=== PATIENT | female | born 1965 | race Caucasian/White ===

== ENCOUNTER 2019-01-30 05:41 | Outpatient (CLI) | payer BC ==
[~2019-01-30] VITALS: Ht 160 cm; Wt 78.5 kg
[2019-01-30] MEDS ORDERED: LEVO5TAB12 PO (10:21)
[2019-01-30] MEDS ORDERED: CYCL10TA9 PO (10:21)
[2019-01-30] MEDS ORDERED: PANT40TA3 PO (10:21)
[2019-01-30] MEDS ORDERED: CITA40TA11 PO (10:21)
[2019-01-30] MEDS ORDERED: DUPI300S SQ (10:21)
[2019-01-30] MEDS ORDERED: MAGN400T39 PO (10:21)
[2019-01-30] MEDS ORDERED: CELE-63 PO (10:21)
[2019-01-30] MEDS ORDERED: MIRT30TA6 PO (10:21)
[2019-01-30] MEDS ORDERED: METO-387 PO (10:21)
== END 2019-01-30 10:22 | disposition home or self-care (01) ==
LOC: PREOP 05:41
PROVIDERS: ATTEND Specialist
DX: Z01.818 Encounter for other preprocedural examination (principal)

== ENCOUNTER 2019-02-01 07:32 | Day surgery (SDC) | payer BC ==
[~2019-02-01] VITALS: Ht 160 cm; Wt 78.5 kg
[~2019-02-01 07:32] MED LIST: CELE-63 PO; CITA40TA11 PO; CYCL10TA9 PO; DUPI300S SQ; LEVO5TAB12 PO; MAGN400T39 PO; METO-387 PO; MIRT30TA6 PO; PANT40TA3 PO
[2019-02-01 07:45] VITALS: BP 122/90
[2019-02-01] MEDS ORDERED: MOXIFLOXACIN OPHTH SOLN 5 MG/ML 0.3 ML SYRINGE OP ONE (07:45)
[2019-02-01] MEDS ORDERED: LIDOCAINE PF 1% 2 ML AMP IR PRN (07:45)
[2019-02-01] MEDS ORDERED: MIDAZOLAM 2 MG/2 ML (VERSED) VIAL ONE (07:45)
[2019-02-01] MEDS ORDERED: TIMOLOL MALEATE 0.5% 5 ML (TIMOPTIC) BTL OU PRN (07:45)
[2019-02-01] MEDS ORDERED: POVIDONE (BETADINE) OPHTH SOLN 5% 30 ML OP ONE (07:45)
[2019-02-01] MEDS: TETRACAINE 0.5% OPHTH SOLN 4 ML BTL (SINGLE DOSE ONLY) OU PRN ×3 (07:46→08:03)
[2019-02-01] MEDS: PHENYLEPHRINE 10% OPHTH (NEO-SYN) 5 ML BTL OU SCH ×3 (07:53→08:03)
[2019-02-01] MEDS: CYCLOPENTOLATE 1% (CYCLOGYL) 2 ML DROPS OP SCH ×3 (07:53→08:03)
--- NOTE | 2019-02-01 07:58 | Ophthalmologist Pre-Op Note ---
Pre-Operative Progress Note H&P Reviewed The H&P was reviewed, patient examined and no changes noted. Date H&P Reviewed: Feb 01, 2019 Time H&P Reviewed: 07:58 Pre-Op Dx Cataract, Right Eye JAKE PAYTON MD Feb 01, 2019 07:58
[2019-02-01] MEDS ORDERED: acetaZOLAMIDE ER 500 MG CAP (DIAMOX SEQUELS) PO ONE (08:30)
--- NOTE | 2019-02-01 08:30 | Ophthalmology Operative Report ---
Cataract removal/placement IOL PREOPERATIVE DIAGNOSIS: Cataract Right Eye POSTOPERATIVE DIAGNOSIS: Cataract Right Eye PROCEDURE: Cataract removal and placement of posterior chamber implant, right eye SURGEON: Geoff Payton ANESTHESIA: Topical with sedation COMPLICATIONS: None ESTIMATED BLOOD LOSS: Minimal DESCRIPTION OF PROCEDURE: After proper informed consent was obtained, the patient, a 53 female, was taken to the Operating Room and the right eye was anesthetized with tetracaine. The right eye was then prepped and draped in the usual manner. A wire lid speculum was placed. A paracentesis was made at the left hand position. Preservative free lidocaine was injected into the anterior chamber followed by viscoelastic. A clear corneal incision was made in the temporal position. A capsulorrhexis was preformed and the central nuclear and cortical material were removed. The posterior capsule was polished and Oskar AU00T0 21.5 IOL was placed into the capsular bag. The residual viscoelastic was aspirated and balanced saline solution was injected into the anterior chamber. Moxifloxacin was injected into the anterior chamber. The wound was checked and found to be water tight. The patient tolerated the procedure well without complications. GEOFF PAYTON MD Feb 01, 2019 08:30
[2019-02-01 08:38] VITALS: BP 108/79
--- NOTE | 2019-02-01 10:26 | Anesthesia-General Post-Op ---
MAC Patient Condition Mental Status/LOC: Same as Preop Cardiovascular: Satisfactory Nausea/Vomiting: Absent Respiratory: Satisfactory Pain: Controlled Complications: Absent Post Op Complications Complications None Follow Up Care/Instructions Patient Instructions None needed. Anesthesiology Discharge Order Discharge Order Patient is doing well, no complaints, stable vital signs, no apparent adverse anesthesia problems. No complications reported per nursing. SHREYAS SELF CRNA Feb 01, 2019 10:26
== END 2019-02-01 08:38 | disposition home or self-care (01) ==
LOC: SDC 07:32
PROVIDERS: ATTEND Specialist
DX: H25.11 Age-related nuclear cataract, right eye (principal); I10 Essential (primary) hypertension; F32.9 Major depressive disorder, single episode, unspecified; F17.200 Nicotine dependence, unspecified, uncomplicated; Z88.5 Allergy status to narcotic agent; Z79.1 Long term (current) use of non-steroidal anti-inflammatories (NSAID); Z79.899 Other long term (current) drug therapy; Z80.8 Family history of malignant neoplasm of other organs or systems

== ENCOUNTER 2019-02-06 09:57 | Outpatient (CLI) | payer BC | END 2019-02-06 10:08 | disposition home or self-care (01) | LOC: PREOP 09:57 | PROVIDERS: ATTEND Specialist | DX: Z01.818 Encounter for other preprocedural examination (principal) ==

== ENCOUNTER 2019-02-08 08:20 | Day surgery (SDC) | payer BC ==
[~2019-02-08] VITALS: Ht 160 cm; Wt 78.5 kg
[2019-02-08] MEDS ORDERED: PHENYLEPHRINE 10% OPHTH (NEO-SYN) 5 ML BTL ONE (08:26)
[2019-02-08 08:28] VITALS: BP 126/61
[2019-02-08] MEDS ORDERED: MOXIFLOXACIN OPHTH SOLN 5 MG/ML 0.3 ML SYRINGE OP ONE (08:30)
[2019-02-08] MEDS ORDERED: POVIDONE (BETADINE) OPHTH SOLN 5% 30 ML OP ONE (08:30)
[2019-02-08] MEDS ORDERED: TIMOLOL MALEATE 0.5% 5 ML (TIMOPTIC) BTL OU PRN (08:30)
[2019-02-08] MEDS ORDERED: LIDOCAINE PF 1% 2 ML AMP IR PRN (08:30)
[2019-02-08] MEDS: TETRACAINE 0.5% OPHTH SOLN 4 ML BTL (SINGLE DOSE ONLY) OU PRN ×4 (08:34→08:53)
[2019-02-08] MEDS: PHENYLEPHRINE 10% OPHTH (NEO-SYN) 5 ML BTL OU SCH ×2 (08:41→08:53)
[2019-02-08] MEDS: CYCLOPENTOLATE 1% (CYCLOGYL) 2 ML DROPS OP SCH ×3 (08:41→08:53)
--- NOTE | 2019-02-08 08:53 | Ophthalmologist Pre-Op Note ---
Pre-Operative Progress Note H&P Reviewed The H&P was reviewed, patient examined and no changes noted. Date H&P Reviewed: Feb 08, 2019 Time H&P Reviewed: 08:53 Pre-Op Dx Cataract, Left Eye JAKE PAYTON MD Feb 08, 2019 08:53
[2019-02-08] MEDS ORDERED: MIDAZOLAM 2 MG/2 ML (VERSED) VIAL ONE (08:56)
--- NOTE | 2019-02-08 09:38 | Ophthalmology Operative Report ---
Cataract removal/placement IOL PREOPERATIVE DIAGNOSIS: Cataract Left Eye POSTOPERATIVE DIAGNOSIS: Cataract Left Eye PROCEDURE: Cataract removal and placement of posterior chamber implant, left eye SURGEON: Geoff Payton ANESTHESIA: Topical with sedation COMPLICATIONS: None ESTIMATED BLOOD LOSS: Minimal DESCRIPTION OF PROCEDURE: After proper informed consent was obtained, the patient, a 53 female, was taken to the Operating Room and the left eye was anesthetized with tetracaine. The left eye was then prepped and draped in the usual manner. A wire lid speculum was placed. A paracentesis was made at the left hand position. Preservative free lidocaine was injected into the anterior chamber followed by viscoelastic. A clear corneal incision was made in the temporal position. A capsulorrhexis was preformed and the central nuclear and cortical material were removed. The posterior capsule was polished and an Oskar 21.5 AU00T0 was placed into the capsular bag. The residual viscoelastic was aspirated and balanced saline solution was injected into the anterior chamber. Moxifloxacin was injected into the anterior chamber. The wound was checked and found to be water tight. The patient tolerated the procedure well without complications. GEOFF PAYTON MD Feb 08, 2019 09:38
[2019-02-08 09:45] VITALS: BP 125/80
[2019-02-08] MEDS ORDERED: acetaZOLAMIDE ER 500 MG CAP (DIAMOX SEQUELS) PO ONE (10:00)
--- OUTSIDE RECORDS SUMMARY | 2019-02-08 10:26 | XMS REPORT ---
Author Author WILDA PATEL [facility] Address [address] [place] [address] Care Team Providers Care Claims Supervisor Name Role Phone WILDA PATEL Unavailable PROBLEMS Type Condition ICD9-CM Code AFR89-FQ Code Onset Dates Condition Status SNOMED Code Problem Fatty liver disease, nonalcoholic K76.0 Active 534178354 Problem Psoriasis L40.9 Active 3428029 Problem Hyperlipidemia E78.5 Active 19269793 Problem Metabolic syndrome X E88.81 Active 597840586 Problem Psoriasis vulgaris L40.0 Active 657042051 Problem Elevated serum GGT level R74.8 Active 693729433 Problem Dysthymia F34.1 Active 49975975 Problem Urinary frequency R35.0 Active 659224575 Problem Heartburn R12 Active 48659920 Problem Substance abuse F19.10 Active 78862683 Problem Emotional lability R45.86 Active 62953450 Problem Essential hypertension with goal blood pressure less than 130\/80 I10 Active 27221837 Problem Pulmonary emphysema, unspecified emphysema type J43.9 Active 01771220 Problem Breast cancer screening Z12.39 Active 236508478 Problem Weight loss R63.4 Active 025965382 Problem Colonoscopy refused Z53.20 Active 052672422 Problem Mixed hyperlipidemia E78.2 Active 462280850 Problem Lumbago with sciatica, right side M54.41 Active 991435855750930 Problem Lumbago with sciatica, left side M54.42 Active 919609610 Problem Dental caries K02.9 Active 77206213 Problem High risk medication use Z79.899 Active 482928450 Problem Other chronic pain G89.29 Active 29325094 Problem Hematuria, unspecified type R31.9 Active 44335838 Problem Serum calcium elevated E83.52 Active 81946440 Problem Vitamin D deficiency E55.9 Active 60360947 Problem Epigastric abdominal pain R10.13 Active 50819426 Problem Gynecologic exam normal Z01.419 Active 585470453 Problem Flexural atopic dermatitis L20.89 Active 577639618 Problem 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 Active 238999747 Problem Colon cancer screening Z12.11 Active 048505058 Problem Hypomagnesemia E83.42 Active 658739885 Problem Atopic dermatitis L20.9 Active 22915563 Problem Hypertension I10 Active 24887504 Problem Hypoglycemia E16.2 Active 728606859 ALLERGIES No Information ENCOUNTERS Encounter Location Date Diagnosis [facility] [address] [facility] [id number] [address] November, [facility] [address] [id number] [place] [address] November, Lumbago M54.5 [facility] [address] [id number] [place] [address] November, Leg pain, bilateral M79.604 [facility] [address] [id number] [place] [address]205[address] November, Lumbago M54.5 ; Vision disturbance H53.9 and Hyperlipidemia E78.5 [facility] [address] [id number] [place] [address] November, Elevated AFP R77.2 [facility] [address] [id number] [place] [address] Oct, Flexural atopic dermatitis L20.89 [facility] [address] [id number] [place] [address] Oct, High risk medication use Z79.899 [facility] [address] [id number] [place] [address] Aug, [facility] [address] [id number] [place] [address] Jul, [facility] [address] [id number] [place] [address] Jul, Serum calcium elevated E83.52 and Vitamin D deficiency E55.9 [facility] [address] [id number] [place] [address] Jul, [facility] [address] [id number] [place] [address] Jul, Hypertension I10 ; Hypoglycemia E16.2 ; Colon cancer screening Z12.11 and Left upper quadrant pain R10.12 [facility] [address] [id number] [place] [address] Jul, Atopic dermatitis L20.9 [facility] [address] [id number] [place] [address] May, Serum calcium elevated E83.52 ; Fatty liver disease, nonalcoholic K76.0 ; Hypomagnesemia E83.42 ; Vitamin D deficiency E55.9 and Elevated liver enzymes R74.8 [facility] [address] AVSent[facility] [id number] [place] [address] Apr, High risk medication use Z79.899 ; Dysthymia F34.1 ; Fatty liver disease, nonalcoholic K76.0 ; Serum calcium elevated E83.52 and Viral gastroenteritis A08.4 [facility]ITALCapture Educational Consult[address] ServicesADAM[address] [id number] [place] [address] Feb, [facility] [address] [id number] [place] [address] November, Serum calcium elevated E83.52 and Elevated serum GGT level R74.[address] [id number] [place] [address] November, Fatty liver disease, nonalcoholic K76.0 [facility] [address] [id number] [place] [address] November, High risk medication use Z79.899 ; Hematuria, unspecified type R31.9 ; Dental caries K02.9 ; Urinary frequency R35.0 and Substance abuse F19.10 [facility] [place] [address] AVE [id number] [place] [id number] Sep, [facility] Consult[address]ADAM[address] [id number] [place] [address] Aug, [facility] [address] [id number] [place] 287[address] Aug, [facility] [address] [id number] [place] [address] Jul, [facility] [address] [id number] [place] 66[address] Jun, [facility] [address] [id number] [place] [address]5928[address] Jun, Hematuria, unspecified type R31.[address] [facility] [address] [id number] [place] [address] May, Lumbago with sciatica, left side M54.42 and Hematuria, unspecified type R31.[address] [facility] [address] [id number] [place] [address] May, Hematuria, unspecified type R31.[address] [facility] [address] [id number] [place] [address] Apr, High risk medication use Z79.899 ; Lumbago with sciatica, left side M54.42 ; Lumbago with sciatica, right side M54.41 ; Other chronic pain G89.29 ; Emotional lability R45.86 and Colonoscopy refused Z53.[address] [facility] [address] [id number] [place] [address] Feb, [facility] [address] [id number] [place] [address] Feb, [facility] [address] [facility] [id number] [place] [address] Jan, [facility] [address] [id number] [place] [address] Jan, Psoriasis vulgaris L40.[address] [facility] [address] [id number] [place] [address] Jan, High risk medication use Z79.[address] [facility] [address] [id number] [place] [address] Dec, Psoriasis vulgaris L40.[address] [facility] [address] [id number] [place] [id number] Oct, Mixed hyperlipidemia E78.2 and High risk medication use Z79.[address] [facility] [address] [id number] [place] [address] Oct, [facility] [address] [id number] [place] [address] Oct, [facility] [address] [id number] [place] [address] Oct, Hyperlipidemia E78.5 and Weight loss R63.[address] [facility] [address] [id number] [place] 16[address] Oct, Gynecologic exam normal Z01.419 ; Breast cancer screening Z12.39 ; Weight loss R63.4 and Colon cancer screening Z12.[address] [facility] [address] [id number] [place] [address] Jul, [facility] [address] [id number] [place] 35538[address] Jul, High risk medication use Z79.[address] [facility] [address] [id number] [place] 458[address]190 Jul, Metabolic syndrome X E88.81 ; Elevated serum GGT level R74.8 ; Dysthymia F34.1 and 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 [facility] [address] [id number] [place] [address] Jun, [facility] [address] [id number] [place] 605[address]87[address] May, [facility] [address] [id number] [place] [address] May, [facility] [address] [id number] [place] [address] May, High risk medication use Z79.[address] [facility] [address] [id number] [place] [address] May, [facility] [address] [id number] [place] [address] May, Psoriasis vulgaris L40.0 and 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.[address] [facility] [address] [id number] [place] [address] Mar, Hyperlipidemia E78.[address] [facility] [address] [id number] [place] [address]49[address] Mar, [facility] [address] [id number] [place] 8558[address] Mar, [facility] [address] [id number] [place] 151986013 Mar, Fatty liver disease, nonalcoholic K76.0 and Hyperlipidemia E78.[address] [facility] [address] [id number] [place] [address] Mar, [facility] [address] [id number] [place] 8479[address] Mar, Fatty liver disease, nonalcoholic K76.0 ; Psoriasis L40.9 and Hyperlipidemia E78.[address] [facility] [address] [id number] [place] [address] Mar, [facility] [address] [facility] [id number] [place] [address] Feb, [facility] [address] [id number] [place] 18[address]806[address] Feb, [facility] [address] [id number] [place] 85[address] Jan, [facility] [address] [id number] [place] 47[address] Dec, [facility] [address] [id number] [place] 1775[address]487 Dec, [facility] [address] [facility] [id number] [address] November, [facility] [address] [id number] [place] [address]6835[address] November, [facility] [address] [address] [id number] [place] 386505881 Oct, [facility] [address] [id number] [place] 445204703 Oct, Fatty liver disease, nonalcoholic K76.0 and Encounter for immunization Z23 [facility] [address] [id number] [address] Oct, [facility] [address] [id number] [place] 6[address]63[address] Sep, Fatty liver disease, nonalcoholic K76.0 [facility] [address] [id number] [place] 72461970[address] Sep, Fatty liver disease, nonalcoholic K76.0 ; High risk medication use Z79.899 ; Emotional lability R45.86 ; Hyperlipidemia E78.5 and Essential hypertension with goal blood pressure less than 130\/80 I10 [facility] [address] [facility] [id number] [place] [address] Sep, [facility] [address] [id number] [place] 025877419 Aug, Mixed hyperlipidemia E78.2 and Heartburn R12 [facility] [address] [id number] [place] 872389765 Aug, High risk medication use Z79.899 ; Emotional lability R45.86 ; Pulmonary emphysema, unspecified emphysema type J43.9 and Heartburn R12 [facility] [address] [id number] [place] 626742510 Jul, [facility] [address] [id number] [place] 732845580 Jul, [facility] [address] [id number] [place] 7941318[address] Jun, [facility] JAIR [address] [place] [address] AVE [id number] [place] 517733896 May, Right upper quadrant abdominal pain R10.11 and Fatty liver K76.0 [facility] [address] [place] [address] AVE [id number] [place] 214424650 Apr, Elevated AFP R77.2 ; Fatty liver K76.0 ; Unspecified cirrhosis of liver K74.60 ; High risk medication use Z79.899 ; Anhedonia R45.84 and Psoriasis L40.9 [facility] S[address]iento[address] [place] [address] AVE [id number] [place] 834131242 Apr, [facility] [address] [place] [address] AVSent[facility] Medical [id number] [place] 597787256 Apr, Elevated liver enzymes R74.8 [facility] [address] [place] [address] AVE [id number] [place] 113741342 Apr, Abdominal pain, left lower quadrant R10.32 ; Mixed hyperlipidemia E78.2 and Hyperlipidemia 272.4 [facility] [address] [id number] [place] 088[address]130 09 Apr, 2015 Encounter for routine gynecological examination Z01.419 and Breast cancer screening Z12.39 [facility] S[address]iento[address] [place] [address] AVE [id number] [place] 782292331 Apr, Abdominal pain, left lower quadrant R10.32 ; Mixed hyperlipidemia E78.2 and Lumbago M54.5 [facility] [address] [place] [address] AVE [id number] [place] 420143034 17 Mar, 2015 Psoriasis 696.1 ; Hyperlipidemia 272.4 and Chronic pain 338.29 [facility] [address] [id number] [place] 182494547 Mar, [facility] Sarmiento[address] [place] [address] A[address] [id number] [place] 595935984 Mar, [facility] [address] [id number] [place] 911110341 Mar, Rash and nonspecific skin eruption 782.[address] [facility] [address] [id number] [place] 653323906 Feb, Dermatitis 692.9 and Thoracic or lumbosacral neuritis or radiculitis, unspecified 724.4 [facility] [address] [id number] [place] 029176142 Feb, Dermatitis 692.9 and Follow-up examination V67.9 [facility] [address] [id number] [place] 8501535[address] Jan, [facility] [address] [id number] [place] 930464700 Jan, Allergic dermatitis 692.9 [facility] [address] [id number] [place] 589365687 Jan, Rash and nonspecific skin eruption 782.1 [facility] [address] [id number] [place] 720063584 Jan, [facility] [address] [id number] [place] 796930871 Jan, Dermatitis 692.9 and Environmental allergies V15.09 [facility] [address] [id number] [place] 044650527 Dec, [facility] [address] [id number] [place], [place] 193850431 Dec, [facility] [address] [id number] [place] 738281391 Dec, [facility] [address] [id number] [place] 283097315 November, [facility] [address] [id number] [place], [place] 393420779 November, Muscle spasm 728.85 [facility] [address] [facility] [id number] [place] [address] 14 Oct, 2014 [facility] [address] [id number] [place] [address] 13 Oct, 2014 [facility] [place] [facility] [address] [id number] [place] [address] 23 Sep, 2014 [facility] [address] [id number] [place] [address] 23 Sep, 2014 [facility] [place] [facility] [address] [id number] [place] [address] 20 Sep, 2014 [facility] [address] [id number] [place] [address] 20 Sep, 2014 [facility] [place] [facility] [address] [id number] [place] [address] 19 Sep, 2014 [facility] [place] [facility] [address] [id number] [place] [address] 19 Sep, 2014 [facility] [address] [id number] [place] [address] 16 Sep, 2014 [facility] [place] [facility] [address] [id number] [place] [address] 16 Sep, 2014 [facility] [address] [id number] [place] [address] Aug, [facility] [place] [facility] [address] [id number] [place] [address] Aug, [facility] [place] [facility] [address] [id number] [place] [address] 15 Jul, 2014 [facility] [place] [facility] [address] [id number] [place] [address] Jul, [facility] [place] [facility] [address] [id number] [place] [address] Jul, [facility] [place] [facility] [address] [id number] [place] [address] Jul, [facility] [place] [facility] [address] [id number] [place] [address] Jul, [facility] [place] [facility] [address] [id number] [place] [address] Jul, [facility] [place] [facility] [address] [id number] [place] [address] Jun, [facility] [place] [facility] [address] [id number] [place] [address] Jun, [facility] [place] [facility] [address] [id number] [place] [address] Jun, [facility] [place] [facility] [address] [id number] [place] [address] Jun, [facility] [place] [facility] [address] [id number] [place] [address] Jun, [facility] [place] [facility] [address] [id number] [place] [address] Jun, [facility] [place] [facility] [address] [id number] [place] [address] Jun, [facility] [place] [facility] [address] [id number] [place] [address] Jun, [facility] [place] [facility] [address] [id number] [place] [address] May, [facility] [place] [facility] [address] [id number] [place] [address] May, [facility] [place] [facility] [address] [id number] [place] [address] May, [facility] [place] [facility] [address] [id number] [place] [address] May, [facility] [place] [facility] [address] [id number] [place] [address] May, [facility] [place] [facility] [address] [id number] [place] [address] Apr, [facility] [place] [facility] [address] [id number] [place] [address] Apr, [facility] [place] [facility] [address] [id number] [place] [address] Apr, [facility] [place] [facility] [address] [id number] [place] [address] 24 Apr, 2014 [facility] [place] [facility] [address] [id number] [place] [address] Apr, [facility] [place] [facility] [address] [id number] [place] [address] Apr, [facility] [place] [facility] [address] [id number] [place] [address] Apr, [facility] [place] [facility] [address] [id number] [place] [address] Apr, [facility] [place] [facility] [address] [id number] [place] [address] Apr, [facility] [place] [facility] [address] [id number] [place] [address] 20 Apr, 2014 [facility] [place] [facility] [address] [id number] [place] [address] 17 Apr, 2014 [facility] [place] [facility] [address] [id number] [place] [address] 17 Apr, 2014 [facility] [place] [facility] [address] [id number] [place] [address] 16 Apr, 2014 [facility] [place] [facility] [address] [id number] [place] [address] 16 Apr, 2014 [facility] [place] [facility] [address] [id number] [place] [address] 15 Apr, 2014 [facility] [place] [facility] [address] [id number] [place] [address] 15 Apr, 2014 [facility] [place] [facility] [address] [id number] [place] [address] Apr, [facility] [place] [facility] [address] [id number] [place] [address] Apr, [facility] [place] [facility] [address] [id number] [place] [address] Apr, [facility] [place] [facility] [address] [id number] [place] [address] Apr, [facility] [place] [facility] [address] [id number] [place] [address] Apr, [facility] [place] [facility] [address] [id number] [place] [address] Apr, [facility] [place] [facility] [address] [id number] [place] [address] Apr, [facility] [place] [facility] [address] [id number] [place] [address] Apr, [facility] [place] [facility] [address] [id number] [place] [address] Apr, [facility] [place] [facility] [address] [id number] [place] [address] Apr, [facility] [place] [facility] [address] [id number] [place] [address] Mar, [facility] [place] [facility] [address] [id number] [place] [address] Mar, [facility] [place] [facility] [address] [id number] [place] [address] Feb, [facility] [place] [facility] [address] [id number] [place] [address] Feb, [facility] [place] [facility] [address] [id number] [place] [address] Feb, [facility] [place] [facility] [address] [id number] [place] [address] Feb, [facility] [place] [facility] [address] [id number] [place] [address] Jan, [facility] [place] [facility] [address] [id number] [place] [address] Jan, [facility] [place] [facility] [address] [id number] [place] [address] Jan, [facility] [place] [facility] [address] [id number] [place] [address] Jan, [facility] [place] [facility] [address] [id number] [place] [address] Jan, [facility] [place] [facility] [address] [id number] [place] [address] Jan, [facility] [place] [facility] [address] [id number] [place] [address] Jan, [facility] [place] [facility] [address] [id number] [place] [address] Jan, [facility] [place] [facility] [address] [id number] [place] [address] Jan, [facility] [place] [facility] [address] [id number] [place] [address] Jan, [facility] [place] [facility] [address] [id number] [place] [address] Jan, [facility] [place] [facility] [address] [id number] [place] [address] Dec, [facility] [place] [facility] [address] [id number] [place] [address] Dec, [facility] [place] [facility] [address] [id number] [place] [address] Dec, [facility] [place] [facility] [address] [id number] [place] [address] Dec, [facility] [place] [facility] [address] [id number] [place] [address] November, [facility] [address] [id number] [place] [address] November, [facility] [address] [id number] [place] [address] November, [facility] [address] [id number] [place] [address] November, [facility] [address] [id number] [place] [address] November, [facility] [address] [id number] [place] [address] November, [facility] [address] [id number] [place] [address] November, [facility] [address] [id number] [place] [address] November, [facility] [address] [id number] [place] [address] November, [facility] [address] [id number] [place] [address] November, [facility] [address] [id number] [place] [address] November, [facility] [address] [id number] [place] [address] Oct, [facility] [address] [id number] [place] [address] Oct, [facility] [place] [facility] [address] [id number] [place] [address] Oct, [facility] [place] [facility] [address] [id number] [place] [address] Oct, [facility] [address] [id number] [place] [address] Oct, [facility] [place] [facility] [address] [id number] [place] [address] 15 Oct, 2013 [facility] [place] [facility] [address] [id number] [place] [address] 28 Sep, 2013 [facility] [place] [facility] [address] [id number] [place] [address] Sep, [facility] [place] [facility] [address] [id number] [place] [address] Sep, [facility] [place] [facility] [address] [id number] [place] [address] Sep, [facility] [place] [facility] [address] [id number] [place] [address] Sep, [facility] [place] [facility] [address] [id number] [place] [address] Sep, [facility] [place] [facility] [address] [id number] [place] [address] Sep, [facility] [place] [facility] [address] [id number] [place] [address] Sep, [facility] [place] [facility] [address] [id number] [place] [address] Sep, [facility] [place] [facility] [address] [id number] [place] [address] Sep, [facility] [place] [facility] [address] [id number] [place] [address] Sep, [facility] [place] [facility] [address] [id number] [place] [address] Aug, [facility] [place] [facility] [address] [id number] [place] [address] Aug, [facility] [place] [facility] [address] [id number] [place] [address] Aug, [facility] [place] [facility] [address] [id number] [place] [address] Aug, [facility] [address] [id number] [place] [address] Jul, [facility] [place] [facility] [address] [id number] [place] [address] Jul, [facility] [place] [facility] [address] [id number] [place] [address] Jul, [facility] [place] [facility] [address] [id number] [place] [address] Jul, [facility] [place] [facility] [address] [id number] [place] [address] Jul, [facility] [place] [facility] [address] [id number] [place] [address] Jul, [facility] [place] [facility] [address] [id number] [place] [address] Jul, [facility] [place] [facility] [address] [id number] [place] [address] Jul, [facility] [place] [facility] [address] [id number] [place] [address] Jul, [facility] [place] [facility] [address] [id number] [place] [address] Jul, [facility] [place] [facility] [address] [id number] [place] [address] Jul, [facility] [place] [facility] [address] [id number] [address] Jul, [facility] [place] [facility] [address] [id number] [place] [address] Jul, [facility] [place] [facility] [address] [id number] [place] [address] Jun, [facility] [place] [facility] [address] [id number] [place] [address] Jun, [facility] [place] [facility] [address] [id number] [place] [address] Jun, [facility] [address] [id number] [place] [address] Jun, [facility] [place] [facility] [address] [id number] [place] [address] Jun, [facility] [place] [facility] [address] [id number] [place] [address] Jun, [facility] [address] [id number] [place] [address] Jun, [facility] [place] [facility] [address] [id number] [place] [address] Jun, [facility] [address] [id number] [place] [address] Jun, [facility] [address] [id number] [place] [address] Jun, [facility] [address] [id number] [place] [address] Jun, [facility] [place] [facility] [address] [id number] [place] [address] Jun, [facility] [place] [facility] [address] [id number] [place] [address] Jun, [facility] [place] [facility] [address] [id number] [place] [address] Jun, [facility] [place] [facility] [address] [id number] [place] [address] Jun, [facility] [place] [facility] [address] [id number] [place] [address] Jun, [facility] [place] [facility] [address] [id number] [place] [address] Jun, [facility] [place] [facility] [address] [id number] [place] [address] Jun, [facility] [place] [facility] [address] [id number] [place] [address] Jun, [facility] [place] [facility] [address] [id number] [place] [address] Jun, [facility] [place] [facility] [address] [id number] [place] [address] Jun, [facility] [place] [facility] [address] [id number] [place] [address] Jun, [facility] [place] [facility] [address] [id number] [place] [address] Jun, [facility] [place] [facility] [address] [id number] [place] [address] May, [facility] [place] [facility] [address] [id number] [place] [address] May, [facility] [place] [facility] [address] [id number] [place] [address] Apr, [facility] [address] [id number] [id number] Mar, [facility] [address] [facility] [id number] [place] [address] Feb, [facility] [place] [facility] [address] [id number] [place] [address] Feb, [facility] [place] [facility] [address] [id number] [place] [address] Jan, [facility] [place] [facility] [address] [id number] [place] [address] Jan, [facility] [place] [facility] [address] [id number] [place] [address] November, [facility] [place] [facility] [address] [id number] [place] [address] November, [facility] [place] [facility] [address] [id number] [place] [address] Oct, [facility] [address] [facility] [id number] [place] [address] Oct, [facility] [address] [facility] [id number] [place] [id number] November, [facility] [address] [facility] [id number] [place] [address] May, [facility] [address] [facility] [id number] [place] [address] Feb, IMMUNIZATIONS No Known Immunizations SOCIAL HISTORY Never Assessed REASON FOR VISIT PLAN OF CARE VITAL SIGNS MEDICATIONS Unknown Medications RESULTS No Results PROCEDURES No Known procedures INSTRUCTIONS MEDICATIONS ADMINISTERED No Known Medications MEDICAL (GENERAL) HISTORY Type Description Date Medical History hypertension Medical History gastroesophageal reflux disease (GERD) Medical History hyperlipidemia Medical History obesity Medical History chronic pain Medical History psoriasis Medical History abnormal liver enzymes, fatty liver disease Medical History abdominal tumor Medical History anxiety, depression Medical History [facility] abdomen at [facility] 09-14-16 shows a ventral hernia and fatty liver disease Medical History Pt no-showed colonoscopy Medical History no showed mammogram Medical History large hiatal hernia and normal liver per CT Medical History US shows right kidney-column of Bertine and fatty liver Medical History 12-13-18 normal joanne's Medical History 12-12-18 cataract, eye exam Surgical History tonsillectomy Surgical History appendectomy 03/2011 Surgical History hysterectomy, total with bilateral salpingo-oophorectomy (BSO) 03/2011 Surgical History large abdominal tumor/uterus removed 2010 Hospitalization History past surgeries Hospitalization History [facility] back pain /Hernia 10/2018
--- OUTSIDE RECORDS SUMMARY | 2019-02-08 10:27 | XMS REPORT ---
Author Author ANTON REESE Organization [facility] Address [address] [place] [address] Care Team Providers Care Medical Detailist Name Role Phone ANTON REESE Unavailable PROBLEMS Type Condition ICD9-CM Code BLP77-LN Code Onset Dates Condition Status SNOMED Code Problem Fatty liver disease, nonalcoholic K76.0 Active 298197426 Problem Psoriasis L40.9 Active 1169161 Problem Hyperlipidemia E78.5 Active 27939973 Problem Metabolic syndrome X E88.81 Active 760027470 Problem Psoriasis vulgaris L40.0 Active 560416915 Problem Elevated serum GGT level R74.8 Active 365084932 Problem Dysthymia F34.1 Active 40768745 Problem Urinary frequency R35.0 Active 682694837 Problem Heartburn R12 Active 07986856 Problem Substance abuse F19.10 Active 02942494 Problem Emotional lability R45.86 Active 05503054 Problem Essential hypertension with goal blood pressure less than 130\/80 I10 Active 52277450 Problem Pulmonary emphysema, unspecified emphysema type J43.9 Active 02110431 Problem Breast cancer screening Z12.39 Active 670639868 Problem Weight loss R63.4 Active 397720918 Problem Colonoscopy refused Z53.20 Active 776524267 Problem Mixed hyperlipidemia E78.2 Active 009726986 Problem Lumbago with sciatica, right side M54.41 Active 810064989018418 Problem Lumbago with sciatica, left side M54.42 Active 358583182 Problem Dental caries K02.9 Active 47820894 Problem High risk medication use Z79.899 Active 069831428 Problem Other chronic pain G89.29 Active 59563825 Problem Hematuria, unspecified type R31.9 Active 68040972 Problem Serum calcium elevated E83.52 Active 11470101 Problem Vitamin D deficiency E55.9 Active 41236370 Problem Epigastric abdominal pain R10.13 Active 48245970 Problem Gynecologic exam normal Z01.419 Active 306057552 Problem Flexural atopic dermatitis L20.89 Active 690934549 Problem 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 Active 806382783 Problem Colon cancer screening Z12.11 Active 878416486 Problem Hypomagnesemia E83.42 Active 845629331 Problem Atopic dermatitis L20.9 Active 67655055 Problem Hypertension I10 Active 80061877 Problem Hypoglycemia E16.2 Active 402675752 ALLERGIES No Information ENCOUNTERS Encounter Location Date Diagnosis [facility] [address] [id number] [address] November, [facility] [address] [id number][place] [id number] November, Lumbago M54.5 [facility] [address] [id number], [place] [address] November, Leg pain, bilateral M79.604 [facility] [address] [id number], [place] [address] November, Lumbago M54.5 ; Vision disturbance H53.9 and Hyperlipidemia E78.5 [facility] [address] [facility] [address] [id number] [id number] November, Elevated AFP R77.2 [facility] [address] [id number][place] [address] Oct, Flexural atopic dermatitis L20.89 [facility] [address] [id number], [place] [address] Oct, High risk medication use Z79.899 [facility] [address] [id number], [place] [address] Aug, [facility] [address] [id number], [place] [address] Jul, [facility] [address] [id number], [place] [address] Jul, Serum calcium elevated E83.52 and Vitamin D deficiency E55.[address] [facility] [address] [id number], [place] [address] Jul, [facility] [address] [id number], [place] [id number] Jul, Hypertension I10 ; Hypoglycemia E16.2 ; Colon cancer screening Z12.11 and Left upper quadrant pain R10.[address] [facility] [address] [id number], [place] [address] Jul, Atopic dermatitis L20.9 [facility] [id number][place] [address] May, Serum calcium elevated E83.52 ; Fatty liver disease, nonalcoholic K76.0 ; Hypomagnesemia E83.42 ; Vitamin D deficiency E55.9 and Elevated liver enzymes R74.8 [facility] [address] [place] [id number] [address] Apr, High risk medication use Z79.899 ; Dysthymia F34.1 ; Fatty liver disease, nonalcoholic K76.0 ; Serum calcium elevated E83.52 and Viral gastroenteritis A08.4 [facility] [id number], [place] [address] Feb, [facility] [id number], [place] [address] November, Serum calcium elevated E83.52 and Elevated serum GGT level R74.[address] [facility] [address] [id number], [place] [address] November, Fatty liver disease, nonalcoholic K76.[address] [facility] [address] [id number], [place] [address] November, High risk medication use Z79.899 ; Hematuria, unspecified type R31.9 ; Dental caries K02.9 ; Urinary frequency R35.0 [address]19.10 [facility] [id number], [place] [id number] Sep, [facility] [address] [id number] [place] [address] Aug, [facility] [address] [id number] [place] [address] Aug, [facility] [address] [id number], [place] [address] Jul, [facility] [address] [id number], [place] [address] Jun, [facility] [address] [id number], [place] [address] Jun, Hematuria, unspecified type R31.[address] [facility] [address] [id number], [place] [address] May, Lumbago with sciatica, left side M54.42 and Hematuria, unspecified type R31.[address] [facility] [address] [id number], [place] [address] May, Hematuria, unspecified type R31.[address] [facility] [address] [id number], [place] [address] Apr, High risk medication use Z79.899 ; Lumbago with sciatica, left side M54.42 ; Lumbago with sciatica, right side M54.41 ; Other chronic pain G89.29 ; Emotional lability R45.86 and Colonoscopy refused Z53.[address] [facility] [address] [id number], [place] [address] Feb, [facility] [address] [id number], [place] [address] Feb, [facility] [address] [id number], [place] [address] Jan, [facility] [address] [id number], [place] [address] Jan, Psoriasis vulgaris L40.[address] [facility] [address] [id number], [place] 288[address] Jan, High risk medication use Z79.[address] [facility] [address] [id number] [place] [address] Dec, Psoriasis vulgaris L40.[address] [facility] [address] [id number] [place] [address] Oct, Mixed hyperlipidemia E78.2 and High risk medication use Z79.[address] [facility] [address] [id number], [place] 555480277 Oct, [facility] [address] [id number], [place] [address] Oct, [facility] [address] [id number], [place] [address] Oct, Hyperlipidemia E78.5 and Weight loss R63.[address] [facility] [address] [id number], [place] [address] Oct, Gynecologic exam normal Z01.419 ; Breast cancer screening Z12.39 ; Weight loss R63.4 and Colon cancer screening Z12.[address] [facility] [address] [id number], [place] [address] Jul, [facility] [address] [id number], [place] [address] Jul, High risk medication use Z79.[address] [facility] [address] [id number], [place] 85[address] Jul, Metabolic syndrome X E88.81 ; Elevated serum GGT level R74.8 ; Dysthymia F34.1 and 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 [facility] [address] [id number], [place] 48[address]1642 Jun, [facility] [address] [id number], [place] [address]84[address] May, [facility] [address] [id number], [place] [address]10[address]134 May, [facility] [address] [id number] [place] [address] May, High risk medication use Z79.[address] [facility] [address] [id number] [place] [address] May, [facility] [address] [id number] [place] [address] May, Psoriasis vulgaris L40.0 and 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.[address] [facility] [address] [id number] [place] 267[address]87[address] Mar, Hyperlipidemia E78.[address] [facility] [address] [id number] [place] [address] Mar, [facility] [address] [id number] [place] 460368193 Mar, [facility] [address] [id number] [place] 406[address] Mar, Fatty liver disease, nonalcoholic K76.0 and Hyperlipidemia E78.[address] [facility] [address] [id number] [place] 59606[address] Mar, [facility] [address] [id number], [place] 435483820 Mar, Fatty liver disease, nonalcoholic K76.0 ; Psoriasis L40.9 and Hyperlipidemia E78.[address] [facility] [address] [id number] [place] 15[address] Mar, [facility] [address] [id number] [place] [address] Feb, [facility] [address] [id number] [place] 290087[address] Feb, [facility] [address] [id number] [place] 744990138 Jan, [facility] [address] [id number] [place] [address]36106[address] Dec, [facility] [address] [id number] [place] 765274851 Dec, [facility] [address] [id number], [place] [address] November, [facility] [address] [id number] [place] [id number] November, [facility] [address] [id number], [place] 2228[address]666 Oct, [facility] [address] [id number], [place] 267898955 Oct, Fatty liver disease, nonalcoholic K76.0 and Encounter for immunization Z23 [facility] [address] [id number], [place] [address] Oct, [facility] [address] [id number], [place] 415692190 Sep, Fatty liver disease, nonalcoholic K76.0 [facility] [address] [id number], [place] 283599641 Sep, Fatty liver disease, nonalcoholic K76.0 ; High risk medication use Z79.899 ; Emotional lability R45.86 ; Hyperlipidemia E78.5 and Essential hypertension with goal blood pressure less than 130\/80 I10 [facility] [address] [id number], [place] [address] Sep, [facility] [address] [id number], [place] 436162615 Aug, Mixed hyperlipidemia E78.2 and Heartburn R12 [facility] [address] [id number], [place] [address]2767[address] Aug, High risk medication use Z79.899 ; Emotional lability R45.86 ; Pulmonary emphysema, unspecified emphysema type J43.9 and Heartburn R12 [facility] [address] [id number], [place] [address] Jul, [facility] [address] [id number], [place] [id number] Jul, [facility] [address] [id number], [place] 355[address]62[address] Jun, [facility] Beckwith [facility] [address] [id number], [place] [address]38228911 May, Right upper quadrant abdominal pain R10.11 and Fatty liver K76.0 [facility] JAIR [address] [place] [address] AVE [id number], [place] 208057492 Apr, Elevated AFP R77.2 ; Fatty liver K76.0 ; Unspecified cirrhosis of liver K74.60 ; High risk medication use Z79.899 ; Anhedonia R45.84 and Psoriasis L40.9 [facility] [address] [address] [place] [address] AVE [id number], [place] [id number] Apr, [facility] Sarmiento[address] [place] [address] AVE [id number], [place] 774870464 Apr, Elevated liver enzymes R74.8 [facility] [address] [place] [address] AVE [id number], [place] 153888040 Apr, Abdominal pain, left lower quadrant R10.32 ; Mixed hyperlipidemia E78.[address] [facility] [address] [place] [address] AVE [id number], [place] 483204698 Apr, Encounter for routine gynecological examination Z01.419 and Breast cancer screening Z12.39 [facility] Sarmiento[address] [place] [address] AVE [id number], [place] 449522357 Apr, Abdominal pain, left lower quadrant R10.32 ; Mixed hyperlipidemia E78.[address] [address] [place] [address] AVE [id number], [place] [id number] Mar, Psoriasis 696.1 ; Hyperlipidemia 272.4 and Chronic pain 338.29 [facility] [address] [id number], [place] 718955945 Mar, [facility] JAIR S[address] [place] [address] AVE [id number], [place] 123110658 Mar, [facility] [address] [id number] [place] 149567052 Mar, Rash and nonspecific skin eruption 782.1 [facility] [address] [id number] [place] 650582082 Feb, Dermatitis 692.9 and Thoracic or lumbosacral neuritis or radiculitis, unspecified 724.4 [facility] [address] [id number], [place] 000432402 Feb, Dermatitis 692.9 and Follow-up examination V67.[address] [facility] [address] [id number], [place] 155562699 Jan, [facility] [address] [id number], [place] 622298295 Jan, Allergic dermatitis 692.9 [facility] [address] [id number], [place] [id number] Jan, Rash and nonspecific skin eruption 782.1 [facility] [address] [id number], [place] 045388336 Jan, [facility] [address] [id number], [place] 759309815 Jan, Dermatitis 692.9 and Environmental allergies V15.09 [facility] [address] [id number], [place] 928474298 Dec, [facility] [address] [id number] [place] 148768324 Dec, [facility] [address] [id number], [place] 737576877 Dec, [facility] [address] [id number], [place] 1165756[address] November, [facility] [address] [id number], [place] 957357242 November, Muscle spasm 728.85 [facility] [place] [facility] [address] [id number] [place] [address] 14 Oct, 2014 [facility] [place] [facility] [address] [id number] [place] [address] 13 Oct, 2014 [facility] [place] [facility] [address] [id number] [place] [address] 23 Sep, 2014 [facility] [place] [facility] [address] [id number] [place] [address] 23 Sep, 2014 [facility] [place] [facility] [address] [id number] [place] [address] 20 Sep, 2014 [facility] [place] [facility] [address] [id number] [place] [address] 20 Sep, 2014 [facility] [place] [facility] [address] [id number] [place] [address] Sep, [facility] [place] [facility] [address] [id number] [place] [address] 19 Sep, 2014 [facility] [place] [facility] [address] [id number] [place] [address] 16 Sep, 2014 [facility] [place] [facility] [address] [id number] [place] [address] 16 Sep, 2014 [facility] [place] [facility] [address] [id number] [place] [address] Aug, [facility] [place] [facility] [address] [id number], [place] [address] Aug, [facility] [place] [facility] [address] [id number] [place] [address] Jul, [facility] [place] [facility] [address] [id number] [place] [address] 15 Jul, 2014 [facility] [place] [facility] [address] [id number] [place] [address] Jul, [facility] [place] [facility] [address] [id number], [place] [address] Jul, [facility] [place] [facility] [address] [id number] [place] [address] Jul, [facility] [place] [facility] [address] [id number] [place] [address] Jul, [facility] [place] [facility] [address] [id number] [place] [address] Jun, [facility] [place] [facility] [address] [id number] [place] [address] Jun, [facility] [place] [facility] [address] [id number] [place] [address] Jun, [facility] [place] [facility] [address] [id number] [place] [address] Jun, [facility] [place] [facility] [address] [id number] [place] [address] Jun, [facility] [place] [facility] [address] [id number] [place] [address] Jun, [facility] [place] [facility] [address] [id number] [place] [address] Jun, [facility] [place] [facility] [address] [id number] [place] [address] Jun, [facility] [place] [facility] [address] [id number] [place] [address] May, [facility] [place] [facility] [address] [id number] [place] [address] May, [facility] [place] [facility] [address] [id number] [place] [address] May, [facility] [place] [facility] [address] [id number] [place] [address] May, [facility] [place] [facility] [address] [id number] [place] [address] May, [facility] [place] [facility] [address] [id number] [place] [address] Apr, [facility] [place] [facility] [address] [id number] [place] [address] Apr, [facility] [place] [facility] [address] [id number] [place] [address] Apr, [facility] [place] [facility] [address] [id number] [place] [address] Apr, [facility] [place] [facility] [address] [id number] [place] [address] Apr, [facility] [place] [facility] [address] [id number] [place] [address] Apr, [facility] [place] [facility] [address] [id number] [place] [address] Apr, [facility] [place] [facility] [address] [id number] [place] [address] Apr, [facility] [place] [facility] [address] [id number] [place] [address] Apr, [facility] [place] [facility] [address] [id number] [place] [address] 20 Apr, 2014 [facility] [place] [facility] [address] [id number] [place] [address] Apr, [facility] [place] [facility] [address] [id number] [place] [address] 17 Apr, 2014 [facility] [place] [facility] [address] [id number] [place] [address] 16 Apr, 2014 [facility] [place] [facility] [address] [id number] [place] [address] 16 Apr, 2014 [facility] [place] [facility] [address] [id number] [place] [address] 15 Apr, 2014 [facility] [place] [facility] [address] [id number] [place] [address] 15 Apr, 2014 [facility] [place] [facility] [address] [id number] [place] [address] Apr, [facility] [place] [facility] [address] [id number] [place] [address] Apr, [facility] [place] [facility] [address] [id number] [place] [address] Apr, [facility] [place] [facility] [address] [id number] [place] [address] Apr, [facility] [place] [facility] [address] [id number] [place] [address] Apr, [facility] [place] [facility] [address] [id number] [place] [address] Apr, [facility] [place] [facility] [address] [id number] [place] [address] Apr, [facility] [place] [facility] [address] [id number] [place] [address] Apr, [facility] [place] [facility] [address] [id number] [place] [address] Apr, [facility] [place] [facility] [address] [id number] [place] [address] Apr, [facility] [place] [facility] [address] [id number], [place] [address] Mar, [facility] [place] [facility] [address] [id number], [place] [address] Mar, [facility] [place] [facility] [address] [id number] [place] [address] Feb, [facility] [place] [facility] [address] [id number] [place] [address] Feb, [facility] [place] [facility] [address] [id number] [place] [address] Feb, [facility] [place] [facility] [address] [id number] [place] [address] Feb, [facility] [place] [facility] [address] [id number] [place] [address] Jan, [facility] [place] [facility] [address] [id number] [place] [address] Jan, [facility] [place] [facility] [address] [id number] [place] [address] Jan, [facility] [place] [facility] [address] [id number] [place] [address] Jan, [facility] [place] [facility] [address] [id number] [place] [address] Jan, [facility] [place] [facility] [address] [id number] [place] [address] Jan, [facility] [place] [facility] [address] [id number] [place] [address] Jan, [facility] [place] [facility] [address] [id number] [place] [address] Jan, [facility] [place] [facility] [address] [id number] [place] [address] Jan, [facility] [place] [facility] [address] [id number] [place] [address] Jan, [facility] [place] [facility] [address] [id number] [place] [address] Jan, [facility] [place] [facility] [address] [id number] [place] [address] Dec, [facility] [place] [facility] [address] [id number] [place] [address] Dec, [facility] [place] [facility] [address] [id number] [place] [address] Dec, [facility] [place] [facility] [address] [id number] [place] [address] Dec, [facility] [place] [facility] [address] [id number] [place] [address] November, [facility] [place] [facility] [address] [id number] [place] [address] November, [facility] [place] [facility] [address] [id number] [place] [address] November, [facility] [place] [facility] [address] [id number] [place] [address] November, [facility] [place] [facility] [address] [id number] [place] [address] November, [facility] [place] [facility] [address] [id number] [place] [address] November, [facility] [place] [facility] [address] [id number] [place] [address] November, [facility] [place] [facility] [address] [id number] [place] [address] November, [facility] [place] [facility] [address] [id number] [place] [address] November, [facility] [place] [facility] [address] [id number] [place] [address] November, [facility] [place] [facility] [address] [id number] [place] [address] November, [facility] [place] [facility] [address] [id number] [place] [address] Oct, [facility] [place] [facility] [address] [id number] [place] [address] Oct, [facility] [place] [facility] [address] [id number] [place] [address] Oct, [facility] [place] [facility] [address] [id number] [place] [address] Oct, [facility] [place] [facility] [address] [id number] [place] [address] 15 Oct, 2013 [facility] [place] [facility] [address] [address] [id number] [place] [address] 15 Oct, 2013 [facility] [place] [facility] [address] [id number] [place] [address] 28 Sep, 2013 [facility] [place] [facility] [address] [id number] [place] [address] Sep, [facility] [place] [facility] [address] [id number] [place] [address] Sep, [facility] [place] [facility] [address] [id number] [place] [address] Sep, [facility] [place] [facility] [address] [id number] [place] [address] Sep, [facility] [place] [facility] [address] [id number] [place] [address] Sep, [facility] [place] [facility] [address] [id number] [place] [address] Sep, [facility] [place] [facility] [address] [id number] [place] [address] Sep, [facility] [place] [facility] [address] [id number] [place] [address] Sep, [facility] [place] [facility] [address] [id number] [place] [address] Sep, [facility] [place] [facility] [address] [id number] [place] [address] Sep, [facility] [place] [facility] [address] [id number] [place] [address] Aug, [facility] [place] [facility] [address] [id number] [place] [address] Aug, [facility] [place] [facility] [address] [id number] [place] [address] Aug, [facility] [place] [facility] [address] [id number] [place] [address] Aug, [facility] [address] [id number] [place] [address] Jul, [facility] [place] [facility] [address] [id number] [place] [address] Jul, [facility] [address] [id number] [place] [address] Jul, [facility] [place] [facility] [address] [id number] [place] [address] Jul, [facility] [address] [id number] [place] [address] Jul, [facility] [place] [facility] [address] [id number] [place] [address] Jul, [facility] [place] [facility] [address] [id number] [place] [address] Jul, [facility] [address] [id number] [place] [address] Jul, [facility] [place] [facility] [address] [id number] [place] [address] Jul, [facility] [place] [facility] [address] [id number] [place] [address] Jul, [facility] [place] [facility] [address] [id number] [place] [address] Jul, [facility] [place] [facility] [address] [id number] [place] [address] Jul, [facility] [place] [facility] [address] [id number] [place] [address] Jul, [facility] [place] [facility] [address] [id number] [place] [address] Jun, [facility] [place] [facility] [address] [id number] [place] [address] Jun, [facility] [address] [id number] [place] [address] Jun, [facility] [place] [facility] [address] [id number] [place] [address] Jun, [facility] [address] [id number] [place] [address] Jun, [facility] [place] [facility] [address] [id number] [place] [address] Jun, [facility] [address] [id number] [place] [address] Jun, [facility] [address] [id number] [place] [address] Jun, [facility] [address] [id number] [place] [address] Jun, [facility] [address] [id number] [place] [address] Jun, [facility] [place] [facility] [address] [id number] [place] [address] Jun, [facility] [place] [facility] [address] [id number] [place] [address] Jun, [facility] [place] [facility] [address] [id number] [place] [address] Jun, [facility] [place] [facility] [address] [id number], [place] [address] Jun, [facility] [place] [facility] [address] [id number] [place] [address] Jun, [facility] [place] [facility] [address] [id number] [place] [address] Jun, [facility] [place] [facility] [address] [id number] [place] [address] Jun, [facility] [place] [facility] [address] [id number] [place] [address] 05 Jun, 2013 [facility] [address] [id number] [place] [address] Jun, [facility] [place] [facility] [address] [id number] [place] [address] Jun, [facility] [place] [facility] [address] [id number] [place] [address] Jun, [facility] [place] [facility] [address] [id number] [place] [address] Jun, [facility] [place] [facility] [address] [id number] [place] [address] Jun, [facility] [place] [facility] [address] [id number] [place] [address] May, [facility] [address] [id number] [place] [address] May, [facility] [address] [id number] [place] [address] Apr, [facility] [address] [facility] [id number] [id number] Mar, [facility] [address] [id number] [place] [address] Feb, [facility] [place] [facility] [address] [id number], [place] [address] Feb, [facility] [place] [facility] [address] [id number], [place] [address] Jan, [facility] [place] [facility] [address] [id number] [place] [address] Jan, [facility] [place] [facility] [address] [id number] [place] [address] November, [facility] [place] [facility] [address] [id number] [place] [address] November, [facility] [place] [facility] [address] [facility] [address] [id number] [place] [address] Oct, [facility] [address] [facility] [address] [id number] [place] [address] Oct, [facility] [address] [facility] [id number] [place] [id number] November, [facility] [address] [facility] [address] [id number] [place] [address] May, [facility] [address] [facility] [address] [id number] [place] [address] Feb, IMMUNIZATIONS No Known Immunizations SOCIAL HISTORY Never Assessed REASON FOR VISIT PLAN OF CARE VITAL SIGNS Height 63 in 2014-09-29 Weight 190 lbs 2014-09-29 Temperature 98.6 degrees Fahrenheit 2014-09-29 Heart Rate 84 bpm 2014-09-29 Respiratory Rate 16 2014-09-29 Blood pressure systolic 130 mmHg 2014-09-29 Blood pressure diastolic 70 mmHg 2014-09-29 MEDICATIONS Unknown Medications RESULTS No Results PROCEDURES [...] anxiety, depression Medical History CT abdomen at [facility] 09-14-16 shows a ventral hernia and fatty [...] 2010 Hospitalization History past surgeries Hospitalization History [facility] back pain /Hernia 10/2018
--- OUTSIDE RECORDS SUMMARY | 2019-02-08 10:27 | XMS REPORT ---
Author Author WILDA PATEL [facility] Address [address] [place] [address] Care Team Providers Care Core Worker Name Role Phone WILDA PATEL Unavailable PROBLEMS Type Condition ICD9-CM Code TMD68-HH Code Onset Dates Condition Status SNOMED Code Problem Fatty liver disease, nonalcoholic K76.0 Active 778241930 Problem Psoriasis L40.9 Active 2180397 Problem Hyperlipidemia E78.5 Active 35684188 Problem Metabolic syndrome X E88.81 Active 350395769 Problem Psoriasis vulgaris L40.0 Active 436277013 Problem Elevated serum GGT level R74.8 Active 310444047 Problem Dysthymia F34.1 Active 65880176 Problem Urinary frequency R35.0 Active 964258465 Problem Heartburn R12 Active 38353399 Problem Substance abuse F19.10 Active 43473366 Problem Emotional lability R45.86 Active 84285877 Problem Essential hypertension with goal blood pressure less than 130\/80 I10 Active 98887628 Problem Pulmonary emphysema, unspecified emphysema type J43.9 Active 33203268 Problem Breast cancer screening Z12.39 Active 347732449 Problem Weight loss R63.4 Active 259661160 Problem Colonoscopy refused Z53.20 Active 321057306 Problem Mixed hyperlipidemia E78.2 Active 114564361 Problem Lumbago with sciatica, right side M54.41 Active 157032833176437 Problem Lumbago with sciatica, left side M54.42 Active 336019748 Problem Dental caries K02.9 Active 01885824 Problem High risk medication use Z79.899 Active 128342896 Problem Other chronic pain G89.29 Active 75331096 Problem Hematuria, unspecified type R31.9 Active 00796593 Problem Serum calcium elevated E83.52 Active 77879213 Problem Vitamin D deficiency E55.9 Active 25073586 Problem Epigastric abdominal pain R10.13 Active 93313500 Problem Gynecologic exam normal Z01.419 Active 801808807 Problem Flexural atopic dermatitis L20.89 Active 192952359 Problem 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 Active 163875296 Problem Colon cancer screening Z12.11 Active 035698399 Problem Hypomagnesemia E83.42 Active 475654219 Problem Atopic dermatitis L20.9 Active 37261217 Problem Hypertension I10 Active 76377350 Problem Hypoglycemia E16.2 Active 122099121 ALLERGIES No Information ENCOUNTERS Encounter Location Date Diagnosis [facility] [address] [facility] [place] [facility] [id number] [address] November, [facility] [address] [id number], [place] [id number] November, Lumbago M54.5 [facility] [address] [id number], [place] 895188013 November, Leg pain, bilateral M79.604 [facility] [address] [id number], [place] 479157071 November, Lumbago M54.5 ; Vision disturbance H53.9 and Hyperlipidemia E78.5 [facility] [address] [facility] [address] [id number] [place] [id number] November, Elevated AFP R77.2 [facility] [address] [id number], [place] 545000904 Oct, Flexural atopic dermatitis L20.89 [facility] [address] [id number], [place] 217156742 Oct, High risk medication use Z79.899 [facility] [address] [id number] [place] [address] Aug, [facility] [address] [id number], [place] 1585[address] Jul, [facility] [address] [id number] [place] [id number] Jul, Serum calcium elevated E83.52 and Vitamin D deficiency E55.9 [facility] [address] [id number][place] [address] Jul, [facility] [address] [id number], [place] [address]32[address] Jul, Hypertension I10 ; Hypoglycemia E16.2 ; Colon cancer screening Z12.11 and Left upper quadrant pain R10.12 [facility] [address] [id number][place] [id number] Jul, Atopic dermatitis L20.9 [facility] [address] [id number], [place] [address]98[address] May, Serum calcium elevated E83.52 ; Fatty liver disease, nonalcoholic K76.0 ; Hypomagnesemia E83.42 ; Vitamin D deficiency E55.9 and Elevated liver enzymes R74.8 [facility] [address] [id number][place] [address]80 Apr, High risk medication use Z79.899 ; Dysthymia F34.1 ; Fatty liver disease, nonalcoholic K76.0 ; Serum calcium elevated E83.52 and Viral gastroenteritis A08.4 [facility] [address]ADAM[address] [id number], [place] [id number] Feb, [facility] [address] [id number], [place] [id number] November, Serum calcium elevated E83.52 and Elevated serum GGT level R74.[address] [id number], [place] 240867347 November, Fatty liver disease, nonalcoholic K76.0 [facility] [address] [id number], [place] 172278275 November, High risk medication use Z79.899 ; Hematuria, unspecified type R31.9 ; Dental caries K02.9 ; Urinary frequency R35.0 and Substance abuse F19.10 [facility] [address] [place] [address] AVE [id number], [place] [id number] Sep, [facility] [address]ADAM[address] [id number], [place] 8098865[address] Aug, [facility] [address] [id number], [place] 985[address]00[address] Aug, [facility] [address] [id number], [place] 666937336 Jul, [facility] [address] [id number], [place] [address]74[address] Jun, [facility] [address] [id number], [place] 483810467 Jun, Hematuria, unspecified type R31.[address] [facility] [address] [id number], [place] 186277257 May, Lumbago with sciatica, left side M54.42 and Hematuria, unspecified type R31.[address] [facility] [address] [id number], [place] 571745439 May, Hematuria, unspecified type R31.[address] [facility] [address] [id number], [place] 578044999 Apr, High risk medication use Z79.899 ; Lumbago with sciatica, left side M54.42 ; Lumbago with sciatica, right side M54.41 ; Other chronic pain G89.29 ; Emotional lability R45.86 and Colonoscopy refused Z53.[address] [facility] [address] [id number], [place] [id number] Feb, [facility] [address] [id number], [place] 75[address] Feb, [facility] [address] [facility] [place] [facility] [place] [id number], [place] [address] Jan, [facility] [address] [id number], [place] 48[address]55 Jan, Psoriasis vulgaris L40.[address] [facility] [address] [id number], [place] 478007543 Jan, High risk medication use Z79.[address] [facility] [address] [id number] [place] 8929[address]258 Dec, Psoriasis vulgaris L40.[address] [facility] [address] [id number] [place] 094563783 Oct, Mixed hyperlipidemia E78.2 and High risk medication use Z79.[address] [facility] [address] [id number] [place] [address]226[address] Oct, [facility] [address] [id number] [place] 6273[address] Oct, [facility] [address] [id number], [place] [address]65526924 Oct, Hyperlipidemia E78.5 and Weight loss R63.[address] [facility] [address] [id number], [place] 573975310 Oct, Gynecologic exam normal Z01.419 ; Breast cancer screening Z12.39 ; Weight loss R63.4 and Colon cancer screening Z12.[address] [facility] [address] [id number], [place] [address]32109721 Jul, [facility] [address] [id number], [place] 379618948 Jul, High risk medication use Z79.[address] [facility] [address] [id number], [place] 910793274 Jul, Metabolic syndrome X E88.81 ; Elevated serum GGT level R74.8 ; Dysthymia F34.1 and 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 [facility] [address] [id number] [place] 187304537 Jun, [facility] [address] [id number], [place] 649140012 May, [facility] [address] [id number], [place] [address]75[address]242 May, [facility] [address] [id number] [place] 4837[address]408 May, High risk medication use Z79.[address] [facility] [address] [id number] [place] [id number] May, [facility] [address] [id number] [place] 3988[address]102 May, Psoriasis vulgaris L40.0 and Other medical terminologist (current) drug therapy Z79.[address] [facility] [address] [id number] [place] 677236974 Mar, Hyperlipidemia E78.[address] [facility] [address] [id number] [place] 490149245 Mar, [facility] [address] [id number] [place] 443929192 Mar, [facility] [address] [id number] [place] 203849894 Mar, Fatty liver disease, nonalcoholic K76.0 and Hyperlipidemia E78.[address] [facility] [address] [id number] [place] 564145793 Mar, [facility] [address] [id number] [place] 660381456 Mar, Fatty liver disease, nonalcoholic K76.0 ; Psoriasis L40.9 and Hyperlipidemia E78.[address] [facility] [address] [id number] [place] [id number] Mar, [facility] [address] [facility] [id number] [place] [id number] Feb, [facility] [address] [id number] [place] 219868194 Feb, [facility] [address] [id number] [place] 590142995 Jan, [facility] [address] [id number] [place] 896199175 Dec, [facility] [address] [id number] [place] 814862564 Dec, [facility] [address] [facility] [place] [facility] [place] [id number], [place] [address] November, [facility] [address] [id number] [place] 514492757 November, [facility] [address] [id number], [place] 891935697 Oct, [facility] [address] [id number], [place] 117691535 Oct, Fatty liver disease, nonalcoholic K76.0 and Encounter for immunization Z23 [facility] [address] [id number], [place] [address] Oct, [facility] [address] [id number], [place] 475865186 Sep, Fatty liver disease, nonalcoholic K76.0 [facility] [address] [id number], [place] 016638417 Sep, Fatty liver disease, nonalcoholic K76.0 ; High risk medication use Z79.899 ; Emotional lability R45.86 ; Hyperlipidemia E78.5 and Essential hypertension with goal blood pressure less than 130\/80 I10 [facility] [address] [facility] [place] [place] [id number], [place] [address] Sep, [facility] [address] [id number], [place] [id number] Aug, Mixed hyperlipidemia E78.2 and Heartburn R12 [facility] [address] [id number], [place] 677866011 Aug, High risk medication use Z79.899 ; Emotional lability R45.86 ; Pulmonary emphysema, unspecified emphysema type J43.9 and Heartburn R12 [facility] [address] [id number], [place] [id number] Jul, [facility] [address] [id number], [place] 453188518 Jul, [facility] JAIR Beckwith [facility] [address] [id number], [place] [id number] Jun, [facility] JAIR Sarmiento[address] [place] [address] AVE [id number], [place] 141794092 May, Right upper quadrant abdominal pain R10.11 and Fatty liver K76.0 [facility] [address] [place] [address] AVE [id number], [place] 015211950 Apr, Elevated AFP R77.2 ; Fatty liver K76.0 ; Unspecified cirrhosis of liver K74.60 ; High risk medication use Z79.899 ; Anhedonia R45.84 and Psoriasis L40.9 [facility] Sarmiento[address] [place] [address] AVE [id number], [place] 866216379 Apr, [facility] [address] [place] [address] [id number], [place] [id number] Apr, Elevated liver enzymes R74.8 [facility] [address] [place] [address] AVE [id number], [place] [id number] Apr, Abdominal pain, left lower quadrant R10.32 ; Mixed hyperlipidemia E78.2 and Hyperlipidemia 272.4 [facility] [address] [id number], [place] 524055113 09 Apr, 2015 Encounter for routine gynecological examination Z01.419 and Breast cancer screening Z12.39 [facility] Sarmiento[address] [place] [address] AVE [id number], [place] 506141139 Apr, Abdominal pain, left lower quadrant R10.32 ; Mixed hyperlipidemia E78.2 and Lumbago M54.5 [facility] [address] [place] [address] AVE [id number], [place] [id number] 17 Mar, 2015 Psoriasis 696.1 ; Hyperlipidemia 272.4 and Chronic pain 338.29 [facility] [address] [id number], [place] 585948809 Mar, [facility] Sarmiento[address] [place] [address] AVE [id number], [place] 714192549 Mar, [facility] [address] [id number] [place] 607304643 Mar, Rash and nonspecific skin eruption 782.[address] [facility] [address] [id number] [place], [place] 268798732 Feb, Dermatitis 692.9 and Thoracic or lumbosacral neuritis or radiculitis, unspecified 724.4 [facility] [address] [id number] [place] 248444515 Feb, Dermatitis 692.9 and Follow-up examination V67.9 [facility] [address] [id number], [place] 719536014 Jan, [facility] [address] [id number], [place] 126140576 Jan, Allergic dermatitis 692.9 [facility] [address] [id number], [place] 087919899 Jan, Rash and nonspecific skin eruption 782.1 [facility] [address] [id number], [place] [id number] Jan, [facility] [address] [id number], [place] 756033030 Jan, Dermatitis 692.9 and Environmental allergies V15.09 [facility] [address] [id number], [place] 145442867 Dec, [facility] [address] [id number], [place] 765232664 Dec, [facility] [address] [id number] [place], [place] 256697520 Dec, [facility] [address] [id number], [place] 512900805 November, [facility] [address] [id number], [place] 471447607 November, Muscle spasm 728.85 [facility] [address] [facility] [place] [facility] [place] [id number] [place] [address] 14 Oct, 2014 [facility] [address] [id number] [place] [address] 13 Oct, 2014 [facility] [place] [facility] [address] [id number] [place] [address] 23 Sep, 2014 [facility] [address] [id number] [place] [address] 23 Sep, 2014 [facility] [place] [facility] [address] [id number] [place] [address] 20 Sep, 2014 [facility] [address] [id number] [place] [address] 20 Sep, 2014 [facility] [place] [facility] [address] [id number] [place] [address] 19 Sep, 2014 [facility] [place] [facility] [address] [id number] [place] [address] 19 Sep, 2014 [facility] [address] [id number] [place] [address] 16 Sep, 2014 [facility] [place] [facility] [address] [id number] [place] [address] 16 Sep, 2014 [facility] [address] [id number] [place] [address] Aug, [facility] [place] [facility] [address] [id number] [place] [address] Aug, [facility] [place] [facility] [address] [id number] [place] [address] 15 Jul, 2014 [facility] [place] [facility] [address] [id number] [place] [address] Jul, [facility] [place] [facility] [address] [id number] [place] [address] Jul, [facility] [place] [facility] [address] [id number] [place] [address] Jul, [facility] [place] [facility] [address] [id number] [place] [address] Jul, [facility] [place] [facility] [address] [id number] [place] [address] Jul, [facility] [place] [facility] [address] [id number] [place] [address] Jun, [facility] [place] [facility] [address] [id number] [place] [address] Jun, [facility] [place] [facility] [address] [id number] [place] [address] Jun, [facility] [place] [facility] [address] [id number] [place] [address] Jun, [facility] [place] [facility] [address] [id number] [place] [address] Jun, [facility] [place] [facility] [address] [id number] [place] [address] Jun, [facility] [place] [facility] [address] [id number] [place] [address] Jun, [facility] [place] [facility] [address] [id number] [place] [address] Jun, [facility] [place] [facility] [address] [id number] [place] [address] May, [facility] [place] [facility] [address] [id number], [place] [address] May, [facility] [place] [facility] [address] [id number] [place] [address] May, [facility] [place] [facility] [address] [id number] [place] [address] May, [facility] [place] [facility] [address] [id number] [place] [address] May, [facility] [place] [facility] [address] [id number] [place] [address] Apr, [facility] [place] [facility] [address] [id number] [place] [address] Apr, [facility] [place] [facility] [address] [id number] [place] [address] Apr, [facility] [place] [facility] [address] [id number] [place] [address] 24 Apr, 2014 [facility] [place] [facility] [address] [id number] [place] [address] Apr, [facility] [place] [facility] [address] [id number] [place] [address] Apr, [facility] [place] [facility] [address] [id number] [place] [address] Apr, [facility] [place] [facility] [address] [id number] [place] [address] Apr, [facility] [place] [facility] [address] [id number] [place] [address] Apr, [facility] [place] [facility] [address] [id number] [place] [address] 20 Apr, 2014 [facility] [place] [facility] [address] [id number] [place] [address] 17 Apr, 2014 [facility] [place] [facility] [address] [id number] [place] [address] 17 Apr, 2014 [facility] [place] [facility] [address] [id number], [place] [address] 16 Apr, 2014 [facility] [place] [facility] [address] [id number] [place] [address] 16 Apr, 2014 [facility] [place] [facility] [address] [id number] [place] [address] 15 Apr, 2014 [facility] [place] [facility] [address] [id number] [place] [address] 15 Apr, 2014 [facility] [place] [facility] [address] [id number] [place] [address] Apr, [facility] [place] [facility] [address] [id number] [place] [address] Apr, [facility] [place] [facility] [address] [id number] [place] [address] Apr, [facility] [place] [facility] [address] [id number] [place] [address] Apr, [facility] [place] [facility] [address] [id number] [place] [address] Apr, [facility] [place] [facility] [address] [id number] [place] [address] Apr, [facility] [place] [facility] [address] [id number] [place] [address] Apr, [facility] [place] [facility] [address] [id number] [place] [address] Apr, [facility] [place] [facility] [address] [id number] [place] [address] Apr, [facility] [place] [facility] [address] [id number] [place] [address] Apr, [facility] [place] [facility] [address] [id number] [place] [address] Mar, [facility] [place] [facility] [address] [id number] [place] [address] Mar, [facility] [place] [facility] [address] [id number] [place] [address] Feb, [facility] [place] [facility] [address] [id number] [place] [address] Feb, [facility] [place] [facility] [address] [id number] [place] [address] Feb, [facility] [place] [facility] [address] [id number] [place] [address] Feb, [facility] [place] [facility] [address] [id number] [place] [address] Jan, [facility] [place] [facility] [address] [id number] [place] [address] Jan, [facility] [place] [facility] [address] [id number] [place] [address] Jan, [facility] [place] [facility] [address] [id number] [place] [address] Jan, [facility] [place] [facility] [address] [id number] [place] [address] Jan, [facility] [place] [facility] [address] [id number] [place] [address] Jan, [facility] [place] [facility] [address] [id number] [place] [address] Jan, [facility] [place] [facility] [address] [id number] [place] [address] Jan, [facility] [place] [facility] [address] [id number] [place] [address] Jan, [facility] [place] [facility] [address] [id number] [place] [address] Jan, [facility] [place] [facility] [address] [id number] [place] [address] Jan, [facility] [place] [facility] [address] [id number] [place] [address] Dec, [facility] [place] [facility] [address] [id number] [place] [address] Dec, [facility] [place] [facility] [address] [id number] [place] [address] Dec, [facility] [place] [facility] [address] [id number] [place] [address] Dec, [facility] [place] [facility] [address] [id number] [place] [address] November, [facility] [address] [id number] [place] [address] November, [facility] [address] [id number] [place] [address] November, [facility] [address] [id number] [place] [address] November, [facility] [address] [id number] [place] [address] November, [facility] [address] [id number] [place] [address] November, [facility] [address] [id number] [place] [address] November, [facility] [address] [id number] [place] [address] November, [facility] [address] [id number] [place] [address] November, [facility] [address] [id number] [place] [address] November, [facility] [address] [id number] [place] [address] November, [facility] [address] [id number] [place] [address] Oct, [facility] [address] [id number] [place] [address] Oct, [facility] [place] [facility] [address] [id number] [place] [address] Oct, [facility] [place] [facility] [address] [id number] [place] [address] Oct, [facility] [address] [id number] [place] [address] Oct, [facility] [place] [facility] [address] [id number] [place] [address] 15 Oct, 2013 [facility] [place] [facility] [address] [id number] [place] [address] 28 Sep, 2013 [facility] [place] [facility] [address] [id number] [place] [address] Sep, [facility] [place] [facility] [address] [id number] [place] [address] Sep, [facility] [place] [facility] [address] [id number] [place] [address] Sep, [facility] [place] [facility] [address] [id number] [place] [address] Sep, [facility] [place] [facility] [address] [id number] [place] [address] Sep, [facility] [place] [facility] [address] [id number] [place] [address] Sep, [facility] [place] [facility] [address] [id number] [place] [address] Sep, [facility] [place] [facility] [address] [id number] [place] [address] Sep, [facility] [place] [facility] [address] [id number] [place] [address] Sep, [facility] [place] [facility] [address] [id number] [place] [address] Sep, [facility] [place] [facility] [address] [id number] [place] [address] Aug, [facility] [place] [facility] [address] [id number] [place] [address] Aug, [facility] [place] [facility] [address] [id number] [place] [address] Aug, [facility] [place] [facility] [address] [id number] [place] [address] Aug, [facility] [address] [id number] [place] [address] Jul, [facility] [place] [facility] [address] [id number] [place] [id number] Jul, [facility] [place] [facility] [address] [id number] [place] [address] Jul, [facility] [place] [facility] [address] [id number] [place] [address] Jul, [facility] [place] [facility] [address] [id number] [place] [address] Jul, [facility] [place] [facility] [address] [id number] [place] [address] Jul, [facility] [place] [facility] [address] [id number] [place] [address] Jul, [facility] [place] [facility] [address] [id number] [place] [address] Jul, [facility] [place] [facility] [address] [id number] [place] [address] Jul, [facility] [place] [facility] [address] [id number] [place] [address] Jul, [facility] [place] [facility] [address] [id number] [place] [address] Jul, [facility] [place] [facility] [address] [id number], [place] [address] Jul, [facility] [place] [facility] [address] [id number] [place] [address] Jul, [facility] [place] [facility] [address] [id number] [place] [address] Jun, [facility] [place] [facility] [address] [id number] [place] [address] Jun, [facility] [place] [facility] [address] [id number] [place] [address] Jun, [facility] [address] [id number] [place] [address] Jun, [facility] [place] [facility] [address] [id number] [place] [address] Jun, [facility] [place] [facility] [address] [id number] [place] [address] Jun, [facility] [address] [id number] [place] [address] Jun, [facility] [place] [facility] [address] [id number] [place] [address] Jun, [facility] [address] [id number] [place] [address] Jun, [facility] [address] [id number] [place] [address] Jun, [facility] [address] [id number] [place] [address] Jun, [facility] [place] [facility] [address] [id number] [place] [address] Jun, [facility] [place] [facility] [address] [id number] [place] [address] Jun, [facility] [place] [facility] [address] [id number] [place] [address] Jun, [facility] [place] [facility] [address] [id number] [place] [address] Jun, [facility] [place] [facility] [address] [id number] [place] [address] Jun, [facility] [place] [facility] [address] [id number] [place] [address] Jun, [facility] [place] [facility] [address] [id number] [place] [address] Jun, [facility] [place] [facility] [address] [id number] [place] [address] Jun, [facility] [place] [facility] [address] [id number] [place] [address] Jun, [facility] [place] [facility] [address] [id number] [place] [address] Jun, [facility] [place] [facility] [address] [id number] [place] [address] Jun, [facility] [place] [facility] [address] [id number] [place] [address] Jun, [facility] [place] [facility] [address] [id number], [place] [address] May, [facility] [place] [facility] [address] [id number], [place] [address] May, [facility] [place] [facility] [address] [id number], [place] [address] Apr, [facility] [address] [id number] [place] [id number] Mar, [facility] [address] [facility] [place] [id number], [place] [address] Feb, [facility] [place] [facility] [address] [id number], [place] [address] Feb, [facility] [place] [facility] [address] [id number], [place] [address] Jan, [facility] [place] [facility] [address] [id number] [place] [address] Jan, [facility] [place] [facility] [address] [id number], [place] [address] November, [facility] [place] [facility] [address] [id number], [place] [address] November, [facility] [place] [facility] [address] [id number] [place] [address] Oct, [facility] [address] [facility] [place] [id number] [place] [address] Oct, [facility] [address] [facility] [id number] [place] [id number] November, [facility] [address] [facility] [place] [id number] [place] [address] May, [facility] [address] [facility] [place] [id number], [place] [address] Feb, IMMUNIZATIONS No Known Immunizations SOCIAL HISTORY [...] anxiety, depression Medical History CT abdomen at [facility] 09-14-16 shows a ventral hernia and [...] 2010 Hospitalization History past surgeries [place] [facility] [place]
--- OUTSIDE RECORDS SUMMARY | 2019-02-08 10:28 | XMS REPORT ---
Author Author WILDA PATEL [facility] Address [address] [place] [address] Care Team Providers Care Fertilizer Supervisor Name Role Phone WILDA PATEL Unavailable PROBLEMS Type Condition ICD9-CM Code CZI60-VN Code Onset Dates Condition Status SNOMED Code Problem Fatty liver disease, nonalcoholic K76.0 Active 213924139 Problem Psoriasis L40.9 Active 9901631 Problem Hyperlipidemia E78.5 Active 96046807 Problem Metabolic syndrome X E88.81 Active 816701080 Problem Psoriasis vulgaris L40.0 Active 556523118 Problem Elevated serum GGT level R74.8 Active 716735206 Problem Dysthymia F34.1 Active 82516216 Problem Urinary frequency R35.0 Active 170467891 Problem Heartburn R12 Active 12384085 Problem Substance abuse F19.10 Active 75771577 Problem Emotional lability R45.86 Active 50909297 Problem Essential hypertension with goal blood pressure less than 130\/80 I10 Active 78651605 Problem Pulmonary emphysema, unspecified emphysema type J43.9 Active 64086849 Problem Breast cancer screening Z12.39 Active 728320975 Problem Weight loss R63.4 Active 589606936 Problem Colonoscopy refused Z53.20 Active 926696793 Problem Mixed hyperlipidemia E78.2 Active 890044377 Problem Lumbago with sciatica, right side M54.41 Active 869927261406180 Problem Lumbago with sciatica, left side M54.42 Active 326024524 Problem Dental caries K02.9 Active 16908147 Problem High risk medication use Z79.899 Active 569990934 Problem Other chronic pain G89.29 Active 88868737 Problem Hematuria, unspecified type R31.9 Active 53418110 Problem Serum calcium elevated E83.52 Active 01285193 Problem Vitamin D deficiency E55.9 Active 16396592 Problem Epigastric abdominal pain R10.13 Active 27015422 Problem Gynecologic exam normal Z01.419 Active 855395834 Problem Flexural atopic dermatitis L20.89 Active 930976050 Problem 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 Active 919103000 Problem Colon cancer screening Z12.11 Active 011077604 Problem Hypomagnesemia E83.42 Active 070736403 Problem Atopic dermatitis L20.9 Active 86547000 Problem Hypertension I10 Active 74602839 Problem Hypoglycemia E16.2 Active 897491376 ALLERGIES No Information ENCOUNTERS Encounter Location Date Diagnosis [facility] [place] [address] [facility] [id number], [place] [address] November, [facility] [address] [id number][place] [address] November, Lumbago M54.5 [facility] [address] [id number][place] [id number] November, Leg pain, bilateral M79.604 [facility] [address] [id number][place] [address]69[address] November, Lumbago M54.5 ; Vision disturbance H53.9 and Hyperlipidemia E78.5 [facility] [address] [id number] [place] [address] November, Elevated AFP R77.2 [facility] [address] [id number][place] [id number] Oct, Flexural atopic dermatitis L20.89 [facility] [address] [id number][place] [address] Oct, High risk medication use Z79.899 [facility] [address] [id number] [place] [address] Aug, [facility] [address] [id number][place] [address] Jul, [facility] [address] [id number] [place] [address] Jul, Serum calcium elevated E83.52 and Vitamin D deficiency E55.9 [facility] [address] [id number], [place] [address]26[address] Jul, [facility] [address] [id number][place] [address] Jul, Hypertension I10 ; Hypoglycemia E16.2 ; Colon cancer screening Z12.11 and Left upper quadrant pain R10.12 [facility] [address] [id number], [place] [id number] Jul, Atopic dermatitis L20.9 [facility] [address] [id number], [place] [address]46[address] May, Serum calcium elevated E83.52 ; Fatty liver disease, nonalcoholic K76.0 ; Hypomagnesemia E83.42 ; Vitamin D deficiency E55.9 and Elevated liver enzymes R74.8 [facility] [address] [facility]VCritical [facility] [id number][place] [id number] Apr, High risk medication use Z79.899 ; Dysthymia F34.1 ; Fatty liver disease, nonalcoholic K76.0 ; Serum calcium elevated E83.52 and Viral gastroenteritis A08.4 [facility] [id number][place] [id number] Feb, [facility] [address] [id number][place] [address] November, Serum calcium elevated E83.52 and Elevated serum GGT level R74.[address] [id number], [place] [address] November, Fatty liver disease, nonalcoholic K76.0 [facility] [address] [id number], [place] [address] November, High risk medication use Z79.899 ; Hematuria, unspecified type R31.9 ; Dental caries K02.9 ; Urinary frequency R35.0 and Substance abuse F19.10 [facility] [address] [place] [address] AVE [id number], [place] [address] Sep, [facility] [id number], [place] [id number] Aug, [facility] [address] [id number], [place] [id number] Aug, [facility] [address] [id number], [place] [address]85129[address] Jul, [facility] [address] [id number], [place] [address] Jun, [facility] [address] [id number], [place] 111625199 Jun, Hematuria, unspecified type R31.[address] [facility] [address] [id number], [place] 277338082 May, Lumbago with sciatica, left side M54.42 and Hematuria, unspecified type R31.[address] [facility] [address] [id number], [place] [id number] May, Hematuria, unspecified type R31.[address] [facility] [address] [id number], [place] [address]22843194 Apr, High risk medication use Z79.899 ; Lumbago with sciatica, left side M54.42 ; Lumbago with sciatica, right side M54.41 ; Other chronic pain G89.29 ; Emotional lability R45.86 and Colonoscopy refused Z53.[address] [facility] [address] [id number], [place] [id number] Feb, [facility] [address] [id number], [place] [id number] Feb, [facility] [place] [address] [facility] [id number], [place] [address] Jan, [facility] [address] [id number], [place] 199315264 Jan, Psoriasis vulgaris L40.[address] [facility] [address] [id number], [place] 599[address] Jan, High risk medication use Z79.[address] [facility] [address] [id number] [place] [address]59[address] Dec, Psoriasis vulgaris L40.[address] [facility] [address] [id number] [place] [address]45[address]82 Oct, Mixed hyperlipidemia E78.2 and High risk medication use Z79.[address] [facility] [address] [id number] [place] [id number] Oct, [facility] [address] [id number] [place] [address] Oct, [facility] [address] [id number], [place] [id number] Oct, Hyperlipidemia E78.5 and Weight loss R63.[address] [facility] [address] [id number], [place] [address]65769133 Oct, Gynecologic exam normal Z01.419 ; Breast cancer screening Z12.39 ; Weight loss R63.4 and Colon cancer screening Z12.[address] [facility] [address] [id number], [place] 15412[address]79 Jul, [facility] [address] [id number], [place] 887305505 Jul, High risk medication use Z79.[address] [facility] [address] [id number], [place] 916880844 Jul, Metabolic syndrome X E88.81 ; Elevated serum GGT level R74.8 ; Dysthymia F34.1 and 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 [facility] [address] [id number] [place] 718[address] Jun, [facility] [address] [id number], [place] [id number] May, [facility] [address] [id number], [place] [address]408964[address] May, [facility] [address] [id number] [place] [address] May, High risk medication use Z79.[address] [facility] [address] [id number] [place] [address] May, [facility] [address] [id number] [place] [id number] May, Psoriasis vulgaris L40.0 and Other director long term care (current) drug therapy Z79.[address] [facility] [address] [id number] [place] [id number] Mar, Hyperlipidemia E78.[address] [facility] [address] [id number] [place] 2126[address] Mar, [facility] [address] [id number] [place] 337[address]8546 Mar, [facility] [address] [id number] [place] [id number] Mar, Fatty liver disease, nonalcoholic K76.0 and Hyperlipidemia E78.[address] [facility] [address] [id number] [place] 958184476 Mar, [facility] [address] [id number] [place] 512913227 Mar, Fatty liver disease, nonalcoholic K76.0 ; Psoriasis L40.9 and Hyperlipidemia E78.[address] [facility] [address] [id number] [place] [id number] Mar, [facility] [address] [facility] [id number] [place] [id number] Feb, [facility] [address] [id number] [place] [id number] Feb, [facility] [address] [id number] [place] 205744248 Jan, [facility] [address] [id number] [place] [id number] Dec, [facility] [address] [id number] [place] 969174932 Dec, [facility] [address] [facility] [id number], [place] [address] November, [facility] [address] [id number] [place] [id number] November, [facility] [address] [id number], [place] 040275880 Oct, [facility] [address] [id number], [place] [id number] Oct, Fatty liver disease, nonalcoholic K76.0 and Encounter for immunization Z23 [facility] [address] [id number], [place] [address] Oct, [facility] [address] [id number], [place] 300023916 Sep, Fatty liver disease, nonalcoholic K76.0 [facility] [address] [id number], [place] 752494164 Sep, Fatty liver disease, nonalcoholic K76.0 ; High risk medication use Z79.899 ; Emotional lability R45.86 ; Hyperlipidemia E78.5 and Essential hypertension with goal blood pressure less than 130\/80 I10 [facility] [address] [facility] [id number], [place] [address] Sep, [facility] [address] [id number], [place] [id number] Aug, Mixed hyperlipidemia E78.2 and Heartburn R12 [facility] [address] [id number], [place] 905236578 Aug, High risk medication use Z79.899 ; Emotional lability R45.86 ; Pulmonary emphysema, unspecified emphysema type J43.9 and Heartburn R12 [facility] [address] [id number], [place] [id number] Jul, [facility] [address] [id number], [place] 669579005 Jul, [facility] JAIR Beckwith [facility] [address] [id number], [place] [id number] Jun, [facility] JAIR [address]arm[address] [place] [address] AVE [id number], [place] [id number] May, Right upper quadrant abdominal pain R10.11 and Fatty liver K76.0 [facility] [address] [address] [place] [address] AVE [id number], [place] [id number] Apr, Elevated AFP R77.2 ; Fatty liver K76.0 ; Unspecified cirrhosis of liver K74.60 ; High risk medication use Z79.899 ; Anhedonia R45.84 and Psoriasis L40.9 [facility] Sarmiento[address] [place] [address] AVE [id number], [place] [id number] Apr, [facility] [address] [place] [address] AVCritical Access [id number], [place] 833617395 Apr, Elevated liver enzymes R74.8 [facility] [address] [place] [address] AVE [id number], [place] [id number] Apr, Abdominal pain, left lower quadrant R10.32 ; Mixed hyperlipidemia E78.2 and Hyperlipidemia 272.4 [facility] [address] [id number], [place] [id number] 09 Apr, 2015 Encounter for routine gynecological examination Z01.419 and Breast cancer screening Z12.39 [facility] Sarmiento[address] [place] [address] AVE [id number], [place] [id number] Apr, Abdominal pain, left lower quadrant R10.32 ; Mixed hyperlipidemia E78.2 and Lumbago M54.5 [facility] [address] [place] [address] AVE [id number], [place] [id number] 17 Mar, 2015 Psoriasis 696.1 ; Hyperlipidemia 272.4 and Chronic pain 338.29 [facility] [address] [id number], [place] 351015600 Mar, [facility] Sarmiento[address] [place] [address] AVE [id number], [place] [id number] Mar, [facility] [address] [id number] [place] 099866509 Mar, Rash and nonspecific skin eruption 782.[address] [facility] [address] [id number] [place] [id number] Feb, Dermatitis 692.9 and Thoracic or lumbosacral neuritis or radiculitis, unspecified 724.4 [facility] [address] [id number] [place] 532984825 Feb, Dermatitis 692.9 and Follow-up examination V67.9 [facility] [address] [id number], [place] [id number] Jan, [facility] [address] [id number], [place] 889826010 Jan, Allergic dermatitis 692.9 [facility] [address] [id number], [place] 579212784 Jan, Rash and nonspecific skin eruption 782.1 [facility] [address] [id number], [place] [id number] Jan, [facility] [address] [id number], [place] 380885819 Jan, Dermatitis 692.9 and Environmental allergies V15.09 [facility] [address] [id number], [place] [id number] Dec, [facility] [address] [id number], [place] 632352453 Dec, [facility] [address] [id number] [place] 517346640 Dec, [facility] [address] [id number], [place] 838555625 November, [facility] [address] [id number], [place] [id number] November, Muscle spasm 728.85 [facility] [address] [facility] [id number] [place] [address] 14 Oct, 2014 [facility] [address] [id number] [place] [address] 13 Oct, 2014 [facility] [place] [facility] [address] [id number] [place] [address] 23 Sep, 2014 [facility] [address] [id number] [place] [address] 23 Sep, 2014 [facility] [place] [facility] [address] [id number] [place] [address] 20 Sep, 2014 [facility] [address] [id number] [place] [address] 20 Sep, 2014 [facility] [place] [facility] [address] [id number] [place] [address] 19 Sep, 2014 [facility] [place] [facility] [address] [id number] [place] [address] 19 Sep, 2014 [facility] [address] [id number] [place] [address] 16 Sep, 2014 [facility] [place] [facility] [address] [id number] [place] [address] 16 Sep, 2014 [facility] [address] [id number] [place] [address] Aug, [facility] [place] [facility] [address] [id number] [place] [address] Aug, [facility] [place] [facility] [address] [id number] [place] [address] 15 Jul, 2014 [facility] [place] [facility] [address] [id number] [place] [address] Jul, [facility] [place] [facility] [address] [id number] [place] [address] Jul, [facility] [place] [facility] [address] [id number] [place] [address] Jul, [facility] [place] [facility] [address] [id number] [place] [address] Jul, [facility] [place] [facility] [address] [id number] [place] [address] Jul, [facility] [place] [facility] [address] [id number] [place] [address] Jun, [facility] [place] [facility] [address] [id number] [place] [address] Jun, [facility] [place] [facility] [address] [id number] [place] [address] Jun, [facility] [place] [facility] [address] [id number] [place] [address] Jun, [facility] [place] [facility] [address] [id number] [place] [address] Jun, [facility] [place] [facility] [address] [id number] [place] [address] Jun, [facility] [place] [facility] [address] [id number] [place] [address] Jun, [facility] [place] [facility] [address] [id number] [place] [address] Jun, [facility] [place] [facility] [address] [id number] [place] [address] May, [facility] [place] [facility] [address] [id number], [place] [address] May, [facility] [place] [facility] [address] [id number] [place] [address] May, [facility] [place] [facility] [address] [id number] [place] [address] May, [facility] [place] [facility] [address] [id number] [place] [address] May, [facility] [place] [facility] [address] [id number] [place] [address] Apr, [facility] [place] [facility] [address] [id number] [place] [address] Apr, [facility] [place] [facility] [address] [id number] [place] [address] Apr, [facility] [place] [facility] [address] [id number] [place] [address] 24 Apr, 2014 [facility] [place] [facility] [address] [id number] [place] [address] Apr, [facility] [place] [facility] [address] [id number] [place] [address] Apr, [facility] [place] [facility] [address] [id number] [place] [address] Apr, [facility] [place] [facility] [address] [id number] [place] [address] Apr, [facility] [place] [facility] [address] [id number] [place] [address] Apr, [facility] [place] [facility] [address] [id number] [place] [address] 20 Apr, 2014 [facility] [place] [facility] [address] [id number] [place] [address] 17 Apr, 2014 [facility] [place] [facility] [address] [id number] [place] [address] 17 Apr, 2014 [facility] [place] [facility] [address] [id number], [place] [address] 16 Apr, 2014 [facility] [place] [facility] [address] [id number] [place] [address] 16 Apr, 2014 [facility] [place] [facility] [address] [id number] [place] [address] 15 Apr, 2014 [facility] [place] [facility] [address] [id number] [place] [address] 15 Apr, 2014 [facility] [place] [facility] [address] [id number] [place] [address] Apr, [facility] [place] [facility] [address] [id number] [place] [address] Apr, [facility] [place] [facility] [address] [id number] [place] [address] Apr, [facility] [place] [facility] [address] [id number] [place] [address] Apr, [facility] [place] [facility] [address] [id number] [place] [address] Apr, [facility] [place] [facility] [address] [id number] [place] [address] Apr, [facility] [place] [facility] [address] [id number] [place] [address] Apr, [facility] [place] [facility] [address] [id number] [place] [address] Apr, [facility] [place] [facility] [address] [id number] [place] [address] Apr, [facility] [place] [facility] [address] [id number] [place] [address] Apr, [facility] [place] [facility] [address] [id number] [place] [address] Mar, [facility] [place] [facility] [address] [id number] [place] [address] Mar, [facility] [place] [facility] [address] [id number] [place] [address] Feb, [facility] [place] [facility] [address] [id number] [place] [address] Feb, [facility] [place] [facility] [address] [id number] [place] [address] Feb, [facility] [place] [facility] [address] [id number] [place] [address] Feb, [facility] [place] [facility] [address] [id number] [place] [address] Jan, [facility] [place] [facility] [address] [id number] [place] [address] Jan, [facility] [place] [facility] [address] [id number] [place] [address] Jan, [facility] [place] [facility] [address] [id number] [place] [address] Jan, [facility] [place] [facility] [address] [id number] [place] [address] Jan, [facility] [place] [facility] [address] [id number] [place] [address] Jan, [facility] [place] [facility] [address] [id number] [place] [address] Jan, [facility] [place] [facility] [address] [id number] [place] [address] Jan, [facility] [place] [facility] [address] [id number] [place] [address] Jan, [facility] [place] [facility] [address] [id number] [place] [address] Jan, [facility] [place] [facility] [address] [id number] [place] [address] Jan, [facility] [place] [facility] [address] [id number] [place] [address] Dec, [facility] [place] [facility] [address] [id number] [place] [address] Dec, [facility] [place] [facility] [address] [id number] [place] [address] Dec, [facility] [place] [facility] [address] [id number] [place] [address] Dec, [facility] [place] [facility] [address] [id number] [place] [address] November, [facility] [address] [id number] [place] [address] November, [facility] [address] [id number] [place] [address] November, [facility] [address] [id number] [place] [address] November, [facility] [address] [id number] [place] [address] November, [facility] [address] [id number] [place] [address] November, [facility] [address] [id number] [place] [address] November, [facility] [address] [id number] [place] [address] November, [facility] [address] [id number] [place] [address] November, [facility] [address] [id number] [place] [address] November, [facility] [address] [id number] [place] [address] November, [facility] [address] [id number] [place] [address] Oct, [facility] [address] [id number] [place] [address] Oct, [facility] [place] [facility] [address] [id number] [place] [address] Oct, [facility] [place] [facility] [address] [id number] [place] [address] Oct, [facility] [address] [id number] [place] [address] Oct, [facility] [place] [facility] [address] [id number] [place] [address] 15 Oct, 2013 [facility] [place] [facility] [address] [id number] [place] [address] 28 Sep, 2013 [facility] [place] [facility] [address] [id number] [place] [address] Sep, [facility] [place] [facility] [address] [id number] [place] [address] Sep, [facility] [place] [facility] [address] [id number] [place] [address] Sep, [facility] [place] [facility] [address] [id number] [place] [address] Sep, [facility] [place] [facility] [address] [id number] [place] [address] Sep, [facility] [place] [facility] [address] [id number] [place] [address] Sep, [facility] [place] [facility] [address] [id number] [place] [address] Sep, [facility] [place] [facility] [address] [id number] [place] [address] Sep, [facility] [place] [facility] [address] [id number] [place] [address] Sep, [facility] [place] [facility] [address] [id number] [place] [address] Sep, [facility] [place] [facility] [address] [id number] [place] [address] Aug, [facility] [place] [facility] [address] [id number] [place] [address] Aug, [facility] [place] [facility] [address] [id number] [place] [address] Aug, [facility] [place] [facility] [address] [id number] [place] [address] Aug, [facility] [address] [id number] [place] [address] Jul, [facility] [place] [facility] [address] [id number] [place] [address] Jul, [facility] [place] [facility] [address] [id number] [place] [address] Jul, [facility] [place] [facility] [address] [id number] [place] [address] Jul, [facility] [place] [facility] [address] [id number] [place] [address] Jul, [facility] [place] [facility] [address] [id number] [place] [address] Jul, [facility] [place] [facility] [address] [id number] [place] [address] Jul, [facility] [place] [facility] [address] [id number] [place] [address] Jul, [facility] [place] [facility] [address] [id number] [place] [address] Jul, [facility] [place] [facility] [address] [id number] [place] [address] Jul, [facility] [place] [facility] [address] [id number] [place] [address] Jul, [facility] [place] [facility] [address] [id number], [place] [address] Jul, [facility] [place] [facility] [address] [id number] [place] [address] Jul, [facility] [place] [facility] [address] [id number] [place] [address] Jun, [facility] [place] [facility] [address] [id number] [place] [address] Jun, [facility] [place] [facility] [address] [id number] [place] [address] Jun, [facility] [address] [id number] [place] [address] Jun, [facility] [place] [facility] [address] [id number] [place] [address] Jun, [facility] [place] [facility] [address] [id number] [place] [address] Jun, [facility] [address] [id number] [place] [address] Jun, [facility] [place] [facility] [address] [id number] [place] [address] Jun, [facility] [address] [id number] [place] [address] Jun, [facility] [address] [id number] [place] [address] Jun, [facility] [address] [id number] [place] [address] Jun, [facility] [place] [facility] [address] [id number] [place] [address] Jun, [facility] [place] [facility] [address] [id number] [place] [address] Jun, [facility] [place] [facility] [address] [id number] [place] [address] Jun, [facility] [place] [facility] [address] [id number] [place] [address] Jun, [facility] [place] [facility] [address] [id number] [place] [address] Jun, [facility] [place] [facility] [address] [id number] [place] [address] Jun, [facility] [place] [facility] [address] [id number] [place] [address] Jun, [facility] [place] [facility] [address] [id number] [place] [address] Jun, [facility] [place] [facility] [address] [id number] [place] [address] Jun, [facility] [place] [facility] [address] [id number] [place] [address] Jun, [facility] [place] [facility] [address] [id number] [place] [address] Jun, [facility] [place] [facility] [address] [id number] [place] [address] Jun, [facility] [place] [facility] [address] [id number], [place] [address] May, [facility] [place] [facility] [address] [id number], [place] [address] May, [facility] [place] [facility] [address] [id number], [place] [address] Apr, [facility] [address] [id number][place] [id number] Mar, [facility] [address] [facility] [id number], [place] [address] Feb, [facility] [place] [facility] [address] [id number], [place] [address] Feb, [facility] [place] [facility] [address] [id number], [place] [address] Jan, [facility] [place] [facility] [address] [id number] [place] [address] Jan, [facility] [place] [facility] [address] [id number], [place] [address] November, [facility] [place] [facility] [address] [id number], [place] [address] November, [facility] [place] [facility] [address] [id number] [place] [address] Oct, [facility] [address] [facility] [id number] [place] [address] Oct, [facility] [address] [facility] [id number] [place] [id number] November, [facility] [address] [facility] [id number] [place] [address] May, [facility] [address] [facility] [id number], [place] [address] Feb, IMMUNIZATIONS No Known Immunizations SOCIAL HISTORY [...] anxiety, depression Medical History CT abdomen at [facility] 09-14-16 shows a ventral hernia and fatty [...] 2010 Hospitalization History past surgeries Hospitalization History [facility] [place] back pain /Hernia 10/2018
--- OUTSIDE RECORDS SUMMARY | 2019-02-08 10:28 | XMS REPORT ---
Author Author SHA RÍOS [facility] Address [address] [place] [address] Care Team Providers Care Kitman Name Role Phone SHA RÍOS Unavailable PROBLEMS Type Condition ICD9-CM Code ELY31-IF Code Onset Dates Condition Status SNOMED Code Problem Fatty liver disease, nonalcoholic K76.0 Active 876726001 Problem Psoriasis L40.9 Active 8601784 Problem Hyperlipidemia E78.5 Active 84112814 Problem Metabolic syndrome X E88.81 Active 539414789 Problem Psoriasis vulgaris L40.0 Active 289047387 Problem Elevated serum GGT level R74.8 Active 613280505 Problem Dysthymia F34.1 Active 00124166 Problem Urinary frequency R35.0 Active 013119410 Problem Heartburn R12 Active 06206195 Problem Substance abuse F19.10 Active 43782251 Problem Emotional lability R45.86 Active 25556973 Problem Essential hypertension with goal blood pressure less than 130\/80 I10 Active 73214386 Problem Pulmonary emphysema, unspecified emphysema type J43.9 Active 29840868 Problem Breast cancer screening Z12.39 Active 449698498 Problem Weight loss R63.4 Active 413015245 Problem Colonoscopy refused Z53.20 Active 229690851 Problem Mixed hyperlipidemia E78.2 Active 718710262 Problem Lumbago with sciatica, right side M54.41 Active 993221989383295 Problem Lumbago with sciatica, left side M54.42 Active 085419384 Problem Dental caries K02.9 Active 10947691 Problem High risk medication use Z79.899 Active 018082512 Problem Other chronic pain G89.29 Active 70305246 Problem Hematuria, unspecified type R31.9 Active 56213979 Problem Serum calcium elevated E83.52 Active 37456851 Problem Vitamin D deficiency E55.9 Active 44699578 Problem Epigastric abdominal pain R10.13 Active 73433074 Problem Gynecologic exam normal Z01.419 Active 269639390 Problem Flexural atopic dermatitis L20.89 Active 622531761 Problem 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 Active 854798391 Problem Colon cancer screening Z12.11 Active 898974757 Problem Hypomagnesemia E83.42 Active 488222007 Problem Atopic dermatitis L20.9 Active 14483194 Problem Hypertension I10 Active 72627583 Problem Hypoglycemia E16.2 Active 208517496 ALLERGIES No Information ENCOUNTERS Encounter Location Date Diagnosis [facility] [address] [facility] [id number] [place] [address] November, [facility] [address] [id number][place] [address] November, Lumbago M54.5 [facility] [address] [id number], [place] [address]88898679 November, Leg pain, bilateral M79.604 [facility] [address] [id number], [place] 474149742 November, Lumbago M54.5 ; Vision disturbance H53.9 and Hyperlipidemia E78.5 [facility] [address] [address] [id number] [place] [id number] November, Elevated AFP R77.2 [facility] [address] [id number], [place] [address]164[address] Oct, Flexural atopic dermatitis L20.89 [facility] [address] [id number], [place] 998187266 Oct, High risk medication use Z79.899 [facility] [address] [id number] [place] [id number] Aug, [facility] [address] [id number], [place] [address] Jul, [facility] [address] [id number], [place] 442029[address] Jul, Serum calcium elevated E83.52 and Vitamin D deficiency E55.9 [facility] [address] [id number], [place] [address] Jul, [facility] [address] [id number], [place] [address] Jul, Hypertension I10 ; Hypoglycemia E16.2 ; Colon cancer screening Z12.11 and Left upper quadrant pain R10.12 [facility] [address] [id number], [place] [address]89[address] Jul, Atopic dermatitis L20.9 [facility] [address] [id number], [place] [address]54[address] May, Serum calcium elevated E83.52 ; Fatty liver disease, nonalcoholic K76.0 ; Hypomagnesemia E83.42 ; Vitamin D deficiency E55.9 and Elevated liver enzymes R74.8 [facility] [id number], [place] [address] Apr, High risk medication use Z79.899 ; Dysthymia F34.1 ; Fatty liver disease, nonalcoholic K76.0 ; Serum calcium elevated E83.52 and Viral gastroenteritis A08.4 [facility] [id number], [place] [address]706 Feb, [facility] [address] [id number], [place] 1984[address] November, Serum calcium elevated E83.52 and Elevated serum GGT level R74.8 [facility] [id number], [place] [address] November, Fatty liver disease, nonalcoholic K76.0 [facility] [address] [id number], [place] [address] November, High risk medication use Z79.899 ; Hematuria, unspecified type R31.9 ; Dental caries K02.9 ; Urinary frequency R35.0 and Substance abuse F19.10 [facility] [address] [place] [address] AVE [id number], [place] [id number] Sep, [facility] [id number], [place] [address]86[address] Aug, [facility] [address] [id number] [place] [address] Aug, [facility] [address] [id number], [place] 930142712 Jul, [facility] [address] [id number], [place] 666239159 Jun, [facility] [address] [id number], [place] 14[address]37[address] Jun, Hematuria, unspecified type R31.[address] [facility] [address] [id number], [place] 833985199 May, Lumbago with sciatica, left side M54.42 and Hematuria, unspecified type R31.[address] [facility] [address] [id number], [place] 631526596 May, Hematuria, unspecified type R31.[address] [facility] [address] [id number], [place] 418423178 Apr, High risk medication use Z79.899 ; Lumbago with sciatica, left side M54.42 ; Lumbago with sciatica, right side M54.41 ; Other chronic pain G89.29 ; Emotional lability R45.86 and Colonoscopy refused Z53.[address] [facility] [address] [id number], [place] [address] Feb, [facility] [address] [id number], [place] 177599855 Feb, [facility] [address] [facility] [id number] [place] [address] Jan, [facility] [address] [id number], [place] 087027057 Jan, Psoriasis vulgaris L40.[address] [facility] [address] [id number], [place] 883985[address] Jan, High risk medication use Z79.[address] [facility] [address] [id number] [place] [address] Dec, Psoriasis vulgaris L40.[address] [facility] [address] [id number] [place] [address] Oct, Mixed hyperlipidemia E78.2 and High risk medication use Z79.[address] [facility] [address] [id number] [place] [address] Oct, [facility] [address] [id number] [place] [address] Oct, [facility] [address] [id number] [place] [address] Oct, Hyperlipidemia E78.5 and Weight loss R63.[address] [facility] [address] [id number], [place] 281872885 Oct, Gynecologic exam normal Z01.419 ; Breast cancer screening Z12.39 ; Weight loss R63.4 and Colon cancer screening Z12.[address] [facility] [address] [id number] [place] [address] Jul, [facility] [address] [id number], [place] 175014015 Jul, High risk medication use Z79.[address] [facility] [address] [id number], [place] 047615726 Jul, Metabolic syndrome X E88.81 ; Elevated serum GGT level R74.8 ; Dysthymia F34.1 and 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 [facility] [address] [id number] [place] 934682369 Jun, [facility] [address] [id number] [place] [address] May, [facility] [address] [id number] [place] [address] May, [facility] [address] [id number] [place] 6597[address] May, High risk medication use Z79.[address] [facility] [address] [id number] [place] [address] May, [facility] [address] [id number] [place] [address]90745 May, Psoriasis vulgaris L40.0 and Other answering service agent (current) drug therapy Z79.[address] [facility] [address] [id number] [place] [address] Mar, Hyperlipidemia E78.[address] [facility] [address] [id number] [place] 59[address] Mar, [facility] [address] [id number] [place] 94[address] Mar, [facility] [address] [id number] [place] 226345349 Mar, Fatty liver disease, nonalcoholic K76.0 and Hyperlipidemia E78.[address] [facility] [address] [id number] [place] [address] Mar, [facility] [address] [id number], [place] 554889795 Mar, Fatty liver disease, nonalcoholic K76.0 ; Psoriasis L40.9 and Hyperlipidemia E78.[address] [facility] [address] [id number] [place] 4[address] Mar, [facility] [address] [facility] [id number], [place] [address]852384 Feb, [facility] [address] [id number] [place] 16332[address]11 Feb, [facility] [address] [id number] [place] 536521688 Jan, [facility] [address] [id number] [place] [address] Dec, [facility] [address] [id number] [place] 768[address] Dec, [facility] [address] [id number] [address] November, [facility] [address] [id number] [place] [address] November, [facility] [address] [id number], [place] 825964274 Oct, [facility] [address] [id number], [place] 849833354 Oct, Fatty liver disease, nonalcoholic K76.0 and Encounter for immunization Z23 [facility] [address]00565100[place] [address] Oct, [facility] [address] [address] [id number], [place] 255365012 Sep, Fatty liver disease, nonalcoholic K76.0 [facility] [address] [id number], [place] 474396503 Sep, Fatty liver disease, nonalcoholic K76.0 ; High risk medication use Z79.899 ; Emotional lability R45.86 ; Hyperlipidemia E78.5 and Essential hypertension with goal blood pressure less than 130\/80 I10 [facility] [address] [facility] [id number] [place] [address] Sep, [facility] [address] [id number], [place] 063787911 Aug, Mixed hyperlipidemia E78.2 and Heartburn R12 [facility] [address] [address] [id number], [place] 375158238 Aug, High risk medication use Z79.899 ; Emotional lability R45.86 ; Pulmonary emphysema, unspecified emphysema type J43.9 and Heartburn R12 [facility] [address] [id number], [place] 156215522 Jul, [facility] [address] [id number], [place] 840062803 Jul, [facility] [address] [facility] [address] [id number], [place] 560100944 Jun, [facility] [address] [address] [place] [address] AVE [id number], [place] 394166123 May, Right upper quadrant abdominal pain R10.11 and Fatty liver K76.0 [facility] [address] [place] [address] [id number] [place] [address] [id number] Apr, Elevated AFP R77.2 ; Fatty liver K76.0 ; Unspecified cirrhosis of liver K74.60 ; High risk medication use Z79.899 ; Anhedonia R45.84 and Psoriasis L40.9 [facility] [address] [place] [address] AVE [id number], [place] 057857265 Apr, [facility] [address] [place] [address] AVE [id number], [place] [id number] Apr, Elevated liver enzymes R74.8 [facility] [address] [place] [address] AVE [id number], [place] 626233004 Apr, Abdominal pain, left lower quadrant R10.32 ; Mixed hyperlipidemia E78.2 and Hyperlipidemia 272.4 [facility] [address] [id number], [place] 105890194 09 Apr, 2015 Encounter for routine gynecological examination Z01.419 and Breast cancer screening Z12.39 [facility] [address] [place] [address] AVE [id number], [place] 955374858 Apr, Abdominal pain, left lower quadrant R10.32 ; Mixed hyperlipidemia E78.2 and Lumbago M54.5 [facility] [address] [place] [address] AVE [id number], [place] [id number] 17 Mar, 2015 Psoriasis 696.1 ; Hyperlipidemia 272.4 and Chronic pain 338.29 [facility] [address] [place] [address] AVE [id number], [place] [id number] 15 Mar, 2015 [facility] [address] [place] [address] AVE [id number], [place] 435772613 Mar, [facility] [address] [id number] [place] [id number] Mar, Rash and nonspecific skin eruption 782.[address] [facility] [address] [id number] [place] 846611905 Feb, Dermatitis 692.9 and Thoracic or lumbosacral neuritis or radiculitis, unspecified 724.[address] [facility] [address] [id number] [place] 500720134 Feb, Dermatitis 692.9 and Follow-up examination V67.[address] [facility] [address] [id number] [place] [id number] Jan, [facility] [address] [id number], [place] 101665415 Jan, Allergic dermatitis 692.[address] [facility] [address] [id number], [place] [id number] Jan, Rash and nonspecific skin eruption 782.1 [facility] [address] [id number] [place] 888026426 Jan, [facility] [address] [id number], [place] 456329110 Jan, Dermatitis 692.9 and Environmental allergies V15.09 [facility] [address] [id number] [place] [id number] Dec, [facility] [address] [id number] [place] 148159589 Dec, [facility] [address] [id number] [place] [id number] Dec, [facility] [address] [id number], [place] 658241480 November, [facility] [address] [id number], [place] 618672842 November, Muscle spasm 728.85 [facility] [address] [facility] [id number] [place] [address] 14 Oct, 2014 [facility] [place] [facility] [address] [id number] [place] [address] 13 Oct, 2014 [facility] [place] [facility] [address] [id number] [place] [address] 23 Sep, 2014 [facility] [place] [facility] [address] [id number] [place] [address] 23 Sep, 2014 [facility] [place] [facility] [address] [id number] [place] [address] 20 Sep, 2014 [facility] [place] [facility] [address] [id number] [place] [address] 20 Sep, 2014 [facility] [place] [facility] [address] [id number] [place] [address] 19 Sep, 2014 [facility] [place] [facility] [address] [id number] [place] [address] 19 Sep, 2014 [facility] [place] [facility] [address] [id number] [place] [address] 16 Sep, 2014 [facility] [place] [facility] [address] [id number] [place] [address] 16 Sep, 2014 [facility] [place] [facility] [address] [id number] [place] [address] 12 Aug, 2014 [facility] [place] [facility] [address] [id number] [place] [address] 12 Aug, 2014 [facility] [place] [facility] [address] [id number] [place] [address] 15 Jul, 2014 [facility] [place] [facility] [address] [id number] [place] [address] 15 Jul, 2014 [facility] [place] [facility] [address] [id number] [place] [address] 13 Jul, 2014 [facility] [place] [facility] [address] [id number] [place] [address] Jul, [facility] [place] [facility] [address] [id number] [place] [address] Jul, [facility] [place] [facility] [address] [id number] [place] [address] Jul, [facility] [place] [facility] [address] [id number] [place] [address] Jun, [facility] [place] [facility] [address] [id number] [place] [address] Jun, [facility] [place] [facility] [address] [id number] [place] [address] Jun, [facility] [place] [facility] [address] [id number] [place] [address] Jun, [facility] [place] [facility] [address] [id number] [place] [address] Jun, [facility] [place] [facility] [address] [id number] [place] [address] Jun, [facility] [place] [facility] [address] [id number] [place] [address] Jun, [facility] [place] [facility] [address] [id number] [place] [address] Jun, [facility] [place] [facility] [address] [id number] [address] May, [facility] [place] [facility] [address] [id number] [place] [address] May, [facility] [place] [facility] [address] [id number] [place] [address] May, [facility] [place] [facility] [address] [id number] [place] [address] May, [facility] [place] [facility] [address] [id number] [place] [address] May, [facility] [place] [facility] [address] [id number] [place] [address] Apr, [facility] [place] [facility] [address] [id number] [place] [address] Apr, [facility] [place] [facility] [address] [id number] [place] [address] Apr, [facility] [place] [facility] [address] [id number] [place] [address] Apr, [facility] [place] [facility] [address] [id number] [place] [address] Apr, [facility] [place] [facility] [address] [id number] [place] [address] Apr, [facility] [place] [facility] [address] [id number] [place] [address] Apr, [facility] [place] [facility] [address] [id number] [place] [address] Apr, [facility] [place] [facility] [address] [id number] [place] [address] Apr, [facility] [place] [facility] [address] [id number] [place] [address] 20 Apr, 2014 [facility] [place] [facility] [address] [id number] [place] [address] Apr, [facility] [place] [facility] [address] [id number] [place] [address] 17 Apr, 2014 [facility] [place] [facility] [address] [id number] [place] [address] 16 Apr, 2014 [facility] [place] [facility] [address] [id number] [place] [address] 16 Apr, 2014 [facility] [place] [facility] [address] [id number] [place] [address] 15 Apr, 2014 [facility] [place] [facility] [address] [id number] [place] [address] 15 Apr, 2014 [facility] [place] [facility] [address] [id number] [place] [address] Apr, [facility] [place] [facility] [address] [id number] [place] [address] Apr, [facility] [place] [facility] [address] [id number] [place] [address] Apr, [facility] [place] [facility] [address] [id number] [place] [address] Apr, [facility] [place] [facility] [address] [id number] [place] [address] Apr, [facility] [place] [facility] [address] [id number] [place] [address] Apr, [facility] [place] [facility] [address] [id number] [place] [address] Apr, [facility] [place] [facility] [address] [id number] [place] [address] Apr, [facility] [place] [facility] [address] [id number] [place] [address] Apr, [facility] [place] [facility] [address] [id number] [place] [address] Apr, [facility] [place] [facility] [address] [id number] [place] [address] Mar, [facility] [place] [facility] [address] [id number] [place] [address] Mar, [facility] [place] [facility] [address] [id number] [place] [address] Feb, [facility] [place] [facility] [address] [id number] [place] [address] Feb, [facility] [place] [facility] [address] [id number] [place] [address] Feb, [facility] [place] [facility] [address] [id number] [place] [address] Feb, [facility] [place] [facility] [address] [id number] [place] [address] Jan, [facility] [place] [facility] [address] [id number] [place] [address] Jan, [facility] [place] [facility] [address] [id number] [place] [address] Jan, [facility] [place] [facility] [address] [id number] [place] [address] Jan, [facility] [place] [facility] [address] [id number] [place] [address] Jan, [facility] [place] [facility] [address] [id number] [place] [address] Jan, [facility] [place] [facility] [address] [id number] [place] [address] Jan, [facility] [place] [facility] [address] [id number] [place] [address] Jan, [facility] [place] [facility] [address] [id number] [place] [address] Jan, [facility] [place] [facility] [address] [id number] [place] [address] Jan, [facility] [place] [facility] [address] [id number] [place] [address] Jan, [facility] [place] [facility] [address] [id number] [place] [address] Dec, [facility] [place] [facility] [address] [id number] [place] [address] Dec, [facility] [place] [facility] [address] [id number] [place] [address] Dec, [facility] [place] [facility] [address] [id number] [place] [address] Dec, [facility] [place] [facility] [address] [id number] [place] [address] November, [facility] [address] [id number] [place] [address] November, [facility] [address] [id number] [place] [address] November, [facility] [address] [id number] [place] [address] November, [facility] [address] [id number] [place] [address] November, [facility] [address] [id number] [place] [address] November, [facility] [address] [id number] [place] [address] November, [facility] [address] [id number] [place] [address] November, [facility] [address] [id number] [place] [address] November, [facility] [address] [id number] [place] [address] November, [facility] [address] [id number] [place] [address] November, [facility] [address] [id number] [place] [address] Oct, [facility] [address] [id number] [place] [address] Oct, [facility] [place] [facility] [address] [id number] [place] [address] Oct, [facility] [place] [facility] [address] [id number] [place] [address] Oct, [facility] [address] [id number] [place] [address] Oct, [facility] [place] [facility] [address] [id number] [place] [address] 15 Oct, 2013 [facility] [place] [facility] [address] [id number] [place] [address] Sep, [facility] [place] [facility] [address] [id number] [place] [address] Sep, [facility] [place] [facility] [address] [id number] [place] [address] Sep, [facility] [place] [facility] [address] [id number] [place] [address] Sep, [facility] [place] [facility] [address] [id number] [place] [address] Sep, [facility] [place] [facility] [address] [id number] [place] [address] Sep, [facility] [place] [facility] [address] [id number] [place] [address] Sep, [facility] [place] [facility] [address] [id number] [place] [address] Sep, [facility] [place] [facility] [address] [id number] [place] [id number] Sep, [facility] [place] [facility] [address] [id number] [place] [address] Sep, [facility] [place] [facility] [address] [id number] [place] [address] Sep, [facility] [place] [facility] [address] [id number] [place] [address] Aug, [facility] [place] [facility] [address] [id number] [place] [address] Aug, [facility] [place] [facility] [address] [id number] [place] [address] Aug, [facility] [place] [facility] [address] [id number] [place] [address] Aug, [facility] [place] [facility] [address] [id number] [place] [address] Jul, [facility] [place] [facility] [address] [id number] [place] [address] Jul, [facility] [place] [facility] [address] [id number] [place] [address] Jul, [facility] [place] [facility] [address] [id number] [place] [address] Jul, [facility] [place] [facility] [address] [id number] [place] [address] Jul, [facility] [place] [facility] [address] [id number] [place] [address] Jul, [facility] [place] [facility] [address] [id number] [place] [address] Jul, [facility] [place] [facility] [address] [id number] [place] [address] Jul, [facility] [place] [facility] [address] [id number] [place] [address] Jul, [facility] [place] [facility] [address] [id number] [place] [address] Jul, [facility] [place] [facility] [address] [id number] [place] [address] Jul, [facility] [place] [facility] [address] [id number] [place] [address] Jul, [facility] [place] [facility] [address] [id number] [place] [address] Jul, [facility] [place] [facility] [address] [id number] [place] [address] Jun, [facility] [place] [facility] [address] [id number] [place] [address] Jun, [facility] [place] [facility] [address] [id number] [place] [address] Jun, [facility] [address] [id number] [place] [address] Jun, [facility] [address] [id number] [place] [address] Jun, [facility] [address] [id number] [place] [address] Jun, [facility] [address] [id number] [place] [address] Jun, [facility] [address] [id number] [place] [address] Jun, [facility] [address] [id number] [place] [address] Jun, [facility] [address] [id number] [place] [address] Jun, [facility] [address] [id number] [place] [address] Jun, [facility] [address] [id number] [place] [address] Jun, [facility] [address] [id number] [place] [address] Jun, [facility] [address] [id number] [place] [address] Jun, [facility] [address] [id number] [place] [address] Jun, [facility] [place] [facility] [address] [id number] [place] [address] Jun, [facility] [address] [id number] [place] [address] Jun, [facility] [place] [facility] [address] [id number] [place] [address] Jun, [facility] [address] [id number] [place] [address] Jun, [facility] [address] [id number] [place] [address] Jun, [facility] [place] [facility] [address] [id number] [place] [address] Jun, [facility] [place] [facility] [address] [id number] [place] [address] Jun, [facility] [place] [facility] [address] [id number] [place] [address] Jun, [facility] [place] [facility] [address] [id number] [place] [address] May, [facility] [address] [id number] [place] [address] May, [facility] [place] [facility] [address] [id number] [place] [address] Apr, [facility] [address] [id number] [id number] Mar, [facility] [address] [facility] [id number] [place] [address] Feb, [facility] [place] [facility] [address] [id number] [place] [address] Feb, [facility] [place] [facility] [address] [id number] [place] [address] Jan, [facility] [place] [facility] [address] [id number] [place] [address] Jan, [facility] [place] [facility] [address] [id number] [place] [address] November, [facility] [place] [facility] [address] [id number] [place] [address] November, [facility] [place] [facility] [address] [facility] [id number] [place] [address] Oct, [facility] [address] [facility] [id number] [place] [address] Oct, [facility] [address] [facility] [id number] [place] [id number] November, [facility] [address] [facility] [id number] [place] [address] May, [facility] [address] [facility] [id number] [place] [address] Feb, IMMUNIZATIONS No Known Immunizations SOCIAL HISTORY [...] anxiety, depression Medical History CT abdomen at [facility] 09-14-16 shows a ventral hernia [...] 2010 Hospitalization History past surgeries Hospitalization History [facility] [place]Hernia 10/2018
--- OUTSIDE RECORDS SUMMARY | 2019-02-08 10:29 | XMS REPORT ---
Author Author Migration, Doctor Organization [facility] Address Unknown Phone Unavailable Care Team Providers Care Lighting Director Name Role Phone Migration, Doctor Unavailable Unavailable PROBLEMS Type Condition ICD9-CM Code RAB84-KM Code Onset Dates Condition Status SNOMED Code Problem Fatty liver disease, nonalcoholic K76.0 Active 254050722 Problem Psoriasis L40.9 Active 1945427 Problem Hyperlipidemia E78.5 Active 33675576 Problem Metabolic syndrome X E88.81 Active 837023916 Problem Psoriasis vulgaris L40.0 Active 737014327 Problem Elevated serum GGT level R74.8 Active 501687218 Problem Dysthymia F34.1 Active 97357124 Problem Urinary frequency R35.0 Active 766439269 Problem Heartburn R12 Active 25084342 Problem Substance abuse F19.10 Active 89258755 Problem Emotional lability R45.86 Active 41706980 Problem Essential hypertension with goal blood pressure less than 130\/80 I10 Active 78380675 Problem Pulmonary emphysema, unspecified emphysema type J43.9 Active 82257419 Problem Breast cancer screening Z12.39 Active 164918514 Problem Weight loss R63.4 Active 700897619 Problem Colonoscopy refused Z53.20 Active 962224592 Problem Mixed hyperlipidemia E78.2 Active 620394065 Problem Lumbago with sciatica, right side M54.41 Active 129104468004266 Problem Lumbago with sciatica, left side M54.42 Active 538470466 Problem Dental caries K02.9 Active 45034027 Problem High risk medication use Z79.899 Active 431122309 Problem Other chronic pain G89.29 Active 24607787 Problem Hematuria, unspecified type R31.9 Active 96819468 Problem Serum calcium elevated E83.52 Active 97398884 Problem Vitamin D deficiency E55.9 Active 24742738 Problem Epigastric abdominal pain R10.13 Active 26877149 Problem Gynecologic exam normal Z01.419 Active 162149152 Problem Flexural atopic dermatitis L20.89 Active 454252297 Problem 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 Active 265021155 Problem Colon cancer screening Z12.11 Active 963913074 Problem Hypomagnesemia E83.42 Active 243781104 Problem Atopic dermatitis L20.9 Active 55568848 Problem Hypertension I10 Active 41686463 Problem Hypoglycemia E16.2 Active 644548974 ALLERGIES Substance Reaction Event Type Date Status Codeine Unknown Drug Allergy Oct, Active ENCOUNTERS Encounter Location Date Diagnosis [facility] [address] [facility] [id number] [place] [address] November, [facility] [address] [id number] [place] [address] November, Lumbago M54.5 [facility] [address] [address] [id number], [place] 849949471 November, Leg pain, bilateral M79.[address] [facility] [address] [id number], [place] 739265277 November, Lumbago M54.5 ; Vision disturbance H53.9 and Hyperlipidemia E78.5 [facility] [address] [id number][place] [id number] November, Elevated AFP R77.2 [facility] [address] [address] [id number], [place] 679150027 Oct, Flexural atopic dermatitis L20.89 [facility] [address] [id number], [place] 419368534 Oct, High risk medication use Z79.899 [facility] [address] [id number], [place] [address]36839[address] Aug, [facility] [address] [id number], [place] 833023[address] Jul, [facility] [address] [id number], [place] 024349973 Jul, Serum calcium elevated E83.52 and Vitamin D deficiency E55.9 [facility] [address] [address] [id number], [place] 467005006 Jul, [facility] [address] [place] [address] AVE [id number], [place] 175103022 Jul, Hypertension I10 ; Hypoglycemia E16.2 ; Colon cancer screening Z12.11 and Left upper quadrant pain R10.12 [facility] [employer] [place] [address] AVE [id number], [place] 968304601 Jul, Atopic dermatitis L20.9 [facility] [id number], [place] [address]187737[address] May, Serum calcium elevated E83.52 ; Fatty liver disease, nonalcoholic K76.0 ; Hypomagnesemia E83.42 ; Vitamin D deficiency E55.9 and Elevated liver enzymes R74.8 [facility] [id number], [place] 477667[address] Apr, High risk medication use Z79.899 ; Dysthymia F34.1 ; Fatty liver disease, nonalcoholic K76.0 ; Serum calcium elevated E83.52 and Viral gastroenteritis A08.4 [facility] [id number], [place] 160452738 Feb, [facility] [address] [place] [address] AVE [id number], [place] 045873256 November, Serum calcium elevated E83.52 and Elevated serum GGT level R74.8 [facility] [employer] [place] [address] AV [id number], [place] 964302003 November, Fatty liver disease, nonalcoholic K76.0 [facility] [id number], [place] 742222661 November, High risk medication use Z79.899 ; Hematuria, unspecified type R31.9 ; Dental caries K02.9 ; Urinary frequency R35.0 and Substance abuse F19.10 [facility] [employer] [place] [address] AVE [id number], [place] 144317771 Sep, [facility] [employer] [place] [address] AV [id number], [place] 322959872 Aug, [facility] [address] [id number], [place] 871873128 Aug, [facility] [address] [id number], [place] 161401181 Jul, [facility] [address] [id number], [place] 716143111 Jun, [facility] [address] [id number], [place] 311529109 Jun, Hematuria, unspecified type R31.[address] [facility] [address] [id number], [place] 807708750 May, Lumbago with sciatica, left side M54.42 and Hematuria, unspecified type R31.[address] [facility] [address] [id number], [place] 566943929 May, Hematuria, unspecified type R31.[address] [facility] [address] [id number], [place] 585638314 Apr, High risk medication use Z79.899 ; Lumbago with sciatica, left side M54.42 ; Lumbago with sciatica, right side M54.41 ; Other chronic pain G89.29 ; Emotional lability R45.86 and Colonoscopy refused Z53.[address] [facility] [address] [id number], [place] 625048724 Feb, [facility] [address] [id number], [place] 998194762 Feb, [facility] [place] [address] [facility] [id number], [place] [address] Jan, [facility] [address] [id number], [place] 987264385 Jan, Psoriasis vulgaris L40.[address] [facility] [address] [id number], [place] 432110822 Jan, High risk medication use Z79.[address] [facility] [address] [id number] [place] [address] Dec, Psoriasis vulgaris L40.[address] [facility] [address] [id number] [place] [address] Oct, Mixed hyperlipidemia E78.2 and High risk medication use Z79.[address] [facility] [address] [id number] [place] 616[address]58 Oct, [facility] [address] [id number] [place] 800048675 Oct, [facility] [address] [id number] [place] 795932903 Oct, Hyperlipidemia E78.5 and Weight loss R63.[address] [facility] [address] [id number], [place] 514060831 Oct, Gynecologic exam normal Z01.419 ; Breast cancer screening Z12.39 ; Weight loss R63.4 and Colon cancer screening Z12.[address] [facility] [address] [id number], [place] 545157291 Jul, [facility] [address] [id number], [place] 951582260 Jul, High risk medication use Z79.[address] [facility] [address] [id number], [place] 422117855 Jul, Metabolic syndrome X E88.81 ; Elevated serum GGT level R74.8 ; Dysthymia F34.1 and 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 [facility] [address] [id number], [place] 757841396 Jun, [facility] [address] [id number] [place] 349484943 May, [facility] [address] [id number] [place] 312717838 May, [facility] [address] [address] [id number], [place] 494630119 May, High risk medication use Z79.[address] [facility] [address] [id number] [place] [address] May, [facility] [address] [address] [id number] [place] 354449074 May, Psoriasis vulgaris L40.0 and Other assisted (current) drug therapy Z79.[address] [facility] [address] [id number] [place] 523750[address] Mar, Hyperlipidemia E78.[address] [facility] [address] [id number] [place] 238211911 Mar, [facility] [address] [id number] [place] 801857652 Mar, [facility] [address] [address] [id number], [place] 456175015 Mar, Fatty liver disease, nonalcoholic K76.0 and Hyperlipidemia E78.[address] [facility] [address] [id number] [place] 295533840 Mar, [facility] [address] [id number], [place] 607030012 Mar, Fatty liver disease, nonalcoholic K76.0 ; Psoriasis L40.9 and Hyperlipidemia E78.[address] [facility] [address] [id number], [place] 013386155 Mar, [facility] [address] [id number] [place] 77[address]180[address] Feb, [facility] [address] [id number] [place] 361864850 Feb, [facility] [address] [id number] [place] 482608693 Jan, [facility] [address] [address] [id number] [place] 995952237 Dec, [facility] [address] [address] [id number] [place] 700635732 Dec, [facility] [address] [facility] [id number], [place] [address] November, [facility] [address] [address] [id number], [place] [id number] November, [facility] [address] [id number], [place] 791180549 Oct, [facility] [address] [id number], [place] 774819205 Oct, Fatty liver disease, nonalcoholic K76.0 and Encounter for immunization Z23 [facility] [address] [facility] [id number], [place] [address] Oct, [facility] [address] [id number], [place] 562519626 Sep, Fatty liver disease, nonalcoholic K76.0 [facility] [address] [address] [id number], [place] 075073128 Sep, Fatty liver disease, nonalcoholic K76.0 ; High risk medication use Z79.899 ; Emotional lability R45.86 ; Hyperlipidemia E78.5 and Essential hypertension with goal blood pressure less than 130\/80 I10 [facility] [address] [facility] [id number][place] [address] Sep, [facility] [address] [id number], [place] 765322227 Aug, Mixed hyperlipidemia E78.2 and Heartburn R12 [facility] [address] [id number], [place] 532228972 Aug, High risk medication use Z79.899 ; Emotional lability R45.86 ; Pulmonary emphysema, unspecified emphysema type J43.9 and Heartburn R12 [facility] [address] [id number], [place] 834053977 Jul, [facility] [address] [id number], [place] 831292234 Jul, [facility] [address] [id number], [place] [id number] Jun, [facility] [address] [address] [id number], [place] 832625379 May, Right upper quadrant abdominal pain R10.11 and Fatty liver K76.0 [facility] [address] [id number], [place] 141025419 Apr, Elevated AFP R77.2 ; Fatty liver K76.0 ; Unspecified cirrhosis of liver K74.60 ; High risk medication use Z79.899 ; Anhedonia R45.84 and Psoriasis L40.9 [facility] [address] [place] [address] AVE [id number], [place] [id number] Apr, [facility] [employer] [place] [address] AVE [id number], [place] 531860352 Apr, Elevated liver enzymes R74.8 [facility] [address] [place] [address] AVE [id number], [place] 577659560 Apr, Abdominal pain, left lower quadrant R10.32 ; Mixed hyperlipidemia E78.2 and Hyperlipidemia 272.4 [facility] [address] [place] [address] AVE [id number], [place] 659412458 Apr, Encounter for routine gynecological examination Z01.419 and Breast cancer screening Z12.39 [facility] [address] [place] [address] AVE [id number], [place] 812292421 Apr, Abdominal pain, left lower quadrant R10.32 ; Mixed hyperlipidemia E78.2 and Lumbago M54.5 [facility] [address] [place] [address] AVE [id number], [place] 962411513 Mar, Psoriasis 696.1 ; Hyperlipidemia 272.4 and Chronic pain 338.29 [facility] [address] [address] [id number], [place] [id number] Mar, [facility] [address] [place] [address] AVE [id number], [place] 849791684 Mar, [facility] [address] [id number] [place] 435456910 Mar, Rash and nonspecific skin eruption 782.[address] [facility] [address] [id number], [place] 109542128 Feb, Dermatitis 692.9 and Thoracic or lumbosacral neuritis or radiculitis, unspecified 724.[address] [facility] [address] [id number], [place] 381274396 Feb, Dermatitis 692.9 and Follow-up examination V67.[address] [facility] [address] [id number], [place] [id number] Jan, [facility] [address] [id number], [place] 406697449 Jan, Allergic dermatitis 692.[address] [facility] [address] [id number], [place] 361765275 Jan, Rash and nonspecific skin eruption 782.[address] [facility] [address] [id number], [place] 590546744 Jan, [facility] [address] [id number], [place] 787381446 Jan, Dermatitis 692.9 and Environmental allergies V15.[address] [facility] [address] [id number], [place] 357806391 Dec, [facility] [address] [id number], [place] 482208547 Dec, [facility] [address] [id number], [place] 348521362 Dec, [facility] [address] [id number], [place] 633373836 November, [facility] [address] [id number], [place] 581241701 November, Muscle spasm 728.85 [facility] [place] [address] [facility] [id number], [place] [address] 14 Oct, 2014 [facility] [place] [facility] [address] [id number] [place] [address] 13 Oct, 2014 [facility] [place] [facility] [address] [id number] [place] [address] 23 Sep, 2014 [facility] [place] [facility] [address] [id number] [place] [address] 23 Sep, 2014 [facility] [place] [facility] [address] [id number] [place] [address] 20 Sep, 2014 [facility] [place] [facility] [address] [id number] [place] [address] 20 Sep, 2014 [facility] [place] [facility] [address] [id number] [place] [address] 19 Sep, 2014 [facility] [place] [facility] [address] [id number] [place] [address] 19 Sep, 2014 [facility] [place] [facility] [address] [id number] [place] [address] 16 Sep, 2014 [facility] [place] [facility] [address] [id number] [place] [address] 16 Sep, 2014 [facility] [place] [facility] [address] [id number] [place] [address] Aug, [facility] [place] [facility] [address] [id number] [place] [address] Aug, [facility] [place] [facility] [address] [id number] [place] [address] 15 Jul, 2014 [facility] [place] [facility] [address] [id number] [place] [address] 15 Jul, 2014 [facility] [place] [facility] [address] [id number] [place] [address] Jul, [facility] [place] [facility] [address] [id number] [place] [address] Jul, [facility] [place] [facility] [address] [id number] [place] [address] Jul, [facility] [address] [id number] [place] [address] Jul, [facility] [place] [facility] [address] [id number] [place] [address] Jun, [facility] [address] [id number] [place] [address] Jun, [facility] [place] [facility] [address] [id number] [place] [address] Jun, [facility] [place] [facility] [address] [id number] [place] [address] Jun, [facility] [place] [facility] [address] [id number] [place] [address] Jun, [facility] [place] [facility] [address] [id number] [place] [address] Jun, [facility] [address] [id number] [place] [address] Jun, [facility] [place] [facility] [address] [id number] [place] [address] Jun, [facility] [address] [id number] [place] [address] May, [facility] [place] [facility] [address] [id number] [place] [address] May, [facility] [place] [facility] [address] [id number] [place] [address] May, [facility] [place] [facility] [address] [id number] [place] [address] May, [facility] [place] [facility] [address] [id number] [place] [address] May, [facility] [place] [facility] [address] [id number] [place] [address] Apr, [facility] [place] [facility] [address] [id number] [place] [address] Apr, [facility] [place] [facility] [address] [id number] [place] [address] Apr, [facility] [place] [facility] [address] [id number] [place] [address] Apr, [facility] [place] [facility] [address] [id number] [place] [address] Apr, [facility] [place] [facility] [address] [id number] [place] [address] Apr, [facility] [place] [facility] [address] [id number] [place] [address] Apr, [facility] [place] [facility] [address] [id number] [place] [address] Apr, [facility] [place] [facility] [address] [id number] [place] [address] Apr, [facility] [place] [facility] [address] [id number] [place] [address] Apr, [facility] [place] [facility] [address] [id number], [place] [address] Apr, [facility] [place] [facility] [address] [id number], [place] [address] 17 Apr, 2014 [facility] [place] [facility] [address] [id number], [place] [address] 16 Apr, 2014 [facility] [place] [facility] [address] [id number], [place] [address] 16 Apr, 2014 [facility] [place] [facility] [address] [id number], [place] [address] 15 Apr, 2014 [facility] [place] [facility] [address] [id number], [place] [address] 15 Apr, 2014 [facility] [place] [facility] [address] [id number], [place] [address] 14 Apr, 2014 [facility] [place] [facility] [address] [id number] [place] [address] 14 Apr, 2014 [facility] [place] [facility] [address] [id number] [place] [address] Apr, [facility] [place] [facility] [address] [id number] [place] [address] Apr, [facility] [place] [facility] [address] [id number] [place] [address] Apr, [facility] [place] [facility] [address] [id number] [place] [address] Apr, [facility] [place] [facility] [address] [id number] [place] [address] Apr, [facility] [place] [facility] [address] [id number] [place] [address] Apr, [facility] [place] [facility] [address] [id number] [place] [address] Apr, [facility] [place] [facility] [address] [id number] [place] [address] Apr, [facility] [place] [facility] [address] [facility] [id number] [place] [address] Mar, [facility] [place] [facility] [address] [id number] [place] [address] Mar, [facility] [place] [facility] [address] [id number], [place] [address] Feb, [facility] [place] [facility] [address] [id number] [place] [address] Feb, [facility] [place] [facility] [address] [facility] [id number] [place] [address] Feb, [facility] [place] [facility] [address] [facility] [id number] [place] [address] Feb, [facility] [place] [facility] [address] [id number] [place] [address] Jan, [facility] [place] [facility] [address] [id number] [place] [address] Jan, [facility] [place] [facility] [address] [id number] [place] [address] Jan, [facility] [place] [facility] [address] [id number] [place] [address] Jan, [facility] [place] [facility] [address] [id number] [place] [address] Jan, [facility] [place] [facility] [address] [id number] [place] [address] Jan, [facility] [place] [facility] [address] [id number] [place] [address] Jan, [facility] [place] [facility] [address] [id number] [place] [address] Jan, [facility] [place] [facility] [address] [id number] [place] [address] Jan, [facility] [place] [facility] [address] [id number] [place] [address] Jan, [facility] [place] [facility] [address] [id number] [place] [address] Jan, [facility] [place] [facility] [address] [id number] [place] [address] Dec, [facility] [place] [facility] [address] [id number] [place] [address] Dec, [facility] [place] [facility] [address] [id number] [place] [address] Dec, [facility] [place] [facility] [address] [id number] [place] [address] Dec, [facility] [place] [facility] [address] [id number] [place] [address] November, [facility] [place] [facility] [address] [id number] [place] [address] November, [facility] [place] [facility] [address] [id number] [place] [address] November, [facility] [place] [facility] [address] [id number] [place] [address] November, [facility] [place] [facility] [address] [id number] [place] [address] November, [facility] [place] [facility] [address] [id number] [place] [address] November, [facility] [place] [facility] [address] [id number] [place] [address] November, [facility] [place] [facility] [address] [id number] [place] [address] November, [facility] [place] [facility] [address] [id number] [place] [address] November, [facility] [place] [facility] [address] [id number] [place] [address] November, [facility] [place] [facility] [address] [id number] [place] [address] November, [facility] [place] [facility] [address] [id number] [place] [address] Oct, [facility] [place] [facility] [address] [id number] [place] [address] Oct, [facility] [place] [facility] [address] [id number] [place] [address] Oct, [facility] [place] [facility] [address] [id number] [place] [address] Oct, [facility] [place] [facility] [address] [id number] [place] [address] Oct, [facility] [place] [facility] [address] [id number] [place] [address] 15 Oct, 2013 [facility] [place] [facility] [address] [id number] [place] [address] Sep, [facility] [place] [facility] [address] [id number] [place] [address] Sep, [facility] [place] [facility] [address] [id number] [place] [address] Sep, [facility] [place] [facility] [address] [id number] [place] [address] Sep, [facility] [place] [facility] [address] [id number] [place] [address] Sep, [facility] [place] [facility] [address] [id number] [place] [address] Sep, [facility] [place] [facility] [address] [id number] [place] [address] Sep, [facility] [place] [facility] [address] [id number] [place] [address] Sep, [facility] [place] [facility] [address] [id number] [place] [address] Sep, [facility] [place] [facility] [address] [facility] [id number] [place] [address] Sep, [facility] [place] [facility] [address] [id number] [place] [id number] Sep, [facility] [place] [facility] [address] [id number] [place] [address] Aug, [facility] [place] [facility] [address] [id number] [place] [address] Aug, [facility] [place] [facility] [address] [id number] [place] [address] Aug, [facility] [place] [facility] [address] [id number] [place] [address] Aug, [facility] [place] [facility] [address] [id number] [place] [address] Jul, [facility] [place] [facility] [address] [id number] [place] [address] Jul, [facility] [place] [facility] [address] [id number] [place] [address] Jul, [facility] [place] [facility] [address] [id number] [place] [address] Jul, [facility] [place] [facility] [address] [id number] [place] [address] Jul, [facility] [place] [facility] [address] [id number] [place] [address] Jul, [facility] [place] [facility] [address] [id number] [place] [address] Jul, [facility] [place] [facility] [address] [id number] [place] [address] Jul, [facility] [place] [facility] [address] [id number] [place] [address] Jul, [facility] [place] [facility] [address] [id number] [place] [address] Jul, [facility] [place] [facility] [address] [id number] [place] [address] Jul, [facility] [place] [facility] [address] [id number] [address] Jul, [facility] [place] [facility] [address] [id number] [place] [address] Jul, [facility] [place] [facility] [address] [id number] [place] [address] Jun, [facility] [place] [facility] [address] [id number] [place] [address] Jun, [facility] [place] [facility] [address] [id number] [address] Jun, [facility] [address] [id number] [place] [address] 30 Jun, 2013 [facility] [address] [id number] [place] [address] Jun, [facility] [address] [id number] [place] [address] Jun, [facility] [address] [id number] [place] [address] Jun, [facility] [address] [id number] [place] [address] Jun, [facility] [address] [id number] [place] [address] Jun, [facility] [address] [facility] [id number] [place] [address] Jun, [facility] [address] [id number] [place] [address] Jun, [facility] [address] [id number] [place] [address] Jun, [facility] [address] [facility] [id number] [place] [address] Jun, [facility] [address] [id number] [place] [address] Jun, [facility] [place] [facility] [address] [id number], [place] [address] Jun, [facility] [address] [id number] [place] [address] Jun, [facility] [address] [facility] [id number] [place] [address] Jun, [facility] [address] [facility] [id number] [place] [address] Jun, [facility] [address] [id number] [place] [address] Jun, [facility] [address] [id number] [place] [address] Jun, [facility] [address] [id number] [place] [address] Jun, [facility] [address] [id number] [place] [address] Jun, [facility] [place] [facility] [address] [id number] [place] [address] Jun, [facility] [place] [facility] [address] [id number] [place] [address] May, [facility] [address] [id number] [place] [address] May, [facility] [address] [id number] [place] [address] Apr, [facility] [address] [id number] [id number] Mar, [facility] [address] [id number] [place] [address] Feb, [facility] [address] [id number] [place] [address] Feb, [facility] [place] [facility] [address] [id number] [place] [address] Jan, [facility] [place] [facility] [address] [id number] [place] [address] Jan, [facility] [place] [facility] [address] [id number] [place] [address] November, [facility] [place] [facility] [address] [id number] [place] [address] November, [facility] [place] [facility] [address] [id number] [place] [address] Oct, [facility] [address] [facility] [id number] [place] [address] Oct, [facility] [address] [facility] [id number] [place] [id number] November, [facility] [address] [facility] [id number] [place] [address] May, [facility] [address] [facility] [id number] [address] Feb, IMMUNIZATIONS No Known Immunizations SOCIAL HISTORY Never Assessed REASON FOR VISIT [employer] [facility] [place] VITAL SIGNS MEDICATIONS Medication Instructions Dosage Frequency Start Date End Date Duration Status Pepcid 20 mg 1 tablet by Oral route 2 times per day Aug, Active Prilosec 20 mg take 2 capsule by Oral route before a meal 1 time per day Sep, Active Loratadine 10 mg take 1 tablet (10 mg) by oral route once daily take at hs Mar, Active metformin 500 mg take 1 tablet by Oral route 2 times per day with morning and evening meals Jun, Active Bactrim DS 800-160 mg 1 tablet by Oral route 2 times per day for 10 day(s) Jun, Active Zocor 40 mg 1 tablet by Oral route 1 time per day Apr, Active Azithromycin 250 mg 2 Tablet by Oral route on day 1 then take 1 daily for 4 days Aug, Active PredniSONE 10 mg 1 Tablet by Oral route 1 time per day for 10 days with food Jun, Active Celexa 40 mg 1 tablet by Oral route 1 time per day Jun, Active Albuterol Sulfate 90 mcg/actuation 2 puffs by Inhalation route every 6 hours as needed PRN cough or wheezing Apr, Active Remeron 30 mg take 1 tablet by Oral route before bedtime 1 time per day Jun, Active Amoxicillin 500 mg 2 capsule by Oral route 2 times per day for 10 day(s) Apr, Active PredniSONE 20 mg 3 tablet by Oral route 1 time per day for 12 day(s) 60mg x 3 d, 40mg x 3 d, 20mg x 3 d, 10 mg x 3 d then stop Oct, Active Amoxicillin 875 mg 1 tablet by Oral route 2 times per day for 14 day(s) Aug, Active Ibuprofen 800 mg take 1 tablet by Oral route 3 times per day with food PRN pain, with food Oct, Active MethylPREDNISolone 4 mg by Oral route every day for 6 days as directed per dose pack Jul, Active Tricor 145 mg 1 tablet by Oral route 1 time per day Apr, Active cyclobenzaprine 10 mg 1 Tablet by Oral route 2 times per day PRN muscle ache, 60 pills must last 2 months Jun, Active Triamcinolone Acetonide 0.1 % apply a thin layer to the affected area(s) by Topical route 3 times per day for 14 days dispense 120 gram tube Jun, Active Lisinopril 10 mg 1 tablet by Oral route 1 time per day Jul, Active Triamcinolone Acetonide 0.5 % apply 1 Cream a thin layer to the affected area(s) by Topical route 2 times per day for 14 days dispense 60 gram tube November, Active Ultram 50 mg take 1 tablet by Oral route every 12 hours as needed PRN pain, 60 pills must last 30 days Jul, Active Clotrimazole-Betamethasone 1-0.05 % apply 1 Cream to the affected and surrounding areas of skin by Topical route in the morning and evening 2 times per day 14 days on and 14 days off Apr, Active Metoprolol Tartrate 50 mg take 1 tablet (50 mg) by oral route 2 times per day with meals Sep, Active RESULTS No Results PROCEDURES No Known procedures INSTRUCTIONS MEDICATIONS ADMINISTERED No Known Medications MEDICAL (GENERAL) HISTORY Type Description Date Medical History hypertension Medical History gastroesophageal reflux disease (GERD) Medical History hyperlipidemia Medical History obesity Medical History chronic pain Medical History psoriasis Medical History abnormal liver enzymes, fatty liver disease Medical History abdominal tumor Medical History anxiety, depression Medical History [facility] abdomen at [facility] 09-14-16 shows a ventral hernia [...] 2010 Hospitalization History past surgeries Hospitalization History Alex Schwabmi back pain /Hernia 10/2018
--- OUTSIDE RECORDS SUMMARY | 2019-02-08 10:30 | XMS REPORT ---
Author Author Migration, Doctor Organization [facility] Address Unknown Phone Unavailable Care Team Providers Care Cardiology Coordinator Name Role Phone Migration, Doctor Unavailable Unavailable PROBLEMS Type Condition ICD9-CM Code GPT44-LH Code Onset Dates Condition Status SNOMED Code Problem Fatty liver disease, nonalcoholic K76.0 Active 810423195 Problem Psoriasis L40.9 Active 7930509 Problem Hyperlipidemia E78.5 Active 36054372 Problem Metabolic syndrome X E88.81 Active 479432950 Problem Psoriasis vulgaris L40.0 Active 265972710 Problem Elevated serum GGT level R74.8 Active 270280701 Problem Dysthymia F34.1 Active 15164567 Problem Urinary frequency R35.0 Active 316546038 Problem Heartburn R12 Active 08829195 Problem Substance abuse F19.10 Active 84535663 Problem Emotional lability R45.86 Active 43509248 Problem Essential hypertension with goal blood pressure less than 130\/80 I10 Active 92785939 Problem Pulmonary emphysema, unspecified emphysema type J43.9 Active 17243940 Problem Breast cancer screening Z12.39 Active 470621986 Problem Weight loss R63.4 Active 209917137 Problem Colonoscopy refused Z53.20 Active 914904171 Problem Mixed hyperlipidemia E78.2 Active 246042982 Problem Lumbago with sciatica, right side M54.41 Active 022379429691199 Problem Lumbago with sciatica, left side M54.42 Active 790371837 Problem Dental caries K02.9 Active 08587703 Problem High risk medication use Z79.899 Active 155515312 Problem Other chronic pain G89.29 Active 10757744 Problem Hematuria, unspecified type R31.9 Active 43046710 Problem Serum calcium elevated E83.52 Active 23839964 Problem Vitamin D deficiency E55.9 Active 48868768 Problem Epigastric abdominal pain R10.13 Active 19178951 Problem Gynecologic exam normal Z01.419 Active 532635014 Problem Flexural atopic dermatitis L20.89 Active 142810200 Problem 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 Active 780613883 Problem Colon cancer screening Z12.11 Active 375343105 Problem Hypomagnesemia E83.42 Active 301232776 Problem Atopic dermatitis L20.9 Active 25462009 Problem Hypertension I10 Active 18973383 Problem Hypoglycemia E16.2 Active 104372336 ALLERGIES No Information ENCOUNTERS Encounter Location Date Diagnosis [facility] [address] [facility] [id number] [place] [address] November, [facility] [address] [id number] [place] [address] November, [facility] [address] [id number][place] 2364609[place] November, [facility] [address] [id number], [place] 735146163 November, Lumbago M54.5 ; Vision disturbance H53.9 and Hyperlipidemia E78.5 [facility] [address] [facility] [address] [id number] [place] [address] November, Elevated AFP R77.2 [facility] [address] [id number], [place] [address]84155865 Oct, Flexural atopic dermatitis L20.89 [facility] [address] [id number], [place] 219085645 Oct, High risk medication use Z79.899 [facility] [address] [id number], [place] 643367235 Aug, [facility] [address] [id number], [place] [address]37[address] Jul, [facility] [address] [id number], [place] 514050664 Jul, Serum calcium elevated E83.52 and Vitamin D deficiency E55.[address] [facility] [address] [id number], [place] 0954038[place] Jul, [facility] [address] [id number], [place] 821326[address] Jul, Hypertension I10 ; Hypoglycemia E16.2 ; Colon cancer screening Z12.11 and Left upper quadrant pain R10.12 [facility] [address] [address] [place] [address] AVE [id number], [place] 886063212 Jul, Atopic dermatitis L20.9 [facility] [address] [place] [address] AVE [id number], [place] 350081172 May, Serum calcium elevated E83.52 ; Fatty liver disease, nonalcoholic K76.0 ; Hypomagnesemia E83.42 ; Vitamin D deficiency E55.9 and Elevated liver enzymes R74.8 [facility] [address] [place] [address] AVE [id number], [place] 879083054 Apr, High risk medication use Z79.899 ; Dysthymia F34.1 ; Fatty liver disease, nonalcoholic K76.0 ; Serum calcium elevated E83.52 and Viral gastroenteritis A08.4 [facility] [address] [id number], [place] [address] Feb, [facility] [address] [id number], [place] 716604524 November, Serum calcium elevated E83.52 and Elevated serum GGT level R74.8 [facility] [address] [place] [address] AVE [id number], [place] 659333014 November, Fatty liver disease, nonalcoholic K76.0 [facility] [place] [address] AVE [id number], [place] 270930996 November, High risk medication use Z79.899 ; Hematuria, unspecified type R31.9 ; Dental caries K02.9 ; Urinary frequency R35.0 and Substance abuse F19.10 [facility] [address] [id number], [place] 811407123 Sep, [facility] [address] [address] [id number], [place] 113594490 Aug, [facility] A[facility] [id number], [place] [address] Aug, [facility] [address] [id number], [place] 974251534 Jul, [facility] [address] [id number], [place] [address]431301[address] Jun, [facility] [address] [id number], [place] 323803159 Jun, Hematuria, unspecified type R31.[address] [facility] [address] [id number], [place] 769784184 May, Lumbago with sciatica, left side M54.42 and Hematuria, unspecified type R31.[address] [facility] [address] [id number], [place] 721929545 May, Hematuria, unspecified type R31.9 [facility] [address] [place] [address] AVE [id number], [place] 208828626 Apr, High risk medication use Z79.899 ; Lumbago with sciatica, left side M54.42 ; Lumbago with sciatica, right side M54.41 ; Other chronic pain G89.29 ; Emotional lability R45.86 and Colonoscopy refused Z53.[address] [facility] [address] [id number], [place] 637216258 Feb, [facility] [address] [id number], [place] 9944076[address] Feb, [facility] [address] [facility] [id number], [place] [address] Jan, [facility] [address] [id number], [place] 942624713 Jan, Psoriasis vulgaris L40.[address] [facility] [address] [id number], [place] 318327939 Jan, High risk medication use Z79.[address] [facility] [address] [id number], [place] 549828746 Dec, Psoriasis vulgaris L40.[address] [facility] [address] [id number], [place] 918181279 Oct, Mixed hyperlipidemia E78.2 and High risk medication use Z79.[address] [facility] [address] [id number], [place] 130550378 Oct, [facility] [address] [id number], [place] 107155010 Oct, [facility] [address] [id number], [place] 305495492 Oct, Hyperlipidemia E78.5 and Weight loss R63.[address] [facility] [address] [id number], [place] 719480435 Oct, Gynecologic exam normal Z01.419 ; Breast cancer screening Z12.39 ; Weight loss R63.4 and Colon cancer screening Z12.[address] [facility] [address] [id number], [place] 638089290 Jul, [facility] [address] [id number], [place] 605678033 Jul, High risk medication use Z79.[address] [facility] [address] [id number], [place] 281346566 Jul, Metabolic syndrome X E88.81 ; Elevated serum GGT level R74.8 ; Dysthymia F34.1 and 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 [facility] [address] [id number], [place] 664199181 Jun, [facility] [address] [id number], [place] 268768050 May, [facility] [address] [id number], [place] 087520649 May, [facility] [address] [id number], [place] 143436255 May, High risk medication use Z79.[address] [facility] [address] [id number], [place] 285993989 May, [facility] [address] [id number] [place] 56[address] May, Psoriasis vulgaris L40.0 and Other intermediate teacher (current) drug therapy Z79.[address] [facility] [address] [id number] [place] 904966130 Mar, Hyperlipidemia E78.[address] [facility] [address] [id number] [place] 4494[address] Mar, [facility] [address] [id number] [place] [address] Mar, [facility] [address] [id number], [place] 685404248 Mar, Fatty liver disease, nonalcoholic K76.0 and Hyperlipidemia E78.[address] [facility] [address] [id number], [place] 547711223 Mar, [facility] [address] [id number], [place] 291137392 Mar, Fatty liver disease, nonalcoholic K76.0 ; Psoriasis L40.9 and Hyperlipidemia E78.[address] [facility] [address] [id number], [place] 262653943 Mar, [facility] [address] [facility] [id number], [place] 961995997 Feb, [facility] [address] [id number], [place] 596324983 Feb, [facility] [address] [id number], [place] 133730237 Jan, [facility] [address] [id number], [place] 228046419 Dec, [facility] [address] [id number], [place] 247341263 Dec, [facility] [address] [facility] [id number], [place] [address] November, [facility] [address] [id number], [place] 632686502 November, [facility] [address] [id number], [place] 266806599 Oct, [facility] [address] [id number], [place] 301550107 Oct, Fatty liver disease, nonalcoholic K76.0 and Encounter for immunization Z23 [facility] [place] [address] [id number], [place] [address] Oct, [facility] [address] [id number], [place] 412093107 Sep, Fatty liver disease, nonalcoholic K76.0 [facility] [address] [id number], [place] 419517153 Sep, Fatty liver disease, nonalcoholic K76.0 ; High risk medication use Z79.899 ; Emotional lability R45.86 ; Hyperlipidemia E78.5 and Essential hypertension with goal blood pressure less than 130\/80 I10 [facility] [place] [address] [id number], [place] [address] Sep, [facility] [address] [id number], [place] 787318523 Aug, Mixed hyperlipidemia E78.2 and Heartburn R12 [facility] [address] [id number], [place] 869660678 Aug, High risk medication use Z79.899 ; Emotional lability R45.86 ; Pulmonary emphysema, unspecified emphysema type J43.9 and Heartburn R12 [facility] [address] [id number], [place] 405672444 Jul, [facility] [address] [id number], [place] 473428606 Jul, [facility] [address] [id number], [place] 7775315[address] Jun, [facility] [address] [id number], [place] 315757231 May, Right upper quadrant abdominal pain R10.11 and Fatty liver K76.0 [facility] [address] [place] [address] AVE [id number], [place] 489130329 Apr, Elevated AFP R77.2 ; Fatty liver K76.0 ; Unspecified cirrhosis of liver K74.60 ; High risk medication use Z79.899 ; Anhedonia R45.84 and Psoriasis L40.9 [facility] [address] [place] [address] AVE [id number], [place] 330171255 Apr, [facility] [address]arm[address] [place] [address] AVE [id number], [place] 213470683 Apr, Elevated liver enzymes R74.8 [facility] [address] [place] [address] AV [id number], [place] [id number] Apr, Abdominal pain, left lower quadrant R10.32 ; Mixed hyperlipidemia E78.2 and Hyperlipidemia 272.4 [facility] [address] [id number], [place] 477334834 09 Apr, 2015 Encounter for routine gynecological examination Z01.419 and Breast cancer screening Z12.39 [facility] Sarmiento[address] [place] [address] AVE [id number], [place] 739658997 Apr, Abdominal pain, left lower quadrant R10.32 ; Mixed hyperlipidemia E78.2 and Lumbago M54.5 [facility] [address] [place] [address] AVE [id number], [place] 631648496 Mar, Psoriasis 696.1 ; Hyperlipidemia 272.4 and Chronic pain 338.29 [facility] [address] [place] [address] AVE [id number], [place] 613357600 Mar, [facility] [address] [place] [address] AVE [id number], [place] 561034446 Mar, [facility] [address] [place] [address] AVE [id number], [place] 744332031 Mar, Rash and nonspecific skin eruption 782.[address] [facility] [address] [id number], [place] 427891389 Feb, Dermatitis 692.9 and Thoracic or lumbosacral neuritis or radiculitis, unspecified 724.[address] [facility] [address] [id number], [place] 249942107 Feb, Dermatitis 692.9 and Follow-up examination V67.[address] [facility] [address] [id number], [place] 836728495 Jan, [facility] [address] [id number], [place] 142503154 Jan, Allergic dermatitis 692.[address] [facility] [address] [id number], [place] 922997802 Jan, Rash and nonspecific skin eruption 782.[address] [facility] [address] [id number], [place] 016160591 Jan, [facility] [address] [id number], [place] 751748068 Jan, Dermatitis 692.9 and Environmental allergies V15.[address] [facility] [address] [id number], [place] 437997474 Dec, [facility] [address] [id number], [place] 208779584 Dec, [facility] [address] [id number], [place] 755069641 Dec, [facility] [address] [id number], [place] 504526224 November, [facility] [address] [id number], [place] 759001628 November, Muscle spasm 728.85 [facility] [place] [address] [id number], [place] [address] Oct, [facility] [place] [address]00565100[place], [place] [address] Oct, [facility] [place] [facility] [address] [id number] [place] [address] Sep, [facility] [place] [facility] [address] [id number] [place] [address] 23 Sep, 2014 [facility] [place] [facility] [address] [id number] [place] [address] 20 Sep, 2014 [facility] [place] [facility] [address] [id number] [place] [address] 20 Sep, 2014 [facility] [place] [facility] [address] [id number] [place] [address] Sep, [facility] [place] [facility] [address] [id number] [place] [address] 19 Sep, 2014 [facility] [place] [facility] [address] [id number] [place] [address] 16 Sep, 2014 [facility] [place] [facility] [address] [id number] [place] [address] 16 Sep, 2014 [facility] [place] [facility] [address] [id number] [place] [address] Aug, [facility] [place] [facility] [address] [id number] [place] [address] Aug, [facility] [place] [facility] [address] [id number] [place] [address] Jul, [facility] [place] [facility] [address] [id number] [place] [address] Jul, [facility] [place] [facility] [address] [id number] [place] [address] Jul, [facility] [place] [facility] [address] [id number] [place] [address] Jul, [facility] [place] [facility] [address] [id number] [place] [address] Jul, [facility] [place] [facility] [address] [id number] [place] [address] Jul, [facility] [place] [facility] [address] [id number] [place] [address] Jun, [facility] [place] [facility] [address] [id number] [place] [address] Jun, [facility] [place] [facility] [address] [id number] [place] [address] Jun, [facility] [place] [facility] [address] [id number] [place] [address] Jun, [facility] [place] [facility] [address] [id number] [place] [address] Jun, [facility] [place] [facility] [address] [id number] [place] [address] Jun, [facility] [place] [facility] [address] [id number] [place] [address] Jun, [facility] [place] [facility] [address] [id number] [place] [address] Jun, [facility] [place] [facility] [address] [id number] [place] [address] May, [facility] [place] [facility] [address] [id number] [place] [address] May, [facility] [place] [facility] [address] [id number] [place] [address] May, [facility] [place] [facility] [address] [id number] [place] [address] May, [facility] [place] [facility] [address] [id number] [place] [address] May, [facility] [place] [facility] [address] [id number] [place] [address] Apr, [facility] [place] [facility] [address] [id number] [place] [address] Apr, [facility] [place] [facility] [address] [id number] [place] [address] Apr, [facility] [place] [facility] [address] [id number] [place] [address] Apr, [facility] [place] [facility] [address] [id number] [place] [address] Apr, [facility] [place] [facility] [address] [id number] [place] [address] Apr, [facility] [place] [facility] [address] [id number] [place] [address] Apr, [facility] [place] [facility] [address] [id number] [place] [address] Apr, [facility] [place] [facility] [address] [id number] [place] [address] Apr, [facility] [place] [facility] [address] [id number] [place] [address] Apr, [facility] [place] [facility] [address] [id number] [place] [address] 17 Apr, 2014 [facility] [place] [facility] [address] [id number], [place] [address] 17 Apr, 2014 [facility] [place] [facility] [address] [id number], [place] [address] 16 Apr, 2014 [facility] [place] [facility] [address] [id number], [place] [address] 16 Apr, 2014 [facility] [place] [facility] [address] [id number] [place] [address] 15 Apr, 2014 [facility] [place] [facility] [address] [id number], [place] [address] 15 Apr, 2014 [facility] [place] [facility] [address] [id number] [place] [address] 14 Apr, 2014 [facility] [place] [facility] [address] [id number] [place] [address] 14 Apr, 2014 [facility] [place] [facility] [address] [id number] [place] [address] Apr, [facility] [place] [facility] [address] [id number] [place] [address] Apr, [facility] [place] [facility] [address] [id number] [place] [address] Apr, [facility] [place] [facility] [address] [id number] [place] [address] Apr, [facility] [place] [facility] [address] [id number] [place] [address] Apr, [facility] [place] [facility] [address] [id number] [place] [address] Apr, [facility] [place] [facility] [address] [id number] [place] [address] Apr, [facility] [place] [facility] [address] [id number] [place] [address] Apr, [facility] [place] [facility] [address] [id number] [place] [address] Mar, [facility] [place] [facility] [address] [id number] [place] [address] Mar, [facility] [place] [facility] [address] [id number] [place] [address] Feb, [facility] [place] [facility] [address] [id number] [place] [address] Feb, [facility] [place] [facility] [address] [id number] [place] [address] Feb, [facility] [place] [facility] [address] [id number] [place] [address] Feb, [facility] [place] [facility] [address] [id number] [place] [address] Jan, [facility] [place] [facility] [address] [id number] [place] [address] Jan, [facility] [place] [facility] [address] [id number] [place] [address] Jan, [facility] [place] [facility] [address] [id number] [place] [address] Jan, [facility] [place] [facility] [address] [id number] [place] [address] Jan, [facility] [place] [facility] [address] [id number] [place] [address] Jan, [facility] [place] [facility] [address] [id number] [place] [address] Jan, [facility] [place] [facility] [address] [id number] [place] [address] Jan, [facility] [place] [facility] [address] [id number] [place] [address] Jan, [facility] [place] [facility] [address] [id number] [place] [address] Jan, [facility] [place] [facility] [address] [id number] [place] [address] Jan, [facility] [place] [facility] [address] [id number] [place] [address] Dec, [facility] [place] [facility] [address] [id number] [place] [address] Dec, [facility] [place] [facility] [address] [id number] [place] [address] Dec, [facility] [place] [facility] [address] [id number] [place] [address] Dec, [facility] [place] [facility] [address] [id number] [place] [address] November, [facility] [place] [facility] [address] [id number] [place] [address] November, [facility] [place] [facility] [address] [id number] [place] [address] November, [facility] [place] [facility] [address] [id number] [place] [address] November, [facility] [place] [facility] [address] [id number] [place] [address] November, [facility] [place] [facility] [address] [id number] [place] [address] November, [facility] [place] [facility] [address] [id number] [place] [address] November, [facility] [place] [facility] [address] [id number] [place] [address] November, [facility] [place] [facility] [address] [id number] [place] [address] November, [facility] [place] [facility] [address] [id number] [place] [address] November, [facility] [place] [facility] [address] [id number] [place] [address] November, [facility] [place] [facility] [address] [id number] [place] [address] Oct, [facility] [place] [facility] [address] [id number] [place] [address] 29 Oct, 2013 [facility] [place] [facility] [address] [id number] [place] [address] Oct, [facility] [place] [facility] [address] [id number] [place] [address] Oct, [facility] [place] [facility] [address] [id number] [place] [address] Oct, [facility] [place] [facility] [address] [id number] [place] [address] Oct, [facility] [place] [facility] [address] [id number] [place] [address] Sep, [facility] [place] [facility] [address] [id number] [place] [address] Sep, [facility] [place] [facility] [address] [id number] [place] [address] Sep, [facility] [place] [facility] [address] [id number] [place] [address] Sep, [facility] [place] [facility] [address] [id number] [place] [address] Sep, [facility] [place] [facility] [address] [id number] [place] [address] Sep, [facility] [place] [facility] [address] [id number] [place] [address] Sep, [facility] [place] [facility] [address] [id number] [place] [address] Sep, [facility] [place] [facility] [address] [id number] [place] [address] Sep, [facility] [place] [facility] [address] [id number] [place] [address] Sep, [facility] [place] [facility] [address] [id number] [place] [address] Sep, [facility] [place] [facility] [address] [id number] [place] [address] Aug, [facility] [place] [facility] [address] [id number] [place] [address] Aug, [facility] [place] [facility] [address] [id number] [place] [address] Aug, [facility] [place] [facility] [address] [id number] [place] [address] Aug, [facility] [place] [facility] [address] [id number] [place] [address] Jul, [facility] [place] [facility] [address] [id number] [place] [address] Jul, [facility] [place] [facility] [address] [id number] [place] [address] Jul, [facility] [place] [facility] [address] [id number] [place] [address] Jul, [facility] [place] [facility] [address] [id number] [place] [address] Jul, [facility] [place] [facility] [address] [id number] [place] [address] Jul, [facility] [place] [facility] [address] [id number] [place] [address] Jul, [facility] [facility] [address] [id number] [place] [address] Jul, [facility] [place] [facility] [address] [id number] [place] [address] Jul, [facility] [place] [facility] [address] [id number] [place] [address] Jul, [facility] [place] [facility] [address] [id number] [place] [address] Jul, [facility] [place] [facility] [address] [id number] [place] [address] Jul, [facility] [place] [facility] [address] [id number] [place] [address] Jul, [facility] [place] [facility] [address] [id number] [place] [address] Jun, [facility] [place] [facility] [address] [id number] [place] [address] Jun, [facility] [place] [facility] [address] [id number] [place] [address] Jun, [facility] [place] [facility] [address] [id number] [place] [address] 30 Jun, 2012 [facility] [address] [id number] [place] [address] Jun, 2012 [facility] [address] [id number] [place] [address] Jun, [facility] [address] [id number] [place] [address] Jun, [facility] [place] [facility] [address] [id number] [place] [address] Jun, [facility] [address] [id number] [place] [address] Jun, [facility] [address] [id number] [place] [address] Jun, [facility] [address] [id number] [place] [address] Jun, [facility] [address] [id number] [place] [address] Jun, [facility] [address] [id number] [place] [address] Jun, [facility] [address] [facility] [id number] [place] [address] Jun, [facility] [place] [facility] [address] [id number] [place] [address] Jun, [facility] [place] [facility] [address] [id number] [place] [address] Jun, [facility] [place] [facility] [address] [id number] [place] [address] Jun, [facility] [place] [facility] [address] [id number] [place] [address] Jun, [facility] [place] [facility] [address] [facility] [id number] [place] [address] 05 Jun, 2013 [facility] [place] [facility] [address] [id number] [place] [address] Jun, [facility] [place] [facility] [address] [id number] [place] [address] Jun, [facility] [place] [facility] [address] [id number] [place] [address] Jun, [facility] [place] [facility] [address] [id number] [place] [address] Jun, [facility] [place] [facility] [address] [id number] [place] [address] May, [facility] [place] [facility] [address] [id number] [place] [address] May, [facility] [address] [id number] [place] [place] [address] Apr, [facility] [address] [id number] [id number] Mar, [facility] [address] [id number] [place] [address] Feb, [facility] [place] [facility] [address] [id number] [place] [address] Feb, [facility] [address] [id number] [place] [place] [address] Jan, [facility] [place] [facility] [address] [id number] [place] [address] Jan, [facility] [place] [facility] [address] [id number] [place] [address] November, [facility] [place] [facility] [address] [id number] [place] [address] November, [facility] [place] [facility] [address] [id number] [place] [address] Oct, [facility] [place] [facility] [address] [id number] [place] [address] Oct, [facility] [address] [id number] [place] [id number] November, [facility] [place] [address] [facility] [id number] [place] [address] May, [facility] [place] [address] [facility] [id number] [place] [address] Feb, IMMUNIZATIONS No Known Immunizations SOCIAL HISTORY Never Assessed REASON FOR [place]IT [place] [place] VITAL SIGNS MEDICATIONS Unknown Medications RESULTS No Results PROCEDURES Procedure Date Ordered Result Body Site MAMMOGRAM, SCREENING February 05, 2014 INSTRUCTIONS MEDICATIONS ADMINISTERED No Known Medications MEDICAL (GENERAL) HISTORY Type Description Date Medical History hypertension Medical History gastroesophageal reflux disease (GERD) Medical History hyperlipidemia Medical History obesity Medical History chronic pain Medical History psoriasis Medical History abnormal liver enzymes, fatty liver disease Medical History abdominal tumor Medical History anxiety, depression Medical History [facility] abdomen at [facility] 09-14-16 shows a ventral hernia and fatty liver disease Medical History Pt no-showed colonoscopy Medical History no showed mammogram Medical History large hiatal hernia and normal liver per CT Medical History US shows right kidney-column of Bertine and fatty liver Surgical History tonsillectomy Surgical History appendectomy 03/2011 Surgical History hysterectomy, total with bilateral salpingo-oophorectomy (BSO) 03/2011 Surgical History large abdominal tumor/uterus removed 2010 Hospitalization History past surgeries Hospitalization History [facility] back pain /Hernia 10/2018
--- OUTSIDE RECORDS SUMMARY | 2019-02-08 10:30 | XMS REPORT ---
Author Author Migration, Doctor Organization [facility] Address Unknown Phone Unavailable Care Team Providers Care Political Theory Professor Name Role Phone Migration, Doctor Unavailable Unavailable PROBLEMS Type Condition ICD9-CM Code LZK86-SO Code Onset Dates Condition Status SNOMED Code Problem Fatty liver disease, nonalcoholic K76.0 Active 634017817 Problem Psoriasis L40.9 Active 6864850 Problem Hyperlipidemia E78.5 Active 61287179 Problem Metabolic syndrome X E88.81 Active 584584978 Problem Psoriasis vulgaris L40.0 Active 438534267 Problem Elevated serum GGT level R74.8 Active 838291851 Problem Dysthymia F34.1 Active 91861194 Problem Urinary frequency R35.0 Active 758866185 Problem Heartburn R12 Active 21158104 Problem Substance abuse F19.10 Active 36872615 Problem Emotional lability R45.86 Active 35116409 Problem Essential hypertension with goal blood pressure less than 130\/80 I10 Active 84263339 Problem Pulmonary emphysema, unspecified emphysema type J43.9 Active 13824979 Problem Breast cancer screening Z12.39 Active 718183144 Problem Weight loss R63.4 Active 867954849 Problem Colonoscopy refused Z53.20 Active 770416236 Problem Mixed hyperlipidemia E78.2 Active 696565930 Problem Lumbago with sciatica, right side M54.41 Active 128396098444830 Problem Lumbago with sciatica, left side M54.42 Active 867142671 Problem Dental caries K02.9 Active 13878624 Problem High risk medication use Z79.899 Active 090700295 Problem Other chronic pain G89.29 Active 43717556 Problem Hematuria, unspecified type R31.9 Active 51620171 Problem Serum calcium elevated E83.52 Active 31222527 Problem Vitamin D deficiency E55.9 Active 98769300 Problem Epigastric abdominal pain R10.13 Active 42314930 Problem Gynecologic exam normal Z01.419 Active 653780192 Problem Flexural atopic dermatitis L20.89 Active 141801836 Problem 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 Active 898538287 Problem Colon cancer screening Z12.11 Active 153463547 Problem Hypomagnesemia E83.42 Active 072930321 Problem Atopic dermatitis L20.9 Active 47951334 Problem Hypertension I10 Active 58322889 Problem Hypoglycemia E16.2 Active 397093133 ALLERGIES No Information ENCOUNTERS Encounter Location Date Diagnosis [facility] [address] [facility] [id number] [place] [address] November, [facility] [address] [id number][place] [id number] November, Lumbago M54.5 and Vision disturbance H53.9 [facility] [address] [id number] [id number] November, Elevated AFP R77.2 [facility] [address] [id number], [place] [id number] Oct, Flexural atopic dermatitis L20.89 [facility] [address] [id number], [place] 073406332 Oct, High risk medication use Z79.899 [facility] [address] [id number], [place] [id number] Aug, [facility] [address] [id number], [place] 745739946 Jul, [facility] [address] [id number], [place] 292158644 Jul, Serum calcium elevated E83.52 and Vitamin D deficiency E55.9 [facility] [address] [id number][place] [address]792049[address] Jul, [facility] [address] [id number], [place] 281270008 Jul, Hypertension I10 ; Hypoglycemia E16.2 ; Colon cancer screening Z12.11 and Left upper quadrant pain R10.12 [facility] [address] [id number], [place] 937037142 Jul, Atopic dermatitis L20.[address] [facility] [address] [id number], [place] [id number] May, Serum calcium elevated E83.52 ; Fatty liver disease, nonalcoholic K76.0 ; Hypomagnesemia E83.42 ; Vitamin D deficiency E55.9 and Elevated liver enzymes R74.[address] [facility] [address] [id number], [place] 238966117 Apr, High risk medication use Z79.899 ; Dysthymia F34.1 ; Fatty liver disease, nonalcoholic K76.0 ; Serum calcium elevated E83.52 and Viral gastroenteritis A08.[address] [facility] [address] [id number], [place] [id number] Feb, [facility] [address] [id number], [place] [id number] November, Serum calcium elevated E83.52 and Elevated serum GGT level R74.8 [facility] [address] [id number], [place] [id number] November, Fatty liver disease, nonalcoholic K76.0 [facility] [address] [id number], [place] 310504162 November, High risk medication use Z79.899 ; Hematuria, unspecified type R31.9 ; Dental caries K02.9 ; Urinary frequency R35.0 and Substance abuse F19.[address] [facility] [address] [id number], [place] 408347147 Sep, [facility] [address] [id number], [place] 100302674 Aug, [facility] [address] [id number], [place] [id number] Aug, [facility] [address] [id number], [place] 758325057 Jul, [facility] [address] [id number], [place] 211017090 Jun, [facility] [address] [id number] [place] 628925751 Jun, Hematuria, unspecified type R31.[address] [facility] [address] [id number], [place] 785807099 May, Lumbago with sciatica, left side M54.42 and Hematuria, unspecified type R31.[address] [facility] [address] [id number], [place] 484349722 May, Hematuria, unspecified type R31.[address] [facility] [address] [id number], [place] 822515063 Apr, High risk medication use Z79.899 ; Lumbago with sciatica, left side M54.42 ; Lumbago with sciatica, right side M54.41 ; Other chronic pain G89.29 ; Emotional lability R45.86 and Colonoscopy refused Z53.[address] [facility] [address] [id number], [place] 304852662 Feb, [facility] [address] [id number], [place] [id number] Feb, [facility] [address] [facility] [id number] [address] Jan, [facility] [address] [id number], [place] 230454913 Jan, Psoriasis vulgaris L40.[address] [facility] [address] [id number], [place] 889201649 Jan, High risk medication use Z79.[address] [facility] [address] [id number], [place] [id number] Dec, Psoriasis vulgaris L40.[address] [facility] [address] [id number], [place] 307254050 Oct, Mixed hyperlipidemia E78.2 and High risk medication use Z79.[address] [facility] [address] [id number], [place] 326904126 Oct, [facility] [address] [id number], [place] 189100276 Oct, [facility] [address] [id number], [place] 756235480 Oct, Hyperlipidemia E78.5 and Weight loss R63.[address] [facility] [address] [id number], [place] 408267067 Oct, Gynecologic exam normal Z01.419 ; Breast cancer screening Z12.39 ; Weight loss R63.4 and Colon cancer screening Z12.[address] [facility] [address] [id number], [place] 964704501 Jul, [facility] [address] [id number], [place] 168727291 Jul, High risk medication use Z79.[address] [facility] [address] [id number], [place] 625411610 Jul, Metabolic syndrome X E88.81 ; Elevated serum GGT level R74.8 ; Dysthymia F34.1 and 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 [facility] [address] [id number], [place] 905377411 Jun, [facility] [address] [id number], [place] 909194193 May, [facility] [address] [id number], [place] 589665332 May, [facility] [address] [id number], [place] 275076514 May, High risk medication use Z79.[address] [facility] [address] [id number], [place] 657988498 May, [facility] [address] [id number], [place] 518579070 May, Psoriasis vulgaris L40.0 and Other fpc (current) drug therapy Z79.[address] [facility] [address] [id number] [place] [address]38[address]85 Mar, Hyperlipidemia E78.[address] [facility] [address] [id number] [place] [id number] Mar, [facility] [address] [id number] [place] 959849962 Mar, [facility] [address] [id number] [place] 959760806 Mar, Fatty liver disease, nonalcoholic K76.0 and Hyperlipidemia E78.[address] [facility] [address] [id number] [place] [id number] Mar, [facility] [address] [id number] [place] [id number] Mar, Fatty liver disease, nonalcoholic K76.0 ; Psoriasis L40.9 and Hyperlipidemia E78.[address] [facility] [address] [id number] [facility] 826291132 Mar, [facility] [address] [facility] [id number] 519697394 Feb, [facility] [address] [id number] [place] [id number] Feb, [facility] [address] [id number], [place] 070283073 Jan, [facility] [address] [id number] [place] [id number] Dec, [facility] [address] [id number] [place] [id number] Dec, [facility] [place] [facility] [address] [facility] [id number] [address] November, [facility] [address] [id number] [place] [id number] November, [facility] [address] [id number] [place] [id number] Oct, [facility] [address] [id number], [place] [id number] Oct, Fatty liver disease, nonalcoholic K76.0 and Encounter for immunization Z23 [facility] [address] [id number] [address] Oct, [facility] [address] [id number], [place] 758855377 Sep, Fatty liver disease, nonalcoholic K76.0 [facility] [address] [id number], [place] 534362555 Sep, Fatty liver disease, nonalcoholic K76.0 ; High risk medication use Z79.899 ; Emotional lability R45.86 ; Hyperlipidemia E78.5 and Essential hypertension with goal blood pressure less than 130\/80 I10 [facility] [address] [id number] [address] Sep, [facility] [address] [id number], [place] 379319107 Aug, Mixed hyperlipidemia E78.2 and Heartburn R12 [facility] [address] [id number], [place] [id number] Aug, High risk medication use Z79.899 ; Emotional lability R45.86 ; Pulmonary emphysema, unspecified emphysema type J43.9 and Heartburn R12 [facility] [address] [id number], [place] 494952538 Jul, [facility] [address] [id number], [place] [id number] Jul, [facility] [address] [id number], [place] 511141016 Jun, [facility] [address] [id number], [place] 322981219 May, Right upper quadrant abdominal pain R10.11 and Fatty liver K76.0 [facility] [address] [id number], [place] 552650662 Apr, Elevated AFP R77.2 ; Fatty liver K76.0 ; Unspecified cirrhosis of liver K74.60 ; High risk medication use Z79.899 ; Anhedonia R45.84 and Psoriasis L40.9 [facility] [address] [place] [address] AVE [id number], [place] [id number] Apr, [facility] [address] [id number], [place] [id number] Apr, Elevated liver enzymes R74.8 [facility] [address] [id number], [place] [id number] Apr, Abdominal pain, left lower quadrant R10.32 ; Mixed hyperlipidemia E78.2 and Hyperlipidemia 272.4 [facility] [address] [id number], [place] 006328076 Apr, Encounter for routine gynecological examination Z01.419 and Breast cancer screening Z12.39 [facility] [address] [id number], [place] [id number] Apr, Abdominal pain, left lower quadrant R10.32 ; Mixed hyperlipidemia E78.2 and Lumbago M54.5 [facility] [address] [id number], [place] 984687830 Mar, Psoriasis 696.1 ; Hyperlipidemia 272.4 and Chronic pain 338.29 [facility] [address] [id number], [place] [id number] Mar, [facility] [address] [id number], [place] [id number] Mar, [facility] [address] [id number], [place] [id number] Mar, Rash and nonspecific skin eruption 782.1 [facility] [address] [id number], [place] 604046084 Feb, Dermatitis 692.9 and Thoracic or lumbosacral neuritis or radiculitis, unspecified 724.[address] [id number], [place] 348492921 Feb, Dermatitis 692.9 and Follow-up examination V67.[address] [facility] [address] [id number] [place] [id number] Jan, [facility] [address] [id number], [place] 854494749 Jan, Allergic dermatitis 692.[address] [facility] [address] [id number], [place] 777977407 Jan, Rash and nonspecific skin eruption 782.[address] [facility] [address] [id number], [place] [id number] Jan, [facility] [address] [id number], [place] [id number] Jan, Dermatitis 692.9 and Environmental allergies V15.[address] [facility] [address] [id number], [place] 592247498 Dec, [facility] [address] [id number], [place] 422667588 Dec, [facility] [address] [id number], [place] 501128400 Dec, [facility] [address] [id number], [place] 160457782 November, [facility] [address] [id number], [place] 737772694 November, Muscle spasm 728.85 [facility] [address] [facility] [id number] [address] Oct, [facility] [address] [id number] [address] Oct, [facility] [address] [facility] [id number] [place] [address] Sep, [facility] [address] [facility] [id number] [place] [address] Sep, [facility] [place] [facility] [address] [id number] [place] [address] Sep, [facility] [place] [facility] [address] [id number] [place] [address] 20 Sep, 2014 [facility] [place] [facility] [address] [id number] [place] [address] 19 Sep, 2014 [facility] [place] [facility] [address] [id number] [place] [address] 19 Sep, 2014 [facility] [place] [facility] [address] [id number] [place] [address] 16 Sep, 2014 [facility] [place] [facility] [address] [id number] [place] [address] 16 Sep, 2014 [facility] [place] [facility] [address] [id number] [place] [address] Aug, [facility] [place] [facility] [address] [id number] [place] [address] Aug, [facility] [place] [facility] [address] [id number] [place] [address] Jul, [facility] [place] [facility] [address] [id number] [place] [address] Jul, [facility] [place] [facility] [address] [id number] [place] [address] Jul, [facility] [place] [facility] [address] [id number] [place] [address] Jul, [facility] [place] [facility] [address] [id number] [place] [address] Jul, [facility] [place] [facility] [address] [id number] [place] [address] Jul, [facility] [place] [facility] [address] [id number] [place] [address] Jun, [facility] [place] [facility] [address] [id number] [place] [address] 18 Jun, 2014 [facility] [place] [facility] [address] [id number] [place] [address] Jun, [facility] [place] [facility] [address] [id number] [place] [address] Jun, [facility] [place] [facility] [address] [id number] [place] [address] Jun, [facility] [place] [facility] [address] [id number] [place] [address] Jun, [facility] [place] [facility] [address] [id number] [place] [address] Jun, [facility] [place] [facility] [address] [id number] [place] [address] Jun, [facility] [place] [facility] [address] [id number] [place] [address] May, [facility] [place] [facility] [address] [id number] [place] [address] May, [facility] [place] [facility] [address] [id number] [place] [address] May, [facility] [place] [facility] [address] [facility] [id number] [place] [address] May, [facility] [place] [facility] [address] [id number] [place] [address] May, [facility] [place] [facility] [address] [id number] [place] [address] Apr, [facility] [place] [facility] [address] [id number] [place] [address] Apr, [facility] [place] [facility] [address] [id number] [place] [address] Apr, [facility] [place] [facility] [address] [id number] [place] [address] Apr, [facility] [place] [facility] [address] [id number] [place] [address] 23 Apr, 2014 [facility] [place] [facility] [address] [id number] [place] [address] 23 Apr, 2014 [facility] [place] [facility] [address] [id number] [place] [address] 21 Apr, 2014 [facility] [place] [facility] [address] [id number] [place] [address] 21 Apr, 2014 [facility] [place] [facility] [address] [id number] [place] [address] 20 Apr, 2014 [facility] [place] [facility] [address] [id number] [place] [address] 20 Apr, 2014 [facility] [place] [facility] [address] [id number] [place] [address] 17 Apr, 2014 [facility] [place] [facility] [address] [id number] [place] [address] 17 Apr, 2014 [facility] [place] [facility] [address] [id number] [place] [address] 16 Apr, 2014 [facility] [place] [facility] [address] [id number] [place] [address] 16 Apr, 2014 [facility] [place] [facility] [address] [id number] [place] [address] 15 Apr, 2014 [facility] [place] [facility] [address] [id number] [place] [address] 15 Apr, 2014 [facility] [place] [facility] [address] [id number] [place] [address] 14 Apr, 2014 [facility] [place] [facility] [address] [id number] [place] [address] 14 Apr, 2014 [facility] [place] [facility] [address] [id number] [place] [address] 13 Apr, 2014 [facility] [place] [facility] [address] [id number] [place] [address] Apr, [facility] [place] [facility] [address] [id number] [place] [address] Apr, [facility] [place] [facility] [address] [id number] [place] [address] Apr, [facility] [place] [facility] [address] [id number] [place] [address] Apr, [facility] [place] [facility] [address] [id number] [place] [address] Apr, [facility] [place] [facility] [address] [id number] [place] [address] Apr, [facility] [place] [facility] [address] [id number] [place] [address] Apr, [facility] [place] [facility] [address] [id number] [place] [address] Mar, [facility] [place] [facility] [address] [id number] [place] [address] Mar, [facility] [place] [facility] [address] [id number] [place] [address] Feb, [facility] [place] [facility] [address] [id number] [place] [address] Feb, [facility] [place] [facility] [address] [id number] [place] [address] Feb, [facility] [place] [facility] [address] [id number] [place] [address] Feb, [facility] [place] [facility] [address] [id number] [place] [address] Jan, [facility] [place] [facility] [address] [id number] [place] [address] Jan, [facility] [place] [facility] [address] [id number] [place] [address] Jan, [facility] [place] [facility] [address] [id number] [place] [address] Jan, [facility] [place] [facility] [address] [id number] [place] [address] Jan, [facility] [place] [facility] [address] [id number] [place] [address] Jan, [facility] [place] [facility] [address] [id number] [place] [address] Jan, [facility] [place] [facility] [address] [id number] [place] [address] Jan, [facility] [place] [facility] [address] [id number] [place] [address] Jan, [facility] [place] [facility] [address] [id number] [place] [address] Jan, [facility] [place] [facility] [address] [id number] [place] [address] Jan, [facility] [place] [facility] [address] [id number] [place] [address] Dec, [facility] [place] [facility] [address] [id number] [place] [address] Dec, [facility] [place] [facility] [address] [id number] [place] [address] Dec, [facility] [place] [facility] [address] [id number] [place] [address] Dec, [facility] [place] [facility] [address] [id number] [place] [address] November, [facility] [place] [facility] [address] [id number] [place] [address] November, [facility] [place] [facility] [address] [id number] [place] [address] November, [facility] [place] [facility] [address] [id number] [place] [address] November, [facility] [address] [id number] [place] [address] November, [facility] [place] [facility] [address] [id number] [place] [address] November, [facility] [place] [facility] [address] [id number] [place] [address] November, [facility] [place] [facility] [address] [id number] [place] [address] November, [facility] [place] [facility] [address] [id number] [place] [address] November, [facility] [place] [facility] [address] [id number] [place] [address] November, [facility] [place] [facility] [address] [id number] [place] [address] November, [facility] [place] [facility] [address] [id number] [place] [address] Oct, [facility] [place] [facility] [address] [id number] [place] [address] Oct, [facility] [place] [facility] [address] [id number] [place] [address] Oct, [facility] [place] [facility] [address] [id number] [place] [address] Oct, [facility] [place] [facility] [address] [id number] [place] [address] Oct, [facility] [place] [facility] [address] [id number] [place] [address] Oct, [facility] [place] [facility] [address] [id number] [place] [address] Sep, [facility] [place] [facility] [address] [id number] [place] [address] Sep, [facility] [place] [facility] [address] [id number] [place] [address] Sep, [facility] [place] [facility] [address] [id number] [place] [address] Sep, [facility] [place] [facility] [address] [id number] [place] [address] Sep, [facility] [place] [facility] [address] [id number] [place] [address] Sep, [facility] [place] [facility] [address] [id number] [place] [address] Sep, [facility] [place] [facility] [address] [id number] [place] [address] Sep, [facility] [place] [facility] [address] [id number] [place] [address] Sep, [facility] [place] [facility] [address] [id number] [place] [address] Sep, [facility] [place] [facility] [address] [id number] [place] [address] Sep, [facility] [place] [facility] [address] [id number] [place] [address] Aug, [facility] [place] [facility] [address] [facility] [id number] [place] [address] Aug, [facility] [place] [facility] [address] [id number] [place] [address] Aug, [facility] [place] [facility] [address] [facility] [id number] [place] [address] Aug, [facility] [place] [facility] [address] [id number] [place] [address] Jul, [facility] [place] [facility] [address] [id number] [place] [address] Jul, [facility] [place] [facility] [address] [id number] [place] [address] Jul, [facility] [place] [facility] [address] [id number] [place] [address] Jul, [facility] [place] [facility] [address] [id number] [place] [address] Jul, [facility] [place] [facility] [address] [id number] [place] [address] Jul, [facility] [place] [facility] [address] [id number] [place] [address] Jul, [facility] [place] [facility] [address] [id number] [place] [address] Jul, [facility] [place] [facility] [address] [id number] [place] [address] Jul, [facility] [place] [facility] [address] [id number] [place] [address] Jul, [facility] [place] [facility] [address] [id number] [place] [address] Jul, [facility] [place] [facility] [address] [id number] [place] [address] Jul, [facility] [place] [facility] [address] [id number] [place] [address] Jul, [facility] [place] [facility] [address] [id number] [place] [address] Jun, [facility] [place] [facility] [address] [id number] [place] [address] Jun, [facility] [place] [facility] [address] [id number] [place] [address] Jun, [facility] [place] [facility] [address] [id number] [place] [address] Jun, [facility] [place] [facility] [address] [id number] [place] [address] Jun, [facility] [place] [facility] [address] [id number] [place] [address] Jun, [facility] [address] [id number] [place] [address] Jun, [facility] [address] [id number] [place] [address] Jun, [facility] [address] [id number] [place] [address] Jun, [facility] [address] [id number] [place] [address] Jun, [facility] [address] [id number] [place] [address] Jun, [facility] [address] [id number] [place] [address] Jun, [facility] [address] [id number] [place] [address] Jun, [facility] [place] [facility] [address] [id number] [place] [address] Jun, [facility] [address] [id number] [place] [address] Jun, [facility] [place] [facility] [address] [id number] [place] [address] Jun, [facility] [address] [id number] [place] [address] Jun, [facility] [place] [facility] [address] [id number] [place] [address] Jun, [facility] [place] [facility] [address] [id number] [place] [address] Jun, [facility] [place] [facility] [address] [id number] [place] [address] Jun, [facility] [place] [facility] [address] [id number] [place] [address] Jun, [facility] [place] [facility] [address] [id number] [place] [address] Jun, [facility] [address] [id number] [place] [address] Jun, [facility] [place] [facility] [address] [id number] [place] [address] May, [facility] [address] [id number] [place] [address] May, [facility] [place] [facility] [address] [id number] [place] [address] Apr, [facility] [address] [facility] [id number] [id number] Mar, [facility] [place] [facility] [address] [id number] [place] [address] Feb, [facility] [place] [facility] [address] [id number] [place] [address] Feb, [facility] [place] [facility] [address] [id number] [place] [address] Jan, [facility] [place] [facility] [address] [id number] [place] [address] Jan, [facility] [address] [facility] [id number] [place] [address] November, [facility] [place] [facility] [address] [id number] [place] [address] November, [facility] [place] [facility] [address] [id number] [place] [address] Oct, [facility] [place] [facility] [address] [id number] [place] [address] Oct, [facility] [address] [facility] [id number] [id number] November, [facility] [place] [facility] [address] [id number] [place] [address] May, [facility] [place] [facility] [address] [facility] [id number] [place] [address] Feb, IMMUNIZATIONS No Known Immunizations SOCIAL HISTORY Never Assessed REASON FOR VISIT [place] [place] C[place] VITAL SIGNS MEDICATIONS Unknown [...] anxiety, depression Medical History CT abdomen at [facility] 09-14-16 shows a ventral hernia [...] 2010 Hospitalization History past surgeries [place] [facility] [place]
--- OUTSIDE RECORDS SUMMARY | 2019-02-08 10:31 | XMS REPORT ---
Author Author Migration, Doctor Organization [facility] Address Unknown Phone Unavailable Care Team Providers Care Yarn Mercerizer Operator Name Role Phone Migration, Doctor Unavailable Unavailable PROBLEMS Type Condition ICD9-CM Code NOT31-KE Code Onset Dates Condition Status SNOMED Code Problem Essential hypertension with goal blood pressure less than 130\/80 I10 Active 15675398 Problem Hyperlipidemia E78.5 Active 34603941 Problem Fatty liver disease, nonalcoholic K76.0 Active 551336040 Problem Psoriasis vulgaris L40.0 Active 430214535 Problem Psoriasis L40.9 Active 1278867 Problem Dysthymia F34.1 Active 25681295 Problem Metabolic syndrome X E88.81 Active 806121540 Problem Substance abuse F19.10 Active 42129904 Problem Emotional lability R45.86 Active 16539180 Problem Dental caries K02.9 Active 60178133 Problem High risk medication use Z79.899 Active 109704283 Problem Pulmonary emphysema, unspecified emphysema type J43.9 Active 68510819 Problem Heartburn R12 Active 70368441 Problem Weight loss R63.4 Active 058068551 Problem Colon cancer screening Z12.11 Active 848751537 Problem Mixed hyperlipidemia E78.2 Active 244439975 Problem Breast cancer screening Z12.39 Active 927274911 Problem Lumbago with sciatica, left side M54.42 Active 426691554 Problem Colonoscopy refused Z53.20 Active 644769457 Problem Other chronic pain G89.29 Active 66703105 Problem Lumbago with sciatica, right side M54.41 Active 035735813031707 Problem Urinary frequency R35.0 Active 026503576 Problem Hematuria, unspecified type R31.9 Active 52693328 Problem Serum calcium elevated E83.52 Active 30898688 Problem Epigastric abdominal pain R10.13 Active 72130947 Problem 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 Active 997522171 Problem Hypertension I10 Active 81457081 Problem Elevated serum GGT level R74.8 Active 366998001 Problem Gynecologic exam normal Z01.419 Active 498569367 Problem Vitamin D deficiency E55.9 Active 36894609 Problem Hypomagnesemia E83.42 Active 100882280 Problem Atopic dermatitis L20.9 Active 16251596 Problem Hypoglycemia E16.2 Active 352231118 ALLERGIES No Information ENCOUNTERS Encounter Location Date Diagnosis [facility] [address] [id number], [place] [id number] November, [facility] [address] [id number], [place] [id number] Oct, High risk medication use Z79.899 [facility] [address] [id number][place] [id number] Aug, [facility] [address] [id number], [place] [address] Jul, [facility] [address] [id number], [place] [address] Jul, Serum calcium elevated E83.52 and Vitamin D deficiency E55.9 [email or web address] [address] [id number], [place] [id number] Jul, [facility] [place] [address] AVE [id number], [place] [id number] Jul, Hypertension I10 ; Hypoglycemia E16.2 ; Colon cancer screening Z12.11 and Left upper quadrant pain R10.12 [email or web address] [address] [id number], [place] [address] Jul, Atopic dermatitis L20.9 [email or web address] [address] [id number], [place] 412308348 May, Serum calcium elevated E83.52 ; Fatty liver disease, nonalcoholic K76.0 ; Hypomagnesemia E83.42 ; Vitamin D deficiency E55.9 and Elevated liver enzymes R74.8 [email or web address] [id number], [place] [address] Apr, High risk medication use Z79.899 ; Dysthymia F34.1 ; Fatty liver disease, nonalcoholic K76.0 ; Serum calcium elevated E83.52 and Viral gastroenteritis A08.[address] [facility] [address] [id number] [place] [address] Feb, [facility] [address] [id number], [place] [address]8733[address] November, Serum calcium elevated E83.52 and Elevated serum GGT level R74.[address] [facility] [address] [id number], [place] [address] November, Fatty liver disease, nonalcoholic K76.[address] [facility] [address] [id number], [place] 66[address]240[address] November, High risk medication use Z79.899 ; Hematuria, unspecified type R31.9 ; Dental caries K02.9 ; Urinary frequency R35.0 and Substance abuse F19.[address] [facility] [address] [id number], [place] [address] Sep, [facility] [address] [id number], [place] 368[address] Aug, [facility] [address] [id number], [place] 70[address] Aug, [facility] [address] [id number], [place] [address]295[address] Jul, [facility] [address] [id number], [place] 120233980 Jun, [facility] [address] [id number], [place] 720336154 Jun, Hematuria, unspecified type R31.9 [facility] [address] [id number], [place] [address] May, Lumbago with sciatica, left side M54.42 and Hematuria, unspecified type R31.[address] [facility] [address] [id number], [place] 7539385[address] May, Hematuria, unspecified type R31.[address] [facility] [address] [id number], [place] 799806129 Apr, High risk medication use Z79.899 ; Lumbago with sciatica, left side M54.42 ; Lumbago with sciatica, right side M54.41 ; Other chronic pain G89.29 ; Emotional lability R45.86 and Colonoscopy refused Z53.[address] [facility] [address] [id number], [place] 23369[address]84 Feb, [facility] [address] [id number], [place] 248302356 Feb, [facility] [address] [facility] [id number], [place] [address] Jan, [facility] [address] [id number], [place] 72040[address]62 Jan, Psoriasis vulgaris L40.0 [facility] [address] [id number], [place] 312557086 Jan, High risk medication use Z79.899 [facility] [address] [id number], [place] 309775181 Dec, Psoriasis vulgaris L40.0 [facility] [address] [id number], [place] 216944168 Oct, Mixed hyperlipidemia E78.2 and High risk medication use Z79.899 [facility] [address] [id number], [place] 0412[address] Oct, [facility] [address] [id number], [place] 119523644 Oct, [facility] [address] [id number], [place] 167438472 Oct, Hyperlipidemia E78.5 and Weight loss R63.[address] [facility] [address] [id number], [place] 347327165 Oct, Gynecologic exam normal Z01.419 ; Breast cancer screening Z12.39 ; Weight loss R63.4 and Colon cancer screening Z12.[address] [facility] [address] [id number] [place] [address] Jul, [facility] [address] [id number], [place] 334855515 Jul, High risk medication use Z79.[address] [facility] [address] [id number], [place] 672264182 Jul, Metabolic syndrome X E88.81 ; Elevated serum GGT level R74.8 ; Dysthymia F34.1 and 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 [facility] [address] [id number], [place] [address]677[address] Jun, [facility] [address] [id number], [place] 8034566[address] May, [facility] [address] [id number], [place] 7633196[address] May, [facility] [address] [id number], [place] 137110052 May, High risk medication use Z79.[address] [facility] [address] [id number], [place] 303747305 May, [facility] [address] [id number], [place] 402365059 May, Psoriasis vulgaris L40.0 and Other intermediate (current) drug therapy Z79.[address] [facility] [address] [id number], [place] [id number] Mar, Hyperlipidemia E78.[address] [facility] [address] [id number], [place] 180264742 Mar, [facility] [address] [id number], [place] 827259485 Mar, [facility] [address] [id number], [place] 518182457 Mar, Fatty liver disease, nonalcoholic K76.0 and Hyperlipidemia E78.[address] [facility] [address] [id number] [place] [address] Mar, [facility] [address] [id number] [place] 7264[address] Mar, Fatty liver disease, nonalcoholic K76.0 ; Psoriasis L40.9 and Hyperlipidemia E78.[address] [facility] [address] [id number] [place] 339220067 Mar, [facility] [address] [id number] [place] [address] Feb, [facility] [address] [id number], [place] 841073034 Feb, [facility] [address] [id number], [place] 697359365 Jan, [facility] [address] [id number], [place] 554907556 Dec, [facility] [address] [id number], [place] 376258691 Dec, [facility] [address] [facility] [id number], [place] [address] November, [facility] [address] [id number], [place] 760673119 November, [facility] [address] [id number], [place] 761889099 Oct, [facility] [address] [id number], [place] 061802806 Oct, Fatty liver disease, nonalcoholic K76.0 and Encounter for immunization Z23 [facility] [facility] [address] [facility] [id number], [place] [address] Oct, [facility] [address] [id number], [place] 944523011 Sep, Fatty liver disease, nonalcoholic K76.[address] [facility] [address] [id number], [place] 748449942 Sep, Fatty liver disease, nonalcoholic K76.0 ; High risk medication use Z79.899 ; Emotional lability R45.86 ; Hyperlipidemia E78.5 and Essential hypertension with goal blood pressure less than 130\/80 I10 [facility] [place] [address] [facility] [id number] [place] [address] Sep, [facility] [address] [address] [id number], [place] 235039076 Aug, Mixed hyperlipidemia E78.2 and Heartburn R12 [facility] [address] [id number], [place] 847673835 Aug, High risk medication use Z79.899 ; Emotional lability R45.86 ; Pulmonary emphysema, unspecified emphysema type J43.9 and Heartburn R12 [facility] [address] [id number], [place] 371398578 Jul, [facility] [address] [id number], [place] 549479414 Jul, [facility] [address] [address] [id number], [place] 208636886 Jun, [facility] [address] [id number], [place] 498391364 May, Right upper quadrant abdominal pain R10.11 and Fatty liver K76.0 [facility] [address] [id number], [place] 506430111 Apr, Elevated AFP R77.2 ; Fatty liver K76.0 ; Unspecified cirrhosis of liver K74.60 ; High risk medication use Z79.899 ; Anhedonia R45.84 and Psoriasis L40.9 [facility] [address] [id number], [place] 754158536 Apr, [facility] [address] [id number], [place] 965961165 Apr, Elevated liver enzymes R74.[address] [facility] [address] [id number], [place] 864481229 Apr, Abdominal pain, left lower quadrant R10.32 ; Mixed hyperlipidemia E78.2 and Hyperlipidemia 272.4 [facility] [address] [id number], [place] [id number] 09 Apr, 2015 Encounter for routine gynecological examination Z01.419 and Breast cancer screening Z12.39 [facility] [address] [id number], [place] 530624270 Apr, Abdominal pain, left lower quadrant R10.32 ; Mixed hyperlipidemia E78.2 and Lumbago M54.5 [facility] [address] [id number], [place] 619790553 Mar, Psoriasis 696.1 ; Hyperlipidemia 272.4 and Chronic pain 338.29 [facility] Sarmiento[address] [place] [address] AVE [id number], [place] 803031492 Mar, [facility] [address] [id number], [place] 191144685 Mar, [facility] [address] [place] [address] AVE [id number], [place] 318522228 Mar, Rash and nonspecific skin eruption 782.1 [facility] [address] [id number], [place] 688827900 Feb, Dermatitis 692.9 and Thoracic or lumbosacral neuritis or radiculitis, unspecified 724.4 [facility] [address] [id number], [place] 539341265 Feb, Dermatitis 692.9 and Follow-up examination V67.9 [facility] [address] [id number], [place] 317383562 Jan, [facility] [address] [id number], [place] 220677577 Jan, Allergic dermatitis 692.9 [facility] [address] [id number], [place] 596782693 Jan, Rash and nonspecific skin eruption 782.[address] [facility] [address] [id number], [place] 487572988 Jan, [facility] [address] [id number], [place] 852850573 Jan, Dermatitis 692.9 and Environmental allergies V15.[address] [facility] [address] [id number], [place] 770473360 Dec, [facility] [address] [id number], [place] 055496002 Dec, [facility] [address] [id number], [place] 033707795 Dec, [facility] [address] [id number], [place] [id number] November, [facility] [address] [id number], [place] 699875885 November, Muscle spasm 728.85 [facility] [address]00565100[place] [address] Oct, [facility] [id number] [place] [address] Oct, [facility] [address]00565100[place], [place] [address] Sep, [facility] [address] [id number], [place] [address] Sep, [facility] [address]00565100[place], [place] [address] Sep, [facility] [id number] [place] [address] Sep, [facility] [address] [id number], [place] [address] Sep, [facility] [id number] [place] [address] Sep, [facility] [place] [facility] [address] [id number] [place] [address] 16 Sep, 2014 [facility] [place] [facility] [address] [id number] [place] [address] 16 Sep, 2014 [facility] [place] [facility] [address] [id number] [place] [address] Aug, [facility] [place] [facility] [address] [id number] [place] [address] Aug, [facility] [place] [facility] [address] [id number] [place] [address] Jul, [facility] [place] [facility] [address] [id number] [place] [address] Jul, [facility] [place] [facility] [address] [id number] [place] [address] Jul, [facility] [place] [facility] [address] [id number] [place] [address] Jul, [facility] [place] [facility] [address] [id number] [place] [address] Jul, [facility] [place] [facility] [address] [id number] [place] [address] Jul, [facility] [place] [facility] [address] [id number] [place] [address] 18 Jun, 2014 [facility] [place] [facility] [address] [id number] [place] [address] Jun, [facility] [place] [facility] [address] [id number] [place] [address] Jun, [facility] [place] [facility] [address] [id number] [place] [address] Jun, [facility] [place] [facility] [address] [id number] [place] [address] 09 Jun, 2014 [facility] [place] [facility] [address] [id number], [place] [address] Jun, [facility] [place] [facility] [address] [id number] [place] [address] Jun, [facility] [place] [facility] [address] [id number] [place] [address] Jun, [facility] [place] [facility] [address] [id number] [place] [address] May, [facility] [place] [facility] [address] [id number] [place] [address] May, [facility] [place] [facility] [address] [id number] [place] [address] May, [facility] [place] [facility] [address] [id number] [place] [address] May, [facility] [place] [facility] [address] [id number] [place] [address] May, [facility] [place] [facility] [address] [id number] [place] [address] Apr, [facility] [place] [facility] [address] [id number] [place] [address] Apr, [facility] [place] [facility] [address] [id number] [place] [address] Apr, [facility] [place] [facility] [address] [id number], [place] [address] Apr, [facility] [place] [facility] [address] [id number], [place] [address] Apr, [facility] [place] [facility] [address] [id number] [place] [address] Apr, [facility] [place] [facility] [address] [id number] [place] [address] Apr, [facility] [place] [facility] [address] [id number] [place] [address] Apr, [facility] [place] [facility] [address] [id number] [place] [address] 20 Apr, 2013 [facility] [place] [facility] [address] [id number] [place] [address] 20 Apr, 2013 [facility] [place] [facility] [address] [id number] [place] [address] 17 Apr, 2013 [facility] [place] [facility] [address] [id number] [place] [address] 17 Apr, 2013 [facility] [place] [facility] [address] [id number] [place] [address] 16 Apr, 2013 [facility] [place] [facility] [address] [id number] [place] [address] 16 Apr, 2013 [facility] [place] [facility] [address] [id number] [place] [address] 15 Apr, 2013 [facility] [place] [facility] [address] [id number] [place] [address] 15 Apr, 2013 [facility] [place] [facility] [address] [id number] [place] [address] 14 Apr, 2014 [facility] [place] [facility] [address] [id number] [place] [address] 14 Apr, 2014 [facility] [place] [facility] [address] [id number] [place] [address] 13 Apr, 2014 [facility] [place] [facility] [address] [id number] [place] [address] 13 Apr, 2013 [facility] [place] [facility] [address] [id number] [place] [address] 06 Apr, 2013 [facility] [place] [facility] [address] [id number] [place] [address] 06 Apr, 2013 [facility] [place] [facility] [address] [id number] [place] [address] 05 Apr, 2013 [facility] [place] [facility] [address] [id number] [place] [address] Apr, [facility] [place] [facility] [address] [id number] [place] [address] Apr, [facility] [place] [facility] [address] [id number] [place] [address] Apr, [facility] [place] [facility] [address] [id number] [place] [address] Mar, [facility] [place] [facility] [address] [id number] [place] [address] Mar, [facility] [place] [facility] [address] [id number] [place] [address] Feb, [facility] [place] [facility] [address] [id number] [place] [address] Feb, [facility] [place] [facility] [address] [id number] [place] [address] Feb, [facility] [place] [facility] [address] [id number] [place] [address] Feb, [facility] [place] [facility] [address] [id number] [place] [address] Jan, [facility] [place] [facility] [address] [id number] [place] [address] Jan, [facility] [place] [facility] [address] [id number] [place] [address] Jan, [facility] [place] [facility] [address] [id number] [place] [address] Jan, [facility] [place] [facility] [address] [id number] [place] [address] Jan, [facility] [place] [facility] [address] [id number] [place] [address] Jan, [facility] [place] [facility] [address] [id number] [place] [address] Jan, [facility] [place] [facility] [address] [id number] [place] [address] Jan, [facility] [place] [facility] [address] [id number] [place] [address] Jan, [facility] [place] [facility] [address] [id number] [place] [address] Jan, [facility] [place] [facility] [address] [id number] [place] [address] Jan, [facility] [place] [facility] [address] [id number] [place] [address] Dec, [facility] [place] [facility] [address] [id number] [place] [address] Dec, [facility] [place] [facility] [address] [id number] [place] [address] Dec, [facility] [place] [facility] [address] [id number] [place] [address] Dec, [facility] [place] [facility] [address] [id number] [place] [address] November, [facility] [place] [facility] [address] [id number] [place] [address] November, [facility] [place] [facility] [address] [id number] [place] [address] November, [facility] [place] [facility] [address] [id number] [place] [address] November, [facility] [place] [facility] [address] [id number] [place] [address] November, [facility] [place] [facility] [address] [id number] [place] [address] November, [facility] [place] [facility] [address] [id number] [place] [address] November, [facility] [place] [facility] [address] [id number] [place] [address] November, [facility] [place] [facility] [address] [id number] [place] [address] November, [facility] [place] [facility] [address] [id number] [place] [address] November, [facility] [place] [facility] [address] [id number] [place] [address] November, [facility] [place] [facility] [address] [id number] [place] [address] Oct, [facility] [place] [facility] [address] [id number] [place] [address] Oct, [facility] [place] [facility] [address] [id number] [place] [address] Oct, [facility] [place] [facility] [address] [id number] [place] [address] Oct, [facility] [place] [facility] [address] [id number] [place] [address] Oct, [facility] [place] [facility] [address] [id number] [place] [address] Oct, [facility] [place] [facility] [address] [id number] [place] [address] 28 Sep, 2013 [facility] [place] [facility] [address] [id number] [place] [address] Sep, [facility] [place] [facility] [address] [id number] [place] [address] Sep, [facility] [place] [facility] [address] [id number] [place] [address] Sep, [facility] [place] [facility] [address] [id number] [place] [address] Sep, [facility] [place] [facility] [address] [id number] [place] [address] 18 Sep, 2013 [facility] [place] [facility] [address] [id number] [place] [address] Sep, [facility] [place] [facility] [address] [id number] [place] [address] Sep, [facility] [place] [facility] [address] [id number] [place] [address] Sep, [facility] [place] [facility] [address] [id number] [place] [address] Sep, [facility] [place] [facility] [address] [id number] [place] [address] Sep, [facility] [place] [facility] [address] [id number] [place] [address] Aug, [facility] [place] [facility] [address] [id number] [place] [address] Aug, [facility] [place] [facility] [address] [id number] [place] [address] Aug, [facility] [place] [facility] [address] [id number] [place] [address] Aug, [facility] [place] [facility] [address] [id number] [place] [address] Jul, [facility] [place] [facility] [address] [id number] [place] [address] Jul, [facility] [place] [facility] [address] [id number] [place] [address] Jul, [facility] [place] [facility] [address] [id number] [place] [address] Jul, [facility] [place] [facility] [address] [id number] [place] [address] Jul, [facility] [place] [facility] [address] [id number] [place] [address] Jul, [facility] [place] [facility] [address] [id number] [place] [address] Jul, [facility] [place] [facility] [address] [id number] [place] [address] Jul, [facility] [address] [id number] [place] [address] Jul, [facility] [address] [id number] [place] [address] Jul, [facility] [address] [id number] [place] [address] Jul, [facility] [address] [id number] [place] [address] Jul, [facility] [address] [id number] [place] [address] Jul, [facility] [address] [id number] [place] [address] Jun, [facility] [address] [id number] [place] [address] Jun, [facility] [address] [id number] [place] [address] Jun, [facility] [address] [id number] [place] [address] Jun, [facility] [address] [id number] [place] [address] Jun, [facility] [address] [id number] [place] [address] Jun, [facility] [address] [id number] [place] [address] Jun, [facility] [place] [facility] [address] [id number] [place] [address] Jun, [facility] [address] [id number] [place] [address] Jun, [facility] [address] [id number] [place] [address] Jun, [facility] [address] [id number] [place] [address] Jun, [facility] [place] [facility] [address] [id number] [place] [address] Jun, [facility] [place] [facility] [address] [id number] [place] [address] Jun, [facility] [place] [facility] [address] [id number] [place] [address] Jun, [facility] [place] [facility] [address] [id number] [place] [address] Jun, [facility] [place] [facility] [address] [id number] [place] [address] Jun, [facility] [place] [facility] [address] [id number] [place] [address] Jun, [facility] [place] [facility] [address] [id number] [place] [address] Jun, [facility] [place] [facility] [address] [id number] [place] [address] Jun, [facility] [place] [facility] [address] [id number] [place] [address] Jun, [facility] [place] [facility] [address] [id number] [place] [address] Jun, [facility] [place] [facility] [address] [id number] [address] Jun, [facility] [place] [facility] [address] [id number] [place] [address] Jun, [facility] [place] [facility] [address] [id number] [place] [address] May, [facility] [place] [facility] [address] [id number], [place] [address] May, [facility] [place] [facility] [address] [id number], [place] [address] Apr, [facility] [address] [facility] [id number] [place] [id number] Mar, [facility] [place] [address] [id number] [address] Feb, [facility] [place] [address] [id number], [place] [address] Feb, [facility] [place] [id number], [place] [address] Jan, [facility] [place] [id number], [place] [address] Jan, [facility] [place] [id number], [place] [address] November, [facility] [place] [id number], [place] [address] November, [facility] [place] [id number], [place] [address] Oct, [facility] [place] [address] [id number], [place] [address] Oct, [facility] [address] [facility] [id number] [place] [id number] November, [facility] [place] [address] [id number], [place] [address] May, [facility] [place] [address] [id number], [place] [address] Feb, IMMUNIZATIONS No Known Immunizations SOCIAL HISTORY Never Assessed REASON FOR VISIT EMR-[facility] [place], [place] PLAN OF CARE VITAL SIGNS MEDICATIONS Unknown [...] anxiety, depression Medical History CT abdomen at [facility] 09-14-16 shows a ventral hernia and fatty [...]
--- OUTSIDE RECORDS SUMMARY | 2019-02-08 10:31 | XMS REPORT ---
Author Author Migration, Doctor Organization [facility] Address Unknown Phone Unavailable Care Team Providers Care Materials Handling Coordinator Name Role Phone Migration, Doctor Unavailable Unavailable PROBLEMS Type Condition ICD9-CM Code MNV03-UV Code Onset Dates Condition Status SNOMED Code Problem Essential hypertension with goal blood pressure less than 130\/80 I10 Active 40013359 Problem Hyperlipidemia E78.5 Active 76331982 Problem Fatty liver disease, nonalcoholic K76.0 Active 304890158 Problem Psoriasis vulgaris L40.0 Active 283365239 Problem Psoriasis L40.9 Active 0294818 Problem Dysthymia F34.1 Active 74476680 Problem Metabolic syndrome X E88.81 Active 716001299 Problem Substance abuse F19.10 Active 83876001 Problem Emotional lability R45.86 Active 60398863 Problem Dental caries K02.9 Active 81285357 Problem High risk medication use Z79.899 Active 583519115 Problem Pulmonary emphysema, unspecified emphysema type J43.9 Active 67593412 Problem Heartburn R12 Active 06691488 Problem Weight loss R63.4 Active 741705181 Problem Colon cancer screening Z12.11 Active 737890801 Problem Mixed hyperlipidemia E78.2 Active 522663129 Problem Breast cancer screening Z12.39 Active 183191569 Problem Lumbago with sciatica, left side M54.42 Active 444559744 Problem Colonoscopy refused Z53.20 Active 823623993 Problem Other chronic pain G89.29 Active 30357145 Problem Lumbago with sciatica, right side M54.41 Active 602207998991319 Problem Urinary frequency R35.0 Active 417571521 Problem Hematuria, unspecified type R31.9 Active 86855469 Problem Serum calcium elevated E83.52 Active 24459014 Problem Epigastric abdominal pain R10.13 Active 97764527 Problem 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 Active 494928797 Problem Hypertension I10 Active 32729159 Problem Elevated serum GGT level R74.8 Active 796974344 Problem Gynecologic exam normal Z01.419 Active 525399464 Problem Vitamin D deficiency E55.9 Active 57167972 Problem Hypomagnesemia E83.42 Active 317214564 Problem Atopic dermatitis L20.9 Active 84964498 Problem Hypoglycemia E16.2 Active 138918597 ALLERGIES No Information ENCOUNTERS Encounter Location Date Diagnosis [address] [id number], [place] [id number] November, [facility] [address] [id number], [place] [address] Oct, High risk medication use Z79.899 [facility] [address] [id number], [place] [id number] Aug, [facility] [address] [id number], [place] [id number] Jul, [facility] [address] [address] [id number], [place] [address]703[address] Jul, Serum calcium elevated E83.52 and Vitamin D deficiency E55.9 [facility] [address] [id number], [place] [address]621600[address] Jul, [facility] [address] [place] [address] AVE [id number], [place] [id number] Jul, Hypertension I10 ; Hypoglycemia E16.2 ; Colon cancer screening Z12.11 and Left upper quadrant pain R10.12 [facility] [address] [id number], [place] 121618263 Jul, Atopic dermatitis L20.9 [facility] [address] [id number], [place] [address]26710385 May, Serum calcium elevated E83.52 ; Fatty liver disease, nonalcoholic K76.0 ; Hypomagnesemia E83.42 ; Vitamin D deficiency E55.9 and Elevated liver enzymes R74.8 [facility] [address] [id number], [place] 956764125 Apr, High risk medication use Z79.899 ; Dysthymia F34.1 ; Fatty liver disease, nonalcoholic K76.0 ; Serum calcium elevated E83.52 and Viral gastroenteritis A08.[address] [facility] [address] [id number] [place] [address] Feb, [facility] [address] [id number], [place] 8638494[address] November, Serum calcium elevated E83.52 and Elevated serum GGT level R74.[address] [id number], [place] [address]770556 November, Fatty liver disease, nonalcoholic K76.[address] [facility] [address] [id number], [place] 938562012 November, High risk medication use Z79.899 ; Hematuria, unspecified type R31.9 ; Dental caries K02.9 ; Urinary frequency R35.0 and Substance abuse F19.[address] [facility] [address] [id number], [place] [address]209[address] Sep, [facility] [address] [id number], [place] 333499164 Aug, [facility] [address] [id number], [place] [id number] Aug, [facility] [address] [id number], [place] 756864424 Jul, [facility] [address] [id number], [place] [address] Jun, [facility] [address] [id number], [place] 353485080 Jun, Hematuria, unspecified type R31.9 [facility] [address] [id number], [place] [address]7970 May, Lumbago with sciatica, left side M54.42 and Hematuria, unspecified type R31.[address] [facility] [address] [id number], [place] 638567756 May, Hematuria, unspecified type R31.[address] [facility] [address] [id number], [place] 861835089 Apr, High risk medication use Z79.899 ; Lumbago with sciatica, left side M54.42 ; Lumbago with sciatica, right side M54.41 ; Other chronic pain G89.29 ; Emotional lability R45.86 and Colonoscopy refused Z53.[address] [facility] [address] [id number], [place] 116395080 Feb, [facility] [address] [id number], [place] 224616350 Feb, [facility] [address] [facility] [id number] [place] [address] Jan, [facility] [address] [id number], [place] 427660277 Jan, Psoriasis vulgaris L40.0 [facility] [address] [id number], [place] 792835289 Jan, High risk medication use Z79.899 [facility] [address] [id number], [place] 547474350 Dec, Psoriasis vulgaris L40.0 [facility] [address] [id number], [place] 852295727 Oct, Mixed hyperlipidemia E78.2 and High risk medication use Z79.899 [facility] [address] [id number], [place] 526116696 Oct, [facility] [address] [id number], [place] 148970513 Oct, [facility] [address] [id number], [place] 007324678 Oct, Hyperlipidemia E78.5 and Weight loss R63.[address] [id number], [place] 636455929 Oct, Gynecologic exam normal Z01.419 ; Breast cancer screening Z12.39 ; Weight loss R63.4 and Colon cancer screening Z12.[address] [facility] [address] [id number] [place] [address]4985[address] Jul, [facility] [address] [id number], [place] 340194875 Jul, High risk medication use Z79.[address] [id number], [place] 560408241 Jul, Metabolic syndrome X E88.81 ; Elevated serum GGT level R74.8 ; Dysthymia F34.1 and 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 [facility] [address] [id number], [place] 379911285 Jun, [facility] [address] [id number], [place] 790454[address] May, [facility] [address] [id number], [place] 729558359 May, [facility] [address] [id number], [place] 397602796 May, High risk medication use Z79.[address] [id number], [place] 462131277 May, [facility] [address] [id number], [place] 856200801 May, Psoriasis vulgaris L40.0 and Other chcf (current) drug therapy Z79.[address] [id number], [place] 208478110 Mar, Hyperlipidemia E78.[address] [facility] [id number], [place] 146731490 Mar, [facility] [address] [id number], [place] 4450347[address] Mar, [facility] [address] [id number], [place] 307499099 Mar, Fatty liver disease, nonalcoholic K76.0 and Hyperlipidemia E78.[address] [facility] [id number] [place] [address] Mar, [facility] [address] [id number] [place] 6855[address]884 Mar, Fatty liver disease, nonalcoholic K76.0 ; Psoriasis L40.9 and Hyperlipidemia E78.[address] [facility] [address] [id number] [place] [address]307[address] Mar, [facility] [address] [id number][place] 558090111 Feb, [facility] [address] [id number], [place] 840382795 Feb, [facility] [address] [id number], [place] 078763306 Jan, [facility] [address] [id number], [place] 339545460 Dec, [facility] [address] [id number], [place] 191162717 Dec, [facility] [address] [facility] [id number] [place] [address] November, [facility] [address] [id number], [place] 616851629 November, [facility] [address] [id number], [place] 545049696 Oct, [facility] [address] [id number], [place] 492125708 Oct, Fatty liver disease, nonalcoholic K76.0 and Encounter for immunization Z23 [facility] [place] [facility] [address] [facility] [id number] [place] [address] Oct, [facility] [address] [id number], [place] 857904976 Sep, Fatty liver disease, nonalcoholic K76.[address] [id number], [place] 433443282 Sep, Fatty liver disease, nonalcoholic K76.0 ; High risk medication use Z79.899 ; Emotional lability R45.86 ; Hyperlipidemia E78.5 and Essential hypertension with goal blood pressure less than 130\/80 I10 [facility] [place] [address] [facility] [id number] [place] [address] Sep, [facility] [address] [id number], [place] 674725400 Aug, Mixed hyperlipidemia E78.2 and Heartburn R12 [facility] [address] [id number], [place] 546324455 Aug, High risk medication use Z79.899 ; Emotional lability R45.86 ; Pulmonary emphysema, unspecified emphysema type J43.[address] [facility] [address] [id number], [place] 412749580 Jul, [facility] [address] [id number], [place] 124795[address] Jul, [facility] [address] [id number], [place] 638403037 Jun, [facility] [address] [id number], [place] 420436982 May, Right upper quadrant abdominal pain R10.11 and Fatty liver K76.0 [facility] [address] [id number], [place] 698791736 Apr, Elevated AFP R77.2 ; Fatty liver K76.0 ; Unspecified cirrhosis of liver K74.60 ; High risk medication use Z79.899 ; Anhedonia R45.84 and Psoriasis L40.9 [facility] [address] [id number], [place] 226580618 Apr, [facility] [address] [id number], [place] 297849562 Apr, Elevated liver enzymes R74.8 [facility] [address] [id number], [place] 034550117 Apr, Abdominal pain, left lower quadrant R10.32 ; Mixed hyperlipidemia E78.2 and Hyperlipidemia 272.4 [facility] [address] [id number], [place] 168859435 09 Apr, 2015 Encounter for routine gynecological examination Z01.419 and Breast cancer screening Z12.39 [facility] [address] [id number], [place] 071831176 Apr, Abdominal pain, left lower quadrant R10.32 ; Mixed hyperlipidemia E78.2 and Lumbago M54.5 [facility] [address] [id number], [place] 071385108 Mar, Psoriasis 696.1 ; Hyperlipidemia 272.4 and Chronic pain 338.29 [facility] [address] [place] [address] AVE [id number], [place] 719701044 Mar, [facility] [address] [address] [id number], [place] 649828929 Mar, [facility] [address] [place] [address] AVE [id number], [place] 893859598 Mar, Rash and nonspecific skin eruption 782.1 [facility] [address] [id number], [place] 513732419 Feb, Dermatitis 692.9 and Thoracic or lumbosacral neuritis or radiculitis, unspecified 724.4 [facility] [address] [address] [id number], [place] 744426718 Feb, Dermatitis 692.9 and Follow-up examination V67.9 [facility] [address] [id number], [place] 889252776 Jan, [facility] [address] [id number], [place] 302295066 Jan, Allergic dermatitis 692.9 [facility] [address] [id number], [place] 280640120 Jan, Rash and nonspecific skin eruption 782.[address] [facility] [address] [id number], [place] 278302651 Jan, [facility] [address] [id number], [place] 550016077 Jan, Dermatitis 692.9 and Environmental allergies V15.[address] [facility] [address] [id number], [place] 294120800 Dec, [facility] [address] [id number], [place] 328643241 Dec, [facility] [address] [id number], [place] 048961010 Dec, [facility] [address] [id number], [place] 941679907 November, [facility] [address] [id number], [place] 651561485 November, Muscle spasm 728.85 [facility] [address]00565100[place] [address] Oct, [facility] [address] [place] [id number] [place] [address] Oct, [facility] [address]00565100[place] [address] Sep, [facility] [address] [id number] [place] [address] Sep, [facility] [address]00565100[address] [place] [address] Sep, [facility] [id number] [place] [address] Sep, [facility] [address] [id number] [place] [address] Sep, [facility] [id number] [place] [address] Sep, [facility] [place] [facility] [address] [id number] [place] [address] 16 Sep, 2014 [facility] [place] [facility] [address] [id number] [place] [address] 16 Sep, 2014 [facility] [place] [facility] [address] [id number] [place] [address] Aug, [facility] [place] [facility] [address] [id number] [place] [address] Aug, [facility] [place] [facility] [address] [id number] [place] [address] Jul, [facility] [place] [facility] [address] [id number] [place] [address] Jul, [facility] [place] [facility] [address] [id number] [place] [address] Jul, [facility] [place] [facility] [address] [id number] [place] [address] Jul, [facility] [place] [facility] [address] [id number] [place] [address] Jul, [facility] [place] [facility] [address] [id number] [place] [address] Jul, [facility] [place] [facility] [address] [id number] [place] [address] 18 Jun, 2014 [facility] [place] [facility] [address] [id number] [place] [address] Jun, [facility] [place] [facility] [address] [id number] [place] [address] Jun, [facility] [place] [facility] [address] [id number] [place] [address] Jun, [facility] [place] [facility] [address] [id number] [place] [address] 09 Jun, 2014 [facility] [place] [facility] [address] [id number] [place] [address] Jun, [facility] [place] [facility] [address] [id number] [place] [address] Jun, [facility] [place] [facility] [address] [id number] [place] [address] Jun, [facility] [place] [facility] [address] [id number] [place] [address] May, [facility] [place] [facility] [address] [id number] [place] [address] May, [facility] [place] [facility] [address] [id number] [place] [address] May, [facility] [place] [facility] [address] [id number] [place] [address] May, [facility] [place] [facility] [address] [id number] [place] [address] May, [facility] [place] [facility] [address] [id number] [place] [address] Apr, [facility] [place] [facility] [address] [id number] [place] [address] Apr, [facility] [place] [facility] [address] [id number] [place] [address] Apr, [facility] [place] [facility] [address] [id number] [place] [address] Apr, [facility] [place] [facility] [address] [id number] [place] [address] Apr, [facility] [place] [facility] [address] [id number] [place] [address] Apr, [facility] [place] [facility] [address] [id number] [place] [address] Apr, [facility] [place] [facility] [address] [id number] [place] [address] Apr, [facility] [place] [facility] [address] [id number] [place] [address] 20 Apr, 2013 [facility] [place] [facility] [address] [id number] [place] [address] 20 Apr, 2013 [facility] [place] [facility] [address] [id number] [place] [address] 17 Apr, 2013 [facility] [place] [facility] [address] [id number] [place] [address] 17 Apr, 2013 [facility] [place] [facility] [address] [id number] [place] [address] 16 Apr, 2013 [facility] [place] [facility] [address] [id number] [place] [address] 16 Apr, 2013 [facility] [place] [facility] [address] [id number] [place] [address] 15 Apr, 2013 [facility] [place] [facility] [address] [id number] [place] [address] 15 Apr, 2013 [facility] [place] [facility] [address] [id number] [place] [address] 14 Apr, 2014 [facility] [place] [facility] [address] [id number] [place] [address] 14 Apr, 2014 [facility] [place] [facility] [address] [id number] [place] [address] 13 Apr, 2014 [facility] [place] [facility] [address] [id number] [place] [address] 13 Apr, 2013 [facility] [place] [facility] [address] [id number] [place] [address] 06 Apr, 2013 [facility] [place] [facility] [address] [id number] [place] [address] 06 Apr, 2013 [facility] [place] [facility] [address] [id number] [place] [address] 05 Apr, 2013 [facility] [place] [facility] [address] [id number] [place] [address] Apr, [facility] [place] [facility] [address] [id number] [place] [address] Apr, [facility] [place] [facility] [address] [id number] [place] [address] Apr, [facility] [place] [facility] [address] [id number] [place] [address] Mar, [facility] [place] [facility] [address] [id number] [place] [address] Mar, [facility] [place] [facility] [address] [id number] [place] [address] Feb, [facility] [place] [facility] [address] [id number] [place] [address] Feb, [facility] [place] [facility] [address] [id number] [place] [address] Feb, [facility] [place] [facility] [address] [id number] [place] [address] Feb, [facility] [place] [facility] [address] [id number] [place] [address] Jan, [facility] [place] [facility] [address] [id number] [place] [address] Jan, [facility] [place] [facility] [address] [id number] [place] [address] Jan, [facility] [place] [facility] [address] [id number] [place] [address] Jan, [facility] [place] [facility] [address] [id number] [place] [address] Jan, [facility] [place] [facility] [address] [id number] [place] [address] Jan, [facility] [place] [facility] [address] [id number] [place] [address] Jan, [facility] [place] [facility] [address] [id number] [place] [address] Jan, [facility] [place] [facility] [address] [id number] [place] [address] Jan, [facility] [place] [facility] [address] [id number] [place] [address] Jan, [facility] [place] [facility] [address] [id number] [place] [address] Jan, [facility] [place] [facility] [address] [id number] [place] [address] Dec, [facility] [place] [facility] [address] [id number] [place] [address] Dec, [facility] [place] [facility] [address] [id number] [place] [address] Dec, [facility] [place] [facility] [address] [id number] [place] [address] Dec, [facility] [place] [facility] [address] [id number] [place] [address] November, [facility] [place] [facility] [address] [id number] [place] [address] November, [facility] [place] [facility] [address] [id number] [place] [address] November, [facility] [place] [facility] [address] [id number] [place] [address] November, [facility] [place] [facility] [address] [id number] [place] [address] November, [facility] [place] [facility] [address] [id number] [place] [address] November, [facility] [place] [facility] [address] [id number] [place] [address] November, [facility] [place] [facility] [address] [id number] [place] [address] November, [facility] [place] [facility] [address] [id number] [place] [address] November, [facility] [place] [facility] [address] [id number] [place] [address] November, [facility] [place] [facility] [address] [id number] [place] [address] November, [facility] [place] [facility] [address] [id number] [place] [address] Oct, [facility] [place] [facility] [address] [id number] [place] [address] Oct, [facility] [place] [facility] [address] [id number] [place] [address] Oct, [facility] [place] [facility] [address] [id number] [place] [address] Oct, [facility] [place] [facility] [address] [id number] [place] [address] Oct, [facility] [place] [facility] [address] [id number] [place] [address] Oct, [facility] [place] [facility] [address] [id number] [place] [address] 28 Sep, 2013 [facility] [place] [facility] [address] [id number] [place] [address] Sep, [facility] [place] [facility] [address] [id number] [place] [address] Sep, [facility] [place] [facility] [address] [id number] [place] [address] Sep, [facility] [place] [facility] [address] [id number] [place] [address] Sep, [facility] [place] [facility] [address] [id number] [place] [address] 18 Sep, 2013 [facility] [place] [facility] [address] [id number] [place] [address] Sep, [facility] [place] [facility] [address] [id number] [place] [address] Sep, [facility] [place] [facility] [address] [id number] [place] [address] Sep, [facility] [place] [facility] [address] [id number] [place] [address] Sep, [facility] [place] [facility] [address] [id number] [place] [address] Sep, [facility] [place] [facility] [address] [id number] [place] [address] Aug, [facility] [place] [facility] [address] [id number] [place] [address] Aug, [facility] [place] [facility] [address] [id number] [place] [address] Aug, [facility] [place] [facility] [address] [id number] [place] [address] Aug, [facility] [place] [facility] [address] [id number] [place] [address] Jul, [facility] [place] [facility] [address] [id number] [place] [address] Jul, [facility] [place] [facility] [address] [id number] [place] [address] Jul, [facility] [place] [facility] [address] [id number] [place] [address] Jul, [facility] [place] [facility] [address] [id number] [place] [address] Jul, [facility] [place] [facility] [address] [id number] [place] [address] Jul, [facility] [place] [facility] [address] [id number] [place] [address] Jul, [facility] [place] [facility] [address] [id number] [place] [address] Jul, [facility] [address] [id number] [place] [address] Jul, [facility] [address] [id number] [place] [address] Jul, [facility] [address] [id number] [place] [address] Jul, [facility] [address] [id number] [place] [address] Jul, [facility] [address] [id number] [place] [address] Jul, [facility] [address] [id number] [place] [address] Jun, [facility] [address] [id number] [place] [address] Jun, [facility] [address] [id number] [place] [address] Jun, [facility] [address] [id number] [place] [address] Jun, [facility] [address] [id number] [place] [address] Jun, [facility] [address] [id number] [place] [address] Jun, [facility] [address] [id number] [place] [address] Jun, [facility] [place] [facility] [address] [id number] [place] [address] Jun, [facility] [address] [id number] [place] [address] Jun, [facility] [address] [id number] [place] [address] Jun, [facility] [address] [id number] [place] [address] Jun, [facility] [place] [facility] [address] [id number] [place] [address] Jun, [facility] [place] [facility] [address] [id number] [place] [address] Jun, [facility] [place] [facility] [address] [id number] [place] [address] Jun, [facility] [place] [facility] [address] [id number] [place] [address] Jun, [facility] [place] [facility] [address] [id number] [place] [address] Jun, [facility] [place] [facility] [address] [id number] [place] [address] Jun, [facility] [place] [facility] [address] [id number] [place] [address] Jun, [facility] [place] [facility] [address] [id number] [place] [address] Jun, [facility] [place] [facility] [address] [id number] [place] [address] Jun, [facility] [place] [facility] [address] [id number] [place] [address] Jun, [facility] [place] [facility] [address] [id number] [address] Jun, [facility] [place] [facility] [address] [id number] [place] [address] Jun, [facility] [place] [facility] [address] [id number] [place] [address] May, [facility] [place] [facility] [address] [id number] [place] [address] May, [facility] [place] [facility] [address] [id number] [place] [address] Apr, [facility] [address] [facility] [id number] [id number] Mar, [facility] [place] [address] [id number] [address] Feb, [facility] [place] [address] [id number] [address] Feb, [facility] [place] [id number] [address] Jan, [facility] [place] [id number] [address] Jan, [facility] [place] [id number] [address] November, [facility] [place] [id number] [address] November, [facility] [place] [id number] [address] Oct, [facility] [place] [address] [id number] [address] Oct, [facility] [address] [facility] [id number] [id number] November, [facility] [place] [address] [id number] [address] May, [facility] [place] [address] [id number] [address] Feb, IMMUNIZATIONS No Known Immunizations SOCIAL HISTORY Never Assessed REASON FOR VISIT EMR-[facility] PLAN OF CARE VITAL SIGNS MEDICATIONS Unknown [...] anxiety, depression Medical History CT abdomen at [facility] 09-14-16 shows a ventral hernia and [...]
--- OUTSIDE RECORDS SUMMARY | 2019-02-08 10:32 | XMS REPORT ---
Author Author Migration, Doctor Organization [facility] Address Unknown Phone Unavailable Care Team Providers Care Electronics Manufacturer Name Role Phone Migration, Doctor Unavailable Unavailable PROBLEMS Type Condition ICD9-CM Code GUC13-OJ Code Onset Dates Condition Status SNOMED Code Problem Essential hypertension with goal blood pressure less than 130\/80 I10 Active 18884304 Problem Hyperlipidemia E78.5 Active 39052532 Problem Fatty liver disease, nonalcoholic K76.0 Active 577412650 Problem Psoriasis vulgaris L40.0 Active 627275640 Problem Psoriasis L40.9 Active 7855282 Problem Dysthymia F34.1 Active 80150258 Problem Metabolic syndrome X E88.81 Active 339146954 Problem Substance abuse F19.10 Active 79022753 Problem Emotional lability R45.86 Active 38407222 Problem Dental caries K02.9 Active 32857787 Problem High risk medication use Z79.899 Active 361443395 Problem Pulmonary emphysema, unspecified emphysema type J43.9 Active 94786118 Problem Heartburn R12 Active 75113702 Problem Weight loss R63.4 Active 184566121 Problem Colon cancer screening Z12.11 Active 494223461 Problem Mixed hyperlipidemia E78.2 Active 455839708 Problem Breast cancer screening Z12.39 Active 920190825 Problem Lumbago with sciatica, left side M54.42 Active 190597325 Problem Colonoscopy refused Z53.20 Active 208692423 Problem Other chronic pain G89.29 Active 18978863 Problem Lumbago with sciatica, right side M54.41 Active [id number] Problem Urinary frequency R35.0 Active 386177073 Problem Hematuria, unspecified type R31.9 Active 06607046 Problem Serum calcium elevated E83.52 Active 89607958 Problem Epigastric abdominal pain R10.13 Active 32318564 Problem 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 Active 140813795 Problem Hypertension I10 Active 52046743 Problem Elevated serum GGT level R74.8 Active 830691220 Problem Gynecologic exam normal Z01.419 Active 089998562 Problem Vitamin D deficiency E55.9 Active 73851797 Problem Hypomagnesemia E83.42 Active 031269140 Problem Atopic dermatitis L20.9 Active 51114747 Problem Hypoglycemia E16.2 Active 462113805 ALLERGIES No Information ENCOUNTERS Encounter Location Date Diagnosis [address] [address] [id number] [id number] November, [facility] [address] [id number], [place] [address]205[address] Oct, High risk medication use Z79.899 [facility] [address] [address] [id number], [place] 485184811 Aug, [facility] [id number], [place] [address]77[address] Jul, [facility] [id number], [place] [address]258764 Jul, Serum calcium elevated E83.52 and Vitamin D deficiency E55.9 [facility] [id number], [place] [address]056[address] Jul, [facility] [place] [address] AVE [id number], [place] [address]684467[address] Jul, Hypertension I10 ; Hypoglycemia E16.2 ; Colon cancer screening Z12.11 and Left upper quadrant pain R10.12 [facility] [id number], [place] 654271804 Jul, Atopic dermatitis L20.9 [facility] [id number], [place] 348698[address] May, Serum calcium elevated E83.52 ; Fatty liver disease, nonalcoholic K76.0 ; Hypomagnesemia E83.42 ; Vitamin D deficiency E55.9 and Elevated liver enzymes R74.8 [facility] [id number], [place] [address] Apr, High risk medication use Z79.899 ; Dysthymia F34.1 ; Fatty liver disease, nonalcoholic K76.0 ; Serum calcium elevated E83.52 and Viral gastroenteritis A08.[address] [facility] [address] [id number] [place] [address] Feb, [facility] [address] [id number], [place] 714567101 November, Serum calcium elevated E83.52 and Elevated serum GGT level R74.[address] [facility] [address] [id number], [place] 9580311[address] November, Fatty liver disease, nonalcoholic K76.[address] [facility] [address] [id number], [place] 275498115 November, High risk medication use Z79.899 ; Hematuria, unspecified type R31.9 ; Dental caries K02.9 ; Urinary frequency R35.0 and Substance abuse F19.[address] [facility] [address] [id number], [place] [address]2670[address] Sep, [facility] [address] [id number], [place] [id number] Aug, [facility] [address] [id number], [place] 839197667 Aug, [facility] [address] [id number], [place] 346143718 Jul, [facility] [address] [id number], [place] [address]454228[address] Jun, [facility] [address] [id number], [place] 401340605 Jun, Hematuria, unspecified type R31.9 [facility] [address] [address] [id number], [place] 265708639 May, Lumbago with sciatica, left side M54.42 and Hematuria, unspecified type R31.[address] [facility] [address] [id number], [place] 421422182 May, Hematuria, unspecified type R31.[address] [facility] [address] [id number], [place] 672274989 Apr, High risk medication use Z79.899 ; Lumbago with sciatica, left side M54.42 ; Lumbago with sciatica, right side M54.41 ; Other chronic pain G89.29 ; Emotional lability R45.86 and Colonoscopy refused Z53.[address] [facility] [address] [id number], [place] 099232794 Feb, [facility] [address] [id number], [place] 084934294 Feb, [facility] [address] [facility] [place] [id number] [address] Jan, [facility] [address] [address] [id number], [place] 597259234 Jan, Psoriasis vulgaris L40.0 [facility] [address] [address] [id number], [place] 106619391 Jan, High risk medication use Z79.899 [facility] [address] [address] [id number], [place] 660590205 Dec, Psoriasis vulgaris L40.0 [facility] [address] [address] [id number], [place] 134138434 Oct, Mixed hyperlipidemia E78.2 and High risk medication use Z79.899 [facility] [address] [address] [id number], [place] 714391485 Oct, [facility] [address] [id number], [place] 2300729[address] Oct, [facility] [address] [address] [id number], [place] [address]8215101[address] Oct, Hyperlipidemia E78.5 and Weight loss R63.[address] [id number], [place] 479752736 Oct, Gynecologic exam normal Z01.419 ; Breast cancer screening Z12.39 ; Weight loss R63.4 and Colon cancer screening Z12.[address] [id number] [place] [address] Jul, [facility] [address] [id number], [place] 008129136 Jul, High risk medication use Z79.[address] [id number], [place] 046018617 Jul, Metabolic syndrome X E88.81 ; Elevated serum GGT level R74.8 ; Dysthymia F34.1 and 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 [id number], [place] 264927809 Jun, [facility] [address] [id number], [place] 109650936 May, [facility] [address] [id number], [place] 846088899 May, [facility] [address] [id number], [place] 9884105[address] May, High risk medication use Z79.[address] [id number], [place] 6199957[address] May, [facility] [address] [id number], [place] 900159292 May, Psoriasis vulgaris L40.0 and Other custodial (current) drug therapy Z79.[address] [id number], [place] 936712347 Mar, Hyperlipidemia E78.[address] [id number], [place] [address]368[address] Mar, [facility] [address] [id number], [place] 702387488 Mar, [facility] [address] [id number], [place] 969619456 Mar, Fatty liver disease, nonalcoholic K76.0 and Hyperlipidemia E78.[address] [id number] [place] [id number] Mar, [facility] [address] [id number] [place] [id number] Mar, Fatty liver disease, nonalcoholic K76.0 ; Psoriasis L40.9 and Hyperlipidemia E78.[address] [address] [id number] [place] [id number] Mar, [facility] [address] [id number], [place] 932537568 Feb, [facility] [address] [id number], [place] 962001233 Feb, [facility] [address] [id number], [place] 744758389 Jan, [facility] [address] [id number], [place] 080735279 Dec, [facility] [address] [id number], [place] 955856033 Dec, [facility] [address] [facility] [place] [id number] [place] [address] November, [facility] [address] [id number], [place] 852111540 November, [facility] [address] [id number], [place] 202568096 Oct, [facility] [address] [id number], [place] 369298724 Oct, Fatty liver disease, nonalcoholic K76.0 and Encounter for immunization Z23 [facility] [address] [facility] [place] [id number] [place] [address] Oct, [facility] [address] [id number], [place] 285461315 Sep, Fatty liver disease, nonalcoholic K76.[address] [id number], [place] 198477836 Sep, Fatty liver disease, nonalcoholic K76.0 ; High risk medication use Z79.899 ; Emotional lability R45.86 ; Hyperlipidemia E78.5 and Essential hypertension with goal blood pressure less than 130\/80 I10 [facility] [address] [facility] [place] [id number] [place] [address] Sep, [facility] [address] [address] [id number], [place] 005778941 Aug, Mixed hyperlipidemia E78.2 and Heartburn R12 [facility] [address] [id number], [place] 256046402 Aug, High risk medication use Z79.899 ; Emotional lability R45.86 ; Pulmonary emphysema, unspecified emphysema type J43.9 and Heartburn R12 [facility] [address] [id number], [place] 481923387 Jul, [facility] [address] [id number], [place] 883478852 Jul, [facility] [address] [address] [id number], [place] 919315390 Jun, [facility] [address] [id number], [place] 689216244 May, Right upper quadrant abdominal pain R10.11 and Fatty liver K76.0 [facility] [address] [id number], [place] 444889881 Apr, Elevated AFP R77.2 ; Fatty liver K76.0 ; Unspecified cirrhosis of liver K74.60 ; High risk medication use Z79.899 ; Anhedonia R45.84 and Psoriasis L40.9 [facility] [address] [id number], [place] 850192239 Apr, [facility] [address] [address] [id number], [place] 015190774 Apr, Elevated liver enzymes R74.8 [facility] [address] [address] [id number], [place] 435112363 Apr, Abdominal pain, left lower quadrant R10.32 ; Mixed hyperlipidemia E78.2 and Hyperlipidemia 272.4 [facility] [address] [id number], [place] 542621175 09 Apr, 2015 Encounter for routine gynecological examination Z01.419 and Breast cancer screening Z12.39 [facility] [address] [id number], [place] 579378594 Apr, Abdominal pain, left lower quadrant R10.32 ; Mixed hyperlipidemia E78.2 and Lumbago M54.5 [facility] [address] [id number], [place] 904927005 Mar, Psoriasis 696.1 ; Hyperlipidemia 272.4 and Chronic pain 338.29 [facility] Sarmiento[address] [place] [address] AVE [id number], [place] 221824623 Mar, [facility] [address] [address] [id number], [place] 739001600 Mar, [facility] [address] [place] [address] AVE [id number], [place] 672539927 Mar, Rash and nonspecific skin eruption 782.1 [facility] [address] [id number], [place] 388781048 Feb, Dermatitis 692.9 and Thoracic or lumbosacral neuritis or radiculitis, unspecified 724.4 [facility] [address] [address] [id number], [place] 928708010 Feb, Dermatitis 692.9 and Follow-up examination V67.9 [facility] [address] [id number], [place] 550486154 Jan, [facility] [address] [address] [id number], [place] 430954746 Jan, Allergic dermatitis 692.9 [facility] [address] [address] [id number], [place] 246766264 Jan, Rash and nonspecific skin eruption 782.[address] [facility] [address] [id number], [place] 056682229 Jan, [facility] [address] [id number], [place] 760163779 Jan, Dermatitis 692.9 and Environmental allergies V15.[address] [facility] [address] [id number], [place] 732694829 Dec, [facility] [address] [id number], [place] 136470303 Dec, [facility] [address] [id number], [place] 243463009 Dec, [facility] [address] [id number], [place] 519272151 November, [facility] [address] [id number], [place] 671034656 November, Muscle spasm 728.85 [facility] [address]00565100[place] [address] Oct, [facility] [address] [id number] [place] [address] Oct, [facility] [address]00565100[place] [address] Sep, [facility] [address] [id number] [address] Sep, [facility] [address]00565100[place] [address] Sep, [facility] [id number] [place] [address] Sep, [facility] [address] [id number] [address] Sep, [facility] [id number] [place] [address] Sep, [facility] [place] [facility] [address] [id number] [place] [address] 16 Sep, 2014 [facility] [place] [facility] [address] [id number] [place] [address] 16 Sep, 2014 [facility] [place] [facility] [address] [id number] [place] [address] Aug, [facility] [place] [facility] [address] [id number] [place] [address] Aug, [facility] [place] [facility] [address] [id number] [place] [address] Jul, [facility] [place] [facility] [address] [id number] [place] [address] Jul, [facility] [place] [facility] [address] [id number] [place] [address] Jul, [facility] [place] [facility] [address] [id number] [place] [address] Jul, [facility] [place] [facility] [address] [id number] [place] [address] Jul, [facility] [place] [facility] [address] [id number] [place] [address] Jul, [facility] [place] [facility] [address] [id number] [place] [address] 18 Jun, 2014 [facility] [place] [facility] [address] [id number] [place] [address] Jun, [facility] [place] [facility] [address] [id number] [place] [address] Jun, [facility] [place] [facility] [address] [id number] [place] [address] Jun, [facility] [place] [facility] [address] [id number] [place] [address] 09 Jun, 2014 [facility] [place] [facility] [address] [id number] [place] [address] Jun, [facility] [place] [facility] [address] [id number] [place] [address] Jun, [facility] [place] [facility] [address] [id number] [place] [address] Jun, [facility] [place] [facility] [address] [id number] [place] [address] May, [facility] [place] [facility] [address] [id number] [place] [address] May, [facility] [place] [facility] [address] [id number] [place] [address] May, [facility] [place] [facility] [address] [id number] [place] [address] May, [facility] [place] [facility] [address] [id number] [place] [address] May, [facility] [place] [facility] [address] [id number] [place] [address] Apr, [facility] [place] [facility] [address] [id number] [place] [address] Apr, [facility] [place] [facility] [address] [id number] [place] [address] Apr, [facility] [place] [facility] [address] [id number] [place] [address] Apr, [facility] [place] [facility] [address] [id number] [place] [address] Apr, [facility] [place] [facility] [address] [id number] [place] [address] Apr, [facility] [place] [facility] [address] [id number] [place] [address] Apr, [facility] [place] [facility] [address] [id number] [place] [address] Apr, [facility] [place] [facility] [address] [id number] [place] [address] 20 Apr, 2013 [facility] [place] [facility] [address] [id number] [place] [address] 20 Apr, 2013 [facility] [place] [facility] [address] [id number] [place] [address] 17 Apr, 2013 [facility] [place] [facility] [address] [id number] [place] [address] 17 Apr, 2013 [facility] [place] [facility] [address] [id number] [place] [address] 16 Apr, 2013 [facility] [place] [facility] [address] [id number] [place] [address] 16 Apr, 2013 [facility] [place] [facility] [address] [id number] [place] [address] 15 Apr, 2013 [facility] [place] [facility] [address] [id number] [place] [address] 15 Apr, 2013 [facility] [place] [facility] [address] [id number] [place] [address] 14 Apr, 2014 [facility] [place] [facility] [address] [id number] [place] [address] 14 Apr, 2014 [facility] [place] [facility] [address] [id number] [place] [address] 13 Apr, 2014 [facility] [place] [facility] [address] [id number] [place] [address] 13 Apr, 2013 [facility] [place] [facility] [address] [id number] [place] [address] 06 Apr, 2013 [facility] [place] [facility] [address] [id number] [place] [address] 06 Apr, 2013 [facility] [place] [facility] [address] [id number] [place] [address] 05 Apr, 2013 [facility] [place] [facility] [address] [id number] [place] [address] Apr, [facility] [place] [facility] [address] [id number] [place] [address] Apr, [facility] [place] [facility] [address] [id number] [place] [address] Apr, [facility] [place] [facility] [address] [id number] [place] [address] Mar, [facility] [place] [facility] [address] [id number] [place] [address] Mar, [facility] [place] [facility] [address] [id number] [place] [address] Feb, [facility] [place] [facility] [address] [id number] [place] [address] Feb, [facility] [place] [facility] [address] [id number] [place] [address] Feb, [facility] [place] [facility] [address] [id number] [place] [address] Feb, [facility] [place] [facility] [address] [id number] [place] [address] Jan, [facility] [place] [facility] [address] [id number] [place] [address] Jan, [facility] [place] [facility] [address] [id number] [place] [address] Jan, [facility] [place] [facility] [address] [id number] [place] [address] Jan, [facility] [place] [facility] [address] [id number] [place] [address] Jan, [facility] [place] [facility] [address] [id number] [place] [address] Jan, [facility] [place] [facility] [address] [id number] [place] [address] Jan, [facility] [place] [facility] [address] [id number] [place] [address] Jan, [facility] [place] [facility] [address] [id number] [place] [address] Jan, [facility] [place] [facility] [address] [id number] [place] [address] Jan, [facility] [place] [facility] [address] [id number] [place] [address] Jan, [facility] [place] [facility] [address] [id number] [place] [address] Dec, [facility] [place] [facility] [address] [id number] [place] [address] Dec, [facility] [place] [facility] [address] [id number] [place] [address] Dec, [facility] [place] [facility] [address] [id number] [place] [address] Dec, [facility] [place] [facility] [address] [id number] [place] [address] November, [facility] [place] [facility] [address] [id number] [place] [address] November, [facility] [place] [facility] [address] [id number] [place] [address] November, [facility] [place] [facility] [address] [id number] [place] [address] November, [facility] [place] [facility] [address] [id number] [place] [address] November, [facility] [place] [facility] [address] [id number] [place] [address] November, [facility] [place] [facility] [address] [id number] [place] [address] November, [facility] [place] [facility] [address] [id number] [place] [address] November, [facility] [place] [facility] [address] [id number] [place] [address] November, [facility] [place] [facility] [address] [id number] [place] [address] November, [facility] [place] [facility] [address] [id number] [place] [address] November, [facility] [place] [facility] [address] [id number] [place] [address] Oct, [facility] [place] [facility] [address] [id number] [place] [address] Oct, [facility] [place] [facility] [address] [id number] [place] [address] Oct, [facility] [place] [facility] [address] [id number] [place] [address] Oct, [facility] [place] [facility] [address] [id number] [place] [address] Oct, [facility] [place] [facility] [address] [id number] [place] [address] Oct, [facility] [place] [facility] [address] [id number] [place] [address] 28 Sep, 2013 [facility] [place] [facility] [address] [id number] [place] [address] Sep, [facility] [place] [facility] [address] [id number] [place] [address] Sep, [facility] [place] [facility] [address] [id number] [place] [address] Sep, [facility] [place] [facility] [address] [id number] [place] [address] Sep, [facility] [place] [facility] [address] [id number] [place] [address] 18 Sep, 2013 [facility] [place] [facility] [address] [id number] [place] [address] Sep, [facility] [place] [facility] [address] [id number] [place] [address] Sep, [facility] [place] [facility] [address] [id number] [place] [address] Sep, [facility] [place] [facility] [address] [id number] [place] [address] Sep, [facility] [place] [facility] [address] [id number] [place] [address] Sep, [facility] [place] [facility] [address] [id number] [place] [address] Aug, [facility] [place] [facility] [address] [id number] [place] [address] Aug, [facility] [place] [facility] [address] [id number] [place] [address] Aug, [facility] [place] [facility] [address] [id number] [place] [address] Aug, [facility] [place] [facility] [address] [id number] [place] [address] Jul, [facility] [place] [facility] [address] [id number] [place] [address] Jul, [facility] [place] [facility] [address] [id number] [place] [address] Jul, [facility] [place] [facility] [address] [id number] [place] [address] Jul, [facility] [place] [facility] [address] [id number] [place] [address] Jul, [facility] [place] [facility] [address] [id number] [place] [address] Jul, [facility] [place] [facility] [address] [id number] [place] [address] Jul, [facility] [place] [facility] [address] [id number] [place] [address] Jul, [facility] [address] [id number] [place] [address] Jul, [facility] [address] [id number] [place] [address] Jul, [facility] [address] [id number] [place] [address] Jul, [facility] [facility] [address] [id number] [place] [address] Jul, [facility] [address] [id number] [place] [address] Jul, [facility] [address] [id number] [place] [address] Jun, [facility] [address] [id number] [place] [address] Jun, [facility] [address] [id number] [place] [address] Jun, [facility] [address] [id number] [place] [address] Jun, [facility] [address] [id number] [place] [address] Jun, [facility] [address] [id number] [place] [address] Jun, [facility] [address] [id number] [place] [address] Jun, [facility] [place] [facility] [address] [id number] [place] [address] Jun, [facility] [address] [id number] [place] [address] Jun, [facility] [address] [id number] [place] [address] Jun, [facility] [address] [id number] [place] [address] Jun, [facility] [place] [facility] [address] [id number] [place] [address] Jun, [facility] [place] [facility] [address] [id number] [place] [address] Jun, [facility] [place] [facility] [address] [id number] [place] [address] Jun, [facility] [place] [facility] [address] [id number] [place] [address] Jun, [facility] [place] [facility] [address] [id number] [place] [address] Jun, [facility] [place] [facility] [address] [id number] [place] [address] Jun, [facility] [place] [facility] [address] [id number] [place] [address] Jun, [facility] [place] [facility] [address] [id number] [place] [address] Jun, [facility] [place] [facility] [address] [id number] [place] [address] Jun, [facility] [place] [facility] [address] [id number] [place] [address] Jun, [facility] [place] [facility] [address] [id number] [address] Jun, [facility] [place] [facility] [address] [id number] [place] [address] Jun, [facility] [place] [facility] [address] [id number] [place] [address] May, [facility] [place] [facility] [address] [id number] [address] May, [facility] [place] [facility] [address] [id number] [address] Apr, [facility] [address] [facility] [id number] [id number] Mar, [facility] [address] [id number] [address] Feb, [facility] [address] [id number] [address] Feb, [facility] [id number] [address] Jan, [facility] [id number] [address] Jan, [facility] [id number] [address] November, [facility] [id number] [address] November, [facility] [id number] [address] Oct, [facility] [address] [id number] [address] Oct, [facility] [address] [facility] [id number] [id number] November, [facility] [address] [id number] [address] May, [facility] [address] [id number] [address] Feb, IMMUNIZATIONS No Known Immunizations SOCIAL HISTORY Never Assessed REASON FOR VISIT [place] [place] VITAL SIGNS MEDICATIONS Unknown [...] anxiety, depression Medical History CT abdomen at [facility] 09-14-16 shows a ventral hernia and [...]
--- OUTSIDE RECORDS SUMMARY | 2019-02-08 10:33 | XMS REPORT ---
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 Name Role Phone Migration, Doctor Unavailable Unavailable PROBLEMS Type Condition ICD9-CM Code SWQ82-NP Code Onset Dates Condition Status SNOMED Code Problem Essential hypertension with goal blood pressure less than 130\/80 I10 Active 39673242 Problem Hyperlipidemia E78.5 Active 99426620 Problem Fatty liver disease, nonalcoholic K76.0 Active 239166858 Problem Psoriasis vulgaris L40.0 Active 671867192 Problem Psoriasis L40.9 Active 1247651 Problem Dysthymia F34.1 Active 18558440 Problem Metabolic syndrome X E88.81 Active 383754285 Problem Substance abuse F19.10 Active 09208912 Problem Emotional lability R45.86 Active 67088553 Problem Dental caries K02.9 Active 53055674 Problem High risk medication use Z79.899 Active 699456272 Problem Pulmonary emphysema, unspecified emphysema type J43.9 Active 01330389 Problem Heartburn R12 Active 64828013 Problem Weight loss R63.4 Active 891886867 Problem Colon cancer screening Z12.11 Active 814855565 Problem Mixed hyperlipidemia E78.2 Active 052225184 Problem Breast cancer screening Z12.39 Active 136074281 Problem Lumbago with sciatica, left side M54.42 Active 648833026 Problem Colonoscopy refused Z53.20 Active 996732062 Problem Other chronic pain G89.29 Active 98858430 Problem Lumbago with sciatica, right side M54.41 Active 878336692038571 Problem Urinary frequency R35.0 Active 962391650 Problem Hematuria, unspecified type R31.9 Active 16994186 Problem Serum calcium elevated E83.52 Active 47193190 Problem Epigastric abdominal pain R10.13 Active 88678420 Problem 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 Active 349522210 Problem Hypertension I10 Active 82694461 Problem Elevated serum GGT level R74.8 Active 849949394 Problem Gynecologic exam normal Z01.419 Active 747013291 Problem Vitamin D deficiency E55.9 Active 12713721 Problem Hypomagnesemia E83.42 Active 562567551 Problem Atopic dermatitis L20.9 Active 40667975 Problem Hypoglycemia E16.2 Active 479607747 ALLERGIES No Information ENCOUNTERS Encounter Location Date Diagnosis [employer] [id number], [place] [id number] November, [facility] [address] [id number], [place] [address]907277[address] Oct, High risk medication use Z79.899 [facility] [address] [id number], [place] [id number] Aug, [employer] [employer] [address] [employer] [id number], [place] [address] Jul, [facility] [address] [id number], [place] [address] Jul, Serum calcium elevated E83.52 and Vitamin D deficiency E55.9 [facility] [address] [id number], [place] [id number] Jul, [facility] [employer] [place] [address] AVE [id number], [place] [id number] Jul, Hypertension I10 ; Hypoglycemia E16.2 ; Colon cancer screening Z12.11 and Left upper quadrant pain R10.12 [facility] [address] [id number], [place] [address]86 Jul, Atopic dermatitis L20.9 [facility] [address] [id number], [place] 1643026[address] May, Serum calcium elevated E83.52 ; Fatty liver disease, nonalcoholic K76.0 ; Hypomagnesemia E83.42 ; Vitamin D deficiency E55.9 and Elevated liver enzymes R74.8 [facility] [address] [id number], [place] 390266165 Apr, High risk medication use Z79.899 ; Dysthymia F34.1 ; Fatty liver disease, nonalcoholic K76.0 ; Serum calcium elevated E83.52 and Viral gastroenteritis A08.[address] [facility] [address] [id number] [place] [address] Feb, [facility] [address] [id number], [place] 637914167 November, Serum calcium elevated E83.52 and Elevated serum GGT level R74.[address] [facility] [address] [id number], [place] [address]66 November, Fatty liver disease, nonalcoholic K76.[address] [facility] [address] [id number], [place] 386888696 November, High risk medication use Z79.899 ; Hematuria, unspecified type R31.9 ; Dental caries K02.9 ; Urinary frequency R35.0 and Substance abuse F19.[address] [facility] [address] [id number], [place] 25260[address] Sep, [facility] [address] [id number], [place] 337[address]36[address] Aug, [facility] [address] [id number], [place] 419383776 Aug, [facility] [address] [id number], [place] 166688750 Jul, [facility] [address] [id number], [place] [address]147530[place] Jun, [facility] [address] [id number], [place] 35[address]1843 Jun, Hematuria, unspecified type R31.9 [facility] [address] [id number], [place] 7161489[address] May, Lumbago with sciatica, left side M54.42 and Hematuria, unspecified type R31.[address] [facility] [address] [id number], [place] 941063254 May, Hematuria, unspecified type R31.[address] [address] [id number], [place] 836554073 Apr, High risk medication use Z79.899 ; Lumbago with sciatica, left side M54.42 ; Lumbago with sciatica, right side M54.41 ; Other chronic pain G89.29 ; Emotional lability R45.86 and Colonoscopy refused Z53.[address] [facility] [address] [id number], [place] 627131738 Feb, [facility] [address] [id number], [place] 247750296 Feb, [facility] [address] [facility] [id number], [place] [address] Jan, [facility] [address] [id number], [place] [address] Jan, Psoriasis vulgaris L40.0 [facility] [address] [id number], [place] 713315383 Jan, High risk medication use Z79.899 [facility] [address] [id number], [place] 285647646 Dec, Psoriasis vulgaris L40.0 [facility] [address] [id number], [place] 249372366 Oct, Mixed hyperlipidemia E78.2 and High risk medication use Z79.899 [facility] [address] [id number], [place] 999893046 Oct, [facility] [address] [id number], [place] 587105[address] Oct, [facility] [address] [id number], [place] 8479205[address] Oct, Hyperlipidemia E78.5 and Weight loss R63.[address] [id number], [place] 376727158 Oct, Gynecologic exam normal Z01.419 ; Breast cancer screening Z12.39 ; Weight loss R63.4 and Colon cancer screening Z12.[address] [id number] [place] [address] Jul, [facility] [address] [id number], [place] 997270698 Jul, High risk medication use Z79.[address] [id number], [place] 855498353 Jul, Metabolic syndrome X E88.81 ; Elevated serum GGT level R74.8 ; Dysthymia F34.1 and 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 [address] [id number], [place] [address]27037[address] Jun, [facility] [address] [id number], [place] 341848298 May, [facility] [address] [id number], [place] [address]697[address] May, [facility] [address] [id number], [place] 8292865[address] May, High risk medication use Z79.[address] [id number], [place] [address]75100[address] May, [facility] [address] [id number], [place] 946243236 May, Psoriasis vulgaris L40.0 and Other nursing home (current) drug therapy Z79.[address] [id number], [place] 371586145 Mar, Hyperlipidemia E78.[address] [address] [id number], [place] 68[address] Mar, [facility] [address] [id number], [place] 220612[address] Mar, [facility] [address] [id number], [place] 866879764 Mar, Fatty liver disease, nonalcoholic K76.0 and Hyperlipidemia E78.[address] [id number] [place] [address] Mar, [facility] [address] [id number] [place] [address] Mar, Fatty liver disease, nonalcoholic K76.0 ; Psoriasis L40.9 and Hyperlipidemia E78.[address] [id number] [place] [address] Mar, [facility] [address] [id number] [address] Feb, [facility] [address] [id number], [place] 730640311 Feb, [facility] [address] [id number], [place] 931485567 Jan, [facility] [address] [id number], [place] 097651503 Dec, [facility] [address] [id number], [place] 652060158 Dec, [facility] [address] [facility] [id number], [place] [address] November, [facility] [address] [id number], [place] 158780749 November, [facility] [address] [id number], [place] 911462048 Oct, [facility] [address] [id number], [place] 614734600 Oct, Fatty liver disease, nonalcoholic K76.0 and Encounter for immunization Z23 [facility] [address] [facility] [id number], [place] [address] Oct, [facility] [address] [id number], [place] 068137035 Sep, Fatty liver disease, nonalcoholic K76.[address] [id number], [place] 118129984 Sep, Fatty liver disease, nonalcoholic K76.0 ; High risk medication use Z79.899 ; Emotional lability R45.86 ; Hyperlipidemia E78.5 and Essential hypertension with goal blood pressure less than 130\/[address] [facility] [address] [facility] [id number] [place] [address] Sep, [facility] [address] [address] [id number], [place] 730761073 Aug, Mixed hyperlipidemia E78.2 and Heartburn R12 [facility] [address] [id number], [place] 626007111 Aug, High risk medication use Z79.899 ; Emotional lability R45.86 ; Pulmonary emphysema, unspecified emphysema type J43.9 and Heartburn R12 [facility] [address] [id number], [place] 089859209 Jul, [facility] [address] [id number], [place] 845690101 Jul, [facility] [address] [address] [id number], [place] 129734991 Jun, [facility] [address] [id number], [place] 099333539 May, Right upper quadrant abdominal pain R10.11 and Fatty liver K76.0 [facility] [address] [id number], [place] 762980552 Apr, Elevated AFP R77.2 ; Fatty liver K76.0 ; Unspecified cirrhosis of liver K74.60 ; High risk medication use Z79.899 ; Anhedonia R45.84 and Psoriasis L40.9 [facility] [address] [id number], [place] 434131331 Apr, [facility] [address] [address] [id number], [place] 246170798 Apr, Elevated liver enzymes R74.8 [facility] [address] [address] [id number], [place] 053811176 Apr, Abdominal pain, left lower quadrant R10.32 ; Mixed hyperlipidemia E78.2 and Hyperlipidemia 272.4 [facility] [address] [id number], [place] [id number] 09 Apr, 2015 Encounter for routine gynecological examination Z01.419 and Breast cancer screening Z12.39 [facility] [address] [id number], [place] 423228026 Apr, Abdominal pain, left lower quadrant R10.32 ; Mixed hyperlipidemia E78.2 and Lumbago M54.5 [facility] [address] [id number], [place] 994122854 Mar, Psoriasis 696.1 ; Hyperlipidemia 272.4 and Chronic pain 338.29 [facility] [address] [place] [address] AVE [id number], [place] 230087153 Mar, [facility] [address] [id number], [place] 266113193 Mar, [facility] [address] [place] [address] AVE [id number], [place] 670343282 Mar, Rash and nonspecific skin eruption 782.1 [facility] [address] [id number], [place] 821715478 Feb, Dermatitis 692.9 and Thoracic or lumbosacral neuritis or radiculitis, unspecified 724.4 [facility] [address] [address] [id number], [place] 753634552 Feb, Dermatitis 692.9 and Follow-up examination V67.9 [facility] [address] [id number], [place] 933011812 Jan, [facility] [address] [id number], [place] 768225826 Jan, Allergic dermatitis 692.9 [facility] [address] [id number], [place] 260279335 Jan, Rash and nonspecific skin eruption 782.[address] [facility] [address] [id number], [place] 170763637 Jan, [facility] [address] [id number], [place] 920504095 Jan, Dermatitis 692.9 and Environmental allergies V15.[address] [facility] [address] [id number], [place] 233984145 Dec, [facility] [address] [id number], [place] 162145531 Dec, [facility] [address] [id number], [place] 925081022 Dec, [facility] [address] [id number], [place] 200760699 November, [facility] [address] [id number], [place] 464111854 November, Muscle spasm 728.85 [facility] [address]00565100[place], [place] [address] Oct, [facility] [id number] [place] [address] Oct, [facility] [address]00565100[place], [place] [address] Sep, [facility] [address] [id number], [place] [address] Sep, [facility] [address]00565100[place], [place] [address] Sep, [facility] [id number] [place] [address] Sep, [facility] [address] [id number], [place] [address] Sep, [facility] [id number] [place] [address] Sep, [facility] [place] [facility] [address] [id number] [place] [address] 16 Sep, 2014 [facility] [place] [facility] [address] [id number] [place] [address] 16 Sep, 2014 [facility] [place] [facility] [address] [id number] [place] [address] Aug, [facility] [place] [facility] [address] [id number] [place] [address] Aug, [facility] [place] [facility] [address] [id number] [place] [address] Jul, [facility] [place] [facility] [address] [id number] [place] [address] Jul, [facility] [place] [facility] [address] [id number] [place] [address] Jul, [facility] [place] [facility] [address] [id number] [place] [address] Jul, [facility] [place] [facility] [address] [id number] [place] [address] Jul, [facility] [place] [facility] [address] [id number] [place] [address] Jul, [facility] [place] [facility] [address] [id number] [place] [address] 18 Jun, 2014 [facility] [place] [facility] [address] [id number] [place] [address] Jun, [facility] [place] [facility] [address] [id number] [place] [address] Jun, [facility] [place] [facility] [address] [id number] [place] [address] Jun, [facility] [place] [facility] [address] [id number] [place] [address] 09 Jun, 2014 [facility] [place] [facility] [address] [id number], [place] [address] Jun, [facility] [place] [facility] [address] [id number] [place] [address] Jun, [facility] [place] [facility] [address] [id number] [place] [address] Jun, [facility] [place] [facility] [address] [id number] [place] [address] May, [facility] [place] [facility] [address] [id number] [place] [address] May, [facility] [place] [facility] [address] [id number] [place] [address] May, [facility] [place] [facility] [address] [id number] [place] [address] May, [facility] [place] [facility] [address] [id number] [place] [address] May, [facility] [place] [facility] [address] [id number] [place] [address] Apr, [facility] [place] [facility] [address] [id number] [place] [address] Apr, [facility] [place] [facility] [address] [id number] [place] [address] Apr, [facility] [place] [facility] [address] [id number], [place] [address] Apr, [facility] [place] [facility] [address] [id number], [place] [address] Apr, [facility] [place] [facility] [address] [id number] [place] [address] Apr, [facility] [place] [facility] [address] [id number] [place] [address] Apr, [facility] [place] [facility] [address] [id number] [place] [address] Apr, [facility] [place] [facility] [address] [id number] [place] [address] 20 Apr, 2013 [facility] [place] [facility] [address] [id number] [place] [address] 20 Apr, 2013 [facility] [place] [facility] [address] [id number] [place] [address] 17 Apr, 2013 [facility] [place] [facility] [address] [id number] [place] [address] 17 Apr, 2013 [facility] [place] [facility] [address] [id number] [place] [address] 16 Apr, 2013 [facility] [place] [facility] [address] [id number] [place] [address] 16 Apr, 2013 [facility] [place] [facility] [address] [id number] [place] [address] 15 Apr, 2013 [facility] [place] [facility] [address] [id number] [place] [address] 15 Apr, 2013 [facility] [place] [facility] [address] [id number] [place] [address] 14 Apr, 2014 [facility] [place] [facility] [address] [id number] [place] [address] 14 Apr, 2014 [facility] [place] [facility] [address] [id number] [place] [address] 13 Apr, 2014 [facility] [place] [facility] [address] [id number] [place] [address] 13 Apr, 2013 [facility] [place] [facility] [address] [id number] [place] [address] 06 Apr, 2013 [facility] [place] [facility] [address] [id number] [place] [address] 06 Apr, 2013 [facility] [place] [facility] [address] [id number] [place] [address] 05 Apr, 2013 [facility] [place] [facility] [address] [id number] [place] [address] Apr, [facility] [place] [facility] [address] [id number] [place] [address] Apr, [facility] [place] [facility] [address] [id number] [place] [address] Apr, [facility] [place] [facility] [address] [id number] [place] [address] Mar, [facility] [place] [facility] [address] [id number] [place] [address] Mar, [facility] [place] [facility] [address] [id number] [place] [address] Feb, [facility] [place] [facility] [address] [id number] [place] [address] Feb, [facility] [place] [facility] [address] [id number] [place] [address] Feb, [facility] [place] [facility] [address] [id number] [place] [address] Feb, [facility] [place] [facility] [address] [id number] [place] [address] Jan, [facility] [place] [facility] [address] [id number] [place] [address] Jan, [facility] [place] [facility] [address] [id number] [place] [address] Jan, [facility] [place] [facility] [address] [id number] [place] [address] Jan, [facility] [place] [facility] [address] [id number] [place] [address] Jan, [facility] [place] [facility] [address] [id number] [place] [address] Jan, [facility] [place] [facility] [address] [id number] [place] [address] Jan, [facility] [place] [facility] [address] [id number] [place] [address] Jan, [facility] [place] [facility] [address] [id number] [place] [address] Jan, [facility] [place] [facility] [address] [id number] [place] [address] Jan, [facility] [place] [facility] [address] [id number] [place] [address] Jan, [facility] [place] [facility] [address] [id number] [place] [address] Dec, [facility] [place] [facility] [address] [id number] [place] [address] Dec, [facility] [place] [facility] [address] [id number] [place] [address] Dec, [facility] [place] [facility] [address] [id number] [place] [address] Dec, [facility] [place] [facility] [address] [id number] [place] [address] November, [facility] [place] [facility] [address] [id number] [place] [address] November, [facility] [place] [facility] [address] [id number] [place] [address] November, [facility] [place] [facility] [address] [id number] [place] [address] November, [facility] [place] [facility] [address] [id number] [place] [address] November, [facility] [place] [facility] [address] [id number] [place] [address] November, [facility] [place] [facility] [address] [id number] [place] [address] November, [facility] [place] [facility] [address] [id number] [place] [address] November, [facility] [place] [facility] [address] [id number] [place] [address] November, [facility] [place] [facility] [address] [id number] [place] [address] November, [facility] [place] [facility] [address] [id number] [place] [address] November, [facility] [place] [facility] [address] [id number] [place] [address] Oct, [facility] [place] [facility] [address] [id number] [place] [address] Oct, [facility] [place] [facility] [address] [id number] [place] [address] Oct, [facility] [place] [facility] [address] [id number] [place] [address] Oct, [facility] [place] [facility] [address] [id number] [place] [address] Oct, [facility] [place] [facility] [address] [id number] [place] [address] Oct, [facility] [place] [facility] [address] [id number] [place] [address] 28 Sep, 2013 [facility] [place] [facility] [address] [id number] [place] [address] Sep, [facility] [place] [facility] [address] [id number] [place] [address] Sep, [facility] [place] [facility] [address] [id number] [place] [address] Sep, [facility] [place] [facility] [address] [id number] [place] [address] Sep, [facility] [place] [facility] [address] [id number] [place] [address] 18 Sep, 2013 [facility] [place] [facility] [address] [id number] [place] [address] Sep, [facility] [place] [facility] [address] [id number] [place] [address] Sep, [facility] [place] [facility] [address] [id number] [place] [address] Sep, [facility] [place] [facility] [address] [id number] [place] [address] Sep, [facility] [place] [facility] [address] [id number] [place] [address] Sep, [facility] [place] [facility] [address] [id number] [place] [address] Aug, [facility] [place] [facility] [address] [id number] [place] [address] Aug, [facility] [place] [facility] [address] [id number] [place] [address] Aug, [facility] [place] [facility] [address] [id number] [place] [address] Aug, [facility] [place] [facility] [address] [id number] [place] [address] Jul, [facility] [place] [facility] [address] [id number] [place] [address] Jul, [facility] [place] [facility] [address] [id number] [place] [address] Jul, [facility] [place] [facility] [address] [id number] [place] [address] Jul, [facility] [place] [facility] [address] [id number] [place] [address] Jul, [facility] [place] [facility] [address] [id number] [place] [address] Jul, [facility] [place] [facility] [address] [id number] [place] [address] Jul, [facility] [place] [facility] [address] [id number] [place] [address] Jul, [facility] [address] [id number] [place] [address] Jul, [facility] [address] [id number] [place] [address] Jul, [facility] [facility] [address] [id number] [place] [address] Jul, [facility] [address] [id number] [place] [address] Jul, [facility] [address] [id number] [place] [address] Jul, [facility] [address] [id number] [place] [address] Jun, [facility] [address] [id number] [place] [address] Jun, [facility] [address] [id number] [place] [address] Jun, [facility] [address] [id number] [place] [address] Jun, [facility] [address] [id number] [place] [address] Jun, [facility] [address] [id number] [place] [address] Jun, [facility] [address] [id number] [place] [address] Jun, [facility] [place] [facility] [address] [id number] [place] [address] Jun, [facility] [address] [id number] [place] [address] Jun, [facility] [address] [id number] [place] [address] Jun, [facility] [address] [id number] [place] [address] Jun, [facility] [place] [facility] [address] [id number] [place] [address] Jun, [facility] [place] [facility] [address] [id number] [place] [address] Jun, [facility] [place] [facility] [address] [id number] [place] [address] Jun, [facility] [place] [facility] [address] [id number] [place] [address] Jun, [facility] [place] [facility] [address] [id number] [place] [address] Jun, [facility] [place] [facility] [address] [id number] [place] [address] Jun, [facility] [place] [facility] [address] [id number] [place] [address] Jun, [facility] [place] [facility] [address] [id number] [place] [address] Jun, [facility] [place] [facility] [address] [id number] [place] [address] Jun, [facility] [place] [facility] [address] [id number] [place] [address] Jun, [facility] [place] [facility] [address] [id number], [place] [address] Jun, [facility] [place] [facility] [address] [id number] [place] [address] Jun, [facility] [place] [facility] [address] [id number] [place] [address] May, [facility] [place] [facility] [address] [id number], [place] [address] May, [facility] [place] [facility] [address] [id number], [place] [address] Apr, [facility] [address] [facility] [id number] [id number] Mar, [facility] [address] [id number] [address] Feb, [facility] [address] [id number] [address] Feb, [facility] [id number] [address] Jan, [facility] [id number] [address] Jan, [facility] [id number] [address] November, [facility] [id number] [address] November, [facility] [id number], [place] [address] Oct, [facility] [address] [id number], [place] [address] Oct, [facility] [address] [facility] [id number] [id number] November, [facility] [address] [id number], [place] [address] May, [facility] [address] [id number], [place] [address] Feb, IMMUNIZATIONS No Known Immunizations SOCIAL HISTORY Never Assessed REASON FOR VISIT [place] [place] VITAL SIGNS MEDICATIONS Unknown [...] anxiety, depression Medical History CT abdomen at [facility] 09-14-16 shows a ventral hernia and fatty [...]
--- OUTSIDE RECORDS SUMMARY | 2019-02-08 10:33 | XMS REPORT ---
Author Author Migration, Doctor Organization [facility] Address Unknown Phone Unavailable Care Team Providers Care Noodle Maker Name Role Phone Migration, Doctor Unavailable Unavailable PROBLEMS Type Condition ICD9-CM Code XCL48-NF Code Onset Dates Condition Status SNOMED Code Problem Essential hypertension with goal blood pressure less than 130\/80 I10 Active 06585616 Problem Hyperlipidemia E78.5 Active 15833869 Problem Fatty liver disease, nonalcoholic K76.0 Active 376980216 Problem Psoriasis vulgaris L40.0 Active 176794640 Problem Psoriasis L40.9 Active 1146823 Problem Dysthymia F34.1 Active 48921449 Problem Metabolic syndrome X E88.81 Active 023361212 Problem Substance abuse F19.10 Active 68756270 Problem Emotional lability R45.86 Active 17661240 Problem Dental caries K02.9 Active 82042904 Problem High risk medication use Z79.899 Active 431965736 Problem Pulmonary emphysema, unspecified emphysema type J43.9 Active 82913014 Problem Heartburn R12 Active 07252650 Problem Weight loss R63.4 Active 787304139 Problem Colon cancer screening Z12.11 Active 030836234 Problem Mixed hyperlipidemia E78.2 Active 974252122 Problem Breast cancer screening Z12.39 Active 849585128 Problem Lumbago with sciatica, left side M54.42 Active 686334018 Problem Colonoscopy refused Z53.20 Active 736902019 Problem Other chronic pain G89.29 Active 58378697 Problem Lumbago with sciatica, right side M54.41 Active 166738078445049 Problem Urinary frequency R35.0 Active 378192443 Problem Hematuria, unspecified type R31.9 Active 86601750 Problem Serum calcium elevated E83.52 Active 52661623 Problem Epigastric abdominal pain R10.13 Active 09540127 Problem 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 Active 834463440 Problem Hypertension I10 Active 77134063 Problem Elevated serum GGT level R74.8 Active 227818036 Problem Gynecologic exam normal Z01.419 Active 139696689 Problem Vitamin D deficiency E55.9 Active 04701819 Problem Hypomagnesemia E83.42 Active 601875273 Problem Atopic dermatitis L20.9 Active 09812089 Problem Hypoglycemia E16.2 Active 509735309 ALLERGIES No Information ENCOUNTERS Encounter Location Date Diagnosis [facility] [employer] [address] [id number], [place] [id number] November, [facility] [address] [id number], [place] [address]87[address] Oct, High risk medication use Z79.899 [facility] [address] [id number], [place] [address]4399[address] Aug, [facility] [address] [id number], [place] [id number] Jul, [facility] [address] [address] [id number], [place] [address] Jul, Serum calcium elevated E83.52 and Vitamin D deficiency E55.9 [facility] [address] [id number], [place] [id number] Jul, [facility] [address] [place] [address] AVE [id number], [place] [id number] Jul, Hypertension I10 ; Hypoglycemia E16.2 ; Colon cancer screening Z12.11 and Left upper quadrant pain R10.12 [facility] [address] [id number], [place] [address]97[address] Jul, Atopic dermatitis L20.9 [facility] [address] [id number], [place] [address] May, Serum calcium elevated E83.52 ; Fatty liver disease, nonalcoholic K76.0 ; Hypomagnesemia E83.42 ; Vitamin D deficiency E55.9 and Elevated liver enzymes R74.8 [facility] [address] [id number], [place] [address] Apr, High risk medication use Z79.899 ; Dysthymia F34.1 ; Fatty liver disease, nonalcoholic K76.0 ; Serum calcium elevated E83.52 and Viral gastroenteritis A08.[address] [facility] [address] [id number] [place] [address] Feb, [facility] [address] [id number], [place] [address]304[address] November, Serum calcium elevated E83.52 and Elevated serum GGT level R74.[address] [facility] [address] [id number], [place] 645575708 November, Fatty liver disease, nonalcoholic K76.[address] [facility] [address] [id number], [place] [address]40647[address] November, High risk medication use Z79.899 ; Hematuria, unspecified type R31.9 ; Dental caries K02.9 ; Urinary frequency R35.0 and Substance abuse F19.[address] [facility] [address] [id number], [place] [address] Sep, [facility] [address] [id number], [place] 336644243 Aug, [facility] [address] [id number], [place] [address]092970[address] Aug, [facility] [address] [id number], [place] 27[address]16337 Jul, [facility] [address] [id number], [place] [address]407[address] Jun, [facility] [address] [id number], [place] [address]8665 Jun, Hematuria, unspecified type R31.9 [facility] [address] [id number], [place] [address] May, Lumbago with sciatica, left side M54.42 and Hematuria, unspecified type R31.[address] [facility] [address] [id number], [place] [address] May, Hematuria, unspecified type R31.[address] [facility] [address] [id number], [place] [address]47857086 Apr, High risk medication use Z79.899 ; Lumbago with sciatica, left side M54.42 ; Lumbago with sciatica, right side M54.41 ; Other chronic pain G89.29 ; Emotional lability R45.86 and Colonoscopy refused Z53.[address] [facility] [address] [id number], [place] [address]90849586 Feb, [facility] [address] [id number], [place] [address]34978 Feb, [facility] [address] [facility] [id number], [place] [address] Jan, [facility] [address] [id number], [place] [address]609[address] Jan, Psoriasis vulgaris L40.0 [facility] [address] [id number], [place] [address] Jan, High risk medication use Z79.899 [facility] [address] [id number], [place] 142278132 Dec, Psoriasis vulgaris L40.0 [facility] [address] [id number], [place] 439873754 Oct, Mixed hyperlipidemia E78.2 and High risk medication use Z79.899 [facility] [address] [id number], [place] 495207655 Oct, [facility] [address] [id number], [place] 852068[address] Oct, [facility] [address] [id number], [place] 953229504 Oct, Hyperlipidemia E78.5 and Weight loss R63.[address] [facility] [address] [id number], [place] 120026049 Oct, Gynecologic exam normal Z01.419 ; Breast cancer screening Z12.39 ; Weight loss R63.4 and Colon cancer screening Z12.[address] [facility] [address] [id number] [place] 159[address] Jul, [facility] [address] [id number], [place] 418222558 Jul, High risk medication use Z79.[address] [facility] [address] [id number], [place] 954785739 Jul, Metabolic syndrome X E88.81 ; Elevated serum GGT level R74.8 ; Dysthymia F34.1 and 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 [facility] [address] [id number], [place] 701[address] Jun, [facility] [address] [id number], [place] 104174826 May, [facility] [address] [id number], [place] 299649649 May, [facility] [address] [id number], [place] 321547900 May, High risk medication use Z79.[address] [facility] [address] [id number], [place] 134733039 May, [facility] [address] [id number], [place] 949630741 May, Psoriasis vulgaris L40.0 and Other half-way (current) drug therapy Z79.[address] [facility] [address] [id number], [place] 432291988 Mar, Hyperlipidemia E78.[address] [facility] [address] [id number], [place] 036892098 Mar, [facility] [address] [id number], [place] 959793462 Mar, [facility] [address] [id number], [place] 052086098 Mar, Fatty liver disease, nonalcoholic K76.0 and Hyperlipidemia E78.[address] [facility] [address] [id number] [place] [address] Mar, [facility] [address] [id number] [place] 47[address] Mar, Fatty liver disease, nonalcoholic K76.0 ; Psoriasis L40.9 and Hyperlipidemia E78.[address] [facility] [address] [id number] [place] 498[address] Mar, [facility] [address] [id number] [place] 84[place]123[address] Feb, [facility] [address] [id number], [place] 262165729 Feb, [facility] [address] [id number], [place] 824798668 Jan, [facility] [address] [id number], [place] 742094168 Dec, [facility] [address] [id number], [place] 587570523 Dec, [facility] [address] [facility] [id number], [place] [address] November, [facility] [address] [id number], [place] 984084779 November, [facility] [address] [id number], [place] 522102082 Oct, [facility] [address] [id number], [place] 060053208 Oct, Fatty liver disease, nonalcoholic K76.0 and Encounter for immunization Z23 [facility] [place] [facility] [address] [facility] [id number], [place] [address] Oct, [facility] [address] [id number], [place] 899394117 Sep, Fatty liver disease, nonalcoholic K76.[address] [facility] [address] [id number], [place] 629037176 Sep, Fatty liver disease, nonalcoholic K76.0 ; High risk medication use Z79.899 ; Emotional lability R45.86 ; Hyperlipidemia E78.5 and Essential hypertension with goal blood pressure less than 130\/80 I10 [facility] [address] [facility] [id number] [place] [address] Sep, [facility] [address] [id number], [place] 110286380 Aug, Mixed hyperlipidemia E78.2 and Heartburn R12 [facility] [address] [id number], [place] 070933554 Aug, High risk medication use Z79.899 ; Emotional lability R45.86 ; Pulmonary emphysema, unspecified emphysema type J43.9 and Heartburn R12 [facility] [address] [id number], [place] 798749677 Jul, [facility] [address] [id number], [place] 556049023 Jul, [facility] [address] [id number], [place] 169007648 Jun, [facility] [address] [id number], [place] 078741941 May, Right upper quadrant abdominal pain R10.11 and Fatty liver K76.0 [facility] [address] [id number], [place] 158465434 Apr, Elevated AFP R77.2 ; Fatty liver K76.0 ; Unspecified cirrhosis of liver K74.60 ; High risk medication use Z79.899 ; Anhedonia R45.84 and Psoriasis L40.9 [facility] [address] [id number], [place] 083664077 Apr, [facility] [address] [id number], [place] 042257857 Apr, Elevated liver enzymes R74.8 [facility] [address] [id number], [place] 671922620 Apr, Abdominal pain, left lower quadrant R10.32 ; Mixed hyperlipidemia E78.2 and Hyperlipidemia 272.4 [facility] [address] [id number], [place] 682149823 09 Apr, 2015 Encounter for routine gynecological examination Z01.419 and Breast cancer screening Z12.39 [facility] [address] [id number], [place] 131178099 Apr, Abdominal pain, left lower quadrant R10.32 ; Mixed hyperlipidemia E78.2 and Lumbago M54.5 [facility] [address] [id number], [place] 062412552 Mar, Psoriasis 696.1 ; Hyperlipidemia 272.4 and Chronic pain 338.29 [facility] [address] [place] [address] AVE [id number], [place] 142981681 Mar, [facility] [address] [id number], [place] 749339628 Mar, [facility] [address] [place] [address] AVE [id number], [place] 382921519 Mar, Rash and nonspecific skin eruption 782.1 [facility] [address] [id number], [place] 901444254 Feb, Dermatitis 692.9 and Thoracic or lumbosacral neuritis or radiculitis, unspecified 724.4 [facility] [address] [id number], [place] 942133189 Feb, Dermatitis 692.9 and Follow-up examination V67.9 [facility] [address] [id number], [place] 233931394 Jan, [facility] [address] [id number], [place] 878326815 Jan, Allergic dermatitis 692.9 [facility] [address] [id number], [place] 240067184 Jan, Rash and nonspecific skin eruption 782.[address] [facility] [address] [id number], [place] 442163790 Jan, [facility] [address] [id number], [place] 816131352 Jan, Dermatitis 692.9 and Environmental allergies V15.[address] [facility] [address] [id number], [place] 528025209 Dec, [facility] [address] [id number], [place] 733730173 Dec, [facility] [address] [id number], [place] 326163735 Dec, [facility] [address] [id number], [place] 076010906 November, [facility] [address] [id number], [place] 814637328 November, Muscle spasm 728.85 [facility] [address]00565100[place], [place] [address] Oct, [facility] [id number] [place] [address] Oct, [facility] [address]00565100[place], [place] [address] Sep, [facility] [address] [id number], [place] [address] Sep, [facility] [address]00565100[place], [place] [address] Sep, [facility] [id number] [place] [address] Sep, [facility] [address] [id number], [place] [address] Sep, [facility] [id number] [place] [address] Sep, [facility] [place] [facility] [address] [id number] [place] [address] 16 Sep, 2014 [facility] [place] [facility] [address] [id number] [place] [address] 16 Sep, 2014 [facility] [place] [facility] [address] [id number] [place] [address] Aug, [facility] [place] [facility] [address] [id number] [place] [address] Aug, [facility] [place] [facility] [address] [id number] [place] [address] Jul, [facility] [place] [facility] [address] [id number] [place] [address] Jul, [facility] [place] [facility] [address] [id number] [place] [address] Jul, [facility] [place] [facility] [address] [id number] [place] [address] Jul, [facility] [place] [facility] [address] [id number] [place] [address] Jul, [facility] [place] [facility] [address] [id number] [place] [address] Jul, [facility] [place] [facility] [address] [id number] [place] [address] 18 Jun, 2014 [facility] [place] [facility] [address] [id number] [place] [address] Jun, [facility] [place] [facility] [address] [id number] [place] [address] Jun, [facility] [place] [facility] [address] [id number] [place] [address] Jun, [facility] [place] [facility] [address] [id number] [place] [address] 09 Jun, 2014 [facility] [place] [facility] [address] [id number], [place] [address] Jun, [facility] [place] [facility] [address] [id number] [place] [address] Jun, [facility] [place] [facility] [address] [id number] [place] [address] Jun, [facility] [place] [facility] [address] [id number] [place] [address] May, [facility] [place] [facility] [address] [id number] [place] [address] May, [facility] [place] [facility] [address] [id number] [place] [address] May, [facility] [place] [facility] [address] [id number] [place] [address] May, [facility] [place] [facility] [address] [id number] [place] [address] May, [facility] [place] [facility] [address] [id number] [place] [address] Apr, [facility] [place] [facility] [address] [id number] [place] [address] Apr, [facility] [place] [facility] [address] [id number] [place] [address] Apr, [facility] [place] [facility] [address] [id number], [place] [address] Apr, [facility] [place] [facility] [address] [id number], [place] [address] Apr, [facility] [place] [facility] [address] [id number] [place] [address] Apr, [facility] [place] [facility] [address] [id number] [place] [address] Apr, [facility] [place] [facility] [address] [id number] [place] [address] Apr, [facility] [place] [facility] [address] [id number] [place] [address] 20 Apr, 2013 [facility] [place] [facility] [address] [id number] [place] [address] 20 Apr, 2013 [facility] [place] [facility] [address] [id number] [place] [address] 17 Apr, 2013 [facility] [place] [facility] [address] [id number] [place] [address] 17 Apr, 2013 [facility] [place] [facility] [address] [id number] [place] [address] 16 Apr, 2013 [facility] [place] [facility] [address] [id number] [place] [address] 16 Apr, 2013 [facility] [place] [facility] [address] [id number] [place] [address] 15 Apr, 2013 [facility] [place] [facility] [address] [id number] [place] [address] 15 Apr, 2013 [facility] [place] [facility] [address] [id number] [place] [address] 14 Apr, 2014 [facility] [place] [facility] [address] [id number] [place] [address] 14 Apr, 2014 [facility] [place] [facility] [address] [id number] [place] [address] 13 Apr, 2014 [facility] [place] [facility] [address] [id number] [place] [address] 13 Apr, 2013 [facility] [place] [facility] [address] [id number] [place] [address] 06 Apr, 2013 [facility] [place] [facility] [address] [id number] [place] [address] 06 Apr, 2013 [facility] [place] [facility] [address] [id number] [place] [address] 05 Apr, 2013 [facility] [place] [facility] [address] [id number] [place] [address] Apr, [facility] [place] [facility] [address] [id number] [place] [address] Apr, [facility] [place] [facility] [address] [id number] [place] [address] Apr, [facility] [place] [facility] [address] [id number] [place] [address] Mar, [facility] [place] [facility] [address] [id number] [place] [address] Mar, [facility] [place] [facility] [address] [id number] [place] [address] Feb, [facility] [place] [facility] [address] [id number] [place] [address] Feb, [facility] [place] [facility] [address] [id number] [place] [address] Feb, [facility] [place] [facility] [address] [id number] [place] [address] Feb, [facility] [place] [facility] [address] [id number] [place] [address] Jan, [facility] [place] [facility] [address] [id number] [place] [address] Jan, [facility] [place] [facility] [address] [id number] [place] [address] Jan, [facility] [place] [facility] [address] [id number] [place] [address] Jan, [facility] [place] [facility] [address] [id number] [place] [address] Jan, [facility] [place] [facility] [address] [id number] [place] [address] Jan, [facility] [place] [facility] [address] [id number] [place] [address] Jan, [facility] [place] [facility] [address] [id number] [place] [address] Jan, [facility] [place] [facility] [address] [id number] [place] [address] Jan, [facility] [place] [facility] [address] [id number] [place] [address] Jan, [facility] [place] [facility] [address] [id number] [place] [address] Jan, [facility] [place] [facility] [address] [id number] [place] [address] Dec, [facility] [place] [facility] [address] [id number] [place] [address] Dec, [facility] [place] [facility] [address] [id number] [place] [address] Dec, [facility] [place] [facility] [address] [id number] [place] [address] Dec, [facility] [place] [facility] [address] [id number] [place] [address] November, [facility] [place] [facility] [address] [id number] [place] [address] November, [facility] [place] [facility] [address] [id number] [place] [address] November, [facility] [place] [facility] [address] [id number] [place] [address] November, [facility] [place] [facility] [address] [id number] [place] [address] November, [facility] [place] [facility] [address] [id number] [place] [address] November, [facility] [place] [facility] [address] [id number] [place] [address] November, [facility] [place] [facility] [address] [id number] [place] [address] November, [facility] [place] [facility] [address] [id number] [place] [address] November, [facility] [place] [facility] [address] [id number] [place] [address] November, [facility] [place] [facility] [address] [id number] [place] [address] November, [facility] [place] [facility] [address] [id number] [place] [address] Oct, [facility] [place] [facility] [address] [id number] [place] [address] Oct, [facility] [place] [facility] [address] [id number] [place] [address] Oct, [facility] [place] [facility] [address] [id number] [place] [address] Oct, [facility] [place] [facility] [address] [id number] [place] [address] Oct, [facility] [place] [facility] [address] [id number] [place] [address] Oct, [facility] [place] [facility] [address] [id number] [place] [address] 28 Sep, 2013 [facility] [place] [facility] [address] [id number] [place] [address] Sep, [facility] [place] [facility] [address] [id number] [place] [address] Sep, [facility] [place] [facility] [address] [id number] [place] [address] Sep, [facility] [place] [facility] [address] [id number] [place] [address] Sep, [facility] [place] [facility] [address] [id number] [place] [address] 18 Sep, 2013 [facility] [place] [facility] [address] [id number] [place] [address] Sep, [facility] [place] [facility] [address] [id number] [place] [address] Sep, [facility] [place] [facility] [address] [id number] [place] [address] Sep, [facility] [place] [facility] [address] [id number] [place] [address] Sep, [facility] [place] [facility] [address] [id number] [place] [address] Sep, [facility] [place] [facility] [address] [id number] [place] [address] Aug, [facility] [place] [facility] [address] [id number] [place] [address] Aug, [facility] [place] [facility] [address] [id number] [place] [address] Aug, [facility] [place] [facility] [address] [id number] [place] [address] Aug, [facility] [place] [facility] [address] [id number] [place] [address] Jul, [facility] [place] [facility] [address] [id number] [place] [address] Jul, [facility] [place] [facility] [address] [id number] [place] [address] Jul, [facility] [place] [facility] [address] [id number] [place] [address] Jul, [facility] [place] [facility] [address] [id number] [place] [address] Jul, [facility] [place] [facility] [address] [id number] [place] [address] Jul, [facility] [place] [facility] [address] [id number] [place] [address] Jul, [facility] [place] [facility] [address] [id number] [place] [address] Jul, [facility] [address] [id number] [place] [address] Jul, [facility] [address] [id number] [place] [address] Jul, [facility] [address] [id number] [place] [address] Jul, [facility] [address] [id number] [place] [address] Jul, [facility] [address] [id number] [place] [address] Jul, [facility] [address] [id number] [place] [address] Jun, [facility] [address] [id number] [place] [address] Jun, [facility] [address] [id number] [place] [address] Jun, [facility] [address] [id number] [place] [address] Jun, [facility] [address] [id number] [place] [address] Jun, [facility] [address] [id number] [place] [address] Jun, [facility] [facility] [address] [id number] [place] [address] Jun, [facility] [place] [facility] [address] [id number] [place] [address] Jun, [facility] [address] [id number] [place] [address] Jun, [facility] [address] [id number] [place] [address] Jun, [facility] [address] [id number] [place] [address] Jun, [facility] [place] [facility] [address] [id number] [place] [address] Jun, [facility] [place] [facility] [address] [id number] [place] [address] Jun, [facility] [place] [facility] [address] [id number] [place] [address] Jun, [facility] [place] [facility] [address] [id number] [place] [address] Jun, [facility] [place] [facility] [address] [id number] [place] [address] Jun, [facility] [place] [facility] [address] [id number] [place] [address] Jun, [facility] [place] [facility] [address] [id number] [place] [address] Jun, [facility] [place] [facility] [address] [id number] [place] [address] Jun, [facility] [place] [facility] [address] [id number] [place] [address] Jun, [facility] [place] [facility] [address] [id number] [place] [address] Jun, [facility] [place] [facility] [address] [id number], [place] [address] Jun, [facility] [place] [facility] [address] [id number] [place] [address] Jun, [facility] [place] [facility] [address] [id number] [place] [address] May, [facility] [place] [facility] [address] [id number], [place] [address] May, [facility] [place] [facility] [address] [id number], [place] [address] Apr, [facility] [address] [facility] [id number] [id number] Mar, [facility] [address] [id number], [place] [address] Feb, [facility] [address] [id number], [place] [address] Feb, [facility] [id number], [place] [address] Jan, [facility] [id number], [place] [address] Jan, [facility] [id number], [place] [address] November, [facility] [id number], [place] [address] November, [facility] [id number], [place] [address] Oct, [facility] [address] [id number], [place] [address] Oct, [facility] [address] [facility] [id number] [id number] November, [facility] [address] [id number], [place] [address] May, [facility] [address] [id number], [place] [address] Feb, IMMUNIZATIONS No Known Immunizations SOCIAL HISTORY Never Assessed REASON FOR VISIT EMR-[facility] PLAN OF CARE VITAL SIGNS MEDICATIONS Unknown [...] anxiety, depression Medical History CT abdomen at [facility] 09-14-16 shows a ventral hernia and fatty [...]
--- OUTSIDE RECORDS SUMMARY | 2019-02-08 10:34 | XMS REPORT ---
Author Author Migration, Doctor Organization [facility] Address Unknown Phone Unavailable Care Team Providers Care Naval Designer Name Role Phone Migration, Doctor Unavailable Unavailable PROBLEMS Type Condition ICD9-CM Code QLS99-RG Code Onset Dates Condition Status SNOMED Code Problem Essential hypertension with goal blood pressure less than 130\/80 I10 Active 80393219 Problem Hyperlipidemia E78.5 Active 26595361 Problem Fatty liver disease, nonalcoholic K76.0 Active 175324290 Problem Psoriasis vulgaris L40.0 Active 871588292 Problem Psoriasis L40.9 Active 1158911 Problem Dysthymia F34.1 Active 41114932 Problem Metabolic syndrome X E88.81 Active 581546943 Problem Substance abuse F19.10 Active 07641224 Problem Emotional lability R45.86 Active 04346418 Problem Dental caries K02.9 Active 79314749 Problem High risk medication use Z79.899 Active 589033300 Problem Pulmonary emphysema, unspecified emphysema type J43.9 Active 01690979 Problem Heartburn R12 Active 49514642 Problem Weight loss R63.4 Active 295883406 Problem Colon cancer screening Z12.11 Active 696691474 Problem Mixed hyperlipidemia E78.2 Active 449219592 Problem Breast cancer screening Z12.39 Active 228803508 Problem Lumbago with sciatica, left side M54.42 Active 576678135 Problem Colonoscopy refused Z53.20 Active 029868561 Problem Other chronic pain G89.29 Active 68159439 Problem Lumbago with sciatica, right side M54.41 Active 309681829674906 Problem Urinary frequency R35.0 Active 542617083 Problem Hematuria, unspecified type R31.9 Active 57363269 Problem Serum calcium elevated E83.52 Active 68706406 Problem Epigastric abdominal pain R10.13 Active 72106823 Problem 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 Active 243902482 Problem Hypertension I10 Active 22795881 Problem Elevated serum GGT level R74.8 Active 223876366 Problem Gynecologic exam normal Z01.419 Active 521852117 Problem Vitamin D deficiency E55.9 Active 23631954 Problem Hypomagnesemia E83.42 Active 503345318 Problem Atopic dermatitis L20.9 Active 63780956 Problem Hypoglycemia E16.2 Active 980265363 ALLERGIES No Information ENCOUNTERS Encounter Location Date Diagnosis [facility] [address] [id number] [id number] November, [facility] [address] [id number], [place] [id number] Oct, High risk medication use Z79.899 [facility] [address] [id number], [place] [address]487298[address] Aug, [facility] [address] [employer] [id number], [place] 436235873 Jul, [facility] [employer] [id number], [place] [address] Jul, Serum calcium elevated E83.52 and Vitamin D deficiency E55.9 [facility] SystemsTER [employer] [address] [id number], [place] [address]78[address]18[address] Jul, [facility] [employer] [place] [address] AVE [id number], [place] [id number] Jul, Hypertension I10 ; Hypoglycemia E16.2 ; Colon cancer screening Z12.11 and Left upper quadrant pain R10.12 [facility] Systems[facility] [employer] [address] [id number], [place] [address]56[address] Jul, Atopic dermatitis L20.9 [facility] Systems[facility] [employer] [address] [id number], [place] [address]26515156 May, Serum calcium elevated E83.52 ; Fatty liver disease, nonalcoholic K76.0 ; Hypomagnesemia E83.42 ; Vitamin D deficiency E55.9 and Elevated liver enzymes R74.8 [facility] Systems[facility] [employer] [id number], [place] [address] Apr, High risk medication use Z79.899 ; Dysthymia F34.1 ; Fatty liver disease, nonalcoholic K76.0 ; Serum calcium elevated E83.52 and Viral gastroenteritis A08.[address] [facility] [address] [id number] [place] [id number] Feb, [facility] [address] [id number], [place] [address]78300[address] November, Serum calcium elevated E83.52 and Elevated serum GGT level R74.[address] [facility] [address] [id number], [place] 800821[address] November, Fatty liver disease, nonalcoholic K76.[address] [facility] [address] [id number], [place] 756585623 November, High risk medication use Z79.899 ; Hematuria, unspecified type R31.9 ; Dental caries K02.9 ; Urinary frequency R35.0 and Substance abuse F19.[address] [facility] [address] [id number], [place] 57[address]017[address] Sep, [facility] [address] [id number], [place] 066428892 Aug, [facility] [address] [id number], [place] 15[address] Aug, [facility] [address] [id number], [place] 483481791 Jul, [facility] [address] [id number], [place] [address]38900[address] Jun, [facility] [address] [id number], [place] 8549068[address] Jun, Hematuria, unspecified type R31.9 [facility] [address] [address] [id number], [place] [address]37437[address] May, Lumbago with sciatica, left side M54.42 and Hematuria, unspecified type R31.[address] [facility] [address] [id number], [place] [address]316[address] May, Hematuria, unspecified type R31.[address] [facility] [address] [id number], [place] 604704330 Apr, High risk medication use Z79.899 ; Lumbago with sciatica, left side M54.42 ; Lumbago with sciatica, right side M54.41 ; Other chronic pain G89.29 ; Emotional lability R45.86 and Colonoscopy refused Z53.[address] [facility] [address] [id number], [place] [address]89228[address] Feb, [facility] [address] [id number], [place] 16587[address] Feb, [facility] [address] [facility] [id number], [place] [address] Jan, [facility] [address] [id number], [place] 484590850 Jan, Psoriasis vulgaris L40.0 [facility] [address] [address] [id number], [place] 487538322 Jan, High risk medication use Z79.899 [facility] [address] [id number], [place] 711134931 Dec, Psoriasis vulgaris L40.0 [facility] [address] [id number], [place] 029186464 Oct, Mixed hyperlipidemia E78.2 and High risk medication use Z79.899 [facility] [address] [id number], [place] 703806786 Oct, [facility] [address] [id number], [place] 210268222 Oct, [facility] [address] [id number], [place] 622892610 Oct, Hyperlipidemia E78.5 and Weight loss R63.[address] [facility] [address] [id number], [place] 581294701 Oct, Gynecologic exam normal Z01.419 ; Breast cancer screening Z12.39 ; Weight loss R63.4 and Colon cancer screening Z12.[address] [facility] [address] [id number] [place] [address] Jul, [facility] [address] [id number], [place] 525483221 Jul, High risk medication use Z79.[address] [id number], [place] 247940285 Jul, Metabolic syndrome X E88.81 ; Elevated serum GGT level R74.8 ; Dysthymia F34.1 and 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 [facility] [address] [id number], [place] [address]790085[address] Jun, [facility] [address] [id number], [place] 850674715 May, [facility] [address] [id number], [place] 304342843 May, [facility] [address] [id number], [place] 703942559 May, High risk medication use Z79.[address] [id number], [place] 116547566 May, [facility] [address] [id number], [place] 034439759 May, Psoriasis vulgaris L40.0 and Other custodial (current) drug therapy Z79.[address] [id number], [place] 254624406 Mar, Hyperlipidemia E78.[address] [facility] [address] [id number], [place] 532035868 Mar, [facility] [address] [id number], [place] 079868837 Mar, [facility] [address] [id number], [place] 428355729 Mar, Fatty liver disease, nonalcoholic K76.0 and Hyperlipidemia E78.[address] [facility] [address] [id number] [place] [address] Mar, [facility] [address] [id number] [place] 1795[address] Mar, Fatty liver disease, nonalcoholic K76.0 ; Psoriasis L40.9 and Hyperlipidemia E78.[address] [facility] [address] [id number] [place] 4713[address]808 Mar, [facility] [address] [id number], [place] 358512237 Feb, [facility] [address] [id number], [place] 784608944 Feb, [facility] [address] [id number], [place] 030763863 Jan, [facility] [address] [id number], [place] 707653434 Dec, [facility] [address] [id number], [place] 286201243 Dec, [facility] [address] [facility] [id number], [place] [address] November, [facility] [address] [id number], [place] 706179775 November, [facility] [address] [id number], [place] 289606772 Oct, [facility] [address] [id number], [place] 521875727 Oct, Fatty liver disease, nonalcoholic K76.0 and Encounter for immunization Z23 [facility] [place] [facility] [address] [facility] [id number], [place] [address] Oct, [facility] [address] [id number], [place] 537054511 Sep, Fatty liver disease, nonalcoholic K76.[address] [facility] [address] [id number], [place] 188383483 Sep, Fatty liver disease, nonalcoholic K76.0 ; High risk medication use Z79.899 ; Emotional lability R45.86 ; Hyperlipidemia E78.5 and Essential hypertension with goal blood pressure less than 130\/[address] [facility] [address] [facility] [id number] [place] [address] Sep, [facility] [address] [address] [id number], [place] 276190315 Aug, Mixed hyperlipidemia E78.2 and Heartburn R12 [facility] [address] [id number], [place] 350168296 Aug, High risk medication use Z79.899 ; Emotional lability R45.86 ; Pulmonary emphysema, unspecified emphysema type J43.9 and Heartburn R12 [facility] [address] [id number], [place] [id number] Jul, [facility] [address] [id number], [place] 879207871 Jul, [facility] [address] [address] [id number], [place] 986128935 Jun, [facility] [address] [id number], [place] 495927439 May, Right upper quadrant abdominal pain R10.11 and Fatty liver K76.0 [facility] [address] [id number], [place] 476871395 Apr, Elevated AFP R77.2 ; Fatty liver K76.0 ; Unspecified cirrhosis of liver K74.60 ; High risk medication use Z79.899 ; Anhedonia R45.84 and Psoriasis L40.9 [facility] [address] [id number], [place] 985142974 Apr, [facility] [address] [address] [id number], [place] 133372576 Apr, Elevated liver enzymes R74.8 [facility] [address] [address] [id number], [place] 185586541 Apr, Abdominal pain, left lower quadrant R10.32 ; Mixed hyperlipidemia E78.2 and Hyperlipidemia 272.4 [facility] [address] [id number], [place] 120599453 09 Apr, 2015 Encounter for routine gynecological examination Z01.419 and Breast cancer screening Z12.39 [facility] [address] [id number], [place] 873959101 Apr, Abdominal pain, left lower quadrant R10.32 ; Mixed hyperlipidemia E78.2 and Lumbago M54.5 [facility] [address] [id number], [place] 305521381 Mar, Psoriasis 696.1 ; Hyperlipidemia 272.4 and Chronic pain 338.29 [facility] Sarmiento[address] [place] [address] AVE [id number], [place] 088664118 Mar, [facility] [address] [address] [id number], [place] 555970612 Mar, [facility] [address] [place] [address] AVE [id number], [place] 447230197 Mar, Rash and nonspecific skin eruption 782.1 [facility] [address] [id number], [place] 216516646 Feb, Dermatitis 692.9 and Thoracic or lumbosacral neuritis or radiculitis, unspecified 724.4 [facility] [address] [address] [id number], [place] 619597803 Feb, Dermatitis 692.9 and Follow-up examination V67.9 [facility] [address] [id number], [place] 335578753 Jan, [facility] [address] [id number], [place] 405308475 Jan, Allergic dermatitis 692.9 [facility] [address] [address] [id number], [place] 588819007 Jan, Rash and nonspecific skin eruption 782.[address] [facility] [address] [id number], [place] 514507888 Jan, [facility] [address] [id number], [place] 088981058 Jan, Dermatitis 692.9 and Environmental allergies V15.[address] [facility] [address] [id number], [place] 634727448 Dec, [facility] [address] [id number], [place] 983333260 Dec, [facility] [address] [id number], [place] 340052772 Dec, [facility] [address] [id number], [place] 396874869 November, [facility] [address] [id number], [place] 182907813 November, Muscle spasm 728.85 [facility] [id number], [place] [address] Oct, [facility] [address] [place] [id number] [place] [address] Oct, [facility] [address]00565100[place], [place] [address] Sep, [facility] [address] [id number], [place] [address] Sep, [facility] [address]00565100[place], [place] [address] Sep, [facility] [id number] [place] [address] Sep, [facility] [address] [id number], [place] [address] Sep, [facility] [id number] [place] [address] Sep, [facility] [place] [facility] [address] [id number] [place] [address] 16 Sep, 2014 [facility] [place] [facility] [address] [id number] [place] [address] 16 Sep, 2014 [facility] [place] [facility] [address] [id number] [place] [address] Aug, [facility] [place] [facility] [address] [id number] [place] [address] Aug, [facility] [place] [facility] [address] [id number] [place] [address] Jul, [facility] [place] [facility] [address] [id number] [place] [address] Jul, [facility] [place] [facility] [address] [id number] [place] [address] Jul, [facility] [place] [facility] [address] [id number] [place] [address] Jul, [facility] [place] [facility] [address] [id number] [place] [address] Jul, [facility] [place] [facility] [address] [id number] [place] [address] Jul, [facility] [place] [facility] [address] [id number] [place] [address] 18 Jun, 2014 [facility] [place] [facility] [address] [id number] [place] [address] Jun, [facility] [place] [facility] [address] [id number] [place] [address] Jun, [facility] [place] [facility] [address] [id number] [place] [address] Jun, [facility] [place] [facility] [address] [id number] [place] [address] 09 Jun, 2014 [facility] [place] [facility] [address] [id number], [place] [address] Jun, [facility] [place] [facility] [address] [id number] [place] [address] Jun, [facility] [place] [facility] [address] [id number] [place] [address] Jun, [facility] [place] [facility] [address] [id number] [place] [address] May, [facility] [place] [facility] [address] [id number] [place] [address] May, [facility] [place] [facility] [address] [id number] [place] [address] May, [facility] [place] [facility] [address] [id number] [place] [address] May, [facility] [place] [facility] [address] [id number] [place] [address] May, [facility] [place] [facility] [address] [id number] [place] [address] Apr, [facility] [place] [facility] [address] [id number] [place] [address] Apr, [facility] [place] [facility] [address] [id number] [place] [address] Apr, [facility] [place] [facility] [address] [id number], [place] [address] Apr, [facility] [place] [facility] [address] [id number], [place] [address] Apr, [facility] [place] [facility] [address] [id number] [place] [address] Apr, [facility] [place] [facility] [address] [id number] [place] [address] Apr, [facility] [place] [facility] [address] [id number] [place] [address] Apr, [facility] [place] [facility] [address] [id number] [place] [address] 20 Apr, 2013 [facility] [place] [facility] [address] [id number] [place] [address] 20 Apr, 2013 [facility] [place] [facility] [address] [id number] [place] [address] 17 Apr, 2013 [facility] [place] [facility] [address] [id number] [place] [address] 17 Apr, 2013 [facility] [place] [facility] [address] [id number] [place] [address] 16 Apr, 2013 [facility] [place] [facility] [address] [id number] [place] [address] 16 Apr, 2013 [facility] [place] [facility] [address] [id number] [place] [address] 15 Apr, 2013 [facility] [place] [facility] [address] [id number] [place] [address] 15 Apr, 2013 [facility] [place] [facility] [address] [id number] [place] [address] 14 Apr, 2014 [facility] [place] [facility] [address] [id number] [place] [address] 14 Apr, 2014 [facility] [place] [facility] [address] [id number] [place] [address] 13 Apr, 2014 [facility] [place] [facility] [address] [id number] [place] [address] 13 Apr, 2013 [facility] [place] [facility] [address] [id number] [place] [address] 06 Apr, 2013 [facility] [place] [facility] [address] [id number] [place] [address] 06 Apr, 2013 [facility] [place] [facility] [address] [id number] [place] [address] 05 Apr, 2013 [facility] [place] [facility] [address] [id number] [place] [address] Apr, [facility] [place] [facility] [address] [id number] [place] [address] Apr, [facility] [place] [facility] [address] [id number] [place] [address] Apr, [facility] [place] [facility] [address] [id number] [place] [address] Mar, [facility] [place] [facility] [address] [id number] [place] [address] Mar, [facility] [place] [facility] [address] [id number] [place] [address] Feb, [facility] [place] [facility] [address] [id number] [place] [address] Feb, [facility] [place] [facility] [address] [id number] [place] [address] Feb, [facility] [place] [facility] [address] [id number] [place] [address] Feb, [facility] [place] [facility] [address] [id number] [place] [address] Jan, [facility] [place] [facility] [address] [id number] [place] [address] Jan, [facility] [place] [facility] [address] [id number] [place] [address] Jan, [facility] [place] [facility] [address] [id number] [place] [address] Jan, [facility] [place] [facility] [address] [id number] [place] [address] Jan, [facility] [place] [facility] [address] [id number] [place] [address] Jan, [facility] [place] [facility] [address] [id number] [place] [address] Jan, [facility] [place] [facility] [address] [id number] [place] [address] Jan, [facility] [place] [facility] [address] [id number] [place] [address] Jan, [facility] [place] [facility] [address] [id number] [place] [address] Jan, [facility] [place] [facility] [address] [id number] [place] [address] Jan, [facility] [place] [facility] [address] [id number] [place] [address] Dec, [facility] [place] [facility] [address] [id number] [place] [address] Dec, [facility] [place] [facility] [address] [id number] [place] [address] Dec, [facility] [place] [facility] [address] [id number] [place] [address] Dec, [facility] [place] [facility] [address] [id number] [place] [address] November, [facility] [place] [facility] [address] [id number] [place] [address] November, [facility] [place] [facility] [address] [id number] [place] [address] November, [facility] [place] [facility] [address] [id number] [place] [address] November, [facility] [place] [facility] [address] [id number] [place] [address] November, [facility] [place] [facility] [address] [id number] [place] [address] November, [facility] [place] [facility] [address] [id number] [place] [address] November, [facility] [place] [facility] [address] [id number] [place] [address] November, [facility] [place] [facility] [address] [id number] [place] [address] November, [facility] [place] [facility] [address] [id number] [place] [address] November, [facility] [place] [facility] [address] [id number] [place] [address] November, [facility] [place] [facility] [address] [id number] [place] [address] Oct, [facility] [place] [facility] [address] [id number] [place] [address] Oct, [facility] [place] [facility] [address] [id number] [place] [address] Oct, [facility] [place] [facility] [address] [id number] [place] [address] Oct, [facility] [place] [facility] [address] [id number] [place] [address] Oct, [facility] [place] [facility] [address] [id number] [place] [address] Oct, [facility] [place] [facility] [address] [id number] [place] [address] 28 Sep, 2013 [facility] [place] [facility] [address] [id number] [place] [address] Sep, [facility] [place] [facility] [address] [id number] [place] [address] Sep, [facility] [place] [facility] [address] [id number] [place] [address] Sep, [facility] [place] [facility] [address] [id number] [place] [address] Sep, [facility] [place] [facility] [address] [id number] [place] [address] 18 Sep, 2013 [facility] [place] [facility] [address] [id number] [place] [address] Sep, [facility] [place] [facility] [address] [id number] [place] [address] Sep, [facility] [place] [facility] [address] [id number] [place] [address] Sep, [facility] [place] [facility] [address] [id number] [place] [address] Sep, [facility] [place] [facility] [address] [id number] [place] [address] Sep, [facility] [place] [facility] [address] [id number] [place] [address] Aug, [facility] [place] [facility] [address] [id number] [place] [address] Aug, [facility] [place] [facility] [address] [id number] [place] [address] Aug, [facility] [place] [facility] [address] [id number] [place] [address] Aug, [facility] [place] [facility] [address] [id number] [place] [address] Jul, [facility] [place] [facility] [address] [id number] [place] [address] Jul, [facility] [place] [facility] [address] [id number] [place] [address] Jul, [facility] [place] [facility] [address] [id number] [place] [address] Jul, [facility] [place] [facility] [address] [id number] [place] [address] Jul, [facility] [place] [facility] [address] [id number] [place] [address] Jul, [facility] [place] [facility] [address] [id number] [place] [address] Jul, [facility] [place] [facility] [address] [id number] [place] [address] Jul, [facility] [address] [id number] [place] [address] Jul, [facility] [address] [id number] [place] [address] Jul, [facility] [address] [id number] [place] [address] Jul, [facility] [address] [id number] [place] [address] Jul, [facility] [address] [id number] [place] [id number] Jul, [facility] [address] [id number] [place] [address] Jun, [facility] [address] [id number] [place] [address] Jun, [facility] [address] [id number] [place] [address] Jun, [facility] [address] [id number] [place] [address] Jun, [facility] [address] [id number] [place] [address] Jun, [facility] [address] [id number] [place] [address] Jun, [facility] [address] [id number] [place] [address] Jun, [facility] [place] [facility] [address] [id number] [place] [address] Jun, [facility] [address] [id number] [place] [address] Jun, [facility] [address] [id number] [place] [address] Jun, [facility] [address] [id number] [place] [address] Jun, [facility] [place] [facility] [address] [id number] [place] [address] Jun, [facility] [place] [facility] [address] [id number] [place] [address] Jun, [facility] [place] [facility] [address] [id number] [place] [address] Jun, [facility] [place] [facility] [address] [id number] [place] [address] Jun, [facility] [place] [facility] [address] [id number] [place] [address] Jun, [facility] [place] [facility] [address] [id number] [place] [address] Jun, [facility] [place] [facility] [address] [id number] [place] [address] Jun, [facility] [place] [facility] [address] [id number] [place] [address] Jun, [facility] [place] [facility] [address] [id number] [place] [address] Jun, [facility] [place] [facility] [address] [id number] [place] [address] Jun, [facility] [place] [facility] [address] [id number], [place] [address] Jun, [facility] [place] [facility] [address] [id number] [place] [address] Jun, [facility] [place] [facility] [address] [id number] [place] [address] May, [facility] [place] [facility] [address] [id number], [place] [address] May, [facility] [place] [facility] [address] [id number], [place] [address] Apr, [facility] [address] [facility] [id number] [id number] Mar, [facility] [address] [id number] [address] Feb, [facility] [address] [id number] [address] Feb, [facility] [id number] [address] Jan, [facility] [id number] [address] Jan, [facility] [id number] [address] November, [facility] [id number] [address] November, [facility] [id number], [place] [address] Oct, [facility] [address] [id number], [place] [address] Oct, [facility] [address] [facility] [id number] [id number] [place], [facility] [address] [id number], [place] [address] May, [facility] [address] [id number], [place] [address] Feb, IMMUNIZATIONS No Known Immunizations SOCIAL HISTORY Never Assessed REASON FOR VISIT EMR-[facility] [place] PLAN OF CARE VITAL SIGNS MEDICATIONS Unknown [...] anxiety, depression Medical History CT abdomen at [facility] 09-14-16 shows a ventral hernia [...]
--- OUTSIDE RECORDS SUMMARY | 2019-02-08 10:35 | XMS REPORT ---
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 Name Role Phone Migration, Doctor Unavailable Unavailable PROBLEMS Type Condition ICD9-CM Code NJR52-LQ Code Onset Dates Condition Status SNOMED Code Problem Essential hypertension with goal blood pressure less than 130\/80 I10 Active 33967309 Problem Hyperlipidemia E78.5 Active 44354738 Problem Fatty liver disease, nonalcoholic K76.0 Active 229135560 Problem Psoriasis vulgaris L40.0 Active 221998307 Problem Psoriasis L40.9 Active 1806199 Problem Dysthymia F34.1 Active 36891157 Problem Metabolic syndrome X E88.81 Active 238469322 Problem Substance abuse F19.10 Active 82316720 Problem Emotional lability R45.86 Active 08380486 Problem Dental caries K02.9 Active 86931734 Problem High risk medication use Z79.899 Active 984677848 Problem Pulmonary emphysema, unspecified emphysema type J43.9 Active 77158111 Problem Heartburn R12 Active 46338861 Problem Weight loss R63.4 Active 072893927 Problem Colon cancer screening Z12.11 Active 473371803 Problem Mixed hyperlipidemia E78.2 Active 139140530 Problem Breast cancer screening Z12.39 Active 829707338 Problem Lumbago with sciatica, left side M54.42 Active 343511878 Problem Colonoscopy refused Z53.20 Active 667502405 Problem Other chronic pain G89.29 Active 61298987 Problem Lumbago with sciatica, right side M54.41 Active 256683751125796 Problem Urinary frequency R35.0 Active 537192047 Problem Hematuria, unspecified type R31.9 Active 24687760 Problem Serum calcium elevated E83.52 Active 32430681 Problem Epigastric abdominal pain R10.13 Active 17728943 Problem 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 Active 181342764 Problem Hypertension I10 Active 98268438 Problem Elevated serum GGT level R74.8 Active 033433142 Problem Gynecologic exam normal Z01.419 Active 565473296 Problem Vitamin D deficiency E55.9 Active 41112648 Problem Hypomagnesemia E83.42 Active 104649173 Problem Atopic dermatitis L20.9 Active 35727639 Problem Hypoglycemia E16.2 Active 749740355 ALLERGIES No Information ENCOUNTERS Encounter Location Date Diagnosis [facility].[address] [address] [id number], [place] [id number] November, [facility] [address] [id number], [place] [address]55[address] Oct, High risk medication use Z79.899 [facility] [address] [id number][place] [address] Aug, [facility] [address] [id number], [place] 423908185 Jul, [facility] [address] [address] [id number], [place] [address] Jul, Serum calcium elevated E83.52 and Vitamin D deficiency E55.9 [facility] [address] [id number], [place] [address] Jul, [facility] [address] [place] [address] AVE [id number], [place] [address] Jul, Hypertension I10 ; Hypoglycemia E16.2 ; Colon cancer screening Z12.11 and Left upper quadrant pain R10.12 [facility] [address] [id number], [place] [address]90817333 Jul, Atopic dermatitis L20.9 [facility] [address] [id number], [place] [address] May, Serum calcium elevated E83.52 ; Fatty liver disease, nonalcoholic K76.0 ; Hypomagnesemia E83.42 ; Vitamin D deficiency E55.9 and Elevated liver enzymes R74.8 [facility] [address] [id number], [place] [address] Apr, High risk medication use Z79.899 ; Dysthymia F34.1 ; Fatty liver disease, nonalcoholic K76.0 ; Serum calcium elevated E83.52 and Viral gastroenteritis A08.[address] [address] [id number] [place] [id number] Feb, [facility] [address] [id number], [place] [address]47[address] November, Serum calcium elevated E83.52 and Elevated serum GGT level R74.[address] [id number], [place] [address] November, Fatty liver disease, nonalcoholic K76.[address] [address] [id number], [place] 629291740 November, High risk medication use Z79.899 ; Hematuria, unspecified type R31.9 ; Dental caries K02.9 ; Urinary frequency R35.0 and Substance abuse F19.[address] [address] [id number], [place] 352305[address] Sep, [facility] [address] [id number], [place] [address] Aug, [facility] [address] [id number], [place] [address] Aug, [facility] [address] [id number], [place] 365116180 Jul, [facility] [address] [id number], [place] [address]42[address] Jun, [facility] [address] [id number], [place] 295458355 Jun, Hematuria, unspecified type R31.9 [facility] [address] [id number], [place] [address] May, Lumbago with sciatica, left side M54.42 and Hematuria, unspecified type R31.[address] [facility] [address] [id number], [place] [address] May, Hematuria, unspecified type R31.[address] [facility] [address] [id number], [place] [address]14426[address] Apr, High risk medication use Z79.899 ; Lumbago with sciatica, left side M54.42 ; Lumbago with sciatica, right side M54.41 ; Other chronic pain G89.29 ; Emotional lability R45.86 and Colonoscopy refused Z53.[address] [facility] [address] [id number], [place] 745765316 Feb, [facility] [address] [id number], [place] 506386049 Feb, [facility] [address] [facility] [id number] [address] Jan, [facility] [address] [id number], [place] [address]35264 Jan, Psoriasis vulgaris L40.0 [facility] [address] [id number], [place] 535036179 Jan, High risk medication use Z79.899 [facility] [address] [id number], [place] 790963[address] Dec, Psoriasis vulgaris L40.0 [facility] [address] [id number], [place] 543877019 Oct, Mixed hyperlipidemia E78.2 and High risk medication use Z79.899 [facility] [address] [id number], [place] 557011790 Oct, [facility] [address] [id number], [place] 435236878 Oct, [facility] [address] [id number], [place] 95108[address] Oct, Hyperlipidemia E78.5 and Weight loss R63.[address] [id number], [place] 904435499 Oct, Gynecologic exam normal Z01.419 ; Breast cancer screening Z12.39 ; Weight loss R63.4 and Colon cancer screening Z12.[address] [id number] [place] [address] Jul, [facility] [address] [id number], [place] 429[address]235 Jul, High risk medication use Z79.[address] [id number], [place] 604094131 Jul, Metabolic syndrome X E88.81 ; Elevated serum GGT level R74.8 ; Dysthymia F34.1 and 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 [id number], [place] [address] Jun, [facility] [address] [id number], [place] 505156188 May, [facility] [address] [id number], [place] [address]88264[address] May, [facility] [address] [id number], [place] 690411355 May, High risk medication use Z79.[address] [id number], [place] 899463550 May, [facility] [address] [id number], [place] 050030623 May, Psoriasis vulgaris L40.0 and Other fdc (current) drug therapy Z79.[address] [id number], [place] 204359431 Mar, Hyperlipidemia E78.[address] [address] [id number], [place] 202021493 Mar, [facility] [address] [id number], [place] 499873619 Mar, [facility] [address] [id number], [place] 916380624 Mar, Fatty liver disease, nonalcoholic K76.0 and Hyperlipidemia E78.[address] [id number] [place] [id number] Mar, [facility] [address] [id number] [place] 1628[address] Mar, Fatty liver disease, nonalcoholic K76.0 ; Psoriasis L40.9 and Hyperlipidemia E78.[address] [address] [id number] [place] 940[address] Mar, [facility] [address] [id number], [place] [address]893[address] Feb, [facility] [address] [id number], [place] 496379920 Feb, [facility] [address] [id number], [place] 142606726 Jan, [facility] [address] [id number], [place] 985133736 Dec, [facility] [address] [id number], [place] 411807507 Dec, [facility] [address] [facility] [id number] [place] [address] November, [facility] [address] [id number], [place] 697274547 November, [facility] [address] [id number], [place] 748760833 Oct, [facility] [address] [id number], [place] 755797510 Oct, Fatty liver disease, nonalcoholic K76.0 and Encounter for immunization Z23 [facility] [place] [facility] [address] [facility] [id number] [place] [address] Oct, [facility] [address] [id number], [place] 808658184 Sep, Fatty liver disease, nonalcoholic K76.[address] [address] [id number], [place] 701920651 Sep, Fatty liver disease, nonalcoholic K76.0 ; High risk medication use Z79.899 ; Emotional lability R45.86 ; Hyperlipidemia E78.5 and Essential hypertension with goal blood pressure less than 130\/80 I10 [facility] [address] [facility] [id number] [place] [address] Sep, [facility] [address] [address] [id number], [place] 788280880 Aug, Mixed hyperlipidemia E78.2 and Heartburn R12 [facility] [address] [id number], [place] 762204709 Aug, High risk medication use Z79.899 ; Emotional lability R45.86 ; Pulmonary emphysema, unspecified emphysema type J43.9 and Heartburn R12 [facility] [address] [id number], [place] 727978407 Jul, [facility] [address] [id number], [place] 341484956 Jul, [facility] [address] [address] [id number], [place] 924382854 Jun, [facility] [address] [id number], [place] 648310381 May, Right upper quadrant abdominal pain R10.11 and Fatty liver K76.0 [facility] [address] [id number], [place] 401135621 Apr, Elevated AFP R77.2 ; Fatty liver K76.0 ; Unspecified cirrhosis of liver K74.60 ; High risk medication use Z79.899 ; Anhedonia R45.84 and Psoriasis L40.9 [facility] [address] [id number], [place] 066966586 Apr, [facility] [address] [id number], [place] 606628845 Apr, Elevated liver enzymes R74.8 [facility] [address] [address] [id number], [place] 870444811 Apr, Abdominal pain, left lower quadrant R10.32 ; Mixed hyperlipidemia E78.2 and Hyperlipidemia 272.4 [facility] [address] [id number], [place] [id number] 09 Apr, 2015 Encounter for routine gynecological examination Z01.419 and Breast cancer screening Z12.39 [facility] [address] [id number], [place] 489355260 Apr, Abdominal pain, left lower quadrant R10.32 ; Mixed hyperlipidemia E78.2 and Lumbago M54.5 [facility] [address] [id number], [place] 297880533 Mar, Psoriasis 696.1 ; Hyperlipidemia 272.4 and Chronic pain 338.29 [facility] [address]iento[address] [place] [address] AVE [id number], [place] [id number] Mar, [facility] [address] [id number], [place] 605331750 Mar, [facility] [address] [address] [place] [address] AVE [id number], [place] 874244476 Mar, Rash and nonspecific skin eruption 782.1 [facility] [address] [id number], [place] 696999528 Feb, Dermatitis 692.9 and Thoracic or lumbosacral neuritis or radiculitis, unspecified 724.4 [facility] [address] [id number], [place] 816040763 Feb, Dermatitis 692.9 and Follow-up examination V67.9 [facility] [address] [id number], [place] [id number] Jan, [facility] [address] [id number], [place] 456557196 Jan, Allergic dermatitis 692.9 [facility] [address] [id number], [place] 460700619 Jan, Rash and nonspecific skin eruption 782.[address] [facility] [address] [id number], [place] 708505685 Jan, [facility] [address] [id number], [place] 689761873 Jan, Dermatitis 692.9 and Environmental allergies V15.[address] [facility] [address] [id number], [place] 420470533 Dec, [facility] [address] [id number], [place] 144012069 Dec, [facility] [address] [id number], [place] 073312458 Dec, [facility] [address] [id number], [place] 898606237 November, [facility] [address] [id number], [place] 708433603 November, Muscle spasm 728.85 [facility] [address]00565100[place] [address] Oct, [facility] [id number] [place] [address] Oct, [facility] [address]00565100[place] [address] Sep, [facility] [address] [id number] [address] Sep, [facility] [address]00565100[place] [address] Sep, [facility] [id number] [place] [address] Sep, [facility] [address] [id number] [address] Sep, [facility] [id number] [place] [address] Sep, [facility] [place] [facility] [address] [id number] [place] [address] 16 Sep, 2014 [facility] [place] [facility] [address] [id number] [place] [address] 16 Sep, 2014 [facility] [place] [facility] [address] [id number] [place] [address] Aug, [facility] [place] [facility] [address] [id number] [place] [address] Aug, [facility] [place] [facility] [address] [id number] [place] [address] Jul, [facility] [place] [facility] [address] [id number] [place] [address] Jul, [facility] [place] [facility] [address] [id number] [place] [address] Jul, [facility] [place] [facility] [address] [id number] [place] [address] Jul, [facility] [place] [facility] [address] [id number] [place] [address] Jul, [facility] [place] [facility] [address] [id number] [place] [address] Jul, [facility] [place] [facility] [address] [id number] [place] [address] 18 Jun, 2014 [facility] [place] [facility] [address] [id number] [place] [address] Jun, [facility] [place] [facility] [address] [id number] [place] [address] Jun, [facility] [place] [facility] [address] [id number] [place] [address] Jun, [facility] [place] [facility] [address] [id number] [place] [address] 09 Jun, 2014 [facility] [place] [facility] [address] [id number] [place] [address] Jun, [facility] [place] [facility] [address] [id number] [place] [address] Jun, [facility] [place] [facility] [address] [id number] [place] [address] Jun, [facility] [place] [facility] [address] [id number] [place] [address] May, [facility] [place] [facility] [address] [id number] [place] [address] May, [facility] [place] [facility] [address] [id number] [place] [address] May, [facility] [place] [facility] [address] [id number] [place] [address] May, [facility] [place] [facility] [address] [id number] [place] [address] May, [facility] [place] [facility] [address] [id number] [place] [address] Apr, [facility] [place] [facility] [address] [id number] [place] [address] Apr, [facility] [place] [facility] [address] [id number] [place] [address] Apr, [facility] [place] [facility] [address] [id number] [place] [address] Apr, [facility] [place] [facility] [address] [id number] [place] [address] Apr, [facility] [place] [facility] [address] [id number] [place] [address] Apr, [facility] [place] [facility] [address] [id number] [place] [address] Apr, [facility] [place] [facility] [address] [id number] [place] [address] Apr, [facility] [place] [facility] [address] [id number] [place] [address] 20 Apr, 2013 [facility] [place] [facility] [address] [id number] [place] [address] 20 Apr, 2013 [facility] [place] [facility] [address] [id number] [place] [address] 17 Apr, 2013 [facility] [place] [facility] [address] [id number] [place] [address] 17 Apr, 2013 [facility] [place] [facility] [address] [id number] [place] [address] 16 Apr, 2013 [facility] [place] [facility] [address] [id number] [place] [address] 16 Apr, 2013 [facility] [place] [facility] [address] [id number] [place] [address] 15 Apr, 2013 [facility] [place] [facility] [address] [id number] [place] [address] 15 Apr, 2013 [facility] [place] [facility] [address] [id number] [place] [address] 14 Apr, 2014 [facility] [place] [facility] [address] [id number] [place] [address] 14 Apr, 2014 [facility] [place] [facility] [address] [id number] [place] [address] 13 Apr, 2014 [facility] [place] [facility] [address] [id number] [place] [address] 13 Apr, 2013 [facility] [place] [facility] [address] [id number] [place] [address] 06 Apr, 2013 [facility] [place] [facility] [address] [id number] [place] [address] 06 Apr, 2013 [facility] [place] [facility] [address] [id number] [place] [address] 05 Apr, 2013 [facility] [place] [facility] [address] [id number] [place] [address] Apr, [facility] [place] [facility] [address] [id number] [place] [address] Apr, [facility] [place] [facility] [address] [id number] [place] [address] Apr, [facility] [place] [facility] [address] [id number] [place] [address] Mar, [facility] [place] [facility] [address] [id number] [place] [address] Mar, [facility] [place] [facility] [address] [id number] [place] [address] Feb, [facility] [place] [facility] [address] [id number] [place] [address] Feb, [facility] [place] [facility] [address] [id number] [place] [address] Feb, [facility] [place] [facility] [address] [id number] [place] [address] Feb, [facility] [place] [facility] [address] [id number] [place] [address] Jan, [facility] [place] [facility] [address] [id number] [place] [address] Jan, [facility] [place] [facility] [address] [id number] [place] [address] Jan, [facility] [place] [facility] [address] [id number] [place] [address] Jan, [facility] [place] [facility] [address] [id number] [place] [address] Jan, [facility] [place] [facility] [address] [id number] [place] [address] Jan, [facility] [place] [facility] [address] [id number] [place] [address] Jan, [facility] [place] [facility] [address] [id number] [place] [address] Jan, [facility] [place] [facility] [address] [id number] [place] [address] Jan, [facility] [place] [facility] [address] [id number] [place] [address] Jan, [facility] [place] [facility] [address] [id number] [place] [address] Jan, [facility] [place] [facility] [address] [id number] [place] [address] Dec, [facility] [place] [facility] [address] [id number] [place] [address] Dec, [facility] [place] [facility] [address] [id number] [place] [address] Dec, [facility] [place] [facility] [address] [id number] [place] [address] Dec, [facility] [place] [facility] [address] [id number] [place] [address] November, [facility] [place] [facility] [address] [id number] [place] [address] November, [facility] [place] [facility] [address] [id number] [place] [address] November, [facility] [place] [facility] [address] [id number] [place] [address] November, [facility] [place] [facility] [address] [id number] [place] [address] November, [facility] [place] [facility] [address] [id number] [place] [address] November, [facility] [place] [facility] [address] [id number] [place] [address] November, [facility] [place] [facility] [address] [id number] [place] [address] November, [facility] [place] [facility] [address] [id number] [place] [address] November, [facility] [place] [facility] [address] [id number] [place] [address] November, [facility] [place] [facility] [address] [id number] [place] [address] November, [facility] [place] [facility] [address] [id number] [place] [address] Oct, [facility] [place] [facility] [address] [id number] [place] [address] Oct, [facility] [place] [facility] [address] [id number] [place] [address] Oct, [facility] [place] [facility] [address] [id number] [place] [address] Oct, [facility] [place] [facility] [address] [id number] [place] [address] Oct, [facility] [place] [facility] [address] [id number] [place] [address] Oct, [facility] [place] [facility] [address] [id number] [place] [address] 28 Sep, 2013 [facility] [place] [facility] [address] [id number] [place] [address] Sep, [facility] [place] [facility] [address] [id number] [place] [address] Sep, [facility] [place] [facility] [address] [id number] [place] [address] Sep, [facility] [place] [facility] [address] [id number] [place] [address] Sep, [facility] [place] [facility] [address] [id number] [place] [address] 18 Sep, 2013 [facility] [place] [facility] [address] [id number] [place] [address] Sep, [facility] [place] [facility] [address] [id number] [place] [address] Sep, [facility] [place] [facility] [address] [id number] [place] [address] Sep, [facility] [place] [facility] [address] [id number] [place] [address] Sep, [facility] [place] [facility] [address] [id number] [place] [address] Sep, [facility] [place] [facility] [address] [id number] [place] [address] Aug, [facility] [place] [facility] [address] [id number] [place] [address] Aug, [facility] [place] [facility] [address] [id number] [place] [address] Aug, [facility] [place] [facility] [address] [id number] [place] [address] Aug, [facility] [place] [facility] [address] [id number] [place] [address] Jul, [facility] [place] [facility] [address] [id number] [place] [address] Jul, [facility] [place] [facility] [address] [id number] [place] [address] Jul, [facility] [place] [facility] [address] [id number] [place] [address] Jul, [facility] [place] [facility] [address] [id number] [place] [address] Jul, [facility] [place] [facility] [address] [id number] [place] [address] Jul, [facility] [place] [facility] [address] [id number] [place] [address] Jul, [facility] [place] [facility] [address] [id number] [place] [address] Jul, [facility] [address] [id number] [place] [address] Jul, [facility] [address] [id number] [place] [address] Jul, [facility] [address] [id number] [place] [address] Jul, [facility] [address] [address] [id number] [place] [address] Jul, [facility] [address] [id number] [place] [address] Jul, [facility] [address] [id number] [place] [address] Jun, [facility] [address] [id number] [place] [address] Jun, [facility] [address] [id number] [place] [address] Jun, [facility] [address] [id number] [place] [address] Jun, [facility] [address] [id number] [place] [address] Jun, [facility] [address] [id number] [place] [address] Jun, [facility] [address] [id number] [place] [address] Jun, [facility] [place] [facility] [address] [id number] [place] [address] Jun, [facility] [address] [id number] [place] [address] Jun, [facility] [address] [id number] [place] [address] Jun, [facility] [address] [id number] [place] [address] Jun, [facility] [place] [facility] [address] [id number] [place] [address] Jun, [facility] [place] [facility] [address] [id number] [place] [address] Jun, [facility] [place] [facility] [address] [id number] [place] [address] Jun, [facility] [place] [facility] [address] [id number] [place] [address] Jun, [facility] [place] [facility] [address] [id number] [place] [address] Jun, [facility] [place] [facility] [address] [id number] [place] [address] Jun, [facility] [place] [facility] [address] [id number] [place] [address] Jun, [facility] [place] [facility] [address] [id number] [place] [address] Jun, [facility] [place] [facility] [address] [id number] [place] [address] Jun, [facility] [place] [facility] [address] [id number] [place] [address] Jun, [facility] [place] [facility] [address] [id number] [address] Jun, [facility] [place] [facility] [address] [id number] [place] [address] Jun, [facility] [place] [facility] [address] [id number] [place] [address] May, [facility] [place] [facility] [address] [id number] [address] May, [facility] [place] [facility] [address] [id number] [place] [address] Apr, [facility] [address] [facility] [id number] [id number] Mar[place] [facility] [address] [id number] [address] Feb, [facility] [address] [id number] [address] Feb, [facility] [id number] [address] Jan, [facility] [id number] [address] Jan, [facility] [id number] [address] November, [facility] [id number] [address] November, [facility] [id number] [address] Oct, [facility] [address] [id number] [address] Oct, [facility] [address] [facility] [id number] [id number] November, [facility] [address] [id number] [address] May, [facility] [address] [id number] [address] Feb, IMMUNIZATIONS No Known Immunizations SOCIAL HISTORY Never Assessed REASON FOR VISIT EMR-[facility] PLAN OF CARE VITAL SIGNS [...]
--- OUTSIDE RECORDS SUMMARY | 2019-02-08 10:35 | XMS REPORT ---
Author Author Migration, Doctor Organization [facility] Address Unknown Phone Unavailable Care Team Providers Care Vice President For Instruction Name Role Phone Migration, Doctor Unavailable Unavailable PROBLEMS Type Condition ICD9-CM Code UQN50-WQ Code Onset Dates Condition Status SNOMED Code Problem Essential hypertension with goal blood pressure less than 130\/80 I10 Active 93033098 Problem Hyperlipidemia E78.5 Active 55512539 Problem Fatty liver disease, nonalcoholic K76.0 Active 022268976 Problem Psoriasis vulgaris L40.0 Active 670800512 Problem Psoriasis L40.9 Active 5691704 Problem Dysthymia F34.1 Active 37608700 Problem Metabolic syndrome X E88.81 Active 788618595 Problem Substance abuse F19.10 Active 73584759 Problem Emotional lability R45.86 Active 98247415 Problem Dental caries K02.9 Active 07543079 Problem High risk medication use Z79.899 Active 146418040 Problem Pulmonary emphysema, unspecified emphysema type J43.9 Active 76716921 Problem Heartburn R12 Active 65886535 Problem Weight loss R63.4 Active 324095363 Problem Colon cancer screening Z12.11 Active 786953807 Problem Mixed hyperlipidemia E78.2 Active 240312299 Problem Breast cancer screening Z12.39 Active 595538331 Problem Lumbago with sciatica, left side M54.42 Active 796535400 Problem Colonoscopy refused Z53.20 Active 469311062 Problem Other chronic pain G89.29 Active 65646085 Problem Lumbago with sciatica, right side M54.41 Active 902464223971842 Problem Urinary frequency R35.0 Active 675610443 Problem Hematuria, unspecified type R31.9 Active 87202191 Problem Serum calcium elevated E83.52 Active 95939518 Problem Epigastric abdominal pain R10.13 Active 34960080 Problem 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 Active 235292375 Problem Hypertension I10 Active 22442055 Problem Elevated serum GGT level R74.8 Active 161646430 Problem Gynecologic exam normal Z01.419 Active 857663846 Problem Vitamin D deficiency E55.9 Active 69122253 Problem Hypomagnesemia E83.42 Active 204696748 Problem Atopic dermatitis L20.9 Active 68453375 Problem Hypoglycemia E16.2 Active 291122554 ALLERGIES No Information ENCOUNTERS Encounter Location Date Diagnosis [facility] [address] [id number] [place] [id number] November, [facility] [address] [id number] [place] [address] Oct, High risk medication use Z79.899 [facility] [address] [id number] [place] [id number] Aug, [facility] [address] [id number] [place] [address] Jul, [facility] [address] [address] [id number] [place] [id number] Jul, Serum calcium elevated E83.52 and Vitamin D deficiency E55.9 [facility] [address] [address] [id number] [place] [id number] Jul, [facility] [address] [place] [address] AVE [id number] [place] [id number] Jul, Hypertension I10 ; Hypoglycemia E16.2 ; Colon cancer screening Z12.11 and Left upper quadrant pain R10.12 [facility] [address] [address] [id number] [place] [address] Jul, Atopic dermatitis L20.9 [facility] [address] [address] [id number] [place] [address] May, Serum calcium elevated E83.52 ; Fatty liver disease, nonalcoholic K76.0 ; Hypomagnesemia E83.42 ; Vitamin D deficiency E55.9 and Elevated liver enzymes R74.8 [facility] [address] [id number] [place] [address] Apr, High risk medication use Z79.899 ; Dysthymia F34.1 ; Fatty liver disease, nonalcoholic K76.0 ; Serum calcium elevated E83.52 and Viral gastroenteritis A08.[address] [facility] [address] [id number] [place] [id number] Feb, [facility] [address] [id number] [place] [id number] November, Serum calcium elevated E83.52 and Elevated serum GGT level R74.[address] [address] [id number] [place] [address] November, Fatty liver disease, nonalcoholic K76.[address] [facility] [address] [id number] [place] [address] November, High risk medication use Z79.899 ; Hematuria, unspecified type R31.9 ; Dental caries K02.9 ; Urinary frequency R35.0 and Substance abuse F19.[address] [facility] [address] [id number] [place] [address] Sep, [facility] [address] [id number] [place] [address]87[address] Aug, [facility] [address] [id number] [place] 948[address] Aug, [facility] [address] [id number] [place] [address] Jul, [facility] [address] [id number] [place] [address] Jun, [facility] [address] [id number] [place] 508358[address] Jun, Hematuria, unspecified type R31.9 [facility] [address] [id number] [place] [id number] May, Lumbago with sciatica, left side M54.42 and Hematuria, unspecified type R31.[address] [facility] [address] [id number] [place] 88[address] May, Hematuria, unspecified type R31.[address] [facility] [address] [id number] [place] 0003[address] Apr, High risk medication use Z79.899 ; Lumbago with sciatica, left side M54.42 ; Lumbago with sciatica, right side M54.41 ; Other chronic pain G89.29 ; Emotional lability R45.86 and Colonoscopy refused Z53.[address] [id number] [place] [address] Feb, [facility] [address] [id number] [place] [address] Feb, [facility] [address] [facility] [id number] [place] [address] Jan, [facility] [address] [id number] [place] [address] Jan, Psoriasis vulgaris L40.0 [facility] [address] [id number] [place] 8[address] Jan, High risk medication use Z79.899 [facility] [address] [id number] [place] [address]37[address] Dec, Psoriasis vulgaris L40.0 [facility] [address] [id number] [place] [address] Oct, Mixed hyperlipidemia E78.2 and High risk medication use Z79.899 [facility] [address] [id number] [place] [id number] Oct, [facility] [address] [id number] [place] [id number] Oct, [facility] [address] [id number] [place] 69[address] Oct, Hyperlipidemia E78.5 and Weight loss R63.[address] [address] [id number] [place] [address] Oct, Gynecologic exam normal Z01.419 ; Breast cancer screening Z12.39 ; Weight loss R63.4 and Colon cancer screening Z12.[address] [id number] [place] [address] Jul, [facility] [address] [id number] [place] [address] Jul, High risk medication use Z79.[address] [id number] [place] [id number] Jul, Metabolic syndrome X E88.81 ; Elevated serum GGT level R74.8 ; Dysthymia F34.1 and 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 [id number] [place] [id number] Jun, [facility] [address] [id number] [place] 959915370 May, [facility] [address] [id number] [place] [address] May, [facility] [address] [id number] [place] 6743913[address] May, High risk medication use Z79.[address] [id number] [place] [address] May, [facility] [address] [id number] [place] 6745[address] May, Psoriasis vulgaris L40.0 and Other snf (current) drug therapy Z79.[address] [id number] [place] 498014717 Mar, Hyperlipidemia E78.[address] [id number] [place] 570420497 Mar, [facility] [address] [id number] [place] 687[address]61 Mar, [facility] [address] [id number] [place] 176414304 Mar, Fatty liver disease, nonalcoholic K76.0 and Hyperlipidemia E78.[address] [address] [id number] [place] [address] Mar, [facility] [address] [id number] [place] [address] Mar, Fatty liver disease, nonalcoholic K76.0 ; Psoriasis L40.9 and Hyperlipidemia E78.[address] [facility] [address] [id number] [place] [address] Mar, [facility] [place] [address] [id number] [place] 287[address] Feb, [facility] [address] [id number] [place] 885160728 Feb, [facility] [address] [id number] [place] 229786495 Jan, [facility] [address] [id number] [place] 125867678 Dec, [facility] [address] [id number] [place] 381388657 Dec, [facility] [address] [facility] [id number] [place] [address] November, [facility] [address] [id number] [place] 369353553 November, [facility] [address] [id number] [place] 745930754 Oct, [facility] [address] [id number] [place] 568184529 Oct, Fatty liver disease, nonalcoholic K76.0 and Encounter for immunization Z23 [facility] [address] [facility] [id number] [place] [address] Oct, [facility] [address] [id number] [place] 508146786 Sep, Fatty liver disease, nonalcoholic K76.[address] [id number] [place] 109128629 Sep, Fatty liver disease, nonalcoholic K76.0 ; High risk medication use Z79.899 ; Emotional lability R45.86 ; Hyperlipidemia E78.5 and Essential hypertension with goal blood pressure less than 130\/80 I10 [facility] [address] [facility] [id number] [place] [address] Sep, [facility] [address] [id number] [place] 477407527 Aug, Mixed hyperlipidemia E78.2 and Heartburn R12 [facility] [address] [id number] [place] 829817281 Aug, High risk medication use Z79.899 ; Emotional lability R45.86 ; Pulmonary emphysema, unspecified emphysema type J43.9 and Heartburn R12 [facility] [address] [id number] [place] 911264987 Jul, [facility] [address] [id number] [place] 675526987 Jul, [facility] [address] [id number] [place] 187040057 Jun, [facility] [address] [id number] [place] 917894312 May, Right upper quadrant abdominal pain R10.11 and Fatty liver K76.0 [facility] [address] [id number] [place] 574032534 Apr, Elevated AFP R77.2 ; Fatty liver K76.0 ; Unspecified cirrhosis of liver K74.60 ; High risk medication use Z79.899 ; Anhedonia R45.84 and Psoriasis L40.9 [facility] [address] [id number] [place] [id number] Apr, [facility] [address] [id number] [place] 839162719 Apr, Elevated liver enzymes R74.8 [facility] [address] [id number] [place] [id number] Apr, Abdominal pain, left lower quadrant R10.32 ; Mixed hyperlipidemia E78.2 and Hyperlipidemia 272.4 [facility] [address] [id number] [place] [id number] 09 Apr, 2015 Encounter for routine gynecological examination Z01.419 and Breast cancer screening Z12.39 [facility] [address] [id number] [place] [id number] Apr, Abdominal pain, left lower quadrant R10.32 ; Mixed hyperlipidemia E78.2 and Lumbago M54.5 [facility] [address] [id number] [place] 1410568[address] Mar, Psoriasis 696.1 ; Hyperlipidemia 272.4 and Chronic pain 338.29 [facility] [address] [place] [address] AVE [id number] [place] 039186546 Mar, [facility] [address] [id number] [place] 107620037 Mar, [facility] [address] [place] [address] AVE [id number] [place] 858756693 Mar, Rash and nonspecific skin eruption 782.1 [facility] [address] [id number] [place] [id number] Feb, Dermatitis 692.9 and Thoracic or lumbosacral neuritis or radiculitis, unspecified 724.4 [facility] [address] [id number] [place] 761701403 Feb, Dermatitis 692.9 and Follow-up examination V67.9 [facility] [address] [id number] [place] [id number] Jan, [facility] [address] [id number] [place] [id number] Jan, Allergic dermatitis 692.9 [facility] [address] [id number] [place] 604923408 Jan, Rash and nonspecific skin eruption 782.[address] [facility] [address] [id number] [place] [id number] Jan, [facility] [address] [id number] [place] 275792207 Jan, Dermatitis 692.9 and Environmental allergies V15.[address] [facility] [address] [id number] [place] 704263507 Dec, [facility] [address] [id number] [place] [id number] Dec, [facility] [address] [id number] [place] [id number] Dec, [facility] [address] [id number] [place] [id number] November, [facility] [address] [id number] [place] [id number] November, Muscle spasm 728.85 [facility] [address]00565100[place] [address] Oct, [facility] [address] [place] [id number] [place] [address] Oct, [facility] [id number] [address] Sep, [facility] [address] [place] [id number] [place] [address] Sep, [facility] [address]00565100[place] [address] Sep, [facility] [address] [place] [id number] [place] [address] Sep, [facility] [address] [id number] [place] [address] Sep, [facility] [id number] [place] [address] Sep, [facility] [place] [facility] [address] [id number] [place] [address] 16 Sep, 2014 [facility] [place] [facility] [address] [id number] [place] [address] 16 Sep, 2014 [facility] [place] [facility] [address] [id number] [place] [address] Aug, [facility] [place] [facility] [address] [id number] [place] [address] Aug, [facility] [place] [facility] [address] [id number] [place] [address] Jul, [facility] [place] [facility] [address] [id number] [place] [address] Jul, [facility] [place] [facility] [address] [id number] [place] [address] Jul, [facility] [place] [facility] [address] [id number] [place] [address] Jul, [facility] [place] [facility] [address] [id number] [place] [address] Jul, [facility] [place] [facility] [address] [id number] [place] [address] Jul, [facility] [place] [facility] [address] [id number] [place] [address] 18 Jun, 2014 [facility] [place] [facility] [address] [id number] [place] [address] Jun, [facility] [place] [facility] [address] [id number] [place] [address] Jun, [facility] [place] [facility] [address] [id number] [place] [address] Jun, [facility] [place] [facility] [address] [id number] [place] [address] 09 Jun, 2014 [facility] [place] [facility] [address] [id number] [place] [address] Jun, [facility] [place] [facility] [address] [id number] [place] [address] Jun, [facility] [place] [facility] [address] [id number] [place] [address] Jun, [facility] [place] [facility] [address] [id number] [place] [address] May, [facility] [place] [facility] [address] [id number] [place] [address] May, [facility] [place] [facility] [address] [id number] [place] [address] May, [facility] [place] [facility] [address] [id number] [place] [address] May, [facility] [place] [facility] [address] [id number] [place] [address] May, [facility] [place] [facility] [address] [id number] [place] [address] Apr, [facility] [place] [facility] [address] [id number] [place] [address] Apr, [facility] [place] [facility] [address] [id number] [place] [address] Apr, [facility] [place] [facility] [address] [id number] [place] [address] Apr, [facility] [place] [facility] [address] [id number] [place] [address] Apr, [facility] [place] [facility] [address] [id number] [place] [address] Apr, [facility] [place] [facility] [address] [id number] [place] [address] Apr, [facility] [place] [facility] [address] [id number] [place] [address] Apr, [facility] [place] [facility] [address] [id number] [place] [address] 20 Apr, 2013 [facility] [place] [facility] [address] [id number] [place] [address] 20 Apr, 2013 [facility] [place] [facility] [address] [id number] [place] [address] 17 Apr, 2013 [facility] [place] [facility] [address] [id number] [place] [address] 17 Apr, 2013 [facility] [place] [facility] [address] [id number] [place] [address] 16 Apr, 2013 [facility] [place] [facility] [address] [id number] [place] [address] 16 Apr, 2013 [facility] [place] [facility] [address] [id number] [place] [address] 15 Apr, 2013 [facility] [place] [facility] [address] [id number] [place] [address] 15 Apr, 2013 [facility] [place] [facility] [address] [id number] [place] [address] 14 Apr, 2014 [facility] [place] [facility] [address] [id number] [place] [address] 14 Apr, 2014 [facility] [place] [facility] [address] [id number] [place] [address] 13 Apr, 2014 [facility] [place] [facility] [address] [id number] [place] [address] 13 Apr, 2013 [facility] [place] [facility] [address] [id number] [place] [address] 06 Apr, 2013 [facility] [place] [facility] [address] [id number] [place] [address] 06 Apr, 2013 [facility] [place] [facility] [address] [id number] [place] [address] 05 Apr, 2013 [facility] [place] [facility] [address] [id number] [place] [address] Apr, [facility] [place] [facility] [address] [id number] [place] [address] Apr, [facility] [place] [facility] [address] [id number] [place] [address] Apr, [facility] [place] [facility] [address] [id number] [place] [address] Mar, [facility] [place] [facility] [address] [id number] [place] [address] Mar, [facility] [place] [facility] [address] [id number] [place] [address] Feb, [facility] [place] [facility] [address] [id number] [place] [address] Feb, [facility] [place] [facility] [address] [id number] [place] [address] Feb, [facility] [place] [facility] [address] [id number] [place] [address] Feb, [facility] [place] [facility] [address] [id number] [place] [address] Jan, [facility] [place] [facility] [address] [id number] [place] [address] Jan, [facility] [place] [facility] [address] [id number] [place] [address] Jan, [facility] [place] [facility] [address] [id number] [place] [address] Jan, [facility] [place] [facility] [address] [id number] [place] [address] Jan, [facility] [place] [facility] [address] [id number] [place] [address] Jan, [facility] [place] [facility] [address] [id number] [place] [address] Jan, [facility] [place] [facility] [address] [id number] [place] [address] Jan, [facility] [place] [facility] [address] [id number] [place] [address] Jan, [facility] [place] [facility] [address] [id number] [place] [address] Jan, [facility] [place] [facility] [address] [id number] [place] [address] Jan, [facility] [place] [facility] [address] [id number] [place] [address] Dec, [facility] [place] [facility] [address] [id number] [place] [address] Dec, [facility] [place] [facility] [address] [id number] [place] [address] Dec, [facility] [place] [facility] [address] [id number] [place] [address] Dec, [facility] [place] [facility] [address] [id number] [place] [address] November, [facility] [place] [facility] [address] [id number] [place] [address] November, [facility] [place] [facility] [address] [id number] [place] [address] November, [facility] [place] [facility] [address] [id number] [place] [address] November, [facility] [place] [facility] [address] [id number] [place] [address] November, [facility] [place] [facility] [address] [id number] [place] [address] November, [facility] [place] [facility] [address] [id number] [place] [address] November, [facility] [place] [facility] [address] [id number] [place] [address] November, [facility] [place] [facility] [address] [id number] [place] [address] November, [facility] [place] [facility] [address] [id number] [place] [address] November, [facility] [place] [facility] [address] [id number] [place] [address] November, [facility] [place] [facility] [address] [id number] [place] [address] Oct, [facility] [place] [facility] [address] [id number] [place] [address] Oct, [facility] [place] [facility] [address] [id number] [place] [address] Oct, [facility] [place] [facility] [address] [id number] [place] [address] Oct, [facility] [place] [facility] [address] [id number] [place] [address] Oct, [facility] [place] [facility] [address] [id number] [place] [address] Oct, [facility] [place] [facility] [address] [id number] [place] [address] 28 Sep, 2013 [facility] [place] [facility] [address] [id number] [place] [address] Sep, [facility] [place] [facility] [address] [id number] [place] [address] Sep, [facility] [place] [facility] [address] [id number] [place] [address] Sep, [facility] [place] [facility] [address] [id number] [place] [address] Sep, [facility] [place] [facility] [address] [id number] [place] [address] 18 Sep, 2013 [facility] [place] [facility] [address] [id number] [place] [address] Sep, [facility] [place] [facility] [address] [id number] [place] [address] Sep, [facility] [place] [facility] [address] [id number] [place] [address] Sep, [facility] [place] [facility] [address] [id number] [place] [address] Sep, [facility] [place] [facility] [address] [id number] [place] [address] Sep, [facility] [place] [facility] [address] [id number] [place] [address] Aug, [facility] [place] [facility] [address] [id number] [place] [address] Aug, [facility] [place] [facility] [address] [id number] [place] [address] Aug, [facility] [place] [facility] [address] [id number] [place] [address] Aug, [facility] [place] [facility] [address] [id number] [place] [address] Jul, [facility] [place] [facility] [address] [id number] [place] [address] Jul, [facility] [place] [facility] [address] [id number] [place] [address] Jul, [facility] [place] [facility] [address] [id number] [place] [address] Jul, [facility] [place] [facility] [address] [address] [id number] [place] [address] Jul, [facility] [place] [facility] [address] [id number] [place] [address] Jul, [facility] [place] [facility] [address] [id number] [place] [address] Jul, [facility] [place] [facility] [address] [id number] [place] [address] Jul, [facility] [address] [id number] [place] [address] Jul, [facility] [address] [id number] [place] [address] Jul, [facility] [address] [id number] [place] [address] Jul, [facility] [address] [id number] [place] [address] Jul, [facility] [address] [id number] [place] [address] Jul, [facility] [address] [id number] [place] [address] Jun, [facility] [address] [id number] [place] [address] Jun, [facility] [address] [id number] [place] [address] Jun, [facility] [address] [id number] [place] [address] Jun, [facility] [address] [id number] [place] [address] Jun, [facility] [address] [id number] [place] [address] Jun, [facility] [address] [id number] [place] [address] Jun, [facility] [place] [facility] [address] [id number] [place] [address] Jun, [facility] [address] [id number] [place] [address] Jun, [facility] [address] [id number] [place] [address] Jun, [facility] [address] [id number] [place] [address] Jun, [facility] [place] [facility] [address] [id number] [place] [address] Jun, [facility] [place] [facility] [address] [id number] [place] [address] Jun, [facility] [place] [facility] [address] [id number] [place] [address] Jun, [facility] [place] [facility] [address] [id number] [place] [address] Jun, [facility] [place] [facility] [address] [id number] [place] [address] Jun, [facility] [place] [facility] [address] [id number] [place] [address] Jun, [facility] [place] [facility] [address] [id number] [place] [address] Jun, [facility] [place] [facility] [address] [id number] [place] [address] Jun, [facility] [place] [facility] [address] [id number] [place] [address] Jun, [facility] [place] [facility] [address] [id number] [place] [address] Jun, [facility] [place] [facility] [address] [id number] [place] [address] Jun, [facility] [place] [facility] [address] [id number] [place] [address] Jun, [facility] [place] [facility] [address] [id number] [place] [address] May, [facility] [place] [facility] [address] [id number] [place] [address] May, [facility] [place] [facility] [address] [id number] [place] [address] Apr, [facility] [address] [facility] [id number] [id number] Mar, [facility] [address] [id number] [place] [address] Feb, [facility] [address] [id number] [place] [address] Feb, [facility] [id number] [address] Jan, [facility] [id number] [address] Jan, [facility] [id number] [place] [address] November, [facility] [id number] [address] November, [facility] [id number] [address] Oct, [facility] [address] [id number] [place] [address] Oct, [facility] [address] [facility] [id number] [id number] November, [facility] [address] [id number] [place] [address] May, [facility] [address] [id number] [place] [address] Feb, IMMUNIZATIONS No Known Immunizations SOCIAL HISTORY Never Assessed REASON FOR VISIT EMR-[facility] PLAN OF CARE VITAL SIGNS MEDICATIONS [...]
--- OUTSIDE RECORDS SUMMARY | 2019-02-08 10:36 | XMS REPORT ---
Author Author Migration, Doctor Organization [facility] Address Unknown Phone Unavailable Care Team Providers Care Employment And Claims Aide Name Role Phone Migration, Doctor Unavailable Unavailable PROBLEMS Type Condition ICD9-CM Code TAP79-IB Code Onset Dates Condition Status SNOMED Code Problem Essential hypertension with goal blood pressure less than 130\/80 I10 Active 73093151 Problem Hyperlipidemia E78.5 Active 27014419 Problem Fatty liver disease, nonalcoholic K76.0 Active 822167269 Problem Psoriasis vulgaris L40.0 Active 387935085 Problem Psoriasis L40.9 Active 0582428 Problem Dysthymia F34.1 Active 85974680 Problem Metabolic syndrome X E88.81 Active 603661964 Problem Substance abuse F19.10 Active 07400301 Problem Emotional lability R45.86 Active 93639325 Problem Dental caries K02.9 Active 74116089 Problem High risk medication use Z79.899 Active 845823019 Problem Pulmonary emphysema, unspecified emphysema type J43.9 Active 45347695 Problem Heartburn R12 Active 10395658 Problem Weight loss R63.4 Active 937478056 Problem Colon cancer screening Z12.11 Active 132759268 Problem Mixed hyperlipidemia E78.2 Active 521526512 Problem Breast cancer screening Z12.39 Active 954076132 Problem Lumbago with sciatica, left side M54.42 Active 783596518 Problem Colonoscopy refused Z53.20 Active 306617193 Problem Other chronic pain G89.29 Active 51779282 Problem Lumbago with sciatica, right side M54.41 Active [id number] Problem Urinary frequency R35.0 Active 620356664 Problem Hematuria, unspecified type R31.9 Active 52499802 Problem Serum calcium elevated E83.52 Active 36912408 Problem Epigastric abdominal pain R10.13 Active 07070691 Problem 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 Active 259317419 Problem Hypertension I10 Active 27282010 Problem Elevated serum GGT level R74.8 Active 078442152 Problem Gynecologic exam normal Z01.419 Active 649990209 Problem Vitamin D deficiency E55.9 Active 87147463 Problem Hypomagnesemia E83.42 Active 223885241 Problem Atopic dermatitis L20.9 Active 70847135 Problem Hypoglycemia E16.2 Active 903387580 ALLERGIES No Information ENCOUNTERS Encounter Location Date Diagnosis [facility] [address] [id number], [place] [id number] November, [facility] [address] [id number], [place] [id number] Oct, High risk medication use Z79.899 [facility] [address] [id number][place] [address]36[address] Aug, [facility] [address] [id number], [place] [address]46[address] Jul, [facility] [address] [address] [id number], [place] [address] Jul, Serum calcium elevated E83.52 and Vitamin D deficiency E55.9 [facility] [address] [id number], [place] [id number] Jul, [facility] [address] [place] [address] AVE [id number], [place] [id number] Jul, Hypertension I10 ; Hypoglycemia E16.2 ; Colon cancer screening Z12.11 and Left upper quadrant pain R10.12 [facility] [address] [id number], [place] [id number] Jul, Atopic dermatitis L20.9 [facility] [address] [id number], [place] [address] May, Serum calcium elevated E83.52 ; Fatty liver disease, nonalcoholic K76.0 ; Hypomagnesemia E83.42 ; Vitamin D deficiency E55.9 and Elevated liver enzymes R74.8 [facility] [address] [id number], [place] [address]649[address] Apr, High risk medication use Z79.899 ; Dysthymia F34.1 ; Fatty liver disease, nonalcoholic K76.0 ; Serum calcium elevated E83.52 and Viral gastroenteritis A08.[address] [facility] [address] [id number] [place] [id number] Feb, [facility] [address] [id number], [place] 9[address]3925[address] November, Serum calcium elevated E83.52 and Elevated serum GGT level R74.[address] [facility] [address] [id number], [place] 018[address]1957 November, Fatty liver disease, nonalcoholic K76.[address] [facility] [address] [id number], [place] 414[address]8858 November, High risk medication use Z79.899 ; Hematuria, unspecified type R31.9 ; Dental caries K02.9 ; Urinary frequency R35.0 and Substance abuse F19.[address] [facility] [address] [id number], [place] 135160962 Sep, [facility] [address] [id number], [place] [address] Aug, [facility] [address] [id number], [place] 463545569 Aug, [facility] [address] [id number], [place] 574275162 Jul, [facility] [address] [id number], [place] [id number] Jun, [facility] [address] [id number], [place] [address]25473[address] Jun, Hematuria, unspecified type R31.9 [facility] [address] [id number], [place] [address] May, Lumbago with sciatica, left side M54.42 and Hematuria, unspecified type R31.[address] [facility] [address] [id number], [place] 811179995 May, Hematuria, unspecified type R31.[address] [facility] [address] [id number], [place] 548519067 Apr, High risk medication use Z79.899 ; Lumbago with sciatica, left side M54.42 ; Lumbago with sciatica, right side M54.41 ; Other chronic pain G89.29 ; Emotional lability R45.86 and Colonoscopy refused Z53.[address] [facility] [address] [id number], [place] [address]10301286 Feb, [facility] [address] [id number], [place] 163305352 Feb, [facility] [address] [facility] [id number], [place] [address] Jan, [facility] [address] [id number], [place] [address]3703 Jan, Psoriasis vulgaris L40.0 [facility] [address] [id number], [place] 219529509 Jan, High risk medication use Z79.899 [facility] [address] [id number], [place] 379077130 Dec, Psoriasis vulgaris L40.0 [facility] [address] [id number], [place] 346230758 Oct, Mixed hyperlipidemia E78.2 and High risk medication use Z79.899 [facility] [address] [id number], [place] [address]10027243 Oct, [facility] [address] [id number], [place] 605767641 Oct, [facility] [address] [id number], [place] 638217493 Oct, Hyperlipidemia E78.5 and Weight loss R63.[address] [facility] [address] [id number], [place] 402208700 Oct, Gynecologic exam normal Z01.419 ; Breast cancer screening Z12.39 ; Weight loss R63.4 and Colon cancer screening Z12.[address] [facility] [address] [id number] [place] [address] Jul, [facility] [address] [id number], [place] [address]487[address] Jul, High risk medication use Z79.[address] [facility] [address] [id number], [place] 014804042 Jul, Metabolic syndrome X E88.81 ; Elevated serum GGT level R74.8 ; Dysthymia F34.1 and 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 [facility] [address] [id number], [place] 209051941 Jun, [facility] [address] [id number], [place] 519570243 May, [facility] [address] [id number], [place] 785922[address] May, [facility] [address] [id number], [place] 093917846 May, High risk medication use Z79.[address] [facility] [address] [id number], [place] 354790807 May, [facility] [address] [id number], [place] 5165725[address] May, Psoriasis vulgaris L40.0 and Other long-term (current) drug therapy Z79.[address] [facility] [address] [id number], [place] 194814341 Mar, Hyperlipidemia E78.[address] [facility] [address] [id number], [place] 620222164 Mar, [facility] [address] [id number], [place] 434865918 Mar, [facility] [address] [id number], [place] 313873151 Mar, Fatty liver disease, nonalcoholic K76.0 and Hyperlipidemia E78.[address] [facility] [address] [id number] [place] [address] Mar, [facility] [address] [id number] [place] 03[address] Mar, Fatty liver disease, nonalcoholic K76.0 ; Psoriasis L40.9 and Hyperlipidemia E78.[address] [facility] [address] [id number] [place] [address] Mar, [facility] [address] [id number] 9159924[address] Feb, [facility] [address] [id number], [place] 262895103 Feb, [facility] [address] [id number], [place] 323515339 Jan, [facility] [address] [id number], [place] 270781441 Dec, [facility] [address] [id number], [place] 595161629 Dec, [facility] [address] [facility] [id number], [place] [address] November, [facility] [address] [id number], [place] 884562409 November, [facility] [address] [id number], [place] 449105730 Oct, [facility] [address] [id number], [place] 668318512 Oct, Fatty liver disease, nonalcoholic K76.0 and Encounter for immunization Z23 [facility] [address] [id number], [place] [address] Oct, [facility] [address] [id number], [place] 042328894 Sep, Fatty liver disease, nonalcoholic K76.[address] [facility] [address] [id number], [place] 482173114 Sep, Fatty liver disease, nonalcoholic K76.0 ; High risk medication use Z79.899 ; Emotional lability R45.86 ; Hyperlipidemia E78.5 and Essential hypertension with goal blood pressure less than 130\/80 I10 [facility] [address] [id number] [place] [address] Sep, [facility] [address] [id number], [place] 703826523 Aug, Mixed hyperlipidemia E78.[address] [facility] [address] [id number], [place] 112209087 Aug, High risk medication use Z79.899 ; Emotional lability R45.86 ; Pulmonary emphysema, unspecified emphysema type J43.9 and Heartburn R12 [facility] [address] [id number], [place] [address]29[address] Jul, [facility] [address] [id number], [place] 753203538 Jul, [facility] [address] [id number], [place] [address]641812[address] Jun, [facility] [address] [id number], [place] 355610093 May, Right upper quadrant abdominal pain R10.[address] [facility] [address] [id number], [place] 478230551 Apr, Elevated AFP R77.2 ; Fatty liver K76.0 ; Unspecified cirrhosis of liver K74.60 ; High risk medication use Z79.899 ; Anhedonia R45.[address] [facility] [address] [id number], [place] 939322269 Apr, [facility] [address] [id number], [place] 667644127 Apr, Elevated liver enzymes R74.8 [facility] [address] [id number], [place] 825550966 Apr, Abdominal pain, left lower quadrant R10.32 ; Mixed hyperlipidemia E78.2 and Hyperlipidemia 272.4 [facility] [address] [id number], [place] 514967515 09 Apr, 2015 Encounter for routine gynecological examination Z01.419 and Breast cancer screening Z12.39 [facility] [address] [id number], [place] 421671695 Apr, Abdominal pain, left lower quadrant R10.32 ; Mixed hyperlipidemia E78.2 and Lumbago M54.5 [facility] [address] [id number], [place] 004674665 Mar, Psoriasis 696.1 ; Hyperlipidemia 272.4 and Chronic pain 338.29 [facility] [address] [place] [address] AVE [id number], [place] 840289860 Mar, [facility] [address] [id number], [place] 337903845 Mar, [facility] [address] [place] [address] AVE [id number], [place] [id number] Mar, Rash and nonspecific skin eruption 782.1 [facility] [address] [id number], [place] 194850109 Feb, Dermatitis 692.9 and Thoracic or lumbosacral neuritis or radiculitis, unspecified 724.4 [facility] [address] [id number], [place] 984713674 Feb, Dermatitis 692.9 and Follow-up examination V67.9 [facility] [address] [id number], [place] 744347453 Jan, [facility] [address] [id number], [place] 808652058 Jan, Allergic dermatitis 692.9 [facility] [address] [id number], [place] [id number] Jan, Rash and nonspecific skin eruption 782.[address] [facility] [address] [id number], [place] 659897079 Jan, [facility] [address] [id number], [place] 476992808 Jan, Dermatitis 692.9 and Environmental allergies V15.[address] [facility] [address] [id number], [place] 688733270 Dec, [facility] [address] [id number], [place] 454537129 Dec, [facility] [address] [id number], [place] 639668707 Dec, [facility] [address] [id number], [place] 026619419 November, [facility] [address] [id number], [place] 561154764 November, Muscle spasm 728.85 [facility] [address] [address] Oct, [facility] [id number] [place] [address] Oct, [facility] [address]00565100[place], [place] [address] Sep, [facility] [address] [id number], [place] [address] Sep, [facility] [address]00565100[place], [place] [address] Sep, [facility] [id number] [place] [address] Sep, [facility] [address] [id number], [place] [address] Sep, [facility] [id number] [place] [address] Sep, [facility] [place] [facility] [address] [id number] [place] [address] 16 Sep, 2014 [facility] [place] [facility] [address] [id number] [place] [address] 16 Sep, 2014 [facility] [place] [facility] [address] [id number] [place] [address] Aug, [facility] [place] [facility] [address] [id number] [place] [address] Aug, [facility] [place] [facility] [address] [id number] [place] [address] Jul, [facility] [place] [facility] [address] [id number] [place] [address] Jul, [facility] [place] [facility] [address] [id number] [place] [address] Jul, [facility] [place] [facility] [address] [id number] [place] [address] Jul, [facility] [place] [facility] [address] [id number] [place] [address] Jul, [facility] [place] [facility] [address] [id number] [place] [address] Jul, [facility] [place] [facility] [address] [id number] [place] [address] 18 Jun, 2014 [facility] [place] [facility] [address] [id number] [place] [address] Jun, [facility] [place] [facility] [address] [id number] [place] [address] Jun, [facility] [place] [facility] [address] [id number] [place] [address] Jun, [facility] [place] [facility] [address] [id number] [place] [address] 09 Jun, 2014 [facility] [place] [facility] [address] [id number], [place] [address] Jun, [facility] [place] [facility] [address] [id number] [place] [address] Jun, [facility] [place] [facility] [address] [id number] [place] [address] Jun, [facility] [place] [facility] [address] [id number] [place] [address] May, [facility] [place] [facility] [address] [id number] [place] [address] May, [facility] [place] [facility] [address] [id number] [place] [address] May, [facility] [place] [facility] [address] [id number] [place] [address] May, [facility] [place] [facility] [address] [id number] [place] [address] May, [facility] [place] [facility] [address] [id number] [place] [address] Apr, [facility] [place] [facility] [address] [id number] [place] [address] Apr, [facility] [place] [facility] [address] [id number] [place] [address] Apr, [facility] [place] [facility] [address] [id number], [place] [address] Apr, [facility] [place] [facility] [address] [id number], [place] [address] Apr, [facility] [place] [facility] [address] [id number] [place] [address] Apr, [facility] [place] [facility] [address] [id number] [place] [address] Apr, [facility] [place] [facility] [address] [id number] [place] [address] Apr, [facility] [place] [facility] [address] [id number] [place] [address] 20 Apr, 2013 [facility] [place] [facility] [address] [id number] [place] [address] 20 Apr, 2013 [facility] [place] [facility] [address] [id number] [place] [address] 17 Apr, 2013 [facility] [place] [facility] [address] [id number] [place] [address] 17 Apr, 2013 [facility] [place] [facility] [address] [id number] [place] [address] 16 Apr, 2013 [facility] [place] [facility] [address] [id number] [place] [address] 16 Apr, 2013 [facility] [place] [facility] [address] [id number] [place] [address] 15 Apr, 2013 [facility] [place] [facility] [address] [id number] [place] [address] 15 Apr, 2013 [facility] [place] [facility] [address] [id number] [place] [address] 14 Apr, 2014 [facility] [place] [facility] [address] [id number] [place] [address] 14 Apr, 2014 [facility] [place] [facility] [address] [id number] [place] [address] 13 Apr, 2014 [facility] [place] [facility] [address] [id number] [place] [address] 13 Apr, 2013 [facility] [place] [facility] [address] [id number] [place] [address] 06 Apr, 2013 [facility] [place] [facility] [address] [id number] [place] [address] 06 Apr, 2013 [facility] [place] [facility] [address] [id number] [place] [address] 05 Apr, 2013 [facility] [place] [facility] [address] [id number] [place] [address] Apr, [facility] [place] [facility] [address] [id number] [place] [address] Apr, [facility] [place] [facility] [address] [id number] [place] [address] Apr, [facility] [place] [facility] [address] [id number] [place] [address] Mar, [facility] [place] [facility] [address] [id number] [place] [address] Mar, [facility] [place] [facility] [address] [id number] [place] [address] Feb, [facility] [place] [facility] [address] [id number] [place] [address] Feb, [facility] [place] [facility] [address] [id number] [place] [address] Feb, [facility] [place] [facility] [address] [id number] [place] [address] Feb, [facility] [place] [facility] [address] [id number] [place] [address] Jan, [facility] [place] [facility] [address] [id number] [place] [address] Jan, [facility] [place] [facility] [address] [id number] [place] [address] Jan, [facility] [place] [facility] [address] [id number] [place] [address] Jan, [facility] [place] [facility] [address] [id number] [place] [address] Jan, [facility] [place] [facility] [address] [id number] [place] [address] Jan, [facility] [place] [facility] [address] [id number] [place] [address] Jan, [facility] [place] [facility] [address] [id number] [place] [address] Jan, [facility] [place] [facility] [address] [id number] [place] [address] Jan, [facility] [place] [facility] [address] [id number] [place] [address] Jan, [facility] [place] [facility] [address] [id number] [place] [address] Jan, [facility] [place] [facility] [address] [id number] [place] [address] Dec, [facility] [place] [facility] [address] [id number] [place] [address] Dec, [facility] [place] [facility] [address] [id number] [place] [address] Dec, [facility] [place] [facility] [address] [id number] [place] [address] Dec, [facility] [place] [facility] [address] [id number] [place] [address] November, [facility] [place] [facility] [address] [id number] [place] [address] November, [facility] [place] [facility] [address] [id number] [place] [address] November, [facility] [place] [facility] [address] [id number] [place] [address] November, [facility] [place] [facility] [address] [id number] [place] [address] November, [facility] [place] [facility] [address] [id number] [place] [address] November, [facility] [place] [facility] [address] [id number] [place] [address] November, [facility] [place] [facility] [address] [id number] [place] [address] November, [facility] [place] [facility] [address] [id number] [place] [address] November, [facility] [place] [facility] [address] [id number] [place] [address] November, [facility] [place] [facility] [address] [id number] [place] [address] November, [facility] [place] [facility] [address] [id number] [place] [address] Oct, [facility] [place] [facility] [address] [id number] [place] [address] Oct, [facility] [place] [facility] [address] [id number] [place] [address] Oct, [facility] [place] [facility] [address] [id number] [place] [address] Oct, [facility] [place] [facility] [address] [id number] [place] [address] Oct, [facility] [place] [facility] [address] [id number] [place] [address] Oct, [facility] [place] [facility] [address] [id number] [place] [address] 28 Sep, 2013 [facility] [place] [facility] [address] [id number] [place] [address] Sep, [facility] [place] [facility] [address] [id number] [place] [address] Sep, [facility] [place] [facility] [address] [id number] [place] [address] Sep, [facility] [place] [facility] [address] [id number] [place] [address] Sep, [facility] [place] [facility] [address] [id number] [place] [address] 18 Sep, 2013 [facility] [place] [facility] [address] [id number] [place] [address] Sep, [facility] [place] [facility] [address] [id number] [place] [address] Sep, [facility] [place] [facility] [address] [id number] [place] [address] Sep, [facility] [place] [facility] [address] [id number] [place] [address] Sep, [facility] [place] [facility] [address] [id number] [place] [address] Sep, [facility] [place] [facility] [address] [id number] [place] [address] Aug, [facility] [place] [facility] [address] [id number] [place] [address] Aug, [facility] [place] [facility] [address] [id number] [place] [address] Aug, [facility] [place] [facility] [address] [id number] [place] [address] Aug, [facility] [place] [facility] [address] [id number] [place] [address] Jul, [facility] [place] [facility] [address] [id number] [place] [address] Jul, [facility] [place] [facility] [address] [id number] [place] [address] Jul, [facility] [place] [facility] [address] [id number] [place] [address] Jul, [facility] [place] [facility] [address] [id number] [place] [address] Jul, [facility] [place] [facility] [address] [id number] [place] [address] Jul, [facility] [place] [facility] [address] [id number] [place] [address] Jul, [facility] [place] [facility] [address] [id number] [place] [address] Jul, [facility] [address] [id number] [place] [address] Jul, [facility] [address] [id number] [place] [address] Jul, [facility] [address] [id number] [place] [address] Jul, [facility] [address] [id number] [place] [address] Jul, [facility] [facility] [address] [id number] [place] [address] Jul, [facility] [address] [id number] [place] [address] Jun, [facility] [address] [id number] [place] [address] Jun, [facility] [address] [id number] [place] [address] Jun, [facility] [address] [id number] [place] [address] Jun, [facility] [address] [id number] [place] [address] Jun, [facility] [address] [id number] [place] [address] Jun, [facility] [address] [id number] [place] [address] Jun, [facility] [place] [facility] [address] [id number] [place] [address] Jun, [facility] [address] [id number] [place] [address] Jun, [facility] [address] [id number] [place] [address] Jun, [facility] [address] [id number] [place] [address] Jun, [facility] [place] [facility] [address] [id number] [place] [address] Jun, [facility] [place] [facility] [address] [id number] [place] [address] Jun, [facility] [place] [facility] [address] [id number] [place] [address] Jun, [facility] [place] [facility] [address] [id number] [place] [address] Jun, [facility] [place] [facility] [address] [id number] [place] [address] Jun, [facility] [place] [facility] [address] [id number] [place] [address] Jun, [facility] [place] [facility] [address] [id number] [place] [address] Jun, [facility] [place] [facility] [address] [id number] [place] [address] Jun, [facility] [place] [facility] [address] [id number] [place] [address] Jun, [facility] [place] [facility] [address] [id number] [place] [address] Jun, [facility] [place] [facility] [address] [id number], [place] [address] Jun, [facility] [place] [facility] [address] [id number] [place] [address] Jun, [facility] [place] [facility] [address] [id number] [place] [address] May, [facility] [place] [facility] [address] [id number], [place] [address] May, [facility] [place] [facility] [address] [id number], [place] [address] Apr, [facility] [address] [facility] [id number] [id number] Mar, [facility] [address] [id number] [address] Feb, [facility] [address] [id number] [address] Feb, [facility] [id number] [address] Jan, [facility] [id number] [address] Jan, [facility] [id number] [address] November, [facility] [id number] [address] November, [facility] [id number] [address] Oct, [facility] [address] [id number] [address] Oct, [facility] [address] [facility] [id number] [id number] November, [facility] [address] [id number] [address] May, [facility] [address] [id number] [address] Feb, IMMUNIZATIONS No Known Immunizations SOCIAL HISTORY [...] Medical History CT abdomen at [facility] 09-14-16 shows a ventral hernia and fatty [...]
--- OUTSIDE RECORDS SUMMARY | 2019-02-08 10:37 | XMS REPORT ---
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 Name Role Phone WILDA PATEL Unavailable PROBLEMS Type Condition ICD9-CM Code MGO43-RY Code Onset Dates Condition Status SNOMED Code Problem Emotional lability R45.86 Active 29163120 Problem Heartburn R12 Active 30359200 Problem High risk medication use Z79.899 Active 001074435 Problem Colon cancer screening Z12.11 Active 509213315 Problem Pulmonary emphysema, unspecified emphysema type J43.9 Active 62729083 Problem Mixed hyperlipidemia E78.2 Active 778499478 Problem Fatty liver disease, nonalcoholic K76.0 Active 553275465 Problem Colonoscopy refused Z53.20 Active 245457880 Problem Lumbago with sciatica, left side M54.42 Active 145951931 Problem Other chronic pain G89.29 Active 37610558 Problem Serum calcium elevated E83.52 Active 50574661 Problem Urinary frequency R35.0 Active 457089610 Problem Psoriasis L40.9 Active 7880071 Problem Hyperlipidemia E78.5 Active 16243725 Problem Essential hypertension with goal blood pressure less than 130\/80 I10 Active 13864092 Problem Dental caries K02.9 Active 08201810 Problem Lumbago with sciatica, right side M54.41 Active 215712024891994 Problem Substance abuse F19.10 Active 29629088 Problem Hematuria, unspecified type R31.9 Active 46448268 Problem Metabolic syndrome X E88.81 Active 191904818 Problem Elevated serum GGT level R74.8 Active 695889188 Problem Psoriasis vulgaris L40.0 Active 159870195 Problem Dysthymia F34.1 Active 72823503 Problem Breast cancer screening Z12.39 Active 374272367 Problem Weight loss R63.4 Active 580327448 Problem 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 Active 635688338 Problem Gynecologic exam normal Z01.419 Active 318439900 ALLERGIES Substance Reaction Event Type Date Status Codeine tachycardia Drug Allergy Apr, Active ENCOUNTERS En[facility] Date [facility] [address] [id number] [id number] Apr, High risk medication use Z79.899 ; Dysthymia F34.1 ; Fatty liver disease, nonalcoholic K76.0 ; Serum calcium elevated E83.52 and Viral gastroenteritis A08.4 [facility] [address] [id number][place] [address] Feb, [facility] [address] [id number][place] [address] November, Serum calcium elevated E83.52 and Elevated serum GGT level R74.8 [facility] [address] [id number][place] [address] November, Fatty liver disease, nonalcoholic K76.0 [facility] [address] [id number], [place] [address] November, High risk medication use Z79.899 ; Hematuria, unspecified type R31.9 ; Dental caries K02.9 ; Urinary frequency R35.0 and Substance abuse F19.10 [facility] [address] [id number], [place] [id number] Sep, [facility] [address] [id number][place] [id number] Aug, [facility] [address] [id number], [place] [address] Aug, [facility] [address] [id number], [place] 115476[address] Jul, [facility] [address] [id number], [place] [address]48[address] Jun, [facility] [address] [id number][place] [address] Jun, Hematuria, unspecified type R31.[address] [facility] [address] [id number], [place] [address] May, Lumbago with sciatica, left side M54.42 and Hematuria, unspecified type R31.[address] [facility] [address] [id number], [place] [id number] May, Hematuria, unspecified type R31.[address] [facility] [address] [id number], [place] [address] Apr, High risk medication use Z79.899 ; Lumbago with sciatica, left side M54.42 ; Lumbago with sciatica, right side M54.41 ; Other chronic pain G89.29 ; Emotional lability R45.86 and Colonoscopy refused Z53.[address] [facility] [address] [id number], [place] [address] Feb, [facility] [address] [id number], [place] [address] Feb, [facility] [address] [facility] [id number], [place] [address] Jan, [facility] [address] [id number], [place] [address] Jan, Psoriasis vulgaris L40.[address] [facility] [address] [id number], [place] 458[address]127 Jan, High risk medication use Z79.[address] [facility] [address] [id number], [place] [address] Dec, Psoriasis vulgaris L40.[address] [facility] [address] [id number], [place] [address] Oct, Mixed hyperlipidemia E78.2 and High risk medication use Z79.[address] [facility] [address] [id number], [place] [address] Oct, [facility] [address] [id number], [place] [address] Oct, [facility] [address] [id number] [place] [address] Oct, Hyperlipidemia E78.5 and Weight loss R63.[address] [facility] [address] [id number], [place] 871259[address] Oct, Gynecologic exam normal Z01.419 ; Breast cancer screening Z12.39 ; Weight loss R63.4 and Colon cancer screening Z12.[address] [facility] [address] [id number], [place] [address]40[address] Jul, [facility] [address] [id number], [place] [address] Jul, High risk medication use Z79.[address] [facility] [address] [id number], [place] [address]338[address] Jul, Metabolic syndrome X E88.81 ; Elevated serum GGT level R74.8 ; Dysthymia F34.1 and 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 [facility] [address] [id number], [place] [address] Jun, [facility] [address] [id number], [place] [address] May, [facility] [address] [id number], [place] [address] May, [facility] [address] [id number], [place] [address] May, High risk medication use Z79.[address] [facility] [address] [id number], [place] [address]842624[address] May, [facility] [address] [id number], [place] 906405790 08 May, 2016 Psoriasis vulgaris L40.0 and 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.[address] [facility] [address] [id number], [place] [address]1947[address] Mar, Hyperlipidemia E78.[address] [facility] [address] [id number] [place] [id number] Mar, [facility] [address] [id number] [place] [address] Mar, [facility] [address] [id number] [place] [address]47[address] Mar, Fatty liver disease, nonalcoholic K76.0 and Hyperlipidemia E78.[address] [facility] [address] [id number] [place] 574508[address] Mar, [facility] [address] [id number] [place] [address] Mar, Fatty liver disease, nonalcoholic K76.0 ; Psoriasis L40.9 and Hyperlipidemia E78.[address] [facility] [address] [id number] [id number] Mar, [facility] [address] [id number] [place] [address] Feb, [facility] [address] [id number], [place] [address]443729[address] Feb, [facility] [address] [id number], [place] 639308[address] Jan, [facility] [address] [id number], [place] [address]409[address] Dec, [facility] [address] [id number], [place] 37816[address]84 Dec, [facility] [address] [facility] [id number], [place] [address] November, [facility] [address] [id number], [place] 283779[address] November, [facility] [address] [id number], [place] 182767[address] Oct, [facility] [address] [id number], [place] 40065[address]80 Oct, Fatty liver disease, nonalcoholic K76.0 and Encounter for immunization Z23 [facility] [address] [facility] [id number], [place] [address] Oct, [facility] [address] [id number], [place] 583599394 Sep, Fatty liver disease, nonalcoholic K76.0 [facility] [address] [id number], [place] 395049932 Sep, Fatty liver disease, nonalcoholic K76.0 ; High risk medication use Z79.899 ; Emotional lability R45.86 ; Hyperlipidemia E78.5 and Essential hypertension with goal blood pressure less than 130\/80 I10 [facility] [address] [id number], [place] [address] Sep, [facility] [address] [id number], [place] 943470321 Aug, Mixed hyperlipidemia E78.2 and Heartburn R12 [facility] [address] [id number], [place] 177232017 Aug, High risk medication use Z79.899 ; Emotional lability R45.86 ; Pulmonary emphysema, unspecified emphysema type J43.9 and Heartburn R12 [facility] [address] [id number], [place] [id number] Jul, [facility] [address] [id number], [place] [id number] Jul, [facility] [address] [id number], [place] 722866630 Jun, [facility] [address] [id number], [place] [address]387[address] May, Right upper quadrant abdominal pain R10.11 and Fatty liver K76.0 [facility] [address] [id number], [place] 564458238 Apr, Elevated AFP R77.2 ; Fatty liver K76.0 ; Unspecified cirrhosis of liver K74.60 ; High risk medication use Z79.899 ; Anhedonia R45.84 and Psoriasis L40.9 [facility] Sarmiento[address] [place] [address] AV [id number], [place] [id number] Apr, [facility] [address] [place] [address] AVE [id number], [place] 880663160 Apr, Elevated liver enzymes R74.8 [facility] Sarmiento[address] [place] [address] AV [id number], [place] 329196147 Apr, Abdominal pain, left lower quadrant R10.32 ; Mixed hyperlipidemia E78.2 and Hyperlipidemia 272.4 [facility] [address] [place] [address] AV [id number], [place] [id number] 09 Apr, 2015 Encounter for routine gynecological examination Z01.419 and Breast cancer screening Z12.39 [facility] [address] [place] [address] AV [id number], [place] [id number] Apr, Abdominal pain, left lower quadrant R10.32 ; Mixed hyperlipidemia E78.2 and Lumbago M54.5 [facility] [address] [place] [address] AVE [id number], [place] [id number] 17 Mar, 2015 Psoriasis 696.1 ; Hyperlipidemia 272.4 and Chronic pain 338.29 [facility] Sarmiento[address] [place] [address] AVE [id number], [place] [id number] Mar, [facility] [address] AV [id number], [place] 179403255 Mar, [facility] [address] [place] [address] AVE [id number], [place] [id number] Mar, Rash and nonspecific skin eruption 782.1 [facility] JAIR Sarmiento[address] [place] [address] AVE [id number], [place] 777235871 Feb, Dermatitis 692.9 and Thoracic or lumbosacral neuritis or radiculitis, unspecified 724.4 [facility] JAIR S[address]iento[address] [place] [address] AVE [id number], [place] [id number] Feb, Dermatitis 692.9 and Follow-up examination V67.9 [facility] [address] [id number] [place] 84299[address]77 Jan, [facility] [address] [id number] [place] 4613[address]141 Jan, Allergic dermatitis 692.[address] [facility] [address] [id number], [place] 129348145 Jan, Rash and nonspecific skin eruption 782.[address] [facility] [address] [id number] [place] [id number] Jan, [facility] [address] [id number], [place] 485244762 Jan, Dermatitis 692.9 and Environmental allergies V15.[address] [facility] [address] [id number], [place] 859847559 Dec, [facility] [address] [id number], [place] 856880073 Dec, [facility] [address] [id number], [place] 527837345 Dec, [facility] [address] [id number], [place] 356351415 November, [facility] [address] [id number], [place] 923412560 November, Muscle spasm 728.85 [facility] [address] [id number], [place] [address] Oct, [facility] [address]00565100[place], [place] [address] Oct, [facility] [address]00565100[place], [place] [address] Sep, [facility] [address]00565100[place], [place] [address] Sep, [facility] [address]00565100[place], [place] [address] Sep, [facility] [place] [facility] [address] [id number] [place] [address] 20 Sep, 2014 [facility] [place] [facility] [address] [id number] [place] [address] Sep, [facility] [place] [facility] [address] [id number] [place] [address] 19 Sep, 2014 [facility] [place] [facility] [address] [id number] [place] [address] 16 Sep, 2014 [facility] [place] [facility] [address] [id number] [place] [address] 16 Sep, 2014 [facility] [place] [facility] [address] [id number] [place] [address] Aug, [facility] [place] [facility] [address] [id number] [place] [address] Aug, [facility] [place] [facility] [address] [id number] [place] [address] Jul, [facility] [place] [facility] [address] [id number] [place] [address] Jul, [facility] [place] [facility] [address] [id number] [place] [address] Jul, [facility] [place] [facility] [address] [id number] [place] [address] Jul, [facility] [place] [facility] [address] [id number] [place] [address] Jul, [facility] [place] [facility] [address] [id number] [place] [address] Jul, [facility] [place] [facility] [address] [id number] [place] [address] Jun, [facility] [place] [facility] [address] [id number] [place] [address] Jun, [facility] [place] [facility] [address] [id number] [place] [address] Jun, [facility] [place] [facility] [address] [id number] [place] [address] Jun, [facility] [place] [facility] [address] [id number] [place] [address] Jun, [facility] [place] [facility] [address] [id number] [place] [address] Jun, [facility] [place] [facility] [address] [id number] [place] [address] Jun, [facility] [place] [facility] [address] [id number] [place] [address] Jun, [facility] [place] [facility] [address] [id number] [place] [address] May, [facility] [place] [facility] [address] [id number] [place] [address] May, [facility] [place] [facility] [address] [id number] [place] [address] May, [facility] [place] [facility] [address] [id number] [place] [address] May, [facility] [place] [facility] [address] [id number] [place] [address] May, [facility] [place] [facility] [address] [id number], [place] [address] Apr, [facility] [place] [facility] [address] [id number], [place] [address] Apr, [facility] [place] [facility] [address] [id number] [place] [address] Apr, [facility] [place] [facility] [address] [id number] [place] [address] Apr, [facility] [place] [facility] [address] [id number] [place] [address] Apr, [facility] [place] [facility] [address] [id number] [place] [address] 23 Apr, 2013 [facility] [place] [facility] [address] [id number] [place] [address] 21 Apr, 2014 [facility] [place] [facility] [address] [id number] [place] [address] 21 Apr, 2014 [facility] [place] [facility] [address] [id number] [place] [address] 20 Apr, 2014 [facility] [place] [facility] [address] [id number] [place] [address] 20 Apr, 2014 [facility] [place] [facility] [address] [id number] [place] [address] 17 Apr, 2014 [facility] [place] [facility] [address] [id number] [place] [address] 17 Apr, 2013 [facility] [place] [facility] [address] [id number] [place] [address] 16 Apr, 2014 [facility] [place] [facility] [address] [id number] [place] [address] 16 Apr, 2014 [facility] [place] [facility] [address] [id number] [place] [address] 15 Apr, 2014 [facility] [place] [facility] [address] [id number] [place] [address] 15 Apr, 2014 [facility] [place] [facility] [address] [id number] [place] [address] 14 Apr, 2014 [facility] [place] [facility] [address] [id number] [place] [address] 14 Apr, 2014 [facility] [place] [facility] [address] [id number] [place] [address] 13 Apr, 2014 [facility] [place] [facility] [address] [id number] [place] [address] 13 Apr, 2014 [facility] [place] [facility] [address] [id number] [place] [address] Apr, [facility] [place] [facility] [address] [id number] [place] [address] Apr, [facility] [place] [facility] [address] [id number] [place] [address] Apr, [facility] [place] [facility] [address] [id number] [place] [address] Apr, [facility] [place] [facility] [address] [id number] [place] [address] Apr, [facility] [place] [facility] [address] [id number] [place] [address] Apr, [facility] [place] [facility] [address] [id number] [place] [address] Mar, [facility] [place] [facility] [address] [id number] [place] [address] Mar, [facility] [place] [facility] [address] [id number] [place] [address] Feb, [facility] [place] [facility] [address] [id number] [place] [address] Feb, [facility] [place] [facility] [address] [id number] [place] [address] Feb, [facility] [place] [facility] [address] [id number] [place] [address] Feb, [facility] [place] [facility] [address] [id number], [place] [address] Jan, [facility] [place] [facility] [address] [id number] [place] [address] Jan, [facility] [place] [facility] [address] [id number] [place] [address] Jan, [facility] [place] [facility] [address] [id number] [place] [address] Jan, [facility] [place] [facility] [address] [id number], [place] [address] Jan, [facility] [place] [facility] [address] [id number] [place] [address] Jan, [facility] [place] [facility] [address] [id number] [place] [address] Jan, [facility] [place] [facility] [address] [id number] [place] [address] Jan, [facility] [place] [facility] [address] [id number] [place] [address] Jan, [facility] [place] [facility] [address] [id number] [place] [address] Jan, [facility] [place] [facility] [address] [id number] [place] [address] Jan, [facility] [place] [facility] [address] [id number] [place] [address] Dec, [facility] [place] [facility] [address] [id number] [place] [address] Dec, [facility] [place] [facility] [address] [id number] [place] [address] Dec, [facility] [place] [facility] [address] [id number] [place] [address] Dec, [facility] [place] [facility] [address] [id number] [place] [address] November, [facility] [place] [facility] [address] [id number] [place] [address] November, [facility] [place] [facility] [address] [id number] [place] [address] November, [facility] [place] [facility] [address] [id number] [place] [address] November, [facility] [place] [facility] [address] [id number] [place] [address] November, [facility] [place] [facility] [address] [id number] [place] [address] November, [facility] [place] [facility] [address] [id number] [place] [address] November, [facility] [place] [facility] [address] [id number] [place] [address] November, [facility] [place] [facility] [address] [id number] [place] [address] November, [facility] [place] [facility] [address] [id number] [place] [address] November, [facility] [place] [facility] [address] [id number] [place] [address] November, [facility] [place] [facility] [address] [id number] [place] [address] Oct, [facility] [place] [facility] [address] [id number] [place] [address] Oct, [facility] [place] [facility] [address] [id number] [place] [address] Oct, [facility] [place] [facility] [address] [id number] [place] [address] Oct, [facility] [place] [facility] [address] [id number] [place] [address] Oct, [facility] [place] [facility] [address] [id number] [place] [address] Oct, [facility] [place] [facility] [address] [id number] [place] [address] Sep, [facility] [place] [facility] [address] [id number] [place] [address] Sep, [facility] [place] [facility] [address] [id number] [place] [address] Sep, [facility] [place] [facility] [address] [id number] [place] [address] Sep, [facility] [place] [facility] [address] [id number] [place] [address] Sep, [facility] [place] [facility] [address] [id number] [place] [address] Sep, [facility] [place] [facility] [address] [id number] [place] [address] Sep, [facility] [place] [facility] [address] [id number] [place] [address] Sep, [facility] [place] [facility] [address] [id number] [place] [address] Sep, [facility] [place] [facility] [address] [id number] [place] [address] Sep, [facility] [place] [facility] [address] [id number] [place] [address] Sep, [facility] [place] [facility] [address] [id number] [place] [address] Aug, [facility] [place] [facility] [address] [id number] [place] [address] Aug, [facility] [place] [facility] [address] [id number] [place] [address] Aug, [facility] [place] [facility] [address] [id number] [place] [address] Aug, [facility] [place] [facility] [address] [id number] [place] [address] Jul, [facility] [place] [facility] [address] [id number] [place] [address] Jul, [facility] [place] [facility] [address] [id number] [place] [address] Jul, [facility] [place] [facility] [address] [id number] [place] [address] Jul, [facility] [place] [facility] [address] [id number] [place] [address] Jul, [facility] [address] [id number] [place] [address] Jul, [facility] [address] [id number] [place] [address] Jul, [facility] [address] [id number] [place] [address] Jul, [facility] [address] [id number] [place] [address] Jul, [facility] [address] [id number] [place] [address] Jul, [facility] [address] [id number] [place] [address] Jul, [facility] [address] [id number] [place] [address] Jul, [facility] [address] [id number] [place] [address] Jul, [facility] [address] [id number] [place] [address] Jun, [facility] [address] [id number] [place] [address] Jun, [facility] [address] [id number] [place] [address] Jun, [facility] [address] [id number] [place] [address] Jun, [facility] [place] [facility] [address] [id number] [place] [address] Jun, [facility] [place] [facility] [address] [id number] [place] [address] Jun, [facility] [address] [id number] [place] [address] Jun, [facility] [address] [id number] [place] [address] Jun, 2012 [facility] [place] [facility] [address] [id number] [place] [address] Jun, [facility] [place] [facility] [address] [id number] [place] [address] Jun, [facility] [place] [facility] [address] [id number] [place] [address] Jun, [facility] [address] [id number] [place] [address] Jun, [facility] [place] [facility] [address] [id number] [place] [address] Jun, [facility] [place] [facility] [address] [id number] [place] [address] Jun, [facility] [place] [facility] [address] [id number] [place] [address] Jun, [facility] [place] [facility] [address] [id number] [place] [address] Jun, [facility] [place] [facility] [address] [id number], [place] [address] Jun, [facility] [place] [facility] [address] [id number], [place] [address] Jun, [facility] [place] [facility] [address] [id number], [place] [address] Jun, [facility] [place] [facility] [address] [id number], [place] [address] Jun, [facility] [place] [facility] [address] [id number], [place] [address] Jun, [facility] [place] [facility] [address] [facility] [id number], [place] [address] Jun, [facility] [place] [facility] [address] [id number], [place] [address] Jun, [facility] [address] [id number], [place] [address] May, [facility] [address] [id number], [place] [address] May, [facility] [address] [id number], [place] [address] Apr, [facility] [id number] [place] [id number] Mar, [facility] [id number], [place] [address] Feb, [facility] [id number], [place] [address] Feb, [facility] [id number], [place] [address] Jan, [facility] [id number], [place] [address] Jan, [facility] [id number], [place] [address] November, [facility] [id number], [place] [address] November, [facility] [address] [id number], [place] [address] Oct, [facility] [address] [id number], [place] [address] Oct, [facility] [address] [facility] [id number] [place] [id number] November, [facility] [id number], [place] [address] May, [facility] [address] [id number], [place] [address] Feb, IMMUNIZATIONS No Known Immunizations SOCIAL HISTORY Never Assessed REASON FOR VISIT anxiety bferrisma PLAN OF CARE Activity Details Follow Up 3 Months Reason:depression Pending Test TSH w/ FREE T4 Pending Test PTH (INTACT) Pending Test CMP Pending Test MAGNESIUM SERUM Pending Test PHOSPHORUS Pending Test GGT Pending Test CBC Pending Test CALCIUM, IONIZED Pending Test AFP TUMOR MARKER, SERUM Pending Test VITAMIN D, 25-H VITAL SIGNS Height 63 in 2018-05-15 Weight 163.2 lbs 2018-05-15 Temperature 99.3 degrees Fahrenheit 2018-05-15 Heart Rate 99 bpm 2018-05-15 Respiratory Rate 20 2018-05-15 Oximetry 97 % 2018-05-15 BMI 28.91 kg/m2 2018-05-15 Blood pressure systolic 126 mmHg 2018-05-15 Blood pressure diastolic 80 mmHg 2018-05-15 MEDICATIONS Medication Instructions Dosage Frequency Start Date End Date Duration Status Metformin HCl 500 MG TAKE 1 TABLET BY MOUTH TWICE DAILY WITH MORNING AND EVENING MEALS 30 Active Fenofibrate 145 MG TAKE 1 TABLET BY MOUTH ONCE DAILY 30 Active Promethazine HCl 12.5 MG Orally TID PRN 1 tablet as needed Apr, May, 05 days Active Dupilumab 300 MG/2ML 2 ml 30 day(s) Active HydrOXYzine HCl 25 MG Orally 1 time a day 1 tablet as needed Active Folic Acid 1 MG Orally Once a day 1 tablet 24h Jan, Active Atorvastatin Calcium 40 MG TAKE 1 TABLET BY MOUTH ONCE DAILY 30 Active Metoprolol Tartrate 50 MG TAKE 1 TABLET BY MOUTH EVERY DAY 30 Active Celexa 40 mg Orally Once a day 1 tablet 24h Active Multivitamins Not-Taking Tricor 145 MG Orally Once a day 1 tablet 24h Active Proventil HFA 108 (90 Base) MCG/ACT INHALE 2 PUFFS FOUR TIMES DAILY NEEDED 25 Active Citalopram Hydrobromide 40 MG TAKE 1 TABLET BY MOUTH ONCE DAILY 90 Active Remeron 30 MG Orally Once a day take 1 tablet by Oral route before bedtime 1 time per day 24h Active Cyclobenzaprine HCl 10 MG Orally 2 times a day as needed for pain 1 tablet 14 Oct, 2015 Not-Taking Mirtazapine 30 MG TAKE 1 TABLET BY MOUTH EVERY NIGHT AT BEDTIME 30 Active BusPIRone HCl 10 mg Orally Once a day 1 tablet 24h 90 days Active Omeprazole 20 MG Orally Once a day before a meal 1 capsule Active Lisinopril 10 mg TAKE 1 TABLET BY MOUTH ONCE DAILY 30 Active Crestor 20 mg Orally Once a day 1 tablet 24h 28 Mar, 2016 Active RESULTS Name Result Date Reference Range URINE DRUG SCREEN (IN HOUSE) 2018-05-15 Lot # [id number] Exp date 09/2019 Control POSITIVE COCAINE NEGATIVE AMPH NEGATIVE MTD NEGATIVE THC POSITIVE OPIATE NEGATIVE BENZO POSITIVE PCP NEGATIVE BAR NEGATIVE OXY NEGATIVE MAMP POSITIVE BUP NEGATIVE MDMA NEGATIVE TCA NEGATIVE PROCEDURES Procedure Date Ordered Result Body Site ASSAY OF PHOSPHORUS May 15, 2018 ASSAY OF PARATHORMONE May 15, 2018 ASSAY OF GGT May 15, 2018 ALPHA-FETOPROTEIN, SERUM May 15, 2018 COMPREHEN METABOLIC PANEL May 15, 2018 ASSAY OF CALCIUM May 15, 2018 ASSAY OF VITAMIN D May 15, 2018 ASSAY OF MAGNESIUM May 15, 2018 ASSAY THYROID STIM HORMONE May 15, 2018 ROUTINE VENIPUNCTURE 2018-05-15 N/A ASSAY OF FREE THYROXINE May 15, 2018 COMPLETE CBC W/AUTO DIFF WBC May 15, 2018 DRUG TEST PRSMV DIR OPT OBS May 15, 2018 INSTRUCTIONS MEDICATIONS ADMINISTERED No Known Medications MEDICAL (GENERAL) HISTORY Type Description Date Medical History hypertension Medical History gastroesophageal reflux disease (GERD) Medical History hyperlipidemia Medical History obesity Medical History chronic pain Medical History psoriasis Medical History abnormal liver enzymes, fatty liver disease Medical History abdominal tumor Medical History anxiety, depression Medical History [facility] 09-14-16 shows a ventral hernia and fatty liver disease Medical History Pt no-showed colonoscopy Medical History no showed mammogram Surgical History tonsillectomy Surgical History appendectomy 03/2011 Surgical History hysterectomy, total with bilateral salpingo-oophorectomy (BSO) 03/2011 Surgical History large abdominal tumor/uterus removed 2010 Hospitalization History past surgeries
--- OUTSIDE RECORDS SUMMARY | 2019-02-08 10:37 | XMS REPORT ---
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 Name Role Phone Migration, Doctor Unavailable Unavailable PROBLEMS Type Condition ICD9-CM Code GOR57-PD Code Onset Dates Condition Status SNOMED Code Problem Essential hypertension with goal blood pressure less than 130\/80 I10 Active 03253442 Problem Hyperlipidemia E78.5 Active 36679870 Problem Fatty liver disease, nonalcoholic K76.0 Active 742177843 Problem Psoriasis vulgaris L40.0 Active 571928266 Problem Psoriasis L40.9 Active 2970122 Problem Dysthymia F34.1 Active 26784597 Problem Metabolic syndrome X E88.81 Active 951611036 Problem Substance abuse F19.10 Active 47613529 Problem Emotional lability R45.86 Active 69710143 Problem Dental caries K02.9 Active 31003768 Problem High risk medication use Z79.899 Active 089713448 Problem Pulmonary emphysema, unspecified emphysema type J43.9 Active 69797352 Problem Heartburn R12 Active 70669589 Problem Weight loss R63.4 Active 800264811 Problem Colon cancer screening Z12.11 Active 902546102 Problem Mixed hyperlipidemia E78.2 Active 436376170 Problem Breast cancer screening Z12.39 Active 714742700 Problem Lumbago with sciatica, left side M54.42 Active 352998202 Problem Colonoscopy refused Z53.20 Active 388053915 Problem Other chronic pain G89.29 Active 53815708 Problem Lumbago with sciatica, right side M54.41 Active 911084433280447 Problem Urinary frequency R35.0 Active 811634752 Problem Hematuria, unspecified type R31.9 Active 89579650 Problem Serum calcium elevated E83.52 Active 00593487 Problem Epigastric abdominal pain R10.13 Active 64104719 Problem 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 Active 580982494 Problem Hypertension I10 Active 10759306 Problem Elevated serum GGT level R74.8 Active 917843447 Problem Gynecologic exam normal Z01.419 Active 101074891 Problem Vitamin D deficiency E55.9 Active 08491233 Problem Hypomagnesemia E83.42 Active 561885157 Problem Atopic dermatitis L20.9 Active 47303587 Problem Hypoglycemia E16.2 Active 531994397 ALLERGIES No Information ENCOUNTERS Encounter Location Date Diagnosis [address] [id number] [id number] Oct, [facility] [address] [id number][place] [id number] Aug, [facility] [address] [id number][place] [address] Jul, [facility] [address] [id number], [place] [address] Jul, Serum calcium elevated E83.52 and Vitamin D deficiency E55.9 [facility] [place] [address] AVE [id number], [place] 500454171 Jul, [facility] [place] [address] AVE [id number], [place] 354880005 Jul, Hypertension I10 ; Hypoglycemia E16.2 ; Colon cancer screening Z12.11 and Left upper quadrant pain R10.12 [facility] [place] [address] AVE [id number], [place] [address] Jul, Atopic dermatitis L20.9 [facility] [place] [address] AVE [id number], [place] 320476193 May, Serum calcium elevated E83.52 ; Fatty liver disease, nonalcoholic K76.0 ; Hypomagnesemia E83.42 ; Vitamin D deficiency E55.9 and Elevated liver enzymes R74.8 [facility] [address] [id number], [place] [address] Apr, High risk medication use Z79.899 ; Dysthymia F34.1 ; Fatty liver disease, nonalcoholic K76.0 ; Serum calcium elevated E83.52 and Viral gastroenteritis A08.4 [facility] [address] [id number], [place] [address] Feb, [facility] [address] [id number], [place] [address]99025[address] November, Serum calcium elevated E83.52 and Elevated serum GGT level R74.[address] [facility] [address] [id number] [place] [address] November, Fatty liver disease, nonalcoholic K76.[address] [facility] [address] [id number], [place] 071608[address] November, High risk medication use Z79.899 ; Hematuria, unspecified type R31.9 ; Dental caries K02.9 ; Urinary frequency R35.0 and Substance abuse F19.[address] [facility] [address] [id number], [place] 335[address] Sep, [facility] [address] [id number], [place] 6110712[address] Aug, [facility] [address] [id number], [place] [address]79[address] Aug, [facility] [address] [id number], [place] 382937376 Jul, [facility] [address] [id number], [place] 074446144 Jun, [facility] [address] [id number], [place] [address] Jun, Hematuria, unspecified type R31.[address] [facility] [address] [id number], [place] 75[address] May, Lumbago with sciatica, left side M54.42 and Hematuria, unspecified type R31.[address] [facility] [address] [id number], [place] [address] May, Hematuria, unspecified type R31.[address] [facility] [address] [id number], [place] 300727393 Apr, High risk medication use Z79.899 ; Lumbago with sciatica, left side M54.42 ; Lumbago with sciatica, right side M54.41 ; Other chronic pain G89.29 ; Emotional lability R45.86 and Colonoscopy refused Z53.[address] [facility] [address] [id number], [place] [address]521336[address] Feb, [facility] [address] [id number], [place] 92[address] Feb, [facility] [address] [facility] [id number], [place] [address] Jan, [facility] [address] [id number], [place] 148847250 Jan, Psoriasis vulgaris L40.[address] [facility] [address] [id number], [place] 577706[address] Jan, High risk medication use Z79.899 [facility] [address] [id number], [place] [address] Dec, Psoriasis vulgaris L40.0 [facility] [address] [id number], [place] 833507175 Oct, Mixed hyperlipidemia E78.2 and High risk medication use Z79.[address] [facility] [address] [id number], [place] 126918825 Oct, [facility] [address] [id number], [place] [address]291277[address] Oct, [facility] [address] [id number], [place] 573134416 Oct, Hyperlipidemia E78.5 and Weight loss R63.[address] [facility] [address] [id number], [place] 7197822[address] Oct, Gynecologic exam normal Z01.419 ; Breast cancer screening Z12.39 ; Weight loss R63.4 and Colon cancer screening Z12.[address] [facility] [address] [id number], [place] 661933449 Jul, [facility] [address] [id number] [place] [address] Jul, High risk medication use Z79.[address] [facility] [address] [id number], [place] 441903948 Jul, Metabolic syndrome X E88.81 ; Elevated serum GGT level R74.8 ; Dysthymia F34.1 and 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 [facility] [address] [id number], [place] 021336[address] Jun, [facility] [address] [id number], [place] 7210523[address] May, [facility] [address] [id number], [place] 22645[address] May, [facility] [address] [id number], [place] 910759730 May, High risk medication use Z79.[address] [facility] [address] [id number], [place] [address]254[address] May, [facility] [address] [id number], [place] 851555724 May, Psoriasis vulgaris L40.0 and Other nursing home (current) drug therapy Z79.[address] [facility] [address] [id number], [place] 396131049 Mar, Hyperlipidemia E78.[address] [facility] [address] [id number], [place] 85[address] Mar, [facility] [address] [id number] [place] [address] Mar, [facility] [address] [id number], [place] 063888229 Mar, Fatty liver disease, nonalcoholic K76.0 and Hyperlipidemia E78.[address] [facility] [address] [id number], [place] 378460134 Mar, [facility] [address] [id number] [place] 6735[address]476 Mar, Fatty liver disease, nonalcoholic K76.0 ; Psoriasis L40.9 and Hyperlipidemia E78.[address] [facility] [address] [id number] [place] 0309825[address] Mar, [facility] [address] [facility] [id number] 543349239 Feb, [facility] [address] [id number] [place] 8285[address]777 Feb, [facility] [address] [id number], [place] 019928784 Jan, [facility] [address] [id number], [place] 363029370 Dec, [facility] [address] [id number], [place] 603060901 Dec, [facility] [address] [facility] [id number], [place] [address] November, [facility] [address] [id number], [place] 748273659 November, [facility] [address] [id number], [place] 245995876 Oct, [facility] [address] [id number], [place] 974534439 Oct, Fatty liver disease, nonalcoholic K76.0 and Encounter for immunization Z23 [facility] [address] [facility] [id number], [place] [address] Oct, [facility] [address] [id number], [place] 909240733 Sep, Fatty liver disease, nonalcoholic K76.[address] [facility] [address] [id number], [place] 275732591 Sep, Fatty liver disease, nonalcoholic K76.0 ; High risk medication use Z79.899 ; Emotional lability R45.86 ; Hyperlipidemia E78.5 and Essential hypertension with goal blood pressure less than 130\/80 I10 [facility] [address] [facility] [id number], [place] [address] Sep, [facility] [address] [id number], [place] 440785966 Aug, Mixed hyperlipidemia E78.2 and Heartburn R12 [facility] [address] [id number], [place] 667427596 Aug, High risk medication use Z79.899 ; Emotional lability R45.86 ; Pulmonary emphysema, unspecified emphysema type J43.9 and Heartburn R12 [facility] [address] [id number], [place] 139717819 Jul, [facility] [address] [id number], [place] 735288054 Jul, [facility] [address] [id number], [place] 385030436 Jun, [facility] [address] [id number], [place] 777671202 May, Right upper quadrant abdominal pain R10.11 and Fatty liver K76.0 [facility] [address] [id number], [place] 124279606 Apr, Elevated AFP R77.2 ; Fatty liver K76.0 ; Unspecified cirrhosis of liver K74.60 ; High risk medication use Z79.899 ; Anhedonia R45.84 and Psoriasis L40.9 [facility] [address] [id number], [place] 271339684 Apr, [facility] [address] [id number], [place] 320060628 Apr, Elevated liver enzymes R74.8 [facility] [address] [id number], [place] 829681285 Apr, Abdominal pain, left lower quadrant R10.32 ; Mixed hyperlipidemia E78.2 and Hyperlipidemia 272.[address] [facility] [address] [id number], [place] 805208211 09 Apr, 2015 Encounter for routine gynecological examination Z01.419 and Breast cancer screening Z12.[address] [facility] [address] [id number], [place] 462340282 Apr, Abdominal pain, left lower quadrant R10.32 ; Mixed hyperlipidemia E78.2 and Lumbago M54.5 [facility] [address] [address] [id number], [place] 928531433 Mar, Psoriasis 696.1 ; Hyperlipidemia 272.4 and Chronic pain 338.29 [facility] [address] [id number], [place] 244236728 Mar, [facility] [address] [id number], [place] 305403126 Mar, [facility] [address] [id number], [place] 932059611 Mar, Rash and nonspecific skin eruption 782.1 [facility] [address] [id number], [place] 547581803 Feb, Dermatitis 692.9 and Thoracic or lumbosacral neuritis or radiculitis, unspecified 724.4 [facility] [address] [id number], [place] 292264424 Feb, Dermatitis 692.9 and Follow-up examination V67.9 [facility] [address] [id number], [place] 710042024 Jan, [facility] [address] [id number], [place] 610604689 Jan, Allergic dermatitis 692.9 [facility] [address] [id number], [place] 978188006 Jan, Rash and nonspecific skin eruption 782.1 [facility] [address] [id number], [place] 002340551 Jan, [facility] [address] [id number], [place] 044080862 Jan, Dermatitis 692.9 and Environmental allergies V15.[address] [facility] [address] [id number], [place] 166295573 Dec, [facility] [address] [id number], [place] 870848399 Dec, [facility] [address] [id number], [place] 581153757 Dec, [facility] [address] [id number], [place] 010833920 November, [facility] [address] [id number], [place] 954812045 November, Muscle spasm 728.85 [facility] [place] [facility] [address]00565100[place], [place] [address] Oct, [facility] [place] [facility] [address]00565100[place], [place] [address] Oct, [facility] [place] [facility] [address]00565100[place], [place] [address] Sep, [facility] [place] [facility] [address]00565100[place], [place] [address] Sep, [facility] [place] [facility] [address]00565100[place], [place] [address] Sep, [facility] [place] [facility] [address] [id number], [place] [address] Sep, [facility] [place] [facility] [address]00565100[place], [place] [address] Sep, [facility] [place] [facility] [address] [id number], [place] [address] 19 Sep, 2014 [facility] [place] [facility] [address]00565100[place], [place] [address] 16 Sep, 2014 [facility] [place] [facility] [address] [place] [address] 16 Sep, 2014 [facility] [address] [id number] [place] [address] Aug, [facility] [place] [facility] [address] [id number] [place] [address] Aug, [facility] [address] [id number] [place] [address] Jul, [facility] [address] [id number] [place] [address] Jul, [facility] [address] [id number] [place] [address] Jul, [facility] [address] [id number] [place] [address] Jul, [facility] [address] [id number] [place] [address] Jul, [facility] [address] [id number] [place] [address] Jul, [facility] [address] [id number] [place] [address] Jun, [facility] [address] [id number] [place] [address] Jun, [facility] [place] [facility] [address] [id number] [place] [address] Jun, [facility] [place] [facility] [address] [id number] [place] [address] Jun, [facility] [place] [facility] [address] [id number] [place] [address] Jun, [facility] [place] [facility] [address] [id number] [place] [address] Jun, [facility] [place] [facility] [address] [id number] [place] [address] Jun, [facility] [place] [facility] [address] [id number] [place] [address] Jun, [facility] [place] [facility] [address] [id number] [place] [address] May, [facility] [place] [facility] [address] [id number] [place] [address] May, [facility] [place] [facility] [address] [id number] [place] [address] May, [facility] [place] [facility] [address] [id number] [place] [address] May, [facility] [place] [facility] [address] [id number] [place] [address] May, [facility] [place] [facility] [address] [id number] [place] [address] Apr, [facility] [place] [facility] [address] [id number] [place] [address] Apr, [facility] [place] [facility] [address] [id number] [place] [address] Apr, [facility] [place] [facility] [address] [id number] [place] [address] Apr, [facility] [place] [facility] [address] [id number] [place] [address] Apr, [facility] [place] [facility] [address] [id number], [place] [address] Apr, [facility] [place] [facility] [address] [id number] [place] [address] Apr, [facility] [place] [facility] [address] [id number] [place] [address] Apr, [facility] [place] [facility] [address] [id number] [place] [address] Apr, [facility] [place] [facility] [address] [id number] [place] [address] 20 Apr, 2013 [facility] [place] [facility] [address] [id number] [place] [address] 17 Apr, 2013 [facility] [place] [facility] [address] [id number] [place] [address] 17 Apr, 2013 [facility] [place] [facility] [address] [id number] [place] [address] 16 Apr, 2013 [facility] [place] [facility] [address] [id number] [place] [address] 16 Apr, 2013 [facility] [place] [facility] [address] [id number] [place] [address] 15 Apr, 2013 [facility] [place] [facility] [address] [id number] [place] [address] 15 Apr, 2013 [facility] [place] [facility] [address] [id number] [place] [address] 14 Apr, 2013 [facility] [place] [facility] [address] [id number] [place] [address] 14 Apr, 2013 [facility] [place] [facility] [address] [id number] [place] [address] 13 Apr, 2013 [facility] [place] [facility] [address] [id number] [place] [address] 13 Apr, 2013 [facility] [place] [facility] [address] [id number] [place] [address] 06 Apr, 2013 [facility] [place] [facility] [address] [id number], [place] [address] 06 Apr, 2013 [facility] [place] [facility] [address] [id number] [place] [address] 05 Apr, 2013 [facility] [place] [facility] [address] [id number], [place] [address] 05 Apr, 2013 [facility] [place] [facility] [address] [id number], [place] [address] Apr, 2013 [facility] [place] [facility] [address] [id number] [place] [address] Apr, [facility] [place] [facility] [address] [id number] [place] [address] Mar, [facility] [place] [facility] [address] [id number] [place] [address] Mar, [facility] [place] [facility] [address] [id number] [place] [address] Feb, [facility] [place] [facility] [address] [id number] [place] [address] Feb, [facility] [place] [facility] [address] [id number] [place] [address] Feb, [facility] [place] [facility] [address] [id number] [place] [address] Feb, [facility] [place] [facility] [address] [id number] [place] [address] Jan, [facility] [place] [facility] [address] [id number] [place] [address] Jan, [facility] [place] [facility] [address] [id number] [place] [address] Jan, [facility] [place] [facility] [address] [id number] [place] [address] Jan, [facility] [place] [facility] [address] [id number] [place] [address] Jan, [facility] [place] [facility] [address] [id number] [place] [address] Jan, [facility] [place] [facility] [address] [id number] [place] [address] Jan, [facility] [place] [facility] [address] [id number] [place] [address] Jan, [facility] [place] [facility] [address] [id number] [place] [address] Jan, [facility] [place] [facility] [address] [id number] [place] [address] Jan, [facility] [place] [facility] [address] [id number] [place] [address] Jan, [facility] [place] [facility] [address] [id number] [place] [address] Dec, [facility] [place] [facility] [address] [id number] [place] [address] Dec, [facility] [place] [facility] [address] [id number] [place] [address] Dec, [facility] [place] [facility] [address] [id number] [place] [address] Dec, [facility] [place] [facility] [address] [id number] [place] [address] November, [facility] [place] [facility] [address] [id number] [place] [address] November, [facility] [place] [facility] [address] [id number] [place] [address] November, [facility] [place] [facility] [address] [id number] [place] [address] November, [facility] [place] [facility] [address] [id number] [place] [address] November, [facility] [place] [facility] [address] [id number] [place] [address] November, [facility] [place] [facility] [address] [id number] [place] [address] November, [facility] [place] [facility] [address] [id number] [place] [address] November, [facility] [place] [facility] [address] [id number] [place] [address] November, [facility] [place] [facility] [address] [id number] [place] [address] November, [facility] [place] [facility] [address] [id number] [place] [address] November, [facility] [place] [facility] [address] [id number] [place] [address] Oct, [facility] [place] [facility] [address] [id number] [place] [address] 29 Oct, 2013 [facility] [place] [facility] [address] [id number] [place] [address] Oct, [facility] [place] [facility] [address] [id number] [place] [address] Oct, [facility] [place] [facility] [address] [id number] [place] [address] Oct, [facility] [place] [facility] [address] [id number] [place] [address] Oct, [facility] [place] [facility] [address] [id number] [place] [address] 28 Sep, 2013 [facility] [place] [facility] [address] [id number] [place] [address] Sep, [facility] [place] [facility] [address] [id number] [place] [address] Sep, [facility] [place] [facility] [address] [id number] [place] [address] Sep, [facility] [place] [facility] [address] [id number] [place] [address] Sep, [facility] [place] [facility] [address] [id number] [place] [address] 18 Sep, 2013 [facility] [place] [facility] [address] [id number] [place] [address] 18 Sep, 2013 [facility] [place] [facility] [address] [id number] [place] [address] Sep, [facility] [place] [facility] [address] [id number] [place] [address] Sep, [facility] [place] [facility] [address] [id number] [place] [address] Sep, [facility] [place] [facility] [address] [id number] [place] [address] Sep, [facility] [place] [facility] [address] [id number] [place] [address] Aug, [facility] [place] [facility] [address] [id number] [place] [address] Aug, [facility] [place] [facility] [address] [id number] [place] [address] Aug, [facility] [place] [facility] [address] [id number] [place] [address] Aug, [facility] [place] [facility] [address] [id number] [place] [address] Jul, [facility] [place] [facility] [address] [id number] [place] [address] Jul, [facility] [place] [facility] [address] [id number] [place] [address] Jul, [facility] [place] [facility] [address] [id number] [place] [address] Jul, [facility] [place] [facility] [address] [id number] [place] [address] Jul, [facility] [place] [facility] [address] [id number] [place] [address] Jul, [facility] [place] [facility] [address] [id number] [place] [address] Jul, [facility] [place] [facility] [address] [id number] [place] [address] Jul, [facility] [place] [facility] [address] [id number] [place] [address] Jul, [facility] [address] [id number] [place] [address] Jul, [facility] [address] [id number] [place] [address] Jul, [facility] [address] [id number] [place] [address] Jul, [facility] [address] [id number] [place] [address] Jul, [facility] [address] [id number] [place] [address] Jun, [facility] [address] [id number] [place] [address] Jun, [facility] [address] [id number] [place] [address] Jun, [facility] [address] [id number] [place] [address] Jun, [facility] [address] [id number] [place] [address] Jun, [facility] [address] [id number] [place] [address] Jun, [facility] [address] [id number] [place] [address] Jun, [facility] [place] [facility] [address] [id number] [place] [address] Jun, [facility] [place] [facility] [address] [id number] [place] [address] Jun, [facility] [place] [facility] [address] [id number] [place] [address] Jun, [facility] [place] [facility] [address] [id number] [place] [address] Jun, [facility] [place] [facility] [address] [id number] [place] [address] Jun, [facility] [address] [id number] [place] [address] Jun, [facility] [place] [facility] [address] [facility] [id number] [place] [address] Jun, [facility] [address] [id number] [place] [address] Jun, [facility] [address] [facility] [id number] [place] [address] Jun, [facility] [address] [id number] [place] [address] Jun, [facility] [address] [facility] [id number] [place] [address] Jun, [facility] [address] [id number] [place] [address] Jun, [facility] [address] [facility] [id number] [place] [address] Jun, [facility] [address] [facility] [id number] [place] [address] Jun, [facility] [address] [facility] [id number], [place] [address] Jun, [facility] [address] [facility] [id number], [place] [address] Jun, [facility] [address] [facility] [id number], [place] [address] May, [facility] [place] [facility] [address] [facility] [id number], [place] [address] May, [facility] [address] [facility] [id number], [place] [address] Apr, [facility] [place] [address] [facility] [id number] [id number] Mar, [facility] [address] [facility] [id number], [place] [address] Feb, [facility] [address] [id number], [place] [address] Feb, [facility] [address] [id number], [place] [address] Jan, [facility] [address] [id number], [place] [address] Jan, [facility] [address] [id number], [place] [address] November, [facility] [id number], [place] [address] November, [facility] [address] [id number], [place] [address] Oct, [facility] [address] [id number], [place] [address] Oct, [facility] [address] [id number] [id number] November, [facility] [address] [id number], [place] [address] May, [facility] [address] [id number], [place] [address] Feb, IMMUNIZATIONS No Known Immunizations SOCIAL HISTORY Never Assessed REASON FOR VISIT EMR-[facility] PLAN OF CARE VITAL SIGNS MEDICATIONS Unknown [...] anxiety, depression Medical History CT abdomen at [facility] 09-14-16 shows a ventral hernia and [...]
--- OUTSIDE RECORDS SUMMARY | 2019-02-08 10:38 | XMS REPORT ---
Author Author JORGE WILDA [facility] Address [address] [place] [address] Care Team Providers Care Registered Nurse Step Down Name Role Phone WILDA PATEL Unavailable PROBLEMS Type Condition ICD9-CM Code VWP46-KE Code Onset Dates Condition Status SNOMED Code Problem Emotional lability R45.86 Active 92170534 Problem Heartburn R12 Active 95253595 Problem High risk medication use Z79.899 Active 140695972 Problem Colon cancer screening Z12.11 Active 233198639 Problem Pulmonary emphysema, unspecified emphysema type J43.9 Active 73271266 Problem Mixed hyperlipidemia E78.2 Active 262321921 Problem Fatty liver disease, nonalcoholic K76.0 Active 201225200 Problem Colonoscopy refused Z53.20 Active 928010284 Problem Lumbago with sciatica, left side M54.42 Active 024978585 Problem Other chronic pain G89.29 Active 76688811 Problem Serum calcium elevated E83.52 Active 46767950 Problem Urinary frequency R35.0 Active 220423357 Problem Psoriasis L40.9 Active 5913105 Problem Hyperlipidemia E78.5 Active 93677634 Problem Essential hypertension with goal blood pressure less than 130\/80 I10 Active 73961188 Problem Dental caries K02.9 Active 04763769 Problem Lumbago with sciatica, right side M54.41 Active 518923162148017 Problem Substance abuse F19.10 Active 97116658 Problem Hematuria, unspecified type R31.9 Active 54700040 Problem Metabolic syndrome X E88.81 Active 874096892 Problem Elevated serum GGT level R74.8 Active 120234144 Problem Psoriasis vulgaris L40.0 Active 117802774 Problem Dysthymia F34.1 Active 53099911 Problem Breast cancer screening Z12.39 Active 092891191 Problem Weight loss R63.4 Active 344712003 Problem 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 Active 391227332 Problem Gynecologic exam normal Z01.419 Active 004193804 ALLERGIES No Information ENCOUNTERS Encounter Location Date Diagnosis [facility] [address] [address] [id number][place] [id number] Apr, [facility] [address] [id number], [place] 861328[address] Feb, [facility] [address] [address] [id number][place] 8957860[address] November, Serum calcium elevated E83.52 and Elevated serum GGT level R74.[address] [facility] [address] [id number], [place] 612916556 November, Fatty liver disease, nonalcoholic K76.[address] [facility] [address] [id number][place] 920660218 November, High risk medication use Z79.899 ; Hematuria, unspecified type R31.9 ; Dental caries K02.9 ; Urinary frequency R35.0 and Substance abuse F19.[address] [facility] [address] [id number][place] [id number] Sep, [facility] [address] [address] [id number][place] 311715[address] Aug, [facility] [address] [id number][place] [id number] Aug, [facility] [address] [id number], [place] 555329479 Jul, [facility] [address] [id number], [place] 050627[address] Jun, [facility] [address] [address] [id number][place] 809495015 Jun, Hematuria, unspecified type R31.[address] [facility] [address] [id number], [place] 8514685[address] May, Lumbago with sciatica, left side M54.42 and Hematuria, unspecified type R31.[address] [facility] [address] [id number], [place] [address]230[address] May, Hematuria, unspecified type R31.[address] [facility] [address] [id number][place] 460390002 Apr, High risk medication use Z79.899 ; Lumbago with sciatica, left side M54.42 ; Lumbago with sciatica, right side M54.41 ; Other chronic pain G89.29 ; Emotional lability R45.86 and Colonoscopy refused Z53.[address] [facility] [address] [id number][place] 319[address]7680 Feb, [facility] [address] [id number][place] 112325[address] Feb, [facility] [place] [address] [facility] [id number], [place] [address] Jan, [facility] [address] [id number][place] 634127350 Jan, Psoriasis vulgaris L40.[address] [facility] [address] [id number][place] 700018569 Jan, High risk medication use Z79.[address] [facility] [address] [id number], [place] 146061230 Dec, Psoriasis vulgaris L40.[address] [facility] [address] [id number], [place] 131418733 Oct, Mixed hyperlipidemia E78.2 and High risk medication use Z79.[address] [facility] [address] [id number][place] 085960881 Oct, [facility] [address] [id number], [place] 717665151 Oct, [facility] [address] [address] [id number], [place] 716493618 Oct, Hyperlipidemia E78.5 and Weight loss R63.[address] [facility] [address] [id number], [place] 342655485 Oct, Gynecologic exam normal Z01.419 ; Breast cancer screening Z12.39 ; Weight loss R63.4 and Colon cancer screening Z12.[address] [facility] [address] [id number], [place] 560181800 Jul, [facility] [address] [id number], [place] 491852618 Jul, High risk medication use Z79.[address] [facility] [address] [id number], [place] 990966653 Jul, Metabolic syndrome X E88.81 ; Elevated serum GGT level R74.8 ; Dysthymia F34.1 and 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 [facility] [address] [id number], [place] 250525933 Jun, [facility] [address] [id number], [place] 940953077 May, [facility] [address] [id number], [place] 599575128 May, [facility] [address] [address] [id number], [place] 118472610 May, High risk medication use Z79.[address] [facility] [address] [id number], [place] 9612878[address] May, [facility] [address] [id number], [place] 608449324 May, Psoriasis vulgaris L40.0 and Other fpc (current) drug therapy Z79.[address] [facility] [address] [id number], [place] 501190858 Mar, Hyperlipidemia E78.[address] [facility] [address] [id number], [place] 829555878 Mar, [facility] [address] [id number], [place] 957268747 Mar, [facility] [address] [address] [id number] [place] [address] Mar, Fatty liver disease, nonalcoholic K76.0 and Hyperlipidemia E78.[address] [facility] [address] [id number] [place] 6708799[address] Mar, [facility] [address] [address] [id number] [place] 259277705 Mar, Fatty liver disease, nonalcoholic K76.0 ; Psoriasis L40.9 and Hyperlipidemia E78.[address] [facility] [address] [id number] [place] 786099349 Mar, [facility] [address] [id number], [place] [id number] Feb, [facility] [address] [address] [id number], [place] 179425684 Feb, [facility] [address] [address] [id number], [place] 956149221 Jan, [facility] [address] [address] [id number], [place] 185341212 Dec, [facility] [address] [address] [id number], [place] 421961511 Dec, [facility] [place] [address] [facility] [id number], [place] [address] November, [facility] [address] [id number], [place] 129506513 November, [facility] [address] [address] [id number], [place] 393249979 Oct, [facility] [address] [address] [id number], [place] 558344079 Oct, Fatty liver disease, nonalcoholic K76.0 and Encounter for immunization Z23 [facility] [place] [address] [facility] [id number], [place] [address] Oct, [facility] [address] [address] [id number], [place] 432598554 Sep, Fatty liver disease, nonalcoholic K76.0 [facility] [address] [id number], [place] 792349925 Sep, Fatty liver disease, nonalcoholic K76.0 ; High risk medication use Z79.899 ; Emotional lability R45.86 ; Hyperlipidemia E78.5 and Essential hypertension with goal blood pressure less than 130\/[address] [place] [address] [facility] [id number], [place] [address] Sep, [facility] [address] [id number], [place] 793071504 Aug, Mixed hyperlipidemia E78.2 and Heartburn R12 [facility] [address] [id number], [place] 970596827 Aug, High risk medication use Z79.899 ; Emotional lability R45.86 ; Pulmonary emphysema, unspecified emphysema type J43.9 and Heartburn R12 [facility] [address] [id number], [place] [id number] Jul, [facility] [address] [id number], [place] 970574238 Jul, [facility] [address] [id number], [place] 989677493 Jun, [facility] [address] [id number], [place] 126608050 May, Right upper quadrant abdominal pain R10.11 and Fatty liver K76.0 [facility] [address] [id number], [place] 025693324 Apr, Elevated AFP R77.2 ; Fatty liver K76.0 ; Unspecified cirrhosis of liver K74.60 ; High risk medication use Z79.899 ; Anhedonia R45.84 and Psoriasis L40.9 [facility] [address] [id number], [place] 181927360 Apr, [facility] [address] [address] [id number], [place] 206010254 Apr, Elevated liver enzymes R74.8 [facility] [address] [id number], [place] [id number] Apr, Abdominal pain, left lower quadrant R10.32 ; Mixed hyperlipidemia E78.2 and Hyperlipidemia 272.4 [facility] [address] [id number], [place] 377400549 09 Apr, 2015 Encounter for routine gynecological examination Z01.419 and Breast cancer screening Z12.39 [facility] [address] [id number], [place] 722063329 Apr, Abdominal pain, left lower quadrant R10.32 ; Mixed hyperlipidemia E78.2 and Lumbago M54.5 [facility] [address] [id number], [place] 934503933 Mar, Psoriasis 696.1 ; Hyperlipidemia 272.4 and Chronic pain 338.29 [facility] [address] [place] [address] AVE [id number], [place] 013816765 Mar, [facility] [address] [place] [address] AVE [id number], [place] 377992853 Mar, [facility] [address] [place] [address] AVE [id number], [place] [id number] Mar, Rash and nonspecific skin eruption 782.1 [facility] JAIR Sarmiento[address] [place] [address] AVE [id number], [place] 667692672 Feb, Dermatitis 692.9 and Thoracic or lumbosacral neuritis or radiculitis, unspecified 724.4 [facility] [address] [id number], [place] 886972857 Feb, Dermatitis 692.9 and Follow-up examination V67.9 [facility] [address] [id number], [place] 125677749 Jan, [facility] [address] [id number], [place] 742807654 Jan, Allergic dermatitis 692.[address] [facility] [address] [id number], [place] 988383744 Jan, Rash and nonspecific skin eruption 782.[address] [facility] [address] [id number] [place] 576855390 Jan, [facility] [address] [id number], [place] 756221490 Jan, Dermatitis 692.9 and Environmental allergies V15.[address] [facility] [address] [id number], [place] 155648837 Dec, [facility] [address] [id number], [place] 479656943 Dec, [facility] [address] [id number], [place] [id number] Dec, [facility] [address] [id number], [place] 402851638 November, [facility] [address] [id number], [place] 252310510 November, Muscle spasm 728.85 [facility] [address]00565[address], [place] [address] Oct, [facility] [address]00565100[place], [place] [address] Oct, [facility] [address]00565100[place], [place] [address] Sep, [facility] [address]00565100[place], [place] [address] Sep, [facility] [id number] [place] [address] Sep, [facility] [address]00565100[place], [place] [address] Sep, [facility] [id number] [place] [address] Sep, [facility] [place] [facility] [address] [id number] [place] [address] 19 Sep, 2014 [facility] [place] [facility] [address] [id number] [place] [address] 16 Sep, 2014 [facility] [place] [facility] [address] [id number] [place] [address] 16 Sep, 2014 [facility] [place] [facility] [address] [id number] [place] [address] Aug, [facility] [place] [facility] [address] [id number] [place] [address] Aug, [facility] [place] [facility] [address] [id number] [place] [address] 15 Jul, 2014 [facility] [place] [facility] [address] [id number] [place] [address] Jul, [facility] [place] [facility] [address] [id number] [place] [address] Jul, [facility] [place] [facility] [address] [id number] [place] [address] Jul, [facility] [place] [facility] [address] [id number] [place] [address] Jul, [facility] [place] [facility] [address] [id number], [place] [address] Jul, [facility] [place] [facility] [address] [id number], [place] [address] Jun, [facility] [place] [facility] [address] [id number] [place] [address] 18 Jun, 2014 [facility] [place] [facility] [address] [id number] [place] [address] 15 Jun, 2014 [facility] [place] [facility] [address] [id number] [place] [address] 15 Jun, 2014 [facility] [place] [facility] [address] [id number] [place] [address] Jun, [facility] [place] [facility] [address] [id number] [place] [address] Jun, [facility] [place] [facility] [address] [id number] [place] [address] Jun, [facility] [place] [facility] [address] [id number] [place] [address] Jun, [facility] [place] [facility] [address] [id number] [place] [address] May, [facility] [place] [facility] [address] [id number] [place] [address] May, [facility] [place] [facility] [address] [id number] [place] [address] May, [facility] [place] [facility] [address] [id number] [place] [address] May, [facility] [place] [facility] [address] [id number] [place] [address] May, [facility] [place] [facility] [address] [id number] [place] [address] Apr, [facility] [place] [facility] [address] [id number] [place] [address] Apr, [facility] [place] [facility] [address] [id number] [place] [address] Apr, [facility] [place] [facility] [address] [id number] [place] [address] Apr, [facility] [place] [facility] [address] [id number] [place] [address] Apr, [facility] [place] [facility] [address] [id number] [place] [address] Apr, [facility] [place] [facility] [address] [id number], [place] [address] Apr, [facility] [place] [facility] [address] [id number] [place] [address] 21 Apr, 2013 [facility] [place] [facility] [address] [id number] [place] [address] 20 Apr, 2013 [facility] [place] [facility] [address] [id number] [place] [address] 20 Apr, 2013 [facility] [place] [facility] [address] [id number] [place] [address] 17 Apr, 2014 [facility] [place] [facility] [address] [id number] [place] [address] 17 Apr, 2013 [facility] [place] [facility] [address] [id number] [place] [address] 16 Apr, 2014 [facility] [place] [facility] [address] [id number] [place] [address] 16 Apr, 2014 [facility] [place] [facility] [address] [id number] [place] [address] 15 Apr, 2014 [facility] [place] [facility] [address] [id number] [place] [address] 15 Apr, 2014 [facility] [place] [facility] [address] [id number] [place] [address] 14 Apr, 2014 [facility] [place] [facility] [address] [id number] [place] [address] 14 Apr, 2014 [facility] [place] [facility] [address] [id number] [place] [address] 13 Apr, 2014 [facility] [place] [facility] [address] [id number] [place] [address] 13 Apr, 2014 [facility] [place] [facility] [address] [id number] [place] [address] 06 Apr, 2014 [facility] [place] [facility] [address] [id number] [place] [address] 06 Apr, 2014 [facility] [place] [facility] [address] [id number] [place] [address] Apr, [facility] [place] [facility] [address] [id number] [place] [address] Apr, [facility] [place] [facility] [address] [id number] [place] [address] Apr, [facility] [place] [facility] [address] [id number] [place] [address] Apr, [facility] [place] [facility] [address] [id number] [place] [address] Mar, [facility] [place] [facility] [address] [id number] [place] [address] Mar, [facility] [place] [facility] [address] [id number] [place] [address] Feb, [facility] [place] [facility] [address] [id number] [place] [address] Feb, [facility] [place] [facility] [address] [id number] [place] [address] Feb, [facility] [place] [facility] [address] [id number] [place] [address] Feb, [facility] [place] [facility] [address] [id number] [place] [address] Jan, [facility] [place] [facility] [address] [id number] [place] [address] Jan, [facility] [place] [facility] [address] [id number] [place] [address] Jan, [facility] [place] [facility] [address] [id number] [place] [address] Jan, [facility] [place] [facility] [address] [id number] [place] [address] Jan, [facility] [place] [facility] [address] [id number] [place] [address] Jan, [facility] [place] [facility] [address] [id number] [place] [address] Jan, [facility] [address] [id number] [place] [address] Jan, [facility] [place] [facility] [address] [id number] [place] [address] Jan, [facility] [address] [id number] [place] [address] Jan, [facility] [place] [facility] [address] [id number] [place] [address] Jan, [facility] [address] [id number] [place] [address] Dec, [facility] [place] [facility] [address] [id number] [place] [address] Dec, [facility] [place] [facility] [address] [id number] [place] [address] Dec, [facility] [address] [id number] [place] [address] Dec, [facility] [place] [facility] [address] [id number] [place] [address] November, [facility] [address] [id number] [place] [address] November, [facility] [place] [facility] [address] [id number] [place] [address] November, [facility] [place] [facility] [address] [id number] [place] [address] November, [facility] [place] [facility] [address] [id number] [place] [address] November, [facility] [place] [facility] [address] [id number] [place] [address] November, [facility] [place] [facility] [address] [id number] [place] [address] November, [facility] [address] [id number] [place] [address] November, [facility] [place] [facility] [address] [id number] [place] [address] November, [facility] [place] [facility] [address] [id number] [place] [address] November, [facility] [place] [facility] [address] [id number] [place] [address] November, [facility] [place] [facility] [address] [id number] [place] [address] Oct, [facility] [place] [facility] [address] [id number] [place] [address] Oct, [facility] [place] [facility] [address] [id number] [place] [address] Oct, [facility] [place] [facility] [address] [id number] [place] [address] Oct, [facility] [place] [facility] [address] [id number] [place] [address] Oct, [facility] [place] [facility] [address] [id number] [place] [address] Oct, [facility] [place] [facility] [address] [id number] [place] [address] Sep, [facility] [place] [facility] [address] [id number] [place] [address] Sep, [facility] [place] [facility] [address] [id number] [place] [address] Sep, [facility] [place] [facility] [address] [id number] [place] [address] Sep, [facility] [place] [facility] [address] [id number] [place] [address] Sep, [facility] [place] [facility] [address] [id number] [place] [address] Sep, [facility] [place] [facility] [address] [id number] [place] [address] Sep, [facility] [place] [facility] [address] [id number] [place] [address] Sep, [facility] [place] [facility] [address] [id number] [place] [address] Sep, [facility] [place] [facility] [address] [id number] [place] [address] Sep, [facility] [place] [facility] [address] [id number] [place] [address] Sep, [facility] [place] [facility] [address] [id number] [place] [address] Aug, [facility] [place] [facility] [address] [id number] [place] [address] Aug, [facility] [place] [facility] [address] [id number] [place] [address] Aug, [facility] [place] [facility] [address] [id number] [place] [address] Aug, [facility] [place] [facility] [address] [facility] [id number] [place] [address] Jul, [facility] [place] [facility] [address] [id number] [place] [address] Jul, [facility] [place] [facility] [address] [id number] [place] [address] Jul, [facility] [place] [facility] [address] [id number] [place] [address] Jul, [facility] [place] [facility] [address] [id number] [place] [address] Jul, [facility] [place] [facility] [address] [id number] [place] [address] Jul, [facility] [place] [facility] [address] [id number] [place] [address] Jul, [facility] [place] [facility] [address] [id number] [place] [address] Jul, [facility] [place] [facility] [address] [id number] [place] [address] Jul, [facility] [place] [facility] [address] [id number] [place] [address] Jul, [facility] [place] [facility] [address] [id number] [place] [address] Jul, [facility] [place] [facility] [address] [id number] [place] [address] Jul, [facility] [place] [facility] [address] [id number] [place] [address] Jul, [facility] [place] [facility] [address] [id number] [place] [address] Jun, [facility] [place] [facility] [address] [id number] [place] [address] Jun, [facility] [place] [facility] [address] [id number] [place] [address] Jun, [facility] [place] [facility] [address] [id number] [place] [address] Jun, [facility] [place] [facility] [address] [id number] [place] [address] Jun, [facility] [place] [facility] [address] [id number] [place] [address] Jun, [facility] [place] [facility] [address] [id number] [place] [address] Jun, [facility] [place] [facility] [address] [id number] [place] [address] 17 Jun, 2013 [facility] [place] [facility] [address] [id number], [place] [address] Jun, [facility] [address] [id number] [place] [address] Jun, [facility] [place] [facility] [address] [id number] [place] [address] Jun, [facility] [place] [facility] [address] [facility] [id number] [place] [address] Jun, [facility] [place] [facility] [address] [id number] [place] [address] Jun, [facility] [address] [id number] [place] [address] Jun, [facility] [address] [id number] [place] [address] Jun, [facility] [address] [id number] [place] [address] Jun, [facility] [place] [facility] [address] [id number] [place] [address] Jun, [facility] [place] [facility] [address] [id number] [place] [address] Jun, [facility] [place] [facility] [address] [id number] [place] [address] Jun, [facility] [place] [facility] [address] [address] [id number], [place] [address] Jun, [facility] [address] [id number], [place] [address] Jun, [facility] [address] [id number], [place] [address] Jun, [facility] [address] [id number], [place] [address] Jun, [facility] [address] [id number], [place] [address] May, [facility] [address] [id number], [place] [address] May, [facility] [address] [id number], [place] [address] Apr, [facility] [address] [id number] [id number] Mar, [facility] [address] [id number], [place] [address] Feb, [facility] [id number], [place] [address] Feb, [facility] [id number], [place] [address] Jan, [facility] [id number], [place] [address] Jan, [facility] [id number], [place] [address] November, [facility] [id number], [place] [address] November, [facility] [id number], [place] [address] Oct, [facility] [address] [id number], [place] [address] Oct, [facility] [address] [facility] [id number] [id number] November, [facility] [address] [id number], [place] [address] May, [facility] [address] [id number], [place] [address] Feb, IMMUNIZATIONS No Known Immunizations SOCIAL HISTORY Never Assessed REASON FOR VISIT med refill PLAN OF CARE VITAL SIGNS MEDICATIONS Medication Instructions Dosage Frequency Start Date End Date Duration Status Lisinopril 10 mg TAKE 1 TABLET BY MOUTH ONCE DAILY 30 days Active RESULTS No Results PROCEDURES No Known [...]
--- OUTSIDE RECORDS SUMMARY | 2019-02-08 10:38 | XMS REPORT ---
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 Name Role Phone WILDA PATEL Unavailable PROBLEMS Type Condition ICD9-CM Code EGU00-DD Code Onset Dates Condition Status SNOMED Code Problem Emotional lability R45.86 Active 29167501 Problem Heartburn R12 Active 51945874 Problem High risk medication use Z79.899 Active 158732902 Problem Colon cancer screening Z12.11 Active 707084512 Problem Pulmonary emphysema, unspecified emphysema type J43.9 Active 69173878 Problem Mixed hyperlipidemia E78.2 Active 962320452 Problem Fatty liver disease, nonalcoholic K76.0 Active 189924951 Problem Colonoscopy refused Z53.20 Active 358870623 Problem Lumbago with sciatica, left side M54.42 Active 973474012 Problem Other chronic pain G89.29 Active 33587195 Problem Serum calcium elevated E83.52 Active 50449141 Problem Urinary frequency R35.0 Active 388880810 Problem Psoriasis L40.9 Active 4620282 Problem Hyperlipidemia E78.5 Active 92289270 Problem Essential hypertension with goal blood pressure less than 130\/80 I10 Active 58614375 Problem Dental caries K02.9 Active 85858330 Problem Lumbago with sciatica, right side M54.41 Active 232256431296046 Problem Substance abuse F19.10 Active 98039450 Problem Hematuria, unspecified type R31.9 Active 82795960 Problem Metabolic syndrome X E88.81 Active 490143196 Problem Elevated serum GGT level R74.8 Active 297746444 Problem Psoriasis vulgaris L40.0 Active 265499718 Problem Dysthymia F34.1 Active 24999677 Problem Breast cancer screening Z12.39 Active 084057844 Problem Weight loss R63.4 Active 212483159 Problem 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 Active 665221822 Problem Gynecologic exam normal Z01.419 Active 841903375 ALLERGIES No Information ENCOUNTERS Encounter Location Date Diagnosis [facility] [address] [address] [id number][place] [id number] Feb, [facility] [address] [id number][place] [address] November, Serum calcium elevated E83.52 and Elevated serum GGT level R74.[address] [facility] [address] [id number][place] [id number] November, Fatty liver disease, nonalcoholic K76.[address] [facility] [address] [id number], [place] 67[address]295[address] November, High risk medication use Z79.899 ; Hematuria, unspecified type R31.9 ; Dental caries K02.9 ; Urinary frequency R35.0 and Substance abuse F19.10 [facility] [address] [id number][place] [address] Sep, [facility] [address] [id number], [place] [address] Aug, [facility] [address] [id number], [place] [address]10786[address] Aug, [facility] [address] [id number], [place] [address] Jul, [facility] [address] [id number][place] [address] Jun, [facility] [address] [id number], [place] [address] Jun, Hematuria, unspecified type R31.9 [facility] [address] [id number], [place] [id number] May, Lumbago with sciatica, left side M54.42 and Hematuria, unspecified type R31.9 [facility] [address] [id number], [place] [address] May, Hematuria, unspecified type R31.[address] [facility] [address] [id number], [place] [address] Apr, High risk medication use Z79.899 ; Lumbago with sciatica, left side M54.42 ; Lumbago with sciatica, right side M54.41 ; Other chronic pain G89.29 ; Emotional lability R45.86 and Colonoscopy refused Z53.[address] [facility] [address] [id number], [place] [id number] Feb, [facility] [address] [id number], [place] [address]4745389 Feb, [facility] [address] [facility] [id number], [place] [address] Jan, [facility] [address] [id number], [place] [address]804[address] Jan, Psoriasis vulgaris L40.[address] [facility] [address] [id number], [place] 375499600 Jan, High risk medication use Z79.899 [facility] [address] [id number], [place] [address] Dec, Psoriasis vulgaris L40.0 [facility] [address] [id number], [place] [address]13[address] Oct, Mixed hyperlipidemia E78.2 and High risk medication use Z79.[address] [facility] [address] [id number], [place] [address] Oct, [facility] [address] [address] [id number], [place] [address] Oct, [facility] [address] [address] [id number], [place] 915128778 Oct, Hyperlipidemia E78.5 and Weight loss R63.[address] [facility] [address] [id number], [place] 090087319 Oct, Gynecologic exam normal Z01.419 ; Breast cancer screening Z12.39 ; Weight loss R63.4 and Colon cancer screening Z12.[address] [facility] [address] [id number] [place] [id number] Jul, [facility] [address] [address] [id number], [place] [address]6485 Jul, High risk medication use Z79.[address] [facility] [address] [id number], [place] [address] Jul, Metabolic syndrome X E88.81 ; Elevated serum GGT level R74.8 ; Dysthymia F34.1 and 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 [facility] [address] [id number], [place] [id number] Jun, [facility] [address] [address] [id number], [place] 890236988 May, [facility] [address] [id number], [place] [address]750[address] May, [facility] [address] [address] [id number], [place] 153784777 May, High risk medication use Z79.[address] [facility] [address] [id number], [place] 225[address] May, [facility] [address] [address] [id number], [place] [address]10084836 May, Psoriasis vulgaris L40.0 and Other skilled nursing (current) drug therapy Z79.[address] [facility] [address] [id number], [place] 517741501 Mar, Hyperlipidemia E78.[address] [facility] [address] [id number], [place] [address]182[address] Mar, [facility] [address] [address] [id number], [place] 179365484 Mar, [facility] [address] [address] [id number], [place] 151329669 Mar, Fatty liver disease, nonalcoholic K76.0 and Hyperlipidemia E78.[address] [facility] [address] [id number] [place] [address] Mar, [facility] [address] [address] [id number] [place] [id number] Mar, Fatty liver disease, nonalcoholic K76.0 ; Psoriasis L40.9 and Hyperlipidemia E78.[address] [facility] [address] [id number] [place] [address]79[address] Mar, [facility] [address] [id number][place] [id number] Feb, [facility] [address] [id number], [place] 8330825[address] Feb, [facility] [address] [address] [id number], [place] 628483699 Jan, [facility] [address] [address] [id number], [place] 161507560 Dec, [facility] [address] [id number], [place] 520604883 Dec, [facility] [address] [facility] [id number], [place] [address] November, [facility] [address] [id number], [place] 550101250 November, [facility] [address] [address] [id number], [place] 455881608 Oct, [facility] [address] [id number], [place] 947396713 Oct, Fatty liver disease, nonalcoholic K76.0 and Encounter for immunization Z23 [facility] [address] [facility] [id number], [place] [address] Oct, [facility] [address] [address] [id number], [place] 147382835 Sep, Fatty liver disease, nonalcoholic K76.[address] [facility] [address] [id number], [place] 779348210 Sep, Fatty liver disease, nonalcoholic K76.0 ; High risk medication use Z79.899 ; Emotional lability R45.86 ; Hyperlipidemia E78.5 and Essential hypertension with goal blood pressure less than 130\/80 I10 [facility] [address] [facility] [id number] [place] [address] Sep, [facility] [address] [id number], [place] 462347336 Aug, Mixed hyperlipidemia E78.2 and Heartburn R12 [facility] [address] [id number], [place] [address]13742070 Aug, High risk medication use Z79.899 ; Emotional lability R45.86 ; Pulmonary emphysema, unspecified emphysema type J43.9 and Heartburn R12 [facility] [address] [id number], [place] [id number] Jul, [facility] [address] [id number], [place] 182106266 Jul, [facility] [address] [address] [id number], [place] 5826911[address] Jun, [facility] [address] [id number], [place] 082345731 May, Right upper quadrant abdominal pain R10.11 and Fatty liver K76.[address] [facility] [address] [id number], [place] 082780874 Apr, Elevated AFP R77.2 ; Fatty liver K76.0 ; Unspecified cirrhosis of liver K74.60 ; High risk medication use Z79.899 ; Anhedonia R45.84 and Psoriasis L40.9 [facility] [address] [address] [id number], [place] 643541489 Apr, [facility] [address] [id number], [place] 528231022 Apr, Elevated liver enzymes R74.8 [facility] [address] [address] [id number], [place] 973516586 Apr, Abdominal pain, left lower quadrant R10.32 ; Mixed hyperlipidemia E78.2 and Hyperlipidemia 272.4 [facility] [address] [id number], [place] [id number] 09 Apr, 2015 Encounter for routine gynecological examination Z01.419 and Breast cancer screening Z12.39 [facility] [address] [id number], [place] 078828366 Apr, Abdominal pain, left lower quadrant R10.32 ; Mixed hyperlipidemia E78.2 and Lumbago M54.5 [facility] [address] [id number], [place] 370381721 Mar, Psoriasis 696.1 ; Hyperlipidemia 272.4 and Chronic pain 338.29 [facility] [address] [place] [address] AVE [id number], [place] 181464898 Mar, [facility] [address] [id number], [place] 537837266 Mar, [facility] [address] [place] [address] AVE [id number], [place] 989180074 Mar, Rash and nonspecific skin eruption 782.1 [facility] [address] [place] [address] AVE [id number], [place] [id number] Feb, Dermatitis 692.9 and Thoracic or lumbosacral neuritis or radiculitis, unspecified 724.4 [facility] [address] [id number], [place] 082897783 Feb, Dermatitis 692.9 and Follow-up examination V67.9 [facility] [address] [id number], [place] 018959457 Jan, [facility] [address] [id number], [place] 111625019 Jan, Allergic dermatitis 692.9 [facility] [address] [id number], [place] 668065670 Jan, Rash and nonspecific skin eruption 782.[address] [facility] [address] [id number] [place] 937949528 Jan, [facility] [address] [id number], [place] 182946000 Jan, Dermatitis 692.9 and Environmental allergies V15.[address] [facility] [address] [id number], [place] [id number] Dec, [facility] [address] [id number], [place] 776993359 Dec, [facility] [address] [id number], [place] 436429027 Dec, [facility] [address] [id number], [place] 152199232 November, [facility] [address] [id number], [place] 695880868 November, Muscle spasm 728.85 [facility] [address]00565[address], [place] [address] Oct, [facility] [address] [id number], [place] [address] Oct, [facility] [address]00565100[place], [place] [address] Sep, [facility] [address] [id number], [place] [address] Sep, [facility] [address]00565100[place], [place] [address] Sep, [facility] [id number] [place] [address] Sep, [facility] [address] [id number], [place] [address] Sep, [facility] [id number] [place] [address] Sep, [facility] [place] [facility] [address] [id number] [place] [address] 16 Sep, 2014 [facility] [place] [facility] [address] [id number] [place] [address] 16 Sep, 2014 [facility] [place] [facility] [address] [id number] [place] [address] Aug, [facility] [place] [facility] [address] [id number] [place] [address] Aug, [facility] [place] [facility] [address] [id number] [place] [address] Jul, [facility] [place] [facility] [address] [id number] [place] [address] Jul, [facility] [place] [facility] [address] [id number] [place] [address] Jul, [facility] [place] [facility] [address] [id number] [place] [address] Jul, [facility] [place] [facility] [address] [id number] [place] [address] Jul, [facility] [place] [facility] [address] [id number] [place] [address] Jul, [facility] [place] [facility] [address] [id number] [place] [address] 18 Jun, 2014 [facility] [place] [facility] [address] [id number], [place] [address] Jun, [facility] [place] [facility] [address] [id number] [place] [address] 15 Jun, 2014 [facility] [place] [facility] [address] [id number] [place] [address] 15 Jun, 2014 [facility] [place] [facility] [address] [id number] [place] [address] 09 Jun, 2014 [facility] [place] [facility] [address] [id number] [place] [address] Jun, [facility] [place] [facility] [address] [id number] [place] [address] Jun, [facility] [place] [facility] [address] [id number] [place] [address] Jun, [facility] [place] [facility] [address] [id number] [place] [address] May, [facility] [place] [facility] [address] [id number] [place] [address] May, [facility] [place] [facility] [address] [id number] [place] [address] May, [facility] [place] [facility] [address] [id number] [place] [address] May, [facility] [place] [facility] [address] [id number] [place] [address] May, [facility] [place] [facility] [address] [id number] [place] [address] Apr, [facility] [place] [facility] [address] [id number] [place] [address] Apr, [facility] [place] [facility] [address] [facility] [id number] [place] [address] Apr, [facility] [place] [facility] [address] [id number] [place] [address] Apr, [facility] [place] [facility] [address] [id number] [place] [address] Apr, [facility] [place] [facility] [address] [id number] [place] [address] Apr, [facility] [place] [facility] [address] [id number] [place] [address] Apr, [facility] [place] [facility] [address] [id number] [place] [address] Apr, [facility] [place] [facility] [address] [id number] [place] [address] 20 Apr, 2014 [facility] [place] [facility] [address] [id number] [place] [address] 20 Apr, 2014 [facility] [place] [facility] [address] [id number] [place] [address] 17 Apr, 2014 [facility] [place] [facility] [address] [id number] [place] [address] 17 Apr, 2014 [facility] [place] [facility] [address] [id number] [place] [address] 16 Apr, 2014 [facility] [place] [facility] [address] [id number] [place] [address] 16 Apr, 2014 [facility] [place] [facility] [address] [id number] [place] [address] 15 Apr, 2014 [facility] [place] [facility] [address] [id number] [place] [address] 15 Apr, 2014 [facility] [place] [facility] [address] [id number] [place] [address] 14 Apr, 2014 [facility] [place] [facility] [address] [id number] [place] [address] 14 Apr, 2014 [facility] [place] [facility] [address] [id number] [place] [address] 13 Apr, 2014 [facility] [place] [facility] [address] [id number] [place] [address] 13 Apr, 2014 [facility] [place] [facility] [address] [id number] [place] [address] 06 Apr, 2014 [facility] [place] [facility] [address] [id number] [place] [address] 06 Apr, 2014 [facility] [place] [facility] [address] [id number] [place] [address] 05 Apr, 2014 [facility] [place] [facility] [address] [id number] [place] [address] Apr, [facility] [place] [facility] [address] [id number] [place] [address] Apr, [facility] [place] [facility] [address] [id number] [place] [address] Apr, [facility] [place] [facility] [address] [id number] [place] [address] Mar, [facility] [place] [facility] [address] [id number] [place] [address] Mar, [facility] [place] [facility] [address] [id number] [place] [address] Feb, [facility] [place] [facility] [address] [id number] [place] [address] Feb, [facility] [place] [facility] [address] [id number] [place] [address] Feb, [facility] [place] [facility] [address] [id number] [place] [address] Feb, [facility] [place] [facility] [address] [id number] [place] [address] Jan, [facility] [place] [facility] [address] [id number] [place] [address] Jan, [facility] [place] [facility] [address] [id number] [place] [address] Jan, [facility] [place] [facility] [address] [id number] [place] [address] Jan, [facility] [place] [facility] [address] [id number] [place] [address] Jan, [facility] [place] [facility] [address] [id number] [place] [address] Jan, [facility] [place] [facility] [address] [id number] [place] [address] Jan, [facility] [place] [facility] [address] [id number] [place] [address] Jan, [facility] [place] [facility] [address] [id number] [place] [address] Jan, [facility] [place] [facility] [address] [id number] [place] [address] Jan, [facility] [place] [facility] [address] [id number] [place] [address] Jan, [facility] [place] [facility] [address] [id number] [place] [address] Dec, [facility] [place] [facility] [address] [id number] [place] [address] Dec, [facility] [place] [facility] [address] [id number] [place] [address] Dec, [facility] [place] [facility] [address] [id number] [place] [address] Dec, [facility] [address] [id number] [place] [address] November, [facility] [place] [facility] [address] [id number] [place] [address] November, [facility] [address] [id number] [place] [address] November, [facility] [place] [facility] [address] [id number] [place] [address] November, [facility] [place] [facility] [address] [id number] [place] [address] November, [facility] [place] [facility] [address] [id number] [place] [address] November, [facility] [place] [facility] [address] [id number] [place] [address] November, [facility] [place] [facility] [address] [id number] [place] [address] November, [facility] [place] [facility] [address] [id number] [place] [address] November, [facility] [place] [facility] [address] [id number] [place] [address] November, [facility] [place] [facility] [address] [id number] [place] [address] November, [facility] [place] [facility] [address] [id number] [place] [address] Oct, [facility] [place] [facility] [address] [id number] [place] [address] Oct, [facility] [place] [facility] [address] [id number] [place] [address] Oct, [facility] [place] [facility] [address] [id number] [place] [address] Oct, [facility] [place] [facility] [address] [id number] [place] [address] Oct, [facility] [place] [facility] [address] [id number] [place] [address] Oct, [facility] [place] [facility] [address] [id number] [place] [address] Sep, [facility] [place] [facility] [address] [id number] [place] [address] Sep, [facility] [place] [facility] [address] [id number] [place] [address] Sep, [facility] [place] [facility] [address] [id number] [place] [address] Sep, [facility] [place] [facility] [address] [id number] [place] [address] Sep, [facility] [place] [facility] [address] [id number] [place] [address] 18 Sep, 2013 [facility] [place] [facility] [address] [id number], [place] [address] Sep, [facility] [place] [facility] [address] [id number] [place] [address] Sep, [facility] [place] [facility] [address] [id number] [place] [address] Sep, [facility] [place] [facility] [address] [id number] [place] [address] Sep, [facility] [place] [facility] [address] [id number] [place] [address] Sep, [facility] [place] [facility] [address] [id number] [place] [address] Aug, [facility] [place] [facility] [address] [id number] [place] [address] Aug, [facility] [place] [facility] [address] [id number] [place] [address] Aug, [facility] [place] [facility] [address] [id number] [place] [address] Aug, [facility] [place] [facility] [address] [id number] [place] [address] Jul, [facility] [place] [facility] [address] [facility] [id number] [place] [address] Jul, [facility] [place] [facility] [address] [id number] [place] [address] Jul, [facility] [place] [facility] [address] [id number] [place] [address] Jul, [facility] [place] [facility] [address] [id number] [place] [address] Jul, [facility] [place] [facility] [address] [id number] [place] [address] Jul, [facility] [place] [facility] [address] [id number] [place] [address] Jul, [facility] [place] [facility] [address] [id number] [place] [address] Jul, [facility] [address] [id number] [place] [address] Jul, [facility] [address] [id number] [place] [address] Jul, [facility] [address] [id number] [place] [address] Jul, [facility] [address] [id number] [place] [address] Jul, [facility] [address] [id number] [place] [address] Jul, [facility] [address] [id number] [place] [address] Jun, [facility] [address] [id number] [place] [address] Jun, [facility] [address] [id number] [place] [address] Jun, [facility] [address] [id number] [place] [address] Jun, [facility] [address] [id number] [place] [address] Jun, [facility] [address] [id number] [place] [address] Jun, [facility] [place] [facility] [address] [id number] [place] [address] Jun, [facility] [place] [facility] [address] [id number] [place] [address] Jun, [facility] [place] [facility] [address] [id number] [place] [address] Jun, [facility] [place] [facility] [address] [id number] [place] [address] Jun, [facility] [address] [id number] [place] [address] Jun, [facility] [place] [facility] [address] [id number] [place] [address] Jun, [facility] [place] [facility] [address] [id number] [place] [address] Jun, [facility] [place] [facility] [address] [id number] [place] [address] Jun, [facility] [place] [facility] [address] [id number] [place] [address] Jun, [facility] [place] [facility] [address] [id number] [place] [address] Jun, [facility] [place] [facility] [address] [id number] [place] [address] Jun, [facility] [place] [facility] [address] [id number] [place] [address] Jun, [facility] [place] [facility] [address] [id number] [place] [address] Jun, [facility] [place] [facility] [address] [id number] [place] [address] Jun, [facility] [place] [facility] [address] [address] [id number], [place] [address] Jun, [facility] [place] [facility] [address] [id number], [place] [address] Jun, [facility] [place] [facility] [address] [id number] [place] [address] Jun, [facility] [place] [facility] [address] [id number], [place] [address] May, [facility] [place] [facility] [address] [id number] [place] [address] May, [facility] [place] [facility] [address] [id number], [place] [address] Apr, [facility] [address] [id number] [id number] Mar, [facility] [address] [id number], [place] [address] Feb, [facility] [address] [id number], [place] [address] Feb, [facility] [id number], [place] [address] Jan, [facility] [id number], [place] [address] Jan, [facility] [id number], [place] [address] November, [facility] [id number], [place] [address] November, [facility] [address] [id number], [place] [address] Oct, [facility] [address] [id number], [place] [address] Oct, [facility] [address] [facility] [id number] [id number] November, [facility] [address] [id number], [place] [address] May, [facility] [address] [id number], [place] [address] Feb, IMMUNIZATIONS No Known Immunizations SOCIAL HISTORY [...] anxiety, depression Medical History CT abdomen at [facility] 3-1-17 shows a ventral hernia and fatty liver disease Medical History Pt no-showed colonoscopy Medical History no showed mammogram Surgical History tonsillectomy Surgical History appendectomy 03/2011 Surgical History hysterectomy, total with bilateral salpingo-oophorectomy (BSO) 03/2011 Surgical History large abdominal tumor/uterus removed 2010 Hospitalization History past surgeries
--- OUTSIDE RECORDS SUMMARY | 2019-02-08 10:39 | XMS REPORT ---
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 Name Role Phone WILDA PATEL Unavailable PROBLEMS Type Condition ICD9-CM Code BOK78-ZM Code Onset Dates Condition Status SNOMED Code Problem Emotional lability R45.86 Active 39706598 Problem Heartburn R12 Active 15183068 Problem High risk medication use Z79.899 Active 180100519 Problem Colon cancer screening Z12.11 Active 834503616 Problem Pulmonary emphysema, unspecified emphysema type J43.9 Active 71700268 Problem Mixed hyperlipidemia E78.2 Active 416760627 Problem Fatty liver disease, nonalcoholic K76.0 Active 970803176 Problem Colonoscopy refused Z53.20 Active 123547098 Problem Lumbago with sciatica, left side M54.42 Active 278491639 Problem Other chronic pain G89.29 Active 31410355 Problem Serum calcium elevated E83.52 Active 29704717 Problem Urinary frequency R35.0 Active 131267701 Problem Psoriasis L40.9 Active 6416566 Problem Hyperlipidemia E78.5 Active 02690016 Problem Essential hypertension with goal blood pressure less than 130\/80 I10 Active 93085707 Problem Dental caries K02.9 Active 23270482 Problem Lumbago with sciatica, right side M54.41 Active 300144676810248 Problem Substance abuse F19.10 Active 37355308 Problem Hematuria, unspecified type R31.9 Active 77580294 Problem Metabolic syndrome X E88.81 Active 170932801 Problem Elevated serum GGT level R74.8 Active 969373812 Problem Psoriasis vulgaris L40.0 Active 822912317 Problem Dysthymia F34.1 Active 79625254 Problem Breast cancer screening Z12.39 Active 080636195 Problem Weight loss R63.4 Active 012957680 Problem 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 Active 030753527 Problem Gynecologic exam normal Z01.419 Active 852983842 ALLERGIES No Information ENCOUNTERS Encounter Location Date Diagnosis [facility] [address] [id number][place] [id number] November, Serum calcium elevated E83.52 and Elevated serum GGT level R74.8 [facility] [address] [id number], [place] 212766798 November, Fatty liver disease, nonalcoholic K76.[address] [facility] [address] [id number][place] [address]27[address] November, High risk medication use Z79.899 ; Hematuria, unspecified type R31.9 ; Dental caries K02.9 ; Urinary frequency R35.0 and Substance abuse F19.10 [facility] [address] [id number], [place] [address] Sep, [facility] [address] [id number][place] [address]40[place]60[place] Aug, [facility] [address] [id number], [place] 065976859 Aug, [facility] [address] [id number], [place] [id number] Jul, [facility] [address] [id number], [place] [address]85[address] Jun, [facility] [address] [id number], [place] 546264678 Jun, Hematuria, unspecified type R31.9 [facility] [address] [id number], [place] 772950446 May, Lumbago with sciatica, left side M54.42 and Hematuria, unspecified type R31.9 [facility] [address] [id number], [place] 940094542 May, Hematuria, unspecified type R31.9 [facility] [address] [id number], [place] 054172468 Apr, High risk medication use Z79.899 ; Lumbago with sciatica, left side M54.42 ; Lumbago with sciatica, right side M54.41 ; Other chronic pain G89.29 ; Emotional lability R45.86 and Colonoscopy refused Z53.[address] [facility] [address] [id number], [place] 404750[address] Feb, [facility] [address] [id number], [place] [address]88 Feb, [facility] [address] [facility] [id number], [place] [address] Jan, [facility] [address] [id number], [place] [address]57[address]63 Jan, Psoriasis vulgaris L40.[address] [facility] [address] [id number], [place] 58[address]01512 Jan, High risk medication use Z79.[address] [facility] [address] [id number], [place] 712458006 Dec, Psoriasis vulgaris L40.0 [facility] [address] [id number], [place] 499413859 Oct, Mixed hyperlipidemia E78.2 and High risk medication use Z79.[address] [facility] [address] [id number], [place] 388284215 Oct, [facility] [address] [id number], [place] 649705948 Oct, [facility] [address] [id number], [place] 557610125 Oct, Hyperlipidemia E78.5 and Weight loss R63.[address] [facility] [address] [id number], [place] 045113660 Oct, Gynecologic exam normal Z01.419 ; Breast cancer screening Z12.39 ; Weight loss R63.4 and Colon cancer screening Z12.[address] [facility] [address] [id number], [place] 477550412 Jul, [facility] [address] [id number] [place] [address] Jul, High risk medication use Z79.[address] [facility] [address] [id number] [place] 894708133 Jul, Metabolic syndrome X E88.81 ; Elevated serum GGT level R74.8 ; Dysthymia F34.1 and 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 [facility] [address] [id number] [place] 46[address] Jun, [facility] [address] [id number] [place] 278[address]07[address] May, [facility] [address] [id number], [place] 389191226 May, [facility] [address] [id number], [place] 598977083 May, High risk medication use Z79.[address] [facility] [address] [id number], [place] 953477921 May, [facility] [address] [id number], [place] 218621376 May, Psoriasis vulgaris L40.0 and Other skilled nursing (current) drug therapy Z79.[address] [facility] [address] [id number], [place] 120350282 Mar, Hyperlipidemia E78.[address] [facility] [address] [id number] [place] [address] Mar, [facility] [address] [id number], [place] 371402903 Mar, [facility] [address] [id number], [place] 237135210 Mar, Fatty liver disease, nonalcoholic K76.0 and Hyperlipidemia E78.[address] [facility] [address] [id number], [place] 318751754 Mar, [facility] [address] [id number] [place] 598275752 Mar, Fatty liver disease, nonalcoholic K76.0 ; Psoriasis L40.9 and Hyperlipidemia E78.[address] [facility] [address] [id number], [place] 728628524 Mar, [facility] [address] [facility] [id number], [place] 940939910 Feb, [facility] [address] [id number], [place] 093420426 Feb, [facility] [address] [id number], [place] 255935115 Jan, [facility] [address] [id number], [place] 163204766 Dec, [facility] [address] [id number], [place] 687672708 Dec, [facility] [address] [facility] [id number], [place] [address] November, [facility] [address] [id number], [place] 225108813 November, [facility] [address] [id number], [place] 631033170 Oct, [facility] [address] [id number], [place] 051585302 Oct, Fatty liver disease, nonalcoholic K76.0 and Encounter for immunization Z23 [facility] [address] [facility] [id number], [place] [address] Oct, [facility] [address] [id number], [place] 024263115 Sep, Fatty liver disease, nonalcoholic K76.[address] [facility] [address] [id number], [place] 536719209 Sep, Fatty liver disease, nonalcoholic K76.0 ; High risk medication use Z79.899 ; Emotional lability R45.86 ; Hyperlipidemia E78.5 and Essential hypertension with goal blood pressure less than 130\/80 I10 [facility] [address] [facility] [id number] [place] [address] Sep, [facility] [address] [id number], [place] 604483164 Aug, Mixed hyperlipidemia E78.2 and Heartburn R12 [facility] [address] [id number], [place] 652348252 Aug, High risk medication use Z79.899 ; Emotional lability R45.86 ; Pulmonary emphysema, unspecified emphysema type J43.9 and Heartburn R12 [facility] [address] [id number], [place] 348015900 Jul, [facility] [address] [id number], [place] 556182263 Jul, [facility] [address] [id number], [place] 468703613 Jun, [facility] [address] [id number], [place] 810291267 May, Right upper quadrant abdominal pain R10.11 and Fatty liver K76.0 [facility] [address] [id number], [place] 251902964 Apr, Elevated AFP R77.2 ; Fatty liver K76.0 ; Unspecified cirrhosis of liver K74.60 ; High risk medication use Z79.899 ; Anhedonia R45.84 and Psoriasis L40.9 [facility] [address] [id number], [place] 993007381 Apr, [facility] [address] [id number], [place] 909311717 Apr, Elevated liver enzymes R74.8 [facility] [address] [id number], [place] 516250490 Apr, Abdominal pain, left lower quadrant R10.32 ; Mixed hyperlipidemia E78.2 and Hyperlipidemia 272.4 [facility] [address] [id number], [place] 172150084 09 Apr, 2015 Encounter for routine gynecological examination Z01.419 and Breast cancer screening Z12.[address] [facility] [address] [id number], [place] [id number] 06 Apr, 2015 Abdominal pain, left lower quadrant R10.32 ; Mixed hyperlipidemia E78.2 and Lumbago M54.5 [facility] [address] [id number], [place] 057124215 17 Mar, 2015 Psoriasis 696.1 ; Hyperlipidemia 272.4 and Chronic pain 338.29 [facility] [address] [id number], [place] 332853966 Mar, [facility] [address] [id number], [place] 490426371 Mar, [facility] [address] [id number], [place] 378276040 Mar, Rash and nonspecific skin eruption 782.1 [facility] [address] [id number], [place] 668267362 Feb, Dermatitis 692.9 and Thoracic or lumbosacral neuritis or radiculitis, unspecified 724.4 [facility] [address] [id number], [place] 703535316 Feb, Dermatitis 692.9 and Follow-up examination V67.9 [facility] [address] [id number], [place] 705014494 Jan, [facility] [address] [id number], [place] 199095049 Jan, Allergic dermatitis 692.9 [facility] [address] [id number], [place] 909397889 Jan, Rash and nonspecific skin eruption 782.1 [facility] [address] [id number], [place] 261755320 Jan, [facility] [address] [id number], [place] 107086899 Jan, Dermatitis 692.9 and Environmental allergies V15.[address] [facility] [address] [id number], [place] 811770019 Dec, [facility] [address] [id number], [place] 482710545 Dec, [facility] [address] [id number], [place] 502195073 Dec, [facility] [address] [id number], [place] 819716632 November, [facility] [address] [id number], [place] 299550464 November, Muscle spasm 728.85 [facility] [address] [id number], [place] [address] Oct, [facility] [address]00565[place], [place] [address] Oct, [facility] [address] [id number], [place] [address] Sep, [facility] [address]00565[address], [place] [address] Sep, [facility] [address] [id number], [place] [address] Sep, [facility] [address]00565[address], [place] [address] Sep, [facility] [id number] [place] [address] Sep, [facility] [address]00565100[place], [place] [address] Sep, [facility] [address] [id number], [place] [address] 16 Sep, 2014 [facility] [place] [facility] [address] [id number] [place] [address] 16 Sep, 2014 [facility] [place] [facility] [address] [id number] [place] [address] Aug, [facility] [place] [facility] [address] [id number] [place] [address] Aug, [facility] [place] [facility] [address] [id number] [place] [address] Jul, [facility] [place] [facility] [address] [id number] [place] [address] Jul, [facility] [place] [facility] [address] [id number] [place] [address] Jul, [facility] [place] [facility] [address] [id number] [place] [address] Jul, [facility] [place] [facility] [address] [id number] [place] [address] Jul, [facility] [place] [facility] [address] [id number] [place] [address] Jul, [facility] [place] [facility] [address] [id number] [place] [address] Jun, [facility] [place] [facility] [address] [id number] [place] [address] Jun, [facility] [place] [facility] [address] [id number] [place] [address] Jun, [facility] [place] [facility] [address] [id number] [place] [address] Jun, [facility] [place] [facility] [address] [id number] [place] [address] Jun, [facility] [place] [facility] [address] [id number] [place] [address] Jun, [facility] [place] [facility] [address] [id number] [place] [address] Jun, [facility] [place] [facility] [address] [id number] [place] [address] Jun, [facility] [place] [facility] [address] [id number] [place] [address] May, [facility] [place] [facility] [address] [id number] [place] [address] May, [facility] [place] [facility] [address] [id number] [place] [address] May, [facility] [place] [facility] [address] [id number] [place] [address] May, [facility] [place] [facility] [address] [id number] [place] [address] May, [facility] [place] [facility] [address] [id number] [place] [address] Apr, [facility] [place] [facility] [address] [id number] [place] [address] Apr, [facility] [place] [facility] [address] [id number] [place] [address] Apr, [facility] [place] [facility] [address] [id number] [place] [address] Apr, [facility] [place] [facility] [address] [id number] [place] [address] Apr, [facility] [place] [facility] [address] [id number] [place] [address] Apr, [facility] [place] [facility] [address] [id number] [place] [address] Apr, [facility] [place] [facility] [address] [id number] [place] [address] Apr, [facility] [place] [facility] [address] [id number] [place] [address] Apr, [facility] [place] [facility] [address] [id number] [place] [address] 20 Apr, 2013 [facility] [place] [facility] [address] [id number] [place] [address] 17 Apr, 2013 [facility] [place] [facility] [address] [id number] [place] [address] 17 Apr, 2013 [facility] [place] [facility] [address] [id number] [place] [address] 16 Apr, 2013 [facility] [place] [facility] [address] [id number] [place] [address] 16 Apr, 2013 [facility] [place] [facility] [address] [id number] [place] [address] 15 Apr, 2014 [facility] [place] [facility] [address] [id number] [place] [address] 15 Apr, 2014 [facility] [place] [facility] [address] [id number] [place] [address] 14 Apr, 2014 [facility] [place] [facility] [address] [id number] [place] [address] 14 Apr, 2014 [facility] [place] [facility] [address] [id number] [place] [address] 13 Apr, 2014 [facility] [place] [facility] [address] [id number] [place] [address] 13 Apr, 2014 [facility] [place] [facility] [address] [id number], [place] [address] 06 Apr, 2013 [facility] [place] [facility] [address] [id number] [place] [address] 06 Apr, 2014 [facility] [place] [facility] [address] [id number] [place] [address] 05 Apr, 2014 [facility] [place] [facility] [address] [id number] [place] [address] 05 Apr, 2013 [facility] [place] [facility] [address] [id number], [place] [address] Apr, [facility] [place] [facility] [address] [id number] [place] [address] Apr, [facility] [place] [facility] [address] [id number] [place] [address] Mar, [facility] [place] [facility] [address] [id number] [place] [address] Mar, [facility] [place] [facility] [address] [id number] [place] [address] Feb, [facility] [place] [facility] [address] [id number] [place] [address] Feb, [facility] [place] [facility] [address] [id number] [place] [address] Feb, [facility] [place] [facility] [address] [id number] [place] [address] Feb, [facility] [place] [facility] [address] [id number] [place] [address] Jan, [facility] [place] [facility] [address] [id number] [place] [address] Jan, [facility] [place] [facility] [address] [id number] [place] [address] Jan, [facility] [place] [facility] [address] [id number] [place] [address] Jan, [facility] [place] [facility] [address] [id number] [place] [address] Jan, [facility] [place] [facility] [address] [id number] [place] [address] Jan, [facility] [place] [facility] [address] [id number] [place] [address] Jan, [facility] [place] [facility] [address] [id number] [place] [address] Jan, [facility] [place] [facility] [address] [id number] [place] [address] Jan, [facility] [place] [facility] [address] [id number] [place] [address] Jan, [facility] [place] [facility] [address] [id number] [place] [address] Jan, [facility] [place] [facility] [address] [id number] [place] [address] Dec, [facility] [place] [facility] [address] [id number] [place] [address] Dec, [facility] [place] [facility] [address] [id number] [place] [address] Dec, [facility] [place] [facility] [address] [id number] [place] [address] Dec, [facility] [place] [facility] [address] [id number] [place] [address] November, [facility] [address] [id number] [place] [address] November, [facility] [place] [facility] [address] [id number] [place] [address] November, [facility] [address] [id number] [place] [address] November, [facility] [place] [facility] [address] [id number] [place] [address] November, [facility] [place] [facility] [address] [id number] [place] [address] November, [facility] [place] [facility] [address] [id number] [place] [address] November, [facility] [place] [facility] [address] [id number] [place] [address] November, [facility] [place] [facility] [address] [id number] [place] [address] November, [facility] [place] [facility] [address] [id number] [place] [address] November, [facility] [place] [facility] [address] [id number] [place] [address] November, [facility] [place] [facility] [address] [id number] [place] [address] Oct, [facility] [place] [facility] [address] [id number] [place] [address] Oct, [facility] [place] [facility] [address] [id number] [place] [address] Oct, [facility] [place] [facility] [address] [id number] [place] [address] Oct, [facility] [place] [facility] [address] [id number] [place] [address] Oct, [facility] [place] [facility] [address] [id number] [place] [address] Oct, [facility] [place] [facility] [address] [id number] [place] [address] Sep, [facility] [place] [facility] [address] [id number] [place] [address] Sep, [facility] [place] [facility] [address] [id number] [place] [address] Sep, [facility] [place] [facility] [address] [id number] [place] [address] Sep, [facility] [place] [facility] [address] [id number] [place] [address] Sep, [facility] [place] [facility] [address] [id number] [place] [address] Sep, [facility] [place] [facility] [address] [id number] [place] [address] Sep, [facility] [place] [facility] [address] [id number] [place] [address] Sep, [facility] [place] [facility] [address] [id number] [place] [address] Sep, [facility] [place] [facility] [address] [id number] [place] [address] Sep, [facility] [place] [facility] [address] [id number] [place] [address] Sep, [facility] [place] [facility] [address] [id number] [place] [address] Aug, [facility] [place] [facility] [address] [id number] [place] [address] Aug, [facility] [place] [facility] [address] [id number] [place] [address] Aug, [facility] [place] [facility] [address] [id number] [place] [address] Aug, [facility] [place] [facility] [address] [id number] [place] [address] Jul, [facility] [place] [facility] [address] [id number] [place] [address] Jul, [facility] [place] [facility] [address] [id number] [place] [address] Jul, [facility] [place] [facility] [address] [id number] [place] [address] Jul, [facility] [place] [facility] [address] [id number] [place] [address] Jul, [facility] [place] [facility] [address] [id number] [place] [address] Jul, [facility] [place] [facility] [address] [id number] [place] [address] Jul, [facility] [place] [facility] [address] [id number] [place] [address] Jul, [facility] [place] [facility] [address] [id number] [place] [address] Jul, [facility] [address] [id number] [place] [address] Jul, [facility] [address] [id number] [place] [address] Jul, [facility] [address] [id number] [place] [address] Jul, [facility] [address] [id number] [place] [address] Jul, [facility] [address] [id number] [place] [address] Jun, [facility] [address] [id number] [place] [address] Jun, [facility] [address] [id number] [place] [address] Jun, [facility] [address] [id number] [place] [address] Jun, [facility] [address] [id number] [place] [address] Jun, [facility] [address] [id number] [place] [address] Jun, [facility] [address] [id number] [place] [address] Jun, [facility] [place] [facility] [address] [id number] [place] [address] Jun, [facility] [place] [facility] [address] [id number] [place] [address] Jun, [facility] [place] [facility] [address] [id number] [place] [address] Jun, [facility] [place] [facility] [address] [id number], [place] [address] Jun, [facility] [address] [id number] [place] [address] Jun, [facility] [address] [id number] [place] [address] Jun, [facility] [address] [id number] [place] [address] Jun, [facility] [address] [id number] [place] [address] Jun, [facility] [address] [id number] [place] [address] Jun, [facility] [address] [id number] [place] [address] Jun, [facility] [address] [facility] [id number] [place] [address] Jun, [facility] [address] [address] [id number] [place] [address] Jun, [facility] [address] [id number], [place] [address] Jun, [facility] [address] [id number], [place] [address] Jun, [facility] [address] [id number], [place] [address] Jun, [facility] [address] [id number], [place] [address] Jun, [facility] [address] [id number], [place] [address] May, [facility] [address] [facility] [id number], [place] [address] May, [facility] [address] [facility] [id number] [place] [address] Apr, [facility] [address] [id number][place] [id number] Mar, [facility] [id number], [place] [address] Feb, [facility] [id number], [place] [address] Feb, [facility] [id number], [place] [address] Jan, [facility] [id number], [place] [address] Jan, [facility] [id number], [place] [address] November, [facility] [id number], [place] [address] November, [facility] [id number], [place] [address] Oct, [facility] [id number], [place] [address] Oct, [facility] [address] [id number] [id number] November, [facility] [id number], [place] [address] May, [facility] [id number], [place] [address] Feb, IMMUNIZATIONS No Known Immunizations SOCIAL HISTORY Never Assessed REASON FOR VISIT Test results PLAN OF CARE VITAL SIGNS MEDICATIONS Medication Instructions Dosage Frequency Start Date End Date Duration Status Ditropan XL 5 mg Orally twice a day 1 tablet 12h 14 Nov, 2017 Jan, 30 day(s) Active RESULTS No Results PROCEDURES No Known procedures INSTRUCTIONS MEDICATIONS ADMINISTERED No Known Medications MEDICAL (GENERAL) HISTORY Type Description Date Medical History hypertension Medical History gastroesophageal reflux disease (GERD) Medical History hyperlipidemia Medical History obesity Medical History chronic pain Medical History psoriasis Medical History abnormal liver enzymes, fatty liver disease Medical History abdominal tumor Medical History anxiety, depression Medical History [facility] abdomen at [facility] 09-14-16 shows a ventral hernia and fatty liver disease Medical History Pt no-showed colonoscopy Medical History no showed mammogram Surgical History tonsillectomy Surgical History appendectomy 03/2011 Surgical History hysterectomy, total with bilateral salpingo-oophorectomy (BSO) 03/2011 Surgical History large abdominal tumor/uterus removed 2010 Hospitalization History past surgeries
--- OUTSIDE RECORDS SUMMARY | 2019-02-08 10:40 | XMS REPORT ---
Author Author JORGE WILDA [facility] Address [address] [place] [address] Care Team Providers Care Postulant Name Role Phone WILDA PATEL Unavailable PROBLEMS Type Condition ICD9-CM Code QZZ54-YV Code Onset Dates Condition Status SNOMED Code Problem Emotional lability R45.86 Active 22340616 Problem Heartburn R12 Active 75774826 Problem High risk medication use Z79.899 Active 872014462 Problem Colon cancer screening Z12.11 Active 385027359 Problem Pulmonary emphysema, unspecified emphysema type J43.9 Active 68109123 Problem Mixed hyperlipidemia E78.2 Active 513215670 Problem Fatty liver disease, nonalcoholic K76.0 Active 414406405 Problem Colonoscopy refused Z53.20 Active 507969503 Problem Lumbago with sciatica, left side M54.42 Active 011551169 Problem Other chronic pain G89.29 Active 30835687 Problem Serum calcium elevated E83.52 Active 97766626 Problem Urinary frequency R35.0 Active 557098225 Problem Psoriasis L40.9 Active 8464147 Problem Hyperlipidemia E78.5 Active 34564114 Problem Essential hypertension with goal blood pressure less than 130\/80 I10 Active 63945847 Problem Dental caries K02.9 Active 60405692 Problem Lumbago with sciatica, right side M54.41 Active 767626441442556 Problem Substance abuse F19.10 Active 83370180 Problem Hematuria, unspecified type R31.9 Active 73034248 Problem Metabolic syndrome X E88.81 Active 670001620 Problem Elevated serum GGT level R74.8 Active 831323148 Problem Psoriasis vulgaris L40.0 Active 705256058 Problem Dysthymia F34.1 Active 46056551 Problem Breast cancer screening Z12.39 Active 446319583 Problem Weight loss R63.4 Active 204361448 Problem 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 Active 576470190 Problem Gynecologic exam normal Z01.419 Active 609180787 ALLERGIES Substance Reaction Event Type Date Status Codeine tachycardia Drug Allergy November, Active ENCOUNTERS Encounter Location Date Diagnosis [address] [id number] [id number] November, Serum calcium elevated E83.52 and Elevated serum GGT level R74.8 [facility] [address] [id number][place] [address] November, Fatty liver disease, nonalcoholic K76.[address] [facility] [address] [id number][place] [address] November, High risk medication use Z79.899 ; Hematuria, unspecified type R31.9 ; Dental caries K02.9 ; Urinary frequency R35.0 and Substance abuse F19.10 [facility] [address] [id number][place] [id number] Sep, [facility] [address] [id number][place] [address] Aug, [facility] [address] [id number], [place] [id number] Aug, [facility] [address] [id number], [place] [address] Jul, [facility] [address] [id number][place] [id number] Jun, [facility] [address] [id number], [place] 529296103 Jun, Hematuria, unspecified type R31.9 [facility] [address] [id number], [place] [id number] May, Lumbago with sciatica, left side M54.42 and Hematuria, unspecified type R31.[address] [facility] [address] [id number], [place] 167[address] May, Hematuria, unspecified type R31.[address] [facility] [address] [id number], [place] [address] Apr, High risk medication use Z79.899 ; Lumbago with sciatica, left side M54.42 ; Lumbago with sciatica, right side M54.41 ; Other chronic pain G89.29 ; Emotional lability R45.86 and Colonoscopy refused Z53.[address] [facility] [address] [id number], [place] [address] Feb, [facility] [address] [id number][place] [id number] Feb, [facility] [address] [facility] [id number], [place] [address] Jan, [facility] [address] [id number], [place] [address]67[address] Jan, Psoriasis vulgaris L40.[address] [facility] [address] [id number], [place] [address] Jan, High risk medication use Z79.[address] [facility] [address] [id number], [place] [address] Dec, Psoriasis vulgaris L40.0 [facility] [address] [id number], [place] [address]36[address] Oct, Mixed hyperlipidemia E78.2 and High risk medication use Z79.899 [facility] [address] [id number], [place] [address] Oct, [facility] [address] [id number], [place] [id number] Oct, [facility] [address] [id number], [place] 616[address]9432 Oct, Hyperlipidemia E78.5 and Weight loss R63.[address] [facility] [address] [id number], [place] [address] Oct, Gynecologic exam normal Z01.419 ; Breast cancer screening Z12.39 ; Weight loss R63.4 and Colon cancer screening Z12.[address] [facility] [address] [id number] [place] [address] Jul, [facility] [address] [id number] [place] [address] Jul, High risk medication use Z79.[address] [facility] [address] [id number] [place] [address] Jul, Metabolic syndrome X E88.81 ; Elevated serum GGT level R74.8 ; Dysthymia F34.1 and 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 [facility] [address] [id number] [place] 200[address] Jun, [facility] [address] [id number] [place] [address] May, [facility] [address] [id number], [place] [id number] May, [facility] [address] [id number], [place] 4[address]64219 May, High risk medication use Z79.[address] [facility] [address] [id number] [place] [address] May, [facility] [address] [id number], [place] 728870612 May, Psoriasis vulgaris L40.0 and Other shelter (current) drug therapy Z79.[address] [facility] [address] [id number] [place] [address] Mar, Hyperlipidemia E78.[address] [facility] [address] [id number] [place] 4379[address] Mar, [facility] [address] [id number] [place] [address] Mar, [facility] [address] [id number] [place] [address] Mar, Fatty liver disease, nonalcoholic K76.0 and Hyperlipidemia E78.[address] [facility] [address] [id number] [place] [address] Mar, [facility] [address] [id number] [place] 6[address] Mar, Fatty liver disease, nonalcoholic K76.0 ; Psoriasis L40.9 and Hyperlipidemia E78.[address] [facility] [address] [id number] [place] [address] Mar, [facility] [address] [id number][place] 239559158 Feb, [facility] [address] [id number] [place] [address] Feb, [facility] [address] [id number], [place] 537267506 Jan, [facility] [address] [id number], [place] 399977489 Dec, [facility] [address] [id number], [place] 914182573 Dec, [facility] [address] [facility] [id number], [place] [address] November, [facility] [address] [id number], [place] [address]194528[address] November, [facility] [address] [id number], [place] 826204483 Oct, [facility] [address] [id number], [place] 181802250 Oct, Fatty liver disease, nonalcoholic K76.0 and Encounter for immunization Z23 [facility] [address] [facility] [id number], [place] [address] Oct, [facility] [address] [id number], [place] 558393685 Sep, Fatty liver disease, nonalcoholic K76.[address] [facility] [address] [id number], [place] 823272917 Sep, Fatty liver disease, nonalcoholic K76.0 ; High risk medication use Z79.899 ; Emotional lability R45.86 ; Hyperlipidemia E78.5 and Essential hypertension with goal blood pressure less than 130\/80 I10 [facility] [address] [facility] [id number] [place] [address] Sep, [facility] [address] [id number], [place] 214750340 Aug, Mixed hyperlipidemia E78.2 and Heartburn R12 [facility] [address] [id number], [place] 870444539 Aug, High risk medication use Z79.899 ; Emotional lability R45.86 ; Pulmonary emphysema, unspecified emphysema type J43.9 and Heartburn R12 [facility] [address] [id number], [place] 575184380 Jul, [facility] [address] [id number], [place] 832993977 Jul, [facility] [address] [id number], [place] [address]2416529 Jun, [facility] [address] [id number], [place] 182193129 May, Right upper quadrant abdominal pain R10.11 and Fatty liver K76.0 [facility] [address] [id number], [place] 704178423 Apr, Elevated AFP R77.2 ; Fatty liver K76.0 ; Unspecified cirrhosis of liver K74.60 ; High risk medication use Z79.899 ; Anhedonia R45.84 and Psoriasis L40.9 [facility] [address] [id number], [place] 419961823 Apr, [facility] [address] [id number], [place] 458385433 Apr, Elevated liver enzymes R74.8 [facility] [address] [id number], [place] 032781211 Apr, Abdominal pain, left lower quadrant R10.32 ; Mixed hyperlipidemia E78.2 and Hyperlipidemia 272.4 [facility] [address] [id number], [place] [id number] 09 Apr, 2015 Encounter for routine gynecological examination Z01.419 and Breast cancer screening Z12.39 [facility] [address] [id number], [place] 082456801 Apr, Abdominal pain, left lower quadrant R10.32 ; Mixed hyperlipidemia E78.2 and Lumbago M54.5 [facility] [address] [id number], [place] 735774446 Mar, Psoriasis 696.1 ; Hyperlipidemia 272.4 and Chronic pain 338.29 [facility] [address] [id number], [place] 152313080 Mar, [facility] [address] [id number], [place] 423621488 Mar, [facility] [address] [id number], [place] 327875210 Mar, Rash and nonspecific skin eruption 782.1 [facility] [address] [id number], [place] [id number] Feb, Dermatitis 692.9 and Thoracic or lumbosacral neuritis or radiculitis, unspecified 724.4 [facility] [address] [id number], [place] 210338437 Feb, Dermatitis 692.9 and Follow-up examination V67.9 [facility] [address] [id number], [place] 334584677 Jan, [facility] [address] [id number], [place] 568318315 Jan, Allergic dermatitis 692.9 [facility] [address] [id number], [place] 158799589 Jan, Rash and nonspecific skin eruption 782.1 [facility] [address] [id number] [place] [id number] Jan, [facility] [address] [id number], [place] 712033904 Jan, Dermatitis 692.9 and Environmental allergies V15.[address] [facility] [address] [id number], [place] 840682173 Dec, [facility] [address] [id number], [place] 301000305 Dec, [facility] [address] [id number], [place] 978205283 Dec, [facility] [address] [id number], [place] 829144492 November, [facility] [address] [id number], [place] 521446318 November, Muscle spasm 728.85 [facility] [place] [facility] [address], [place] [address] Oct, [facility] [place] [facility] [address]65100[place], [place] [address] Oct, [facility] [place] [facility] [address]65100[place], [place] [address] Sep, [facility] [place] [facility] [address]65100[place], [place] [address] Sep, [facility] [place] [facility] [address] [id number], [place] [address] Sep, [facility] [place] [facility] [address] [facility] [id number], [place] [address] Sep, [facility] [place] [facility] [address] [id number], [place] [address] Sep, [facility] [place] [facility] [address]65100[place], [place] [address] Sep, [facility] [place] [facility] [id number] [place] [address] 16 Sep, 2014 [facility] [address] [id number] [place] [address] 16 Sep, 2014 [facility] [place] [facility] [address] [id number] [place] [address] 12 Aug, 2014 [facility] [address] [id number] [place] [address] Aug, [facility] [place] [facility] [address] [id number] [place] [address] 15 Jul, 2014 [facility] [address] [id number] [place] [address] 15 Jul, 2014 [facility] [place] [facility] [address] [id number] [place] [address] Jul, [facility] [address] [id number] [place] [address] Jul, [facility] [address] [id number] [place] [address] Jul, [facility] [facility] [address] [id number] [place] [address] Jul, [facility] [address] [id number] [place] [address] Jun, [facility] [place] [facility] [address] [id number] [place] [address] Jun, [facility] [place] [facility] [address] [id number] [place] [address] Jun, [facility] [place] [facility] [address] [id number] [place] [address] Jun, [facility] [place] [facility] [address] [id number] [place] [address] Jun, [facility] [place] [facility] [address] [id number] [place] [address] Jun, [facility] [place] [facility] [address] [id number] [place] [address] Jun, [facility] [place] [facility] [address] [id number] [place] [address] Jun, [facility] [place] [facility] [address] [id number] [place] [address] May, [facility] [place] [facility] [address] [id number] [place] [address] May, [facility] [place] [facility] [address] [id number] [place] [address] May, [facility] [place] [facility] [address] [id number] [place] [address] May, [facility] [place] [facility] [address] [id number] [place] [address] May, [facility] [place] [facility] [address] [id number] [place] [address] Apr, [facility] [place] [facility] [address] [id number] [place] [address] Apr, [facility] [place] [facility] [address] [id number], [place] [address] Apr, [facility] [place] [facility] [address] [id number], [place] [address] Apr, [facility] [place] [facility] [address] [id number], [place] [address] Apr, [facility] [place] [facility] [address] [id number] [place] [address] Apr, [facility] [place] [facility] [address] [id number] [place] [address] Apr, [facility] [place] [facility] [address] [id number], [place] [address] Apr, [facility] [place] [facility] [address] [id number], [place] [address] 20 Apr, 2013 [facility] [place] [facility] [address] [id number] [place] [address] 20 Apr, 2013 [facility] [place] [facility] [address] [id number] [place] [address] 17 Apr, 2013 [facility] [place] [facility] [address] [id number] [place] [address] 17 Apr, 2013 [facility] [place] [facility] [address] [id number] [place] [address] 16 Apr, 2013 [facility] [place] [facility] [address] [id number] [place] [address] 16 Apr, 2013 [facility] [place] [facility] [address] [id number] [place] [address] 15 Apr, 2014 [facility] [place] [facility] [address] [id number] [place] [address] 15 Apr, 2014 [facility] [place] [facility] [address] [id number] [place] [address] 14 Apr, 2014 [facility] [place] [facility] [address] [id number] [place] [address] 14 Apr, 2014 [facility] [place] [facility] [address] [id number] [place] [address] 13 Apr, 2014 [facility] [place] [facility] [address] [id number], [place] [address] 13 Apr, 2013 [facility] [place] [facility] [address] [id number], [place] [address] 06 Apr, 2013 [facility] [place] [facility] [address] [id number] [place] [address] 06 Apr, 2013 [facility] [place] [facility] [address] [id number], [place] [address] 05 Apr, 2013 [facility] [place] [facility] [address] [id number] [place] [address] 05 Apr, 2013 [facility] [place] [facility] [address] [id number] [place] [address] Apr, [facility] [place] [facility] [address] [id number] [place] [address] Apr, [facility] [place] [facility] [address] [id number] [place] [address] Mar, [facility] [place] [facility] [address] [id number] [place] [address] Mar, [facility] [place] [facility] [address] [id number] [place] [address] Feb, [facility] [place] [facility] [address] [id number] [place] [address] Feb, [facility] [place] [facility] [address] [id number] [place] [address] Feb, [facility] [place] [facility] [address] [id number] [place] [address] Feb, [facility] [place] [facility] [address] [id number] [place] [address] Jan, [facility] [place] [facility] [address] [id number] [place] [address] Jan, [facility] [place] [facility] [address] [id number] [place] [address] Jan, [facility] [place] [facility] [address] [id number] [place] [address] Jan, [facility] [place] [facility] [address] [id number] [place] [address] Jan, [facility] [place] [facility] [address] [id number] [place] [address] Jan, [facility] [place] [facility] [address] [id number] [place] [address] Jan, [facility] [place] [facility] [address] [id number] [place] [address] Jan, [facility] [place] [facility] [address] [id number] [place] [address] Jan, [facility] [place] [facility] [address] [id number] [place] [address] Jan, [facility] [place] [facility] [address] [id number] [place] [address] Jan, [facility] [place] [facility] [address] [id number] [place] [address] Dec, [facility] [place] [facility] [address] [id number] [place] [address] Dec, [facility] [place] [facility] [address] [id number] [place] [address] Dec, [facility] [place] [facility] [address] [id number] [place] [address] Dec, [facility] [place] [facility] [address] [id number] [place] [address] November, [facility] [place] [facility] [address] [id number] [place] [address] November, [facility] [place] [facility] [address] [id number] [place] [address] November, [facility] [place] [facility] [address] [id number] [place] [address] November, [facility] [place] [facility] [address] [id number] [place] [address] November, [facility] [place] [facility] [address] [id number] [place] [address] November, [facility] [place] [facility] [address] [id number] [place] [address] November, [facility] [place] [facility] [address] [id number] [place] [address] November, [facility] [place] [facility] [address] [id number] [place] [address] November, [facility] [place] [facility] [address] [id number] [place] [address] November, [facility] [place] [facility] [address] [id number] [place] [address] November, [facility] [place] [facility] [address] [id number] [place] [address] Oct, [facility] [place] [facility] [address] [id number] [place] [address] Oct, [facility] [place] [facility] [address] [id number] [place] [address] Oct, [facility] [place] [facility] [address] [id number] [place] [address] Oct, [facility] [place] [facility] [address] [id number] [place] [address] Oct, [facility] [place] [facility] [address] [id number] [place] [address] Oct, [facility] [place] [facility] [address] [id number] [place] [address] Sep, [facility] [place] [facility] [address] [id number] [place] [address] Sep, [facility] [place] [facility] [address] [id number] [place] [address] Sep, [facility] [place] [facility] [address] [id number] [place] [address] Sep, [facility] [place] [facility] [address] [id number] [place] [address] Sep, [facility] [place] [facility] [address] [id number] [place] [address] Sep, [facility] [place] [facility] [address] [id number] [place] [address] Sep, [facility] [place] [facility] [address] [id number] [place] [address] Sep, [facility] [place] [facility] [address] [id number] [place] [address] Sep, [facility] [place] [facility] [address] [id number] [place] [address] Sep, [facility] [place] [facility] [address] [id number] [place] [address] Sep, [facility] [place] [facility] [address] [id number] [place] [address] Aug, [facility] [place] [facility] [address] [id number] [place] [address] Aug, [facility] [place] [facility] [address] [id number] [place] [address] Aug, [facility] [place] [facility] [address] [id number] [place] [address] Aug, [facility] [place] [facility] [address] [id number] [place] [address] Jul, [facility] [place] [facility] [address] [id number] [place] [address] Jul, [facility] [place] [facility] [address] [id number] [place] [address] Jul, [facility] [place] [facility] [address] [id number] [place] [address] Jul, [facility] [place] [facility] [address] [id number] [place] [address] Jul, [facility] [place] [facility] [address] [id number] [place] [address] Jul, [facility] [place] [facility] [address] [id number] [place] [address] Jul, [facility] [place] [facility] [address] [id number] [place] [address] Jul, [facility] [address] [id number] [place] [address] Jul, [facility] [place] [facility] [address] [id number] [place] [address] Jul, [facility] [place] [facility] [address] [id number] [place] [address] Jul, [facility] [place] [facility] [address] [id number] [place] [address] Jul, [facility] [place] [facility] [address] [id number] [place] [address] Jul, [facility] [place] [facility] [address] [id number] [place] [address] Jun, [facility] [address] [id number] [place] [address] Jun, [facility] [place] [facility] [address] [id number] [place] [address] Jun, [facility] [place] [facility] [address] [id number] [place] [address] Jun, [facility] [place] [facility] [address] [id number] [place] [address] Jun, [facility] [place] [facility] [address] [id number] [place] [address] Jun, [facility] [place] [facility] [address] [id number] [place] [address] Jun, [facility] [place] [facility] [address] [id number] [place] [address] Jun, [facility] [place] [facility] [address] [id number] [place] [address] Jun, [facility] [place] [facility] [address] [id number] [place] [address] Jun, [facility] [place] [facility] [address] [id number] [place] [address] Jun, 2012 [facility] [address] [id number] [place] [address] Jun, [facility] [place] [facility] [address] [id number] [place] [address] Jun, 2012 [facility] [place] [facility] [address] [id number] [place] [address] Jun, 2012 [facility] [place] [facility] [address] [id number] [place] [address] Jun, 2012 [facility] [place] [facility] [address] [id number] [place] [address] Jun, [facility] [place] [facility] [address] [id number] [place] [address] Jun, [facility] [place] [facility] [address] [id number] [place] [address] Jun, [facility] [place] [facility] [address] [id number] [place] [address] Jun, [facility] [place] [facility] [address] [id number] [place] [address] Jun, [facility] [place] [facility] [address] [facility] [id number] [place] [address] Jun, [facility] [place] [facility] [address] [id number] [place] [address] Jun, [facility] [place] [facility] [address] [id number] [place] [address] Jun, [facility] [place] [facility] [address] [id number] [place] [address] May, [facility] [place] [facility] [address] [address] [id number] [place] [address] May, [facility] [place] [facility] [address] [id number] [place] [address] Apr, [facility] [address] [facility] [id number] [id number] Mar, [facility] [address], [place] [address] Feb, [facility] [id number] [address] Feb, [facility] [address], [place] [address] Jan, [facility] [id number] [address] Jan, [facility] [address] [address] November, [facility] [address] [address] November, [facility] [address] [address] Oct, [facility] [id number] [address] Oct, [facility] [address] [id number] [id number] November, [facility] [id number] [address] May, [facility] [id number] [address] Feb, IMMUNIZATIONS No Known Immunizations SOCIAL HISTORY Never Assessed REASON FOR VISIT Depression-Med refills and has toothaches. Had coffe with creamer in it this am. Hakan linda PLAN OF CARE Activity Details Follow Up 2 Months Reason:depression VITAL SIGNS Height 63 in 2017-11-23 Weight 174.3 lbs 2017-11-23 Temperature 98.1 degrees Fahrenheit 2017-11-23 Heart Rate 88 bpm 2017-11-23 Respiratory Rate 18 2017-11-23 BMI 30.87 kg/m2 2017-11-23 Blood pressure systolic 102 mmHg 2017-11-23 Blood pressure diastolic 60 mmHg 2017-11-23 MEDICATIONS Medication Instructions Dosage Frequency Start Date End Date Duration Status Metformin HCl 500 MG TAKE 1 TABLET BY MOUTH TWICE DAILY WITH MORNING AND EVENING MEALS 30 Active Triamcinolone Acetonide 0.1 % Externally Twice a day, 14 days on, 14 days off 1 application to affected area Mar, Not-Taking Lisinopril 10 MG TAKE 1 TABLET BY MOUTH ONCE DAILY 90 Active Metoprolol Tartrate 50 MG TAKE 1 TABLET BY MOUTH EVERY DAY 30 Active Proventil HFA 108 (90 Base) MCG/ACT INHALE 2 PUFFS FOUR TIMES DAILY NEEDED 25 Active Remeron 30 MG Orally Once a day take 1 tablet by Oral route before bedtime 1 time per day 24h Active Multivitamins Unknown Penicillin V Potassium 500 mg Orally 3 times a day 1 tablet 8h November, November, 14 days Active HydrOXYzine HCl 25 MG Orally 1 time a day 1 tablet as needed Active Methotrexate 2.5 MG Orally once weekly 3 tablets Jan, Unknown Atorvastatin Calcium 40 MG TAKE 1 TABLET BY MOUTH ONCE DAILY 90 Active Celexa 40 mg Orally Once a day 1 tablet 24h Active Citalopram Hydrobromide 40 MG TAKE ONE TABLET BY MOUTH ONCE DAILY FOR 90 DAYS 90 Active Tricor 145 MG Orally Once a day 1 tablet 24h Active Taltz 80 MG/ML 1 ml Unknown BusPIRone HCl 10 mg Orally Once a day 1 tablet 24h 90 days Active Mirtazapine 30 MG TAKE 1 TABLET BY MOUTH DAILY AT BEDTIME 30 Active Crestor 20 mg Orally Once a day 1 tablet 24h 28 Mar, 2016 Active Omeprazole 20 MG Orally Once a day before a meal 1 capsule Active Claritin 10 MG 1 tablet Once a day Orally 30 day(s) 30 Unknown Folic Acid 1 MG Orally Once a day 1 tablet 24h Jan, Not-Taking Cyclobenzaprine HCl 10 MG Orally 2 times a day as needed for pain 1 tablet Oct, Active Metoprolol Succinate ER 50 mg Orally Once a day 1 tablet 24h Sep, Unknown Fenofibrate 145 MG TAKE 1 TABLET BY MOUTH ONCE DAILY 30 Active Welchol 625 MG Orally Twice a day 3 tablets with meals 12h Oct, Unknown RESULTS No Results PROCEDURES Procedure Date Ordered Result Body Site LIPID PANEL November 23, 2017 COMPREHEN METABOLIC PANEL November 23, 2017 URINE CULTURE/COLONY COUNT November 23, 2017 DRUG TEST PRSMV DIR OPT OBS November 23, 2017 COMPLETE CBC W/AUTO DIFF WBC November 23, 2017 RENAL FUNCTION PANEL November 23, 2017 VENIPUNCT, ROUTINE* November 23, 2017 URINALYSIS, AUTO, W/O SCOPE November 23, 2017 INSTRUCTIONS MEDICATIONS ADMINISTERED No Known Medications MEDICAL (GENERAL) HISTORY Type Description Date Medical History hypertension Medical History gastroesophageal reflux disease (GERD) Medical History hyperlipidemia Medical History obesity Medical History chronic pain Medical History psoriasis Medical History abnormal liver enzymes, fatty liver disease Medical History abdominal tumor Medical History anxiety, depression Medical History [facility] abdomen at [facility] 09-14-16 shows a ventral hernia and fatty liver disease Medical History Pt no-showed colonoscopy Medical History no showed mammogram Surgical History tonsillectomy Surgical History appendectomy 03/2011 Surgical History hysterectomy, total with bilateral salpingo-oophorectomy (BSO) 03/2011 Surgical History large abdominal tumor/uterus removed 2010 Hospitalization History past surgeries
--- OUTSIDE RECORDS SUMMARY | 2019-02-08 10:41 | XMS REPORT ---
Author Author ANTON CONTRERAS [facility] eClinicalWorks Address Unknown Phone Unavailable Care Team Providers Care Commercial Real Estate Appraiser Name Role Phone ANTON CONTRERAS Unavailable Allergies, Adverse Reactions, Alerts Substance Reaction Event Type Codeine Info Not Available Drug Allergy Problems Problem Type Condition ICD-9 Code Onset Dates Condition Status Assessment Rash and nonspecific skin eruption 782.1 Active Problem Thoracic or lumbosacral neuritis or radiculitis, unspecified 724.4 Active Problem Unspecified otalgia 388.70 Active Problem Unspecified local infection of skin and subcutaneous tissue 686.9 Active Problem Encounter for long-term (current) use of other medications V58.69 Active Problem Unspecified breast screening V76.10 Active Problem Unspecified essential hypertension 401.9 Active Problem Other chronic pain 338.29 Active Problem Proteinuria 791.0 Active Problem Other abnormal blood chemistry 790.6 Active Problem Acute bronchitis 466.0 Active Problem Abdominal pain, left upper quadrant 789.02 Active Problem Other chronic nonalcoholic liver disease 571.8 Active Problem Muscle spasm 728.85 Active Problem Contact dermatitis and other eczema, due to unspecified cause 692.9 Active Problem Dysthymic disorder 300.4 Active Problem Erythema nodosum 695.2 Active Problem Counseling on substance use and abuse V65.42 Active Problem Esophageal reflux 530.81 Active Problem Nondependent cannabis abuse, unspecified 305.20 Active Problem Encounter for removal of sutures V58.32 Active Problem Personal history of unspecified disease V13.9 Active Problem Other screening mammogram V76.12 Active Problem Allergic rhinitis, cause unspecified 477.9 Active Problem Other psoriasis 696.1 Active Problem Need for prophylactic vaccination and inoculation, Influenza V04.81 Active Problem Cough 786.2 Active Medications Medication Code System Code Instructions Start Date End Date Status Dosage Metoprolol Tartrate [facility] 21394300205 50 MG take 1 tablet by Oral route 1 time per day with meals ER Lisinopril [facility] 03847354260 10 MG 1 tablet by Oral route 1 time per day Pepcid [facility] 36997140879 20 MG 1 tablet by Oral route 2 times per day Proventil HFA [facility] 90530485752 108 (90 Base) MCG/ACT INHALE 2 PUFFS EVERY 6 HOURS NEEDED FOR COUGH / WHEEZING Cyclobenzaprine HCl [facility] [address]-39 10 MG Orally 2 times a day November 17, 2014 1 tablet Famotidine [facility] 51706594404 20 MG TAKE 1 TABLET BY MOUTH TWICE DAILY. Tricor [facility] [address]-05 145 mg Apr 21, 2014 1 tablet by Oral route 1 time per day Zocor [facility] [address]-29 40 mg Apr 16, 2014 1 tablet by Oral route 1 time per day Remeron [facility] 35849780715 30 MG take 1 tablet by Oral route before bedtime 1 time per day Prilosec [facility] 49139492206 40 MG take 1 capsule by Oral route before a meal 1 time per day metformin [facility] 0 500 mg Jun 30, 2014 take 1 tablet by Oral route 2 times per day with morning and evening meals Multivitamins [facility] [address] Orally not defined Celexa [facility] [address]-72 40 MG Orally Once a day Jun 19, 2014 1 tablet Albuterol Sulfate [facility] [address]-13 90 mcg/actuation May 06, 2014 2 puffs by Inhalation route every 6 hours as needed PRN cough or wheezing PredniSONE [facility] [address]-46 20 MG Orally Twice a day for 4 days then one tablet twice a day for 4, then 1/2 tab for 6 days Mar 30, 2015 Apr 13, 2015 1 tablet with food or milk Claritin [facility] [address]-33 10 MG Orally Once a day January 21, 2015 May 21, 2015 1 tablet Procedures Procedure Coding System Code Date SOLUMEDROL (UP TO 125 MG) CPT-4 J2930 Mar 30, 2015 THER/PROPH/DIAG INJ, SC/IM CPT-4 76489 Mar 30, 2015 Office Visit, Est Pt., Level 3 CPT-4 35008 Mar 30, 2015 Vital Signs Date/Time: Mar 30, 2015 Temperature 97.2 F Weight 187.6 lbs Height 63 in BMI 33.23 Index Blood Pressure Diastolic 70 mmHg Blood Pressure Systolic 122 mmHg Cardiac Monitoring Heart Rate 81 bpm Results No Known Results Summary Purpose eClinicalWorks Submission
--- OUTSIDE RECORDS SUMMARY | 2019-02-08 10:41 | XMS REPORT ---
Author SHA Bass [facility] eClinicalWorks Address Unknown Phone Unavailable Care Team Providers Care Cotton Inspector Name Role Phone SHA RÍOS CP Unavailable Allergies No Known Allergies Problems Problem Type Condition ICD-9 Code Onset Dates Condition Status Problem Thoracic or lumbosacral neuritis or radiculitis, [...] V04.81 Active Problem Cough 786.2 Active Medications No Known Medications Results No Known Results Summary Purpose eClinicalWorks Submission
--- OUTSIDE RECORDS SUMMARY | 2019-02-08 10:41 | XMS REPORT ---
Author Author JORGE WILDA [facility] Address [address] [place] [address] Care Team Providers Care Ct Scan Tech Name Role Phone WILDA PATEL Unavailable PROBLEMS Type Condition ICD9-CM Code JKN01-VL Code Onset Dates Condition Status SNOMED Code Problem Emotional lability R45.86 Active 46360431 Problem Heartburn R12 Active 82654243 Problem High risk medication use Z79.899 Active 533565739 Problem Colon cancer screening Z12.11 Active 034569856 Problem Pulmonary emphysema, unspecified emphysema type J43.9 Active 76904722 Problem Mixed hyperlipidemia E78.2 Active 966169647 Problem Fatty liver disease, nonalcoholic K76.0 Active 099729928 Problem Colonoscopy refused Z53.20 Active 508940756 Problem Lumbago with sciatica, left side M54.42 Active 494402335 Problem Other chronic pain G89.29 Active 23368670 Problem Serum calcium elevated E83.52 Active 96719155 Problem Urinary frequency R35.0 Active 232487828 Problem Psoriasis L40.9 Active 3811032 Problem Hyperlipidemia E78.5 Active 82190221 Problem Essential hypertension with goal blood pressure less than 130\/80 I10 Active 09340573 Problem Dental caries K02.9 Active 36121487 Problem Lumbago with sciatica, right side M54.41 Active 385811089440620 Problem Substance abuse F19.10 Active 13407316 Problem Hematuria, unspecified type R31.9 Active 12320364 Problem Metabolic syndrome X E88.81 Active 216524935 Problem Elevated serum GGT level R74.8 Active 035671550 Problem Psoriasis vulgaris L40.0 Active 386967514 Problem Dysthymia F34.1 Active 71087843 Problem Breast cancer screening Z12.39 Active 808943255 Problem Weight loss R63.4 Active 617029134 Problem 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 Active 451099659 Problem Gynecologic exam normal Z01.419 Active 241876628 ALLERGIES No Information ENCOUNTERS Encounter Location Date Diagnosis [facility] [address] [id number] [place] [address] Jan, [facility] [address] [id number] [place] [address] November, Serum calcium elevated E83.52 and Elevated serum GGT level R74.8 [facility] [address] [id number] [place] [address] November, Fatty liver disease, nonalcoholic K76.[address] [facility] [address] [id number] [place] [address] November, High risk medication use Z79.899 ; Hematuria, unspecified type R31.9 ; Dental caries K02.9 ; Urinary frequency R35.0 and Substance abuse F19.10 [facility] [address] [id number] [place] [address] Sep, [facility] [address] [id number] [place] [address] Aug, [facility] [address] [id number] [place] [address] Aug, [facility] [address] [id number] [place] [address] Jul, [facility] [address] [id number] [place] [address] Jun, [facility] [address] [id number] [place] [address] Jun, Hematuria, unspecified type R31.9 [facility] [address] [id number] [place] [address] May, Lumbago with sciatica, left side M54.42 and Hematuria, unspecified type R31.9 [facility] [address] [id number] [place] [address] May, Hematuria, unspecified type R31.[address] [facility] [address] [id number] [place] [address] Apr, High risk medication use Z79.899 ; Lumbago with sciatica, left side M54.42 ; Lumbago with sciatica, right side M54.41 ; Other chronic pain G89.29 ; Emotional lability R45.86 and Colonoscopy refused Z53.[address] [facility] [address] [id number] [place] [id number] Feb, [facility] [address] [id number] [place] [address] Feb, [facility] [place] [address] [facility] [id number] [address] Jan, [facility] [address] [id number] [place] [address] Jan, Psoriasis vulgaris L40.[address] [facility] [address] [id number] [place] 50[address]676 Jan, High risk medication use Z79.899 [facility] [address] [id number] [place] 268[address]879 Dec, Psoriasis vulgaris L40.0 [facility] [address] [id number] [place] [address] Oct, Mixed hyperlipidemia E78.2 and High risk medication use Z79.[address] [facility] [address] [id number] [place] [address] Oct, [facility] [address] [id number] [place] [address] Oct, [facility] [address] [id number] [place] [address] Oct, Hyperlipidemia E78.5 and Weight loss R63.[address] [facility] [address] [id number] [place] [address] Oct, Gynecologic exam normal Z01.419 ; Breast cancer screening Z12.39 ; Weight loss R63.4 and Colon cancer screening Z12.[address] [facility] [address] [id number] [place] [address] Jul, [facility] [address] [id number] [place] [address] Jul, High risk medication use Z79.[address] [facility] [address] [id number] [place] [address] Jul, Metabolic syndrome X E88.81 ; Elevated serum GGT level R74.8 ; Dysthymia F34.1 and 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 [facility] [address] [id number] [place] 347229043 Jun, [facility] [address] [id number] [place] 8849[address]286 May, [facility] [address] [id number] [place] 543[address]07 May, [facility] [address] [id number] [place] 186808377 May, High risk medication use Z79.[address] [facility] [address] [id number] [place] [address] May, [facility] [address] [id number] [place] [address] May, Psoriasis vulgaris L40.0 and Other fdc (current) drug therapy Z79.[address] [facility] [address] [id number] [place] 8110[address] Mar, Hyperlipidemia E78.[address] [facility] [address] [id number] [place] [address] Mar, [facility] [address] [id number] [place] [address] Mar, [facility] [address] [id number] [place] [address] Mar, Fatty liver disease, nonalcoholic K76.0 and Hyperlipidemia E78.[address] [facility] [address] [id number] [place] [address] Mar, [facility] [address] [id number] [place] [address] Mar, Fatty liver disease, nonalcoholic K76.0 ; Psoriasis L40.9 and Hyperlipidemia E78.[address] [facility] [address] [id number] [place] [address] Mar, [facility] [address] [id number][place] [address] Feb, [facility] [address] [id number] [place] [address]16[address] Feb, [facility] [address] [id number] [place] [address]96[address]43[address] Jan, [facility] [address] [id number] [place] 94290[address] Dec, [facility] [address] [id number] [place] 95[address] Dec, [facility] [place] [address] [facility] [id number] [address] November, [facility] [address] [id number] [place] 306407690 November, [facility] [address] [id number] [place] [address]47[address] Oct, [facility] [address] [id number] [place] 824447[address] Oct, Fatty liver disease, nonalcoholic K76.0 and Encounter for immunization Z23 [facility] [place] [address] [facility] [id number], [place] [address] Oct, [facility] [address] [id number] [place] 156306992 Sep, Fatty liver disease, nonalcoholic K76.[address] [facility] [address] [id number] [place] 315215482 Sep, Fatty liver disease, nonalcoholic K76.0 ; High risk medication use Z79.899 ; Emotional lability R45.86 ; Hyperlipidemia E78.5 and Essential hypertension with goal blood pressure less than 130\/80 I10 [facility] [address] [facility] [id number] [place] [address] Sep, [facility] [address] [id number] [place] 9661254[address] Aug, Mixed hyperlipidemia E78.2 and Heartburn R12 [facility] [address] [id number] [place] [address] Aug, High risk medication use Z79.899 ; Emotional lability R45.86 ; Pulmonary emphysema, unspecified emphysema type J43.9 and Heartburn R12 [facility] [address] [id number] [place] 47[address] Jul, [facility] [address] [id number] [place] [address] Jul, [facility] [address] [id number] [place] [address] Jun, [facility] [address] [id number] [place] 5[address]887[address] May, Right upper quadrant abdominal pain R10.11 and Fatty liver K76.0 [facility] [address] [id number] [place] 0382094[address] Apr, Elevated AFP R77.2 ; Fatty liver K76.0 ; Unspecified cirrhosis of liver K74.60 ; High risk medication use Z79.899 ; Anhedonia R45.84 and Psoriasis L40.9 [facility] [address] [id number] [place] 19386[address] Apr, [facility] [address] [id number] [place] 048404328 Apr, Elevated liver enzymes R74.8 [facility] [address] [id number] [place] 175078686 Apr, Abdominal pain, left lower quadrant R10.32 ; Mixed hyperlipidemia E78.2 and Hyperlipidemia 272.4 [facility] [address] [id number] [place] 955[address]24[address] 09 Apr, 2015 Encounter for routine gynecological examination Z01.419 and Breast cancer screening Z12.39 [facility] [address] [id number] [place] 089[address]454 Apr, Abdominal pain, left lower quadrant R10.32 ; Mixed hyperlipidemia E78.2 and Lumbago M54.5 [facility] [address] [id number] [place] 786383680 Mar, Psoriasis 696.1 ; Hyperlipidemia 272.4 and Chronic pain 338.29 [facility] [address] [place] [address] AVE [id number] [place] 463117994 Mar, [facility] [address] [id number] [place] [id number] Mar, [facility] [address] [place] [address] AVE [id number] [place] 658889217 Mar, Rash and nonspecific skin eruption 782.1 [facility] [address] [place] [address] AVE [id number] [place] 712060140 Feb, Dermatitis 692.9 and Thoracic or lumbosacral neuritis or radiculitis, unspecified 724.4 [facility] [address] [id number] [place] 959882293 Feb, Dermatitis 692.9 and Follow-up examination V67.9 [facility] [address] [id number] [place] 136558147 Jan, [facility] [address] [id number] [place] 833217964 Jan, Allergic dermatitis 692.9 [facility] [address] [id number] [place] 614018461 Jan, Rash and nonspecific skin eruption 782.[address] [facility] [address] [id number] [place] 870850596 Jan, [facility] [address] [id number] [place] 576127561 Jan, Dermatitis 692.9 and Environmental allergies V15.[address] [facility] [address] [id number] [place] 001882957 Dec, [facility] [address] [id number] [place] 409034803 Dec, [facility] [address] [id number] [place] 688017001 Dec, [facility] [address] [id number] [place], [place] 531813973 November, [facility] [address] [id number] [place] 020933076 November, Muscle spasm 728.85 [facility] [id number] [address] Oct, [facility] [address] [id number], [place] [address] Oct, [facility] [id number], [place] [address] Sep, [facility] [address] [id number], [place] [address] Sep, [facility] [id number] [address] Sep, [facility] [id number] [place] [address] Sep, [facility] [address] [id number], [place] [address] Sep, [facility] [id number] [place] [address] Sep, [facility] [place] [facility] [address] [id number] [place] [address] 16 Sep, 2014 [facility] [place] [facility] [address] [id number] [place] [address] 16 Sep, 2014 [facility] [place] [facility] [address] [id number] [place] [address] Aug, [facility] [place] [facility] [address] [id number] [place] [address] Aug, [facility] [place] [facility] [address] [id number] [place] [address] Jul, [facility] [place] [facility] [address] [id number] [place] [address] Jul, [facility] [place] [facility] [address] [id number] [place] [address] Jul, [facility] [place] [facility] [address] [id number] [place] [address] Jul, [facility] [place] [facility] [address] [id number] [place] [address] Jul, [facility] [place] [facility] [address] [id number] [place] [address] Jul, [facility] [place] [facility] [address] [id number] [place] [address] 18 Jun, 2014 [facility] [place] [facility] [address] [id number], [place] [address] Jun, [facility] [place] [facility] [address] [id number] [place] [address] 15 Jun, 2014 [facility] [place] [facility] [address] [id number] [place] [address] 15 Jun, 2014 [facility] [place] [facility] [address] [id number] [place] [address] 09 Jun, 2014 [facility] [place] [facility] [address] [id number] [place] [address] Jun, [facility] [place] [facility] [address] [id number] [place] [address] Jun, [facility] [place] [facility] [address] [id number] [place] [address] Jun, [facility] [place] [facility] [address] [id number] [place] [address] May, [facility] [place] [facility] [address] [id number] [place] [address] May, [facility] [place] [facility] [address] [id number] [place] [address] May, [facility] [place] [facility] [address] [id number] [place] [address] May, [facility] [place] [facility] [address] [id number] [place] [address] May, [facility] [place] [facility] [address] [id number] [place] [address] Apr, [facility] [place] [facility] [address] [id number] [place] [address] Apr, [facility] [place] [facility] [address] [facility] [id number] [place] [address] Apr, [facility] [place] [facility] [address] [id number] [place] [address] Apr, [facility] [place] [facility] [address] [id number] [place] [address] Apr, [facility] [place] [facility] [address] [id number] [place] [address] Apr, [facility] [place] [facility] [address] [id number] [place] [address] Apr, [facility] [place] [facility] [address] [id number] [place] [address] Apr, [facility] [place] [facility] [address] [id number] [place] [address] 20 Apr, 2014 [facility] [place] [facility] [address] [id number] [place] [address] 20 Apr, 2014 [facility] [place] [facility] [address] [id number] [place] [address] 17 Apr, 2014 [facility] [place] [facility] [address] [id number] [place] [address] 17 Apr, 2014 [facility] [place] [facility] [address] [id number] [place] [address] 16 Apr, 2014 [facility] [place] [facility] [address] [id number] [place] [address] 16 Apr, 2014 [facility] [place] [facility] [address] [id number] [place] [address] 15 Apr, 2014 [facility] [place] [facility] [address] [id number] [place] [address] 15 Apr, 2014 [facility] [place] [facility] [address] [id number] [place] [address] 14 Apr, 2014 [facility] [place] [facility] [address] [id number] [place] [address] 14 Apr, 2014 [facility] [place] [facility] [address] [id number] [place] [address] 13 Apr, 2014 [facility] [place] [facility] [address] [id number] [place] [address] 13 Apr, 2014 [facility] [place] [facility] [address] [id number] [place] [address] 06 Apr, 2014 [facility] [place] [facility] [address] [id number] [place] [address] 06 Apr, 2014 [facility] [place] [facility] [address] [id number] [place] [address] 05 Apr, 2014 [facility] [place] [facility] [address] [id number] [place] [address] Apr, [facility] [place] [facility] [address] [id number] [place] [address] Apr, [facility] [place] [facility] [address] [id number] [place] [address] Apr, [facility] [place] [facility] [address] [id number] [place] [address] Mar, [facility] [place] [facility] [address] [id number] [place] [address] Mar, [facility] [place] [facility] [address] [id number] [place] [address] Feb, [facility] [place] [facility] [address] [id number] [place] [address] Feb, [facility] [place] [facility] [address] [id number] [place] [address] Feb, [facility] [place] [facility] [address] [id number] [place] [address] Feb, [facility] [place] [facility] [address] [id number] [place] [address] Jan, [facility] [place] [facility] [address] [id number] [place] [address] Jan, [facility] [place] [facility] [address] [id number] [place] [address] Jan, [facility] [place] [facility] [address] [id number] [place] [address] Jan, [facility] [place] [facility] [address] [id number] [place] [address] Jan, [facility] [place] [facility] [address] [id number] [place] [address] Jan, [facility] [place] [facility] [address] [id number] [place] [address] Jan, [facility] [place] [facility] [address] [id number] [place] [address] Jan, [facility] [place] [facility] [address] [id number] [place] [address] Jan, [facility] [place] [facility] [address] [id number] [place] [address] Jan, [facility] [place] [facility] [address] [id number] [place] [address] Jan, [facility] [place] [facility] [address] [id number] [place] [address] Dec, [facility] [place] [facility] [address] [id number] [place] [address] Dec, [facility] [place] [facility] [address] [id number] [place] [address] Dec, [facility] [place] [facility] [address] [id number] [place] [address] Dec, [facility] [address] [id number] [place] [address] November, [facility] [place] [facility] [address] [id number] [place] [address] November, [facility] [address] [id number] [place] [address] November, [facility] [place] [facility] [address] [id number] [place] [address] November, [facility] [place] [facility] [address] [id number] [place] [address] November, [facility] [place] [facility] [address] [id number] [place] [address] November, [facility] [place] [facility] [address] [id number] [place] [address] November, [facility] [place] [facility] [address] [id number] [place] [address] November, [facility] [place] [facility] [address] [id number] [place] [address] November, [facility] [place] [facility] [address] [id number] [place] [address] November, [facility] [place] [facility] [address] [id number] [place] [address] November, [facility] [place] [facility] [address] [id number] [place] [address] Oct, [facility] [place] [facility] [address] [id number] [place] [address] Oct, [facility] [place] [facility] [address] [id number] [place] [address] Oct, [facility] [place] [facility] [address] [id number] [place] [address] Oct, [facility] [place] [facility] [address] [id number] [place] [address] Oct, [facility] [place] [facility] [address] [id number] [place] [address] Oct, [facility] [place] [facility] [address] [id number] [place] [address] Sep, [facility] [place] [facility] [address] [id number] [place] [address] Sep, [facility] [place] [facility] [address] [id number] [place] [address] Sep, [facility] [place] [facility] [address] [id number] [place] [address] Sep, [facility] [place] [facility] [address] [id number] [place] [address] Sep, [facility] [place] [facility] [address] [id number] [place] [address] 18 Sep, 2013 [facility] [place] [facility] [address] [id number] [address] Sep, [facility] [place] [facility] [address] [id number] [place] [address] Sep, [facility] [place] [facility] [address] [id number] [place] [address] Sep, [facility] [place] [facility] [address] [id number] [place] [address] Sep, [facility] [place] [facility] [address] [id number] [place] [address] Sep, [facility] [place] [facility] [address] [id number] [place] [address] Aug, [facility] [place] [facility] [address] [id number] [place] [address] Aug, [facility] [place] [facility] [address] [id number] [place] [address] Aug, [facility] [place] [facility] [address] [id number] [place] [address] Aug, [facility] [place] [facility] [address] [id number] [place] [address] Jul, [facility] [place] [facility] [address] [facility] [id number] [place] [address] Jul, [facility] [place] [facility] [address] [id number] [place] [address] Jul, [facility] [place] [facility] [address] [id number] [place] [address] Jul, [facility] [place] [facility] [address] [id number] [place] [address] Jul, [facility] [place] [facility] [address] [id number] [place] [address] Jul, [facility] [place] [facility] [address] [id number] [place] [address] Jul, [facility] [place] [facility] [address] [id number] [place] [address] Jul, [facility] [address] [id number] [place] [address] Jul, [facility] [address] [id number] [place] [address] Jul, [facility] [address] [id number] [place] [address] Jul, [facility] [address] [id number] [place] [address] Jul, [facility] [address] [id number] [place] [address] Jul, [facility] [address] [id number] [place] [address] Jun, [facility] [address] [id number] [place] [address] Jun, [facility] [address] [id number] [place] [address] Jun, [facility] [address] [id number] [place] [address] Jun, [facility] [address] [id number] [place] [address] Jun, [facility] [address] [id number] [place] [address] Jun, [facility] [place] [facility] [address] [id number] [place] [address] Jun, [facility] [place] [facility] [address] [id number] [place] [address] Jun, [facility] [place] [facility] [address] [id number] [place] [address] Jun, [facility] [place] [facility] [address] [id number] [place] [address] Jun, [facility] [address] [id number] [place] [address] Jun, [facility] [place] [facility] [address] [id number] [place] [address] Jun, [facility] [place] [facility] [address] [address] [id number] [place] [address] Jun, [facility] [place] [facility] [address] [id number] [place] [address] Jun, [facility] [place] [facility] [address] [id number] [place] [address] Jun, [facility] [place] [facility] [address] [id number] [place] [address] Jun, [facility] [place] [facility] [address] [id number] [place] [address] Jun, [facility] [place] [facility] [address] [id number] [place] [address] Jun, [facility] [place] [facility] [address] [id number] [place] [address] Jun, [facility] [place] [facility] [address] [id number] [place] [address] Jun, [facility] [place] [facility] [address] [id number], [place] [address] Jun, [facility] [place] [facility] [address] [id number], [place] [address] Jun, [facility] [place] [facility] [address] [id number] [place] [address] Jun, [facility] [place] [facility] [address] [id number], [place] [address] May, [facility] [place] [facility] [address] [id number] [place] [address] May, [facility] [place] [facility] [address] [id number], [place] [address] Apr, [facility] [address] [facility] [id number] [id number] Mar, [facility] [address] [id number], [place] [address] Feb, [facility] [address] [id number], [place] [address] Feb, [facility] [id number], [place] [address] Jan, [facility] [id number], [place] [address] Jan, [facility] [id number], [place] [address] November, [facility] [id number], [place] [address] November, [facility] [address] [id number], [place] [address] Oct, [facility] [address] [id number], [place] [address] Oct, [facility] [address] [facility] [id number] [id number] November, [facility] [address] [id number] [address] May, [facility] [address] [id number], [place] [address] Feb, IMMUNIZATIONS No Known Immunizations SOCIAL HISTORY Never Assessed REASON FOR VISIT med PLAN OF CARE VITAL SIGNS MEDICATIONS Unknown [...] anxiety, depression Medical History CT abdomen at [facility] 3-1-17 shows a ventral hernia and fatty liver disease Medical History Pt no-showed colonoscopy Medical History no showed mammogram Surgical History tonsillectomy Surgical History appendectomy 03/2011 Surgical History hysterectomy, total with bilateral salpingo-oophorectomy (BSO) 03/2011 Surgical History large abdominal tumor/uterus removed 2010 Hospitalization History past surgeries
--- OUTSIDE RECORDS SUMMARY | 2019-02-08 10:42 | XMS REPORT ---
Author Author WILDA PATEL Organization [employer] Address Unknown Phone Unavailable Care Team Providers Care [employer] Name Role Phone WILDA PATEL CP Unavailable Allergies No Known Allergies Problems No Known Problems Medications Medication Code System Code Instructions Start Date End Date Status Dosage Remeron [facility] [address]-17 30 MG Orally Once a day take 1 tablet by Oral route before bedtime 1 time per day Results No Known Results Summary Purpose [employer] Submission
--- OUTSIDE RECORDS SUMMARY | 2019-02-08 10:42 | XMS REPORT ---
Author Author WILDA PATEL [facility] Address [address] [place] [address] Care Team Providers Care Supervisory Historian Name Role Phone WILDA PATEL Unavailable PROBLEMS Type Condition ICD9-CM Code QQE35-CE Code Onset Dates Condition Status SNOMED Code Problem Gynecologic exam normal Z01.419 Active 525361044 Problem Breast cancer screening Z12.39 Active 404147317 Problem Weight loss R63.4 Active 781771029 Problem Lumbago with sciatica, right side M54.41 Active 254351046353721 Problem High risk medication use Z79.899 Active 599455608 Problem Lumbago with sciatica, left side M54.42 Active 459247674 Problem Heartburn R12 Active 26851022 Problem Emotional lability R45.86 Active 80020419 Problem Mixed hyperlipidemia E78.2 Active 646368752 Problem Colon cancer screening Z12.11 Active 962976940 Problem Other chronic pain G89.29 Active 81546690 Problem Colonoscopy refused Z53.20 Active 317279860 Problem Fatty liver disease, nonalcoholic K76.0 Active 189512878 Problem Hyperlipidemia E78.5 Active 95270359 Problem Pulmonary emphysema, unspecified emphysema type J43.9 Active 76424115 Problem Essential hypertension with goal blood pressure less than 130\/80 I10 Active 17012046 Problem Elevated serum GGT level R74.8 Active 041376829 Problem 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 Active 974780591 Problem Psoriasis L40.9 Active 3433803 Problem Metabolic syndrome X E88.81 Active 929201862 Problem Psoriasis vulgaris L40.0 Active 375743951 Problem Dysthymia F34.1 Active 15318714 ALLERGIES No Information ENCOUNTERS Encounter Location Date Diagnosis [facility] [address] [id number] [place] [id number] Sep, [facility] [address] [id number] [place] [id number] Aug, [facility] [address] [id number] [place] [id number] Aug, [facility] [address] [id number] [place] [address] Jul, [facility] [address] [id number][place] [id number] Jun, [facility] [address] [id number][place] [address] Jun, Hematuria, unspecified type R31.[address] [facility] [address] [id number][place] [id number] May, Lumbago with sciatica, left side M54.42 and Hematuria, unspecified type R31.[address] [facility] [address] [id number], [place] 396644[address] May, Hematuria, unspecified type R31.[address] [facility] [address] [id number], [place] [address]292937 Apr, High risk medication use Z79.899 ; Lumbago with sciatica, left side M54.42 ; Lumbago with sciatica, right side M54.41 ; Other chronic pain G89.29 ; Emotional lability R45.86 and Colonoscopy refused Z53.[address] [facility] [address] [id number][place] [address] Feb, [facility] [address] [id number][place] [id number] Feb, [facility] [address] [facility] [id number], [place] [address] Jan, [facility] [address] [id number][place] [address] Jan, Psoriasis vulgaris L40.[address] [facility] [address] [id number], [place] [address]265668 Jan, High risk medication use Z79.[address] [facility] [address] [id number] [place] [address] Dec, Psoriasis vulgaris L40.[address] [facility] [address] [id number] [place] [address] Oct, Mixed hyperlipidemia E78.2 and High risk medication use Z79.[address] [facility] [address] [id number], [place] [address]4087[address] Oct, [facility] [address] [id number], [place] [address] Oct, [facility] [address] [id number], [place] [address]56293251 Oct, Hyperlipidemia E78.5 and Weight loss R63.[address] [facility] [address] [id number], [place] [address]30816266 Oct, Gynecologic exam normal Z01.419 ; Breast cancer screening Z12.39 ; Weight loss R63.4 and Colon cancer screening Z12.[address] [facility] [address] [id number], [place] [address] Jul, [facility] [address] [id number], [place] [address]87[address] Jul, High risk medication use Z79.[address] [facility] [address] [id number], [place] [address]88110500 Jul, Metabolic syndrome X E88.81 ; Elevated serum GGT level R74.8 ; Dysthymia F34.1 and 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 [facility] [address] [id number], [place] 488[address] Jun, [facility] [address] [id number], [place] 65[address] May, [facility] [address] [id number], [place] [address] May, [facility] [address] [id number] [place] [address] May, High risk medication use Z79.[address] [facility] [address] [id number] [place] [id number] May, [facility] [address] [id number] [place] [address] May, Psoriasis vulgaris L40.0 and 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.[address] [facility] [address] [id number] [place] [id number] Mar, Hyperlipidemia E78.[address] [facility] [address] [id number] [place] [address] Mar, [facility] [address] [id number] [place] [id number] Mar, [facility] [address] [id number] [place] [address] Mar, Fatty liver disease, nonalcoholic K76.0 and Hyperlipidemia E78.[address] [facility] [address] [id number] [place] [address] Mar, [facility] [address] [id number], [place] 44[address]09154 Mar, Fatty liver disease, nonalcoholic K76.0 ; Psoriasis L40.9 and Hyperlipidemia E78.[address] [facility] [address] [id number], [place] [address]108364[address] Mar, [facility] [address] [facility] [id number][place] [address] Feb, [facility] [address] [id number] [place] [address] Feb, [facility] [address] [id number] [place] [address] Jan, [facility] [address] [id number] [place] [id number] Dec, [facility] [address] [id number], [place] [address]22843328 Dec, [facility] [address] [id number], [place] [address] November, [facility] [address] [id number], [place] [address]368[address] November, [facility] [address] [id number], [place] [address] Oct, [facility] [address] [id number][place] [address] Oct, Fatty liver disease, nonalcoholic K76.0 and Encounter for immunization Z23 [facility] [address] [id number], [place] [address] Oct, [facility] [address] [id number], [place] [address] Sep, Fatty liver disease, nonalcoholic K76.0 [facility] [address] [id number], [place] 836851807 Sep, Fatty liver disease, nonalcoholic K76.0 ; High risk medication use Z79.899 ; Emotional lability R45.86 ; Hyperlipidemia E78.5 and Essential hypertension with goal blood pressure less than 130\/80 I10 [facility] [address] [id number], [place] [address] Sep, [facility] [address] [id number], [place] 336840013 Aug, Mixed hyperlipidemia E78.2 and Heartburn R12 [facility] [address] [id number], [place] [address]194601[address] Aug, High risk medication use Z79.899 ; Emotional lability R45.86 ; Pulmonary emphysema, unspecified emphysema type J43.9 and Heartburn R12 [facility] [address] [id number], [place] 925527196 Jul, [facility] [address] [id number], [place] [id number] Jul, [facility] [address] [place] [address] AVE [id number], [place] 381897306 Jun, [facility] [place] [address] AVE [id number], [place] [address]66317936 May, Right upper quadrant abdominal pain R10.11 and Fatty liver K76.0 [facility] [place] [address] AVE [id number], [place] 078937345 Apr, Elevated AFP R77.2 ; Fatty liver K76.0 ; Unspecified cirrhosis of liver K74.60 ; High risk medication use Z79.899 ; Anhedonia R45.84 and Psoriasis L40.9 [facility] [address] [place] [address] AV [id number], [place] [id number] Apr, [facility] [place] [address] [id number], [place] 307390730 Apr, Elevated liver enzymes R74.8 [facility] [address] [id number], [place] [address]47[address]25[address] Apr, Abdominal pain, left lower quadrant R10.32 ; Mixed hyperlipidemia E78.2 and Hyperlipidemia 272.4 [facility] [address] [id number], [place] 405808300 Apr, Encounter for routine gynecological examination Z01.419 and Breast cancer screening Z12.39 [facility] [address] [place] [address] AVE [id number], [place] 131151799 Apr, Abdominal pain, left lower quadrant R10.32 ; Mixed hyperlipidemia E78.2 and Lumbago M54.5 [facility] [address] [place] [address] AVE [id number], [place] 349488202 Mar, Psoriasis 696.1 ; Hyperlipidemia 272.4 and Chronic pain 338.29 [facility] [address] [place] [address] AVE [id number], [place] 015440997 Mar, [facility] [address] [place] [address] AVE [id number], [place] [id number] Mar, [facility] [address] [id number] [place] 937[address] Mar, Rash and nonspecific skin eruption 782.1 [facility] [address] [id number] [place] 2306[address]13 Feb, Dermatitis 692.9 and Thoracic or lumbosacral neuritis or radiculitis, unspecified 724.4 [facility] [address] [id number] [place] 416[address] Feb, Dermatitis 692.9 and Follow-up examination V67.9 [facility] [address] [id number] [place] [address] Jan, [facility] [address] [id number], [place] [id number] Jan, Allergic dermatitis 692.9 [facility] [address] [id number], [place] 803074748 Jan, Rash and nonspecific skin eruption 782.1 [facility] [address] [id number], [place] [id number] Jan, [facility] [address] [id number], [place] 916197144 Jan, Dermatitis 692.9 and Environmental allergies V15.09 [facility] [address] [id number] [place] 865[address]3875 Dec, [facility] [address] [id number] [place] 500[address]450[address] Dec, [facility] [address] [id number] [place] 928915604 Dec, [facility] [address] [id number], [place] 789797342 November, [facility] [address] [id number], [place] 814822265 November, Muscle spasm 728.85 [facility] [place] [facility] [address] [id number] [place] [address] 14 Oct, 2014 [facility] [place] [facility] [address] [id number] [place] [address] 13 Oct, 2014 [facility] [place] [facility] [address] [id number] [place] [address] 23 Sep, 2014 [facility] [place] [facility] [address] [id number] [place] [address] 23 Sep, 2014 [facility] [place] [facility] [address] [id number] [place] [address] 20 Sep, 2014 [facility] [place] [facility] [address] [id number] [place] [address] 20 Sep, 2014 [facility] [place] [facility] [address] [id number] [place] [address] 19 Sep, 2014 [facility] [place] [facility] [address] [id number] [place] [address] 19 Sep, 2014 [facility] [place] [facility] [address] [id number] [place] [address] 16 Sep, 2014 [facility] [place] [facility] [address] [id number] [place] [address] 16 Sep, 2014 [facility] [place] [facility] [address] [id number] [place] [address] Aug, [facility] [place] [facility] [address] [id number] [place] [address] Aug, [facility] [place] [facility] [address] [id number] [place] [address] 15 Jul, 2014 [facility] [place] [facility] [address] [id number] [place] [address] 15 Jul, 2014 [facility] [place] [facility] [address] [id number] [place] [address] 13 Jul, 2014 [facility] [place] [facility] [address] [id number] [place] [address] Jul, [facility] [place] [facility] [address] [id number] [place] [address] Jul, [facility] [place] [facility] [address] [id number] [place] [address] Jul, [facility] [place] [facility] [address] [id number] [place] [address] Jun, [facility] [place] [facility] [address] [id number] [place] [address] Jun, [facility] [place] [facility] [address] [id number] [place] [address] Jun, [facility] [place] [facility] [address] [id number] [place] [address] Jun, [facility] [place] [facility] [address] [id number] [place] [address] Jun, [facility] [place] [facility] [address] [id number] [place] [address] Jun, [facility] [place] [facility] [address] [id number] [place] [address] Jun, [facility] [place] [facility] [address] [id number] [place] [address] Jun, [facility] [place] [facility] [address] [id number] [place] [address] May, [facility] [place] [facility] [address] [id number] [place] [address] May, [facility] [place] [facility] [address] [id number] [place] [address] May, [facility] [place] [facility] [address] [id number] [place] [address] May, [facility] [place] [facility] [address] [id number] [place] [address] May, [facility] [place] [facility] [address] [id number] [place] [address] Apr, [facility] [place] [facility] [address] [id number] [place] [address] Apr, [facility] [place] [facility] [address] [id number] [place] [address] Apr, [facility] [place] [facility] [address] [id number] [place] [address] Apr, [facility] [place] [facility] [address] [id number] [place] [address] Apr, [facility] [place] [facility] [address] [id number] [place] [address] Apr, [facility] [place] [facility] [address] [id number] [place] [address] Apr, [facility] [place] [facility] [address] [id number] [place] [address] Apr, [facility] [place] [facility] [address] [id number] [place] [address] Apr, [facility] [place] [facility] [address] [id number] [place] [address] 20 Apr, 2014 [facility] [place] [facility] [address] [id number] [place] [address] 17 Apr, 2014 [facility] [place] [facility] [address] [id number] [place] [address] 17 Apr, 2014 [facility] [place] [facility] [address] [id number] [place] [address] 16 Apr, 2014 [facility] [place] [facility] [address] [id number] [place] [address] 16 Apr, 2014 [facility] [place] [facility] [address] [id number] [place] [address] 15 Apr, 2014 [facility] [place] [facility] [address] [id number] [place] [address] 15 Apr, 2014 [facility] [place] [facility] [address] [id number] [place] [address] Apr, [facility] [place] [facility] [address] [id number] [place] [address] Apr, [facility] [place] [facility] [address] [id number] [place] [address] Apr, [facility] [place] [facility] [address] [id number] [place] [address] Apr, [facility] [place] [facility] [address] [id number] [place] [address] Apr, [facility] [place] [facility] [address] [id number] [place] [address] Apr, [facility] [place] [facility] [address] [id number] [place] [address] Apr, [facility] [place] [facility] [address] [id number] [place] [address] Apr, [facility] [place] [facility] [address] [id number] [place] [address] Apr, [facility] [place] [facility] [address] [id number] [place] [address] Apr, [facility] [place] [facility] [address] [id number], [place] [address] Mar, [facility] [place] [facility] [address] [id number], [place] [address] Mar, [facility] [place] [facility] [address] [id number] [place] [address] Feb, [facility] [place] [facility] [address] [id number] [place] [address] Feb, [facility] [place] [facility] [address] [id number], [place] [address] Feb, [facility] [place] [facility] [address] [id number], [place] [address] Feb, [facility] [place] [facility] [address] [id number] [place] [address] Jan, [facility] [place] [facility] [address] [id number] [place] [address] Jan, [facility] [place] [facility] [address] [id number] [place] [address] Jan, [facility] [place] [facility] [address] [id number] [place] [address] Jan, [facility] [place] [facility] [address] [id number] [place] [address] Jan, [facility] [place] [facility] [address] [id number] [place] [address] Jan, [facility] [place] [facility] [address] [id number] [place] [address] Jan, [facility] [place] [facility] [address] [id number] [place] [address] Jan, [facility] [place] [facility] [address] [id number] [place] [address] Jan, [facility] [place] [facility] [address] [id number] [place] [address] Jan, [facility] [place] [facility] [address] [id number] [place] [address] Jan, [facility] [place] [facility] [address] [id number] [place] [address] Dec, [facility] [place] [facility] [address] [id number] [place] [address] Dec, [facility] [place] [facility] [address] [id number] [place] [address] Dec, [facility] [place] [facility] [address] [id number] [place] [address] Dec, [facility] [place] [facility] [address] [id number] [place] [address] November, [facility] [place] [facility] [address] [id number] [place] [address] November, [facility] [place] [facility] [address] [id number] [place] [address] November, [facility] [place] [facility] [address] [id number] [place] [address] November, [facility] [place] [facility] [address] [id number] [place] [address] November, [facility] [place] [facility] [address] [id number] [place] [address] November, [facility] [place] [facility] [address] [id number] [place] [address] November, [facility] [place] [facility] [address] [id number] [place] [address] November, [facility] [place] [facility] [address] [id number] [place] [address] November, [facility] [place] [facility] [address] [id number] [place] [address] November, [facility] [place] [facility] [address] [id number] [place] [address] November, [facility] [place] [facility] [address] [id number] [place] [address] Oct, [facility] [place] [facility] [address] [id number] [place] [address] Oct, [facility] [place] [facility] [address] [id number] [place] [address] Oct, [facility] [place] [facility] [address] [id number] [place] [address] Oct, [facility] [place] [facility] [address] [id number] [place] [address] 15 Oct, 2013 [facility] [place] [facility] [address] [id number] [place] [address] 15 Oct, 2013 [facility] [place] [facility] [address] [id number] [place] [address] 28 Sep, 2013 [facility] [place] [facility] [address] [id number] [place] [address] Sep, [facility] [place] [facility] [address] [id number] [place] [address] Sep, [facility] [place] [facility] [address] [id number] [place] [address] Sep, [facility] [place] [facility] [address] [id number] [place] [address] Sep, [facility] [place] [facility] [address] [id number] [place] [address] Sep, [facility] [place] [facility] [address] [id number] [place] [address] Sep, [facility] [place] [facility] [address] [id number] [place] [address] Sep, [facility] [place] [facility] [address] [id number] [place] [address] Sep, [facility] [place] [facility] [address] [id number] [place] [address] Sep, [facility] [place] [facility] [address] [id number], [place] [address] Sep, [facility] [place] [facility] [address] [id number] [place] [address] Aug, [facility] [place] [facility] [address] [id number] [place] [address] Aug, [facility] [place] [facility] [address] [facility] [id number] [place] [address] Aug, [facility] [place] [facility] [address] [id number] [place] [address] Aug, [facility] [address] [id number] [place] [address] Jul, [facility] [place] [facility] [address] [id number] [place] [address] Jul, [facility] [address] [id number] [place] [address] Jul, [facility] [address] [id number] [place] [address] Jul, [facility] [address] [id number] [place] [address] Jul, [facility] [address] [id number] [place] [address] Jul, [facility] [address] [id number] [place] [address] Jul, [facility] [address] [id number] [place] [address] Jul, [facility] [address] [id number] [place] [address] Jul, [facility] [address] [id number] [place] [address] Jul, [facility] [address] [id number] [place] [address] Jul, [facility] [address] [id number] [place] [address] Jul, [facility] [place] [facility] [address] [id number] [place] [address] Jul, [facility] [place] [facility] [address] [id number] [place] [address] Jun, [facility] [address] [id number] [place] [address] Jun, [facility] [address] [id number] [place] [address] Jun, [facility] [place] [facility] [address] [id number] [place] [address] Jun, [facility] [place] [facility] [address] [id number] [place] [address] Jun, [facility] [place] [facility] [address] [id number] [place] [address] Jun, [facility] [address] [id number] [place] [address] Jun, [facility] [place] [facility] [address] [id number] [place] [address] Jun, [facility] [place] [facility] [address] [id number] [place] [address] Jun, [facility] [place] [facility] [address] [id number] [place] [address] Jun, [facility] [place] [facility] [address] [id number] [place] [address] Jun, [facility] [place] [facility] [address] [id number] [place] [address] Jun, [facility] [place] [facility] [address] [id number], [place] [address] Jun, [facility] [place] [facility] [address] [id number], [place] [address] Jun, [facility] [place] [facility] [address] [id number] [place] [id number] Jun, [facility] [place] [facility] [address] [id number] [place] [address] Jun, [facility] [place] [facility] [address] [id number], [place] [address] Jun, [facility] [place] [facility] [address] [id number], [place] [address] Jun, [facility] [address] [id number] [place] [address] Jun, [facility] [address] [id number], [place] [address] Jun, [facility] [address] [id number] [place] [address] Jun, [facility] [place] [facility] [address] [id number], [place] [address] Jun, [facility] [address] [id number] [place] [address] Jun, [facility] [place] [facility] [address] [id number] [place] [address] May, [facility] [address] [id number], [place] [address] May, [facility] [address] [id number] [place] [address] Apr, [facility] [address] [id number][place] [id number] Mar, [facility] [address] [id number], [place] [address] Feb, [facility] [address] [id number], [place] [address] Feb, [facility] [place] [facility] [address] [id number], [place] [address] Jan, [facility] [place] [facility] [address] [id number] [place] [address] Jan, [facility] [place] [facility] [address] [facility] [id number], [place] [address] November, [facility] [place] [facility] [address] [id number], [place] [address] November, [facility] [place] [facility] [address] [facility] [id number] [place] [address] Oct, [facility] [address] [facility] [id number] [place] [address] Oct, [facility] [address] [facility] [id number] [place] [id number] November, [facility] [address] [facility] [id number] [place] [address] May, [facility] [address] [facility] [id number] [place] [address] Feb, IMMUNIZATIONS No Known Immunizations SOCIAL HISTORY Never Assessed REASON FOR VISIT med refill omeprazole PLAN OF CARE VITAL SIGNS MEDICATIONS Medication Instructions Dosage Frequency Start Date End Date Duration Status Omeprazole 20 MG Orally Once a day before a meal 1 capsule Active RESULTS No Results PROCEDURES No Known procedures INSTRUCTIONS MEDICATIONS ADMINISTERED No Known Medications MEDICAL (GENERAL) HISTORY Type Description Date Medical History hypertension Medical History gastroesophageal reflux disease (GERD) Medical History hyperlipidemia Medical History obesity Medical History chronic pain Medical History psoriasis Medical History abnormal liver enzymes, fatty liver disease Medical History abdominal tumor Medical History anxiety, depression Medical History [facility] abdomen at [facility] 09-14-16 shows a ventral hernia and fatty liver disease Medical History Pt no-showed colonoscopy Medical History no showed mammogram Surgical History tonsillectomy Surgical History appendectomy 03/2011 Surgical History hysterectomy, total with bilateral salpingo-oophorectomy (BSO) 03/2011 Surgical History large abdominal tumor/uterus removed 2010 Hospitalization History past surgeries
--- OUTSIDE RECORDS SUMMARY | 2019-02-08 10:42 | XMS REPORT ---
Author Author JORGE WILDA [facility] Address [address] [place] [address] Care Team Providers Care Senior Software Qa Engineer Name Role Phone WILDA PATEL Unavailable PROBLEMS Type Condition ICD9-CM Code LCS70-KJ Code Onset Dates Condition Status SNOMED Code Problem Emotional lability R45.86 Active 16626839 Problem Heartburn R12 Active 58261227 Problem High risk medication use Z79.899 Active 274894949 Problem Colon cancer screening Z12.11 Active 241563071 Problem Pulmonary emphysema, unspecified emphysema type J43.9 Active 43804239 Problem Mixed hyperlipidemia E78.2 Active 311545670 Problem Fatty liver disease, nonalcoholic K76.0 Active 011358651 Problem Colonoscopy refused Z53.20 Active 991755028 Problem Lumbago with sciatica, left side M54.42 Active 161045942 Problem Other chronic pain G89.29 Active 63514460 Problem Serum calcium elevated E83.52 Active 17421431 Problem Urinary frequency R35.0 Active 070441587 Problem Psoriasis L40.9 Active 1960824 Problem Hyperlipidemia E78.5 Active 65262318 Problem Essential hypertension with goal blood pressure less than 130\/80 I10 Active 28178915 Problem Dental caries K02.9 Active 64548672 Problem Lumbago with sciatica, right side M54.41 Active 292738621306909 Problem Substance abuse F19.10 Active 35834865 Problem Hematuria, unspecified type R31.9 Active 20893759 Problem Metabolic syndrome X E88.81 Active 164078834 Problem Elevated serum GGT level R74.8 Active 126201239 Problem Psoriasis vulgaris L40.0 Active 703762951 Problem Dysthymia F34.1 Active 63974617 Problem Breast cancer screening Z12.39 Active 346905627 Problem Weight loss R63.4 Active 386803479 Problem 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 Active 040040919 Problem Gynecologic exam normal Z01.419 Active 022946539 ALLERGIES No Information ENCOUNTERS Encounter Location Date Diagnosis [facility] [address] [id number], [place] [id number] November, Serum calcium elevated E83.52 and Elevated serum GGT level R74.8 [facility] [address] [id number], [place] [id number] November, Fatty liver disease, nonalcoholic K76.[address] [facility] [address] [id number][place] [address] November, High risk medication use Z79.899 ; Hematuria, unspecified type R31.9 ; Dental caries K02.9 ; Urinary frequency R35.0 and Substance abuse F19.10 [facility] [address] [id number], [place] [address] Sep, [facility] [address] [id number], [place] 379[address]0476 Aug, [facility] [address] [id number], [place] [id number] Aug, [facility] [address] [id number], [place] [address] Jul, [facility] [address] [id number], [place] 2[address]007[address] Jun, [facility] [address] [id number], [place] 564[address]5813 Jun, Hematuria, unspecified type R31.9 [facility] [address] [id number], [place] [address]87[address]48[address] May, Lumbago with sciatica, left side M54.42 and Hematuria, unspecified type R31.9 [facility] [address] [id number], [place] 601236676 May, Hematuria, unspecified type R31.9 [facility] [address] [id number], [place] [id number] Apr, High risk medication use Z79.899 ; Lumbago with sciatica, left side M54.42 ; Lumbago with sciatica, right side M54.41 ; Other chronic pain G89.29 ; Emotional lability R45.86 and Colonoscopy refused Z53.[address] [facility] [address] [id number], [place] [id number] Feb, [facility] [address] [id number], [place] [address]40[address] Feb, [facility] [place] [address] [id number] [address] Jan, [facility] [address] [id number], [place] [address]78[address] Jan, Psoriasis vulgaris L40.[address] [facility] [address] [id number], [place] 79[address]316[address] Jan, High risk medication use Z79.[address] [facility] [address] [id number], [place] 703273158 Dec, Psoriasis vulgaris L40.0 [facility] [address] [id number], [place] [id number] Oct, Mixed hyperlipidemia E78.2 and High risk medication use Z79.[address] [facility] [address] [id number], [place] 614334985 Oct, [facility] [address] [id number], [place] 90[address]04[address] Oct, [facility] [address] [id number], [place] 433527236 Oct, Hyperlipidemia E78.5 and Weight loss R63.[address] [facility] [address] [id number], [place] 761771455 Oct, Gynecologic exam normal Z01.419 ; Breast cancer screening Z12.39 ; Weight loss R63.4 and Colon cancer screening Z12.[address] [facility] [address] [id number], [place] 69[address]10698 Jul, [facility] [address] [id number] [place] [address] Jul, High risk medication use Z79.[address] [facility] [address] [id number] [place] [address] Jul, Metabolic syndrome X E88.81 ; Elevated serum GGT level R74.8 ; Dysthymia F34.1 and 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 [facility] [address] [id number] [place] [id number] Jun, [facility] [address] [id number] [place] [id number] May, [facility] [address] [id number], [place] [address]63802878 May, [facility] [address] [id number], [place] 123818145 May, High risk medication use Z79.[address] [facility] [address] [id number], [place] 555485017 May, [facility] [address] [id number], [place] 433477060 May, Psoriasis vulgaris L40.0 and Other fpc (current) drug therapy Z79.[address] [facility] [address] [id number], [place] 729018749 Mar, Hyperlipidemia E78.[address] [facility] [address] [id number] [place] 8[address] Mar, [facility] [address] [id number], [place] 676423580 Mar, [facility] [address] [id number], [place] 073425462 Mar, Fatty liver disease, nonalcoholic K76.0 and Hyperlipidemia E78.[address] [facility] [address] [id number], [place] 097524155 Mar, [facility] [address] [id number] [place] 7974[address] Mar, Fatty liver disease, nonalcoholic K76.0 ; Psoriasis L40.9 and Hyperlipidemia E78.[address] [facility] [address] [id number], [place] 795061087 Mar, [facility] [address] [facility] [id number][place] [id number] Feb, [facility] [address] [id number], [place] 620751774 Feb, [facility] [address] [id number], [place] 887986505 Jan, [facility] [address] [id number], [place] [id number] Dec, [facility] [address] [id number], [place] 005280127 Dec, [facility] [place] [address] [facility] [facility] [id number] [address] November, [facility] [address] [id number], [place] [id number] November, [facility] [address] [id number], [place] 593302000 Oct, [facility] [address] [id number], [place] 90[address]2563 Oct, Fatty liver disease, nonalcoholic K76.0 and Encounter for immunization Z23 [facility] [address] [facility] [facility] [id number] [address] Oct, [facility] [address] [id number], [place] 771473826 Sep, Fatty liver disease, nonalcoholic K76.[address] [facility] [address] [id number], [place] 317862304 Sep, Fatty liver disease, nonalcoholic K76.0 ; High risk medication use Z79.899 ; Emotional lability R45.86 ; Hyperlipidemia E78.5 and Essential hypertension with goal blood pressure less than 130\/80 I10 [facility] [place] [address] [facility] [id number] [place] [address] Sep, [facility] [address] [id number], [place] 565403056 Aug, Mixed hyperlipidemia E78.2 and Heartburn R12 [facility] [address] [id number], [place] [id number] Aug, High risk medication use Z79.899 ; Emotional lability R45.86 ; Pulmonary emphysema, unspecified emphysema type J43.9 and Heartburn R12 [facility] [address] [id number], [place] [id number] Jul, [facility] [address] [id number], [place] [id number] Jul, [facility] [place] [address] [id number], [place] 947145110 Jun, [facility] [address] [id number], [place] 477050040 May, Right upper quadrant abdominal pain R10.11 and Fatty liver K76.0 [facility] [address] [id number], [place] 601421153 Apr, Elevated AFP R77.2 ; Fatty liver K76.0 ; Unspecified cirrhosis of liver K74.60 ; High risk medication use Z79.899 ; Anhedonia R45.84 and Psoriasis L40.9 [facility] [address] [id number], [place] [id number] Apr, [facility] [address] [id number], [place] 367442990 Apr, Elevated liver enzymes R74.8 [facility] [address] [id number], [place] 906223767 Apr, Abdominal pain, left lower quadrant R10.32 ; Mixed hyperlipidemia E78.2 and Hyperlipidemia 272.4 [facility] [address] [id number], [place] 530543810 09 Apr, 2015 Encounter for routine gynecological examination Z01.419 and Breast cancer screening Z12.[address] [facility] [address] [id number], [place] [id number] 06 Apr, 2015 Abdominal pain, left lower quadrant R10.32 ; Mixed hyperlipidemia E78.2 and Lumbago M54.5 [facility] [address] [id number], [place] [id number] 17 Mar, 2015 Psoriasis 696.1 ; Hyperlipidemia 272.4 and Chronic pain 338.29 [facility] [address] [id number], [place] 890005066 Mar, [facility] [address] [id number], [place] 307685535 Mar, [facility] [address] [id number], [place] 683489115 Mar, Rash and nonspecific skin eruption 782.1 [facility] [address] [id number], [place] [id number] Feb, Dermatitis 692.9 and Thoracic or lumbosacral neuritis or radiculitis, unspecified 724.4 [facility] [address] [id number], [place] 570906083 Feb, Dermatitis 692.9 and Follow-up examination V67.9 [facility] [address] [id number], [place] 824074059 Jan, [facility] [address] [id number], [place] 018191125 Jan, Allergic dermatitis 692.9 [facility] [address] [id number], [place] [id number] Jan, Rash and nonspecific skin eruption 782.1 [facility] [address] [id number], [place] [id number] Jan, [facility] [address] [id number], [place] 249157325 Jan, Dermatitis 692.9 and Environmental allergies V15.[address] [facility] [address] [id number], [place] 317638095 Dec, [facility] [address] [id number], [place] 999351811 Dec, [facility] [address] [id number], [place] [id number] Dec, [facility] [address] [id number], [place] [id number] November, [facility] [address] [id number], [place] [id number] November, Muscle spasm 728.85 [facility] [id number] [address] Oct, [facility] [address] [place] [address] Oct, [facility] [id number] [address] Sep, [facility] [address] [address] Sep, [facility] [id number] [address] Sep, [facility] [address] [address] Sep, [facility] [id number] [place] [address] Sep, [facility] [address] [address] Sep, [facility] [id number] [address] 16 Sep, 2014 [facility] [place] [facility] [address] [id number] [place] [address] 16 Sep, 2014 [facility] [place] [facility] [address] [id number] [place] [address] Aug, [facility] [place] [facility] [address] [id number] [place] [address] Aug, [facility] [place] [facility] [address] [id number] [place] [address] Jul, [facility] [place] [facility] [address] [id number] [place] [address] Jul, [facility] [place] [facility] [address] [id number] [place] [address] Jul, [facility] [place] [facility] [address] [id number] [place] [address] Jul, [facility] [place] [facility] [address] [id number] [place] [address] Jul, [facility] [place] [facility] [address] [id number] [place] [address] Jul, [facility] [place] [facility] [address] [id number] [place] [address] Jun, [facility] [place] [facility] [address] [id number] [place] [address] Jun, [facility] [place] [facility] [address] [id number] [place] [address] Jun, [facility] [place] [facility] [address] [id number] [place] [address] Jun, [facility] [place] [facility] [address] [id number] [place] [address] Jun, [facility] [place] [facility] [address] [id number] [place] [address] Jun, [facility] [place] [facility] [address] [id number] [place] [address] Jun, [facility] [place] [facility] [address] [id number] [place] [address] Jun, [facility] [place] [facility] [address] [id number] [place] [address] May, [facility] [place] [facility] [address] [id number] [place] [address] May, [facility] [place] [facility] [address] [id number] [place] [address] May, [facility] [place] [facility] [address] [id number] [place] [address] May, [facility] [place] [facility] [address] [id number] [place] [address] May, [facility] [place] [facility] [address] [id number] [place] [address] Apr, [facility] [place] [facility] [address] [id number] [place] [address] Apr, [facility] [place] [facility] [address] [id number] [place] [address] Apr, [facility] [place] [facility] [address] [id number] [place] [address] Apr, [facility] [place] [facility] [address] [id number] [place] [address] Apr, [facility] [place] [facility] [address] [id number] [place] [address] Apr, [facility] [place] [facility] [address] [id number] [place] [address] Apr, [facility] [place] [facility] [address] [id number] [place] [address] Apr, [facility] [place] [facility] [address] [id number] [place] [address] Apr, [facility] [place] [facility] [address] [id number] [place] [address] 20 Apr, 2013 [facility] [place] [facility] [address] [id number] [place] [address] 17 Apr, 2013 [facility] [place] [facility] [address] [id number] [place] [address] 17 Apr, 2013 [facility] [place] [facility] [address] [id number] [place] [address] 16 Apr, 2013 [facility] [place] [facility] [address] [id number] [place] [address] 16 Apr, 2013 [facility] [place] [facility] [address] [id number] [place] [address] 15 Apr, 2014 [facility] [place] [facility] [address] [id number] [place] [address] 15 Apr, 2014 [facility] [place] [facility] [address] [id number] [place] [address] 14 Apr, 2014 [facility] [place] [facility] [address] [id number] [place] [address] 14 Apr, 2014 [facility] [place] [facility] [address] [id number] [place] [address] 13 Apr, 2014 [facility] [place] [facility] [address] [id number] [place] [address] 13 Apr, 2014 [facility] [place] [facility] [address] [id number] [address] 06 Apr, 2013 [facility] [place] [facility] [address] [id number] [place] [address] 06 Apr, 2014 [facility] [place] [facility] [address] [id number] [place] [address] 05 Apr, 2014 [facility] [place] [facility] [address] [id number] [place] [address] 05 Apr, 2013 [facility] [place] [facility] [address] [id number] [address] Apr, [facility] [place] [facility] [address] [id number] [place] [address] Apr, [facility] [place] [facility] [address] [id number] [place] [address] Mar, [facility] [place] [facility] [address] [id number] [place] [address] Mar, [facility] [place] [facility] [address] [id number] [place] [address] Feb, [facility] [place] [facility] [address] [id number] [place] [address] Feb, [facility] [place] [facility] [address] [id number] [place] [address] Feb, [facility] [place] [facility] [address] [id number] [place] [address] Feb, [facility] [place] [facility] [address] [id number] [place] [address] Jan, [facility] [place] [facility] [address] [id number] [place] [address] Jan, [facility] [place] [facility] [address] [id number] [place] [address] Jan, [facility] [place] [facility] [address] [id number] [place] [address] Jan, [facility] [place] [facility] [address] [id number] [place] [address] Jan, [facility] [place] [facility] [address] [id number] [place] [address] Jan, [facility] [place] [facility] [address] [id number] [place] [address] Jan, [facility] [place] [facility] [address] [id number] [place] [address] Jan, [facility] [place] [facility] [address] [id number] [place] [address] Jan, [facility] [place] [facility] [address] [id number] [place] [address] Jan, [facility] [place] [facility] [address] [id number] [place] [address] Jan, [facility] [place] [facility] [address] [id number] [place] [address] Dec, [facility] [place] [facility] [address] [id number] [place] [address] Dec, [facility] [place] [facility] [address] [id number] [place] [address] Dec, [facility] [place] [facility] [address] [id number] [place] [address] Dec, [facility] [place] [facility] [address] [id number] [place] [address] November, [facility] [address] [id number] [place] [address] November, [facility] [place] [facility] [address] [id number] [place] [address] November, [facility] [address] [id number] [place] [address] November, [facility] [place] [facility] [address] [id number] [place] [address] November, [facility] [place] [facility] [address] [id number] [place] [address] November, [facility] [place] [facility] [address] [id number] [place] [address] November, [facility] [place] [facility] [address] [id number] [place] [address] November, [facility] [place] [facility] [address] [id number] [place] [address] November, [facility] [place] [facility] [address] [id number] [place] [address] November, [facility] [place] [facility] [address] [id number] [place] [address] November, [facility] [place] [facility] [address] [id number] [place] [address] Oct, [facility] [place] [facility] [address] [id number] [place] [address] Oct, [facility] [place] [facility] [address] [id number] [place] [address] Oct, [facility] [place] [facility] [address] [id number] [place] [address] Oct, [facility] [place] [facility] [address] [id number] [place] [address] Oct, [facility] [place] [facility] [address] [id number] [place] [address] Oct, [facility] [place] [facility] [address] [id number] [place] [address] Sep, [facility] [place] [facility] [address] [id number] [place] [address] Sep, [facility] [place] [facility] [address] [id number] [place] [address] Sep, [facility] [place] [facility] [address] [id number] [place] [address] Sep, [facility] [place] [facility] [address] [id number] [place] [address] Sep, [facility] [place] [facility] [address] [id number] [place] [address] Sep, [facility] [place] [facility] [address] [id number] [place] [address] Sep, [facility] [place] [facility] [address] [id number] [place] [address] Sep, [facility] [place] [facility] [address] [id number] [place] [address] Sep, [facility] [place] [facility] [address] [id number] [place] [address] Sep, [facility] [place] [facility] [address] [id number] [place] [address] Sep, [facility] [place] [facility] [address] [id number] [place] [address] Aug, [facility] [place] [facility] [address] [id number] [place] [address] Aug, [facility] [place] [facility] [address] [id number] [place] [address] Aug, [facility] [place] [facility] [address] [id number] [place] [address] Aug, [facility] [place] [facility] [address] [id number] [place] [address] Jul, [facility] [place] [facility] [address] [id number] [place] [address] Jul, [facility] [place] [facility] [address] [id number] [place] [address] Jul, [facility] [place] [facility] [address] [id number] [place] [address] Jul, [facility] [place] [facility] [address] [id number] [place] [address] Jul, [facility] [place] [facility] [address] [id number] [place] [address] Jul, [facility] [place] [facility] [address] [id number] [place] [address] Jul, [facility] [place] [facility] [address] [id number] [place] [address] Jul, [facility] [place] [facility] [address] [id number] [place] [address] Jul, [facility] [address] [id number] [place] [address] Jul[facility] [address] [id number] [place] [address] Jul, [facility] [address] [id number] [place] [address] Jul, [facility] [address] [id number] [place] [address] Jul, [facility] [address] [id number] [place] [address] Jun, [facility] [address] [id number] [place] [address] Jun, [facility] [address] [id number] [place] [address] Jun, [facility] [address] [id number] [place] [address] Jun, [facility] [address] [id number] [place] [address] Jun, [facility] [address] [id number] [place] [address] Jun, [facility] [address] [id number] [place] [address] Jun, [facility] [place] [facility] [address] [id number] [place] [address] Jun, [facility] [place] [facility] [address] [id number] [place] [address] Jun, [facility] [place] [facility] [address] [id number] [place] [address] Jun, [facility] [place] [facility] [address] [id number] [address] Jun, [facility] [address] [id number] [place] [address] Jun, [facility] [address] [id number] [place] [address] Jun, [facility] [address] [id number] [place] [address] Jun, [facility] [address] [id number] [place] [address] Jun, [facility] [address] [id number] [place] [address] Jun, [facility] [address] [id number] [place] [address] Jun, [facility] [address] [facility] [id number] [place] [address] Jun, [facility] [address] [id number] [place] [address] Jun, [facility] [id number] [address] Jun, [facility] [address] [id number] [address] Jun, [facility] [address] [id number] [address] Jun, [facility] [address] [id number] [address] Jun, [facility] [address] [id number] [address] May, [facility] [address] [facility] [id number] [address] May, [facility] [address] [facility] [id number] [place] [address] Apr, [facility] [address] [id number][place] [id number] Mar, [facility] [id number] [address] Feb, [facility] [id number] [address] Feb, [facility] [id number] [address] Jan, [facility] [id number] [address] Jan, [facility] [id number] [address] November, [facility] [id number] [address] November, [facility] [id number] [address] Oct, [facility] [id number] [address] Oct, [facility] [address] [id number] [id number] November, [facility] [id number] [address] May, [facility] [id number] [address] Feb, IMMUNIZATIONS No Known Immunizations SOCIAL HISTORY Never Assessed REASON FOR VISIT med refill PLAN OF CARE VITAL SIGNS MEDICATIONS Medication Instructions Dosage Frequency Start Date End Date Duration Status Celexa 40 mg Orally Once a day 1 tablet 24h Active RESULTS No Results PROCEDURES No Known procedures INSTRUCTIONS MEDICATIONS ADMINISTERED No Known Medications MEDICAL (GENERAL) HISTORY Type Description Date Medical History hypertension Medical History gastroesophageal reflux disease (GERD) Medical History hyperlipidemia Medical History obesity Medical History chronic pain Medical History psoriasis Medical History abnormal liver enzymes, fatty liver disease Medical History abdominal tumor Medical History anxiety, depression Medical History [facility] at [facility] 09-14-16 shows a ventral hernia and fatty liver disease Medical History Pt no-showed colonoscopy Medical History no showed mammogram Surgical History tonsillectomy Surgical History appendectomy 03/2011 Surgical History hysterectomy, total with bilateral salpingo-oophorectomy (BSO) 03/2011 Surgical History large abdominal tumor/uterus removed 2010 Hospitalization History past surgeries
--- OUTSIDE RECORDS SUMMARY | 2019-02-08 10:43 | XMS REPORT ---
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 Active 268841326 Problem Metabolic syndrome X E88.81 Active 255724635 Problem Mixed hyperlipidemia E78.2 Active 954018130 Problem Colon cancer screening Z12.11 Active 040253152 Problem Gynecologic exam normal Z01.419 Active 192565223 Problem Elevated serum GGT level R74.8 Active 150201133 Problem Weight loss R63.4 Active 169012474 Problem Breast cancer screening Z12.39 Active 251428944 Problem Emotional lability R45.86 Active 12252666 Problem Heartburn R12 Active 90888943 Problem High risk medication use Z79.899 Active 929359842 Problem Fatty liver disease, nonalcoholic K76.0 Active 730629317 Problem Hyperlipidemia E78.5 Active 92408031 Problem Pulmonary emphysema, unspecified emphysema type J43.9 Active 88108752 Problem Psoriasis L40.9 Active 3946048 Problem Essential hypertension with goal blood pressure less than 130\/80 I10 Active 83828464 Problem Psoriasis vulgaris L40.0 Active 450342638 ALLERGIES Unknown Allergies SOCIAL HISTORY No smoking Hx information available PLAN OF CARE VITAL SIGNS MEDICATIONS Unknown Medications RESULTS No Results PROCEDURES No Known procedures IMMUNIZATIONS No Known Immunizations
--- OUTSIDE RECORDS SUMMARY | 2019-02-08 10:43 | XMS REPORT ---
Author Author JORGE WILDA [facility] Address [address] [place] [address] Care Team Providers Care Technical Marketing Engineer Name Role Phone WILDA PATEL Unavailable PROBLEMS Type Condition ICD9-CM Code GVQ27-IP Code Onset Dates Condition Status SNOMED Code Problem Emotional lability R45.86 Active 80102839 Problem Heartburn R12 Active 99752844 Problem High risk medication use Z79.899 Active 376395864 Problem Colon cancer screening Z12.11 Active 862593199 Problem Pulmonary emphysema, unspecified emphysema type J43.9 Active 64462256 Problem Mixed hyperlipidemia E78.2 Active 844527772 Problem Fatty liver disease, nonalcoholic K76.0 Active 421422652 Problem Colonoscopy refused Z53.20 Active 558308856 Problem Lumbago with sciatica, left side M54.42 Active 667459260 Problem Other chronic pain G89.29 Active 26254497 Problem Serum calcium elevated E83.52 Active 38301948 Problem Urinary frequency R35.0 Active 593556010 Problem Psoriasis L40.9 Active 4868720 Problem Hyperlipidemia E78.5 Active 32799733 Problem Essential hypertension with goal blood pressure less than 130\/80 I10 Active 90694444 Problem Dental caries K02.9 Active 78461641 Problem Lumbago with sciatica, right side M54.41 Active 370852327155107 Problem Substance abuse F19.10 Active 33025816 Problem Hematuria, unspecified type R31.9 Active 57099118 Problem Metabolic syndrome X E88.81 Active 287372557 Problem Elevated serum GGT level R74.8 Active 890847717 Problem Psoriasis vulgaris L40.0 Active 317319710 Problem Dysthymia F34.1 Active 70894791 Problem Breast cancer screening Z12.39 Active 015618704 Problem Weight loss R63.4 Active 348902795 Problem 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 Active 841685510 Problem Gynecologic exam normal Z01.419 Active 852269601 ALLERGIES No Information ENCOUNTERS Encounter Location Date Diagnosis [facility] [address] [address] [id number] [id number] Jan, [facility] [address] [address] [id number][place] [address] November, Serum calcium elevated E83.52 and Elevated serum GGT level R74.8 [facility] [address] [id number], [place] [address]441933 November, Fatty liver disease, nonalcoholic K76.[address] [facility] [address] [id number][place] [address]87[address] November, High risk medication use Z79.899 ; Hematuria, unspecified type R31.9 ; Dental caries K02.9 ; Urinary frequency R35.0 and Substance abuse F19.10 [facility] [address] [id number][place] [id number] Sep, [facility] [address] [id number][place] [address] Aug, [facility] [address] [id number][place] [address] Aug, [facility] [address] [id number][place] [address]250[address] Jul, [facility] [address] [id number], [place] [address] Jun, [facility] [address] [id number][place] [id number] Jun, Hematuria, unspecified type R31.9 [facility] [address] [id number], [place] [id number] May, Lumbago with sciatica, left side M54.42 and Hematuria, unspecified type R31.9 [facility] [address] [id number], [place] [address] May, Hematuria, unspecified type R31.[address] [facility] [address] [id number][place] [address] Apr, High risk medication use Z79.899 ; Lumbago with sciatica, left side M54.42 ; Lumbago with sciatica, right side M54.41 ; Other chronic pain G89.29 ; Emotional lability R45.86 and Colonoscopy refused Z53.[address] [facility] [address] [id number], [place] [id number] Feb, [facility] [address] [id number], [place] [address] Feb, [facility] [address] [facility] [id number], [place] [address] Jan, [facility] [address] [id number][place] [id number] Jan, Psoriasis vulgaris L40.[address] [facility] [address] [id number], [place] 97[address]183 Jan, High risk medication use Z79.899 [facility] [address] [id number], [place] [address]28 Dec, Psoriasis vulgaris L40.0 [facility] [address] [id number], [place] 877839463 Oct, Mixed hyperlipidemia E78.2 and High risk medication use Z79.[address] [facility] [address] [id number], [place] [address] Oct, [facility] [address] [id number], [place] [address] Oct, [facility] [address] [id number], [place] 178[address]57 Oct, Hyperlipidemia E78.5 and Weight loss R63.[address] [facility] [address] [id number], [place] 96[address]230 Oct, Gynecologic exam normal Z01.419 ; Breast cancer screening Z12.39 ; Weight loss R63.4 and Colon cancer screening Z12.[address] [facility] [address] [id number] [place] [id number] Jul, [facility] [address] [id number], [place] 869536018 Jul, High risk medication use Z79.[address] [facility] [address] [id number], [place] 605549645 Jul, Metabolic syndrome X E88.81 ; Elevated serum GGT level R74.8 ; Dysthymia F34.1 and 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 [facility] [address] [id number], [place] 75[address] Jun, [facility] [address] [id number], [place] [address]158[address] May, [facility] [address] [id number], [place] [address]6487458 May, [facility] [address] [address] [id number], [place] 28[address] May, High risk medication use Z79.[address] [facility] [address] [id number], [place] 260464247 May, [facility] [address] [id number], [place] 791785782 May, Psoriasis vulgaris L40.0 and Other snf (current) drug therapy Z79.[address] [facility] [address] [id number], [place] 795238182 Mar, Hyperlipidemia E78.[address] [facility] [address] [id number], [place] 0086500[address] Mar, [facility] [address] [address] [id number], [place] [address]859360 Mar, [facility] [address] [address] [id number], [place] 946479219 Mar, Fatty liver disease, nonalcoholic K76.0 and Hyperlipidemia E78.[address] [facility] [address] [id number] [place] [address] Mar, [facility] [address] [address] [id number] [place] [address] Mar, Fatty liver disease, nonalcoholic K76.0 ; Psoriasis L40.9 and Hyperlipidemia E78.[address] [facility] [address] [id number] [place] [address] Mar, [facility] [address] [id number][place] [address] Feb, [facility] [address] [address] [id number], [place] 900[address]8551 Feb, [facility] [address] [address] [id number], [place] [address]35359921 Jan, [facility] [address] [address] [id number], [place] 5092[address]666 Dec, [facility] [address] [id number], [place] [address] Dec, [facility] [address] [facility] [id number], [place] [address] November, [facility] [address] [id number], [place] [address]674[address] November, [facility] [address] [id number], [place] 665208266 Oct, [facility] [address] [address] [id number], [place] 04656[address]67 Oct, Fatty liver disease, nonalcoholic K76.0 and Encounter for immunization Z23 [facility] [address] [facility] [id number], [place] [address] Oct, [facility] [address] [address] [id number], [place] 675209331 Sep, Fatty liver disease, nonalcoholic K76.[address] [facility] [address] [id number], [place] 807905251 Sep, Fatty liver disease, nonalcoholic K76.0 ; High risk medication use Z79.899 ; Emotional lability R45.86 ; Hyperlipidemia E78.5 and Essential hypertension with goal blood pressure less than 130\/80 I10 [facility] [address] [facility] [id number] [place] [address] Sep, [facility] [address] [id number], [place] [address]79 Aug, Mixed hyperlipidemia E78.2 and Heartburn R12 [facility] [address] [id number], [place] [address]87 Aug, High risk medication use Z79.899 ; Emotional lability R45.86 ; Pulmonary emphysema, unspecified emphysema type J43.9 and Heartburn R12 [facility] [address] [id number], [place] 523393732 Jul, [facility] [address] [id number], [place] 472739348 Jul, [facility] [address] [id number], [place] 209602649 Jun, [facility] [address] [id number], [place] 377228466 May, Right upper quadrant abdominal pain R10.11 and Fatty liver K76.0 [facility] [address] [id number], [place] 1602235[address] Apr, Elevated AFP R77.2 ; Fatty liver K76.0 ; Unspecified cirrhosis of liver K74.60 ; High risk medication use Z79.899 ; Anhedonia R45.84 and Psoriasis L40.9 [facility] [address] [id number], [place] [id number] Apr, [facility] [address] [id number], [place] 650510791 Apr, Elevated liver enzymes R74.8 [facility] [address] [id number], [place] 944651472 Apr, Abdominal pain, left lower quadrant R10.32 ; Mixed hyperlipidemia E78.2 and Hyperlipidemia 272.4 [facility] [address] [id number], [place] 630778730 09 Apr, 2015 Encounter for routine gynecological examination Z01.419 and Breast cancer screening Z12.39 [facility] [address] [id number], [place] 875967492 Apr, Abdominal pain, left lower quadrant R10.32 ; Mixed hyperlipidemia E78.2 and Lumbago M54.5 [facility] [address] [id number], [place] 680494899 Mar, Psoriasis 696.1 ; Hyperlipidemia 272.4 and Chronic pain 338.29 [facility] [address] [place] [address] AVE [id number], [place] [id number] Mar, [facility] [address] [id number], [place] 321585185 Mar, [facility] [address] [place] [address] AVE [id number], [place] 979974703 Mar, Rash and nonspecific skin eruption 782.1 [facility] [address] [place] [address] AVE [id number], [place] 648993127 Feb, Dermatitis 692.9 and Thoracic or lumbosacral neuritis or radiculitis, unspecified 724.4 [facility] [address] [id number], [place] 259745503 Feb, Dermatitis 692.9 and Follow-up examination V67.9 [facility] [address] [id number], [place] 446881949 Jan, [facility] [address] [id number], [place] 403380912 Jan, Allergic dermatitis 692.9 [facility] [address] [id number], [place] 724025292 Jan, Rash and nonspecific skin eruption 782.[address] [facility] [address] [id number] [place] [address] Jan, [facility] [address] [id number], [place] 526217478 Jan, Dermatitis 692.9 and Environmental allergies V15.[address] [facility] [address] [id number], [place] 906923858 Dec, [facility] [address] [id number], [place] 933285020 Dec, [facility] [address] [id number], [place] 952711272 Dec, [facility] [address] [id number], [place] 613664034 November, [facility] [address] [id number], [place] [id number] November, Muscle spasm 728.85 [facility] [address]00565100[place], [place] [address] Oct, [facility] [address] [id number], [place] [address] Oct, [facility] [address]00565100[place], [place] [address] Sep, [facility] [address] [id number], [place] [address] Sep, [facility] [address]00565100[place], [place] [address] Sep, [facility] [id number] [place] [address] Sep, [facility] [address] [id number], [place] [address] Sep, [facility] [id number] [place] [address] Sep, [facility] [place] [facility] [address] [id number] [place] [address] 16 Sep, 2014 [facility] [place] [facility] [address] [id number] [place] [address] 16 Sep, 2014 [facility] [place] [facility] [address] [id number] [place] [address] Aug, [facility] [place] [facility] [address] [id number] [place] [address] Aug, [facility] [place] [facility] [address] [id number] [place] [address] Jul, [facility] [place] [facility] [address] [id number] [place] [address] Jul, [facility] [place] [facility] [address] [id number] [place] [address] Jul, [facility] [place] [facility] [address] [id number] [place] [address] Jul, [facility] [place] [facility] [address] [id number] [place] [address] Jul, [facility] [place] [facility] [address] [id number] [place] [address] Jul, [facility] [place] [facility] [address] [id number] [place] [address] 18 Jun, 2014 [facility] [place] [facility] [address] [id number], [place] [address] Jun, [facility] [place] [facility] [address] [id number] [place] [address] 15 Jun, 2014 [facility] [place] [facility] [address] [id number] [place] [address] 15 Jun, 2014 [facility] [place] [facility] [address] [id number] [place] [address] 09 Jun, 2014 [facility] [place] [facility] [address] [id number] [place] [address] Jun, [facility] [place] [facility] [address] [id number] [place] [address] Jun, [facility] [place] [facility] [address] [id number] [place] [address] Jun, [facility] [place] [facility] [address] [id number] [place] [address] May, [facility] [place] [facility] [address] [id number] [place] [address] May, [facility] [place] [facility] [address] [id number] [place] [address] May, [facility] [place] [facility] [address] [id number] [place] [address] May, [facility] [place] [facility] [address] [id number] [place] [address] May, [facility] [place] [facility] [address] [id number] [place] [address] Apr, [facility] [place] [facility] [address] [id number] [place] [address] Apr, [facility] [place] [facility] [address] [facility] [id number] [place] [address] Apr, [facility] [place] [facility] [address] [id number] [place] [address] Apr, [facility] [place] [facility] [address] [id number] [place] [address] Apr, [facility] [place] [facility] [address] [id number] [place] [address] Apr, [facility] [place] [facility] [address] [id number] [place] [address] Apr, [facility] [place] [facility] [address] [id number] [place] [address] Apr, [facility] [place] [facility] [address] [id number] [place] [address] 20 Apr, 2014 [facility] [place] [facility] [address] [id number] [place] [address] 20 Apr, 2014 [facility] [place] [facility] [address] [id number] [place] [address] 17 Apr, 2014 [facility] [place] [facility] [address] [id number] [place] [address] 17 Apr, 2014 [facility] [place] [facility] [address] [id number] [place] [address] 16 Apr, 2014 [facility] [place] [facility] [address] [id number] [place] [address] 16 Apr, 2014 [facility] [place] [facility] [address] [id number] [place] [address] 15 Apr, 2014 [facility] [place] [facility] [address] [id number] [place] [address] 15 Apr, 2014 [facility] [place] [facility] [address] [id number] [place] [address] 14 Apr, 2014 [facility] [place] [facility] [address] [id number] [place] [address] 14 Apr, 2014 [facility] [place] [facility] [address] [id number] [place] [address] 13 Apr, 2014 [facility] [place] [facility] [address] [id number] [place] [address] 13 Apr, 2014 [facility] [place] [facility] [address] [id number] [place] [address] 06 Apr, 2014 [facility] [place] [facility] [address] [id number] [place] [address] 06 Apr, 2014 [facility] [place] [facility] [address] [id number] [place] [address] 05 Apr, 2014 [facility] [place] [facility] [address] [id number] [place] [address] Apr, [facility] [place] [facility] [address] [id number] [place] [address] Apr, [facility] [place] [facility] [address] [id number] [place] [address] Apr, [facility] [place] [facility] [address] [id number] [place] [address] Mar, [facility] [place] [facility] [address] [id number] [place] [address] Mar, [facility] [place] [facility] [address] [id number] [place] [address] Feb, [facility] [place] [facility] [address] [id number] [place] [address] Feb, [facility] [place] [facility] [address] [id number] [place] [address] Feb, [facility] [place] [facility] [address] [id number] [place] [address] Feb, [facility] [place] [facility] [address] [id number] [place] [address] Jan, [facility] [place] [facility] [address] [id number] [place] [address] Jan, [facility] [place] [facility] [address] [id number] [place] [address] Jan, [facility] [place] [facility] [address] [id number] [place] [address] Jan, [facility] [place] [facility] [address] [id number] [place] [address] Jan, [facility] [place] [facility] [address] [id number] [place] [address] Jan, [facility] [place] [facility] [address] [id number] [place] [address] Jan, [facility] [place] [facility] [address] [id number] [place] [address] Jan, [facility] [place] [facility] [address] [id number] [place] [address] Jan, [facility] [place] [facility] [address] [id number] [place] [address] Jan, [facility] [place] [facility] [address] [id number] [place] [address] Jan, [facility] [place] [facility] [address] [id number] [place] [address] Dec, [facility] [place] [facility] [address] [id number] [place] [address] Dec, [facility] [place] [facility] [address] [id number] [place] [address] Dec, [facility] [place] [facility] [address] [id number] [place] [address] Dec, [facility] [address] [id number] [place] [address] November, [facility] [place] [facility] [address] [id number] [place] [address] November, [facility] [address] [id number] [place] [address] November, [facility] [place] [facility] [address] [id number] [place] [address] November, [facility] [place] [facility] [address] [id number] [place] [address] November, [facility] [place] [facility] [address] [id number] [place] [address] November, [facility] [place] [facility] [address] [id number] [place] [address] November, [facility] [place] [facility] [address] [id number] [place] [address] November, [facility] [place] [facility] [address] [id number] [place] [address] November, [facility] [place] [facility] [address] [id number] [place] [address] November, [facility] [place] [facility] [address] [id number] [place] [address] November, [facility] [place] [facility] [address] [id number] [place] [address] Oct, [facility] [place] [facility] [address] [id number] [place] [address] Oct, [facility] [place] [facility] [address] [id number] [place] [address] Oct, [facility] [place] [facility] [address] [id number] [place] [address] Oct, [facility] [place] [facility] [address] [id number] [place] [address] Oct, [facility] [place] [facility] [address] [id number] [place] [address] Oct, [facility] [place] [facility] [address] [id number] [place] [address] Sep, [facility] [place] [facility] [address] [id number] [place] [address] Sep, [facility] [place] [facility] [address] [id number] [place] [address] Sep, [facility] [place] [facility] [address] [id number] [place] [address] Sep, [facility] [place] [facility] [address] [id number] [place] [address] Sep, [facility] [place] [facility] [address] [id number] [place] [address] 18 Sep, 2013 [facility] [place] [facility] [address] [id number], [place] [address] Sep, [facility] [place] [facility] [address] [id number] [place] [address] Sep, [facility] [place] [facility] [address] [id number] [place] [address] Sep, [facility] [place] [facility] [address] [id number] [place] [address] Sep, [facility] [place] [facility] [address] [id number] [place] [address] Sep, [facility] [place] [facility] [address] [id number] [place] [address] Aug, [facility] [place] [facility] [address] [id number] [place] [address] Aug, [facility] [place] [facility] [address] [id number] [place] [address] Aug, [facility] [place] [facility] [address] [id number] [place] [address] Aug, [facility] [place] [facility] [address] [id number] [place] [address] Jul, [facility] [place] [facility] [address] [facility] [id number] [place] [address] Jul, [facility] [place] [facility] [address] [id number] [place] [address] Jul, [facility] [place] [facility] [address] [id number] [place] [address] Jul, [facility] [place] [facility] [address] [id number] [place] [address] Jul, [facility] [place] [facility] [address] [id number] [place] [address] Jul, [facility] [place] [facility] [address] [id number] [place] [address] Jul, [facility] [place] [facility] [address] [id number] [place] [address] Jul, [facility] [address] [id number] [place] [address] Jul, [facility] [address] [id number] [place] [address] Jul, [facility] [address] [id number] [place] [address] Jul, [facility] [address] [id number] [place] [address] Jul, [facility] [address] [id number] [place] [address] Jul[facility] [address] [id number] [place] [address] Jun, [facility] [address] [id number] [place] [address] Jun, [facility] [address] [id number] [place] [address] Jun, [facility] [address] [id number] [place] [address] Jun, [facility] [address] [id number] [place] [address] Jun, [facility] [address] [id number] [place] [address] Jun, [facility] [place] [facility] [address] [id number] [place] [address] Jun, [facility] [place] [facility] [address] [id number] [place] [address] Jun, [facility] [place] [facility] [address] [id number] [place] [address] Jun, [facility] [place] [facility] [address] [id number] [place] [address] Jun, [facility] [address] [id number] [place] [address] Jun, [facility] [place] [facility] [address] [id number] [place] [address] Jun, [facility] [place] [facility] [address] [id number] [place] [address] Jun, [facility] [place] [facility] [address] [id number] [place] [address] Jun, [facility] [place] [facility] [address] [id number] [place] [address] Jun, [facility] [place] [facility] [address] [id number] [place] [address] Jun, [facility] [place] [facility] [address] [id number] [place] [address] Jun, [facility] [place] [facility] [address] [id number] [place] [address] Jun, [facility] [place] [facility] [address] [id number] [place] [address] Jun, [facility] [place] [facility] [address] [id number] [place] [address] Jun, [facility] [place] [facility] [address] [id number], [place] [address] Jun, [facility] [place] [facility] [address] [id number], [place] [address] Jun, [facility] [place] [facility] [address] [id number] [place] [address] Jun, [facility] [place] [facility] [address] [id number], [place] [address] May, [facility] [place] [facility] [address] [id number] [place] [address] May, [facility] [place] [facility] [address] [id number], [place] [address] Apr, [facility] [address] [id number] [id number] Mar, [facility] [address], [place] [address] Feb, [facility] [address], [place] [address] Feb, [facility] [address], [place] [address] Jan, [facility] [id number], [place] [address] Jan, [facility] [id number], [place] [address] November, [facility] [address], [place] [address] November, [facility] [address] [id number], [place] [address] Oct, [facility] [address], [place] [address] Oct, [facility] [address] [facility] [id number] [id number] November, [facility] [address] [id number], [place] [address] May, [facility] [address] [id number], [place] [address] Feb, IMMUNIZATIONS No Known Immunizations SOCIAL HISTORY Never Assessed REASON FOR VISIT refill PLAN OF CARE VITAL SIGNS MEDICATIONS [...] anxiety, depression Medical History CT abdomen at [facility] 09-14-16 shows a ventral hernia and fatty liver disease Medical History Pt no-showed colonoscopy Medical History no showed mammogram Surgical History tonsillectomy Surgical History appendectomy 03/2011 Surgical History hysterectomy, total with bilateral salpingo-oophorectomy (BSO) 03/2011 Surgical History large abdominal tumor/uterus removed 2010 Hospitalization History past surgeries
--- OUTSIDE RECORDS SUMMARY | 2019-02-08 10:44 | XMS REPORT ---
Author Author WILDA PATEL [facility] Address [address] [place] [address] Care Team Providers Care Boilermaker Fitter Name Role Phone WILDA PATEL Unavailable PROBLEMS Type Condition ICD9-CM Code [id number] Code Onset Dates Condition Status SNOMED Code Assessment Fatty liver disease, nonalcoholic K76.0 Mar, Active 474275637 Problem Pulmonary emphysema, unspecified emphysema type J43.9 Active 60853868 Problem Heartburn R12 Active 80080420 Problem Psoriasis L40.9 Active 7038099 Problem Fatty liver disease, nonalcoholic K76.0 Active 959882415 Problem High risk medication use Z79.899 Active 680584457 Problem Emotional lability R45.86 Active 07447654 Problem Hyperlipidemia E78.5 Active 77942474 Problem Essential hypertension with goal blood pressure less than 130\/80 I10 Active 59960469 ALLERGIES Unknown Allergies SOCIAL HISTORY No smoking Hx information available PLAN OF CARE VITAL SIGNS MEDICATIONS Unknown Medications RESULTS Name Result Date Reference Range LIPID PANEL 2016-04-05 Cholesterol, Total 273 100-199 Triglycerides 193 0-149 HDL Cholesterol 63 >39 VLDL Cholesterol Mane 39 5-40 LDL Cholesterol Calc 171 0-99 CMP 2016-04-05 Glucose, Serum 92 65-99 BUN 13 6-24 Creatinine, Serum 0.82 0.57-1.00 eGFR If NonAfricn Am 83 >59 eGFR If Africn Am 95 >59 BUN/Creatinine Ratio 16 9-23 Sodium, Serum 141 134-144 Potassium, Serum 4.8 3.5-5.2 Chloride, Serum 103 97-108 Carbon Dioxide, Total 23 18-29 Calcium, Serum 11.3 8.7-10.2 Protein, Total, Serum 6.9 6.0-8.5 Albumin, Serum 4.6 3.5-5.5 Globulin, Total 2.3 1.5-4.5 A/G Ratio 2.0 1.1-2.5 Bilirubin, Total 0.3 0.0-1.2 Alkaline Phosphatase, S 74 39-117 AST (SGOT) 39 0-40 ALT (SGPT) 75 0-32 HEP C, FIBROSURE (INSURED ONLY)-APPROVAL REQUIRED 2016-04-05 Fibrosis Score 0.09 0.00-0.21 Fibrosis Stage Necroinflammat Activity Score 0.39 0.00-0.17 Necroinflammat Activity Grade A1-A2 Alpha 2-Macroglobulins, Qn 166 110-276 Haptoglobin 131 34-200 Apolipoprotein A-1 198 116-209 Bilirubin, Total 0.2 0.0-1.2 GGT 180 0-60 ALT (SGPT) P5P 79 0-40 Interpretations: Fibrosis Scoring: Necroinflamm Activity Scoring: Limitations: Comment: PROCEDURES Procedure Date Ordered Related Diagnosis Body Site LIPID PANEL Apr 05, 2016 COMPREHEN METABOLIC PANEL Apr 05, 2016 ALANINE AMINO (ALT) (SGPT) Apr 05, 2016 ASSAY OF HAPTOGLOBIN, QUANT Apr 05, 2016 BILIRUBIN, TOTAL Apr 05, 2016 ASSAY, NEPHELOMETRY NOT SPEC Apr 05, 2016 VENIPUNCT, ROUTINE* Apr 05, 2016 ASSAY OF APOLIPOPROTEIN Apr 05, 2016 ASSAY OF GGT Apr 05, 2016 IMMUNIZATIONS No Known Immunizations
--- OUTSIDE RECORDS SUMMARY | 2019-02-08 10:44 | XMS REPORT ---
Author Author BJ PRICE Organization 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 Active 866923974 Problem Elevated serum GGT level R74.8 Active 787512391 Problem Dysthymia F34.1 Active 97024465 Problem Mixed hyperlipidemia E78.2 Active 437189554 Problem Gynecologic exam normal Z01.419 Active 609768854 Problem Colon cancer screening Z12.11 Active 584150575 Problem Metabolic syndrome X E88.81 Active 570892990 Problem Breast cancer screening Z12.39 Active 089483007 Problem Weight loss R63.4 Active 275512140 Problem Pulmonary emphysema, unspecified emphysema type J43.9 Active 94059938 Problem Emotional lability R45.86 Active 80252972 Problem Heartburn R12 Active 46313796 Problem Hyperlipidemia E78.5 Active 16871213 Problem Fatty liver disease, nonalcoholic K76.0 Active 325374063 Problem High risk medication use Z79.899 Active 104793444 Problem Psoriasis L40.9 Active 9970318 Problem Essential hypertension with goal blood pressure less than 130\/80 I10 Active 33294554 Problem Psoriasis vulgaris L40.0 Active 175194671 ALLERGIES Unknown Allergies SOCIAL HISTORY No smoking Hx information available PLAN OF CARE VITAL SIGNS MEDICATIONS Unknown Medications RESULTS No Results PROCEDURES No Known procedures IMMUNIZATIONS No Known Immunizations
--- OUTSIDE RECORDS SUMMARY | 2019-02-08 10:44 | XMS REPORT ---
Author SHA Bass [facility] e[employer] Address Unknown Phone Unavailable Care Team Providers Care Compliance Coordinator Name Role Phone SHA RÍOS CP Unavailable Allergies No Known Allergies Problems Problem Type Condition Code Onset Dates Condition Status Problem Unspecified essential hypertension 401.9 Active Problem Other chronic pain 338.29 Active Problem Proteinuria 791.0 Active Problem Muscle spasm 728.85 Active Problem Contact dermatitis and other eczema, due to unspecified cause 692.9 Active Problem Other abnormal blood chemistry 790.6 Active Problem Unspecified breast screening V76.10 Active Problem Thoracic or lumbosacral neuritis or radiculitis, unspecified 724.4 Active Problem Hyperlipidemia 272.4 Active Problem Dysthymic disorder 300.4 Active Problem Erythema nodosum 695.2 Active Problem Counseling on substance use and abuse V65.42 Active Problem Esophageal reflux 530.81 Active Problem Personal history of unspecified disease V13.9 Active Problem Other screening mammogram V76.12 Active Problem Other chronic nonalcoholic liver disease 571.8 Active Problem Abdominal pain, left upper quadrant 789.02 Active Problem Need for prophylactic vaccination and inoculation, Influenza V04.81 Active Problem Allergic rhinitis, cause unspecified 477.9 Active Problem Nondependent cannabis abuse, 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
--- OUTSIDE RECORDS SUMMARY | 2019-02-08 10:44 | XMS REPORT ---
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 Name Role Phone WILDA PATEL Unavailable PROBLEMS Type Condition ICD9-CM Code DEE20-TW Code Onset Dates Condition Status SNOMED Code Problem Emotional lability R45.86 Active 83691025 Problem Heartburn R12 Active 58129537 Problem High risk medication use Z79.899 Active 697283880 Problem Colon cancer screening Z12.11 Active 839992291 Problem Pulmonary emphysema, unspecified emphysema type J43.9 Active 14645994 Problem Mixed hyperlipidemia E78.2 Active 144334708 Problem Fatty liver disease, nonalcoholic K76.0 Active 100564480 Problem Colonoscopy refused Z53.20 Active 674315193 Problem Lumbago with sciatica, left side M54.42 Active 699513950 Problem Other chronic pain G89.29 Active 54746241 Problem Serum calcium elevated E83.52 Active 41679585 Problem Urinary frequency R35.0 Active 694311931 Problem Psoriasis L40.9 Active 7839961 Problem Hyperlipidemia E78.5 Active 69699832 Problem Essential hypertension with goal blood pressure less than 130\/80 I10 Active 12946032 Problem Dental caries K02.9 Active 95669038 Problem Lumbago with sciatica, right side M54.41 Active 392979824191461 Problem Substance abuse F19.10 Active 96012930 Problem Hematuria, unspecified type R31.9 Active 88943654 Problem Metabolic syndrome X E88.81 Active 220023707 Problem Elevated serum GGT level R74.8 Active 869800890 Problem Psoriasis vulgaris L40.0 Active 776283389 Problem Dysthymia F34.1 Active 25253907 Problem Breast cancer screening Z12.39 Active 441800151 Problem Weight loss R63.4 Active 843759827 Problem 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 Active 355439267 Problem Gynecologic exam normal Z01.419 Active 059688924 ALLERGIES No Information ENCOUNTERS Encounter Location Date Diagnosis [facility] [address] [id number] [address] Jan, [facility] [address] [address] [id number][place] [address] November, Serum calcium elevated E83.52 and Elevated serum GGT level R74.8 [facility] [address] [id number][place] [address] November, Fatty liver disease, nonalcoholic K76.[address] [facility] [address] [id number][place] [address]2388[address] November, High risk medication use Z79.899 ; Hematuria, unspecified type R31.9 ; Dental caries K02.9 ; Urinary frequency R35.0 and Substance abuse F19.10 [facility] [address] [id number][place] [address] Sep, [facility] [address] [id number][place] [address] Aug, [facility] [address] [id number], [place] [address] Aug, [facility] [address] [id number][place] [address] Jul, [facility] [address] [id number][place] [address] Jun, [facility] [address] [id number][place] [address] Jun, Hematuria, unspecified type R31.9 [facility] [address] [id number][place] [address] May, Lumbago with sciatica, left side M54.42 and Hematuria, unspecified type R31.9 [facility] [address] [id number][place] [address] May, Hematuria, unspecified type R31.[address] [facility] [address] [id number][place] [address] Apr, High risk medication use Z79.899 ; Lumbago with sciatica, left side M54.42 ; Lumbago with sciatica, right side M54.41 ; Other chronic pain G89.29 ; Emotional lability R45.86 and Colonoscopy refused Z53.[address] [facility] [address] [id number][place] [address] Feb, [facility] [address] [id number][place] [address] Feb, [facility] [address] [facility] [id number] [place] [address] Jan, [facility] [address] [id number][place] [address] Jan, Psoriasis vulgaris L40.[address] [facility] [address] [id number][place] [address] Jan, High risk medication use Z79.899 [facility] [address] [id number], [place] [address]99[address] Dec, Psoriasis vulgaris L40.0 [facility] [address] [id number][place] [address] Oct, Mixed hyperlipidemia E78.2 and High risk medication use Z79.[address] [facility] [address] [id number][place] [address] Oct, [facility] [address] [id number][place] [address] Oct, [facility] [address] [id number][place] [address]65[address] Oct, Hyperlipidemia E78.5 and Weight loss R63.[address] [facility] [address] [id number], [place] [address] Oct, Gynecologic exam normal Z01.419 ; Breast cancer screening Z12.39 ; Weight loss R63.4 and Colon cancer screening Z12.[address] [facility] [address] [id number] [place] [address] Jul, [facility] [address] [id number], [place] [address]67[address] Jul, High risk medication use Z79.[address] [facility] [address] [id number], [place] [address]79[address]35[address] Jul, Metabolic syndrome X E88.81 ; Elevated serum GGT level R74.8 ; Dysthymia F34.1 and 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 [facility] [address] [id number], [place] [address] Jun, [facility] [address] [id number][place] [address] May, [facility] [address] [id number][place] [address] May, [facility] [address] [id number], [place] [address]78[address] May, High risk medication use Z79.[address] [facility] [address] [id number], [place] 20986[address] May, [facility] [address] [id number], [place] [address] May, Psoriasis vulgaris L40.0 and Other halfway (current) drug therapy Z79.[address] [facility] [address] [id number], [place] [address]68[address]604 Mar, Hyperlipidemia E78.[address] [facility] [address] [id number], [place] 394[address] Mar, [facility] [address] [id number], [place] [address]40[address] Mar, [facility] [address] [id number], [place] 1840[address] Mar, Fatty liver disease, nonalcoholic K76.0 and Hyperlipidemia E78.[address] [facility] [address] [id number] [place] [address] Mar, [facility] [address] [id number] [place] [address] Mar, Fatty liver disease, nonalcoholic K76.0 ; Psoriasis L40.9 and Hyperlipidemia E78.[address] [facility] [address] [id number] [place] [address] Mar, [facility] [address] [id number][place] [address] Feb, [facility] [address] [id number], [place] 963378196 Feb, [facility] [address] [id number], [place] [address]451934[address] Jan, [facility] [address] [id number], [place] 48498[address] Dec, [facility] [address] [id number], [place] [address]290633 Dec, [facility] [address] [facility] [id number] [place] [address] November, [facility] [address] [id number], [place] 284[address]37[address] November, [facility] [address] [id number], [place] 081752685 Oct, [facility] [address] [id number], [place] [address] Oct, Fatty liver disease, nonalcoholic K76.0 and Encounter for immunization Z23 [facility] [address] [facility] [id number] [place] [address] Oct, [facility] [address] [id number], [place] 258844341 Sep, Fatty liver disease, nonalcoholic K76.[address] [facility] [address] [id number], [place] 715870990 Sep, Fatty liver disease, nonalcoholic K76.0 ; High risk medication use Z79.899 ; Emotional lability R45.86 ; Hyperlipidemia E78.5 and Essential hypertension with goal blood pressure less than 130\/80 I10 [facility] [place] [address] [facility] [id number] [place] [address] Sep, [facility] [address] [id number], [place] [address]80[address] Aug, Mixed hyperlipidemia E78.2 and Heartburn R12 [facility] [address] [id number], [place] 922464748 Aug, High risk medication use Z79.899 ; Emotional lability R45.86 ; Pulmonary emphysema, unspecified emphysema type J43.9 and Heartburn R12 [facility] [address] [id number], [place] [address]44605057 Jul, [facility] [address] [id number], [place] [address]48936[address] Jul, [facility] [address] [id number], [place] 021549748 Jun, [facility] [address] [id number], [place] 0824075[address] May, Right upper quadrant abdominal pain R10.11 and Fatty liver K76.0 [facility] [address] [id number], [place] 218424634 Apr, Elevated AFP R77.2 ; Fatty liver K76.0 ; Unspecified cirrhosis of liver K74.60 ; High risk medication use Z79.899 ; Anhedonia R45.84 and Psoriasis L40.9 [facility] [address] [id number], [place] 763738[address] Apr, [facility] [address] [id number], [place] 371314808 Apr, Elevated liver enzymes R74.8 [facility] [address] [id number], [place] 843286354 Apr, Abdominal pain, left lower quadrant R10.32 ; Mixed hyperlipidemia E78.2 and Hyperlipidemia 272.4 [facility] [address] [address] [id number], [place] [address]224265 09 Apr, 2015 Encounter for routine gynecological examination Z01.419 and Breast cancer screening Z12.39 [facility] [address] [id number], [place] 666103749 Apr, Abdominal pain, left lower quadrant R10.32 ; Mixed hyperlipidemia E78.2 and Lumbago M54.5 [facility] [address] [id number], [place] 670073152 Mar, Psoriasis 696.1 ; Hyperlipidemia 272.4 and Chronic pain 338.29 [facility] [address] [place] [address] AVE [id number], [place] 125734564 Mar, [facility] [address] [id number], [place] 259737746 Mar, [facility] [address] [place] [address] AVE [id number], [place] 636695182 Mar, Rash and nonspecific skin eruption 782.1 [facility] [address] [place] [address] AVE [id number], [place] 795462579 Feb, Dermatitis 692.9 and Thoracic or lumbosacral neuritis or radiculitis, unspecified 724.4 [facility] [address] [id number], [place] 620096559 Feb, Dermatitis 692.9 and Follow-up examination V67.9 [facility] [address] [id number], [place] 485529125 Jan, [facility] [address] [id number], [place] 155324941 Jan, Allergic dermatitis 692.9 [facility] [address] [id number], [place] 732083867 Jan, Rash and nonspecific skin eruption 782.[address] [facility] [address] [id number] [place] [address] Jan, [facility] [address] [id number], [place] 943568892 Jan, Dermatitis 692.9 and Environmental allergies V15.[address] [facility] [address] [id number], [place] 634869500 Dec, [facility] [address] [id number], [place] 548453136 Dec, [facility] [address] [id number], [place] 762129794 Dec, [facility] [address] [id number], [place] 753146913 November, [facility] [address] [id number], [place] 770705062 November, Muscle spasm 728.85 [facility] [address]00565100[place] [address] Oct, [facility] [address] [id number] [address] Oct, [facility] [address]00565100[place] [address] Sep, [facility] [place] [facility] [address] [id number] [address] Sep, [facility] [address]00565100[place] [address] Sep, [facility] [id number] [place] [address] Sep, [facility] [place] [address] [id number] [place] [address] Sep, [facility] [place] [facility] [id number] [place] [address] Sep, [facility] [place] [facility] [address] [id number] [place] [address] 16 Sep, 2014 [facility] [place] [facility] [address] [id number] [place] [address] 16 Sep, 2014 [facility] [place] [facility] [address] [id number] [place] [address] Aug, [facility] [place] [facility] [address] [id number] [place] [address] Aug, [facility] [place] [facility] [address] [id number] [place] [address] Jul, [facility] [place] [facility] [address] [id number] [place] [address] Jul, [facility] [place] [facility] [address] [id number] [place] [address] Jul, [facility] [place] [facility] [address] [id number] [place] [address] Jul, [facility] [place] [facility] [address] [id number] [place] [address] Jul, [facility] [place] [facility] [address] [id number] [place] [address] Jul, [facility] [place] [facility] [address] [id number] [place] [address] 18 Jun, 2014 [facility] [place] [facility] [address] [id number] [place] [address] Jun, [facility] [place] [facility] [address] [id number] [place] [address] 15 Jun, 2014 [facility] [place] [facility] [address] [id number] [place] [address] 15 Jun, 2014 [facility] [place] [facility] [address] [id number] [place] [address] 09 Jun, 2014 [facility] [place] [facility] [address] [id number] [place] [address] Jun, [facility] [place] [facility] [address] [id number] [place] [address] Jun, [facility] [place] [facility] [address] [id number] [place] [address] Jun, [facility] [place] [facility] [address] [id number] [place] [address] May, [facility] [place] [facility] [address] [id number] [place] [address] May, [facility] [place] [facility] [address] [id number] [place] [address] May, [facility] [place] [facility] [address] [id number] [place] [address] May, [facility] [place] [facility] [address] [id number] [place] [address] May, [facility] [place] [facility] [address] [id number] [place] [address] Apr, [facility] [place] [facility] [address] [id number] [place] [address] Apr, [facility] [place] [facility] [address] [facility] [id number] [place] [address] Apr, [facility] [place] [facility] [address] [id number] [place] [address] Apr, [facility] [place] [facility] [address] [id number] [place] [address] Apr, [facility] [place] [facility] [address] [id number] [place] [address] Apr, [facility] [place] [facility] [address] [id number] [place] [address] Apr, [facility] [place] [facility] [address] [id number] [place] [address] Apr, [facility] [place] [facility] [address] [id number] [place] [address] 20 Apr, 2014 [facility] [place] [facility] [address] [id number] [place] [address] 20 Apr, 2014 [facility] [place] [facility] [address] [id number] [place] [address] 17 Apr, 2014 [facility] [place] [facility] [address] [id number] [place] [address] 17 Apr, 2014 [facility] [place] [facility] [address] [id number] [place] [address] 16 Apr, 2014 [facility] [place] [facility] [address] [id number] [place] [address] 16 Apr, 2014 [facility] [place] [facility] [address] [id number] [place] [address] 15 Apr, 2014 [facility] [place] [facility] [address] [id number] [place] [address] 15 Apr, 2014 [facility] [place] [facility] [address] [id number] [place] [address] 14 Apr, 2014 [facility] [place] [facility] [address] [id number] [place] [address] 14 Apr, 2014 [facility] [place] [facility] [address] [id number] [place] [address] 13 Apr, 2014 [facility] [place] [facility] [address] [id number] [place] [address] 13 Apr, 2014 [facility] [place] [facility] [address] [id number] [place] [address] 06 Apr, 2014 [facility] [place] [facility] [address] [id number] [place] [address] 06 Apr, 2014 [facility] [place] [facility] [address] [id number] [place] [address] 05 Apr, 2014 [facility] [place] [facility] [address] [id number] [place] [address] Apr, [facility] [place] [facility] [address] [id number] [place] [address] Apr, [facility] [place] [facility] [address] [id number] [place] [address] Apr, [facility] [place] [facility] [address] [id number] [place] [address] Mar, [facility] [place] [facility] [address] [id number] [place] [address] Mar, [facility] [place] [facility] [address] [id number] [place] [address] Feb, [facility] [place] [facility] [address] [id number] [place] [address] Feb, [facility] [place] [facility] [address] [id number] [place] [address] Feb, [facility] [place] [facility] [address] [id number] [place] [address] Feb, [facility] [place] [facility] [address] [id number] [place] [address] Jan, [facility] [place] [facility] [address] [id number] [place] [address] Jan, [facility] [place] [facility] [address] [id number] [place] [address] Jan, [facility] [place] [facility] [address] [id number] [place] [address] Jan, [facility] [place] [facility] [address] [id number] [place] [address] Jan, [facility] [place] [facility] [address] [id number] [place] [address] Jan, [facility] [place] [facility] [address] [id number] [place] [address] Jan, [facility] [place] [facility] [address] [id number] [place] [address] Jan, [facility] [place] [facility] [address] [id number] [place] [address] Jan, [facility] [place] [facility] [address] [id number] [place] [address] Jan, [facility] [place] [facility] [address] [id number] [place] [address] Jan, [facility] [place] [facility] [address] [id number] [place] [address] Dec, [facility] [place] [facility] [address] [id number] [place] [address] Dec, [facility] [place] [facility] [address] [id number] [place] [address] Dec, [facility] [place] [facility] [address] [id number] [place] [address] Dec, [facility] [address] [id number] [place] [address] November, [facility] [place] [facility] [address] [id number] [place] [address] November, [facility] [address] [id number] [place] [address] November, [facility] [place] [facility] [address] [id number] [place] [address] November, [facility] [place] [facility] [address] [id number] [place] [address] November, [facility] [place] [facility] [address] [id number] [place] [address] November, [facility] [place] [facility] [address] [id number] [place] [address] November, [facility] [place] [facility] [address] [id number] [place] [address] November, [facility] [place] [facility] [address] [id number] [place] [address] November, [facility] [place] [facility] [address] [id number] [place] [address] November, [facility] [place] [facility] [address] [id number] [place] [address] November, [facility] [place] [facility] [address] [id number] [place] [address] Oct, [facility] [place] [facility] [address] [id number] [place] [address] Oct, [facility] [place] [facility] [address] [id number] [place] [address] Oct, [facility] [place] [facility] [address] [id number] [place] [address] Oct, [facility] [place] [facility] [address] [id number] [place] [address] Oct, [facility] [place] [facility] [address] [id number] [place] [address] Oct, [facility] [place] [facility] [address] [id number] [place] [address] Sep, [facility] [place] [facility] [address] [id number] [place] [address] Sep, [facility] [place] [facility] [address] [id number] [place] [address] Sep, [facility] [place] [facility] [address] [id number] [place] [address] Sep, [facility] [place] [facility] [address] [id number] [place] [address] Sep, [facility] [place] [facility] [address] [id number] [place] [address] 18 Sep, 2013 [facility] [place] [facility] [address] [id number] [place] [address] Sep, [facility] [place] [facility] [address] [id number] [place] [address] Sep, [facility] [place] [facility] [address] [id number] [place] [address] Sep, [facility] [place] [facility] [address] [id number] [place] [address] Sep, [facility] [place] [facility] [address] [id number] [place] [address] Sep, [facility] [place] [facility] [address] [id number] [place] [address] Aug, [facility] [place] [facility] [address] [id number] [place] [address] Aug, [facility] [place] [facility] [address] [id number] [place] [address] Aug, [facility] [place] [facility] [address] [id number] [place] [address] Aug, [facility] [place] [facility] [address] [id number] [place] [address] Jul, [facility] [place] [facility] [address] [facility] [id number] [place] [address] Jul, [facility] [place] [facility] [address] [id number] [place] [address] Jul, [facility] [place] [facility] [address] [id number] [place] [address] Jul, [facility] [place] [facility] [address] [id number] [place] [address] Jul, [facility] [place] [facility] [address] [id number] [place] [address] Jul, [facility] [place] [facility] [address] [id number] [place] [address] Jul, [facility] [place] [facility] [address] [id number] [place] [address] Jul, [facility] [address] [id number] [place] [address] Jul, [facility] [address] [id number] [place] [address] Jul, [facility] [address] [id number] [place] [address] Jul, [facility] [address] [id number] [place] [address] Jul, [facility] [address] [id number] [place] [address] Jul, [facility] [address] [id number] [place] [address] Jun, [facility] [address] [id number] [place] [address] Jun, [facility] [address] [id number] [place] [address] Jun, [facility] [address] [id number] [place] [address] Jun, [facility] [address] [id number] [place] [address] Jun, [facility] [address] [id number] [place] [address] Jun, [facility] [place] [facility] [address] [id number] [place] [address] Jun, [facility] [place] [facility] [address] [id number] [place] [address] Jun, [facility] [place] [facility] [address] [id number] [place] [address] Jun, [facility] [place] [facility] [address] [id number] [place] [address] Jun, [facility] [address] [id number] [place] [address] Jun, [facility] [place] [facility] [address] [id number] [place] [address] Jun, [facility] [place] [facility] [address] [id number] [place] [address] Jun, [facility] [place] [facility] [address] [id number] [place] [address] Jun, [facility] [facility] [address] [id number] [place] [address] Jun, [facility] [place] [facility] [address] [id number] [place] [address] Jun, [facility] [place] [facility] [address] [id number] [place] [address] Jun, [facility] [place] [facility] [address] [id number] [place] [address] Jun, [facility] [place] [facility] [address] [id number] [place] [address] Jun, [facility] [place] [facility] [address] [id number] [place] [address] Jun, [facility] [place] [facility] [address] [id number] [place] [address] Jun, [facility] [place] [facility] [address] [id number] [place] [address] Jun, [facility] [place] [facility] [address] [id number] [place] [address] Jun, [facility] [place] [facility] [address] [id number] [place] [address] May, [facility] [place] [facility] [address] [id number] [place] [address] May, [facility] [place] [facility] [address] [id number] [place] [address] Apr, [facility] [address] [facility] [id number] [id number] Mar, [facility] [place] [address] [id number] [place] [address] Feb, [facility] [place] [address] [place] [address] Feb, [facility] [place] [address] [place] [address] Jan, [facility] [place] [address] [place] [address] Jan, [facility] [place] [address] [place] [address] November, [facility] [place] [address] [place] [address] November, [facility] [place] [address] [id number] [address] Oct, [facility] [place] [address] [place] [address] Oct, [facility] [address] [facility] [id number][place] [id number] November, [facility] [place] [address] [id number] [address] May, [facility] [place] [address] [id number] [address] Feb, IMMUNIZATIONS No Known Immunizations SOCIAL HISTORY Never Assessed REASON FOR VISIT waiting for call PLAN OF CARE VITAL SIGNS MEDICATIONS Medication Instructions Dosage Frequency Start Date End Date Duration Status Metoprolol Tartrate 50 mg Orally Once a day 1 tablet 24h 30 Active RESULTS No Results PROCEDURES No Known [...]
--- OUTSIDE RECORDS SUMMARY | 2019-02-08 10:44 | XMS REPORT ---
Author Author WILDA PATEL [facility] eClinicalWorks Address Unknown Phone Unavailable Care Team Providers Care Stockroom Selector Name Role Phone WILDA PATEL CP Unavailable Allergies No Known Allergies Problems Problem Type Condition Code Onset Dates Condition Status Assessment Psoriasis vulgaris L40.0 Active Problem Pulmonary emphysema, unspecified emphysema type J43.9 Active Problem Heartburn R12 Active Assessment Other long goods drier (current) drug therapy Z79.899 Active Problem Psoriasis L40.9 Active Problem Fatty liver disease, nonalcoholic K76.0 Active Problem Psoriasis vulgaris L40.0 Active Problem High risk medication use Z79.899 Active Problem Emotional lability R45.86 Active Problem Hyperlipidemia E78.5 Active Problem Essential hypertension with goal blood pressure less than 130\/80 I10 Active Medications No Known Medications Procedures Procedure Coding System Code Date COMPREHEN METABOLIC PANEL CPT-4 74849 May 24, 2016 COMPLETE CBC W/AUTO DIFF WBC CPT-4 95300 May 24, 2016 Results Name Result Date Reference Range Unit Abnormality Flag CBC ----Neutrophils (Absolute) 7.1 [id number] 1.4-7.0 x10E3/uL H ----Basos 1 59884339 % ----Monocytes(Absolute) 0.6 [id number] 0.1-0.9 x10E3/uL ----Lymphs (Absolute) 2.2 [id number] 0.7-3.1 x10E3/uL ----Platelets 609 94632390 150-379 x10E3/uL H ----Baso (Absolute) 0.1 97966927 0.0-0.2 x10E3/uL ----RDW 13.3 35390697 12.3-15.4 % ----Eos (Absolute) 0.2 56229525 0.0-0.4 x10E3/uL ----MCHC 32.7 43674449 31.5-35.7 g/dL ----MCH 29.2 03194738 26.6-33.0 pg ----MCV 90 51075310 79-97 fL ----Lymphs 21 59178704 % ----Neutrophils 70 13175558 % ----Eos 2 91942363 % ----Monocytes 6 02523873 % ----Immature Granulocytes 0 94048240 % ----Immature Grans (Abs) 0.0 92454868 0.0-0.1 x10E3/uL ----WBC 10.2 72410926 3.4-10.8 x10E3/uL ----RBC 4.48 06692138 3.77-5.28 x10E6/uL ----Hemoglobin 13.1 31410930 11.1-15.9 g/dL ----Hematocrit 40.1 54731966 34.0-46.6 % CMP ----Sodium, Serum 140 46367835 136-144 mmol/L ----BUN/Creatinine Ratio 11 20160524 9-23 ----Chloride, Serum 102 75604633 97-106 mmol/L ----Potassium, Serum 4.2 49125499 3.5-5.2 mmol/L ----Calcium, Serum 11.1 77987320 8.7-10.2 mg/dL H ----Protein, Total, Serum 6.9 04354124 6.0-8.5 g/dL ----Carbon Dioxide, Total 24 86402000 18-29 mmol/L ----A/G Ratio 1.8 24129264 1.1-2.5 ----eGFR If NonAfricn Am 74 16364649 >59 mL/min/1.73 ----Bilirubin, Total 0.3 85930703 0.0-1.2 mg/dL ----eGFR If Africn Am 86 49159295 >59 mL/min/1.73 ----BUN 10 75821933 6-24 mg/dL ----Albumin, Serum 4.4 35814172 3.5-5.5 g/dL ----Globulin, Total 2.5 08036529 1.5-4.5 g/dL ----Creatinine, Serum 0.89 13158199 0.57-1.00 mg/dL ----ALT (SGPT) 55 20160524 0-32 IU/L H ----Glucose, Serum 114 54838589 65-99 mg/dL H ----Alkaline Phosphatase, S 81 20160524 39-117 IU/L ----AST (SGOT) 35 20160524 0-40 IU/L Summary Purpose eClinicalWorks Submission
--- OUTSIDE RECORDS SUMMARY | 2019-02-08 10:44 | XMS REPORT ---
Author Author WILDA PATEL [facility] eClinicalWorks Address Unknown Phone Unavailable Care Team Providers Care Filler Machine Operator Name Role Phone WILDA PATEL CP Unavailable Allergies, Adverse Reactions, Alerts Substance Reaction Event Type Codeine Info Not Available Drug Allergy Problems Problem Type Condition Code Onset Dates Condition Status Assessment Heartburn R12 Active Problem Emotional lability R45.86 Active Problem Pulmonary emphysema, unspecified emphysema type J43.9 Active Problem High risk medication use Z79.899 Active Assessment Emotional lability R45.86 Active Assessment Pulmonary emphysema, unspecified emphysema type J43.9 Active Problem Heartburn R12 Active Assessment High risk medication use Z79.899 Active Medications Medication Code System Code Instructions Start Date End Date Status Dosage Cyclobenzaprine HCl [facility] [address]-72 10 MG Orally 2 times a day November 17, 2014 1 tablet-must last 6 months Proventil HFA [facility] [address]-46 108 (90 Base) MCG/ACT Inhalation 4 times a day 2 puffs as needed Ultram [facility] [address]-08 50 MG Orally 2 times a day 1 tablet as needed BusPIRone HCl [facility] [address]-96 10 MG Orally Twice a day Aug 20, 2015 1 tablet for anxiety Prilosec [facility] 93207236528 40 MG take 1 capsule by Oral route before a meal 1 time per day Claritin [facility] 63642243001 10 MG 1 tablet Once a day Orally 30 day(s) Famotidine [facility] [address]-09 20 MG Orally Twice a day 1 tablet before meals as needed Lisinopril [facility] 01547063928 10 MG 1 tablet by Oral route 1 time per day Celexa [facility] [address]-52 40 MG Orally Once a day Jun 19, 2014 1 tablet Multivitamins [facility] [address] Orally not defined Mirtazapine [facility] 46052601067 30 MG TAKE ONE TABLET BY MOUTH ONCE DAILY BEFORE BEDTIME. Atorvastatin Calcium [facility] [address]-27 40 MG Orally Once a day 1 tablet Pepcid [facility] 56367208108 20 MG 1 tablet by Oral route 2 times per day Metformin HCl [facility] 20440383384 500 MG take 1 tablet by Oral route 2 times per day with morning and evening meals Metoprolol Tartrate [facility] 70929069436 50 MG take 1 tablet by Oral route 1 time per day with meals ER Tricor [facility] [address]-00 145 mg Apr 21, 2014 1 tablet by Oral route 1 time per day Procedures Procedure Coding System Code Date Office Visit, Est Pt., Level 3 CPT-4 43856 Aug 20, 2015 Vital Signs Date/Time: Aug 20, 2015 Temperature 97.2 F Weight 177.5 lbs Height 63 in BMI 31.44 Index Blood Pressure Diastolic 86 mmHg Blood Pressure Systolic 128 mmHg Cardiac Monitoring Heart Rate 77 bpm Results No Known Results Summary Purpose eClinicalWorks Submission
--- OUTSIDE RECORDS SUMMARY | 2019-02-08 10:45 | XMS REPORT ---
Author Author WILDA PATEL [facility] Address [address] [place] [address] Care Team Providers Care Die Turner Name Role Phone JORGE WILDA Unavailable PROBLEMS Type Condition ICD9-CM Code [id number] Code Onset Dates Condition Status SNOMED Code Assessment Hyperlipidemia E78.5 Mar, Active 96998173 Problem Pulmonary emphysema, unspecified emphysema type J43.9 Active 46095308 Problem Heartburn R12 Active 84795514 Problem Psoriasis L40.9 Active 9729350 Problem Fatty liver disease, nonalcoholic K76.0 Active 481293560 Problem High risk medication use Z79.899 Active 597745624 Problem Emotional lability R45.86 Active 29989319 Problem Hyperlipidemia E78.5 Active 25340687 Problem Essential hypertension with goal blood pressure less than 130\/80 I10 Active 94357001 ALLERGIES Unknown Allergies SOCIAL HISTORY No smoking Hx information available PLAN OF CARE VITAL SIGNS MEDICATIONS Medication Instructions Dosage Frequency Start Date End Date Duration Status Crestor 20 mg Orally Once a day 1 tablet 24h Mar, Active RESULTS No Results PROCEDURES No Known procedures IMMUNIZATIONS No Known Immunizations
--- OUTSIDE RECORDS SUMMARY | 2019-02-08 10:45 | XMS REPORT ---
Author Author WILDA PATEL [facility] Address [address] [place] [address] Care Team Providers Care Oyster Sorter Name Role Phone WILDA PATEL Unavailable PROBLEMS Type Condition ICD9-CM Code [id number] Code Onset Dates Condition Status SNOMED Code Problem Pulmonary emphysema, unspecified emphysema type J43.9 Active 28894871 Problem Heartburn R12 Active 04623963 Problem Psoriasis L40.9 Active 5562285 Problem Fatty liver disease, nonalcoholic K76.0 Active 861957027 Problem High risk medication use Z79.899 Active 117942087 Problem Emotional lability R45.86 Active 01642750 Problem Hyperlipidemia E78.5 Active 85533027 Problem Essential hypertension with goal blood pressure less than 130\/80 I10 Active 06768430 ALLERGIES Unknown Allergies SOCIAL HISTORY No smoking Hx information available PLAN OF CARE VITAL SIGNS MEDICATIONS Medication Instructions Dosage Frequency Start Date End Date Duration Status Atorvastatin Calcium 40 mg Orally Once a day 1 tablet 24h Active RESULTS No Results PROCEDURES No Known procedures IMMUNIZATIONS No Known Immunizations
--- OUTSIDE RECORDS SUMMARY | 2019-02-08 10:45 | XMS REPORT ---
Author Author WILDA PATEL Organization eClinicalWorks Address Unknown Phone Unavailable Care Team Providers Care Materials Buyer Name Role Phone WILDA PATEL CP Unavailable Allergies No Known Allergies Problems Problem Type Condition Code Onset Dates Condition Status Problem Pulmonary emphysema, unspecified emphysema type J43.9 Active Problem Heartburn R12 Active Problem Psoriasis L40.9 Active Problem Fatty liver disease, nonalcoholic K76.0 Active Problem Psoriasis vulgaris L40.0 Active Problem High risk medication use Z79.899 Active Problem Emotional lability R45.86 Active Problem Hyperlipidemia E78.5 Active Problem Essential hypertension with goal blood pressure less than 130\/80 I10 Active Medications No Known Medications Results No Known Results Summary Purpose eClinicalWorks Submission
--- OUTSIDE RECORDS SUMMARY | 2019-02-08 10:45 | XMS REPORT ---
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 294831078 Problem Metabolic syndrome X E88.81 Active 898416025 Problem Mixed hyperlipidemia E78.2 Active 539341663 Problem Colon cancer screening Z12.11 Active 270121460 Problem Gynecologic exam normal Z01.419 Active 292364150 Problem Elevated serum GGT level R74.8 Active 389646522 Problem Weight loss R63.4 Active 236751963 Problem Breast cancer screening Z12.39 Active 475733834 Problem Emotional lability R45.86 Active 09063586 Problem Heartburn R12 Active 69380907 Problem High risk medication use Z79.899 Active 409595238 Problem Fatty liver disease, nonalcoholic K76.0 Active 284315154 Problem Hyperlipidemia E78.5 Active 19249247 Problem Pulmonary emphysema, unspecified emphysema type J43.9 Active 78375303 Problem Psoriasis L40.9 Active 5221294 Problem Essential hypertension with goal blood pressure less than 130\/80 I10 Active 45867431 Problem Psoriasis vulgaris L40.0 Active 104778331 ALLERGIES Unknown Allergies SOCIAL HISTORY No smoking Hx information available PLAN OF CARE VITAL SIGNS MEDICATIONS Medication Instructions Dosage Frequency Start Date End Date Duration Status Ultram 50 mg Orally 2 times a day 1 tablet as needed 12h 0 days Active RESULTS No Results PROCEDURES No Known procedures IMMUNIZATIONS No Known Immunizations
--- OUTSIDE RECORDS SUMMARY | 2019-02-08 10:45 | XMS REPORT ---
Author Author WILDA PATEL [facility] Address [address] [place] [address] Care Team Providers Care Top Lift Scourer Name Role Phone WILDA PATEL Unavailable PROBLEMS Type Condition ICD9-CM Code MAJ48-AG Code Onset Dates Condition Status SNOMED Code Problem Pulmonary emphysema, unspecified emphysema type J43.9 Active 23408880 Problem Heartburn R12 Active 11685135 Problem Psoriasis L40.9 Active 8570620 Problem Fatty liver disease, nonalcoholic K76.0 Active 045874563 Problem High risk medication use Z79.899 Active 398852721 Problem Emotional lability R45.86 Active 21355403 Problem Hyperlipidemia E78.5 Active 76231720 Problem Essential hypertension with goal blood pressure less than 130\/80 I10 Active 54529505 ALLERGIES Unknown Allergies SOCIAL HISTORY No smoking Hx information available PLAN OF CARE VITAL SIGNS MEDICATIONS Unknown Medications RESULTS No Results PROCEDURES No Known procedures IMMUNIZATIONS No Known Immunizations
--- OUTSIDE RECORDS SUMMARY | 2019-02-08 10:45 | XMS REPORT ---
Author Author WILDA PATEL [facility] [place] eClinicalWorks Address Unknown Phone Unavailable Care Team Providers Care Curriculum Development Manager Name Role Phone WILDA PATEL CP Unavailable Allergies, Adverse Reactions, Alerts Substance Reaction Event Type Codeine Info Not Available Drug Allergy Problems Problem Type Condition Code Onset Dates Condition Status Assessment Psoriasis L40.9 Active Assessment Anhedonia R45.84 Active Assessment High risk medication use Z79.899 Active Assessment Unspecified cirrhosis of liver K74.60 Active Problem Other psoriasis 696.1 Active Assessment Fatty liver K76.0 Active Problem Encounter for long-term (current) use of other medications V58.69 Active Assessment Elevated AFP R77.2 Active Problem Unspecified essential hypertension 401.9 Active Problem Other chronic pain 338.29 Active Problem Proteinuria 791.0 Active Problem Muscle spasm 728.85 Active Problem Other abnormal blood chemistry 790.6 Active Problem Contact dermatitis and other eczema, due to unspecified cause 692.9 Active Problem Unspecified breast screening V76.10 Active Problem Hyperlipidemia 272.4 Active Problem Thoracic or lumbosacral neuritis or radiculitis, unspecified 724.4 Active Problem Dysthymic disorder 300.4 Active Problem [...] Encounter for removal of sutures V58.32 Active Medications Medication Code System Code Instructions Start Date End Date Status Dosage Famotidine [facility] 78742439609 20 MG TAKE 1 TABLET BY MOUTH TWICE DAILY. Celexa [facility] [address]-51 40 MG Orally Once a day Jun 19, 2014 1 tablet Remeron [facility] 80716017916 30 MG take 1 tablet by Oral route before bedtime 1 time per day Prilosec [facility] 95740521516 40 MG take 1 capsule by Oral route before a meal 1 time per day Tricor [facility] [address]-43 145 mg Apr 21, 2014 1 tablet by Oral route 1 time per day Ultram [facility] [address]-52 50 MG Orally 2 times a day 1 tablet as needed Mirtazapine [facility] [address]-15 30 MG Orally Once a day 1 tablet before bedtime in the evening Cyclobenzaprine HCl [facility] [address]-20 10 MG Orally 2 times a day November 17, 2014 Jul 20, 2015 1 tablet-must last 6 months metformin [facility] 0 500 mg Jun 30, 2014 take 1 tablet by Oral route 2 times per day with morning and evening meals Atorvastatin Calcium [facility] [address]-34 40 MG Orally Once a day 1 tablet Metoprolol Tartrate [facility] 67894279218 50 MG take 1 tablet by Oral route 1 time per day with meals ER Metformin HCl [facility] 18578600759 500 MG take 1 tablet by Oral route 2 times per day with morning and evening meals Lisinopril [facility] 34331905856 10 MG 1 tablet by Oral route 1 time per day Claritin [facility] [address]-59 10 MG Orally Once a day January 21, 2015 May 21, 2015 1 tablet Proventil HFA [facility] 42601251908 108 (90 Base) MCG/ACT INHALE 2 PUFFS EVERY 6 HOURS NEEDED FOR COUGH / WHEEZING Colace [facility] [address]-97 100 MG Orally 2 times a day Apr 21, 2015 Jun 20, 2015 1 capsule as needed Clobetasol Propionate [facility] [address]-40 0.05 % Externally Twice a day May 13, 2015 May 27, 2015 1 application to affected area Pepcid [facility] 50666807384 20 MG 1 tablet by Oral route 2 times per day Multivitamins [facility] [address] Orally not defined Procedures Procedure Coding System Code Date Office Visit, Est Pt., Level 4 CPT-4 20296 May 13, 2015 Vital Signs Date/Time: May 13, 2015 Temperature 97.7 F Weight 185.4 lbs Height 63 in BMI 32.84 Index Blood Pressure Diastolic 84 mmHg Blood Pressure Systolic 122 mmHg Cardiac Monitoring Heart Rate 92 bpm Results No Known Results Summary Purpose eClinicalWorks Submission
--- OUTSIDE RECORDS SUMMARY | 2019-02-08 10:45 | XMS REPORT ---
Author Author WILDA PATEL Organization eClinicalWorks Address Unknown Phone Unavailable Care Team Providers Care Grind Operator Name Role Phone WILDA PATEL CP Unavailable Allergies No Known Allergies Problems No Known Problems Medications Medication Code System Code Instructions Start Date End Date Status Dosage Cyclobenzaprine HCl [facility] [address]-92 10 MG Orally 2 times a day November 17, 2014 1 tablet-must last 6 months [facility] [address]-36 50 MG Orally 2 times a day 1 tablet as needed Atorvastatin Calcium [facility] [address]-30 40 MG Orally Once a day 1 tablet Results No Known Results Summary Purpose eClinicalWorks Submission
--- OUTSIDE RECORDS SUMMARY | 2019-02-08 10:45 | XMS REPORT ---
Author Author JORGE WILDA [facility] Address [address] [place] [address] Care Team Providers Care Private Branch Exchange Repairer Name Role Phone WILDA PATEL Unavailable PROBLEMS Type Condition ICD9-CM Code DRK01-VU Code Onset Dates Condition Status SNOMED Code Problem Emotional lability R45.86 Active 20377667 Problem Heartburn R12 Active 64494012 Problem High risk medication use Z79.899 Active 684911391 Problem Colon cancer screening Z12.11 Active 245811750 Problem Pulmonary emphysema, unspecified emphysema type J43.9 Active 67769382 Problem Mixed hyperlipidemia E78.2 Active 318780283 Problem Fatty liver disease, nonalcoholic K76.0 Active 666589939 Problem Colonoscopy refused Z53.20 Active 515037673 Problem Lumbago with sciatica, left side M54.42 Active 660996762 Problem Other chronic pain G89.29 Active 71133308 Problem Serum calcium elevated E83.52 Active 87947092 Problem Urinary frequency R35.0 Active 641126980 Problem Psoriasis L40.9 Active 4253701 Problem Hyperlipidemia E78.5 Active 18778145 Problem Essential hypertension with goal blood pressure less than 130\/80 I10 Active 36952408 Problem Dental caries K02.9 Active 93335947 Problem Lumbago with sciatica, right side M54.41 Active 404345382754397 Problem Substance abuse F19.10 Active 66617635 Problem Hematuria, unspecified type R31.9 Active 37974687 Problem Metabolic syndrome X E88.81 Active 418049481 Problem Elevated serum GGT level R74.8 Active 622125921 Problem Psoriasis vulgaris L40.0 Active 444296775 Problem Dysthymia F34.1 Active 15216957 Problem Breast cancer screening Z12.39 Active 989231771 Problem Weight loss R63.4 Active 220252606 Problem 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9 ; Dental caries K02.9 ; Urinary frequency R35.0 and Substance abuse F19.10 [facility] [address] [id number], [place] [address] Sep, [facility] [address] [id number], [place] 799827658 Aug, [facility] [address] [id number], [place] [id number] Aug, [facility] [address] [id number], [place] [id number] Jul, [facility] [address] [id number], [place] [id number] Jun, [facility] [address] [id number], [place] 228955418 Jun, Hematuria, unspecified type R31.9 [facility] [address] [id number], [place] [id number] May, Lumbago with sciatica, left side M54.42 and Hematuria, unspecified type R31.9 [facility] [address] [id number], [place] 368[address]235 May, Hematuria, unspecified type R31.[address] [facility] [address] [id number], [place] 794301858 Apr, High risk medication use Z79.899 ; Lumbago with sciatica, left side M54.42 ; Lumbago with sciatica, right side M54.41 ; Other chronic pain G89.29 ; Emotional lability R45.86 and Colonoscopy refused Z53.[address] [facility] [address] [id number], [place] [id number] Feb, [facility] [address] [id number], [place] 626424657 Feb, [facility] [address] [facility] [id number] [address] Jan, [facility] [address] [id number], [place] [id number] Jan, Psoriasis vulgaris L40.[address] [facility] [address] [id number], [place] [id number] Jan, High risk medication use Z79.899 [facility] [address] [id number], [place] 206311273 Dec, Psoriasis vulgaris L40.0 [facility] [address] [id number], [place] 407[address]3620 Oct, Mixed hyperlipidemia E78.2 and High risk medication use Z79.[address] [facility] [address] [id number], [place] 167932371 Oct, [facility] [address] [id number], [place] [id number] Oct, [facility] [address] [id number], [place] 261080672 Oct, Hyperlipidemia E78.5 and Weight loss R63.[address] [facility] [address] [id number], [place] 514697198 Oct, Gynecologic exam normal Z01.419 ; Breast cancer screening Z12.39 ; Weight loss R63.4 and Colon cancer screening Z12.[address] [facility] [address] [id number] [place] [id number] Jul, [facility] [address] [id number], [place] 203277237 Jul, High risk medication use Z79.[address] [facility] [address] [id number], [place] 561111281 Jul, Metabolic syndrome X E88.81 ; Elevated serum GGT level R74.8 ; Dysthymia F34.1 and 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 [facility] [address] [id number], [place] [id number] Jun, [facility] [address] [id number], [place] 780884862 May, [facility] [address] [address] [id number], [place] 405251545 May, [facility] [address] [address] [id number], [place] 336974752 May, High risk medication use Z79.[address] [facility] [address] [id number], [place] 244494874 May, [facility] [address] [address] [id number], [place] 569397408 May, Psoriasis vulgaris L40.0 and Other senior care (current) drug therapy Z79.[address] [facility] [address] [id number], [place] 248068951 Mar, Hyperlipidemia E78.[address] [facility] [address] [id number], [place] 767511370 Mar, [facility] [address] [id number], [place] 860092554 Mar, [facility] [address] [address] [id number], [place] 552162163 Mar, Fatty liver disease, nonalcoholic K76.0 and Hyperlipidemia E78.[address] [facility] [address] [id number] [place] [id number] Mar, [facility] [address] [address] [id number] [place] [id number] Mar, Fatty liver disease, nonalcoholic K76.0 ; Psoriasis L40.9 and Hyperlipidemia E78.[address] [facility] [address] [id number] [place] [id number] Mar, [facility] [address] [id number][place] 214680174 Feb, [facility] [address] [id number], [place] 486080612 Feb, [facility] [address] [address] [id number], [place] 342904155 Jan, [facility] [address] [id number], [place] 706050641 Dec, [facility] [address] [id number], [place] 578500472 Dec, [facility] [address] [facility] [id number], [place] [address] November, [facility] [address] [id number], [place] [id number] November, [facility] [address] [id number], [place] 775243983 Oct, [facility] [address] [id number], [place] 805727892 Oct, Fatty liver disease, nonalcoholic K76.0 and Encounter for immunization Z23 [facility] [address] [facility] [id number], [place] [address] Oct, [facility] [address] [address] [id number], [place] 410258202 Sep, Fatty liver disease, nonalcoholic K76.[address] [facility] [address] [id number], [place] 400989134 Sep, Fatty liver disease, nonalcoholic K76.0 ; High risk medication use Z79.899 ; Emotional lability R45.86 ; Hyperlipidemia E78.5 and Essential hypertension with goal blood pressure less than 130\/[address] [facility] [address] [facility] [id number] [place] [address] Sep, [facility] [address] [id number], [place] [id number] Aug, Mixed hyperlipidemia E78.2 and Heartburn R12 [facility] [address] [id number], [place] 583431593 Aug, High risk medication use Z79.899 ; Emotional lability R45.86 ; Pulmonary emphysema, unspecified emphysema type J43.9 and Heartburn R12 [facility] [address] [id number], [place] [id number] Jul, [facility] [address] [id number], [place] 238372921 Jul, [facility] [address] [id number], [place] 864369798 Jun, [facility] [address] [id number], [place] 579579251 May, Right upper quadrant abdominal pain R10.11 and Fatty liver K76.0 [facility] [address] [id number], [place] 283087934 Apr, Elevated AFP R77.2 ; Fatty liver K76.0 ; Unspecified cirrhosis of liver K74.60 ; High risk medication use Z79.899 ; Anhedonia R45.84 and Psoriasis L40.9 [facility] [address] [id number], [place] 200987809 Apr, [facility] [address] [id number], [place] 187519896 Apr, Elevated liver enzymes R74.8 [facility] [address] [id number], [place] 445884315 Apr, Abdominal pain, left lower quadrant R10.32 ; Mixed hyperlipidemia E78.2 and Hyperlipidemia 272.4 [facility] [address] [id number], [place] 022751845 09 Apr, 2015 Encounter for routine gynecological examination Z01.419 and Breast cancer screening Z12.39 [facility] [address] [id number], [place] 267218637 Apr, Abdominal pain, left lower quadrant R10.32 ; Mixed hyperlipidemia E78.2 and Lumbago M54.5 [facility] [address] [id number], [place] 727534896 Mar, Psoriasis 696.1 ; Hyperlipidemia 272.4 and Chronic pain 338.29 [facility] [address] [place] [address] AVE [id number], [place] 748958300 Mar, [facility] [address] [id number], [place] 902130031 Mar, [facility] [address] [place] [address] AVE [id number], [place] 402620943 Mar, Rash and nonspecific skin eruption 782.1 [facility] [address] [place] [address] AVE [id number], [place] 456608119 Feb, Dermatitis 692.9 and Thoracic or lumbosacral neuritis or radiculitis, unspecified 724.4 [facility] [address] [id number], [place] 218477162 Feb, Dermatitis 692.9 and Follow-up examination V67.9 [facility] [address] [id number], [place] 113858519 Jan, [facility] [address] [id number], [place] 195002578 Jan, Allergic dermatitis 692.9 [facility] [address] [id number], [place] 659251565 Jan, Rash and nonspecific skin eruption 782.[address] [facility] [address] [id number] [place] [id number] Jan, [facility] [address] [id number], [place] 662960296 Jan, Dermatitis 692.9 and Environmental allergies V15.[address] [facility] [address] [id number], [place] 352685448 Dec, [facility] [address] [id number], [place] 958759623 Dec, [facility] [address] [id number], [place] 453738695 Dec, [facility] [address] [id number], [place] [id number] November, [facility] [address] [id number], [place] 448466922 November, Muscle spasm 728.85 [facility] [address]005[place], [place] [address] Oct, [facility] [address] [id number], [place] [address] Oct, [facility] [address]00565100[place], [place] [address] Sep, [facility] [address] [id number], [place] [address] Sep, [facility] [address]00565100[place], [place] [address] Sep, [facility] [id number] [place] [address] Sep, [facility] [address] [id number], [place] [address] Sep, [facility] [id number] [place] [address] Sep, [facility] [place] [facility] [address] [id number] [place] [address] 16 Sep, 2014 [facility] [place] [facility] [address] [id number] [place] [address] 16 Sep, 2014 [facility] [place] [facility] [address] [id number] [place] [address] Aug, [facility] [place] [facility] [address] [id number] [place] [address] Aug, [facility] [place] [facility] [address] [id number] [place] [address] Jul, [facility] [place] [facility] [address] [id number] [place] [address] Jul, [facility] [place] [facility] [address] [id number] [place] [address] Jul, [facility] [place] [facility] [address] [id number] [place] [address] Jul, [facility] [place] [facility] [address] [id number] [place] [address] Jul, [facility] [place] [facility] [address] [id number] [place] [address] Jul, [facility] [place] [facility] [address] [id number] [place] [address] 18 Jun, 2014 [facility] [place] [facility] [address] [id number], [place] [address] Jun, [facility] [place] [facility] [address] [id number] [place] [address] 15 Jun, 2014 [facility] [place] [facility] [address] [id number] [place] [address] 15 Jun, 2014 [facility] [place] [facility] [address] [id number] [place] [address] 09 Jun, 2014 [facility] [place] [facility] [address] [id number] [place] [address] Jun, [facility] [place] [facility] [address] [id number] [place] [address] Jun, [facility] [place] [facility] [address] [id number] [place] [address] Jun, [facility] [place] [facility] [address] [id number] [place] [address] May, [facility] [place] [facility] [address] [id number] [place] [address] May, [facility] [place] [facility] [address] [id number] [place] [address] May, [facility] [place] [facility] [address] [id number] [place] [address] May, [facility] [place] [facility] [address] [id number] [place] [address] May, [facility] [place] [facility] [address] [id number] [place] [address] Apr, [facility] [place] [facility] [address] [id number] [place] [address] Apr, [facility] [place] [facility] [address] [facility] [id number] [place] [address] Apr, [facility] [place] [facility] [address] [id number] [place] [address] Apr, [facility] [place] [facility] [address] [id number] [place] [address] Apr, [facility] [place] [facility] [address] [id number] [place] [address] Apr, [facility] [place] [facility] [address] [id number] [place] [address] Apr, [facility] [place] [facility] [address] [id number] [place] [address] Apr, [facility] [place] [facility] [address] [id number] [place] [address] 20 Apr, 2014 [facility] [place] [facility] [address] [id number] [place] [address] 20 Apr, 2014 [facility] [place] [facility] [address] [id number] [place] [address] 17 Apr, 2014 [facility] [place] [facility] [address] [id number] [place] [address] 17 Apr, 2014 [facility] [place] [facility] [address] [id number] [place] [address] 16 Apr, 2014 [facility] [place] [facility] [address] [id number] [place] [address] 16 Apr, 2014 [facility] [place] [facility] [address] [id number] [place] [address] 15 Apr, 2014 [facility] [place] [facility] [address] [id number] [place] [address] 15 Apr, 2014 [facility] [place] [facility] [address] [id number] [place] [address] 14 Apr, 2014 [facility] [place] [facility] [address] [id number] [place] [address] 14 Apr, 2014 [facility] [place] [facility] [address] [id number] [place] [address] 13 Apr, 2014 [facility] [place] [facility] [address] [id number] [place] [address] 13 Apr, 2014 [facility] [place] [facility] [address] [id number] [place] [address] 06 Apr, 2014 [facility] [place] [facility] [address] [id number] [place] [address] 06 Apr, 2014 [facility] [place] [facility] [address] [id number] [place] [address] 05 Apr, 2014 [facility] [place] [facility] [address] [id number] [place] [address] Apr, [facility] [place] [facility] [address] [id number] [place] [address] Apr, [facility] [place] [facility] [address] [id number] [place] [address] Apr, [facility] [place] [facility] [address] [id number] [place] [address] Mar, [facility] [place] [facility] [address] [id number] [place] [address] Mar, [facility] [place] [facility] [address] [id number] [place] [address] Feb, [facility] [place] [facility] [address] [id number] [place] [address] Feb, [facility] [place] [facility] [address] [id number] [place] [address] Feb, [facility] [place] [facility] [address] [id number] [place] [address] Feb, [facility] [place] [facility] [address] [id number] [place] [address] Jan, [facility] [place] [facility] [address] [id number] [place] [address] Jan, [facility] [place] [facility] [address] [id number] [place] [address] Jan, [facility] [place] [facility] [address] [id number] [place] [address] Jan, [facility] [place] [facility] [address] [id number] [place] [address] Jan, [facility] [place] [facility] [address] [id number] [place] [address] Jan, [facility] [place] [facility] [address] [id number] [place] [address] Jan, [facility] [place] [facility] [address] [id number] [place] [address] Jan, [facility] [place] [facility] [address] [id number] [place] [address] Jan, [facility] [place] [facility] [address] [id number] [place] [address] Jan, [facility] [place] [facility] [address] [id number] [place] [address] Jan, [facility] [place] [facility] [address] [id number] [place] [address] Dec, [facility] [place] [facility] [address] [id number] [place] [address] Dec, [facility] [place] [facility] [address] [id number] [place] [address] Dec, [facility] [place] [facility] [address] [id number] [place] [address] Dec, [facility] [address] [id number] [place] [address] November, [facility] [place] [facility] [address] [id number] [place] [address] November, [facility] [address] [id number] [place] [address] November, [facility] [place] [facility] [address] [id number] [place] [address] November, [facility] [place] [facility] [address] [id number] [place] [address] November, [facility] [place] [facility] [address] [id number] [place] [address] November, [facility] [place] [facility] [address] [id number] [place] [address] November, [facility] [place] [facility] [address] [id number] [place] [address] November, [facility] [place] [facility] [address] [id number] [place] [address] November, [facility] [place] [facility] [address] [id number] [place] [address] November, [facility] [place] [facility] [address] [id number] [place] [address] November, [facility] [place] [facility] [address] [id number] [place] [address] Oct, [facility] [place] [facility] [address] [id number] [place] [address] Oct, [facility] [place] [facility] [address] [id number] [place] [address] Oct, [facility] [place] [facility] [address] [id number] [place] [address] Oct, [facility] [place] [facility] [address] [id number] [place] [address] Oct, [facility] [place] [facility] [address] [id number] [place] [address] Oct, [facility] [place] [facility] [address] [id number] [place] [address] Sep, [facility] [place] [facility] [address] [id number] [place] [address] Sep, [facility] [place] [facility] [address] [id number] [place] [address] Sep, [facility] [place] [facility] [address] [id number] [place] [address] Sep, [facility] [place] [facility] [address] [id number] [place] [address] Sep, [facility] [place] [facility] [address] [id number] [place] [address] 18 Sep, 2013 [facility] [place] [facility] [address] [id number], [place] [address] Sep, [facility] [place] [facility] [address] [id number] [place] [address] Sep, [facility] [place] [facility] [address] [id number] [place] [address] Sep, [facility] [place] [facility] [address] [id number] [place] [address] Sep, [facility] [place] [facility] [address] [id number] [place] [address] Sep, [facility] [place] [facility] [address] [id number] [place] [address] Aug, [facility] [place] [facility] [address] [id number] [place] [address] Aug, [facility] [place] [facility] [address] [id number] [place] [address] Aug, [facility] [place] [facility] [address] [id number] [place] [address] Aug, [facility] [place] [facility] [address] [id number] [place] [address] Jul, [facility] [place] [facility] [address] [facility] [id number] [place] [address] Jul, [facility] [place] [facility] [address] [id number] [place] [address] Jul, [facility] [place] [facility] [address] [id number] [place] [address] Jul, [facility] [place] [facility] [address] [id number] [place] [address] Jul, [facility] [place] [facility] [address] [id number] [place] [address] Jul, [facility] [place] [facility] [address] [id number] [place] [address] Jul, [facility] [place] [facility] [address] [id number] [place] [address] Jul, [facility] [address] [id number] [place] [address] Jul, [facility] [address] [id number] [place] [address] Jul, [facility] [address] [id number] [place] [address] Jul, [facility] [address] [id number] [place] [address] Jul, [facility] [address] [id number] [place] [address] Jul, [facility] [address] [id number] [place] [address] Jun, [facility] [address] [id number] [place] [address] Jun, [facility] [address] [id number] [place] [address] Jun, [facility] [address] [id number] [place] [address] Jun, [facility] [address] [id number] [place] [address] Jun, [facility] [address] [id number] [place] [address] Jun, [facility] [place] [facility] [address] [id number] [place] [address] Jun, [facility] [place] [facility] [address] [id number] [place] [address] Jun, [facility] [facility] [address] [id number] [place] [address] Jun, [facility] [place] [facility] [address] [id number] [place] [address] Jun, [facility] [address] [id number] [place] [address] Jun, [facility] [place] [facility] [address] [id number] [place] [address] Jun, [facility] [place] [facility] [address] [id number] [place] [address] Jun, [facility] [place] [facility] [address] [id number] [place] [address] Jun, [facility] [place] [facility] [address] [id number] [place] [address] Jun, [facility] [place] [facility] [address] [id number] [place] [address] Jun, [facility] [place] [facility] [address] [id number] [place] [address] Jun, [facility] [place] [facility] [address] [id number] [place] [address] Jun, [facility] [place] [facility] [address] [id number] [place] [address] Jun, [facility] [place] [facility] [address] [id number] [place] [address] Jun, [facility] [place] [facility] [address] [id number], [place] [address] Jun, [facility] [place] [facility] [address] [id number] [address] Jun, [facility] [place] [facility] [address] [id number] [place] [address] Jun, [facility] [place] [facility] [address] [id number], [place] [address] May, [facility] [place] [facility] [address] [id number] [place] [address] May, [facility] [place] [facility] [address] [id number], [place] [address] Apr, [facility] [address] [id number] [id number] Mar, [facility] [address]65[address] [address] Feb, [facility] [address] [address] Feb, [facility] [address] [address] Jan, [facility] [address] [address] Jan, [facility] [address] [address] November, [facility] [address] [address] November, [facility] [address] [id number], [place] [address] Oct, [facility] [address], [place] [address] Oct, [facility] [address] [facility] [id number] [id number] November, [facility] [address] [id number], [place] [address] May, [facility] [address] [id number], [place] [address] Feb, IMMUNIZATIONS No Known Immunizations SOCIAL HISTORY Never Assessed REASON FOR VISIT Lab (walk-in)--dominic PLAN OF CARE VITAL SIGNS MEDICATIONS Unknown Medications RESULTS No Results PROCEDURES Procedure Date Ordered Result Body Site No Charge Jun 14, 2017 URINALYSIS, AUTO, W/O SCOPE Jun 14, 2017 URINE CULTURE/COLONY COUNT Jun 14, 2017 INSTRUCTIONS MEDICATIONS ADMINISTERED No Known Medications MEDICAL (GENERAL) HISTORY Type Description Date Medical History hypertension Medical History gastroesophageal reflux disease (GERD) Medical History hyperlipidemia Medical History obesity Medical History chronic pain Medical History psoriasis Medical History abnormal liver enzymes, fatty liver disease Medical History abdominal tumor Medical History anxiety, depression Medical History CT abdomen at [facility] 09-14-16 shows a ventral hernia and fatty liver disease Medical History Pt no-showed colonoscopy Medical History no showed mammogram Surgical History tonsillectomy Surgical History appendectomy 03/2011 Surgical History hysterectomy, total with bilateral salpingo-oophorectomy (BSO) 03/2011 Surgical History large abdominal tumor/uterus removed 2010 Hospitalization History past surgeries
--- OUTSIDE RECORDS SUMMARY | 2019-02-08 10:45 | XMS REPORT ---
Author Author WILDA PATEL Organization [employer] Address Unknown Phone Unavailable Care Team Providers Care Filing Machine Operator Name Role Phone WILDA PATEL CP Unavailable Allergies No Known Allergies Problems Problem Type Condition Code Onset Dates Condition Status Problem Hyperlipidemia E78.5 Active Problem Essential hypertension with goal blood pressure less than 130\/80 I10 Active Problem Fatty liver disease, nonalcoholic K76.0 Active Problem Pulmonary emphysema, unspecified emphysema type J43.9 Active Problem Heartburn R12 Active Problem High risk medication use Z79.899 Active Problem Emotional lability R45.86 Active Medications No Known Medications Results No Known Results Summary Purpose [employer] Submission
--- OUTSIDE RECORDS SUMMARY | 2019-02-08 10:45 | XMS REPORT ---
Author Author WILDA PATEL Organization [employer] Address Unknown Phone Unavailable Care Team Providers Care Visual Presentation Manager Name Role Phone WILDA PATEL Unavailable Allergies No Known Allergies Problems No Known Problems Medications No Known Medications Results No Known Results Summary Purpose [employer] Submission
--- OUTSIDE RECORDS SUMMARY | 2019-02-08 10:46 | XMS REPORT ---
Author Author WILDA PATEL Organization [employer] Address Unknown Phone Unavailable Care Team Providers Care Memorandum Statement Clerk Name Role Phone WILDA PATEL CP Unavailable Allergies No Known Allergies Problems Problem Type Condition Code Onset Dates Condition Status Assessment Mixed hyperlipidemia E78.2 Active Assessment Hyperlipidemia 272.4 Active Assessment Abdominal pain, left lower quadrant R10.32 Active Medications No Known Medications Procedures Procedure Coding System Code Date GLYCATED HEMOGLOBIN TEST CPT-4 56896 May 05, 2015 COMPLETE CBC W/AUTO DIFF WBC CPT-4 06545 May 05, 2015 ALPHA-FETOPROTEIN, SERUM CPT-4 18574 May 05, 2015 LIPID PANEL CPT-4 45130 May 05, 2015 PROTHROMBIN TIME CPT-4 00869 May 05, 2015 VENIPUNCT, ROUTINE* CPT-4 11286 May 05, 2015 COMPREHEN METABOLIC PANEL CPT-4 99470 May 05, 2015 Results Name Result Date Reference Range Unit Abnormality Flag Mitochondrial (M2) Antibody ROUTINE VENIPUNCTURE AFP TUMOR MARKER, SERUM Summary Purpose [employer] Submission
--- OUTSIDE RECORDS SUMMARY | 2019-02-08 10:46 | XMS REPORT ---
Author Author WILDA PATEL Organization [employer] Address Unknown Phone Unavailable Care Team Providers Care Insemination Worker Name Role Phone WILDA PATEL CP Unavailable [...]
--- OUTSIDE RECORDS SUMMARY | 2019-02-08 10:46 | XMS REPORT ---
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 Active 430955879 Problem Elevated serum GGT level R74.8 Active 311977230 Problem Dysthymia F34.1 Active 72801094 Problem Mixed hyperlipidemia E78.2 Active 426684399 Problem Gynecologic exam normal Z01.419 Active 214846901 Problem Colon cancer screening Z12.11 Active 683370159 Problem Metabolic syndrome X E88.81 Active 862394245 Problem Breast cancer screening Z12.39 Active 134228940 Problem Weight loss R63.4 Active 620474516 Problem Pulmonary emphysema, unspecified emphysema type J43.9 Active 46697711 Problem Emotional lability R45.86 Active 35935153 Problem Heartburn R12 Active 91550664 Problem Hyperlipidemia E78.5 Active 52321651 Problem Fatty liver disease, nonalcoholic K76.0 Active 221012302 Problem High risk medication use Z79.899 Active 810236453 Problem Psoriasis L40.9 Active 1740121 Problem Essential hypertension with goal blood pressure less than 130\/80 I10 Active 27345519 Problem Psoriasis vulgaris L40.0 Active 151782912 ALLERGIES Unknown Allergies SOCIAL HISTORY No smoking Hx information available PLAN OF CARE VITAL SIGNS MEDICATIONS Unknown Medications RESULTS No Results PROCEDURES No Known procedures IMMUNIZATIONS No Known Immunizations
--- OUTSIDE RECORDS SUMMARY | 2019-02-08 10:46 | XMS REPORT ---
Author Author WILDA PATEL [facility] Address [address] [place] [address] Care Team Providers Care Agricultural Research Technologist Name Role Phone RYANESTIVENWILDA Unavailable PROBLEMS Type Condition ICD9-CM Code ROX22-LF Code Onset Dates Condition Status SNOMED Code Problem Heartburn R12 Active 99640738 Problem Emotional lability R45.86 Active 33390299 Problem Pulmonary emphysema, unspecified emphysema type J43.9 Active 90513515 Problem Psoriasis vulgaris L40.0 Active 891086927 Problem Psoriasis L40.9 Active 2599885 Problem Essential hypertension with goal blood pressure less than 130\/80 I10 Active 61585533 Problem High risk medication use Z79.899 Active 787615127 Problem Fatty liver disease, nonalcoholic K76.0 Active 321999823 Problem Hyperlipidemia E78.5 Active 13915025 ALLERGIES Unknown Allergies SOCIAL HISTORY No smoking Hx information available PLAN OF CARE VITAL SIGNS MEDICATIONS Medication Instructions Dosage Frequency Start Date End Date Duration Status Omeprazole 20 mg Orally Once a day before a meal 1 capsule Active RESULTS No Results PROCEDURES No Known procedures IMMUNIZATIONS No Known Immunizations
--- OUTSIDE RECORDS SUMMARY | 2019-02-08 10:46 | XMS REPORT ---
Author Author WILDA PATEL Organization [employer] Address Unknown Phone Unavailable Care Team Providers Care Landscaping And Groundskeeping Laborer Name Role Phone WILDA PATEL CP Unavailable [...]
--- OUTSIDE RECORDS SUMMARY | 2019-02-08 10:46 | XMS REPORT ---
Author Author WILDA PATEL [facility] Address [address] [place] [address] Care Team Providers Care Freelance Photographer Name Role Phone RYANESTIVENWILDA Unavailable PROBLEMS Type Condition ICD9-CM Code IZT03-CS Code Onset Dates Condition Status SNOMED Code Problem Pulmonary emphysema, unspecified emphysema type J43.9 Active 17279834 Problem Heartburn R12 Active 85535703 Problem Psoriasis L40.9 Active 4647872 Problem Fatty liver disease, nonalcoholic K76.0 Active 097174647 Problem High risk medication use Z79.899 Active 885473800 Problem Emotional lability R45.86 Active 57533726 Problem Hyperlipidemia E78.5 Active 81507693 Problem Essential hypertension with goal blood pressure less than 130\/80 I10 Active 52230997 ALLERGIES Unknown Allergies SOCIAL HISTORY No smoking Hx information available PLAN OF CARE VITAL SIGNS MEDICATIONS Medication Instructions Dosage Frequency Start Date End Date Duration Status Ultram 50 mg Orally 2 times a day 1 tablet as needed 12h Active RESULTS No Results PROCEDURES No Known procedures IMMUNIZATIONS No Known Immunizations
--- OUTSIDE RECORDS SUMMARY | 2019-02-08 10:46 | XMS REPORT ---
Author Author JORGE WILDA [facility] Address [address] [place] [address] Care Team Providers Care Web Page Designer Name Role Phone WILDA PATEL Unavailable PROBLEMS Type Condition ICD9-CM Code YUW16-IS Code Onset Dates Condition Status SNOMED Code Problem Emotional lability R45.86 Active 02885690 Problem Heartburn R12 Active 47585981 Problem High risk medication use Z79.899 Active 640789212 Problem Colon cancer screening Z12.11 Active 732952164 Problem Pulmonary emphysema, unspecified emphysema type J43.9 Active 49240085 Problem Mixed hyperlipidemia E78.2 Active 785723275 Problem Fatty liver disease, nonalcoholic K76.0 Active 189125505 Problem Colonoscopy refused Z53.20 Active 853526104 Problem Lumbago with sciatica, left side M54.42 Active 643800167 Problem Other chronic pain G89.29 Active 93862421 Problem Serum calcium elevated E83.52 Active 50836123 Problem Urinary frequency R35.0 Active 412815277 Problem Psoriasis L40.9 Active 7968784 Problem Hyperlipidemia E78.5 Active 18896976 Problem Essential hypertension with goal blood pressure less than 130\/80 I10 Active 52442819 Problem Dental caries K02.9 Active 31670296 Problem Lumbago with sciatica, right side M54.41 Active 451747097602846 Problem Substance abuse F19.10 Active 18652348 Problem Hematuria, unspecified type R31.9 Active 28533336 Problem Metabolic syndrome X E88.81 Active 924447216 Problem Elevated serum GGT level R74.8 Active 800767816 Problem Psoriasis vulgaris L40.0 Active 895141052 Problem Dysthymia F34.1 Active 90093606 Problem Breast cancer screening Z12.39 Active 859057609 Problem Weight loss R63.4 Active 019573476 Problem 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 Active 885585478 Problem Gynecologic exam normal Z01.419 Active 307739231 ALLERGIES No Information ENCOUNTERS Encounter Location Date Diagnosis [facility] [address] [id number][place] [id number] Jan, [facility] [address] [address] [id number][place] [address] November, Serum calcium elevated E83.52 and Elevated serum GGT level R74.8 [facility] [address] [id number], [place] [id number] November, Fatty liver disease, nonalcoholic K76.[address] [facility] [address] [id number][place] [address] November, High risk medication use Z79.899 ; Hematuria, unspecified type R31.9 ; Dental caries K02.9 ; Urinary frequency R35.0 and Substance abuse F19.10 [facility] [address] [id number][place] [address] Sep, [facility] [address] [id number], [place] [id number] Aug, [facility] [address] [id number], [place] [address] Aug, [facility] [address] [id number], [place] [address]37[address] Jul, [facility] [address] [id number], [place] [address] Jun, [facility] [address] [id number], [place] [address]6482 Jun, Hematuria, unspecified type R31.9 [facility] [address] [id number], [place] [address] May, Lumbago with sciatica, left side M54.42 and Hematuria, unspecified type R31.9 [facility] [address] [id number], [place] [address] May, Hematuria, unspecified type R31.[address] [facility] [address] [id number], [place] [address]79128 Apr, High risk medication use Z79.899 ; Lumbago with sciatica, left side M54.42 ; Lumbago with sciatica, right side M54.41 ; Other chronic pain G89.29 ; Emotional lability R45.86 and Colonoscopy refused Z53.[address] [facility] [address] [id number], [place] [address] Feb, [facility] [address] [id number], [place] [address]45[address] Feb, [facility] [address] [facility] [id number], [place] [address] Jan, [facility] [address] [id number], [place] [address]16[place] Jan, Psoriasis vulgaris L40.[address] [facility] [address] [id number], [place] [address]36[address] Jan, High risk medication use Z79.899 [facility] [address] [id number], [place] [address] Dec, Psoriasis vulgaris L40.0 [facility] [address] [id number], [place] 799637645 Oct, Mixed hyperlipidemia E78.2 and High risk medication use Z79.[address] [facility] [address] [id number], [place] [address]09[address] Oct, [facility] [address] [id number], [place] [address] Oct, [facility] [address] [id number], [place] [address]98[address] Oct, Hyperlipidemia E78.5 and Weight loss R63.[address] [facility] [address] [id number], [place] 6270[address]648 Oct, Gynecologic exam normal Z01.419 ; Breast cancer screening Z12.39 ; Weight loss R63.4 and Colon cancer screening Z12.[address] [facility] [address] [id number] [place] [address] Jul, [facility] [address] [id number], [place] 98[address]447[address] Jul, High risk medication use Z79.[address] [facility] [address] [id number], [place] 717335920 Jul, Metabolic syndrome X E88.81 ; Elevated serum GGT level R74.8 ; Dysthymia F34.1 and 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 [facility] [address] [id number], [place] 696136[address] Jun, [facility] [address] [id number], [place] 234708859 May, [facility] [address] [id number], [place] 346508858 May, [facility] [address] [id number], [place] 454322145 May, High risk medication use Z79.[address] [facility] [address] [id number], [place] [address] May, [facility] [address] [id number], [place] [address]48434683 May, Psoriasis vulgaris L40.0 and Other retirement (current) drug therapy Z79.[address] [facility] [address] [id number], [place] [address]78[address] Mar, Hyperlipidemia E78.[address] [facility] [address] [id number], [place] 16224[address] Mar, [facility] [address] [id number], [place] [address]885387[address] Mar, [facility] [address] [id number], [place] 834832248 Mar, Fatty liver disease, nonalcoholic K76.0 and Hyperlipidemia E78.[address] [facility] [address] [id number] [place] [address] Mar, [facility] [address] [id number] [place] [address] Mar, Fatty liver disease, nonalcoholic K76.0 ; Psoriasis L40.9 and Hyperlipidemia E78.[address] [facility] [address] [id number] [place] [address] Mar, [facility] [address] [id number] [place] [id number] Feb, [facility] [address] [id number], [place] 931675[address] Feb, [facility] [address] [id number], [place] 985874535 Jan, [facility] [address] [id number], [place] [address]64876[address] Dec, [facility] [address] [id number], [place] [address]27423035 Dec, [facility] [address] [facility] [id number], [place] [address] November, [facility] [address] [id number], [place] 058039994 November, [facility] [address] [id number], [place] [address]405[address] Oct, [facility] [address] [id number], [place] 487661535 Oct, Fatty liver disease, nonalcoholic K76.0 and Encounter for immunization Z23 [facility] [address] [facility] [id number], [place] [address] Oct, [facility] [address] [id number], [place] 058076331 Sep, Fatty liver disease, nonalcoholic K76.[address] [facility] [address] [id number], [place] 855666000 Sep, Fatty liver disease, nonalcoholic K76.0 ; High risk medication use Z79.899 ; Emotional lability R45.86 ; Hyperlipidemia E78.5 and Essential hypertension with goal blood pressure less than 130\/80 I10 [facility] [address] [facility] [id number] [place] [address] Sep, [facility] [address] [id number], [place] 563633223 Aug, Mixed hyperlipidemia E78.2 and Heartburn R12 [facility] [address] [id number], [place] [address]2453555 Aug, High risk medication use Z79.899 ; Emotional lability R45.86 ; Pulmonary emphysema, unspecified emphysema type J43.9 and Heartburn R12 [facility] [address] [id number], [place] 841010273 Jul, [facility] [address] [id number], [place] 176887358 Jul, [facility] [address] [id number], [place] [address]2420096 Jun, [facility] [address] [id number], [place] 69[address]1056 May, Right upper quadrant abdominal pain R10.11 and Fatty liver K76.0 [facility] [address] [id number], [place] [address]193837 Apr, Elevated AFP R77.2 ; Fatty liver K76.0 ; Unspecified cirrhosis of liver K74.60 ; High risk medication use Z79.899 ; Anhedonia R45.84 and Psoriasis L40.9 [facility] [address] [id number], [place] [id number] Apr, [facility] [address] [id number], [place] 746450875 Apr, Elevated liver enzymes R74.8 [facility] [address] [id number], [place] 115915134 Apr, Abdominal pain, left lower quadrant R10.32 ; Mixed hyperlipidemia E78.2 and Hyperlipidemia 272.4 [facility] [address] [id number], [place] 117283911 09 Apr, 2015 Encounter for routine gynecological examination Z01.419 and Breast cancer screening Z12.39 [facility] [address] [id number], [place] 005671766 Apr, Abdominal pain, left lower quadrant R10.32 ; Mixed hyperlipidemia E78.2 and Lumbago M54.5 [facility] [address] [id number], [place] 700809762 Mar, Psoriasis 696.1 ; Hyperlipidemia 272.4 and Chronic pain 338.29 [facility] [address] [place] [address] AVE [id number], [place] 770282471 Mar, [facility] [address] [id number], [place] 050983208 Mar, [facility] [address] [place] [address] AVE [id number], [place] 751450082 Mar, Rash and nonspecific skin eruption 782.1 [facility] [address] [place] [address] AVE [id number], [place] 761828986 Feb, Dermatitis 692.9 and Thoracic or lumbosacral neuritis or radiculitis, unspecified 724.4 [facility] [address] [id number], [place] 581213566 Feb, Dermatitis 692.9 and Follow-up examination V67.9 [facility] [address] [id number], [place] 444083684 Jan, [facility] [address] [id number], [place] 678335264 Jan, Allergic dermatitis 692.9 [facility] [address] [id number], [place] 720026865 Jan, Rash and nonspecific skin eruption 782.[address] [facility] [address] [id number] [place] 052408188 Jan, [facility] [address] [id number], [place] 207374478 Jan, Dermatitis 692.9 and Environmental allergies V15.[address] [facility] [address] [id number], [place] 815360075 Dec, [facility] [address] [id number], [place] 781832033 Dec, [facility] [address] [id number], [place] 086873987 Dec, [facility] [address] [id number], [place] 084339383 November, [facility] [address] [id number], [place] 069894469 November, Muscle spasm 728.85 [facility] [address]65[place], [place] [address] Oct, [facility] [address] [id number], [place] [address] Oct, [facility] [address]00565100[place], [place] [address] Sep, [facility] [address] [id number], [place] [address] Sep, [facility] [address]00565100[place], [place] [address] Sep, [facility] [id number] [place] [address] Sep, [facility] [address] [id number], [place] [address] Sep, [facility] [id number] [place] [address] Sep, [facility] [place] [facility] [address] [id number] [place] [address] 16 Sep, 2014 [facility] [place] [facility] [address] [id number] [place] [address] 16 Sep, 2014 [facility] [place] [facility] [address] [id number] [place] [address] Aug, [facility] [place] [facility] [address] [id number] [place] [address] Aug, [facility] [place] [facility] [address] [id number] [place] [address] Jul, [facility] [place] [facility] [address] [id number] [place] [address] Jul, [facility] [place] [facility] [address] [id number] [place] [address] Jul, [facility] [place] [facility] [address] [id number] [place] [address] Jul, [facility] [place] [facility] [address] [id number] [place] [address] Jul, [facility] [place] [facility] [address] [id number] [place] [address] Jul, [facility] [place] [facility] [address] [id number] [place] [address] 18 Jun, 2014 [facility] [place] [facility] [address] [id number], [place] [address] Jun, [facility] [place] [facility] [address] [id number] [place] [address] 15 Jun, 2014 [facility] [place] [facility] [address] [id number] [place] [address] 15 Jun, 2014 [facility] [place] [facility] [address] [id number] [place] [address] 09 Jun, 2014 [facility] [place] [facility] [address] [id number] [place] [address] Jun, [facility] [place] [facility] [address] [id number] [place] [address] Jun, [facility] [place] [facility] [address] [id number] [place] [address] Jun, [facility] [place] [facility] [address] [id number] [place] [address] May, [facility] [place] [facility] [address] [id number] [place] [address] May, [facility] [place] [facility] [address] [id number] [place] [address] May, [facility] [place] [facility] [address] [id number] [place] [address] May, [facility] [place] [facility] [address] [id number] [place] [address] May, [facility] [place] [facility] [address] [id number] [place] [address] Apr, [facility] [place] [facility] [address] [id number] [place] [address] Apr, [facility] [place] [facility] [address] [facility] [id number] [place] [address] Apr, [facility] [place] [facility] [address] [id number] [place] [address] Apr, [facility] [place] [facility] [address] [id number] [place] [address] Apr, [facility] [place] [facility] [address] [id number] [place] [address] Apr, [facility] [place] [facility] [address] [id number] [place] [address] Apr, [facility] [place] [facility] [address] [id number] [place] [address] Apr, [facility] [place] [facility] [address] [id number] [place] [address] 20 Apr, 2014 [facility] [place] [facility] [address] [id number] [place] [address] 20 Apr, 2014 [facility] [place] [facility] [address] [id number] [place] [address] 17 Apr, 2014 [facility] [place] [facility] [address] [id number] [place] [address] 17 Apr, 2014 [facility] [place] [facility] [address] [id number] [place] [address] 16 Apr, 2014 [facility] [place] [facility] [address] [id number] [place] [address] 16 Apr, 2014 [facility] [place] [facility] [address] [id number] [place] [address] 15 Apr, 2014 [facility] [place] [facility] [address] [id number] [place] [address] 15 Apr, 2014 [facility] [place] [facility] [address] [id number] [place] [address] 14 Apr, 2014 [facility] [place] [facility] [address] [id number] [place] [address] 14 Apr, 2014 [facility] [place] [facility] [address] [id number] [place] [address] 13 Apr, 2014 [facility] [place] [facility] [address] [id number] [place] [address] 13 Apr, 2014 [facility] [place] [facility] [address] [id number] [place] [address] 06 Apr, 2014 [facility] [place] [facility] [address] [id number] [place] [address] 06 Apr, 2014 [facility] [place] [facility] [address] [id number] [place] [address] 05 Apr, 2014 [facility] [place] [facility] [address] [id number] [place] [address] Apr, [facility] [place] [facility] [address] [id number] [place] [address] Apr, [facility] [place] [facility] [address] [id number] [place] [address] Apr, [facility] [place] [facility] [address] [id number] [place] [address] Mar, [facility] [place] [facility] [address] [id number] [place] [address] Mar, [facility] [place] [facility] [address] [id number] [place] [address] Feb, [facility] [place] [facility] [address] [id number] [place] [address] Feb, [facility] [place] [facility] [address] [id number] [place] [address] Feb, [facility] [place] [facility] [address] [id number] [place] [address] Feb, [facility] [place] [facility] [address] [id number] [place] [address] Jan, [facility] [place] [facility] [address] [id number] [place] [address] Jan, [facility] [place] [facility] [address] [id number] [place] [address] Jan, [facility] [place] [facility] [address] [id number] [place] [address] Jan, [facility] [place] [facility] [address] [id number] [place] [address] Jan, [facility] [place] [facility] [address] [id number] [place] [address] Jan, [facility] [place] [facility] [address] [id number] [place] [address] Jan, [facility] [place] [facility] [address] [id number] [place] [address] Jan, [facility] [place] [facility] [address] [id number] [place] [address] Jan, [facility] [place] [facility] [address] [id number] [place] [address] Jan, [facility] [place] [facility] [address] [id number] [place] [address] Jan, [facility] [place] [facility] [address] [id number] [place] [address] Dec, [facility] [place] [facility] [address] [id number] [place] [address] Dec, [facility] [place] [facility] [address] [id number] [place] [address] Dec, [facility] [place] [facility] [address] [id number] [place] [address] Dec, [facility] [address] [id number] [place] [address] November, [facility] [place] [facility] [address] [id number] [place] [address] November, [facility] [address] [id number] [place] [address] November, [facility] [place] [facility] [address] [id number] [place] [address] November, [facility] [place] [facility] [address] [id number] [place] [address] November, [facility] [place] [facility] [address] [id number] [place] [address] November, [facility] [place] [facility] [address] [id number] [place] [address] November, [facility] [place] [facility] [address] [id number] [place] [address] November, [facility] [place] [facility] [address] [id number] [place] [address] November, [facility] [place] [facility] [address] [id number] [place] [address] November, [facility] [place] [facility] [address] [id number] [place] [address] November, [facility] [place] [facility] [address] [id number] [place] [address] Oct, [facility] [place] [facility] [address] [id number] [place] [address] Oct, [facility] [place] [facility] [address] [id number] [place] [address] Oct, [facility] [place] [facility] [address] [id number] [place] [address] Oct, [facility] [place] [facility] [address] [id number] [place] [address] Oct, [facility] [place] [facility] [address] [id number] [place] [address] Oct, [facility] [place] [facility] [address] [id number] [place] [address] Sep, [facility] [place] [facility] [address] [id number] [place] [address] Sep, [facility] [place] [facility] [address] [id number] [place] [address] Sep, [facility] [place] [facility] [address] [id number] [place] [address] Sep, [facility] [place] [facility] [address] [id number] [place] [address] Sep, [facility] [place] [facility] [address] [id number] [place] [address] 18 Sep, 2013 [facility] [place] [facility] [address] [id number], [place] [address] Sep, [facility] [place] [facility] [address] [id number] [place] [address] Sep, [facility] [place] [facility] [address] [id number] [place] [address] Sep, [facility] [place] [facility] [address] [id number] [place] [address] Sep, [facility] [place] [facility] [address] [id number] [place] [address] Sep, [facility] [place] [facility] [address] [id number] [place] [address] Aug, [facility] [place] [facility] [address] [id number] [place] [address] Aug, [facility] [place] [facility] [address] [id number] [place] [address] Aug, [facility] [place] [facility] [address] [id number] [place] [address] Aug, [facility] [place] [facility] [address] [id number] [place] [address] Jul, [facility] [place] [facility] [address] [facility] [id number] [place] [address] Jul, [facility] [place] [facility] [address] [id number] [place] [address] Jul, [facility] [place] [facility] [address] [id number] [place] [address] Jul, [facility] [place] [facility] [address] [id number] [place] [address] Jul, [facility] [place] [facility] [address] [id number] [place] [address] Jul, [facility] [place] [facility] [address] [id number] [place] [address] Jul, [facility] [place] [facility] [address] [id number] [place] [address] Jul, [facility] [address] [id number] [place] [address] Jul, [facility] [address] [id number] [place] [address] Jul, [facility] [address] [id number] [place] [address] Jul, [facility] [address] [id number] [place] [address] Jul, [facility] [address] [id number] [place] [address] Jul, [facility] [address] [id number] [place] [address] Jun, [facility] [address] [id number] [place] [address] Jun, [facility] [address] [id number] [place] [address] Jun, [facility] [address] [id number] [place] [address] Jun, [facility] [address] [id number] [place] [address] Jun, [facility] [address] [id number] [place] [address] Jun, [facility] [place] [facility] [address] [id number] [place] [address] Jun, [facility] [place] [facility] [address] [id number] [place] [address] Jun, [facility] [place] [facility] [address] [id number] [place] [address] Jun, [facility] [place] [facility] [address] [id number] [place] [address] Jun, [facility] [address] [id number] [place] [address] Jun, [facility] [place] [facility] [address] [id number] [place] [address] Jun, [facility] [place] [facility] [address] [id number] [place] [address] Jun, [facility] [place] [facility] [address] [id number] [place] [address] Jun, [facility] [place] [facility] [address] [id number] [place] [address] Jun, [facility] [place] [facility] [address] [id number] [place] [address] Jun, [facility] [place] [facility] [address] [id number] [place] [address] Jun, [facility] [place] [facility] [address] [id number] [place] [address] Jun, [facility] [place] [facility] [address] [id number] [place] [address] Jun, [facility] [place] [facility] [address] [id number] [place] [address] Jun, [facility] [place] [facility] [address] [id number], [place] [address] Jun, [facility] [place] [facility] [address] [id number], [place] [address] Jun, [facility] [facility] [address] [id number] [place] [address] Jun, [facility] [place] [facility] [address] [id number], [place] [address] May, [facility] [place] [facility] [address] [id number] [place] [address] May, [facility] [place] [facility] [address] [id number], [place] [address] Apr, [facility] [address] [id number] [id number] Mar, [facility] [address] [id number], [place] [address] Feb, [facility] [address] [id number], [place] [address] Feb, [facility] [id number], [place] [address] Jan, [facility] [id number], [place] [address] Jan, [facility] [id number], [place] [address] November, [facility] [id number], [place] [address] November, [facility] [address] [id number], [place] [address] Oct, [facility] [id number], [place] [address] Oct, [facility] [address] [facility] [id number] [id number] November, [facility] [address] [id number], [place] [address] May, [facility] [address] [id number], [place] [address] Feb, IMMUNIZATIONS No Known Immunizations SOCIAL HISTORY Never Assessed REASON FOR VISIT hematuria PLAN OF CARE VITAL SIGNS MEDICATIONS Unknown [...] anxiety, depression Medical History CT abdomen at [facility] 3-1-17 shows a ventral hernia and fatty liver disease Medical History Pt no-showed colonoscopy Medical History no showed mammogram Surgical History tonsillectomy Surgical History appendectomy 03/2011 Surgical History hysterectomy, total with bilateral salpingo-oophorectomy (BSO) 03/2011 Surgical History large abdominal tumor/uterus removed 2010 Hospitalization History past surgeries
--- OUTSIDE RECORDS SUMMARY | 2019-02-08 10:47 | XMS REPORT ---
Author Author WILDA PATEL [facility] eClinicalWorks Address Unknown Phone Unavailable Care Team Providers Care Player Piano Technician Name Role Phone WILDA PATEL CP Unavailable Allergies, Adverse Reactions, Alerts Substance Reaction Event Type Codeine Info Not Available Drug Allergy Problems Problem Type Condition ICD-9 Code Onset Dates Condition Status Assessment Chronic pain 338.29 Active Assessment Hyperlipidemia 272.4 Active Assessment Psoriasis 696.1 Active Problem Thoracic or lumbosacral neuritis or radiculitis, unspecified 724.4 Active Problem Unspecified local infection of skin and subcutaneous tissue 686.9 Active Problem Encounter for long-term (current) use of other medications V58.69 Active Problem Unspecified breast screening V76.10 Active Problem Unspecified essential hypertension 401.9 Active Problem Contact dermatitis and other eczema, due to unspecified cause 692.9 Active Problem Proteinuria 791.0 Active Problem Erythema nodosum 695.2 Active Problem Other chronic pain 338.29 Active Problem Muscle spasm 728.85 Active Problem Other abnormal blood chemistry 790.6 Active Problem Personal history of unspecified disease V13.9 Active Problem Abdominal pain, left upper quadrant 789.02 Active Problem Hyperlipidemia 272.4 Active Problem Other chronic nonalcoholic liver disease 571.8 Active Problem Esophageal reflux 530.81 Active Problem Dysthymic disorder 300.4 Active Problem Acute bronchitis 466.0 Active Problem Counseling on substance use and abuse V65.42 Active Problem Encounter for removal of sutures V58.32 Active Problem Need for prophylactic vaccination and inoculation, Influenza V04.81 Active Problem Other screening mammogram V76.12 Active Problem Nondependent cannabis abuse, 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 78390248766 50 MG take 1 tablet by Oral route 1 time per day with meals ER Celexa [facility] [address]-93 40 MG Orally Once a day Jun 19, [address] [facility] 88117133234 40 MG take 1 capsule by Oral route before a meal 1 time per day Multivitamins [facility] [address] Orally not defined Albuterol Sulfate [facility] [address]-61 90 mcg/actuation May 06, 2014 2 puffs by Inhalation route every 6 hours as needed PRN cough or wheezing Famotidine [facility] 12110011683 20 MG TAKE 1 TABLET BY MOUTH TWICE DAILY. Triamcinolone Acetonide [facility] [address]-68 0.1 % Externally Twice a day, 14 days on, 14 days off Apr 02, 2015 1 application to affected area Remeron [facility] 39898850940 30 MG take 1 tablet by Oral route before bedtime 1 time per day Atorvastatin Calcium [facility] [address]-03 40 MG Orally Once a day [address] [facility] 06538695134 20 MG 1 tablet by Oral route 2 times per day metformin ND 0 500 mg Jun 30, 2014 take 1 tablet by Oral route 2 times per day with morning and evening meals Claritin [facility] [address]-76 10 MG Orally Once a day January 21, 2015 May 21, [address] [facility] 29544194173 10 MG 1 tablet by Oral route 1 time per day Tricor [facility] [address]-25 145 mg Apr 21, 2014 1 tablet by Oral route 1 time per day Ultram [facility] [address]-90 50 MG Orally 2 times a day 1 tablet as needed Cyclobenzaprine HCl [facility] [address]-35 10 MG Orally 2 times a day November 17, 2014 1 tablet Procedures Procedure Coding System Code Date Office Visit, Est Pt., Level 3 CPT-4 97193 Apr 02, 2015 Vital Signs Date/Time: Apr 02, 2015 Temperature 98.2 F Weight 190.8 lbs Height 63 in BMI 33.80 Index Blood Pressure Diastolic 80 mmHg Blood Pressure Systolic 118 mmHg Cardiac Monitoring Heart Rate 78 bpm Results No Known Results Summary Purpose eClinicalWorks Submission
--- OUTSIDE RECORDS SUMMARY | 2019-02-08 10:47 | XMS REPORT ---
Author Author WILDA PATEL [facility] eClinicalWorks Address Unknown Phone Unavailable Care Team Providers Care Ship'S Captain Name Role Phone WILDA PATEL CP Unavailable Allergies, Adverse Reactions, Alerts Substance Reaction Event Type Codeine Info Not Available Drug Allergy Problems Problem Type Condition Code Onset Dates Condition Status Assessment Lumbago M54.5 Active Problem Other psoriasis 696.1 Active Assessment Mixed hyperlipidemia E78.2 Active Problem Encounter for long-term (current) use of other medications V58.69 Active Assessment Abdominal pain, left lower quadrant R10.32 Active Problem Unspecified essential hypertension 401.9 Active [...] Start Date End Date Status Dosage Famotidine [facility] 63241439069 20 MG TAKE 1 TABLET BY MOUTH TWICE DAILY. Celexa [facility] [address]-78 40 MG Orally Once a day Jun 19, 2014 1 tablet Pepcid [facility] 24546279685 20 MG 1 tablet by Oral route 2 times per day Ultram NDC [address]-70 50 MG Orally 2 times a day 1 tablet as needed Cyclobenzaprine HCl [facility] [address]-88 10 MG Orally 2 times a day November 17, 2014 Jul 20, 2015 1 tablet-must last 6 months Remeron [facility] 49086141838 30 MG take 1 tablet by Oral route before bedtime 1 time per day Tricor [facility] [address]-76 145 mg Apr 21, 2014 1 tablet by Oral route 1 time per day metformin ND 0 500 mg Jun 30, 2014 take 1 tablet by Oral route 2 times per day with morning and evening meals Metoprolol Tartrate [facility] 97939497509 50 MG take 1 tablet by Oral route 1 time per day with meals ER Colace [facility] [address]-48 100 MG Orally 2 times a day Apr 21, 2015 Jun 20, 2015 1 capsule as needed Multivitamins [facility] [address] Orally not defined Atorvastatin Calcium [facility] [address]-06 40 MG Orally Once a day 1 tablet Claritin [facility] [address]-21 10 MG Orally Once a day January 21, 2015 May 21, 2015 1 tablet Lisinopril [facility] 82213786326 10 MG 1 tablet by Oral route 1 time per day Prilosec [facility] 97133542690 40 MG take 1 capsule by Oral route before a meal 1 time per day Procedures Procedure Coding System Code Date Office Visit, Est Pt., Level 4 CPT-4 82986 Apr 21, 2015 X-RAY EXAM OF ABDOMEN CPT-4 10752 Apr 21, 2015 Vital Signs Date/Time: Apr 21, 2015 Temperature 96.8 F Weight 186.0 lbs Height 63 in BMI 32.94 Index Blood Pressure Diastolic 80 mmHg Blood Pressure Systolic 122 mmHg Cardiac Monitoring Heart Rate 78 bpm Results No Known Results Summary Purpose eClinicalWorks Submission
--- OUTSIDE RECORDS SUMMARY | 2019-02-08 10:47 | XMS REPORT ---
Author Author WILDA PATEL Organization e[employer] Address Unknown Phone Unavailable Care Team Providers Care Fleet Assistant Name Role Phone WILDA PATEL CP Unavailable [...]
--- OUTSIDE RECORDS SUMMARY | 2019-02-08 10:48 | XMS REPORT ---
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 Name Role Phone WILDA PATEL Unavailable PROBLEMS Type Condition ICD9-CM Code DOP41-BU Code Onset Dates Condition Status SNOMED Code Problem Emotional lability R45.86 Active 51126589 Problem Heartburn R12 Active 28517600 Problem High risk medication use Z79.899 Active 213037490 Problem Colon cancer screening Z12.11 Active 584069491 Problem Pulmonary emphysema, unspecified emphysema type J43.9 Active 50433886 Problem Mixed hyperlipidemia E78.2 Active 067102746 Problem Fatty liver disease, nonalcoholic K76.0 Active 066948241 Problem Colonoscopy refused Z53.20 Active 024722180 Problem Lumbago with sciatica, left side M54.42 Active 837198781 Problem Other chronic pain G89.29 Active 96439601 Problem Serum calcium elevated E83.52 Active 88999891 Problem Urinary frequency R35.0 Active 776343415 Problem Psoriasis L40.9 Active 0128931 Problem Hyperlipidemia E78.5 Active 81862293 Problem Essential hypertension with goal blood pressure less than 130\/80 I10 Active 57922615 Problem Dental caries K02.9 Active 84424330 Problem Lumbago with sciatica, right side M54.41 Active 825993595334481 Problem Substance abuse F19.10 Active 88922953 Problem Hematuria, unspecified type R31.9 Active 92470903 Problem Metabolic syndrome X E88.81 Active 893243759 Problem Elevated serum GGT level R74.8 Active 545923468 Problem Psoriasis vulgaris L40.0 Active 761735825 Problem Dysthymia F34.1 Active 28164084 Problem Breast cancer screening Z12.39 Active 849214422 Problem Weight loss R63.4 Active 235608436 Problem 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 Active 909298111 Problem Gynecologic exam normal Z01.419 Active 480169534 ALLERGIES No Information ENCOUNTERS Encounter Location Date Diagnosis [facility] [address] [id number] [place] [address] Jan, [facility] [address] [id number] AIR [place]CE [place] [address] November, Serum calcium elevated E83.52 and Elevated serum GGT level R74.8 [facility] [address] [id number] AIR [place] [address] November, Fatty liver disease, nonalcoholic K76.[address] [facility] [address] [id number] AIR [place]CE [place] [address] November, High risk medication use Z79.899 ; Hematuria, unspecified type R31.9 ; Dental caries K02.9 ; Urinary frequency R35.0 and Substance abuse F19.10 [facility] [address] [id number] AIR [place] [address] Sep, [facility] [address] [id number] AIR [place] [id number] Aug, [facility] [address] [id number] AIR [place] [id number] Aug, [facility] [address] [id number] AIR [place] [address] Jul, [facility] [address] [id number] [place] [address] Jun, [facility] [address] [id number] AIR [place] [address] Jun, Hematuria, unspecified type R31.9 [facility] [address] [id number] AIR [place] [address] May, Lumbago with sciatica, left side M54.42 and Hematuria, unspecified type R31.9 [facility] [address] [id number] AIR [place] [address] May, Hematuria, unspecified type R31.[address] [facility] [address] [id number] [place] [address] Apr, High risk medication use Z79.899 ; Lumbago with sciatica, left side M54.42 ; Lumbago with sciatica, right side M54.41 ; Other chronic pain G89.29 ; Emotional lability R45.86 and Colonoscopy refused Z53.[address] [facility] [address] [id number] AIR [place] [address] Feb, [facility] [address] [id number] AIR [place] [address] Feb, [facility] [address] [facility] [id number] [address] Jan, [facility] [address] [id number] AIR [place] [address] Jan, Psoriasis vulgaris L40.[address] [facility] [address] [id number] AIR [place] [address] Jan, High risk medication use Z79.899 [facility] [address] [id number] AIR [place] [address] Dec, Psoriasis vulgaris L40.0 [facility] [address] [id number] AIR [place] [address] Oct, Mixed hyperlipidemia E78.2 and High risk medication use Z79.[address] [facility] [address] [id number] AIR [place] [address] Oct, [facility] [address] [id number] AIR [place] [address] Oct, [facility] [address] [id number] AIR [place] [address] Oct, Hyperlipidemia E78.5 and Weight loss R63.[address] [facility] [address] [id number] AIR [place] [address] Oct, Gynecologic exam normal Z01.419 ; Breast cancer screening Z12.39 ; Weight loss R63.4 and Colon cancer screening Z12.[address] [facility] [address] [id number] [place] [address] Jul, [facility] [address] [id number] AIR [place] [address] Jul, High risk medication use Z79.[address] [facility] [address] [id number] AIR [place] 569[address] Jul, Metabolic syndrome X E88.81 ; Elevated serum GGT level R74.8 ; Dysthymia F34.1 and 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 [facility] [address] [id number] AIR [place] [address] Jun, [facility] [address] [id number] AIR [place] [address] May, [facility] [address] [id number] AIR [place] [address] May, [facility] [address] [id number] AIR [place] [address]37[place] May, High risk medication use Z79.[address] [facility] [address] [id number] AIR [place] [address] May, [facility] [address] [id number] AIR [place] [address] May, Psoriasis vulgaris L40.0 and Other shelter (current) drug therapy Z79.[address] [facility] [address] [id number] AIR [place] [address] Mar, Hyperlipidemia E78.[address] [facility] [address] [id number] AIR [place] [address] Mar, [facility] [address] [id number] [place] [address] Mar, [facility] [address] [id number] [place] [address] Mar, Fatty liver disease, nonalcoholic K76.0 and Hyperlipidemia E78.[address] [facility] [address] [id number] [place] [id number] Mar, [facility] [address] [id number] [place] [address] Mar, Fatty liver disease, nonalcoholic K76.0 ; Psoriasis L40.9 and Hyperlipidemia E78.[address] [facility] [address] [id number] [place] [id number] Mar, [facility] [address] [id number] [address] Feb, [facility] [address] [id number] AIR [place] [address] Feb, [facility] [address] [id number] AIR [place] 46948[address] Jan, [facility] [address] [id number] AIR [place] 288[address] Dec, [facility] [address] [id number] [place] 548[address] Dec, [facility] [address] [facility] [id number], [place] [address] November, [facility] [address] [id number] AIR [place] 533[address] November, [facility] [address] [id number] AIR [place] [address]89460[address] Oct, [facility] [address] [id number] [place] 9680[address] Oct, Fatty liver disease, nonalcoholic K76.0 and Encounter for immunization Z23 [facility] [address] [facility] [id number], [place] [address] Oct, [facility] [address] [id number] AIR [place] [address]498536[address] Sep, Fatty liver disease, nonalcoholic K76.[address] [facility] [address] [id number] AIR [place] 735308[address] Sep, Fatty liver disease, nonalcoholic K76.0 ; High risk medication use Z79.899 ; Emotional lability R45.86 ; Hyperlipidemia E78.5 and Essential hypertension with goal blood pressure less than 130\/80 I10 [facility] [address] [facility] [id number] [place] [address] Sep, [facility] [address] [id number] AIR [place] [address]2291[address] Aug, Mixed hyperlipidemia E78.2 and Heartburn R12 [facility] [address] [id number] AIR [place] 813220[address] Aug, High risk medication use Z79.899 ; Emotional lability R45.86 ; Pulmonary emphysema, unspecified emphysema type J43.9 and Heartburn R12 [facility] [address] [id number] AIR [place] [address] Jul, [facility] [address] [id number] AIR [place] [address] Jul, [facility] [address] [id number] [place] 312[address] Jun, [facility] [address] [id number] AIR [place] 6548099[address] May, Right upper quadrant abdominal pain R10.11 and Fatty liver K76.0 [facility] [address] [id number] AIR [place] 544587807 Apr, Elevated AFP R77.2 ; Fatty liver K76.0 ; Unspecified cirrhosis of liver K74.60 ; High risk medication use Z79.899 ; Anhedonia R45.84 and Psoriasis L40.9 [facility] [address] [id number] AIR [place] 716824[address] Apr, [facility] [address] [id number] [place] 215[address] Apr, Elevated liver enzymes R74.8 [facility] [address] [address] [id number] AIR [place] 72758[address] Apr, Abdominal pain, left lower quadrant R10.32 ; Mixed hyperlipidemia E78.2 and Hyperlipidemia 272.4 [facility] [address] [id number] AIR [place] 228985314 09 Apr, 2015 Encounter for routine gynecological examination Z01.419 and Breast cancer screening Z12.39 [facility] [address] [id number] [place] 257248399 Apr, Abdominal pain, left lower quadrant R10.32 ; Mixed hyperlipidemia E78.2 and Lumbago M54.5 [facility] [address] [id number] [place] [address]31[address] Mar, Psoriasis 696.1 ; Hyperlipidemia 272.4 and Chronic pain 338.29 [facility] [address] [place] [address] AVE [id number] AIR [place] [address]77[address] Mar, [facility] [address] [id number] AIR [place] 7721623[address] Mar, [facility] [address] [place] [address] AVE [id number] AIR [place] 372645114 Mar, Rash and nonspecific skin eruption 782.1 [facility] [address] [place] [address] AVE [id number] AIR [place] 809332[address] Feb, Dermatitis 692.9 and Thoracic or lumbosacral neuritis or radiculitis, unspecified 724.4 [facility] [address] [id number] AIR [place] 4124[address] Feb, Dermatitis 692.9 and Follow-up examination V67.9 [facility] [address] [id number] AIR [place] 663264596 Jan, [facility] [address] [id number] AIR [place] 488892217 Jan, Allergic dermatitis 692.9 [facility] [address] [id number] AIR [place] 92244[address] Jan, Rash and nonspecific skin eruption 782.[address] [facility] [address] [id number] [place] [address] Jan, [facility] [address] [id number] AIR [place] 930014814 Jan, Dermatitis 692.9 and Environmental allergies V15.[address] [facility] [address] [id number] AIR [place]CE [place] 436729839 Dec, [facility] [address] [id number] AIR [place] 589544130 Dec, [facility] [address] [id number] AIR [place] 136950643 Dec, [facility] [address] [id number] AIR [place] 146666322 November, [facility] [address] [id number] AIR [place] 214396314 November, Muscle spasm 728.85 [facility] [address] [address] Oct, [facility] [address] [id number] [address] Oct, [facility] [address]00565100[place], [place] [address] Sep, [facility] [address] [id number], [place] [address] Sep, [facility] [address]00565100[place], [place] [address] Sep, [facility] [id number] [place] [address] Sep, [facility] [address] [id number], [place] [address] Sep, [facility] [id number] [place] [address] Sep, [facility] [place] [facility] [address] [id number] [place] [address] 16 Sep, 2014 [facility] [place] [facility] [address] [id number] [place] [address] 16 Sep, 2014 [facility] [place] [facility] [address] [id number] [place] [address] Aug, [facility] [place] [facility] [address] [id number] [place] [address] Aug, [facility] [place] [facility] [address] [id number] [place] [address] Jul, [facility] [place] [facility] [address] [id number] [place] [address] Jul, [facility] [place] [facility] [address] [id number] [place] [address] Jul, [facility] [place] [facility] [address] [id number] [place] [address] Jul, [facility] [place] [facility] [address] [id number] [place] [address] Jul, [facility] [place] [facility] [address] [id number] [place] [address] Jul, [facility] [place] [facility] [address] [id number] [place] [address] 18 Jun, 2014 [facility] [place] [facility] [address] [id number], [place] [address] Jun, [facility] [place] [facility] [address] [id number] [place] [address] 15 Jun, 2014 [facility] [place] [facility] [address] [id number] [place] [address] 15 Jun, 2014 [facility] [place] [facility] [address] [id number] [place] [address] 09 Jun, 2014 [facility] [place] [facility] [address] [id number] [place] [address] Jun, [facility] [place] [facility] [address] [id number] [place] [address] Jun, [facility] [place] [facility] [address] [id number] [place] [address] Jun, [facility] [place] [facility] [address] [id number] [place] [address] May, [facility] [place] [facility] [address] [id number] [place] [address] May, [facility] [place] [facility] [address] [id number] [place] [address] May, [facility] [place] [facility] [address] [id number] [place] [address] May, [facility] [place] [facility] [address] [id number] [place] [address] May, [facility] [place] [facility] [address] [id number] [place] [address] Apr, [facility] [place] [facility] [address] [id number] [place] [address] Apr, [facility] [place] [facility] [address] [facility] [id number] [place] [address] Apr, [facility] [place] [facility] [address] [id number] [place] [address] Apr, [facility] [place] [facility] [address] [id number] [place] [address] Apr, [facility] [place] [facility] [address] [id number] [place] [address] Apr, [facility] [place] [facility] [address] [id number] [place] [address] Apr, [facility] [place] [facility] [address] [id number] [place] [address] Apr, [facility] [place] [facility] [address] [id number] [place] [address] 20 Apr, 2014 [facility] [place] [facility] [address] [id number] [place] [address] 20 Apr, 2014 [facility] [place] [facility] [address] [id number] [place] [address] 17 Apr, 2014 [facility] [place] [facility] [address] [id number] [place] [address] 17 Apr, 2014 [facility] [place] [facility] [address] [id number] [place] [address] 16 Apr, 2014 [facility] [place] [facility] [address] [id number] [place] [address] 16 Apr, 2014 [facility] [place] [facility] [address] [id number] [place] [address] 15 Apr, 2014 [facility] [place] [facility] [address] [id number] [place] [address] 15 Apr, 2014 [facility] [place] [facility] [address] [id number] [place] [address] 14 Apr, 2014 [facility] [place] [facility] [address] [id number] [place] [address] 14 Apr, 2014 [facility] [place] [facility] [address] [id number] [place] [address] 13 Apr, 2014 [facility] [place] [facility] [address] [id number] [place] [address] 13 Apr, 2014 [facility] [place] [facility] [address] [id number] [place] [address] 06 Apr, 2014 [facility] [place] [facility] [address] [id number] [place] [address] 06 Apr, 2014 [facility] [place] [facility] [address] [id number] [place] [address] 05 Apr, 2014 [facility] [place] [facility] [address] [id number] [place] [address] Apr, [facility] [place] [facility] [address] [id number] [place] [address] Apr, [facility] [place] [facility] [address] [id number] [place] [address] Apr, [facility] [place] [facility] [address] [id number] [place] [address] Mar, [facility] [place] [facility] [address] [id number] [place] [address] Mar, [facility] [place] [facility] [address] [id number] [place] [address] Feb, [facility] [place] [facility] [address] [id number] [place] [address] Feb, [facility] [place] [facility] [address] [id number] [place] [address] Feb, [facility] [place] [facility] [address] [id number] [place] [address] Feb, [facility] [place] [facility] [address] [id number] [place] [address] Jan, [facility] [place] [facility] [address] [id number] [place] [address] Jan, [facility] [place] [facility] [address] [id number] [place] [address] Jan, [facility] [place] [facility] [address] [id number] [place] [address] Jan, [facility] [place] [facility] [address] [id number] [place] [address] Jan, [facility] [place] [facility] [address] [id number] [place] [address] Jan, [facility] [place] [facility] [address] [id number] [place] [address] Jan, [facility] [place] [facility] [address] [id number] [place] [address] Jan, [facility] [place] [facility] [address] [id number] [place] [address] Jan, [facility] [place] [facility] [address] [id number] [place] [address] Jan, [facility] [place] [facility] [address] [id number] [place] [address] Jan, [facility] [place] [facility] [address] [id number] [place] [address] Dec, [facility] [place] [facility] [address] [id number] [place] [address] Dec, [facility] [place] [facility] [address] [id number] [place] [address] Dec, [facility] [place] [facility] [address] [id number] [place] [address] Dec, [facility] [address] [id number] [place] [address] November, [facility] [place] [facility] [address] [id number] [place] [address] November, [facility] [address] [id number] [place] [address] November, [facility] [place] [facility] [address] [id number] [place] [address] November, [facility] [place] [facility] [address] [id number] [place] [address] November, [facility] [place] [facility] [address] [id number] [place] [address] November, [facility] [place] [facility] [address] [id number] [place] [address] November, [facility] [place] [facility] [address] [id number] [place] [address] November, [facility] [place] [facility] [address] [id number] [place] [address] November, [facility] [place] [facility] [address] [id number] [place] [address] November, [facility] [place] [facility] [address] [id number] [place] [address] November, [facility] [place] [facility] [address] [id number] [place] [address] Oct, [facility] [place] [facility] [address] [id number] [place] [address] Oct, [facility] [place] [facility] [address] [id number] [place] [address] Oct, [facility] [place] [facility] [address] [id number] [place] [address] Oct, [facility] [place] [facility] [address] [id number] [place] [address] Oct, [facility] [place] [facility] [address] [id number] [place] [address] Oct, [facility] [place] [facility] [address] [id number] [place] [address] Sep, [facility] [place] [facility] [address] [id number] [place] [address] Sep, [facility] [place] [facility] [address] [id number] [place] [address] Sep, [facility] [place] [facility] [address] [id number] [place] [address] Sep, [facility] [place] [facility] [address] [id number] [place] [address] Sep, [facility] [place] [facility] [address] [id number] [place] [address] 18 Sep, 2013 [facility] [place] [facility] [address] [id number] [address] Sep, [facility] [place] [facility] [address] [id number] [place] [address] Sep, [facility] [place] [facility] [address] [id number] [place] [address] Sep, [facility] [place] [facility] [address] [id number] [place] [address] Sep, [facility] [place] [facility] [address] [id number] [place] [address] Sep, [facility] [place] [facility] [address] [id number] [place] [address] Aug, [facility] [place] [facility] [address] [id number] [place] [address] Aug, [facility] [place] [facility] [address] [id number] [place] [address] Aug, [facility] [place] [facility] [address] [id number] [place] [address] Aug, [facility] [place] [facility] [address] [id number] [place] [address] Jul, [facility] [place] [facility] [address] [facility] [id number] [place] [address] Jul, [facility] [place] [facility] [address] [id number] [place] [address] Jul, [facility] [place] [facility] [address] [id number] [place] [address] Jul, [facility] [place] [facility] [address] [id number] [place] [address] Jul, [facility] [place] [facility] [address] [id number] [place] [address] Jul, [facility] [place] [facility] [address] [id number] [place] [address] Jul, [facility] [place] [facility] [address] [id number] [place] [address] Jul, [facility] [address] [id number] [place] [address] Jul, [facility] [address] [id number] [place] [address] Jul, [facility] [address] [id number] [place] [address] Jul, [facility] [address] [id number] [place] [address] Jul, [facility] [address] [id number] [place] [address] Jul, [facility] [address] [id number] [place] [address] Jun, [facility] [address] [id number] [place] [address] Jun, [facility] [address] [id number] [place] [address] Jun, [facility] [address] [id number] [place] [address] Jun, [facility] [address] [id number] [place] [address] Jun, [facility] [address] [id number] [place] [address] Jun, [facility] [place] [facility] [address] [id number] [place] [address] Jun, [facility] [place] [facility] [address] [id number] [place] [address] Jun, [facility] [place] [facility] [address] [id number] [place] [address] Jun, [facility] [place] [facility] [address] [id number] [place] [address] Jun, [facility] [address] [id number] [place] [address] Jun, [facility] [place] [facility] [address] [id number] [place] [address] Jun, [facility] [place] [facility] [address] [id number] [place] [address] Jun, [facility] [place] [facility] [address] [id number] [place] [address] Jun, [facility] [place] [facility] [address] [id number] [place] [address] Jun, [facility] [place] [facility] [address] [id number] [place] [address] Jun, [facility] [place] [facility] [address] [id number] [place] [address] Jun, [facility] [place] [facility] [address] [id number] [place] [address] Jun, [facility] [place] [facility] [address] [id number] [place] [address] Jun, [facility] [place] [facility] [address] [id number] [place] [address] Jun, [facility] [place] [facility] [address] [id number], [place] [address] Jun, [facility] [place] [facility] [address] [id number], [place] [address] Jun, [facility] [place] [facility] [address] [id number] [place] [address] Jun, [facility] [place] [facility] [address] [id number], [place] [address] May, [facility] [place] [facility] [address] [id number] [place] [address] May, [facility] [place] [facility] [address] [id number] [address] Apr, [facility] [address] [facility] [id number] [id number] Mar, [facility] [address] [id number] [address] Feb, [facility] [address] [address] Feb, [facility] [address] [address] Jan, [facility] [address], [place] [address] Jan, [facility] [address] [address] November, [facility] [address] [address] November, [facility] [address] [id number] [address] Oct, [facility] [address] [id number] [address] Oct, [facility] [address] [facility] [id number] [id number] November, [facility] [address] [id number] [address] May, [facility] [address] [id number] [address] Feb, IMMUNIZATIONS No Known Immunizations SOCIAL HISTORY Never Assessed REASON FOR VISIT Test results PLAN OF CARE VITAL SIGNS MEDICATIONS Unknown [...] depression Medical History CT abdomen at [facility] 3-1-17 shows a ventral hernia and fatty liver disease Medical History Pt no-showed colonoscopy Medical History no showed mammogram Surgical History tonsillectomy Surgical History appendectomy 03/2011 Surgical History hysterectomy, total with bilateral salpingo-oophorectomy (BSO) 03/2011 Surgical History large abdominal tumor/uterus removed 2010 Hospitalization History past surgeries
--- OUTSIDE RECORDS SUMMARY | 2019-02-08 10:48 | XMS REPORT ---
Author Author JEANINE DEE [facility] e[employer] Address Unknown Phone Unavailable Care Team Providers Care Gift Basket Packer Name Role Phone JEANINE DEE Unavailable Allergies, Adverse Reactions, Alerts Substance Reaction Event Type Codeine Info Not Available Drug Allergy Problems Problem Type Condition Code Onset Dates Condition Status Problem Other psoriasis 696.1 Active Assessment Breast cancer screening Z12.39 Active Problem Encounter for long-term (current) use of other medications V58.69 Active Assessment Encounter for routine gynecological examination Z01.419 Active Problem Unspecified essential hypertension 401.9 Active [...] Instructions Start Date End Date Status Dosage Colace [facility] [address]-76 100 MG Orally 2 times a day Apr 21, 2015 Jun 20, 2015 1 capsule as needed Famotidine [facility] 45544071498 20 MG TAKE 1 TABLET BY MOUTH TWICE DAILY. Remeron [facility] 64568314865 30 MG take 1 tablet by Oral route before bedtime 1 time per day Lisinopril [facility] 24757451156 10 MG 1 tablet by Oral route 1 time per day Multivitamins [facility] [address] Orally not defined metformin ND 0 500 mg Jun 30, 2014 take 1 tablet by Oral route 2 times per day with morning and evening meals Celexa [facility] [address]-15 40 MG Orally Once a day Jun 19, 2014 1 tablet Claritin [facility] [address]-14 10 MG Orally Once a day January 21, 2015 May 21, 2015 1 tablet Cyclobenzaprine HCl [facility] [address]-16 10 MG Orally 2 times a day November 17, 2014 Jul 20, 2015 1 tablet-must last 6 months Atorvastatin Calcium [facility] [address]-00 40 MG Orally Once a day 1 tablet Prilosec [facility] 58638271358 40 MG take 1 capsule by Oral route before a meal 1 time per day Tricor [facility] [address]-95 145 mg Apr 21, 2014 1 tablet by Oral route 1 time per day Ultram [facility] [address]-72 50 MG Orally 2 times a day 1 tablet as needed Metoprolol Tartrate [facility] 73327650731 50 MG take 1 tablet by Oral route 1 time per day with meals ER Pepcid [facility] 86321125937 20 MG 1 tablet by Oral route 2 times per day Procedures Procedure Coding System Code Date Preventive Care Est Pt. Age 40-64 CPT-4 77310 Apr 24, 2015 Vital Signs Date/Time: Apr 24, 2015 Temperature 98 F Weight 185 lbs Height 63 in BMI 32.77 Index Blood Pressure Diastolic 74 mmHg Blood Pressure Systolic 120 mmHg Cardiac Monitoring Heart Rate 80 bpm Results No Known Results Summary Purpose eClinicalWorks Submission
--- OUTSIDE RECORDS SUMMARY | 2019-02-08 10:48 | XMS REPORT ---
Author Author WILDA PATEL Organization [employer] Address Unknown Phone Unavailable Care Team Providers Care Picker And Sorter Load And Unload Name Role Phone WILDA PATEL Unavailable Allergies No Known Allergies Problems Problem Type Condition Code Onset Dates Condition Status Problem Hyperlipidemia E78.5 Active Problem Essential hypertension with goal blood pressure less than 130\/80 I10 Active Problem Fatty liver disease, nonalcoholic K76.0 Active Problem Pulmonary emphysema, unspecified emphysema type J43.9 Active Problem Heartburn R12 Active Problem High risk medication use Z79.899 Active Problem Emotional lability R45.86 Active Medications Medication Code System Code Instructions Start Date End Date Status Dosage Welchol [facility][NOTE 3] [address]-95 625 MG Orally Twice a day October 29, 2015 3 tablets with meals Results No Known Results Summary Purpose eClinicalWorks Submission
--- OUTSIDE RECORDS SUMMARY | 2019-02-08 10:48 | XMS REPORT ---
Author Author WILDA PATEL [facility] Address [address] [place] [address] Care Team Providers Care Music Education Director Name Role Phone WILDA PATEL Unavailable PROBLEMS Type Condition ICD9-CM Code [id number] Code Onset Dates Condition Status SNOMED Code Assessment Fatty liver disease, nonalcoholic K76.0 Mar, Active 106999598 Problem Pulmonary emphysema, unspecified emphysema type J43.9 Active 97910256 Problem Heartburn R12 Active 51897625 Problem Psoriasis L40.9 Active 1863828 Problem Fatty liver disease, nonalcoholic K76.0 Active 150468348 Problem High risk medication use Z79.899 Active 095273300 Problem Emotional lability R45.86 Active 65432246 Problem Hyperlipidemia E78.5 Active 42469741 Problem Essential hypertension with goal blood pressure less than 130\/80 I10 Active 14600590 ALLERGIES Substance Reaction Event Type Date Status Codeine Unknown Drug Allergy Mar, Active SOCIAL HISTORY No smoking Hx information available PLAN OF CARE VITAL SIGNS Height 63 in 2016-03-30 Weight 172.8 lbs 2016-03-30 Heart Rate 87 bpm 2016-03-30 Respiratory Rate 18 2016-03-30 BMI 30.61 kg/m2 2016-03-30 Blood pressure systolic 130 mmHg 2016-03-30 Blood pressure diastolic 78 mmHg 2016-03-30 MEDICATIONS Medication Instructions Dosage Frequency Start Date End Date Duration Status Metformin HCl 500 MG Orally 2 times a day take 1 tablet by Oral route 2 times per day with morning and evening meals 12h Active Metoprolol Succinate ER 50 mg Orally Once a day 1 tablet 24h Sep, Active Celexa 40 MG Orally Once a day 1 tablet 24h 90 Active Multivitamins Active Cyclobenzaprine HCl 10 MG Orally 2 times a day as needed for pain 1 tablet Oct, Active Albuterol Sulfate 90 mcg/actuation 2 puffs by Inhalation route every 6 hours as needed PRN cough or wheezing Apr, Active BusPIRone HCl 10 MG Orally Twice a day 1 tablet for anxiety 12h Active Metoprolol Tartrate 50 MG TAKE ONE TABLET BY MOUTH ONCE DAILY WITH MEALS. 90 Active Mirtazapine 30 MG TAKE ONE TABLET BY MOUTH DAILY BEFORE BEDTIME 30 Active Proventil HFA 108 (90 Base) MCG/ACT Inhalation 4 times a day 2 puffs as needed 6h Active Lisinopril 10 MG TAKE ONE TABLET BY MOUTH ONCE DAILY. 90 Active Loratadine 10 MG TAKE ONE TABLET BY MOUTH ONCE DAILY 30 Active Remeron 30 MG Orally Once a day take 1 tablet by Oral route before bedtime 1 time per day 24h Active Ultram 50 mg Orally 2 times a day 1 tablet as needed 12h Active Atorvastatin Calcium 40 MG Orally Once a day 1 tablet 24h Active Claritin 10 MG 1 tablet Once a day Orally 30 day(s) 30 Active Betamethasone Valerate 0.1 % Externally twice a day 1 application to affected area 12h 14 Mar, 2016 Mar, 14 days Active Omeprazole 40 MG TAKE ONE CAPSULE BY MOUTH ONCE DAILY BEFORE A MEAL. 90 Active Tricor 145 MG TAKE 1 TABLET BY MOUTH ONCE A DAY ORALLY 90 Active RESULTS No Results PROCEDURES Procedure Date Ordered Related Diagnosis Body Site Office Visit, Est Pt., Level 4 Mar 30, 2016 IMMUNIZATIONS No Known Immunizations
--- OUTSIDE RECORDS SUMMARY | 2019-02-08 10:49 | XMS REPORT | Continuity of Care Document ---
Author Organization Unknown Address Unknown Allergies Active Description Code Type Severity Reaction Onset Reported/Identified Relationship to Patient Clinical Status Yes codeine Drug Allergy N/A N/A 06/18/2013 Yes Ultram 50 mg tablet Drug Allergy N/A N/A 08/15/2013 Yes No Allergy Information Available [id number] Drug Allergy Unknown N/A 05/25/2015 Yes codeine [id number] Drug Allergy Unknown heart race 01/30/2019 Medications There is no data. Problems Date Dx Coded Attending Type Code Diagnosis Diagnosed By 02/05/2011 305.1 NONDEPENDENT TOBACCO USE DISORDER 02/05/2011 627.8 PERIMENOPAUSE 02/05/2011 783.1 Abnormal Weight Gain 02/05/2011 792.1 NONSPECIFIC ABNORMAL FINDINGS IN STOOL CONTENTS 02/05/2011 799.24 EMOTIONAL LABILITY 02/05/2011 V72.31 CONTENT COORDINATOR EXAM, ROUTINE 02/05/2011 305.1 NONDEPENDENT TOBACCO USE DISORDER 02/05/2011 627.8 PERIMENOPAUSE 02/05/2011 783.1 Abnormal Weight Gain 02/05/2011 792.1 NONSPECIFIC ABNORMAL FINDINGS IN STOOL CONTENTS 02/05/2011 799.24 EMOTIONAL LABILITY 02/05/2011 V72.31 CONTENT COORDINATOR EXAM, ROUTINE 02/05/2011 305.1 NONDEPENDENT TOBACCO USE DISORDER 02/05/2011 627.8 PERIMENOPAUSE 02/05/2011 783.1 Abnormal Weight Gain 02/05/2011 792.1 NONSPECIFIC ABNORMAL FINDINGS IN STOOL CONTENTS 02/05/2011 799.24 emotional lability 02/05/2011 V72.31 CONTENT COORDINATOR EXAM, ROUTINE 02/05/2011 ARIANA LARSEN DO 305.1 NONDEPENDENT TOBACCO USE DISORDER 02/05/2011 ARIANA LARSEN DO 627.8 PERIMENOPAUSE 02/05/2011 ARIANA LARSEN DO 783.1 Abnormal Weight Gain 02/05/2011 LARSEN DO, ARIANA K 792.1 NONSPECIFIC ABNORMAL FINDINGS IN STOOL CONTENTS 02/05/2011 LARSEN DO, ARIANA K 799.24 emotional lability 02/05/2011 LARSEN DO, ARIANA K V72.31 CONTENT COORDINATOR EXAM, ROUTINE 02/05/2011 EATON BUDDHIST MONK WILDA L 305.1 NONDEPENDENT TOBACCO USE DISORDER 02/05/2011 EATON BUDDHIST MONK, WILDA L 627.8 PERIMENOPAUSE 02/05/2011 EATON BUDDHIST MONK, WILDA L 783.1 Abnormal Weight Gain 02/05/2011 EATON BUDDHIST MONK, WILDA L 792.1 NONSPECIFIC ABNORMAL FINDINGS IN STOOL CONTENTS 02/05/2011 EATON BUDDHIST MONK, WILDA L 799.24 emotional lability 02/05/2011 EATON BUDDHIST MONK, WILDA L V72.31 CONTENT COORDINATOR EXAM, ROUTINE 02/05/2011 EATON BUDDHIST MONK, WILDA L 305.1 NONDEPENDENT TOBACCO USE DISORDER 02/05/2011 EATON BUDDHIST MONK, WILDA L 627.8 PERIMENOPAUSE 02/05/2011 EATON BUDDHIST MONK, WILDA L 783.1 Abnormal Weight Gain 02/05/2011 EATON BUDDHIST MONK, WILDA L 792.1 NONSPECIFIC ABNORMAL FINDINGS IN STOOL CONTENTS 02/05/2011 EATON BUDDHIST MONK, WILDA L 799.24 emotional lability 02/05/2011 EATON BUDDHIST MONK, WILDA L V72.31 CONTENT COORDINATOR EXAM, ROUTINE 02/05/2011 EATON BUDDHIST MONK, WILDA L 305.1 NONDEPENDENT TOBACCO USE DISORDER 02/05/2011 EATON BUDDHIST MONK, WILDA L 627.8 PERIMENOPAUSE 02/05/2011 EATON BUDDHIST MONK, WILDA L 783.1 Abnormal Weight Gain 02/05/2011 EATON BUDDHIST MONK, WILDA L 792.1 NONSPECIFIC ABNORMAL FINDINGS IN STOOL CONTENTS 02/05/2011 EATON BUDDHIST MONK, WILDA L 799.24 emotional lability 02/05/2011 EATON BUDDHIST MONK, WILDA L V72.31 CONTENT COORDINATOR EXAM, ROUTINE 02/05/2011 EATON BUDDHIST MONK, WILDA L 305.1 NONDEPENDENT TOBACCO USE DISORDER 02/05/2011 EATON BUDDHIST MONK, WILDA L 627.8 PERIMENOPAUSE 02/05/2011 EATON BUDDHIST MONK, WILDA L 783.1 Abnormal Weight Gain 02/05/2011 EATON BUDDHIST MONK, WILDA L 792.1 NONSPECIFIC ABNORMAL FINDINGS IN STOOL CONTENTS 02/05/2011 EATON BUDDHIST MONK, WILDA L 799.24 emotional lability 02/05/2011 EATON BUDDHIST MONK, WILDA L V72.31 CONTENT COORDINATOR EXAM, ROUTINE 02/05/2011 LARSEN DO, ARIANA K 305.1 NONDEPENDENT TOBACCO USE DISORDER 02/05/2011 LARSEN DO, ARIANA K 627.8 PERIMENOPAUSE 02/05/2011 LARSEN DO, ARIANA K 783.1 Abnormal Weight Gain 02/05/2011 LARSEN DO, ARIANA K 792.1 NONSPECIFIC ABNORMAL FINDINGS IN STOOL CONTENTS 02/05/2011 LARSEN DO, ARIANA K 799.24 emotional lability 02/05/2011 LARSEN DO, ARIANA K V72.31 CONTENT COORDINATOR EXAM, ROUTINE 02/05/2011 EATON BUDDHIST MONK, WILDA L 305.1 NONDEPENDENT TOBACCO USE DISORDER 02/05/2011 EATON BUDDHIST MONK, WILDA L 627.8 PERIMENOPAUSE 02/05/2011 EATON BUDDHIST MONK, WILDA L 783.1 Abnormal Weight Gain 02/05/2011 EATON BUDDHIST MONK, WILDA L 792.1 NONSPECIFIC ABNORMAL FINDINGS IN STOOL CONTENTS 02/05/2011 EATON BUDDHIST MONK, WILDA L 799.24 emotional lability 02/05/2011 EATON BUDDHIST MONK, WILDA L V72.31 CONTENT COORDINATOR EXAM, ROUTINE 02/05/2011 EATON BUDDHIST MONK, WILDA L 305.1 NONDEPENDENT TOBACCO USE DISORDER 02/05/2011 EATON BUDDHIST MONK, WILDA L 627.8 PERIMENOPAUSE 02/05/2011 EATON BUDDHIST MONK, WILDA L 783.1 Abnormal Weight Gain 02/05/2011 EATON BUDDHIST MONK, WILDA L 792.1 NONSPECIFIC ABNORMAL FINDINGS IN STOOL CONTENTS 02/05/2011 EATON BUDDHIST MONK, WILDA L 799.24 emotional lability 02/05/2011 EATON BUDDHIST MONK, WILDA L V72.31 CONTENT COORDINATOR EXAM, ROUTINE 02/05/2011 EATON BUDDHIST MONK, WILDA L 305.1 NONDEPENDENT TOBACCO USE DISORDER 02/05/2011 EATON BUDDHIST MONK, WILDA L 627.8 PERIMENOPAUSE 02/05/2011 EATON BUDDHIST MONK, WILDA L 783.1 Abnormal Weight Gain 02/05/2011 EATON BUDDHIST MONK, WILDA L 792.1 NONSPECIFIC ABNORMAL FINDINGS IN STOOL CONTENTS 02/05/2011 KASSANDRA PATEL APRNSON L 799.24 emotional lability 02/05/2011 WILDA PATEL APRN L V72.31 CONTENT COORDINATOR EXAM, ROUTINE 02/05/2011 KENROY ZHOU DDS 305.1 NONDEPENDENT TOBACCO USE DISORDER 02/05/2011 WINNIE JUNGSKENROY 627.8 PERIMENOPAUSE 02/05/2011 WINNIE JUNGSKENROY 783.1 Abnormal Weight Gain 02/05/2011 WINNIE JUNGSKENROY 792.1 NONSPECIFIC ABNORMAL FINDINGS IN STOOL CONTENTS 02/05/2011 WINNIE JUNGSKENROY 799.24 emotional lability 02/05/2011 WINNIE JUNGSKENROY V72.31 CONTENT COORDINATOR EXAM, ROUTINE 02/05/2011 LARSEN DO ARIANA K 305.1 NONDEPENDENT TOBACCO USE DISORDER 02/05/2011 LARSEN DO, ARIANA K 627.8 PERIMENOPAUSE 02/05/2011 LARSEN DO ARIANA K 783.1 Abnormal Weight Gain 02/05/2011 LARSEN DO ARIANA K 792.1 NONSPECIFIC ABNORMAL FINDINGS IN STOOL CONTENTS 02/05/2011 LARSEN DO, ARIANA K 799.24 emotional lability 02/05/2011 LARSEN DO, ARIANA K V72.31 CONTENT COORDINATOR EXAM, ROUTINE 02/05/2011 KENROY ZHOU DDS 305.1 NONDEPENDENT TOBACCO USE DISORDER 02/05/2011 WINNIE JUNGSKENROY 627.8 PERIMENOPAUSE 02/05/2011 WINNIE JUNGSKENROY 783.1 Abnormal Weight Gain 02/05/2011 WINNIE JUNGSKENROY 792.1 NONSPECIFIC ABNORMAL FINDINGS IN STOOL CONTENTS 02/05/2011 WINNIE JUNGSKENROY 799.24 emotional lability 02/05/2011 WINNIE JUNGSKENROY V72.31 CONTENT COORDINATOR EXAM, ROUTINE 02/05/2011 WINNIE JUNGSKENROY 305.1 NONDEPENDENT TOBACCO USE DISORDER 02/05/2011 WINNIE JUNGSKENROY 627.8 PERIMENOPAUSE 02/05/2011 WINNIE JUNGSKENROY 783.1 Abnormal Weight Gain 02/05/2011 WINNIE JUNGSKENROY 792.1 NONSPECIFIC ABNORMAL FINDINGS IN STOOL CONTENTS 02/05/2011 WINNIE JUNGSKENROY 799.24 emotional lability 02/05/2011 WINNIE DDSKENROY V72.31 CONTENT COORDINATOR EXAM, ROUTINE 02/05/2011 LARSEN DO, ARIANA K 305.1 NONDEPENDENT TOBACCO USE DISORDER 02/05/2011 LARSEN DO, ARIANA K 627.8 PERIMENOPAUSE 02/05/2011 LARSEN DO, ARIANA K 783.1 Abnormal Weight Gain 02/05/2011 LARSEN DO, ARIANA K 792.1 NONSPECIFIC ABNORMAL FINDINGS IN STOOL CONTENTS 02/05/2011 LARSEN DO, ARIANA K 799.24 emotional lability 02/05/2011 LARSEN DO, ARIANA K V72.31 CONTENT COORDINATOR EXAM, ROUTINE 02/05/2011 LARSEN DO, ARIANA K 305.1 NONDEPENDENT TOBACCO USE DISORDER 02/05/2011 LARSEN DO, ARIANA K 627.8 PERIMENOPAUSE 02/05/2011 LARSEN DO, ARIANA K 783.1 Abnormal Weight Gain 02/05/2011 LARSEN DO, ARIANA K 792.1 NONSPECIFIC ABNORMAL FINDINGS IN STOOL CONTENTS 02/05/2011 LARSEN DO, ARIANA K 799.24 emotional lability 02/05/2011 LARSEN DO, ARIANA K V72.31 CONTENT COORDINATOR EXAM, ROUTINE 02/05/2011 RAJDENNISE BUDDHIST MONK, JEANINE A 305.1 NONDEPENDENT TOBACCO USE DISORDER 02/05/2011 RAJDENNISE BUDDHIST MONK, JEANINE A 627.8 PERIMENOPAUSE 02/05/2011 RAJOTTE BUDDHIST MONK, JEANINE A 783.1 Abnormal Weight Gain 02/05/2011 RAJOTTE BUDDHIST MONK, JEANINE A 792.1 NONSPECIFIC ABNORMAL FINDINGS IN STOOL CONTENTS 02/05/2011 RAJOTTE BUDDHIST MONK, JEANINE A 799.24 emotional lability 02/05/2011 RAJOTTE BUDDHIST MONK, JEANINE A V72.31 CONTENT COORDINATOR EXAM, ROUTINE 02/05/2011 EATON BUDDHIST MONK, WILDA L 305.1 NONDEPENDENT TOBACCO USE DISORDER 02/05/2011 EATON BUDDHIST MONK, WILDA L 627.8 PERIMENOPAUSE 02/05/2011 EATON BUDDHIST MONK WILDA L 783.1 Abnormal Weight Gain 02/05/2011 EATON BUDDHIST MONK, WILDA L 792.1 NONSPECIFIC ABNORMAL FINDINGS IN STOOL CONTENTS 02/05/2011 EATON BUDDHIST MONK, WILDA L 799.24 emotional lability 02/05/2011 WILDA PATEL APRN L V72.31 CONTENT COORDINATOR EXAM, ROUTINE 02/05/2011 WILDA PATEL APRN L 305.1 NONDEPENDENT TOBACCO USE DISORDER 02/05/2011 WILDA PATEL APRN L 627.8 PERIMENOPAUSE 02/05/2011 WILDA PATEL APRN L 783.1 Abnormal Weight Gain 02/05/2011 WILDA PATEL APRN L 792.1 NONSPECIFIC ABNORMAL FINDINGS IN STOOL CONTENTS 02/05/2011 WILDA PATEL APRN L 799.24 emotional lability 02/05/2011 WILDA PATEL APRN L V72.31 CONTENT COORDINATOR EXAM, ROUTINE 02/05/2011 WILDA PATEL APRN L 305.1 NONDEPENDENT TOBACCO USE DISORDER 02/05/2011 WILDA PATEL APRN L 627.8 PERIMENOPAUSE 02/05/2011 WILDA PATEL APRN L 783.1 Abnormal Weight Gain 02/05/2011 WILDA PATEL APRN L 792.1 NONSPECIFIC ABNORMAL FINDINGS IN STOOL CONTENTS 02/05/2011 WILDA PATEL APRN L 799.24 emotional lability 02/05/2011 WILDA PATEL APRN L V72.31 CONTENT COORDINATOR EXAM, ROUTINE 02/05/2011 CANDACE FRANCISCO HAIDER 305.1 NONDEPENDENT TOBACCO USE DISORDER 02/05/2011 MARIAFRANCISCO Fox APRN 627.8 PERIMENOPAUSE 02/05/2011 CANDACE KAISERFRANCISCO Blackwell 783.1 Abnormal Weight Gain 02/05/2011 MARIAFRANCISCO Fox APRN 792.1 NONSPECIFIC ABNORMAL FINDINGS IN STOOL CONTENTS 02/05/2011 FRANCISCO MARIA APRN 799.24 emotional lability 02/05/2011 CANDACE KAISERFRANCISCO Blackwell R V72.31 CONTENT COORDINATOR EXAM, ROUTINE 02/05/2011 LARSEN DO, ARIANA K 305.1 NONDEPENDENT TOBACCO USE DISORDER 02/05/2011 LARSEN DO, ARIANA K 627.8 PERIMENOPAUSE 02/05/2011 LARSEN DO, ARIANA K 783.1 Abnormal Weight Gain 02/05/2011 LARSEN DO, ARIANA K 792.1 NONSPECIFIC ABNORMAL FINDINGS IN STOOL CONTENTS 02/05/2011 LARSEN DO, ARIANA K 799.24 emotional lability 02/05/2011 LARSEN DO, ARIANA K V72.31 CONTENT COORDINATOR EXAM, ROUTINE 02/05/2011 RYANWILDA JEAN-BAPTISTE APRN L 305.1 NONDEPENDENT TOBACCO USE DISORDER 02/05/2011 WILDA PATEL APRN L 627.8 PERIMENOPAUSE 02/05/2011 WILDA PATEL APRN L 783.1 Abnormal Weight Gain 02/05/2011 RYANWILDA JEAN-BAPTISTE APRN L 792.1 NONSPECIFIC ABNORMAL FINDINGS IN STOOL CONTENTS 02/05/2011 WILDA PATEL APRN L 799.24 emotional lability 02/05/2011 RYANWILDA JEAN-BAPTISTE APRN L V72.31 CONTENT COORDINATOR EXAM, ROUTINE 02/10/2011 277.7 DYSMETABOLIC SYNDROME X 02/10/2011 564.00 Constipation 02/10/2011 789.02 Abdominal Pain In The Left Upper Belly (luq) 02/10/2011 277.7 DYSMETABOLIC SYNDROME X 02/10/2011 564.00 Constipation 02/10/2011 789.02 Abdominal Pain In The Left Upper Belly (luq) 02/10/2011 277.7 DYSMETABOLIC SYNDROME X 02/10/2011 564.00 Constipation 02/10/2011 789.02 Abdominal Pain In The Left Upper Belly (luq) 02/10/2011 ARIANA LARSEN DO K 277.7 DYSMETABOLIC SYNDROME X 02/10/2011 ARIANA LARSEN DO K 564.00 Constipation 02/10/2011 ARIANA LARSEN DO K 789.02 Abdominal Pain In The Left Upper Belly (luq) 02/10/2011 WILDA PATEL APRN L 277.7 DYSMETABOLIC SYNDROME X 02/10/2011 WILDA PATEL APRN L 564.00 Constipation 02/10/2011 WILDA PATEL APRN L 789.02 Abdominal Pain In The Left Upper Belly (luq) 02/10/2011 KASSANDRA PATEL APRNSON L 277.7 DYSMETABOLIC SYNDROME X 02/10/2011 WILDA PATEL APRN L 564.00 Constipation 02/10/2011 WILDA PATEL APRN L 789.02 Abdominal Pain In The Left Upper Belly (luq) 02/10/2011 KASSANDRA PATEL APRNSON L 277.7 DYSMETABOLIC SYNDROME X 02/10/2011 EATON BUDDHIST MONK, WILDA L 564.00 Constipation 02/10/2011 EATON BUDDHIST MONK, WILDA L 789.02 Abdominal Pain In The Left Upper Belly (luq) 02/10/2011 EATON BUDDHIST MONK, WILDA L 277.7 DYSMETABOLIC SYNDROME X 02/10/2011 EATON BUDDHIST MONK, WILDA L 564.00 Constipation 02/10/2011 EATON BUDDHIST MONK, WILDA L 789.02 Abdominal Pain In The Left Upper Belly (luq) 02/10/2011 LARSEN DO, ARIANA K 277.7 DYSMETABOLIC SYNDROME X 02/10/2011 LARSEN DO, ARIANA K 564.00 Constipation 02/10/2011 LARSEN DO, ARIANA K 789.02 Abdominal Pain In The Left Upper Belly (luq) 02/10/2011 EATON BUDDHIST MONK, WILDA L 277.7 DYSMETABOLIC SYNDROME X 02/10/2011 EATON BUDDHIST MONK, WILDA L 564.00 Constipation 02/10/2011 EATON BUDDHIST MONK, WILDA L 789.02 Abdominal Pain In The Left Upper Belly (luq) 02/10/2011 EATON BUDDHIST MONK, WILDA L 277.7 DYSMETABOLIC SYNDROME X 02/10/2011 EATON BUDDHIST MONK, WILDA L 564.00 Constipation 02/10/2011 EATON BUDDHIST MONK, WILDA L 789.02 Abdominal Pain In The Left Upper Belly (luq) 02/10/2011 EATON BUDDHIST MONK, WILDA L 277.7 DYSMETABOLIC SYNDROME X 02/10/2011 EATON BUDDHIST MONK, WILDA L 564.00 Constipation 02/10/2011 EATON BUDDHIST MONK, WILDA L 789.02 Abdominal Pain In The Left Upper Belly (luq) 02/10/2011 WINNIE DDS, KENROY D 277.7 DYSMETABOLIC SYNDROME X 02/10/2011 WINNIE DDS, KENROY D 564.00 Constipation 02/10/2011 WINNIE DDS, KENROY D 789.02 Abdominal Pain In The Left Upper Belly (luq) 02/10/2011 LARSEN DO, ARIANA K 277.7 DYSMETABOLIC SYNDROME X 02/10/2011 LARSEN DO, ARIANA K 564.00 Constipation 02/10/2011 LARSEN DO, ARIANA K 789.02 Abdominal Pain In The Left Upper Belly (luq) 02/10/2011 WINNIE DDS, KENROY D 277.7 DYSMETABOLIC SYNDROME X 02/10/2011 WINNIE DDS, KENROY D 564.00 Constipation 02/10/2011 WINNIE DDS, KENROY D 789.02 Abdominal Pain In The Left Upper Belly (luq) 02/10/2011 WINNIE DDS, KENROY D 277.7 DYSMETABOLIC SYNDROME X 02/10/2011 WINNIE DDS, KENROY D 564.00 Constipation 02/10/2011 WINNIE DDS, KENROY D 789.02 Abdominal Pain In The Left Upper Belly (luq) 02/10/2011 LARSEN DO, ARIANA K 277.7 DYSMETABOLIC SYNDROME X 02/10/2011 LARSEN DO, ARIANA K 564.00 Constipation 02/10/2011 LARSEN DO, ARIANA K 789.02 Abdominal Pain In The Left Upper Belly (luq) 02/10/2011 LARSEN DO, ARIANA K 277.7 DYSMETABOLIC SYNDROME X 02/10/2011 LARSEN DO, ARIANA K 564.00 Constipation 02/10/2011 LARSEN DO, ARIANA K 789.02 Abdominal Pain In The Left Upper Belly (luq) 02/10/2011 RAJOTTE BUDDHIST MONK, JEANINE A 277.7 DYSMETABOLIC SYNDROME X 02/10/2011 RAJOTTE BUDDHIST MONK, JEANINE A 564.00 Constipation 02/10/2011 RAJOTTE BUDDHIST MONK, JEANINE A 789.02 Abdominal Pain In The Left Upper Belly (luq) 02/10/2011 EATON BUDDHIST MONK, WILDA L 277.7 DYSMETABOLIC SYNDROME X 02/10/2011 EATON BUDDHIST MONK, WILDA L 564.00 Constipation 02/10/2011 EATON BUDDHIST MONK, WILDA L 789.02 Abdominal Pain In The Left Upper Belly (luq) 02/10/2011 EATON BUDDHIST MONK, WILDA L 277.7 DYSMETABOLIC SYNDROME X 02/10/2011 EATON BUDDHIST MONK, WILDA L 564.00 Constipation 02/10/2011 EATON BUDDHIST MONK, WILDA L 789.02 Abdominal Pain In The Left Upper Belly (luq) 02/10/2011 EATON BUDDHIST MONK, WILDA L 277.7 DYSMETABOLIC SYNDROME X 02/10/2011 EATON BUDDHIST MONK, WILDA L 564.00 Constipation 02/10/2011 EATON BUDDHIST MONK, WILDA L 789.02 Abdominal Pain In The Left Upper Belly (luq) 02/10/2011 CANDACE HAIDER FRANCISCO R 277.7 DYSMETABOLIC SYNDROME X 02/10/2011 CANDACE HAIDERFRANCISCO R 564.00 Constipation 02/10/2011 CANDACE HAIDER FRANCISCO Tang 789.02 Abdominal Pain In The Left Upper Belly (luq) 02/10/2011 LARSEN DO, ARIANA K 277.7 DYSMETABOLIC SYNDROME X 02/10/2011 LARSEN DO, ARIANA K 564.00 Constipation 02/10/2011 LARSEN DO, ARIANA K 789.02 Abdominal Pain In The Left Upper Belly (luq) 02/10/2011 EATESTIVEN HAIDER WILDA L 277.7 DYSMETABOLIC SYNDROME X 02/10/2011 EATON BUDDHIST MONK, WILDA L 564.00 Constipation 02/10/2011 EATON BUDDHIST MONK, WILDA L 789.02 Abdominal Pain In The Left Upper Belly (luq) 03/01/2011 787.91 Diarrhea 03/01/2011 787.91 Diarrhea 03/01/2011 787.91 Diarrhea 03/01/2011 LARSEN DO, ARIANA K 787.91 Diarrhea 03/01/2011 EATON BUDDHIST MONK, WILDA L 787.91 Diarrhea 03/01/2011 EATON BUDDHIST MONK, WILDA L 787.91 Diarrhea 03/01/2011 EATON BUDDHIST MONK, WILDA L 787.91 Diarrhea 03/01/2011 EATON BUDDHIST MONK, WILDA L 787.91 Diarrhea 03/01/2011 LARSEN DO, ARIANA K 787.91 Diarrhea 03/01/2011 EATON BUDDHIST MONK, WILDA L 787.91 Diarrhea 03/01/2011 EATON BUDDHIST MONK, WILDA L 787.91 Diarrhea 03/01/2011 EATON BUDDHIST MONK, WILDA L 787.91 Diarrhea 03/01/2011 WINNIE DDS, KENROY D 787.91 Diarrhea 03/01/2011 LARSEN DO, ARIANA K 787.91 Diarrhea 03/01/2011 WINNIE DDS, KENROY D 787.91 Diarrhea 03/01/2011 WINNIE DDS, KENROY D 787.91 Diarrhea 03/01/2011 LARSEN DO, ARIANA K 787.91 Diarrhea 03/01/2011 LARSEN DO, ARIANA K 787.91 Diarrhea 03/01/2011 RAJDENNISE BUDDHIST MONK, JEANINE A 787.91 Diarrhea 03/01/2011 EATON BUDDHIST MONK, WILDA L 787.91 Diarrhea 03/01/2011 EATON BUDDHIST MONK, WILDA L 787.91 Diarrhea 03/01/2011 EATON BUDDHIST MONK, WILDA L 787.91 Diarrhea 03/01/2011 MARIA BUDDHIST MONKFRANCISCO 787.91 Diarrhea 03/01/2011 LARSEN DO, ARIANA K 787.91 Diarrhea 03/01/2011 EATON BUDDHIST MONK, WILDA L 787.91 Diarrhea 11/07/2012 692.9 DERMATITIS 11/07/2012 692.9 DERMATITIS 11/07/2012 692.9 DERMATITIS 11/07/2012 LARSEN DO, ARIANA K 692.9 DERMATITIS 11/07/2012 EATON BUDDHIST MONK, WILDA L 692.9 DERMATITIS 11/07/2012 EATON BUDDHIST MONK, WILDA L 692.9 DERMATITIS 11/07/2012 EATON BUDDHIST MONK, WILDA L 692.9 DERMATITIS 11/07/2012 EATON BUDDHIST MONK, WILDA L 692.9 DERMATITIS 11/07/2012 LARSEN DO, ARIANA K 692.9 DERMATITIS 11/07/2012 EATON BUDDHIST MONK, WILDA L 692.9 DERMATITIS 11/07/2012 EATON BUDDHIST MONK, WILDA L 692.9 DERMATITIS 11/07/2012 EATON BUDDHIST MONK, WILDA L 692.9 DERMATITIS 11/07/2012 WINNIE DDS, KENROY D 692.9 DERMATITIS 11/07/2012 LARSEN DO, ARIANA K 692.9 DERMATITIS 11/07/2012 WINNIE DDS, KENROY D 692.9 DERMATITIS 11/07/2012 WINNIE DDS, KENROY D 692.9 DERMATITIS 11/07/2012 LARSEN DO, ARIANA K 692.9 DERMATITIS 11/07/2012 LARSEN DO, ARIANA K 692.9 DERMATITIS 11/07/2012 RAJDENNISE BUDDHIST MONK, JEANIEN A 692.9 DERMATITIS 11/07/2012 EATON BUDDHIST MONK, WILDA L 692.9 DERMATITIS 11/07/2012 EATON BUDDHIST MONK, WIDLA L 692.9 DERMATITIS 11/07/2012 EATON BUDDHIST MONK, WILDA L 692.9 DERMATITIS 11/07/2012 FRANCISCO MARIA APRN 692.9 DERMATITIS 11/07/2012 LARSEN DO, ARIANA K 692.9 DERMATITIS 11/07/2012 EATON BUDDHIST MONK, WILDA L 692.9 DERMATITIS 11/21/2012 695.2 ERYTHEMA NODOSUM 11/21/2012 695.2 ERYTHEMA NODOSUM 11/21/2012 LARSEN DO, ARIANA K 695.2 ERYTHEMA NODOSUM 11/21/2012 EATON BUDDHIST MONK, WILDA L 695.2 ERYTHEMA NODOSUM 11/21/2012 EATON BUDDHIST MONK, WILDA L 695.2 ERYTHEMA NODOSUM 11/21/2012 EATON BUDDHIST MONK, WILDA L 695.2 ERYTHEMA NODOSUM 11/21/2012 EATON BUDDHIST MONK, WILDA L 695.2 ERYTHEMA NODOSUM 11/21/2012 LARSEN DO, ARIANA K 695.2 ERYTHEMA NODOSUM 11/21/2012 EATON BUDDHIST MONK, WILDA L 695.2 ERYTHEMA NODOSUM 11/21/2012 EATON BUDDHIST MONK, WILDA L 695.2 ERYTHEMA NODOSUM 11/21/2012 EATON BUDDHIST MONK, WILDA L 695.2 ERYTHEMA NODOSUM 11/21/2012 WINNIE DDS, KENROY Ferrari 695.2 ERYTHEMA NODOSUM 11/21/2012 LARSEN DO, ARIANA K 695.2 ERYTHEMA NODOSUM 11/21/2012 WINNIE DDS, KENROY Ferrari 695.2 ERYTHEMA NODOSUM 11/21/2012 WINNIE DDS, KENROY Ferrari 695.2 ERYTHEMA NODOSUM 11/21/2012 LARSEN DO, ARIANA K 695.2 ERYTHEMA NODOSUM 11/21/2012 LARSEN DO, ARIANA K 695.2 ERYTHEMA NODOSUM 11/21/2012 LUIZ BUDDHIST MONK, JEANNIE A 695.2 ERYTHEMA NODOSUM 11/21/2012 EATON BUDDHIST MONK, WILDA L 695.2 ERYTHEMA NODOSUM 11/21/2012 EATON BUDDHIST MONK, WILDA L 695.2 ERYTHEMA NODOSUM 11/21/2012 EATON BUDDHIST MONK, WILDA L 695.2 ERYTHEMA NODOSUM 11/21/2012 FRANCISCO MARIA APRN 695.2 ERYTHEMA NODOSUM 11/21/2012 LARSEN DO, ARIANA K 695.2 ERYTHEMA NODOSUM 11/21/2012 EATON BUDDHIST MONK, WILDA L 695.2 ERYTHEMA NODOSUM 02/22/2013 338.29 CHRONIC PAIN 02/22/2013 401.9 ESSENTIAL HYPERTENSION 02/22/2013 791.0 MICROALBUMINURIA 02/22/2013 V58.69 HIGH RISK MEDICATION (LONG-TERM) 02/22/2013 LARSEN DO, ARIANA K 338.29 CHRONIC PAIN 02/22/2013 LARSEN DO, ARIANA K 401.9 ESSENTIAL HYPERTENSION 02/22/2013 LARSEN DO, ARIANA K 791.0 MICROALBUMINURIA 02/22/2013 ALRSEN DO, ARIANA K V58.69 HIGH RISK MEDICATION (LONG-TERM) 02/22/2013 EATON BUDDHIST MONK, WILDA L 338.29 CHRONIC PAIN 02/22/2013 EATON BUDDHIST MONK, WILDA L 401.9 ESSENTIAL HYPERTENSION 02/22/2013 EATON BUDDHIST MONK, WILDA L 791.0 MICROALBUMINURIA 02/22/2013 EATON BUDDHIST MONK, WILDA L V58.69 HIGH RISK MEDICATION (LONG-TERM) 02/22/2013 EATON BUDDHIST MONK, WILDA L 338.29 CHRONIC PAIN 02/22/2013 EATON BUDDHIST MONK, WILDA L 401.9 ESSENTIAL HYPERTENSION 02/22/2013 EATON BUDDHIST MONK, WILDA L 791.0 MICROALBUMINURIA 02/22/2013 EATON BUDDHIST MONK, WILDA L V58.69 HIGH RISK MEDICATION (LONG-TERM) 02/22/2013 EATON BUDDHIST MONK, WILDA L 338.29 CHRONIC PAIN 02/22/2013 EATON BUDDHIST MONK, WILDA L 401.9 ESSENTIAL HYPERTENSION 02/22/2013 EATON BUDDHIST MONK, WILDA L 791.0 MICROALBUMINURIA 02/22/2013 EATON BUDDHIST MONK, WILDA L V58.69 HIGH RISK MEDICATION (LONG-TERM) 02/22/2013 EATON BUDDHIST MONK, WILDA L 338.29 CHRONIC PAIN 02/22/2013 EATON BUDDHIST MONK, WILDA L 401.9 ESSENTIAL HYPERTENSION 02/22/2013 EATON BUDDHIST MONK, WILDA L 791.0 MICROALBUMINURIA 02/22/2013 EATON BUDDHIST MONK, WILDA L V58.69 HIGH RISK MEDICATION (LONG-TERM) 02/22/2013 LARSEN DO, ARIANA K 338.29 CHRONIC PAIN 02/22/2013 LARSEN DO, ARIANA K 401.9 ESSENTIAL HYPERTENSION 02/22/2013 LARSEN DO, ARIANA K 791.0 MICROALBUMINURIA 02/22/2013 LARSEN DO, ARIANA K V58.69 HIGH RISK MEDICATION (LONG-TERM) 02/22/2013 EATON BUDDHIST MONK, WILDA L 338.29 CHRONIC PAIN 02/22/2013 EATON BUDDHIST MONK, WILDA L 401.9 ESSENTIAL HYPERTENSION 02/22/2013 EATON BUDDHIST MONK, WILDA L 791.0 MICROALBUMINURIA 02/22/2013 EATON BUDDHIST MONK, WILDA L V58.69 HIGH RISK MEDICATION (LONG-TERM) 02/22/2013 EATON BUDDHIST MONK, WILDA L 338.29 CHRONIC PAIN 02/22/2013 EATON BUDDHIST MONK, WILDA L 401.9 ESSENTIAL HYPERTENSION 02/22/2013 EATON BUDDHIST MONK, WILDA L 791.0 MICROALBUMINURIA 02/22/2013 EATON BUDDHIST MONK, WILDA L V58.69 HIGH RISK MEDICATION (LONG-TERM) 02/22/2013 EATON BUDDHIST MONK, WILDA L 338.29 CHRONIC PAIN 02/22/2013 EATON BUDDHIST MONK, WILDA L 401.9 ESSENTIAL HYPERTENSION 02/22/2013 EATON BUDDHIST MONK, WILDA L 791.0 MICROALBUMINURIA 02/22/2013 EATON BUDDHIST MONK, WILDA L V58.69 HIGH RISK MEDICATION (LONG-TERM) 02/22/2013 WINNIE DDS, KENROY D 338.29 CHRONIC PAIN 02/22/2013 WINNIE DDS, KENROY D 401.9 ESSENTIAL HYPERTENSION 02/22/2013 WINNIE DDS, KENROY D 791.0 MICROALBUMINURIA 02/22/2013 WINNIE DDS, KENROY D V58.69 HIGH RISK MEDICATION (LONG-TERM) 02/22/2013 LARSEN DO, ARIANA K 338.29 CHRONIC PAIN 02/22/2013 LARSEN DO, ARIANA K 401.9 ESSENTIAL HYPERTENSION 02/22/2013 LARSEN DO, ARIANA K 791.0 MICROALBUMINURIA 02/22/2013 LARSEN DO, ARIANA K V58.69 HIGH RISK MEDICATION (LONG-TERM) 02/22/2013 WINNIE DDS, KENROY D 338.29 CHRONIC PAIN 02/22/2013 WINNIE DDS, KENROY D 401.9 ESSENTIAL HYPERTENSION 02/22/2013 WINNIE DDS, KENROY D 791.0 MICROALBUMINURIA 02/22/2013 WINNIE DDS, KENROY D V58.69 HIGH RISK MEDICATION (LONG-TERM) 02/22/2013 WINNIE DDS, KENROY D 338.29 CHRONIC PAIN 02/22/2013 WINNIE DDS, KENROY D 401.9 ESSENTIAL HYPERTENSION 02/22/2013 WINNIE DDS, KENROY D 791.0 MICROALBUMINURIA 02/22/2013 WINNIE DDS, KENROY D V58.69 HIGH RISK MEDICATION (LONG-TERM) 02/22/2013 LARSEN DO, ARIANA K 338.29 CHRONIC PAIN 02/22/2013 LARSEN DO, ARIANA K 401.9 ESSENTIAL HYPERTENSION 02/22/2013 LARSEN DO, ARIANA K 791.0 MICROALBUMINURIA 02/22/2013 LARSEN DO, ARIANA K V58.69 HIGH RISK MEDICATION (LONG-TERM) 02/22/2013 LARSEN DO, ARIANA K 338.29 CHRONIC PAIN 02/22/2013 LARSEN DO, ARIANA K 401.9 ESSENTIAL HYPERTENSION 02/22/2013 LARSEN DO, ARIANA K 791.0 MICROALBUMINURIA 02/22/2013 LARSEN DO, ARIANA K V58.69 HIGH RISK MEDICATION (LONG-TERM) 02/22/2013 RAJOTTE BUDDHIST MONK, JEANINE A 338.29 CHRONIC PAIN 02/22/2013 RAJOTTE BUDDHIST MONK, JENAINE A 401.9 ESSENTIAL HYPERTENSION 02/22/2013 RAJOTTE BUDDHIST MONK, JEANINE A 791.0 MICROALBUMINURIA 02/22/2013 RAJOTTE BUDDHIST MONK, JEANINE A V58.69 HIGH RISK MEDICATION (LONG-TERM) 02/22/2013 EATON BUDDHIST MONK, WILDA L 338.29 CHRONIC PAIN 02/22/2013 EATON BUDDHIST MONK, WILDA L 401.9 ESSENTIAL HYPERTENSION 02/22/2013 EATON BUDDHIST MONK, WILDA L 791.0 MICROALBUMINURIA 02/22/2013 EATON BUDDHIST MONK, WILDA L V58.69 HIGH RISK MEDICATION (LONG-TERM) 02/22/2013 EATON BUDDHIST MONK, WILDA L 338.29 CHRONIC PAIN 02/22/2013 EATON BUDDHIST MONK, WILDA L 401.9 ESSENTIAL HYPERTENSION 02/22/2013 EATON BUDDHIST MONK, WILDA L 791.0 MICROALBUMINURIA 02/22/2013 EATON BUDDHIST MONK, WILDA L V58.69 HIGH RISK MEDICATION (LONG-TERM) 02/22/2013 EATON BUDDHIST MONK, WILDA L 338.29 CHRONIC PAIN 02/22/2013 EATON BUDDHIST MONK, WILDA L 401.9 ESSENTIAL HYPERTENSION 02/22/2013 EATON BUDDHIST MONK, WILDA L 791.0 MICROALBUMINURIA 02/22/2013 EATON BUDDHIST MONK, WILDA L V58.69 HIGH RISK MEDICATION (LONG-TERM) 02/22/2013 MARIA BUDDHIST MONK, FRANCISCO R 338.29 CHRONIC PAIN 02/22/2013 MARIA BUDDHIST MONK, FRANCISCO R 401.9 ESSENTIAL HYPERTENSION 02/22/2013 MARIA BUDDHIST MONK, FRANCISCO R 791.0 MICROALBUMINURIA 02/22/2013 MARIA BUDDHIST MONK, FRANCISCO R V58.69 HIGH RISK MEDICATION (LONG-TERM) 02/22/2013 LARSEN DO, ARIANA K 338.29 CHRONIC PAIN 02/22/2013 LARSEN DO, ARIANA K 401.9 ESSENTIAL HYPERTENSION 02/22/2013 LARSEN DO, ARIANA K 791.0 MICROALBUMINURIA 02/22/2013 LARSEN DO, ARIANA K V58.69 HIGH RISK MEDICATION (LONG-TERM) 02/22/2013 EATON BUDDHIST MONK, WILDA L 338.29 CHRONIC PAIN 02/22/2013 EATON BUDDHIST MONK, WILDA L 401.9 ESSENTIAL HYPERTENSION 02/22/2013 EATON BUDDHIST MONK, WILDA L 791.0 MICROALBUMINURIA 02/22/2013 EATON BUDDHIST MONK, WILDA L V58.69 HIGH RISK MEDICATION (LONG-TERM) 04/16/2013 LARSEN DO, ARIANA K 465.9 UPPER RESPIRATORY INFECTION 04/16/2013 EATON BUDDHIST MONK, WILDA L 465.9 UPPER RESPIRATORY INFECTION 04/16/2013 EATON BUDDHIST MONK, WILDA L 465.9 UPPER RESPIRATORY INFECTION 04/16/2013 EATON BUDDHIST MONK, WILDA L 465.9 UPPER RESPIRATORY INFECTION 04/16/2013 EATON BUDDHIST MONK, WILDA L 465.9 UPPER RESPIRATORY INFECTION 04/16/2013 LARSEN DO, ARIANA K 465.9 UPPER RESPIRATORY INFECTION 04/16/2013 EATON BUDDHIST MONK, WILDA L 465.9 UPPER RESPIRATORY INFECTION 04/16/2013 EATON BUDDHIST MONK, WILDA L 465.9 UPPER RESPIRATORY INFECTION 04/16/2013 EATON BUDDHIST MONK, WILDA L 465.9 UPPER RESPIRATORY INFECTION 04/16/2013 WINNIE LONG, KENROY Ferrari 465.9 UPPER RESPIRATORY INFECTION 04/16/2013 LARSEN DO, ARIANA K 465.9 UPPER RESPIRATORY INFECTION 04/16/2013 WINNIE DDS, KENROY D 465.9 UPPER RESPIRATORY INFECTION 04/16/2013 WINNIE DDS, KENROY D 465.9 UPPER RESPIRATORY INFECTION 04/16/2013 LARSEN DO, ARIANA K 465.9 UPPER RESPIRATORY INFECTION 04/16/2013 LARSEN DO, ARIANA K 465.9 UPPER RESPIRATORY INFECTION 04/16/2013 RAJOTTE BUDDHIST MONK, JEANINE A 465.9 UPPER RESPIRATORY INFECTION 04/16/2013 EATON BUDDHIST MONK, WILDA L 465.9 UPPER RESPIRATORY INFECTION 04/16/2013 EATON BUDDHIST MONK, WILDA L 465.9 UPPER RESPIRATORY INFECTION 04/16/2013 EATON BUDDHIST MONK, WILDA L 465.9 UPPER RESPIRATORY INFECTION 04/16/2013 FRANCISCO MARIA APRN 465.9 UPPER RESPIRATORY INFECTION 04/16/2013 LARSEN DO, ARIANA K 465.9 UPPER RESPIRATORY INFECTION 04/16/2013 EATON BUDDHIST MONK, WILDA L 465.9 UPPER RESPIRATORY INFECTION 07/02/2013 EATON BUDDHIST MONK, WILDA L 696.1 PSORIASIS 07/02/2013 EATON BUDDHIST MONK, WILDA L 696.1 PSORIASIS 07/02/2013 LARSEN DO, ARIANA K 696.1 PSORIASIS 07/02/2013 EATON BUDDHIST MONK, WILDA L 696.1 PSORIASIS 07/02/2013 EATON BUDDHIST MONK, WILDA L 696.1 PSORIASIS 07/02/2013 EATON BUDDHIST MONK, WILDA L 696.1 PSORIASIS 07/02/2013 WINNIE DDS, KENROY D 696.1 PSORIASIS 07/02/2013 LARSEN DO, ARIANA K 696.1 PSORIASIS 07/02/2013 WINNIE DDS, KERNOY D 696.1 PSORIASIS 07/02/2013 WINNIE DDS, KENROY D 696.1 PSORIASIS 07/02/2013 LARSEN DO, ARIANA K 696.1 PSORIASIS 07/02/2013 LARSEN DO, ARIANA K 696.1 PSORIASIS 07/02/2013 RAJOTTE BUDDHIST MONK, JEANINE A 696.1 PSORIASIS 07/02/2013 EATON BUDDHIST MONK, WILDA L 696.1 PSORIASIS 07/02/2013 EATON BUDDHIST MONK, WILDA L 696.1 PSORIASIS 07/02/2013 EATON BUDDHIST MONK, WILDA L 696.1 PSORIASIS 07/02/2013 FRANCISCO MARIA APRN 696.1 PSORIASIS 07/02/2013 LARSEN DO, ARIANA K 696.1 PSORIASIS 07/02/2013 EATON BUDDHIST MONK, WILDA L 696.1 PSORIASIS 07/08/2013 EATON BUDDHIST MONK, WILDA L V04.81 FLU SHOT 07/08/2013 EATON BUDDHIST MONK, WILDA L V58.32 SUTURE REMOVAL 07/08/2013 LARSEN DO, ARIANA K V04.81 FLU SHOT 07/08/2013 LARSEN DO, ARIANA K V58.32 SUTURE REMOVAL 07/08/2013 EATON BUDDHIST MONK, WILDA L V04.81 FLU SHOT 07/08/2013 EATON BUDDHIST MONK, WILDA L V58.32 SUTURE REMOVAL 07/08/2013 EATON BUDDHIST MONK, WILDA L V04.81 FLU SHOT 07/08/2013 EATON BUDDHIST MONK, WILDA L V58.32 SUTURE REMOVAL 07/08/2013 EATON BUDDHIST MONK, WILDA L V04.81 FLU SHOT 07/08/2013 EATON BUDDHIST MONK, WILDA L V58.32 SUTURE REMOVAL 07/08/2013 WINNIE DDS, KENROY D V04.81 FLU SHOT 07/08/2013 WINNIE DDS, KENROY D V58.32 SUTURE REMOVAL 07/08/2013 LARSEN DO, ARIANA K V04.81 FLU SHOT 07/08/2013 LARSEN DO, ARIANA K V58.32 SUTURE REMOVAL 07/08/2013 WINNIE DDS, KENROY D V04.81 FLU SHOT 07/08/2013 WINNIE DDS, KENROY D V58.32 SUTURE REMOVAL 07/08/2013 WINNIE DDS, KENROY D V04.81 FLU SHOT 07/08/2013 WINNIE DDS, KENROY D V58.32 SUTURE REMOVAL 07/08/2013 LARSEN DO, ARIANA K V04.81 FLU SHOT 07/08/2013 LARSEN DO, ARIANA K V58.32 SUTURE REMOVAL 07/08/2013 LARSEN DO, ARIANA K V04.81 FLU SHOT 07/08/2013 LARSEN DO, ARIANA K V58.32 SUTURE REMOVAL 07/08/2013 RAJDENNISE BUDDHIST MONK, JEANINE A V04.81 FLU SHOT 07/08/2013 RAJOTTE BUDDHIST MONK, JEANINE A V58.32 SUTURE REMOVAL 07/08/2013 EATON BUDDHIST MONK, WILDA L V04.81 FLU SHOT 07/08/2013 EATON BUDDHIST MONK, WILDA L V58.32 SUTURE REMOVAL 07/08/2013 EATON BUDDHIST MONK, WILDA L V04.81 FLU SHOT 07/08/2013 EATON BUDDHIST MONK, WILDA L V58.32 SUTURE REMOVAL 07/08/2013 EATON BUDDHIST MONK, WILDA L V04.81 FLU SHOT 07/08/2013 EATON BUDDHIST MONK, WILDA L V58.32 SUTURE REMOVAL 07/08/2013 MARIA BUDDHIST MONKFRANCISCO V04.81 FLU SHOT 07/08/2013 MARIA BUDDHIST MONK, FRANCISCO Tang V58.32 SUTURE REMOVAL 07/08/2013 LARSEN DO, ARIANA K V04.81 FLU SHOT 07/08/2013 LARSEN DO, ARIANA K V58.32 SUTURE REMOVAL 07/08/2013 EATON BUDDHIST MONK, WILDA L V04.81 FLU SHOT 07/08/2013 EATON BUDDHIST MONK, WILDA L V58.32 SUTURE REMOVAL 07/15/2013 LARSEN DO, ARIANA K 686.9 DERMATOLOGY - BACTERIAL 07/15/2013 EATON BUDDHIST MONK, WILDA L 686.9 DERMATOLOGY - BACTERIAL 07/15/2013 EATON BUDDHIST MONK, WILDA L 686.9 DERMATOLOGY - BACTERIAL 07/15/2013 EATON BUDDHIST MONK, WILDA L 686.9 DERMATOLOGY - BACTERIAL 07/15/2013 WINNIE DDS, KENROY D 686.9 DERMATOLOGY - BACTERIAL 07/15/2013 LARSEN DO, ARIANA K 686.9 DERMATOLOGY - BACTERIAL 07/15/2013 WINNIE DDS, KENROY D 686.9 DERMATOLOGY - BACTERIAL 07/15/2013 WINNIE DDS, KENROY D 686.9 DERMATOLOGY - BACTERIAL 07/15/2013 LARSEN DO, ARIANA K 686.9 DERMATOLOGY - BACTERIAL 07/15/2013 LARSEN DO, ARIANA K 686.9 DERMATOLOGY - BACTERIAL 07/15/2013 LUIZ KAISERNJEANINE 686.9 DERMATOLOGY - BACTERIAL 07/15/2013 EATON BUDDHIST MONK, WILDA L 686.9 DERMATOLOGY - BACTERIAL 07/15/2013 EATON BUDDHIST MONK, WILDA L 686.9 DERMATOLOGY - BACTERIAL 07/15/2013 EATON BUDDHIST MONK, WILDA L 686.9 DERMATOLOGY - BACTERIAL 07/15/2013 MARIA BUDDHIST MONKFRANCISCO Blackwell 686.9 DERMATOLOGY - BACTERIAL 07/15/2013 LARSEN JAMI PINEDAA K 686.9 DERMATOLOGY - BACTERIAL 07/15/2013 WILDA PATEL APRN L 686.9 DERMATOLOGY - BACTERIAL 08/08/2013 WILDA PATEL APRN L 305.20 CANNABIS ABUSE 08/08/2013 WILDA PATEL APRN L V13.9 reported a history of precancerous neoplasm 08/08/2013 KASSANDRA PATEL APRNSON L V76.12 Mammogram Screening 08/08/2013 WILDA PATEL APRN L 305.20 CANNABIS ABUSE 08/08/2013 WILDA PATEL APRN L V13.9 reported a history of precancerous neoplasm 08/08/2013 KASSANDRA PATEL APRNSON L V76.12 Mammogram Screening 08/08/2013 KASSANDRA PATEL APRNSON L 305.20 CANNABIS ABUSE 08/08/2013 WILDA PATEL APRN L V13.9 reported a history of precancerous neoplasm 08/08/2013 KASSANDRA PATEL APRNSON L V76.12 Mammogram Screening 08/08/2013 KENROY ZHOU DDS 305.20 CANNABIS ABUSE 08/08/2013 KENROY ZHOU DDS V13.9 reported a history of precancerous neoplasm 08/08/2013 KENROY ZHOU DDS V76.12 Mammogram Screening 08/08/2013 JAMI LARSEN DOA K 305.20 CANNABIS ABUSE 08/08/2013 JAMI LARSEN DOA K V13.9 reported a history of precancerous neoplasm 08/08/2013 JAMI LARSEN DOA K V76.12 Mammogram Screening 08/08/2013 KENROY ZHOU DDS 305.20 CANNABIS ABUSE 08/08/2013 KENROY ZHOU DDS V13.9 reported a history of precancerous neoplasm 08/08/2013 KENROY ZHOU DDS V76.12 Mammogram Screening 08/08/2013 KENROY ZHOU DDS 305.20 CANNABIS ABUSE 08/08/2013 KENROY ZHOU DDS V13.9 reported a history of precancerous neoplasm 08/08/2013 KENROY ZHOU DDS V76.12 Mammogram Screening 08/08/2013 JAMI LARSEN DOA K 305.20 CANNABIS ABUSE 08/08/2013 LARSEN DO, ARIANA K V13.9 reported a history of precancerous neoplasm 08/08/2013 LARSEN DO, ARIANA K V76.12 Mammogram Screening 08/08/2013 LARSEN DO, ARIANA K 305.20 CANNABIS ABUSE 08/08/2013 LARSEN DO, ARIANA K V13.9 reported a history of precancerous neoplasm 08/08/2013 LARSEN DO, ARIANA K V76.12 Mammogram Screening 08/08/2013 LUIZ KAISERRosalva JEANINE A 305.20 CANNABIS ABUSE 08/08/2013 LUIZ KAISERRosalva JEANINE A V13.9 reported a history of precancerous neoplasm 08/08/2013 LUIZ KAISERRosalva JEANINE A V76.12 Mammogram Screening 08/08/2013 JORGE KAISERWILDA Blackwell L 305.20 CANNABIS ABUSE 08/08/2013 JORGE KAISERKASSANDRA BlackwellSON L V13.9 reported a history of precancerous neoplasm 08/08/2013 JORGE KAISERKASSANDRA BlackwellSON L V76.12 Mammogram Screening 08/08/2013 JORGE KAISERKASSANDRA BlackwellSON L 305.20 CANNABIS ABUSE 08/08/2013 JORGE KAISERKASSANDRA BlackwellSON L V13.9 reported a history of precancerous neoplasm 08/08/2013 JORGE KAISERKASSANDRA BlackwellSON L V76.12 Mammogram Screening 08/08/2013 JORGE KAISERKASSANDRA BlackwellSON L 305.20 CANNABIS ABUSE 08/08/2013 JORGE KAISERKASSANDRA BlackwellSON L V13.9 reported a history of precancerous neoplasm 08/08/2013 JORGE KAISERKASSANDRA BlackwellSON L V76.12 Mammogram Screening 08/08/2013 MARIAFRANCISCO ROSADO APRN R 305.20 CANNABIS ABUSE 08/08/2013 FRANCISCO MARIA APRN R V13.9 reported a history of precancerous neoplasm 08/08/2013 MARIAFRANCISCO ROSADO APRN R V76.12 Mammogram Screening 08/08/2013 LARSEN DO, ARIANA K 305.20 CANNABIS ABUSE 08/08/2013 LARSEN DO, ARIANA K V13.9 reported a history of precancerous neoplasm 08/08/2013 LARSEN DO, ARIANA K V76.12 Mammogram Screening 08/08/2013 JORGE KAISERKASSANDRA BlackwellSON L 305.20 CANNABIS ABUSE 08/08/2013 WILDA PATEL APRN L V13.9 reported a history of precancerous neoplasm 08/08/2013 JORGE KAISERNWILDA L V76.12 Mammogram Screening 08/15/2013 JORGE KAISERN, WILDA L 724.4 LUMBAR RADICULOPATHY L5 08/15/2013 JORGE KAISERN, WILDA L 724.4 LUMBAR RADICULOPATHY L5 08/15/2013 WINNIE DDS, KENROY D 724.4 LUMBAR RADICULOPATHY L5 08/15/2013 LARSEN DO, ARIANA K 724.4 LUMBAR RADICULOPATHY L5 08/15/2013 WINNIE DDS, KENROY D 724.4 LUMBAR RADICULOPATHY L5 08/15/2013 WINNIE DDS, KENROY D 724.4 LUMBAR RADICULOPATHY L5 08/15/2013 LARSEN DO ARIANA K 724.4 LUMBAR RADICULOPATHY L5 08/15/2013 LARSEN DOJAMIA K 724.4 LUMBAR RADICULOPATHY L5 08/15/2013 JEANINE DEE APRN A 724.4 LUMBAR RADICULOPATHY L5 08/15/2013 EATESTIVEN KAISERN, WILDA L 724.4 LUMBAR RADICULOPATHY L5 08/15/2013 EATESTIVEN KAISERN, WILDA L 724.4 LUMBAR RADICULOPATHY L5 08/15/2013 EATESTIVEN KAISERN, WILDA L 724.4 LUMBAR RADICULOPATHY L5 08/15/2013 FRANCISCO MARIA APRN R 724.4 LUMBAR RADICULOPATHY L5 08/15/2013 LARSEN DO ARIANA K 724.4 LUMBAR RADICULOPATHY L5 08/15/2013 EATESTIVEN KAISERNKASSANDRAWILDA L 724.4 LUMBAR RADICULOPATHY L5 08/20/2013 JORGE KAISERNKASSANDRAWILDA L 466.0 ACUTE BRONCHITIS 08/20/2013 WINNIE DDS, KENROY Ferrari 466.0 ACUTE BRONCHITIS 08/20/2013 LARSEN DO ARIANA K 466.0 ACUTE BRONCHITIS 08/20/2013 WINNIE DDS, KENROY Ferrari 466.0 ACUTE BRONCHITIS 08/20/2013 WINNIE DDS, KENROY Ferrari 466.0 ACUTE BRONCHITIS 08/20/2013 LARSEN DO ARIANA K 466.0 ACUTE BRONCHITIS 08/20/2013 LARSEN DO, ARIANA K 466.0 ACUTE BRONCHITIS 08/20/2013 RAJOTTE BUDDHIST MONK, JEANINE A 466.0 ACUTE BRONCHITIS 08/20/2013 EATON BUDDHIST MONK, WILDA L 466.0 ACUTE BRONCHITIS 08/20/2013 EATON BUDDHIST MONK, WILDA L 466.0 ACUTE BRONCHITIS 08/20/2013 EATON BUDDHIST MONK, WILDA L 466.0 ACUTE BRONCHITIS 08/20/2013 FRANCISCO MARIA APRN R 466.0 ACUTE BRONCHITIS 08/20/2013 LARSEN DO, ARIANA K 466.0 ACUTE BRONCHITIS 08/20/2013 EATON BUDDHIST MONK, WILDA L 466.0 ACUTE BRONCHITIS 09/17/2013 LARSEN DO, ARIANA K 300.4 DYSTHYMIC DISORDER 09/17/2013 LARSEN DO, ARIANA K 530.81 GERD 09/17/2013 LARSEN DO, ARIANA K V65.42 TOBACCO COUNSELING 09/17/2013 WINNIE DDS, KENROY D 300.4 DYSTHYMIC DISORDER 09/17/2013 WINNIE DDS, KENROY D 530.81 GERD 09/17/2013 WINNIE DDS, KENROY D V65.42 TOBACCO COUNSELING 09/17/2013 WINNIE DDS, KENROY D 300.4 DYSTHYMIC DISORDER 09/17/2013 WINNIE DDS, KENROY D 530.81 GERD 09/17/2013 WINNIE DDS, KENROY D V65.42 TOBACCO COUNSELING 09/17/2013 LARSEN DO, ARIANA K 300.4 DYSTHYMIC DISORDER 09/17/2013 LARSEN DO, ARIANA K 530.81 GERD 09/17/2013 LARSEN DO, ARIANA K V65.42 TOBACCO COUNSELING 09/17/2013 LARSEN DO, ARIANA K 300.4 DYSTHYMIC DISORDER 09/17/2013 LARSEN DO, ARIANA K 530.81 GERD 09/17/2013 LARSEN DO, ARIANA K V65.42 TOBACCO COUNSELING 09/17/2013 RAJOTTE BUDDHIST MONK, JEANINE A 300.4 DYSTHYMIC DISORDER 09/17/2013 RAJOTTE BUDDHIST MONK, JEANINE A 530.81 GERD 09/17/2013 RAJOTTE BUDDHIST MONK, JEANINE A V65.42 TOBACCO COUNSELING 09/17/2013 EATON BUDDHIST MONK, WILDA L 300.4 DYSTHYMIC DISORDER 09/17/2013 EATON BUDDHIST MONK, WILDA L 530.81 GERD 09/17/2013 EATON BUDDHIST MONK, WILDA L V65.42 TOBACCO COUNSELING 09/17/2013 EATON BUDDHIST MONK, WILDA L 300.4 DYSTHYMIC DISORDER 09/17/2013 EATON BUDDHIST MONK, WILDA L 530.81 GERD 09/17/2013 EATON BUDDHIST MONK, WILDA L V65.42 TOBACCO COUNSELING 09/17/2013 EATON BUDDHIST MONK, WILDA L 300.4 DYSTHYMIC DISORDER 09/17/2013 EATON BUDDHIST MONK, WILDA L 530.81 GERD 09/17/2013 EATON BUDDHIST MONK, WILDA L V65.42 TOBACCO COUNSELING 09/17/2013 MARIA FRANCISCO HAIDER R 300.4 DYSTHYMIC DISORDER 09/17/2013 MARIA VITALY FRANCISCO R 530.81 GERD 09/17/2013 MARIA FRANCISCO HAIDER R V65.42 TOBACCO COUNSELING 09/17/2013 LARSEN DO ARIANA K 300.4 DYSTHYMIC DISORDER 09/17/2013 LARSEN DO ARIANA K 530.81 GERD 09/17/2013 LARSEN DO ARIANA K V65.42 TOBACCO COUNSELING 09/17/2013 EATON BUDDHIST MONK, WILDA L 300.4 DYSTHYMIC DISORDER 09/17/2013 EATON BUDDHIST MONK, WILDA L 530.81 GERD 09/17/2013 EATON BUDDHIST MONK, WILDA L V65.42 TOBACCO COUNSELING 01/01/2014 LARSEN DO ARIANA K 477.9 ALLERGIC RHINITIS CAUSE UNSPECIFIED 01/01/2014 LARSEN DO ARIANA K 786.2 COUGH 01/01/2014 RAJOTTE BUDDHIST MONK, JEANINE A 477.9 ALLERGIC RHINITIS CAUSE UNSPECIFIED 01/01/2014 RAJOTTE BUDDHIST MONK, JEANINE A 786.2 COUGH 01/01/2014 EATON BUDDHIST MONK, WILDA L 477.9 ALLERGIC RHINITIS CAUSE UNSPECIFIED 01/01/2014 EATON BUDDHIST MONK, WILDA L 786.2 COUGH 01/01/2014 EATON BUDDHIST MONK, WILDA L 477.9 ALLERGIC RHINITIS CAUSE UNSPECIFIED 01/01/2014 EATON BUDDHIST MONK, WILDA L 786.2 COUGH 01/01/2014 EATON BUDDHIST MONK, WILDA L 477.9 ALLERGIC RHINITIS CAUSE UNSPECIFIED 01/01/2014 EATON BUDDHIST MONK, WILDA L 786.2 COUGH 01/01/2014 MARIAFRANCISCO ROSADO APRN 477.9 ALLERGIC RHINITIS CAUSE UNSPECIFIED 01/01/2014 MARIA BUDDHIST MONKFRANCISCO Blackwell 786.2 COUGH 01/01/2014 LARSEN DO, ARIANA K 477.9 ALLERGIC RHINITIS CAUSE UNSPECIFIED 01/01/2014 LARSEN DO, ARIANA K 786.2 COUGH 01/01/2014 EATON BUDDHIST MONK, WILDA L 477.9 ALLERGIC RHINITIS CAUSE UNSPECIFIED 01/01/2014 EATON BUDDHIST MONK, WILDA L 786.2 COUGH 02/06/2014 RAJOTTE BUDDHIST MONK, JEANINE A V76.10 BREAST SCREENING UNSPECIFIED 02/06/2014 EATON BUDDHIST MONK, WILDA L V76.10 BREAST SCREENING UNSPECIFIED 02/06/2014 EATON BUDDHIST MONK, WILDA L V76.10 BREAST SCREENING UNSPECIFIED 02/06/2014 EATON BUDDHIST MONK, WILDA L V76.10 BREAST SCREENING UNSPECIFIED 02/06/2014 MARIA BUDDHIST MONKFRANCISCO Blackwell R V76.10 BREAST SCREENING UNSPECIFIED 02/06/2014 LARSEN DO, ARIANA K V76.10 BREAST SCREENING UNSPECIFIED 02/06/2014 EATON BUDDHIST MONK, WILDA L V76.10 BREAST SCREENING UNSPECIFIED 04/16/2014 EATON BUDDHIST MONK, WILDA L 790.6 LIVER FUNCTION TEST, ABNORMAL 04/16/2014 EATON BUDDHIST MONK, WILDA L 790.6 LIVER FUNCTION TEST, ABNORMAL 04/16/2014 EATON BUDDHIST MONK, WILDA L 790.6 LIVER FUNCTION TEST, ABNORMAL 04/16/2014 MARIA BUDDHIST MONKFRANCISCO Blackwell R 790.6 LIVER FUNCTION TEST, ABNORMAL 04/16/2014 LARSEN DO, ARIANA K 790.6 LIVER FUNCTION TEST, ABNORMAL 04/16/2014 EATON BUDDHIST MONK, WILDA L 790.6 LIVER FUNCTION TEST, ABNORMAL 05/08/2014 EATON BUDDHIST MONK, WILDA L 571.8 OTHER CHRONIC NONALCOHOLIC LIVER DISEASE 05/08/2014 EATON BUDDHIST MONK, WILDA L 789.02 ABDOMINAL PAIN LEFT UPPER QUADRANT 05/08/2014 MARIA FRANCISCO HAIDER 571.8 OTHER CHRONIC NONALCOHOLIC LIVER DISEASE 05/08/2014 MARIA FRANCISCO HAIDER 789.02 ABDOMINAL PAIN LEFT UPPER QUADRANT 05/08/2014 LARSEN DO, ARIANA K 571.8 OTHER CHRONIC NONALCOHOLIC LIVER DISEASE 05/08/2014 LARSEN DO, ARAINA K 789.02 ABDOMINAL PAIN LEFT UPPER QUADRANT 05/08/2014 WILDA PATEL APRN Prasanth 571.8 OTHER CHRONIC NONALCOHOLIC LIVER DISEASE 05/08/2014 WILDA PATEL APRN L 789.02 ABDOMINAL PAIN LEFT UPPER QUADRANT 05/30/2014 WILDA PATEL POLISHER EYEGLASS FRAMES Ot 790.5 09/29/2014 ARIANA LARSEN DO 388.70 OTALGIA UNSPECIFIED 09/29/2014 WILDA PATEL APRN Prasanth 388.70 OTALGIA UNSPECIFIED 10/14/2014 WILDA PATEL APRN Prasanth 272.1 HYPERTRIGLYCERIDEMIA 05/25/2015 IWLDA PATEL Prasanth POLISHER EYEGLASS FRAMES Ot 790.5 01/30/2019 TATA ALANIZ, JAKE Rader Ot Z01.818 ENCOUNTER FOR OTHER PREPROCEDURAL EXAMIN Procedures Code [place] [address] MAMMOGRAM, SCREENING 12/15/2011 75367 MICRO ALBUMIN-IN HOUSE 02/22/2013 68920 MICROALBUMIN 02/22/2013 43722 MICRO ALBUMIN-IN HOUSE 06/18/2013 06769 ROUTINE VENIPUNCTURE 06/19/2013 53032 ANGIOTEN 06/19/2013 46283 A1C (RML) 06/19/2013 62860 ESR/SED RATE 06/19/2013 31990 ASO 06/19/2013 53711 CRP 06/19/2013 Medical O [facility] 06/19/2013 35849 CBC 06/19/2013 [id number] GFR CALC (RESULT ONLY) 06/19/2013 73405 CMP 06/19/2013 26350 LIPID PANEL 06/19/2013 97163 HEPATITIS PROFILE 06/20/2013 04265 BIOPSY SKIN LESION (SINGLE) 07/02/2013 70701 HEMOCCULT 08/08/2013 53659 UA LONG DIP 08/08/2013 52892 URINE DRUG SCREEN (IN-HOUSE) 08/08/2013 74398 MAMMOGRAM, SCREENING 08/08/2013 76506 PAP SMEAR 08/08/2013 Q0091 PAP SMEAR OBTAIN SMEAR 08/08/2013 54858 OXIMETRY 08/20/2013 95810 ROUTINE VENIPUNCTURE 04/16/2014 54784 US LIVER ULTRASOUND 04/16/2014 11131 CMP 04/16/2014 54893 LIPID PANEL 04/16/2014 87146 A1C (RML) 04/16/2014 78757 CBC 04/16/2014 THYANA THYROID ANALYZER 04/16/2014 86358 ROUTINE VENIPUNCTURE 04/29/2014 26458 AFP TUMOR MARKER 04/30/2014 03268 A1C (IN-HOUSE) 10/14/2014 94610 ROUTINE VENIPUNCTURE 10/14/2014 37357 CMP 10/14/2014 03427 LIPID PANEL 10/14/2014 98774 AFP TUMOR MARKER 10/14/2014 74804 CBC 10/14/2014 16574 PT/INR 10/14/2014 79750 MITOCHONDRIAL ANTIBODY 10/14/2014 ANAANA UNA ANALYZER (SCREEN) 10/14/2014 Results Test Result Range CULTURE, URINE - 06/14/17 09:47 CULTURE, URINE, ROUTINE SEE NOTE NRG CULTURE, URINE - 11/23/17 08:54 CULTURE, URINE, ROUTINE SEE NOTE NRG GGT - 05/15/18 16:13 GGT 231 U/L 3-70 CBC - 05/15/18 16:13 WHITE BLOOD CELL COUNT 10.9 Thousand/uL 3.8-10.8 RED BLOOD CELL COUNT 4.28 Million/uL 3.80-5.10 HEMOGLOBIN 12.2 g/dL 11.7-15.5 HEMATOCRIT 37.3 % 35.0-45.0 MCV 87.1 fL 80.0-100.0 MCH 28.5 pg 27.0-33.0 MCHC 32.7 g/dL 32.0-36.0 RDW 12.9 % 11.0-15.0 PLATELET COUNT 618 Thousand/uL 140-400 MPV 10.1 fL 7.5-12.5 ABSOLUTE NEUTROPHILS 7227 cells/uL 6287-8911 ABSOLUTE LYMPHOCYTES 2627 cells/uL 850-3900 ABSOLUTE MONOCYTES 774 cells/uL 200-950 ABSOLUTE EOSINOPHILS 174 cells/uL 15-500 ABSOLUTE BASOPHILS 98 cells/uL 0-200 NEUTROPHILS 66.3 % NRG LYMPHOCYTES 24.1 % NRG MONOCYTES 7.1 % NRG EOSINOPHILS 1.6 % NRG BASOPHILS 0.9 % NRG CALCIUM, IONIZED - 05/15/18 16:13 CALCIUM, IONIZED 6.0 mg/dL 4.8-5.6 AFP TUMOR MARKER, SERUM - 05/15/18 16:13 ALPHA FETOPROTEIN, TUMOR MARKER 6.7 ng/mL NRG VITAMIN D, 25-H - 05/15/18 16:13 VITAMIN D,25-OH,TOTAL,IA 20 ng/mL 30-100 TEST AUTHORIZATION - 05/15/18 16:13 TEST NAME: HEPATITIS PANEL, GENERAL NR TEST CODE: [id number] NR CLIENT CONTACT: PEDRO ERWIN NR REPORT ALWAYS MESSAGE SIGNATURE NRG COMMENT NRG PTH (INTACT) - 05/15/18 16:13 CALCIUM 11.1 mg/dL 8.6-10.4 PARATHYROID HORMONE, INTACT 30 pg/mL 14-64 CBC - 11/08/18 07:58 WHITE BLOOD CELL COUNT 9.1 Thousand/uL 3.8-10.8 RED BLOOD CELL COUNT 4.51 Million/uL 3.80-5.10 HEMOGLOBIN 12.4 g/dL 11.7-15.5 HEMATOCRIT 38.2 % 35.0-45.0 MCV 84.7 fL 80.0-100.0 MCH 27.5 pg 27.0-33.0 MCHC 32.5 g/dL 32.0-36.0 RDW 13.8 % 11.0-15.0 PLATELET COUNT 531 Thousand/uL 140-400 MPV 9.8 fL 7.5-12.5 ABSOLUTE NEUTROPHILS 6689 cells/uL 6031-1633 ABSOLUTE LYMPHOCYTES 1447 cells/uL 850-3900 ABSOLUTE MONOCYTES 664 cells/uL 200-950 ABSOLUTE EOSINOPHILS 200 cells/uL 15-500 ABSOLUTE BASOPHILS 100 cells/uL 0-200 NEUTROPHILS 73.5 % NRG LYMPHOCYTES 15.9 % NRG MONOCYTES 7.3 % NRG EOSINOPHILS 2.2 % NRG BASOPHILS 1.1 % NRG Encounters ACCT No. Visit Date/Time Discharge Status Pt. Type Provider Facility Loc./Unit Complaint [id number] 12/12/2018 10:20:00 12/12/2018 23:59:59 CLS Outpatient WILDA PATEL APRN [facility] [id number] 11/08/2018 08:00:00 Document Registration [id number] 05/15/2018 15:20:00 Document Registration [id number] 11/23/2017 08:20:00 Document Registration [id number] 06/14/2017 09:20:00 Document Registration [id number] 02/06/2019 09:57:00 02/06/2019 10:08:00 DIS Outpatient JAKE PAYTON MD [facility] PREOP CATARACT LEFT EYE [id number] 02/01/2019 07:32:00 02/01/2019 08:38:00 DIS Outpatient JAKE PAYTON MD [facility] RIGHT CATARACT [id number] 01/30/2019 05:41:00 01/30/2019 10:22:00 DIS Outpatient JAKE PAYTON MD [facility] PREOP RIGHT CATARACT [id number] 06/05/2018 10:00:00 06/05/2018 23:59:59 CLS Preadmit WILDA PATEL POLISHER EYEGLASS FRAMES [facility] RAD FATTY LIVER DISEASE [id number] 05/24/2018 07:49:00 05/24/2018 23:59:59 CLS Preadmit WILDA PATEL POLISHER EYEGLASS FRAMES [facility] RAD SERUM CALCIUM ELEVATED [id number] 05/25/2015 12:38:00 05/25/2015 23:59:59 CLS Outpatient WILDA PATEL POLISHER EYEGLASS FRAMES [facility] RAD [id number] 04/29/2014 09:00:00 04/29/2014 23:59:59 CLS Outpatient WILDA PATEL POLISHER EYEGLASS FRAMES [facility] RAD [id number] 02/08/2019 10:00:00 PEN Preadmit JAKE PAYTON MD [facility] CATARACT LEFT EYE [id number] 05/25/2015 14:35:00 Document Registration [id number] 05/25/2015 14:35:00 Document Registration [id number] 10/14/2014 16:21:00 10/14/2014 23:59:59 CLS Outpatient WILDA PATEL APRN [id number] 09/29/2014 13:08:00 09/29/2014 23:59:59 CLS Outpatient ARIANA LARSEN DO [id number] 07/19/2014 10:33:00 07/19/2014 23:59:59 CLS Outpatient FRANCISCO MARIA APRN [id number] 05/08/2014 07:26:00 05/08/2014 23:59:59 CLS Outpatient WILDA PATEL APRN [id number] 04/29/2014 07:55:00 04/29/2014 23:59:59 CLS Outpatient WILDA PATEL APRN [id number] 04/16/2014 07:17:00 04/16/2014 23:59:59 CLS Outpatient JORGE HAIDER WILDA Rader [id number] 02/06/2014 09:05:00 02/06/2014 23:59:59 CLS Outpatient JEANINE DEE APRN [id number] 01/01/2014 07:53:00 01/01/2014 23:59:59 CLS Outpatient LARSEN DOARIANA [id number] 11/28/2013 15:50:00 11/28/2013 23:59:59 CLS Outpatient LARSEN DO ARIANA Pickering [id number] 11/12/2013 14:38:00 11/12/2013 23:59:59 CLS Outpatient WINNIE DDSKENROY [id number] 10/18/2013 13:59:00 10/18/2013 23:59:59 CLS Outpatient WINNIE DDSKNEROY [id number] 09/17/2013 16:47:00 09/17/2013 23:59:59 CLS Outpatient CHAVA PINEDAARIANA [id number] 09/05/2013 10:53:00 09/05/2013 23:59:59 CLS Outpatient WINNIE DDSKENROY [id number] 08/20/2013 11:50:00 08/20/2013 23:59:59 CLS Outpatient JORGE HAIDER WILDA Rader [id number] 08/15/2013 13:55:00 08/15/2013 23:59:59 CLS Outpatient JORGE HAIDERWILDA [id number] 08/08/2013 15:09:00 08/08/2013 23:59:59 CLS Outpatient JORGE HAIDERWILDA [id number] 07/15/2013 15:47:00 07/15/2013 23:59:59 CLS Outpatient LARSEN DOARIANA [id number] 07/08/2013 14:09:00 07/08/2013 23:59:59 CLS Outpatient JORGE HAIDERWILDA [id number] 07/02/2013 10:40:00 07/02/2013 23:59:59 CLS Outpatient EATESTIVEN KAISERWILDA Blackwell [id number] 06/19/2013 07:58:00 06/19/2013 23:59:59 CLS Outpatient EATESTIVEN KAISERWILDA Blackwell [id number] 06/18/2013 11:46:00 06/18/2013 23:59:59 CLS Outpatient RYANESTIVEN WILDA HAIDER Prasanth [id number] 04/16/2013 09:46:00 04/16/2013 23:59:59 [facility] Outpatient ARIANA LARSEN DO [id number] 02/22/2013 11:14:00 Document Registration [id number] 11/21/2012 15:41:00 Document Registration [id number] 11/07/2012 15:36:00 Document Registration
== END 2019-02-08 09:45 | disposition home or self-care (01) ==
LOC: SDC 08:20
PROVIDERS: ATTEND Specialist
DX: H25.12 Age-related nuclear cataract, left eye (principal); F17.210 Nicotine dependence, cigarettes, uncomplicated; I10 Essential (primary) hypertension; F32.9 Major depressive disorder, single episode, unspecified; K21.9 Gastro-esophageal reflux disease without esophagitis; Z79.899 Other long term (current) drug therapy